=== PATIENT | male | born 1945 | race Caucasian/White ===

== ENCOUNTER 2017-01-26 18:01 | Inpatient (IN) ==
--- NOTE | 2017-01-26 18:03 | Emergency Department Note ---
Disposition Clinical Impression: Small bowel obstruction Disposition: Admitted As Inpatient Condition: Critical General Adult HPI - General Chief complaint: ED Abdominal Pain Stated complaint: Abdominal Pain Time Seen by Provider: 01/26/17 18:02 Nursing Notes Reviewed: Yes Vital Signs Reviewed: Yes - History of Present Illness HPI Narrative: Mr. Mccain, 71-year-old male, presents from home via EMS with chief complaint of abdominal pain. Onset 7 hours ago. Described as diffuse cramping. States he has had this same pain before and it was that his bowels were not moving. Patient has a past medical history of prostate cancer and colon cancer with colectomy and colostomy bag. Patient states he last replaced his colostomy bag 3 days ago and it is still empty on my initial evaluation. - Related Data Home Medications Medication Instructions Recorded Confirmed Atorvastatin [Lipitor] 40 mg PO DAILY 09/22/15 10/03/16 Ferrous Sulfate 325 mg PO BID 09/22/15 10/03/16 Furosemide [Lasix] 40 mg PO DAILY 09/22/15 10/03/16 Glimepiride [Amaryl] 4 mg PO DAILY 09/22/15 10/03/16 Potassium Chloride 40 meq PO DAILY 09/22/15 10/03/16 Ranitidine HCl [Zantac] 150 mg PO BID 09/22/15 10/03/16 Metoprolol [Lopressor] 25 mg PO BID 05/14/16 10/03/16 SitaGLIPtin [Januvia] 100 mg PO DAILY 05/14/16 10/03/16 Albuterol Sulfate [Proair Hfa] 2 puff IH Q4H PRN 06/07/16 10/03/16 Aspirin 81 mg PO DAILY 08/13/16 10/03/16 Diltiazem HCl [Diltiazem 24Hr Cd] 120 mg PO DAILY 08/13/16 10/03/16 Metformin [Glucophage] 500 mg PO BIDWM 08/13/16 10/03/16 Beclomethasone Diprop 80mcg [QVAR 1 puff IH BID 10/03/16 10/03/16 80 mcg] Previous Rx's Medication Instructions Recorded Docusate [Colace] 100 mg PO BID #60 capsule 09/30/15 Folic Acid 1 mg PO DAILY #30 tablet 11/01/15 Fluconazole [Diflucan] 400 mg PO DAILY #7 tablet 10/05/16 Nitrofurantoin [Macrodantin] 50 mg PO Q6HR #28 capsule 10/05/16 Allergies Allergy/AdvReac Type Severity Reaction Status Date / Time No Known Allergies Allergy Verified 10/03/16 08:58 All systems ED: reviewed and negative except as stated. Constitutional: Denies: fever, chills, weakness Cardiovascular: Denies: chest pain, palpitations, dyspnea on exertion, syncope Respiratory: Denies: cough, dyspnea, wheezes, hemoptysis Gastrointestinal: Reports: abdominal pain, nausea, constipation. Denies: vomiting, diarrhea, hematemesis, melena, hematochezia Genitourinary: Denies: dysuria Musculoskeletal: Denies: back pain Neurological: Denies: headache, weakness, numbness, paresthesias, confusion Hematological/Lymphatic: Denies: easy bleeding, easy bruising Past Medical History - Past Medical History Medical history: Reports: cancer, diabetes, GERD, hyperlipidemia, hypertension, kidney stones, other Surgical history: Reports: colectomy, colostomy, other (bladder stone removal) Psychiatric history: Reports: no psych history - Social History Smoking Status: Never smoker Smokeless Tobacco Status: No Alcohol use: Reports: none Drug use: Reports: none Physical Exam General: Patient is alert, oriented, and in no acute distress. HEENT: No facial asymmetry. Head is normocephalic and atraumatic. Trachea midline. Cardiovascular: Heart regular rate and rhythm without clicks, rubs, gallops, or murmurs. No JVD. PMI nondisplaced. Respiratory: Symmetric chest rise with good respiratory effort. Bilateral breath sounds are clear without wheezing, crackles, or rhonchi. Abdomen: Obese. Multiple well-healed postsurgical scars. Ostomy bag present in right lower quadrant abdominal wall. Ostomy mucosa is nonerythematous, non- pustulant, and appropriately proud of the abdominal wall. Ostomy bag with scant fluid and no stool. Bowel sounds present 4 quadrants. Abdomen diffusely tender, nondistended, without guarding. Psych: Patient's affect is appropriate for situation. Course Course Narrative: Chart check: Patient was discharged from this facility 10/03/16 with primary diagnosis of small bowel obstruction which resolved with conservative measures. Patient's lab work is concerning for elevated lactate with mild leukocytosis. Patient CT scan without IV with oral contrast indicates small bowel structure. Abdomen/Pelvis CT 01/26/17 19:45 IMPRESSION: 1. Partial small bowel obstruction with a transition point in the pelvis probably in the distal ileum. 2. Status post left hemicolectomy with a right lower quadrant colostomy. 3. Significantly abnormal appearance of the urinary bladder unchanged from 01/10/2017. 4. Diffuse hepatic steatosis. 5. Status post cholecystectomy. D/ / Warner Arce MD / Warner Arce MD Interpreting Provider: Warner Arce MD We will continue IV fluid rehydration, continue nothing by mouth status, pain control, nausea control, place NG tube. Because the patient was seen this past September by Dr. Miller, [facility], will call the on-call surgeon, Dr. Li, to inquire as to his wishes for admission. Dr. Li agrees to admission to the hospitalist with [facility] following. Spoke with Dr. Echols, on-call hospitalist, he agrees to admission. Fluid Restrepo: 2 L while in the ED. Vital Signs Temperature 98.0 F 01/26/17 18:03 Pulse Rate 95 01/26/17 18:03 Respiratory Rate 18 01/26/17 18:03 Blood Pressure 176/87 01/26/17 18:03 O2 Sat by Pulse Oximetry 93 L 01/26/17 18:03 Temperature 98.0 F 01/26/17 18:03 Pulse Rate 105 01/26/17 21:00 Respiratory Rate 16 01/26/17 21:00 Blood Pressure 164/69 01/26/17 21:00 O2 Sat by Pulse Oximetry 95 01/26/17 21:00 Oxygen Delivery Oxygen Delivery Room Air Medical Decision Making - Medical Records Medical records reviewed: Yes I reviewed the patient's medical records. - Lab Data Result diagrams: 01/26/17 19:08 01/26/17 19:08 Lab Results 01/26/17 01/26/17 01/26/17 Range/Units 19:08 19:08 19:08 WBC 11.8 H (4.3-11.1) K/mcL RBC 4.94 (4.19-5.50) M/mcL Hgb 14.2 (12.9-16.9) g/dL Hct 44.4 (37.5-50.1) % MCV 89.9 (83.0-100.0) fL MCH 28.7 (28.0-33.3) pg MCHC 32.0 (31.6-35.5) g/dL RDW 14.6 H (11.5-14.5) % Plt Count 259 (140-400) K/mcL MPV 10.5 (9.4-12.4) fL Immature Gran % 0.6 (0-4) % Seg Neutrophils % 83.6 % Lymphocytes % 8.4 % Monocytes % 6.3 % Eosinophils % 0.3 % Basophils % 0.8 % Neutrophils # 9.9 H (1.6-8.9) K/mcL Lymphocytes # 1.0 (0.6-4.6) K/mcL Monocytes # 0.8 (0.0-1.3) K/mcL Eosinophils # 0.0 (0.0-0.6) K/mcL Basophils # 0.1 (0.0-0.2) K/mcL PT 12.8 H (9.4-12.1) Seconds INR 1.2 APTT 44.2 H (26.0-36.0) Seconds Sodium 142 (136-145) mEq/L Potassium 3.8 (3.5-4.5) mEq/L Chloride 100 (98-109) mEq/L Carbon Dioxide 27 (19-29) mEq/L BUN 19 (8-26) mg/dL Creatinine 1.17 (0.72-1.25) mg/dL Est GFR ( Amer) > 60 (> 60) Est GFR (Non-Af Amer) > 60 (> 60) BUN/Creatinine Ratio 16 (6-26) Glucose 198 H (70-99) mg/dL Calculated Osmolality 302 H (280-300) Lactic Acid (0.5-2.2) mmol/L Calcium 10.4 (8.6-10.8) mg/dL Total Bilirubin 0.5 (0.2-1.2) mg/dL Direct Bilirubin 0.3 (0.0-0.5) mg/dL Indirect Bilirubin 0.2 (0.0-1.2) mg/dL AST 52 H (5-34) Units/L ALT 36 (0-55) Units/L Alkaline Phosphatase 87 (38-126) Units/L Serum Total Protein 8.1 (6.0-8.3) g/dL Albumin 3.5 (3.5-5.0) g/dL Globulin 4.6 H (2.4-3.5) g/dL Albumin/Globulin Ratio 0.8 L (1.1-2.2) Lipase 32 (8-78) Units/L 01/26/17 Range/Units 19:08 WBC (4.3-11.1) K/mcL RBC (4.19-5.50) M/mcL Hgb (12.9-16.9) g/dL Hct (37.5-50.1) % MCV (83.0-100.0) fL MCH (28.0-33.3) pg MCHC (31.6-35.5) g/dL RDW (11.5-14.5) % Plt Count (140-400) K/mcL MPV (9.4-12.4) fL Immature Gran % (0-4) % Seg Neutrophils % % Lymphocytes % % Monocytes % % Eosinophils % % Basophils % % Neutrophils # (1.6-8.9) K/mcL Lymphocytes # (0.6-4.6) K/mcL Monocytes # (0.0-1.3) K/mcL Eosinophils # (0.0-0.6) K/mcL Basophils # (0.0-0.2) K/mcL PT (9.4-12.1) Seconds INR APTT (26.0-36.0) Seconds Sodium (136-145) mEq/L Potassium (3.5-4.5) mEq/L Chloride (98-109) mEq/L Carbon Dioxide (19-29) mEq/L BUN (8-26) mg/dL Creatinine (0.72-1.25) mg/dL Est GFR ( Amer) (> 60) Est GFR (Non-Af Amer) (> 60) BUN/Creatinine Ratio (6-26) Glucose (70-99) mg/dL Calculated Osmolality (280-300) Lactic Acid 4.3 H* (0.5-2.2) mmol/L Calcium (8.6-10.8) mg/dL Total Bilirubin (0.2-1.2) mg/dL Direct Bilirubin (0.0-0.5) mg/dL Indirect Bilirubin (0.0-1.2) mg/dL AST (5-34) Units/L ALT (0-55) Units/L Alkaline Phosphatase (38-126) Units/L Serum Total Protein (6.0-8.3) g/dL Albumin (3.5-5.0) g/dL Globulin (2.4-3.5) g/dL Albumin/Globulin Ratio (1.1-2.2) Lipase (8-78) Units/L - EKG Data EKG #1 EKG results narrative: EKG dated 01/26/17 at 18:16 interpreted as sinus rhythm with rate of 95. Normal intervals NH 124, QRS 93, QT/QTC 350/42. Normal axis. Nonspecific ST-T wave changes. Attestation Statement - Attestation Attestation: I examined this patient and my medical decision-making was reviewed with the MANAGER SYSTEMS/PA/Advanced Practice Nurse/Resident Physician. I agree with the documented findings, disposition and treatment plan as described except to the extent set forth below. [id number] time provided Patient presents via EMS from home. He has a known history of colon cancer and colostomy. He complains of abdominal pain. Symptoms started 7 hours ago. He does describe associated nausea and vomiting. He appears slightly uncomfortable on exam. Most recent CT abdomen and pelvis transcribed report dated December 2016 results reviewed by me
[2017-01-26] MEDS ORDERED: *HR* HYDROmorphone (PF) 1 MG/ML SYRINGE IVP ONE (18:04)
[2017-01-26] MEDS ORDERED: Ondansetron 4 MG/2 ML VIAL IVP STA ×2 (18:04→18:36)
[2017-01-26] MEDS ORDERED: 0.9 % Sodium Chloride 1,000 ML IVC ONE (18:05)
[2017-01-26 19:18] LABS: Basophils # 0.1 K/mcL (0.0-0.2); Basophils % 0.8 %; Eosinophils % 0.3 %; Hematocrit 44.4 % (37.5-50.1); Hemoglobin 14.2 g/dL (12.9-16.9); Immature Granulocytes % 0.6 % (0-4); Lymphocytes % 8.4 %; Mean Corpuscular Hemoglobin 28.7 pg (28.0-33.3); Mean Corpuscular Volume 89.9 fL (83.0-100.0); Mean Platelet Volume 10.5 fL (9.4-12.4); Monocytes # 0.8 K/mcL (0.0-1.3); Monocytes % 6.3 %; Neutrophils # 9.9 K/mcL (1.6-8.9); Platelet Count 259 K/mcL (140-400); Red Blood Count 4.94 M/mcL (4.19-5.50); Red Cell Distribution Width 14.6 % (11.5-14.5); Segmented Neutrophils % 83.6 %
[2017-01-26 19:23] LABS: INR 1.2; Prothrombin Time 12.8 Seconds (9.4-12.1)
[2017-01-26 19:25] LABS: Activated Partial Thrombo Time 44.2 Seconds (26.0-36.0)
[2017-01-26 19:34] LABS: Alanine Aminotransferase 36 Units/L (0-55); Albumin 3.5 g/dL (3.5-5.0); Albumin/Globulin Ratio 0.8 (1.1-2.2); Alkaline Phosphatase 87 Units/L (38-126); Aspartate Amino Transferase 52 Units/L (5-34); BUN/Creatinine Ratio 16 (6-26); Bilirubin,Direct 0.3 mg/dL (0.0-0.5); Bilirubin,Indirect 0.2 mg/dL (0.0-1.2); Bilirubin,Total 0.5 mg/dL (0.2-1.2); Blood Urea Nitrogen 19 mg/dL (8-26); Calcium 10.4 mg/dL (8.6-10.8); Carbon Dioxide 27 mEq/L (19-29); Chloride 100 mEq/L (98-109); Globulin 4.6 g/dL (2.4-3.5); Glucose 198 mg/dL (70-99); Lipase 32 Units/L (8-78); Osmolality,Calculated 302 (280-300); Potassium 3.8 mEq/L (3.5-4.5); Sodium 142 mEq/L (136-145); Total Protein 8.1 g/dL (6.0-8.3); eGFR For African Americans > 60 (> 60); eGFR For Non-African Americans > 60 (> 60)
[2017-01-26] MEDS ORDERED: *HR* Morphine 2 MG/ML SYRINGE IVP ONE ×2 (19:42→21:43)
[2017-01-26] MEDS ORDERED: *HR* Metoprolol 5 MG/5 ML VIAL IVP PRN (21:50)
[2017-01-26] MEDS ORDERED: *HR* Promethazine 25 MG/ML VIAL IVP PRN (21:50)
[2017-01-26] MEDS ORDERED: Ondansetron 4 MG/2 ML VIAL IVP PRN (21:50)
[2017-01-26] MEDS ORDERED: *HR* Dextrose 50 % in Water (Syg) 50 ML SYRINGE IVP PRN (21:56)
[2017-01-26] MEDS ORDERED: Dextrose Gel 15 GM PO PRN ×2 (21:56)
[2017-01-26] MEDS ORDERED: D5% in Water 1,000 ML IV PRN (21:56)
--- NOTE | 2017-01-26 21:57 | Internal Med History&Physical ---
Date of Encounter: 01/26/17 Time of Encounter: 21:57 Assessment and Plan (1) Small bowel obstruction Current visit: Yes Status: Acute Patient presented the emergency department with diffuse abdominal pain. Found on CT scan to have a partial small bowel projection with transition point in the pelvis, most likely distal ileum. Surgery consulted from the ED. NG tube placed and 1250 mL drained in the ED. Patient admitted for trial of conservative managment. Patient will be NPO with NG tube to low intermittent section. Supportive management. 1. NPO 2. NGT - low intermittent wall suction 3. Pain management 4. Zofran for nausea as needed 5. IVF at 124 mls/hour 6. KUB in the morning 7. Monitor electrolytes 8. Appreciate surgery evaluation and management. (2) Elevated lactic acid level Current visit: Yes Status: Acute Initial LA of 4.3. Believe this is secondary to patient's SBO. Patient given 2L fluids total and started on maintenance fluids. Will trend Lactic Acid. 1. Second fluid bolus 2. Maintenance fluids 3. Jaycob lactic acid. (3) Leg edema, left Current visit: Yes Status: Acute Patient found to have left lower extremity edema and redness. No warmth or tenderness. No wounds on exam. Will get a LLE venous duplex. 1. LLE venous duplex. (4) Diabetes mellitus Current visit: No Status: Chronic Patient with history of DM. Will hold oral medications. Check accuchecks every 6 hours. Low-dose sliding scale insulin. Qualifiers: Diabetes mellitus type: type 2 Diabetes mellitus complication status: with hyperglycemia Diabetes mellitus intermediate insulin use: without intermediate use Qualified Code(s): E11.65 - Type 2 diabetes mellitus with hyperglycemia (5) Hypertension Current visit: No Status: Chronic Patient with hypertension on PO medication. Will scheduled metoprolol 2.5mg IV every 8 hours to control blood pressures. Qualifiers: Hypertension type: essential hypertension Qualified Code(s): I10 - Essential (primary) hypertension (6) DVT prophylaxis Current visit: Yes Status: Acute Heparin for DVT prophylaxis. Internal Medicine - H&P: HPI Chief complaint: Abdominal pain Admitted From: Emergency Dept Plans for Post Hospital Care: Home History of present illness: Mr. Mccain is a 71 year old male with PMH of prostate cancer, colon cancer s/p left hemicolectomy and colostomy, failure of left lower quadrant colostomy, DM not on insulin, GERD, HLD and HTN. Patient presents to the ED with diffuse, cramping, abdominal pain starting this morning. He reports that the pain got progressively worse throughout the day until it was a 9/10 in severity. He reports similar pain in the past with previous bowel obstructions. Patient reports 2 previous small bowel obstructions managed conservatively. His last SBO was managed here at [facility] 09/2016. Patient reports associated decreased ostomy output. He reports that he last changed his ostomy bag 3 days ago and has had no output since. He also reporrts associated PINEDA and nausea/vomiting. He denies changes in vision, shortness of breath, chest pain or pressure, change in bladder function (incontience at baseline), or focal neurological deficits. In the ED, patient was afebrile, vital signs within normal limits. Labs revealed an elevated PT/PTT most likely secondary to liver disease. Lactic acid elevated at 4.3. CT done with oral contrast, no IV contrast, showed a partial SBO with transition point in the pelvis, most likely distal ileum. Dr. Li (general surgery) was called from the ED and he agreed to consult on the patient. Because of nausea/vomiting, NG tube was place and patient had 1250cc out immediately and then it was placed on low-intermittent wall suction. On exam, patient is awake and alert, no acute distress. NGT in place and draining appropriately. Heart regular rate and rhythm. Lungs clear to auscultation BL. There is a RLQ ostomy in place - site is clean and intact, no erythema or irritation noted. Minimal fecal output in the ostomy bag. Abdomen is distended and diffusely tender. No rebound, rigidity or guarding. Patient does have lower extremity swelling, left quite a bit worse than right. Left leg is also a little erythematous and warm. Patient reports it has been like that for 3-4 mo and has seen a doctor about it. Leg inspected - no open or healing wounds noted. Past Med Surg Social Fam HX - Past Medical History Medical history: cancer, diabetes, GERD, hyperlipidemia, hypertension, kidney stones, other Psychiatric history: no psych history - Past Surgical History Surgical History: colectomy, colostomy, other (bladder stone removal) - Social History Smoking Status: Never smoker Smokeless Tobacco Status: No Alcohol use: none Drug use: none - Family History Father Adopted: No Living Status: Hx Family Cardiac Disorders: Yes Hx Family Respiratory Disorders: No Hx Family Cancer: No Hx Family GI Disorders: No Hx Family Endocrine Disorder: No Hx Family Neuromuscular Disorders: No Hx Family Neurologic Disorders: No Hx Family HEENT Disorders: No Hx Family Autoimmune Disorders: No Internal Medicine - H&P: Meds Atorvastatin [Lipitor] 40 mg PO DAILY 09/22/15 [History] Ferrous Sulfate 325 mg PO BID 09/22/15 [History] Furosemide [Lasix] 40 mg PO DAILY 09/22/15 [History] Glimepiride [Amaryl] 4 mg PO DAILY 09/22/15 [History] Potassium Chloride 40 meq PO DAILY 09/22/15 [History] Ranitidine HCl [Zantac] 150 mg PO BID 09/22/15 [History] Docusate [Colace] 100 mg PO BID #60 capsule 09/30/15 [Rx] Folic Acid 1 mg PO DAILY #30 tablet 11/01/15 [Rx] Metoprolol [Lopressor] 25 mg PO BID 05/14/16 [History] SitaGLIPtin [Januvia] 100 mg PO DAILY 05/14/16 [History] Albuterol Sulfate [Proair Hfa] 2 puff IH Q4H PRN 06/07/16 [History] Aspirin 81 mg PO DAILY 08/13/16 [History] Diltiazem HCl [Diltiazem 24Hr Cd] 120 mg PO DAILY 08/13/16 [History] Metformin [Glucophage] 500 mg PO BIDWM 08/13/16 [History] Beclomethasone Diprop 80mcg [QVAR 80 mcg] 1 puff IH BID 10/03/16 [History] Fluconazole [Diflucan] 400 mg PO DAILY #7 tablet 10/05/16 [Rx] Nitrofurantoin [Macrodantin] 50 mg PO Q6HR #28 capsule 10/05/16 [Rx] Allergies No Known Allergies Allergy (Verified 10/03/16 08:58) All Systems PM: A 10-system review of systems was performed and is negative for pertinent findings except as documented above in the HPI. - Constitutional Constitutional: no chills, no fever(s), no falls - EENT Eyes: no blurry vision, no change in vision - Cardiovascular Cardiovascular ROS IM: no chest pain, no diaphoresis, no dyspnea, no dyspnea on exertion, no irregular heart rhythm, no lightheadedness, no palpitations - Respiratory Respiratory: no cough, no dyspnea, no dyspnea on exertion, no wheezing, no chest congestion - Gastrointestinal Gastrointestinal: abdominal pain, bloating, change in bowel habits, constipation , cramping, no diarrhea, no dysphagia, no hematemesis, no hematochezia, no melena - Genitourinary Genitourinary ROS male: urinary incontinence - Integumentary Additional comments: Left lower leg is swollen and red - Constitutional Vitals: Temp Pulse Resp BP Pulse Ox 98.0 F 106 18 174/101 93 L 01/26/17 18:03 01/26/17 21:50 01/26/17 21:50 01/26/17 21:50 01/26/17 21:50 General appearance: Present: A&O X 3, pleasant, no acute distress, answers questions appropriately - Head Head exam: Present: atraumatic, normal inspection, normocephalic - Eye Eye exam: Present: EOMI, normal appearance, PERRL - ENT ENT exam: Present: mucous membranes dry Additional comments: NG tube in place - Respiratory Respiratory exam: Present: CTAB. Absent: rales, rhonchi, wheezes - Cardiovascular Cardiovascular exam: Present: RRR - GI/Abdominal GI/Abdominal exam: Present: distended, normal bowel sounds, soft, tenderness. Absent: guarding, rebound, rigid Additional comments: RLQ colostomy - clean and intact, no signs of infection or irritation - Extremities Exam Extremities exam: Present: pedal edema (left leg). Absent: calf tenderness, tenderness, warm - Neurological Exam Neurological exam: Present: alert, CN II-XII intact, oriented X3, no focal deficits Internal Med - H&P Results - Labs CBC & Chem 7: 01/26/17 19:08 01/26/17 19:08 - Impressions ITS Impressions Abdomen/Pelvis CT 01/26/17 19:45 IMPRESSION: 1. Partial small bowel obstruction with a transition point in the pelvis probably in the distal ileum. 2. Status post left hemicolectomy with a right lower quadrant colostomy. 3. Significantly abnormal appearance of the urinary bladder unchanged from 01/10/2017. 4. Diffuse hepatic steatosis. 5. Status post cholecystectomy. D/ / Warner Arce MD / Warner Arce MD Interpreting Provider: Warner Arce MD
[2017-01-26] MEDS: 0.9 % Sodium Chloride 1,000 ML IVC SCH (22:02)
[2017-01-26 22:07] LABS: Hemoglobin A1C 6.9 %
[2017-01-26] MEDS: Insulin LISPRO 300 UNITS/3 ML VIAL SQ SCH (23:15)
--- NOTE | 2017-01-26 23:55 | Event Note ---
Date of Encounter: 01/26/17 Time of Encounter: 23:53 Patient seen and examined with medical supply technician. Agree with assessment and plan. Patient presents with small bowel obstruction. NG tube retrieved 1 L of intestinal secretion upon insertion. Patient has elevated lactic acid of 4.3. Likely related to the bowel obstruction. No clear infection source. Urine analysis will be checked. He is afebrile. Keep NPO continue NG tube total intermittent suction. Will give 2 liters bolus of normal saline. Continue normal saline 125/h afterwards. Surgery to see the patient.
[2017-01-27] MEDS ORDERED: 0.9 % Sodium Chloride 1,000 ML IVC ONE (00:21)
[2017-01-27] MEDS: *HR* Metoprolol 5 MG/5 ML VIAL IVP SCH ×4 (00:33→23:51)
[2017-01-27 04:29] LABS: Basophils % 0.5 %; Eosinophils % 0.3 %; Hematocrit 36.6 % (37.5-50.1); Immature Granulocytes % 0.6 % (0-4); Lymphocytes % 11.6 %; Mean Corpuscular HGB Conc 31.4 g/dL (31.6-35.5); Mean Corpuscular Hemoglobin 28.8 pg (28.0-33.3); Mean Corpuscular Volume 91.5 fL (83.0-100.0); Mean Platelet Volume 10.4 fL (9.4-12.4); Monocytes # 0.8 K/mcL (0.0-1.3); Monocytes % 8.7 %; Platelet Count 205 K/mcL (140-400); Red Cell Distribution Width 14.6 % (11.5-14.5); Segmented Neutrophils % 78.3 %
[2017-01-27 04:33] LABS: Hemoglobin 11.5 g/dL (12.9-16.9)
[2017-01-27 04:48] LABS: BUN/Creatinine Ratio 18 (6-26); Blood Urea Nitrogen 17 mg/dL (8-26); Carbon Dioxide 26 mEq/L (19-29); Chloride 105 mEq/L (98-109); Glucose 133 mg/dL (70-99); Magnesium 1.5 mg/dL (1.6-2.6); Osmolality,Calculated 297 (280-300); Phosphorous 3.7 mg/dL (2.3-4.7); Potassium 3.7 mEq/L (3.5-4.5); Sodium 142 mEq/L (136-145); eGFR For African Americans > 60 (> 60); eGFR For Non-African Americans > 60 (> 60)
[2017-01-27 04:59] LABS: Calcium 8.2 mg/dL (8.6-10.8)
[2017-01-27] MEDS: Insulin LISPRO 300 UNITS/3 ML VIAL SQ SCH ×3 (05:48→16:50)
[2017-01-27] MEDS: *HR* Heparin 5,000 UNIT/ML VIAL SQ SCH ×3 (05:55→21:29)
[2017-01-27] MEDS: Pantoprazole 40 MG VIAL IVP SCH (05:56)
[2017-01-27] MEDS: 0.9 % Sodium Chloride 1,000 ML IVC SCH (08:52)
[2017-01-27] MEDS ORDERED: Magnesium Sulfate 2 GM in D5% in Water 100 ML IVPB ONE (08:55)
[2017-01-27] MEDS ORDERED: Ringers Solution, Lactated 1,000 ML IVC SCH ×2 (09:00)
[2017-01-27] MEDS ORDERED: Potassium Chloride 20 MEQ in Ringers Solution, Lactated 1,000 ML IVC SCH (13:30)
--- NOTE | 2017-01-27 15:17 | Venous Imaging Report ---
LE Venous Duplex Patient Name:Oj Mccain Order Number:[id number] Procedure Date:01/27/2017 Date:1945ge:71 yrs Gender:Male Location:[facility] Room #: 3B54 Networking Administrator:Karen Gillespie RVT Referring MD:Natalie Allred DO apprentice stylist:Guillermo Garibay MD Reading MD:Bertin Bernard MD , FACS Secondary Indications: Risk Factors Yes/No Anticoagulants Yes Impressions: Left lower extremity: normal superficial and deep exam. Right lower extremity: normal contralateral exam. Recommendations: Test completed on 01/27/2017 at 9:31:07 am. Critical findings reported to Zoe RN in person at 9:31:14 am on 01/27/2017 by Karen Gillespie RVT. Findings Venous Duplex Results: Right: Venous imaging of the lower extremity reveals full patency and normal vessel compressibility of the right common femoral. Doppler signals in the evaluated veins were normal. Left: Venous imaging of the lower extremity reveals full patency and normal vessel compressibility of the left distal iliac, left common femoral, left superficial femoral, left popliteal, left posterior tibial, left peroneal, left great saphenous and left lesser saphenous. Doppler signals in the evaluated veins were normal. Updated by Bertin Bernard MD, FACS on 01/27/2017 3:13:58 PM Bertin Bernard MD electronically signed on 01/27/2017 3:14:31 PM with status of Final
[2017-01-27] MEDS: Potassium Chloride 20 MEQ in Ringers Solution, Lactated 1,000 ML IVC SCH ×2 (16:50→21:22)
[2017-01-27] MEDS: *HR* Morphine 2 MG/ML SYRINGE IVP PRN ×2 (17:01→21:27)
[2017-01-27] MEDS ORDERED: Chloraseptic Spray 177 ML BOTTLE MM PRN (21:21)
--- NOTE | 2017-01-27 23:58 | Internal Med Progress Note ---
Date of Encounter: 01/27/17 Time of Encounter: 14:30 - Subjective Interval history: Mr. Mccain is a 71 year old male with PMH of prostate cancer, colon cancer s/p left hemicolectomy and colostomy, failure of left lower quadrant colostomy, DM not on insulin, GERD, HLD and HTN. admitted with partial small bowel obstruction , CT evidence of transition point in the distal ileum. Giving his history of multiple abdominal surgeries, adhension suspected. He feels better, much less abdominal pain, or nausea. NG tube in place. O/E: Not in distress NG tube in place Dry oral mucosa likely due to mouth breathing (related to NG-tube) Chest: clinically clear Heart: RRR, HS1/2 no Abdomen: non-distended, soft, non-tender, no masses, BS+, DIRECTOR OF RESTAURANTS: aao x 3, no gross focal deficits Labs and imaging reviewed IMP Partial small bowel obstruction, NG- tube inserted, connected to low intermittent suction Lactic acidemia, corrected Left lower e xtremity swelling, likely venous insufficiency, no DVT on venous doppler DM2, NPO, accuchecks Q6H on low dose sliding scale HTN on metoprolol IV Q8H. Marginal hypomagnesemia, replaced DVT prophylaxis PLAN Switch fluid to RL @ 20Meq of KCl to run @ 150 IV Magnesium sulfate 2g x 1. Monitor electrolytes KUB in the AM Serial abdominal exam Keep NPO. Continue other care. - Constitutional Vitals: Temp Pulse Resp BP Pulse Ox 98.0 F 85 14 134/81 94 L 01/27/17 23:08 01/27/17 23:08 01/27/17 23:08 01/27/17 23:08 01/27/17 23:08 General appearance: Present: A&O X 3, pleasant, no acute distress, answers questions appropriately Internal Medicine: Result - Labs CBC & Chem 7: 01/27/17 04:16 01/27/17 04:16 Labs: Short CBC 01/27/17 Range/Units 04:16 WBC 8.9 (4.3-11.1) K/mcL Hgb 11.5 L D (12.9-16.9) g/dL Hct 36.6 L (37.5-50.1) % Plt Count 205 (140-400) K/mcL Neutrophils # 7.0 (1.6-8.9) K/mcL BMP 01/27/17 04:16 Sodium 142 Potassium 3.7 Chloride 105 Carbon Dioxide 26 BUN 17 Creatinine 0.92 Glucose 133 H Calcium 8.2 L D - ABG Interpretation ABG results: PT/INR, D-dimer PT 12.8 Seconds (9.4-12.1) H 01/26/17 19:08 - Impressions Impressions KUB X-Ray 01/27/17 06:00 IMPRESSION: Appropriate positioning of NGT. D/ / Dain Lopez MD / Dain Lopez MD Interpreting Provider: Dain Lopez MD - VTE Documentation of Mechanical Device: Intermittent pneumatic compression device Consult Discharge Plan - Plan Referrals: Guillermo gonsales MD [Primary Care Provider] -
[2017-01-28] MEDS: Insulin LISPRO 300 UNITS/3 ML VIAL SQ SCH ×4 (00:17→18:08)
[2017-01-28] MEDS: *HR* Morphine 2 MG/ML SYRINGE IVP PRN ×3 (02:54→18:26)
[2017-01-28] MEDS: Potassium Chloride 20 MEQ in Ringers Solution, Lactated 1,000 ML IVC SCH ×3 (04:34→18:17)
[2017-01-28 04:54] LABS: BUN/Creatinine Ratio 14 (6-26); Blood Urea Nitrogen 12 mg/dL (8-26); Calcium 8.2 mg/dL (8.6-10.8); Carbon Dioxide 26 mEq/L (19-29); Chloride 110 mEq/L (98-109); Glucose 158 mg/dL (70-99); Magnesium 2.3 mg/dL (1.6-2.6); Osmolality,Calculated 299 (280-300); Potassium 4.2 mEq/L (3.5-4.5); Sodium 143 mEq/L (136-145); eGFR For African Americans > 60 (> 60); eGFR For Non-African Americans > 60 (> 60)
[2017-01-28] MEDS: Pantoprazole 40 MG VIAL IVP SCH (05:50)
[2017-01-28] MEDS: *HR* Heparin 5,000 UNIT/ML VIAL SQ SCH ×3 (05:50→21:14)
[2017-01-28] MEDS: *HR* Metoprolol 5 MG/5 ML VIAL IVP SCH ×2 (09:41→18:18)
[2017-01-28 14:18] LABS: Clarity,Urine Turbid (Clear); Color,Urine Red (Yellow); PH,Urine 7.5 pH Units (5.0-8.0)
--- NOTE | 2017-01-28 15:25 | Electrocardiograph Report ---
[place] [id number] Test Date: 2017-01-26 Pat Name: Oj Mccain Department: 104 Room: 3B54 Gender: M Clinical Trials Assistant: : 1945 Requested By: Brayden Wayne Order Number: [id number] Reading MD: Guillermo Clements Measurements Intervals [place] Rate: 95 P: 24 NM: 124 QRS: 50 QRSD: 93 T: 61 QT: 350 QTc: 402 Interpretive Statements SINUS RHYTHM Electronically Signed On 01-28-2017 15:23:31 EDT by Guillermo Clements
--- NOTE | 2017-01-28 15:33 | Internal Med Progress Note ---
Date of Encounter: 01/28/17 Time of Encounter: 10:30 - Subjective Interval history: Mr. Mccain is a 71 year old male with PMH of prostate cancer, colon cancer s/p left hemicolectomy and colostomy, failure of left lower quadrant colostomy, DM not on insulin, GERD, HLD and HTN. admitted with partial small bowel obstruction , CT evidence of transition point in the distal ileum. Giving his history of multiple abdominal surgeries, adhension suspected. He feels better, much less abdominal pain, or nausea. NG tube in place. 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 Marginal hypomagnesemia, replaced DVT prophylaxis PLAN Switch fluid to RL @ 20Meq of KCl to run @ 150 IV Magnesium sulfate 2g x 1. Monitor electrolytes KUB in the AM Serial abdominal exam Keep NPO. Continue other care. - Constitutional Vitals: Temp Pulse Resp BP Pulse Ox 97.9 F 87 17 155/85 93 L 01/28/17 15:07 01/28/17 15:07 01/28/17 15:07 01/28/17 15:07 01/28/17 15:07 General appearance: Present: A&O X 3, pleasant, no acute distress, answers questions appropriately Internal Medicine: Result - Labs CBC & Chem 7: 01/27/17 04:16 01/28/17 03:54 Labs: BMP 01/28/17 03:54 Sodium 143 Potassium 4.2 Chloride 110 H Carbon Dioxide 26 BUN 12 Creatinine 0.86 Glucose 158 H Calcium 8.2 L Urine 01/28/17 Range/Units 12:45 Urine Color Red A (Yellow) Urine Clarity Turbid A (Clear) Urine pH 7.5 (5.0-8.0) pH Units Ur Specific [place] 1.020 (1.010-1.025) Urine Protein TNP Urine Glucose (UA) TNP - ABG Interpretation ABG results: PT/INR, D-dimer PT 12.8 Seconds (9.4-12.1) H 01/26/17 19:08 - Impressions Impressions KUB X-Ray 01/28/17 00:14 IMPRESSION: Limited KUB demonstrating the lower abdomen. Nonspecific bowel gas pattern with no dilated loops of small bowel to indicate obstruction. D/ / Dain Lopez MD / Dain Lopez MD Interpreting Provider: Dain Lopez MD - VTE Documentation of Mechanical Device: Intermittent pneumatic compression device Consult Discharge Plan - Plan [facility] [place] [Primary Care Provider] -
[2017-01-29] MEDS: Insulin LISPRO 300 UNITS/3 ML VIAL SQ SCH ×4 (00:33→17:32)
[2017-01-29] MEDS: *HR* Metoprolol 5 MG/5 ML VIAL IVP SCH ×2 (00:39→09:33)
[2017-01-29] MEDS: Potassium Chloride 20 MEQ in Ringers Solution, Lactated 1,000 ML IVC SCH (05:13)
[2017-01-29] MEDS: Pantoprazole 40 MG VIAL IVP SCH (05:43)
[2017-01-29] MEDS: *HR* Heparin 5,000 UNIT/ML VIAL SQ SCH ×3 (05:43→21:18)
--- NOTE | 2017-01-29 15:41 | Internal Med Progress Note ---
Date of Encounter: 01/29/17 Time of Encounter: 15:39 - Assessment and plan (1) Small bowel obstruction Current Visit: Yes Status: Acute Assessment and plan: due to multiple bowel surgeries in the past. Improving. Repeat KUB Xray shows nonspecific bowel gas pattern. Off nasogastric tube. Start clear liquid diet and advance as tolerated. Noted to have stool output in colostomy bag. Continue supportive care. Monitor electrolytes and replace as needed. (2) Leg edema, left Current Visit: Yes Status: Chronic Assessment and plan: Likely due to chronic venous insufficiency. Venous Doppler of left lower extremity shows no evidence of DVT. Leg elevation. (3) Colon cancer Current Visit: Yes Status: Chronic Qualifiers: Colon location: unspecified part of colon Qualified Code(s): C18.9 - Malignant neoplasm of colon, unspecified (4) DM type 2 (diabetes mellitus, type 2) Current Visit: Yes Status: Chronic Assessment and plan: Continue Accu-Chek blood glucose monitoring with sliding scale insulin as needed. Diabetic diet as tolerated. Qualifiers: Diabetes mellitus complication status: without complication Diabetes mellitus intermediate teacher insulin use: without senior living use Qualified Code(s): E11.9 - Type 2 diabetes mellitus without complications (5) Hypertension Current Visit: Yes Status: Chronic Qualifiers: Hypertension type: essential hypertension Qualified Code(s): I10 - Essential (primary) hypertension - Subjective Interval history: Feels better; no nausea, vomiting; has liquid stool output in Colostomy bag; no abdominal pain; - Constitutional Vitals: Temp Pulse Resp BP Pulse Ox 97.8 F 84 17 178/75 91 L 01/29/17 14:35 01/29/17 14:35 01/29/17 14:35 01/29/17 14:35 01/29/17 14:35 General appearance: Present: A&O X 3, obese, answers questions appropriately - Respiratory Respiratory exam: Present: CTAB. Absent: accessory muscle use, rales, rhonchi, wheezes - Cardiovascular Cardiovascular exam: Present: RRR, +S1, +S2. Absent: diastolic murmur, gallop, rubs, systolic murmur - GI/Abdominal GI/Abdominal exam: Present: normal bowel sounds, soft (obese; RLQ colostomy with dark liquid stool output; nontender), no peritoneal signs. Absent: distended, tenderness Internal Medicine: Result - Labs CBC & Chem 7: 01/27/17 04:16 01/28/17 03:54 - ABG Interpretation ABG results: PT/INR, D-dimer PT 12.8 Seconds (9.4-12.1) H 01/26/17 19:08 - Impressions Impressions KUB X-Ray 01/29/17 06:00 IMPRESSION: Nonspecific bowel gas pattern with no sign of obstruction. D/ / Dain Lopez MD / Dain Lopez MD Interpreting Provider: Dain Lopez MD - VTE Documentation of Mechanical Device: Intermittent pneumatic compression device Consult Discharge Plan - Plan Referrals: Guillermo Garibay MD [Primary Care Provider] -
[2017-01-29] MEDS: Famotidine 20 MG TABLET PO SCH (21:18)
[2017-01-30] MEDS: Insulin LISPRO 300 UNITS/3 ML VIAL SQ SCH ×3 (00:03→12:24)
[2017-01-30] MEDS: *HR* Heparin 5,000 UNIT/ML VIAL SQ SCH (06:20)
[2017-01-30] MEDS ORDERED: Folic Acid 1 MG TABLET PO SCH (09:00)
[2017-01-30] MEDS ORDERED: Aspirin 81 MG TAB.CHEW PO SCH (09:00)
[2017-01-30] MEDS ORDERED: Diltiazem CD (24hr) 240 MG CAPSULE PO SCH (09:00)
[2017-01-30] MEDS ORDERED: Furosemide 40 MG TABLET PO SCH (09:00)
[2017-01-30] MEDS: Famotidine 20 MG TABLET PO SCH (09:39)
[2017-01-30 11:31] VITALS: BP 146/66
--- NOTE | 2017-01-30 12:32 | Discharge Summary ---
Date of Encounter: 01/30/17 Time of Encounter: 11:40 - Discharge Diagnosis (1) Small bowel obstruction Priority: Primary Status: Acute (2) Leg edema, left Priority: Secondary Status: Chronic (3) Colon cancer Priority: Secondary Status: Chronic Qualifiers: Colon location: unspecified part of colon Qualified Code(s): C18.9 - Malignant neoplasm of colon, unspecified (4) DM type 2 (diabetes mellitus, type 2) Priority: Secondary Status: Chronic Qualifiers: Diabetes mellitus complication status: without complication Diabetes mellitus usp insulin use: without buttermaker helper use Qualified Code(s): E11.9 - Type 2 diabetes mellitus without complications (5) Hypertension Priority: Secondary Status: Chronic Qualifiers: Hypertension type: essential hypertension Qualified Code(s): I10 - Essential (primary) hypertension - Discharge Medications Home Medications: Atorvastatin [Lipitor] 40 mg PO DAILY 09/22/15 [History] Ferrous Sulfate 325 mg PO BID 09/22/15 [History] Furosemide [Lasix] 40 mg PO DAILY 09/22/15 [History] Glimepiride [Amaryl] 4 mg PO DAILY 09/22/15 [History] Potassium Chloride 40 meq PO DAILY 09/22/15 [History] Ranitidine HCl [Zantac] 150 mg PO BID 09/22/15 [History] Docusate [Colace] 100 mg PO BID #60 capsule 09/30/15 [Rx] Folic Acid 1 mg PO DAILY #30 tablet 11/01/15 [Rx] Metoprolol [Lopressor] 25 mg PO BID 05/14/16 [History] SitaGLIPtin [Januvia] 100 mg PO DAILY 05/14/16 [History] Albuterol Sulfate [Proair Hfa] 2 puff IH Q4H PRN 06/07/16 [History] Aspirin 81 mg PO DAILY 08/13/16 [History] Diltiazem HCl [Diltiazem 24Hr Cd] 240 mg PO DAILY 08/13/16 [History] Metformin [Glucophage] 500 mg PO BIDWM 08/13/16 [History] Allergies/Adverse Reactions: Allergies No Known Allergies Allergy (Verified 10/03/16 08:58) Date of admission: 01/27/17 00:33 Primary care physician: Guillermo Garibay MD Discharging clinician: Charla Knox date of discharge: 01/30/17 - Patient Status Disposition: Home Health Service Condition: Good Functional capacity at discharge: independent ambulation Overall status at discharge: patient is progressing back to baseline - Discharge Instructions Follow Up With: Guillermo Garibay MD [Primary Care Provider] - (Please follow up with Dr. Garibay in the next 5-7 days. Office is currently closed for lunch.) - Diet and Activity Activity: resume usual activities as tolerated Diet: diabetic diet, low fat, low cholesterol, low salt diet Hospital course: Mr. Mccain is a 71 year old male with the above medical problems admitted with nausea, vomiting and abdominal pain. CT abdomen/pelvis showed changes suggestive of partial small bowel obstruction. He was given conservative medical management with gastric decompression with nasogastric tube to low intermittent wall suction along with IV hydration. He was kept nothing by mouth with when necessary antiemetics and pain control. He gradually improved on this regimen with improved vomiting and abdominal pain. He was able to tolerate oral diet and was noted to have good stool output in colostomy bag. He is currently medically stable for discharge with outpatient follow-up. - Time Spent with Patient Total time spent providing and/or coordinating discharge services: Greater than 30 minutes (45 min) - Constitutional Vitals: Temp Pulse Resp BP Pulse Ox 98.2 F 64 16 146/66 95 01/30/17 07:01 01/30/17 11:27 01/30/17 07:01 01/30/17 11:27 01/30/17 11:27 General appearance: Present: A&O X 3, obese, answers questions appropriately - Respiratory Respiratory exam: Present: CTAB. Absent: accessory muscle use, rales, rhonchi, wheezes - Cardiovascular Cardiovascular exam: Present: RRR, +S1, +S2. Absent: diastolic murmur, gallop, rubs, systolic murmur - GI/Abdominal GI/Abdominal exam: Present: normal bowel sounds, soft, no peritoneal signs. Absent: distended, tenderness Additional comments: colostomy bag with dark liquid stool - VTE Documentation of Mechanical Device: Intermittent pneumatic compression device
--- NOTE | 2017-01-30 12:33 | Physician Discharge Referral ---
Home Health/Hosp Referral Info Transfer to: Home Health Attending Provider: Charla Quiñones Provider in Charge Post Discharge: PCP - Diagnosis (1) Small bowel obstruction Priority: Primary Status: Acute (2) Leg edema, left Priority: Secondary Status: Chronic (3) Colon cancer Priority: Secondary Status: Chronic (4) DM type 2 (diabetes mellitus, type 2) Priority: Secondary Status: Chronic (5) Hypertension Priority: Secondary Status: Chronic - Respiratory Orders Smoking Cessation: Smoking cessation has been advised. For more information, call the [place] Tobacco Quit Line at 6-386-EXDK-NOW. - Diet/Nutrition Diet/Nutrition Orders: Cardiac, No Concentrated Sweets (diabetic) - Activity Activity Orders: Ambulate - Services Needed Following services are medically necessary services: Nursing, Home Health Aide - Transfer Medications Home Medications: Atorvastatin [Lipitor] 40 mg PO DAILY 09/22/15 [History] Ferrous Sulfate 325 mg PO BID 09/22/15 [History] Furosemide [Lasix] 40 mg PO DAILY 09/22/15 [History] Glimepiride [Amaryl] 4 mg PO DAILY 09/22/15 [History] Potassium Chloride 40 meq PO DAILY 09/22/15 [History] Ranitidine HCl [Zantac] 150 mg PO BID 09/22/15 [History] Docusate [Colace] 100 mg PO BID #60 capsule 09/30/15 [Rx] Folic Acid 1 mg PO DAILY #30 tablet 11/01/15 [Rx] Metoprolol [Lopressor] 25 mg PO BID 05/14/16 [History] SitaGLIPtin [Januvia] 100 mg PO DAILY 05/14/16 [History] Albuterol Sulfate [Proair Hfa] 2 puff IH Q4H PRN 06/07/16 [History] Aspirin 81 mg PO DAILY 08/13/16 [History] Diltiazem HCl [Diltiazem 24Hr Cd] 240 mg PO DAILY 08/13/16 [History] Metformin [Glucophage] 500 mg PO BIDWM 08/13/16 [History] Allergies/Adverse Reactions: Allergies No Known Allergies Allergy (Verified 10/03/16 08:58) Certification: Further, I certify that my clinical findings support that this patient is homebound (i.e. absences from home require considerable and taxing effort and are for medical reasons or islam services or infrequently or short duration when for other reasons) because: Homebound Reason: Leaving home requires considerable and taxing effort due to condition Attestation: My signature below is to certify that this patient is under my care and that I, or nurse practitioner, or a physician's health care assistant working with me, has a face-to -face encounter with this patient.
== END 2017-01-30 13:10 | disposition home health service (06) | DRG 389 ==
LOC: EMEROO 18:01 → 3BNU 18:01 → SUATTDRO 01-27 00:33
PROVIDERS: ADMIT Hospitalist; ATTEND Internal Medicine

== ENCOUNTER 2017-03-30 10:44 | Inpatient (IN) ==
--- NOTE | 2017-03-30 11:11 | Emergency Department Note ---
Disposition Clinical Impression: Acute dyspnea Disposition: Admitted As Inpatient Condition: Fair General Adult HPI - General Chief complaint: ED Abdominal Pain Stated complaint: SOB, abdominal pain Time Seen by Provider: 03/30/17 10:48 Source: patient Limitations: no limitations Nursing Notes Reviewed: Yes Vital Signs Reviewed: Yes - History of Present Illness HPI Narrative: Mr. Mccain, a 71yo male, presents from home via EMS with chief complaint of dyspnea and abdominal pain. Abdominal pain has occasionally self resolved after belching. Dyspnea described as dyspnea at rest. Onset 2 weeks ago when he was seen in this emergency department. Patient has not yet followed up with his PCP he has an appointment scheduled. Nothing noted to improve and worsen his dyspnea. Patient does have albuterol inhaler at home which has not improved his symptoms. PMH: Patient denies any past medical history. Medications: Patient states he takes 13 pills in the morning and 5 pills in the evening. He is unsure as to what the medications are or what they are for. Continues to deny any medical problems. Habits: 1.5 pack per day 40 years, quit 3 years ago. Pain Scale: 8 - Related Data Home Medications Medication Instructions Recorded Confirmed Atorvastatin [Lipitor] 40 mg PO DAILY 09/22/15 03/30/17 Ferrous Sulfate 325 mg PO BID 09/22/15 03/30/17 Furosemide [Lasix] 40 mg PO DAILY 09/22/15 03/30/17 Glimepiride [Amaryl] 4 mg PO DAILY 09/22/15 03/30/17 Potassium Chloride 40 meq PO DAILY 09/22/15 03/30/17 Ranitidine HCl [Zantac] 150 mg PO BID 09/22/15 03/30/17 Metoprolol [Lopressor] 25 mg PO DAILY 05/14/16 03/30/17 SitaGLIPtin [Januvia] 100 mg PO DAILY 05/14/16 03/30/17 Albuterol Sulfate [Proair Hfa] 2 puff IH Q4H PRN 06/07/16 03/30/17 Aspirin 81 mg PO DAILY 08/13/16 03/30/17 metFORMIN [Glucophage] 500 mg PO BIDWM 08/13/16 03/30/17 Diltiazem HCl [Diltiazem 24Hr Cd] 120 mg PO DAILY 03/19/17 03/30/17 Previous Rx's Medication Instructions Recorded Docusate [Colace] 100 mg PO BID #60 capsule 09/30/15 Folic Acid 1 mg PO DAILY #30 tablet 11/01/15 Allergies Allergy/AdvReac Type Severity Reaction Status Date / Time No Known Allergies Allergy Verified 03/19/17 10:52 All systems ED: reviewed and negative except as stated. Constitutional: Reports: chills, weakness. Denies: fever Cardiovascular: Reports: dyspnea on exertion, edema. Denies: chest pain, palpitations, orthopnea, syncope Respiratory: Reports: dyspnea. Denies: cough, wheezes, hemoptysis Gastrointestinal: Denies: abdominal pain, nausea, vomiting, diarrhea, constipation, hematemesis, melena Genitourinary: Denies: urgency, dysuria Musculoskeletal: Denies: back pain, neck pain Neurological: Reports: weakness. Denies: headache, numbness, paresthesias Past Medical History - Past Medical History Medical history: Reports: cancer, diabetes, GERD, hyperlipidemia, hypertension, kidney stones, other Surgical history: Reports: colectomy, colostomy, other Psychiatric history: Reports: no psych history - Social History Smoking Status: Former smoker Smokeless Tobacco Status: No Alcohol use: Reports: none Drug use: Reports: none Physical Exam Vital signs reviewed: Patient can think with oxygen saturation above 95% with 4 L nasal cannula. General: Patient is alert, oriented, and in no acute distress. HEENT: No facial asymmetry. Head is normocephalic and atraumatic. PERRLA, EOMI. Cardiovascular: Heart regular rate and rhythm without clicks, rubs, gallops, or murmurs. No JVD. PMI nondisplaced. 2+ bilateral pitting pedal edema. Respiratory: Symmetric chest rise with poor respiratory effort. Bilateral breath sounds with scant wheezing without crackles, or rhonchi. Abdomen: Obese. Bowel sounds present normoactive x-4 quadrants. Abdomen is soft, nondistended, and nontender. No organomegaly noted. Musculoskeletal: Congenital right hand contraction and atrophy. Psych: Patient's affect is appropriate for situation. - General Limitations: no limitations General appearance: alert Course Course Narrative: COPD is possible but is unlikely as patient is a 48 year history of smoking and has never been formally diagnosed as COPD. Additionally, his symptoms did not improve with albuterol or DuoNeb in the ER. Clinically more likely a component of congestive heart failure no echo in July 2016 showed LVEF 60%. Computer -Aided EKG is atrial fibrillation however rhythm is regular with P waves visible in some leads despite the baseline artifact. Chest x-ray does not show Malcolm pulmonary infiltrate. PE and DVT ruled out 11 days ago. Patient was seen and evaluated approximately 2 weeks ago in this ER with negative bilateral DVT Doppler ETA chest negative for PE. CTA did show suspicious right apical irregular nodule which patient has yet to have followed up. Cardiac echo July 2016 showed LVEF 60%. Chest x-ray today unremarkable. Chest X-Ray 03/30/17 11:13 IMPRESSION: 1. No acute pulmonary process. 2. Referred to prior CTA chest 03/19/2017 for evaluation of previously identified subcentimeter pulmonary nodules. D/ / 03/30/2017 11:43:34 Reilly Rothman MD / damon Interpreting Provider: Reilly Rothman MD Troponin negative. EKG unremarkable. BNP 13 and otherwise negative. No anemia. Patient and his parents at bedside agree to admission for dyspnea rest, weakness , rule out ACS. Vital Signs Temperature 97.4 F L 03/30/17 10:46 Pulse Rate 80 03/30/17 10:46 Respiratory Rate 26 03/30/17 10:46 Blood Pressure 145/60 03/30/17 10:46 O2 Sat by Pulse Oximetry 100 03/30/17 10:46 Temperature 97.9 F 03/30/17 16:13 Pulse Rate 76 03/30/17 16:13 Respiratory Rate 18 03/30/17 16:13 Blood Pressure 113/76 03/30/17 16:13 O2 Sat by Pulse Oximetry 97 03/30/17 16:13 Oxygen Delivery Oxygen Delivery Nasal Cannula Medical Decision Making - Medical Records Medical records reviewed: Yes I reviewed the patient's medical records. - Lab Data Lab results reviewed: Yes I reviewed the patient's lab results. Result diagrams: 03/30/17 12:05 03/30/17 12:05 Lab Results 03/30/17 03/30/17 03/30/17 Range/Units 12:05 12:05 12:05 WBC 12.5 H (4.3-11.1) K/mcL RBC 4.92 (4.19-5.50) M/mcL Hgb 14.7 (12.9-16.9) g/dL Hct 45.6 (37.5-50.1) % MCV 92.7 (83.0-100.0) fL MCH 29.9 (28.0-33.3) pg MCHC 32.2 (31.6-35.5) g/dL RDW 14.7 H (11.5-14.5) % Plt Count 227 (140-400) K/mcL MPV 10.2 (9.4-12.4) fL Immature Gran % 0.6 (0-4) % Seg Neutrophils % 79.0 % Lymphocytes % 10.4 % Monocytes % 8.5 % Eosinophils % 0.6 % Basophils % 0.9 % Neutrophils # 9.9 H (1.6-8.9) K/mcL Lymphocytes # 1.3 (0.6-4.6) K/mcL Monocytes # 1.1 (0.0-1.3) K/mcL Eosinophils # 0.1 (0.0-0.6) K/mcL Basophils # 0.1 (0.0-0.2) K/mcL Sodium 134 L (136-145) mEq/L Potassium 4.4 (3.5-4.5) mEq/L Chloride 108 (98-109) mEq/L Carbon Dioxide 11 L (19-29) mEq/L BUN 22 (8-26) mg/dL Creatinine 1.46 H (0.72-1.25) mg/dL Est GFR ( Amer) 58 L (> 60) Est GFR (Non-Af Amer) 48 L (> 60) BUN/Creatinine Ratio 15 (6-26) Glucose 110 H (70-99) mg/dL Calculated Osmolality 282 (280-300) Calcium 9.8 (8.6-10.8) mg/dL Troponin I 0.00 (0-0.03) ng/mL B-Natriuretic Peptide (0-100) pg/mL 03/30/17 Range/Units 12:05 WBC (4.3-11.1) K/mcL RBC (4.19-5.50) M/mcL Hgb (12.9-16.9) g/dL Hct (37.5-50.1) % MCV (83.0-100.0) fL MCH (28.0-33.3) pg MCHC (31.6-35.5) g/dL RDW (11.5-14.5) % Plt Count (140-400) K/mcL MPV (9.4-12.4) fL Immature Gran % (0-4) % Seg Neutrophils % % Lymphocytes % % Monocytes % % Eosinophils % % Basophils % % Neutrophils # (1.6-8.9) K/mcL Lymphocytes # (0.6-4.6) K/mcL Monocytes # (0.0-1.3) K/mcL Eosinophils # (0.0-0.6) K/mcL Basophils # (0.0-0.2) K/mcL Sodium (136-145) mEq/L Potassium (3.5-4.5) mEq/L Chloride (98-109) mEq/L Carbon Dioxide (19-29) mEq/L BUN (8-26) mg/dL Creatinine (0.72-1.25) mg/dL Est GFR ( Amer) (> 60) Est GFR (Non-Af Amer) (> 60) BUN/Creatinine Ratio (6-26) Glucose (70-99) mg/dL Calculated Osmolality (280-300) Calcium (8.6-10.8) mg/dL Troponin I (0-0.03) ng/mL B-Natriuretic Peptide 13 (0-100) pg/mL - Radiology Data Radiology results reviewed: Yes I reviewed the patient's radiology results. - EKG Data EKG #1 EKG attestation: Yes I reviewed and interpreted this EKG. EKG results narrative: EKG dated 03/30/17 at 10:53 interpreted as sinus rhythm with a rate of 82. Normal axis. Basline artifact. Nonspecific ST-T changes. Compared to previous dated 03/19/2017 showing sinus rhythm; no acute ischemic changes in comparison. Attestation Statement - Attestation Attestation: I, Guillermo Zheng, examined this patient and my medical decision-making was reviewed with the LICENSED NURSING ASSISTANT/PA/Advanced Practice Nurse/Resident Physician. I agree with the documented findings, disposition and treatment plan as described except to the extent set forth below. 71-year-old male presents with concerns of increasing shortness of breath and weakness with exertion. Patient states the symptoms worsened over the past week. Patient states he is unable to walk more than 25 feet without becoming short of breath. Patient waited within the past week for similar shortness of breath with a negative CT for PE. Patient is treated for hypertension and hyperlipidemia and has a history of tobacco use. No history of COPD in the patient's past and has never been admitted for COPD exacerbation. Patient reports that he occasionally becomes nauseated with this shortness of breath but denies associated diaphoresis or specific chest pain. Initial troponin is negative. EKG shows normal sinus rhythm with a rate of 82 without evidence of STEMI. Admitted to the hospital for further care and evaluation of weakness and shortness of breath to rule out ACS.
[2017-03-30] MEDS ORDERED: Ipratropium/Albuterol Neb 3 ML IH ONE (11:13)
[2017-03-30 12:16] LABS: Basophils # 0.1 K/mcL (0.0-0.2); Basophils % 0.9 %; Eosinophils # 0.1 K/mcL (0.0-0.6); Eosinophils % 0.6 %; Hematocrit 45.6 % (37.5-50.1); Hemoglobin 14.7 g/dL (12.9-16.9); Immature Granulocytes % 0.6 % (0-4); Lymphocytes # 1.3 K/mcL (0.6-4.6); Lymphocytes % 10.4 %; Mean Corpuscular HGB Conc 32.2 g/dL (31.6-35.5); Mean Corpuscular Hemoglobin 29.9 pg (28.0-33.3); Mean Corpuscular Volume 92.7 fL (83.0-100.0); Mean Platelet Volume 10.2 fL (9.4-12.4); Monocytes # 1.1 K/mcL (0.0-1.3); Monocytes % 8.5 %; Neutrophils # 9.9 K/mcL (1.6-8.9); Platelet Count 227 K/mcL (140-400); Red Blood Count 4.92 M/mcL (4.19-5.50); Red Cell Distribution Width 14.7 % (11.5-14.5)
[2017-03-30 12:34] LABS: Calcium 9.8 mg/dL (8.6-10.8); Potassium 4.4 mEq/L (3.5-4.5)
[2017-03-30] MEDS ORDERED: Naloxone 0.4 MG/ML INJ IVP PRN (14:14)
[2017-03-30] MEDS ORDERED: *HR* Morphine 2 MG/ML SYRINGE IVP PRN (14:14)
[2017-03-30] MEDS ORDERED: Ondansetron 4 MG/2 ML VIAL IVP PRN (14:14)
[2017-03-30] MEDS ORDERED: Acetaminophen 325 MG TABLET PO PRN (14:14)
--- NOTE | 2017-03-30 14:24 | Internal Med History&Physical ---
Date of Encounter: 03/30/17 Time of Encounter: 14:22 Assessment and Plan (1) Acute dyspnea Current visit: Yes Status: Acute Unclear etiology, consider possible pulmonary emboli Ordered d-dimer, cannot perform CT angiogram of the chest due to poor GFR Order a VQ scan and start Lovenox until pulmonary emboli is ruled out Continue oxygen therapy Omeprazole for GI prophylaxis and Lovenox for DVT prophylaxis. Patient will be admitted for observation. Full code. Time spent on this admission 40 minutes. high risk due to comorbidities (2) S/P colon resection Current visit: No Status: Acute Due to history of colon cancer (3) Atrial fibrillation Current visit: No Status: Acute Not on anticoagulation, continue Cardizem and metoprolol Qualifiers: Atrial fibrillation type: paroxysmal Qualified Code(s): I48.0 - Paroxysmal atrial fibrillation (4) Hypertension Current visit: No Status: Chronic Stable, order hydralazine as needed Qualifiers: Hypertension type: essential hypertension Qualified Code(s): I10 - Essential (primary) hypertension (5) DM type 2 (diabetes mellitus, type 2) Current visit: No Status: Chronic Order insulin sliding scale Qualifiers: Diabetes mellitus complication status: without complication Diabetes mellitus retirement insulin use: without retirement use Qualified Code(s): E11.9 - Type 2 diabetes mellitus without complications (6) CHF (congestive heart failure) Current visit: No Status: Chronic History of diastolic CHF was No exacerbation, continue Lasix oral Qualifiers: Congestive heart failure type: diastolic Congestive heart failure chronicity: chronic Qualified Code(s): I50.32 - Chronic diastolic (congestive ) heart failure (7) Small bowel obstruction Current visit: No Status: Acute Recent small bowel obstruction back in January, at the moment Internal Medicine - H&P: HPI Chief complaint: Shortness of breath Admitted From: Emergency Dept History of present illness: Mr. Mccain is a 71 year old male with a past medical history of COPD not oxygen dependent, diabetes type 2 not insulin-dependent, colon cancer, small bowel obstruction discharged from this hospital on 01/30/2017. Comes in hospital complaining of 2 weeks of progressive shortness of breath. The patient has not gained any weight. Chest x-ray shows no abnormalities and his lungs sound clear. His oxygen saturation is 92% on room air, his creatinine has increased progressively from 0.86 Abdullah 1.55 at the beginning of this month and now 1.46. White blood cell count is 12.5 blood pressure 145/60. There is no suspicion of CHF or COPD exacerbations. The patient does not move much around he is not tachycardic but he takes Cardizem and metoprolol. He is in respiratory distress but unfortunately his creatinine is 1.46 GFR is [address] scan of the chest with contrast will not be able to be performed. Denies any other symptoms other than dizziness, cannot rule out pulmonary emboli. Past Med Surg Social Fam HX - Past Medical History Medical history: cancer (Colon cancer status post resection), CHF (Diastolic CHF ), COPD (Not oxygen dependent), diabetes (Not insulin-dependent), GERD, hyperlipidemia, hypertension, kidney stones, other (Small bowel obstruction, paroxysmal atrial fibrillation not on anticoagulation, GERD, UTI with enterococcus, Klebsiella and Proteus in the past, nephrolithiasis) Psychiatric history: no psych history - Past Surgical History Surgical History: colectomy, colostomy, other (Endarterectomy, echocardiogram from July 2016 shows an ejection fraction of 60% with mild diastolic dysfunction) - Social History Smoking Status: Former smoker (Quit 3 years ago, used to smoke 1-1/2 packs per day for 40 years) Smokeless Tobacco Status: No Alcohol use: none Drug use: none - Family History Father Adopted: No Living Status: Hx Family Cardiac Disorders: Yes Hx Family Respiratory Disorders: No Hx Family Cancer: No Hx Family GI Disorders: No Hx Family Endocrine Disorder: No Hx Family Neuromuscular Disorders: No Hx Family Neurologic Disorders: No Hx Family HEENT Disorders: No Hx Family Autoimmune Disorders: No - Additional Family History Additional family history: Father with heart disease Internal Medicine - H&P: Meds Atorvastatin [Lipitor] 40 mg PO DAILY 09/22/15 [History] Ferrous Sulfate 325 mg PO BID 09/22/15 [History] Furosemide [Lasix] 40 mg PO DAILY 09/22/15 [History] Glimepiride [Amaryl] 4 mg PO DAILY 09/22/15 [History] Potassium Chloride 40 meq PO DAILY 09/22/15 [History] Ranitidine HCl [Zantac] 150 mg PO BID 09/22/15 [History] Docusate [Colace] 100 mg PO BID #60 capsule 09/30/15 [Rx] Folic Acid 1 mg PO DAILY #30 tablet 11/01/15 [Rx] Metoprolol [Lopressor] 25 mg PO DAILY 05/14/16 [History] SitaGLIPtin [Januvia] 100 mg PO DAILY 05/14/16 [History] Albuterol Sulfate [Proair Hfa] 2 puff IH Q4H PRN 06/07/16 [History] Aspirin 81 mg PO DAILY 08/13/16 [History] metFORMIN [Glucophage] 500 mg PO BIDWM 08/13/16 [History] Diltiazem HCl [Diltiazem 24Hr Cd] 120 mg PO DAILY 03/19/17 [History] Allergies No Known Allergies Allergy (Verified 03/19/17 10:52) All Systems PM: A 10-system review of systems was performed and is negative for pertinent findings except as documented above in the HPI. Review of systems: Very short of breath, other systems out of the 10 reviewed were negative - Constitutional Vitals: Temp Pulse Resp BP Pulse Ox 97.4 F L 86 18 109/69 99 03/30/17 10:46 03/30/17 12:30 03/30/17 13:30 03/30/17 13:30 03/30/17 12:30 General appearance: Present: A&O X 3 - Head Head exam: Present: atraumatic, normocephalic - Eye Eye exam: Present: PERRL, conjuntiva pink, sclera anicteric Pupils: Present: PERRL - Neck Neck exam general surgery: Present: supple, trachea midline. Absent: lymphadenopathy - Respiratory Respiratory exam: Present: CTAB. Absent: accessory muscle use, rales, rhonchi, wheezes - Cardiovascular Cardiovascular exam: Present: RRR, +S1, +S2. Absent: diastolic murmur, gallop, rubs, systolic murmur - GI/Abdominal GI/Abdominal exam: Present: distended (Colostomy bag in place), normal bowel sounds, soft, no peritoneal signs. Absent: tenderness - Extremities Exam Extremities exam: Present: warm, radial pulses palpable and symetrical. Absent : calf tenderness, cyanotic, pedal edema - Neurological Exam Neurological exam: Present: CN II-XII intact, oriented X3, no focal deficits. Absent: pronater drift, facial droop, speech deficit - Skin Skin exam: Present: dry, intact Internal Med - H&P Results - Labs CBC & Chem 7: 03/30/17 12:05 03/30/17 12:05
[2017-03-30] MEDS ORDERED: D5% in Water 1,000 ML IVC PRN (14:31)
[2017-03-30] MEDS ORDERED: Dextrose Gel 15 GM PO PRN ×2 (14:31)
[2017-03-30] MEDS ORDERED: *HR* Dextrose 50 % in Water (Syg) 50 ML SYRINGE IVP PRN (14:31)
[2017-03-30 14:46] LABS: INR 1.2; Prothrombin Time 12.6 Seconds (9.4-12.1)
[2017-03-30 14:48] LABS: Activated Partial Thrombo Time 45.2 Seconds (26.0-36.0)
[2017-03-30 15:04] LABS: Bilirubin,Urine Negative (Negative); Blood,Urine Large (Negative); Clarity,Urine Cloudy (Clear); Color,Urine Yellow (Yellow); Glucose,Urine (UA) Normal (Normal); Ketones,Urine Negative (Negative); Leukocyte Esterase,Urine Small (Negative); Nitrite,Urine Negative (Negative); PH,Urine 8.5 pH Units (5.0-8.0); Protein,Urine >=300 mg/dL (Neg-Trace); Urobilinogen,Urine Normal (Normal)
[2017-03-30 15:09] LABS: Amorphous Sediment,Urine Few (Few); Bacteria,Urine Many per hpf (None-Few); RBC,Urine 0-3 per hpf (0-3); Squamous Epithelial Cell,Urine Few per lpf (None-Few); WBC,Urine 0-3 per hpf (0-3)
[2017-03-30] MEDS: Insulin LISPRO 300 UNITS/3 ML VIAL SQ SCH (16:39)
[2017-03-30] MEDS: *HR* Enoxaparin 100 MG/ML SYRINGE SQ SCH (17:25)
[2017-03-31 04:17] LABS: Hematocrit 42.1 % (37.5-50.1); Hemoglobin 13.5 g/dL (12.9-16.9); Mean Corpuscular HGB Conc 32.1 g/dL (31.6-35.5); Mean Corpuscular Hemoglobin 28.8 pg (28.0-33.3); Mean Platelet Volume 10.1 fL (9.4-12.4); Platelet Count 226 K/mcL (140-400); Red Blood Count 4.68 M/mcL (4.19-5.50); Red Cell Distribution Width 14.6 % (11.5-14.5)
[2017-03-31 04:24] LABS: Calcium 9.3 mg/dL (8.6-10.8); Potassium 4.4 mEq/L (3.5-4.5)
[2017-03-31] MEDS: *HR* Enoxaparin 100 MG/ML SYRINGE SQ SCH (05:59)
[2017-03-31] MEDS: Insulin LISPRO 300 UNITS/3 ML VIAL SQ SCH ×3 (07:32→16:30)
[2017-03-31] MEDS: *HR* Glimepiride 2 MG TABLET PO SCH (08:14)
[2017-03-31] MEDS: Folic Acid 1 MG TABLET PO SCH (08:14)
[2017-03-31] MEDS: Aspirin 81 MG TAB.CHEW PO SCH (08:15)
[2017-03-31] MEDS ORDERED: Diltiazem CD (24hr) 120 MG CAPSULE PO SCH (09:00)
[2017-03-31] MEDS ORDERED: Furosemide 40 MG TABLET PO SCH (09:00)
--- NOTE | 2017-03-31 12:45 | Electrocardiograph Report ---
[place] [address] Test Date: 2017-03-30 Pat Name: Oj Mccain Department: 102 Room: 2A14 Gender: M Reporting Consultant: Am : 1945 Requested By: Brayden Wayne Order Number: [id number] Reading MD: Guillermo Clements Measurements Intervals [place] Rate: 82 P: [place]: 0 QRS: 51 QRSD: 90 T: 75 QT: 359 QTc: 397 Interpretive Statements ATRIAL FIBRILLATION NONSPECIFIC T-WAVE ABNORMALITY ABNORMAL RHYTHM ECG Electronically Signed On 03-31-2017 12:43:44 EDT by Guillermo Clements
--- NOTE | 2017-03-31 14:27 | Discharge Summary ---
Date of Encounter: 03/31/17 Time of Encounter: 14:23 - Discharge Diagnosis (1) Acute dyspnea Priority: Primary Status: Acute Comments: Possibly secondary to acute viral bronchitis no evidence of COPD or CHF exacerbation (2) S/P colon resection Priority: Secondary Status: Acute (3) Atrial fibrillation Priority: Secondary Status: Acute Qualifiers: Atrial fibrillation type: paroxysmal Qualified Code(s): I48.0 - Paroxysmal atrial fibrillation (4) Hypertension Priority: Secondary Status: Chronic Qualifiers: Hypertension type: essential hypertension Qualified Code(s): I10 - Essential (primary) hypertension (5) DM type 2 (diabetes mellitus, type 2) Priority: Secondary Status: Chronic Qualifiers: Diabetes mellitus complication status: without complication Diabetes mellitus nursing home insulin use: without nursing home use Qualified Code(s): E11.9 - Type 2 diabetes mellitus without complications (6) CHF (congestive heart failure) Priority: Secondary Status: Chronic Qualifiers: Congestive heart failure type: diastolic Congestive heart failure chronicity: chronic Qualified Code(s): I50.32 - Chronic diastolic (congestive ) heart failure (7) Small bowel obstruction Priority: Secondary Status: Acute - Discharge Medications Home Medications: Atorvastatin [Lipitor] 40 mg PO DAILY 09/22/15 [History] Ferrous Sulfate 325 mg PO BID 09/22/15 [History] Furosemide [Lasix] 40 mg PO DAILY 09/22/15 [History] Glimepiride [Amaryl] 4 mg PO DAILY 09/22/15 [History] Potassium Chloride 40 meq PO DAILY 09/22/15 [History] Ranitidine HCl [Zantac] 150 mg PO BID 09/22/15 [History] Docusate [Colace] 100 mg PO BID #60 capsule 09/30/15 [Rx] Folic Acid 1 mg PO DAILY #30 tablet 11/01/15 [Rx] Metoprolol [Lopressor] 25 mg PO DAILY 05/14/16 [History] SitaGLIPtin [Januvia] 100 mg PO DAILY 05/14/16 [History] Albuterol Sulfate [Proair Hfa] 2 puff IH Q4H PRN 06/07/16 [History] Aspirin 81 mg PO DAILY 08/13/16 [History] Diltiazem HCl [Diltiazem 24Hr Cd] 120 mg PO DAILY 03/19/17 [History] Allergies/Adverse Reactions: Allergies No Known Allergies Allergy (Verified 03/19/17 10:52) Procedures/tests Complete & Pending: Procedures Performed prior 72 hours Category Date Time Status VQ Scan [NM pul vent and perfuse] [NM] Routine Exams 03/30/17 14:12 Completed Date of admission: 03/30/17 13:16 Primary care physician: Guillermo Garibay MD Consults: 03/30/17 14:25 Consult to Nutrition [CONS] Routine Comment: Consulting Provider: NUTRITION Reason for Dietary Consult: MST Score - Patient Status Condition: Fair - Discharge Instructions Follow Up With: Guillermo Garibay MD [Primary Care Provider] - Hospital course: Mr. Mccain is a 71 year old male with a past medical history of Colon cancer status post resection), CHF (Diastolic CHF), COPD (Not oxygen dependent, now dependant), diabetes (Not insulin-dependent), GERD, hyperlipidemia, hypertension , kidney stones, other (Small bowel obstruction, paroxysmal atrial fibrillation not on anticoagulation, GERD, UTI with enterococcus, Klebsiella and Proteus in the past, nephrolithiasis Discharged from this hospital on 01/30/2017. Came to the hospital complaining of 2 weeks of progressive shortness of breath. The patient has not gained any weight. Chest x-ray shows no abnormalities and his lungs sound clear. His oxygen saturation is 92% on room air, his creatinine has increased progressively from 0.86 up to 1.55 at the beginning of this month and now 1.46. White blood cell count is 12.5 blood pressure 145/60. There was no suspicion of CHF or COPD exacerbations. The patient did not move much around lately, he was not tachycardic but he takes Cardizem and metoprolol. He was in respiratory distress but unfortunately his creatinine is 1.46 GFR is [address] scan of the chest with contrast could not be performed. D dimer was more than 600, a V?Q scan showed very low probability of pulmonary emboli, Lovenox was discontinued. Does not feel short of breath right now, was given the option to stay another day to monitor his oxygen levels but prefers to go home at this time as he is feeling much better. - Time Spent with Patient Total time spent providing and/or coordinating discharge services: Greater than 30 minutes (40 min) - Constitutional Vitals: Temp Pulse Resp BP Pulse Ox 97.6 F 86 16 109/72 97 03/31/17 11:37 03/31/17 11:37 03/31/17 11:37 03/31/17 11:37 03/31/17 11:37 General appearance: Present: A&O X 3
--- NOTE | 2017-03-31 14:39 | Internal Med Progress Note ---
Date of Encounter: 03/31/17 Time of Encounter: 14:37 - Assessment and plan (1) CHF (congestive heart failure) Current Visit: No Status: Chronic Assessment and plan: Possibly secondary to acute diastolic CHF exacerbation Start IV Lasix, strict I's and O's and daily weight order limited echo canceled discharge Qualifiers: Congestive heart failure type: diastolic Congestive heart failure chronicity: acute on chronic Qualified Code(s): I50.33 - Acute on chronic diastolic (congestive) heart failure (2) Acute dyspnea Current Visit: Yes Status: Acute Assessment and plan: VQ scan was performed and showed very low probability of pulmonary emboli, Lovenox was discontinued Consider pulmonary consult if not improving (3) S/P colon resection Current Visit: No Status: Acute (4) Atrial fibrillation Current Visit: No Status: Acute Assessment and plan: Continue Cardizem and metoprolol Qualifiers: Atrial fibrillation type: paroxysmal Qualified Code(s): I48.0 - Paroxysmal atrial fibrillation (5) Hypertension Current Visit: No Status: Chronic Qualifiers: Hypertension type: essential hypertension Qualified Code(s): I10 - Essential (primary) hypertension (6) DM type 2 (diabetes mellitus, type 2) Current Visit: No Status: Chronic Assessment and plan: ISS Qualifiers: Diabetes mellitus complication status: without complication Diabetes mellitus ad terminal makeup operator insulin use: without care home use Qualified Code(s): E11.9 - Type 2 diabetes mellitus without complications (7) Small bowel obstruction Current Visit: No Status: Acute Assessment and plan: has colostomy bag, Hx of colon cancer - Subjective Interval history: The patient was getting ready to be discharged but felt extremely short of breath and was not able to continue walking, denies any chest pain, no abdominal pain, no dysuria, no fevers or chills - Constitutional Vitals: Temp Pulse Resp BP Pulse Ox 97.6 F 86 16 109/72 97 03/31/17 11:37 03/31/17 11:37 03/31/17 11:37 03/31/17 11:37 03/31/17 11:37 General appearance: Present: A&O X 3 - Head Head exam: Present: atraumatic, normocephalic - Eye Eye exam: Present: PERRL, conjuntiva pink, sclera anicteric Pupils: Present: PERRL - Neck Neck exam general surgery: Present: supple, trachea midline. Absent: lymphadenopathy - Respiratory Respiratory exam: Present: CTAB. Absent: accessory muscle use, rales, rhonchi, wheezes - Cardiovascular Cardiovascular exam: Present: RRR, +S1, +S2. Absent: diastolic murmur, gallop, rubs, systolic murmur - GI/Abdominal GI/Abdominal exam: Present: distended (Colostomy in place), normal bowel sounds , soft, no peritoneal signs. Absent: tenderness - Extremities Exam Extremities exam: Present: warm, radial pulses palpable and symetrical. Absent : calf tenderness, cyanotic, pedal edema - Neurological Exam Neurological exam: Present: CN II-XII intact, oriented X3, no focal deficits. Absent: pronater drift, facial droop, speech deficit Additional comments: Right hand is atrophied - Skin Skin exam: Present: dry, intact Internal Medicine: Result - Labs CBC & Chem 7: 03/31/17 03:53 03/31/17 03:53 Labs: Short CBC 03/31/17 Range/Units 03:53 WBC 10.4 (4.3-11.1) K/mcL Hgb 13.5 (12.9-16.9) g/dL Hct 42.1 (37.5-50.1) % Plt Count 226 (140-400) K/mcL BMP 03/31/17 03:53 Sodium 133 L Potassium 4.4 Chloride 107 Carbon Dioxide 13 L BUN 25 Creatinine 1.48 H Glucose 127 H Calcium 9.3 Urine 03/30/17 Range/Units 14:35 Urine Color Yellow (Yellow) Urine Clarity Cloudy A (Clear) Urine pH 8.5 H (5.0-8.0) pH Units Ur Specific [place] 1.020 (1.010-1.025) Urine Protein >=300 H (Neg-Trace) mg/dL Urine Glucose (UA) Normal (Normal) mg/dL - ABG Interpretation ABG results: PT/INR, D-dimer PT 12.6 Seconds (9.4-12.1) H 03/30/17 14:22 D-Dimer 689 ng/mLFEU (0-500) H 03/30/17 14:22 - Impressions Impressions Pulmonary Perfusion Imaging 03/30/17 14:12 IMPRESSION: Very low probability for pulmonary embolism. D/ / David Monroy MD / David Monroy MD Interpreting Provider: David Monroy MD Consult Discharge Plan - Plan Referrals: Guillermo gonsales MD [Primary Care Provider] -
[2017-03-31] MEDS: Furosemide 40 MG in 0.9 % Sodium Chloride 50 ML IVPB SCH ×2 (14:56→19:44)
[2017-04-01 00:11] LABS: Calcium 8.6 mg/dL (8.6-10.8); Potassium 3.7 mEq/L (3.5-4.5)
[2017-04-01 00:46] LABS: Thyroid Stimulating Hormone 1.122 mcIU/mL (0.350-4.840)
[2017-04-01] MEDS ORDERED: 0.9 % Sodium Chloride 1,000 ML IVC ONE ×2 (01:34→05:54)
[2017-04-01] MEDS ORDERED: 0.9 % Sodium Chloride 1,000 ML ONE (01:35)
[2017-04-01] MEDS ORDERED: 0.9 % Sodium Chloride 500 ML ONE (02:45)
[2017-04-01 04:31] LABS: Hemoglobin 12.4 g/dL (12.9-16.9); Mean Corpuscular HGB Conc 31.8 g/dL (31.6-35.5); Mean Corpuscular Hemoglobin 28.5 pg (28.0-33.3); Mean Corpuscular Volume 89.7 fL (83.0-100.0); Mean Platelet Volume 10.6 fL (9.4-12.4); Platelet Count 201 K/mcL (140-400); Red Blood Count 4.35 M/mcL (4.19-5.50); Red Cell Distribution Width 14.3 % (11.5-14.5)
[2017-04-01 04:39] LABS: Potassium 3.4 mEq/L (3.5-4.5)
[2017-04-01] MEDS ORDERED: Perflutren Lipid Microsphere 1.3 ML in 0.9 % Sodium Chloride 8.7 ML IVP ONE (07:12)
[2017-04-01 08:42] LABS: BUN/Creatinine Ratio 17 (6-26); Blood Urea Nitrogen 23 mg/dL (8-26); Calcium 7.7 mg/dL (8.6-10.8); Carbon Dioxide 11 mEq/L (19-29); Chloride 112 mEq/L (98-109); Glucose 193 mg/dL (70-99); Magnesium 1.6 mg/dL (1.6-2.6); Osmolality,Calculated 287 (280-300); Sodium 134 mEq/L (136-145); eGFR For African Americans > 60 (> 60); eGFR For Non-African Americans 54 (> 60)
[2017-04-01 08:43] LABS: Potassium 4.7 mEq/L (3.5-4.5)
--- NOTE | 2017-04-01 08:44 | ECHO - Doppler Report ---
Limited Echo with Imaging Enhancement Agent Name: Oj Mccain Date of Study: 04/01/2017 Date: 1945 Ht: 68.0 in Medical Record#: [id number] Age: 71 Wt: 216.0 lb Gender: Male BSA: 2.11 Order #: [id number] Location: [facility] Room #: 2A14 Reading Physician: Warner Martinez DO, FACC, FASE Form Presser: Shad Montiel RN Ordering Physician: Jer Beckman MD Primary Physician: Guillermo Garibay MD Indications: Congestive heart failure Impressions: LVEF 60%. Normal LV chamber size and wall thickness. Despite the use of Definity, not all LV segments were well visualized, but overall LV function is normal. This was a limited study. Findings: Study Quality * Technically sub-optimal due to poor echocardiographic windows. ECG Findings * Normal sinus rhythm. Left Ventricle * LVEF 60%. * Normal LV chamber size and wall thickness. Despite the use of Definity, not all LV segments were well visualized, but overall LV function is normal. Right Ventricle * Normal right ventricular structure and function. Left Atrium * Mildly dilated left atrium. Right Atrium * Normal right atrial size. Pericardium * The pericardium appears normal. Aorta * Normally sized aortic root. IVC * The IVC is not well evaluated. History Hypertension Diabetes Hypercholesteremia Years 50 Packs 2 Family History of CAD 08/15/2016 a Previous Echo was performed. Contrast: Definity 1.3 ml in 8.7 ml of saline 3 ml. Measurements: BP: 125/ 76 2D Normal Values RVIDd: 2.70 cm <2.7 cm IVSd: 1.10 cm 0.6 - 1.0 cm LVIDd: 2.90 cm 3.7 - 5.6 cm LVPWd: 1.10 cm 0.6 - 1.1 cm LVIDs: 2.10 cm 1.5 - 3.6 cm LA: 3.40 cm 2.0 - 4.0cm %FS: 27.60 cm >25 % LA volume: Updated by Warner Martinez DO, FACC, FASE, FASNC on 04/01/2017 8:38:29 AM electronically signed on 04/01/2017 8:39:00 AM with status of Final [employer] [place]: 1=Normal, 2=Hypokinesis, 3=Akinesis, 4=Dyskinesis, 5=Aneurysmal, 6=Hyperkinetic, X=Not Visualized (Blank)=Missing
[2017-04-01] MEDS: *HR* Glimepiride 2 MG TABLET PO SCH (08:52)
[2017-04-01] MEDS: Aspirin 81 MG TAB.CHEW PO SCH (08:52)
[2017-04-01] MEDS: Folic Acid 1 MG TABLET PO SCH (08:52)
[2017-04-01] MEDS: Insulin LISPRO 300 UNITS/3 ML VIAL SQ SCH ×3 (08:52→16:34)
--- NOTE | 2017-04-01 12:57 | Internal Med Progress Note ---
Date of Encounter: 04/01/17 Time of Encounter: 12:54 - Assessment and plan (1) Atrial fibrillation Current Visit: No Status: Acute Assessment and plan: A fib with RVR likely exarbated by UTI may discontinue cardizem drip when UTI is controlled Continue Cardizem and metoprolol Qualifiers: Atrial fibrillation type: paroxysmal Qualified Code(s): I48.0 - Paroxysmal atrial fibrillation (2) UTI (urinary tract infection) Current Visit: No Status: Acute Assessment and plan: Recent cultures growing gram-positive cocci, I called personally the laboratory and they mentioned it could be possibly enterococcus Last culture back in September was positive for enterococcus which was sensitive to ampicillin Discontinue Rocephin and start Unasyn Await final culture Start IV fluids, discontinue Lasix Qualifiers: Urinary tract infection type: acute cystitis Hematuria presence: with hematuria Qualified Code(s): N30.01 - Acute cystitis with hematuria (3) Weakness Current Visit: Yes Status: Acute Assessment and plan: Severe weakness likely related to urinary tract infection (4) CHF (congestive heart failure) Current Visit: No Status: Chronic Assessment and plan: hold lasix, continue IVF history of diastolic CHF no exacerbation Qualifiers: Congestive heart failure type: diastolic Congestive heart failure chronicity: acute on chronic Qualified Code(s): I50.33 - Acute on chronic diastolic (congestive) heart failure (5) Acute dyspnea Current Visit: Yes Status: Acute Assessment and plan: VQ scan was performed and showed very low probability of pulmonary emboli, Lovenox was discontinued Consider pulmonary consult if not improving (6) S/P colon resection Current Visit: No Status: Acute (7) Hypertension Current Visit: No Status: Chronic Qualifiers: Hypertension type: essential hypertension Qualified Code(s): I10 - Essential (primary) hypertension (8) DM type 2 (diabetes mellitus, type 2) Current Visit: No Status: Chronic Assessment and plan: ISS Qualifiers: Diabetes mellitus complication status: without complication Diabetes mellitus chcf insulin use: without chcf use Qualified Code(s): E11.9 - Type 2 diabetes mellitus without complications (9) Small bowel obstruction Current Visit: No Status: Acute Assessment and plan: has colostomy bag, Hx of colon cancer - Subjective Interval history: The patient was getting ready to be discharged yesterday but felt extremely weak and was not able to continue walking during his qualification for oxygen, denies any chest pain, no abdominal pain, no dysuria, no fevers or chills, has complained of chronic dysuria for the past 2 years as he has history of chronic prostatitis - Constitutional Vitals: Temp Pulse Resp BP Pulse Ox 97.4 F L 75 17 88/63 98 04/01/17 11:09 04/01/17 11:09 04/01/17 11:09 04/01/17 11:09 04/01/17 11:09 General appearance: Present: A&O X 3 - Head Head exam: Present: atraumatic, normocephalic - Eye Eye exam: Present: PERRL, conjuntiva pink, sclera anicteric Pupils: Present: PERRL - Neck Neck exam general surgery: Present: supple, trachea midline. Absent: lymphadenopathy - Respiratory Respiratory exam: Present: CTAB. Absent: accessory muscle use, rales, rhonchi, wheezes - Cardiovascular Cardiovascular exam: Present: RRR, +S1, +S2. Absent: diastolic murmur, gallop, rubs, systolic murmur - GI/Abdominal GI/Abdominal exam: Present: distended (colostomy bag in place), normal bowel sounds, soft, no peritoneal signs. Absent: tenderness - Extremities Exam Extremities exam: Present: warm, radial pulses palpable and symetrical. Absent : calf tenderness, cyanotic, pedal edema - Neurological Exam Neurological exam: Present: CN II-XII intact, oriented X3, no focal deficits. Absent: pronater drift, facial droop, speech deficit Additional comments: right hand is athrophied - Skin Skin exam: Present: dry, intact Internal Medicine: Result - Labs CBC & Chem 7: 04/01/17 03:14 04/01/17 08:26 Labs: Short CBC 04/01/17 Range/Units 03:14 WBC 9.1 (4.3-11.1) K/mcL Hgb 12.4 L (12.9-16.9) g/dL Hct 39.0 (37.5-50.1) % Plt Count 201 (140-400) K/mcL BMP 03/31/17 04/01/17 04/01/17 23:52 03:14 08:26 Sodium 135 L 135 L 134 L Potassium 3.7 3.4 L 4.7 H D Chloride 105 107 112 H Carbon Dioxide 16 L 16 L 11 L BUN 26 26 23 Creatinine 1.53 H 1.44 H 1.32 H Glucose 91 135 H 193 H Calcium 8.6 8.0 L 7.7 L - ABG Interpretation ABG results: PT/INR, D-dimer PT 12.6 Seconds (9.4-12.1) H 03/30/17 14:22 D-Dimer 689 ng/mLFEU (0-500) H 03/30/17 14:22 Consult Discharge Plan - Plan Referrals: Guillermo Garibay MD [Primary Care Provider] - 04/10/17 3:15 pm (Please follow up as schedule..)
[2017-04-01] MEDS: Ampicillin/Sulbactam 1,500 MG in 0.9 % Sodium Chloride Mini Bag 100 ML IVPB SCH ×3 (13:54→23:39)
[2017-04-01] MEDS: 0.9 % Sodium Chloride 1,000 ML IVC SCH ×2 (13:54→19:04)
--- NOTE | 2017-04-01 15:42 | Electrocardiograph Report ---
[place] [id number] Test Date: 2017-03-31 Pat Name: Oj Mccain Department: 112 Room: 2A14 Gender: M [employer]: : 1945 Requested By: Jer Beckman Order Number: [id number] Reading MD: Rachel Bey Measurements Intervals [place] Rate: 137 P: [place]: 0 QRS: 54 QRSD: 92 T: 229 QT: 285 QTc: 365 Interpretive Statements ATRIAL FIBRILLATION WITH RAPID VENTRICULAR RESPONSE DIFFUSE ST ABNORMALITIES Electronically Signed On 04-01-2017 15:40:43 EDT by Rachel Bey
[2017-04-02] MEDS: Ampicillin/Sulbactam 1,500 MG in 0.9 % Sodium Chloride Mini Bag 100 ML IVPB SCH ×4 (05:19→23:04)
[2017-04-02] MEDS: 0.9 % Sodium Chloride 1,000 ML IVC SCH ×2 (05:20→17:47)
[2017-04-02 05:21] LABS: Hematocrit 34.6 % (37.5-50.1); Hemoglobin 11.1 g/dL (12.9-16.9); Mean Corpuscular HGB Conc 32.1 g/dL (31.6-35.5); Mean Corpuscular Hemoglobin 29.2 pg (28.0-33.3); Mean Corpuscular Volume 91.1 fL (83.0-100.0); Mean Platelet Volume 10.4 fL (9.4-12.4); Platelet Count 176 K/mcL (140-400); Red Cell Distribution Width 14.8 % (11.5-14.5)
[2017-04-02 05:35] LABS: BUN/Creatinine Ratio 15 (6-26); Blood Urea Nitrogen 15 mg/dL (8-26); Calcium 7.6 mg/dL (8.6-10.8); Carbon Dioxide 15 mEq/L (19-29); Chloride 114 mEq/L (98-109); Glucose 104 mg/dL (70-99); Osmolality,Calculated 285 (280-300); Potassium 3.8 mEq/L (3.5-4.5); Sodium 137 mEq/L (136-145); eGFR For African Americans > 60 (> 60); eGFR For Non-African Americans > 60 (> 60)
[2017-04-02] MEDS: Insulin LISPRO 300 UNITS/3 ML VIAL SQ SCH ×4 (07:52→20:53)
[2017-04-02] MEDS: Aspirin 81 MG TAB.CHEW PO SCH (07:53)
[2017-04-02] MEDS: *HR* Glimepiride 2 MG TABLET PO SCH (07:53)
[2017-04-02] MEDS: Folic Acid 1 MG TABLET PO SCH (07:53)
[2017-04-02] MEDS ORDERED: Magnesium Sulfate 1 GM in D5% in Water 100 ML IVPB ONE (08:18)
--- NOTE | 2017-04-02 09:17 | Internal Med Progress Note ---
Date of Encounter: 04/02/17 Time of Encounter: 09:14 - Assessment and plan (1) Abdominal pain Current Visit: No Status: Acute Assessment and plan: SBO in setting of a patient with history of colon cancer and s/p colostomy (25 years ago), recent sbo and recent colonoscopy. had abd pain and distention overnight, currently npo, xray consistent with sbo, ng tube ordered and a consultation with surgery has been called for further recommendations. Qualifiers: Abdominal location: right upper quadrant Qualified Code(s): R10.11 - Right upper quadrant pain (2) Atrial fibrillation Current Visit: No Status: Acute Assessment and plan: A fib with RVR likely exarbated by UTI, rate controled for now, will continue monitoring Qualifiers: Atrial fibrillation type: paroxysmal Qualified Code(s): I48.0 - Paroxysmal atrial fibrillation (3) DVT prophylaxis Current Visit: No Status: Acute (4) Small bowel obstruction Current Visit: No Status: Acute Assessment and plan: has colostomy bag, Hx of colon cancer, npo for now and surgicl consult. (5) UTI (urinary tract infection) Current Visit: No Status: Acute Assessment and plan: Recent cultures growing gram-positive cocci. Last culture back in September was positive for enterococcus which was sensitive to ampicillin Continue with Unasyn Await final culture Qualifiers: Urinary tract infection type: acute cystitis Hematuria presence: with hematuria Qualified Code(s): N30.01 - Acute cystitis with hematuria (6) DM type 2 (diabetes mellitus, type 2) Current Visit: No Status: Chronic Assessment and plan: ISS D/A amaryl. Qualifiers: Diabetes mellitus complication status: without complication Diabetes mellitus intermediate manager insulin use: without nursing home use Qualified Code(s): E11.9 - Type 2 diabetes mellitus without complications (7) Hypertension Current Visit: No Status: Chronic Qualifiers: Hypertension type: essential hypertension Qualified Code(s): I10 - Essential (primary) hypertension - Subjective Interval history: 1st encounter with the patient, he had abd pain overnight had an abd x ray and was found to have sbo, was placed npo earlier today by date night caregiver team. still complaining of abd pain, no fever, no nausea or vomiting, had a similar episode a few weeks ago. - Constitutional Vitals: Temp Pulse Resp BP Pulse Ox 97.4 F L 79 16 121/75 99 04/02/17 07:03 04/02/17 07:03 04/02/17 07:03 04/02/17 07:03 04/02/17 07:03 General appearance: Present: cooperative, A&O X 3, pleasant Exam: pleasant abd distented, bowel sounds diminished. clostomy bag noted. - Head Head exam: Present: atraumatic, normocephalic - Eye Eye exam: Present: PERRL, conjuntiva pink, sclera anicteric Pupils: Present: PERRL - Neck Neck exam general surgery: Present: supple, trachea midline. Absent: lymphadenopathy - Respiratory Respiratory exam: Present: CTAB. Absent: accessory muscle use, rales, rhonchi, wheezes - Cardiovascular Cardiovascular exam: Present: RRR, +S1, +S2. Absent: diastolic murmur, gallop, rubs, systolic murmur - GI/Abdominal GI/Abdominal exam: Present: normal bowel sounds, soft, no peritoneal signs. Absent: distended, tenderness - Extremities Exam Extremities exam: Present: warm, radial pulses palpable and symetrical. Absent : calf tenderness, cyanotic, pedal edema - Neurological Exam Neurological exam: Present: CN II-XII intact, oriented X3, no focal deficits. Absent: pronater drift, facial droop, speech deficit - Skin Skin exam: Present: dry, intact Internal Medicine: Result - Labs CBC & Chem 7: 04/02/17 04:06 04/02/17 04:06 Labs: Short CBC 04/02/17 Range/Units 04:06 WBC 7.4 (4.3-11.1) K/mcL Hgb 11.1 L (12.9-16.9) g/dL Hct 34.6 L (37.5-50.1) % Plt Count 176 (140-400) K/mcL BMP 04/02/17 04:06 Sodium 137 Potassium 3.8 Chloride 114 H Carbon Dioxide 15 L BUN 15 Creatinine 1.03 Glucose 104 H Calcium 7.6 L - ABG Interpretation ABG results: PT/INR, D-dimer PT 12.6 Seconds (9.4-12.1) H 03/30/17 14:22 D-Dimer 689 ng/mLFEU (0-500) H 03/30/17 14:22 - Impressions Impressions KUB X-Ray 04/02/17 04:20 IMPRESSION: Findings most likely represent a small bowel obstruction. D/ / Harish Nieves MD / Harish Nieves MD Interpreting Provider: Harish Nieves MD Consult Discharge Plan - Plan Referrals: Guillermo Garibay MD [Primary Care Provider] - 04/10/17 3:15 pm (Please follow up as schedule..)
--- NOTE | 2017-04-02 09:51 | General Surgery Consult Note ---
<Gem Salcedo - Last Filed: 04/02/17 16:30> Date of Encounter: 04/02/17 Time of Encounter: 09:45 Assessment and Plan (1) Small bowel obstruction Current Visit: Yes Status: Acute Recent small bowel obstruction back in January 2017 and September 2016. Patient developed abdominal pain with distention overnight. KUB reveals mildly dilated small bowel with very little colonic gas, most likely representing a small bowel obstruction WBC 7.4, patient is afebrile, VSS Recommend conservative management at this time Plan: -Keep NPO, bowel rest -NG to to intermittent suction -Continue IVF@100/hr -Continue pain medication and supportive care -Continue serial abdominal exams -Repeat AM labs (2) S/P colon resection Current Visit: No Status: Chronic (3) History of colon cancer Current Visit: No Status: Resolved (4) S/P colostomy Current Visit: Yes Status: Chronic (5) Atrial fibrillation Current Visit: Yes Status: Chronic Currently rate controlled and in NSR Management per medicine team Qualifiers: Atrial fibrillation type: paroxysmal Qualified Code(s): I48.0 - Paroxysmal atrial fibrillation (6) DM type 2 (diabetes mellitus, type 2) Current Visit: Yes Status: Chronic Blood glucose ranging from 100's-190's Management per medicine team Qualifiers: Diabetes mellitus complication status: without complication 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 Mccain is a 71-year-old male with a past medical history of COPD, diabetes, hypertension, A. fib, and history of colon cancer with colostomy 25 years ago. He states he had a colostomy revision about a year ago. The colostomy was moved from the [facility] to the [facility] at that time. He recently had a colonoscopy on 2016 at which time a 5 mm polyp at 10 cm proximal to the stoma was removed by Dr. Miller. 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 The patient was in the hospital for a small bowel obstruction discharged from this hospital on 01/30/2017, he was also in the hospital with SBO in September,. He is being treated in the hospital for A. fib RVR and a UTI. Overnight the patient developed increasing abdominal pain and distention. An x-ray was performed and was consistent with a small bowel obstruction. The hospitalist has made the patient NPO, NG tube palced and consulted surgery for subsequent management. The patient states that he developed pain around 0400, and it woke him up from his sleep. He states that it is located in the LLQ, is a stabbing pain that does not radiate and is rated at a 9\10. He states that it does come and go. It is relieved with pain medicine. He had associated nausea that was relieved with Zofran. He denies vomiting. He does state that there is still a small amount of stool in his colostomy bag but that it is less than normal. He also admits to small amounts of flatus. He is afebrile. Past Med Surg Social Fam HX - Past Medical History Medical history: cancer, diabetes, GERD, hyperlipidemia, hypertension, kidney stones, other Psychiatric history: no psych history - Past Surgical History Surgical History: colectomy, colostomy, other - Social History Smoking Status: Former smoker Smokeless Tobacco Status: No Alcohol use: none Drug use: none - Family History Father Adopted: No Living Status: Hx Family Cardiac Disorders: Yes Hx Family Respiratory Disorders: No Hx Family Cancer: No Hx Family GI Disorders: No Hx Family Endocrine Disorder: No Hx Family Neuromuscular Disorders: No Hx Family Neurologic Disorders: No Hx Family HEENT Disorders: No Hx Family Autoimmune Disorders: No Medications and Allergies Atorvastatin [Lipitor] 40 mg PO DAILY 09/22/15 [History] Ferrous Sulfate 325 mg PO BID 09/22/15 [History] Furosemide [Lasix] 40 mg PO DAILY 09/22/15 [History] Glimepiride [Amaryl] 4 mg PO DAILY 09/22/15 [History] Potassium Chloride 40 meq PO DAILY 09/22/15 [History] Ranitidine HCl [Zantac] 150 mg PO BID 09/22/15 [History] Docusate [Colace] 100 mg PO BID #60 capsule 09/30/15 [Rx] Folic Acid 1 mg PO DAILY #30 tablet 11/01/15 [Rx] Metoprolol [Lopressor] 25 mg PO DAILY 05/14/16 [History] SitaGLIPtin [Januvia] 100 mg PO DAILY 05/14/16 [History] Albuterol Sulfate [Proair Hfa] 2 puff IH Q4H PRN 06/07/16 [History] Aspirin 81 mg PO DAILY 08/13/16 [History] Diltiazem HCl [Diltiazem 24Hr Cd] 120 mg PO DAILY 03/19/17 [History] Allergies No Known Allergies Allergy (Verified 03/19/17 10:52) Review of Systems All systems PM: A 10-system review of systems was performed and is negative for pertinent findings except as documented above in the HPI. - Constitutional no chills, no fever(s), no headache(s) - EENT Nose, mouth and throat: no dizziness, no headache(s), no sore throat - Cardiovascular edema, no chest pain, no diaphoresis, no dyspnea, no palpitations - Respiratory no dyspnea - Gastrointestinal abdominal pain, bloating, nausea, no vomiting - Genitourinary no dysuria - Musculoskeletal no arthralgias, no muscle cramps - Integumentary no erythema, no rash - Neurological no dizziness, no headache(s), no weakness - Psychiatric no anxiety, no depression - Endocrine no excessive sweating - Hematologic/Lymphatic no easy bruising General Surgery Exam Initial Vital Signs Temp Pulse Resp BP Pulse Ox 97.4 F L 80 26 145/60 100 03/30/17 10:46 03/30/17 10:46 03/30/17 10:46 03/30/17 10:46 03/30/17 10:46 - General physical appearance well developed, well nourished, no distress, moderate pain, obese - Eyes PERRL, normal ocular movement - ENT atraumatic, normocephalic - Neck no masses, no bruits, trachea midline, no lymphadectomy, no venous distension - Respiratory normal expansion, normal respiratory effort, clear to auscultation - Cardiovascular Cardiovascular exam: Present: RRR, distant heart sounds, no murmurs/rubs/gallops - Abdomen Abdomen general surgery: Present: bowel sounds present, distended, tender, surgical scars (midline, LLQ) Abdominal Tenderness: Present: diffusely - Integumentary Integumentary general surgery: Present: warm and dry, no abnormal pigmentation - Neurologic Present: CN 2-12 grossly intact, normal coordination, normal sensation - Psychiatric Psychiatric general surgery: Present: appropriate, oriented to person, oriented to place, oriented to time, speech is normal, memory intact - Additional Findings Colostomy located in the right mid abdomen with light brown liquid stool present in the bag. Ostomy site is pink. Exam Initial Vital Signs Temp Pulse Resp BP Pulse Ox 97.4 F L 80 26 145/60 100 03/30/17 10:46 03/30/17 10:46 03/30/17 10:46 03/30/17 10:46 03/30/17 10:46 Results - Labs 04/02/17 04:06 04/02/17 04:06 Abnormal lab results RBC 3.80 M/mcL (4.19-5.50) L 04/02/17 04:06 Hgb 11.1 g/dL (12.9-16.9) L 04/02/17 04:06 Hct 34.6 % (37.5-50.1) L 04/02/17 04:06 RDW 14.8 % (11.5-14.5) H 04/02/17 04:06 Neutrophils # 9.9 K/mcL (1.6-8.9) H 03/30/17 12:05 PT 12.6 Seconds (9.4-12.1) H 03/30/17 14:22 APTT 45.2 Seconds (26.0-36.0) H 03/30/17 14:22 D-Dimer 689 ng/mLFEU (0-500) H 03/30/17 14:22 Chloride 114 mEq/L (98-109) H 04/02/17 04:06 Carbon Dioxide 15 mEq/L (19-29) L 04/02/17 04:06 Glucose 104 mg/dL (70-99) H 04/02/17 04:06 POC Glucose 170 (58-89) H 03/31/17 20:44 Calcium 7.6 mg/dL (8.6-10.8) L 04/02/17 04:06 Ur Specimen Adequacy See below A 03/30/17 14:35 Urine Clarity Cloudy (Clear) A 03/30/17 14:35 Urine pH 8.5 pH Units (5.0-8.0) H 03/30/17 14:35 Urine Protein >=300 mg/dL (Neg-Trace) H 03/30/17 14:35 Urine Blood Large (Negative) H 03/30/17 14:35 Ur Leukocyte Esterase Small (Negative) H 03/30/17 14:35 Urine Bacteria Many per hpf (None-Few) H 03/30/17 14:35 Ur Culture Indicated? YES (NO) A 03/30/17 14:35 Diabetes panel 04/02/17 Range/Units 04:06 Sodium 137 (136-145) mEq/L Potassium 3.8 (3.5-4.5) mEq/L Chloride 114 H (98-109) mEq/L Carbon Dioxide 15 L (19-29) mEq/L BUN 15 (8-26) mg/dL Creatinine 1.03 (0.72-1.25) mg/dL Glucose 104 H (70-99) mg/dL Calcium 7.6 L (8.6-10.8) mg/dL Calcium panel 04/02/17 Range/Units 04:06 Calcium 7.6 L (8.6-10.8) mg/dL Pituitary panel 04/02/17 Range/Units 04:06 Sodium 137 (136-145) mEq/L Potassium 3.8 (3.5-4.5) mEq/L Chloride 114 H (98-109) mEq/L Carbon Dioxide 15 L (19-29) mEq/L BUN 15 (8-26) mg/dL Creatinine 1.03 (0.72-1.25) mg/dL Glucose 104 H (70-99) mg/dL Calcium 7.6 L (8.6-10.8) mg/dL Adrenal panel 04/02/17 Range/Units 04:06 Sodium 137 (136-145) mEq/L Potassium 3.8 (3.5-4.5) mEq/L Chloride 114 H (98-109) mEq/L Carbon Dioxide 15 L (19-29) mEq/L BUN 15 (8-26) mg/dL Creatinine 1.03 (0.72-1.25) mg/dL Glucose 104 H (70-99) mg/dL Calcium 7.6 L (8.6-10.8) mg/dL All other labs normal. - Imaging Abdominal x-ray: report reviewed, image reviewed Additional studies: KUB X-Ray 04/02/17 04:20 IMPRESSION: Findings most likely represent a small bowel obstruction. D/ / Harish Nieves MD / Harish Nieves MD Interpreting Provider: Harish Nieves MD Consult Discharge Plan - Plan Referrals: Guillermo Garibay MD [Primary Care Provider] - 04/10/17 3:15 pm (Please follow up as schedule..) <Samaria Yu - Last Filed: 04/02/17 19:28> Date of Encounter: 04/02/17 Time of Encounter: 19:19 Assessment and Plan (1) Partial small bowel obstruction Current Visit: Yes Status: Acute discussed imaging with patient, he feels better with ngt decompression will continue conservative management currently ivfh, prn pain control ngt decompression ok ice chips, popcicles gi/dvt prophylaxis, ambulate, OOB to chair serial abdominal exams History of Present Illness History of present illness: Patient is 71 yo male with a history of colon cancer, several admission for small bowel obstructions -none requiring surgery per the patient. He started having SOB about a day and half ago and then developed mid abdominal pain which he describes as sharp and intermittent as well as crampy. He was still having stool at this colostomy and still passing flatus but less than normal. He had nausea but no emesis. Denies fevers, chills or night sweats. He presented to the ER with pain and nausea and abdominal films done showing sbo. He had an ngt tube placed and states he feels better and less distended and the pain is less since ngt placement. He is still having episodic crampy abdominal pain. Past Med Surg Social Fam HX - Past Medical History Source: patient, old records reviewed Medical history: cancer (colon 2014) - Past Surgical History Surgical History: cholecystectomy (open), colectomy (transverse and descending colectomy with RUQ colostomy, colonoscopy with polypectomy), colostomy, other ( bladder stone removed) Review of Systems All systems PM: A 10-system review of systems was performed and is negative for pertinent findings except as documented above in the HPI. General Surgery Exam Initial Vital Signs Temp Pulse Resp BP Pulse Ox 97.4 F L 80 26 145/60 100 03/30/17 10:46 03/30/17 10:46 03/30/17 10:46 03/30/17 10:46 03/30/17 10:46 - General physical appearance well nourished, no distress - Eyes PERRL, normal ocular movement - ENT dry mucosa, atraumatic, normocephalic - Neck trachea midline - Abdomen Abdomen general surgery: Present: soft, distended, tender (moderately diffusely , no rebond or guarding). Absent: guarding, rebound - Integumentary Integumentary general surgery: Present: warm and dry, no abnormal pigmentation - Neurologic Present: CN 2-12 grossly intact - Musculoskeletal Present: normal posture - Psychiatric Psychiatric general surgery: Present: A&Ox3, speech is normal Exam Initial Vital Signs Temp Pulse Resp BP Pulse Ox 97.4 F L 80 26 145/60 100 03/30/17 10:46 03/30/17 10:46 03/30/17 10:46 03/30/17 10:46 03/30/17 10:46 Results - Labs 04/02/17 04:06 04/02/17 04:06 Short CBC 04/02/17 Range/Units 04:06 WBC 7.4 (4.3-11.1) K/mcL Hgb 11.1 L (12.9-16.9) g/dL Hct 34.6 L (37.5-50.1) % Plt Count 176 (140-400) K/mcL BMP 04/02/17 Range/Units 04:06 Sodium 137 (136-145) mEq/L Potassium 3.8 (3.5-4.5) mEq/L Chloride 114 H (98-109) mEq/L Carbon Dioxide 15 L (19-29) mEq/L BUN 15 (8-26) mg/dL Creatinine 1.03 (0.72-1.25) mg/dL Glucose 104 H (70-99) mg/dL Calcium 7.6 L (8.6-10.8) mg/dL Vital Signs Temp Pulse Resp BP Pulse Ox 04/02/17 19:08 98.4 F 85 17 116/70 97 04/02/17 14:58 97.5 F L 75 16 118/79 97 04/02/17 10:56 97.6 F 75 16 112/73 97 04/02/17 07:03 97.4 F L 79 16 121/75 99 04/02/17 03:05 97.6 F 75 16 113/77 98 04/01/17 23:09 97.5 F L 70 17 96/62 98 04/01/17 20:15 99 Intake and Output 04/02/17 04/02/17 04/02/17 07:59 15:59 23:59 Intake Total 1200 / 1200 1100 / 1100 120 / 120 Output Total 75 / 75 Balance 1200 / 1200 1025 / 1025 120 / 120 Intake: IV Fluids 1200 / 1200 1100 / 1100 0.9 % Sodium Chloride 1, 1000 / 1000 1000 / 1000 000 ML @ 100 mls/hr IVC . Q10H [facility] Rx#:[id number] Unasyn 1,500 mg In 0.9 % 200 / 200 100 / 100 Sodium Chloride (Mini-Bag +) 100 ML @ 200 mls/hr IVPB Q6HR [facility] Rx#: [id number] Oral 120 / 120 Output: Stool 75 / 75 Other: Stool Size Small Stool Consistency liquid Stool Characteristics Normal for Patient Stool Color Brown # Urine Diapers 1 Weight 98.7 kg Blood Glucose* 132 134 96 Patient Weight 04/02/17 23:59 Weight 98.7 kg - Imaging Abdominal x-ray: report reviewed, image reviewed - Attending Attestation I examined this patient and my medical decision-making was reviewed with the SENIOR QA ANALYST/PA/Advanced Practice Nurse/Resident Physician. I agree with the documented findings, disposition and treatment plan as described except to the extent set forth below.
[2017-04-02] MEDS: Pantoprazole 40 MG VIAL IVP SCH (09:56)
[2017-04-02] MEDS ORDERED: *HR* Metoprolol 5 MG/5 ML VIAL IVP PRN (11:54)
[2017-04-02] MEDS ORDERED: Chloraseptic Spray 177 ML BOTTLE MM PRN (13:26)
[2017-04-02] MEDS ORDERED: Albuterol 2.5 MG/3 ML NEBULIZER IH PRN (14:41)
[2017-04-02] MEDS: *HR* Heparin 5,000 UNIT/ML VIAL SQ SCH (17:46)
[2017-04-03] MEDS: 0.9 % Sodium Chloride 1,000 ML IVC SCH ×3 (04:00→23:37)
[2017-04-03 04:46] LABS: Basophils % 0.7 %; Eosinophils # 0.1 K/mcL (0.0-0.6); Eosinophils % 1.3 %; Hematocrit 35.7 % (37.5-50.1); Hemoglobin 11.4 g/dL (12.9-16.9); Immature Granulocytes % 0.4 % (0-4); Lymphocytes # 0.6 K/mcL (0.6-4.6); Lymphocytes % 10.2 %; Mean Corpuscular HGB Conc 31.9 g/dL (31.6-35.5); Mean Corpuscular Hemoglobin 29.5 pg (28.0-33.3); Mean Corpuscular Volume 92.5 fL (83.0-100.0); Mean Platelet Volume 10.5 fL (9.4-12.4); Monocytes # 0.5 K/mcL (0.0-1.3); Neutrophils # 4.2 K/mcL (1.6-8.9); Platelet Count 162 K/mcL (140-400); Red Blood Count 3.86 M/mcL (4.19-5.50); Red Cell Distribution Width 15.1 % (11.5-14.5); Segmented Neutrophils % 77.4 %
[2017-04-03 05:02] LABS: BUN/Creatinine Ratio 8 (6-26); Blood Urea Nitrogen 7 mg/dL (8-26); Calcium 7.5 mg/dL (8.6-10.8); Carbon Dioxide 19 mEq/L (19-29); Chloride 118 mEq/L (98-109); Glucose 103 mg/dL (70-99); Magnesium 1.5 mg/dL (1.6-2.6); Osmolality,Calculated 294 (280-300); Potassium 3.6 mEq/L (3.5-4.5); Sodium 143 mEq/L (136-145); eGFR For African Americans > 60 (> 60); eGFR For Non-African Americans > 60 (> 60)
[2017-04-03] MEDS: Ampicillin/Sulbactam 1,500 MG in 0.9 % Sodium Chloride Mini Bag 100 ML IVPB SCH (05:29)
[2017-04-03] MEDS: *HR* Heparin 5,000 UNIT/ML VIAL SQ SCH ×2 (05:30→17:14)
--- NOTE | 2017-04-03 07:31 | General Surgery Progress Note ---
Date of Encounter: 04/03/17 Time of Encounter: 07:29 - Assessment and Plan (1) Small bowel obstruction Current Visit: Yes Status: Acute Recent small bowel obstruction back in January 2017 and September 2016. KUB reveals mildly dilated small bowel with very little colonic gas, most likely representing a small bowel obstruction WBC 5.4, patient is afebrile, VSS NG remains in place, non-bilious output noted in suction canister NG output 04/02: 270, 625 charted so far today Abdomen is mildly distended, but improved from yesterday, BS present, mild tenderness LLQ with palpation Recommend conservative management at this time Plan: -Keep NPO, may have ice chips and popscilces -NG to marrufo bag, if output <50 this afternoon we will reassess and pull NG -Continue IVF@100/hr -Continue pain medication and supportive care -Continue serial abdominal exams -Repeat AM labs (2) S/P colon resection Current Visit: No Status: Chronic (3) History of colon cancer Current Visit: No Status: Resolved (4) S/P colostomy Current Visit: Yes Status: Chronic (5) Atrial fibrillation Current Visit: Yes Status: Chronic Currently rate controlled and in NSR Management per medicine team Qualifiers: Atrial fibrillation type: paroxysmal Qualified Code(s): I48.0 - Paroxysmal atrial fibrillation (6) DM type 2 (diabetes mellitus, type 2) Current Visit: Yes Status: Chronic Blood glucose low 100's Management per medicine team Qualifiers: Diabetes mellitus complication status: without complication 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 NG tube remains in place with nonbilious output noted in the suction canister. Patient has been tolerating ice chips, popsicles. He states there is no new output in his colostomy bag. He states that his abdominal pain has decreased but is still present. Objective Vital Signs - Last 8 Hours Temp Pulse Resp BP Pulse Ox 04/03/17 03:14 98.4 F 89 16 130/81 97 04/03/17 00:25 98.1 F 91 17 142/80 96 Intake and Output 04/02/17 04/02/17 04/03/17 15:59 23:59 07:59 Intake Total 1100 / 1100 220 / 220 1340 / 1340 Output Total 75 / 75 270 / 270 625 / 625 Balance 1025 / 1025 -50 / -50 715 / 715 Intake: IV Fluids 1100 / 1100 100 / 100 1100 / 1100 0.9 % Sodium Chloride 1, 1000 / 1000 1000 / 1000 000 ML @ 100 mls/hr IVC . Q10H [facility] Rx#:[id number] Unasyn 1,500 mg In 0.9 % 100 / 100 100 / 100 100 / 100 Sodium Chloride (Mini-Bag +) 100 ML @ 200 mls/hr IVPB Q6HR [facility] Rx#: [id number] Oral 120 / 120 240 / 240 Output: Stool 75 / 75 Gastric Tube Lavage 270 / 270 625 / 625 Amount Right Nare 270 / 270 625 / 625 Other: Stool Size Small Stool Consistency liquid Stool Characteristics Normal for Patient Stool Color Brown # Urine Diapers 2 1 Blood Glucose* 134 99 - General physical appearance well developed, well nourished, no distress, no pain, obese - Eyes PERRL, normal ocular movement - ENT atraumatic, normocephalic - Neck Neck exam: trachea midline - Respiratory normal expansion, clear to percussion, clear to auscultation - Cardiovascular Cardiovascular exam: Present: RRR, no murmurs/rubs/gallops - Abdomen Abdomen: Present: bowel sounds present, soft, distended, tender, surgical scars Abdominal Tenderness: LLQ Additional Comments: Colostomy located in the right mid abdomen with light brown liquid stool present in the bag. Ostomy site is pink. NG tube in place, non-bilious output - Integumentary no rash, no growths, no abnormal pigmentation - Neurologic normal coordination, normal sensation - Psychiatric oriented to time, oriented to person, oriented to place, speech is normal, memory intact - Labs 04/03/17 04:10 04/03/17 04:10 Diabetes panel 04/03/17 Range/Units 04:10 Sodium 143 (136-145) mEq/L Potassium 3.6 (3.5-4.5) mEq/L Chloride 118 H (98-109) mEq/L Carbon Dioxide 19 (19-29) mEq/L BUN 7 L (8-26) mg/dL Creatinine 0.83 (0.72-1.25) mg/dL Glucose 103 H (70-99) mg/dL Calcium 7.5 L (8.6-10.8) mg/dL Calcium panel 04/03/17 Range/Units 04:10 Calcium 7.5 L (8.6-10.8) mg/dL Pituitary panel 04/03/17 Range/Units 04:10 Sodium 143 (136-145) mEq/L Potassium 3.6 (3.5-4.5) mEq/L Chloride 118 H (98-109) mEq/L Carbon Dioxide 19 (19-29) mEq/L BUN 7 L (8-26) mg/dL Creatinine 0.83 (0.72-1.25) mg/dL Glucose 103 H (70-99) mg/dL Calcium 7.5 L (8.6-10.8) mg/dL Adrenal panel 04/03/17 Range/Units 04:10 Sodium 143 (136-145) mEq/L Potassium 3.6 (3.5-4.5) mEq/L Chloride 118 H (98-109) mEq/L Carbon Dioxide 19 (19-29) mEq/L BUN 7 L (8-26) mg/dL Creatinine 0.83 (0.72-1.25) mg/dL Glucose 103 H (70-99) mg/dL Calcium 7.5 L (8.6-10.8) mg/dL Consult Discharge Plan - Plan Referrals: Guillermo Garibay MD [Primary Care Provider] - 04/10/17 3:15 pm (Please follow up as schedule..) - Attending Attestation I examined this patient and my medical decision-making was reviewed with the PREPARATOR/PA/Advanced Practice Nurse/Resident Physician. I agree with the documented findings, disposition and treatment plan as described except to the extent set forth below. The patient is seen and evaluated. His abdomen is soft. He does have stool in his ostomy appliance. The nasogastric tube drainage has no bile. We will place the NG to a Marrufo bag and remove it later today if the drainage is minimal. If he continues to have obstructive symptoms we will order small bowel follow-through. Renaldo Miller MD FACS
[2017-04-03] MEDS: Insulin LISPRO 300 UNITS/3 ML VIAL SQ SCH ×4 (07:53→22:32)
[2017-04-03] MEDS ORDERED: Magnesium Sulfate 2 GM in D5% in Water 100 ML IVPB ONE (08:07)
[2017-04-03] MEDS: Aspirin 81 MG TAB.CHEW PO SCH (08:53)
[2017-04-03] MEDS: Folic Acid 1 MG TABLET PO SCH (08:54)
[2017-04-03] MEDS: Pantoprazole 40 MG VIAL IVP SCH (09:02)
[2017-04-03] MEDS: Ampicillin 2 GM in 0.9 % Sodium Chloride Mini Bag 100 ML IVPB SCH ×3 (11:39→23:35)
--- NOTE | 2017-04-03 15:48 | Internal Med Progress Note ---
Date of Encounter: 04/03/17 Time of Encounter: 11:00 - Assessment and plan (1) Abdominal pain Current Visit: No Status: Acute Assessment and plan: SBO in setting of a patient with history of colon cancer and s/p colostomy (25 years ago), recent sbo and recent colonoscopy. had abd pain and distention overnight, currently npo, xray consistent with sbo, ng tube ordered was connected to sucion, now on gravty, will follow srgical team input, possible removal of ng tube today. Qualifiers: Abdominal location: right upper quadrant Qualified Code(s): R10.11 - Right upper quadrant pain (2) Atrial fibrillation Current Visit: Yes Status: Chronic Assessment and plan: A fib with RVR likely exarbated by UTI, rate controled for now, will continue monitoring, patient with history of afib, he was nly on asprin as home med. not on AC. Back to sinus now. Qualifiers: Atrial fibrillation type: paroxysmal Qualified Code(s): I48.0 - Paroxysmal atrial fibrillation (3) DVT prophylaxis Current Visit: No Status: Acute (4) Small bowel obstruction Current Visit: No Status: Acute Assessment and plan: has colostomy bag, Hx of colon cancer, npo for now and surgicl consult. (5) UTI (urinary tract infection) Current Visit: No Status: Acute Assessment and plan: Recent cultures positive for enterococcus which was sensitive to ampicillin Start ampicilin. Transition to po soon. Qualifiers: Urinary tract infection type: acute cystitis Hematuria presence: with hematuria Qualified Code(s): N30.01 - Acute cystitis with hematuria (6) DM type 2 (diabetes mellitus, type 2) Current Visit: Yes Status: Chronic Assessment and plan: ISS Qualifiers: Diabetes mellitus complication status: without complication Diabetes mellitus ferry terminal agent insulin use: without skilled nursing use Qualified Code(s): E11.9 - Type 2 diabetes mellitus without complications (7) Hypertension Current Visit: Yes Status: Chronic Qualifiers: Hypertension type: essential hypertension Qualified Code(s): I10 - Essential (primary) hypertension - Subjective Interval history: still complaining of abd pain but feels better, no fever, no nausea or vomiting , had a similar episode a few weeks ago. ng tube placed - Constitutional Vitals: Temp Pulse Resp BP Pulse Ox 98.1 F 93 18 145/82 98 04/03/17 15:01 04/03/17 15:01 04/03/17 10:56 04/03/17 15:01 04/03/17 15:01 General appearance: Present: cooperative, A&O X 3, pleasant - Head Head exam: Present: atraumatic, normocephalic - Eye Eye exam: Present: PERRL, conjuntiva pink, sclera anicteric Pupils: Present: PERRL - Neck Neck exam general surgery: Present: supple, trachea midline. Absent: lymphadenopathy - Respiratory Respiratory exam: Present: CTAB. Absent: accessory muscle use, rales, rhonchi, wheezes - Cardiovascular Cardiovascular exam: Present: RRR, +S1, +S2. Absent: diastolic murmur, gallop, rubs, systolic murmur - GI/Abdominal GI/Abdominal exam: Present: soft, no peritoneal signs. Absent: distended, tenderness Additional comments: distended abd, colostomy bag noted. - Extremities Exam Extremities exam: Present: warm, radial pulses palpable and symetrical. Absent : calf tenderness, cyanotic, pedal edema - Neurological Exam Neurological exam: Present: CN II-XII intact, oriented X3, no focal deficits. Absent: pronater drift, facial droop, speech deficit - Skin Skin exam: Present: dry, intact Internal Medicine: Result - Labs CBC & Chem 7: 04/03/17 04:10 04/03/17 04:10 Labs: Short CBC 04/03/17 Range/Units 04:10 WBC 5.4 (4.3-11.1) K/mcL Hgb 11.4 L (12.9-16.9) g/dL Hct 35.7 L (37.5-50.1) % Plt Count 162 (140-400) K/mcL Neutrophils # 4.2 (1.6-8.9) K/mcL BMP 04/03/17 04:10 Sodium 143 Potassium 3.6 Chloride 118 H Carbon Dioxide 19 BUN 7 L Creatinine 0.83 Glucose 103 H Calcium 7.5 L - ABG Interpretation ABG results: PT/INR, D-dimer PT 12.6 Seconds (9.4-12.1) H 03/30/17 14:22 D-Dimer 689 ng/mLFEU (0-500) H 03/30/17 14:22 Consult Discharge Plan - Plan Referrals: Guillermo Garibay MD [Primary Care Provider] - 04/10/17 3:15 pm (Please follow up as schedule..)
[2017-04-04 04:23] LABS: Basophils % 0.8 %; Eosinophils # 0.1 K/mcL (0.0-0.6); Eosinophils % 2.3 %; Hematocrit 32.8 % (37.5-50.1); Hemoglobin 10.6 g/dL (12.9-16.9); Immature Granulocytes % 0.6 % (0-4); Lymphocytes # 0.7 K/mcL (0.6-4.6); Lymphocytes % 12.5 %; Mean Corpuscular HGB Conc 32.3 g/dL (31.6-35.5); Mean Corpuscular Hemoglobin 29.5 pg (28.0-33.3); Mean Corpuscular Volume 91.4 fL (83.0-100.0); Monocytes # 0.5 K/mcL (0.0-1.3); Monocytes % 9.8 %; Neutrophils # 3.8 K/mcL (1.6-8.9); Platelet Count 149 K/mcL (140-400); Red Blood Count 3.59 M/mcL (4.19-5.50); Red Cell Distribution Width 14.8 % (11.5-14.5)
[2017-04-04] MEDS: Ampicillin 2 GM in 0.9 % Sodium Chloride Mini Bag 100 ML IVPB SCH ×3 (05:23→17:40)
[2017-04-04] MEDS: *HR* Heparin 5,000 UNIT/ML VIAL SQ SCH ×2 (05:23→17:40)
[2017-04-04 05:34] LABS: BUN/Creatinine Ratio 6 (6-26); Calcium 7.3 mg/dL (8.6-10.8); Carbon Dioxide 19 mEq/L (19-29); Chloride 114 mEq/L (98-109); Glucose 128 mg/dL (70-99); Magnesium 1.7 mg/dL (1.6-2.6); Osmolality,Calculated 291 (280-300); Potassium 3.4 mEq/L (3.5-4.5); Sodium 141 mEq/L (136-145); eGFR For African Americans > 60 (> 60); eGFR For Non-African Americans > 60 (> 60)
[2017-04-04 05:36] LABS: Blood Urea Nitrogen 5 mg/dL (8-26)
[2017-04-04] MEDS: Insulin LISPRO 300 UNITS/3 ML VIAL SQ SCH ×4 (06:41→21:12)
--- NOTE | 2017-04-04 06:49 | General Surgery Progress Note ---
Date of Encounter: 04/04/17 Time of Encounter: 06:47 - Assessment and Plan (1) Small bowel obstruction Current Visit: Yes Status: Acute WBC 5.2, patient is afebrile, VSS NG removed yesterday, patient is tolerating full liquids. Patient notes increased output in his colostomy bag. BS present, mild tenderness LUQ, LLQ with palpation Recommend conservative management at this time Plan to advance patient's diet to diabetic. If he tolerates this, surgery will sign off. Plan: -Advance to diabetic diet -Continue IVF@100/hr -Continue pain medication and supportive care -Repeat AM labs (2) S/P colon resection Current Visit: No Status: Chronic (3) History of colon cancer Current Visit: No Status: Resolved (4) S/P colostomy Current Visit: Yes Status: Chronic (5) Atrial fibrillation Current Visit: Yes Status: Chronic Currently rate controlled and in NSR Management per medicine team Qualifiers: Atrial fibrillation type: paroxysmal Qualified Code(s): I48.0 - Paroxysmal atrial fibrillation (6) DM type 2 (diabetes mellitus, type 2) Current Visit: Yes Status: Chronic Blood glucose low 100's Management per medicine team Qualifiers: Diabetes mellitus complication status: without complication Diabetes mellitus oil heaterman insulin use: without long-term use Qualified Code(s): E11.9 - Type 2 diabetes mellitus without complications (7) Hypertension Current Visit: Yes Status: Chronic Stable Management per medicine team Qualifiers: Hypertension type: essential hypertension Qualified Code(s): I10 - Essential (primary) hypertension Subjective Patient reports: feels better, pain is less, tolerating liquids well, flatus, bowel movement, afebrile Narrative: The patient was seen and examined. He states his NG tube was removed yesterday afternoon. He has been tolerating full liquids. He states he has had more output in his colostomy bag along with gas. He has mild abdominal tenderness, however he states that it is much improved compared to prior. He denies nausea or vomiting. Objective Vital Signs - Last 8 Hours Temp Pulse Resp BP Pulse Ox 04/03/17 23:57 97.9 F 68 16 112/72 95 Intake and Output 04/03/17 04/03/17 04/04/17 15:59 23:59 07:59 Intake Total 1684 / 1684 1240 / 1240 100 / 100 Output Total 375 / 375 1000 / 1000 Balance 1309 / 1309 240 / 240 100 / 100 Intake: IV Fluids 1204 / 1204 1000 / 1000 100 / 100 0.9 % Sodium Chloride 1, 1000 / 1000 900 / 900 000 ML @ 100 mls/hr IVC . Q10H [facility] Rx#:[id number] Ampicillin 2 GM In 0.9 % 100 / 100 100 / 100 100 / 100 Sodium Chloride (Mini-Bag +) 100 ML @ 200 mls/hr IVPB Q6HR [facility] Rx#: [id number] Magnesium Sulfate 2 GM In 104 / 104 Dextrose 5% 100 ML @ 100 mls/hr IVPB ONCE ONE Rx# :[id number] Oral 480 / 480 240 / 240 Output: Stool 375 / 375 1000 / 1000 Other: Meal Lunch Dinner Percent of Meal Consumed 100% 100% # Urine Diapers 1 Blood Glucose* 123 111 - General physical appearance well developed, well nourished, no distress, no pain, obese - Eyes PERRL - ENT normal pinna, normal nares, normal mucosa, atraumatic, normocephalic - Neck Neck exam: trachea midline - Respiratory normal expansion, normal respiratory effort, clear to auscultation - Cardiovascular Cardiovascular exam: Present: RRR, no murmurs/rubs/gallops - Abdomen Abdomen: Present: bowel sounds present, soft, tender (mild). Absent: distended Abdominal Tenderness: LUQ, LLQ Additional Comments: Colostomy located in the right mid abdomen with light brown liquid stool present in the bag. Ostomy site is pink. - Neurologic normal coordination, normal sensation - Psychiatric oriented to time, oriented to person, oriented to place, speech is normal, memory intact - Labs 04/04/17 03:35 04/04/17 03:35 Diabetes panel 04/04/17 Range/Units 03:35 Sodium 141 (136-145) mEq/L Potassium 3.4 L (3.5-4.5) mEq/L Chloride 114 H (98-109) mEq/L Carbon Dioxide 19 (19-29) mEq/L BUN 5 L (8-26) mg/dL Creatinine 0.80 (0.72-1.25) mg/dL Glucose 128 H (70-99) mg/dL Calcium 7.3 L (8.6-10.8) mg/dL Calcium panel 04/04/17 Range/Units 03:35 Calcium 7.3 L (8.6-10.8) mg/dL Pituitary panel 04/04/17 Range/Units 03:35 Sodium 141 (136-145) mEq/L Potassium 3.4 L (3.5-4.5) mEq/L Chloride 114 H (98-109) mEq/L Carbon Dioxide 19 (19-29) mEq/L BUN 5 L (8-26) mg/dL Creatinine 0.80 (0.72-1.25) mg/dL Glucose 128 H (70-99) mg/dL Calcium 7.3 L (8.6-10.8) mg/dL Adrenal panel 04/04/17 Range/Units 03:35 Sodium 141 (136-145) mEq/L Potassium 3.4 L (3.5-4.5) mEq/L Chloride 114 H (98-109) mEq/L Carbon Dioxide 19 (19-29) mEq/L BUN 5 L (8-26) mg/dL Creatinine 0.80 (0.72-1.25) mg/dL Glucose 128 H (70-99) mg/dL Calcium 7.3 L (8.6-10.8) mg/dL Consult Discharge Plan - Plan Referrals: Guillermo Garibay MD [Primary Care Provider] - 04/10/17 3:15 pm (Please follow up as schedule..) - Attending Attestation I examined this patient and my medical decision-making was reviewed with the CRITICAL CARE TECHNICIAN/PA/Advanced Practice Nurse/Resident Physician. I agree with the documented findings, disposition and treatment plan as described except to the extent set forth below. The patient is seen and evaluated on morning rounds. He is passing stool in his ostomy and has no evidence of bowel obstruction. We will plan to advance his diet. Renaldo Miller MD FACS
[2017-04-04] MEDS: Aspirin 81 MG TAB.CHEW PO SCH (08:43)
[2017-04-04] MEDS: Folic Acid 1 MG TABLET PO SCH (08:43)
[2017-04-04] MEDS: Pantoprazole 40 MG VIAL IVP SCH (08:44)
[2017-04-04] MEDS ORDERED: Potassium Chloride Elixir 20 MEQ/15 ML UDC PO ONE (09:00)
[2017-04-04] MEDS ORDERED: 0.9 % Sodium Chloride 1,000 ML IVC SCH (09:01)
[2017-04-04] MEDS: Magnesium Oxide 400 MG TABLET PO SCH ×2 (10:20→21:09)
--- NOTE | 2017-04-04 14:55 | Internal Med Progress Note ---
Date of Encounter: 04/04/17 Time of Encounter: 12:00 - Assessment and plan (1) Abdominal pain Current Visit: No Status: Acute Assessment and plan: SBO in setting of a patient with history of colon cancer and s/p colostomy (25 years ago), recent sbo and recent colonoscopy. Has improved, NG tube was removed yesterday and the patient was started on clear liquid diet. Today he was advanced to regular diet according to recommendations by the surgical team. We will continue monitoring. If patient is stable possible discharge tomorrow in a.m. Discussed with patient, he expressed understanding. Qualifiers: Abdominal location: right upper quadrant Qualified Code(s): R10.11 - Right upper quadrant pain (2) Atrial fibrillation Current Visit: Yes Status: Chronic Assessment and plan: A fib with RVR likely exarbated by UTI, rate controled for now, will continue monitoring, patient with history of afib, he was nly on asprin as home med. not on AC. Back to sinus now. Qualifiers: Atrial fibrillation type: paroxysmal Qualified Code(s): I48.0 - Paroxysmal atrial fibrillation (3) DVT prophylaxis Current Visit: No Status: Acute (4) Small bowel obstruction Current Visit: No Status: Acute (5) UTI (urinary tract infection) Current Visit: No Status: Acute Assessment and plan: Recent cultures positive for enterococcus which was sensitive to ampicillin Continue with ampicilin. Transition to po tomorrow upon discharge Qualifiers: Urinary tract infection type: acute cystitis Hematuria presence: with hematuria Qualified Code(s): N30.01 - Acute cystitis with hematuria (6) DM type 2 (diabetes mellitus, type 2) Current Visit: Yes Status: Chronic Qualifiers: Diabetes mellitus complication status: without complication Diabetes mellitus polysomnography tech insulin use: without half-way use Qualified Code(s): E11.9 - Type 2 diabetes mellitus without complications (7) Hypertension Current Visit: Yes Status: Chronic Qualifiers: Hypertension type: essential hypertension Qualified Code(s): I10 - Essential (primary) hypertension - Subjective Interval history: The patient feels better, no fever, no nausea or vomiting, had a similar episode a few weeks ago. ng tube was removed, patient has tolerated the clear liquid diet and is on a program of diet as per the surgical team. - Constitutional Vitals: Temp Pulse Resp BP Pulse Ox 97.7 F 66 20 128/79 97 04/04/17 10:48 04/04/17 10:48 04/04/17 10:48 04/04/17 10:48 04/04/17 10:48 General appearance: Present: cooperative, A&O X 3, pleasant - Head Head exam: Present: atraumatic, normocephalic - Eye Eye exam: Present: PERRL, conjuntiva pink, sclera anicteric Pupils: Present: PERRL - Neck Neck exam general surgery: Present: supple, trachea midline. Absent: lymphadenopathy - Respiratory Respiratory exam: Present: CTAB. Absent: accessory muscle use, rales, rhonchi, wheezes - Cardiovascular Cardiovascular exam: Present: RRR, +S1, +S2. Absent: diastolic murmur, gallop, rubs, systolic murmur - GI/Abdominal GI/Abdominal exam: Present: normal bowel sounds, soft, no peritoneal signs. Absent: distended, tenderness - Extremities Exam Extremities exam: Present: warm, radial pulses palpable and symetrical. Absent : calf tenderness, cyanotic, pedal edema - Neurological Exam Neurological exam: Present: CN II-XII intact, oriented X3, no focal deficits. Absent: pronater drift, facial droop, speech deficit - Skin Skin exam: Present: dry, intact Internal Medicine: Result - Labs CBC & Chem 7: 04/04/17 03:35 04/04/17 03:35 Labs: Short CBC 04/04/17 Range/Units 03:35 WBC 5.2 (4.3-11.1) K/mcL Hgb 10.6 L (12.9-16.9) g/dL Hct 32.8 L (37.5-50.1) % Plt Count 149 (140-400) K/mcL Neutrophils # 3.8 (1.6-8.9) K/mcL BMP 04/04/17 03:35 Sodium 141 Potassium 3.4 L Chloride 114 H Carbon Dioxide 19 BUN 5 L Creatinine 0.80 Glucose 128 H Calcium 7.3 L - ABG Interpretation ABG results: PT/INR, D-dimer PT 12.6 Seconds (9.4-12.1) H 03/30/17 14:22 D-Dimer 689 ng/mLFEU (0-500) H 03/30/17 14:22 Consult Discharge Plan - Plan Referrals: Guillermo Garibay MD [Primary Care Provider] - 04/10/17 3:15 pm (Please follow up as schedule..)
[2017-04-05] MEDS: Ampicillin 2 GM in 0.9 % Sodium Chloride Mini Bag 100 ML IVPB SCH ×3 (00:43→11:36)
[2017-04-05 04:14] LABS: Basophils % 0.5 %; Eosinophils # 0.1 K/mcL (0.0-0.6); Eosinophils % 2.4 %; Hematocrit 33.2 % (37.5-50.1); Hemoglobin 10.5 g/dL (12.9-16.9); Immature Granulocytes % 0.5 % (0-4); Lymphocytes # 0.7 K/mcL (0.6-4.6); Lymphocytes % 12.5 %; Mean Corpuscular HGB Conc 31.6 g/dL (31.6-35.5); Mean Corpuscular Hemoglobin 28.9 pg (28.0-33.3); Mean Corpuscular Volume 91.5 fL (83.0-100.0); Mean Platelet Volume 9.9 fL (9.4-12.4); Monocytes # 0.5 K/mcL (0.0-1.3); Monocytes % 9.7 %; Neutrophils # 4.1 K/mcL (1.6-8.9); Platelet Count 151 K/mcL (140-400); Red Blood Count 3.63 M/mcL (4.19-5.50); Red Cell Distribution Width 14.7 % (11.5-14.5); Segmented Neutrophils % 74.4 %
[2017-04-05 04:34] LABS: BUN/Creatinine Ratio 4 (6-26); Calcium 7.5 mg/dL (8.6-10.8); Carbon Dioxide 19 mEq/L (19-29); Chloride 116 mEq/L (98-109); Glucose 134 mg/dL (70-99); Osmolality,Calculated 293 (280-300); Potassium 3.7 mEq/L (3.5-4.5); Sodium 142 mEq/L (136-145); eGFR For African Americans > 60 (> 60); eGFR For Non-African Americans > 60 (> 60)
[2017-04-05 04:37] LABS: Blood Urea Nitrogen 4 mg/dL (8-26)
[2017-04-05] MEDS: *HR* Heparin 5,000 UNIT/ML VIAL SQ SCH (05:58)
[2017-04-05] MEDS: Insulin LISPRO 300 UNITS/3 ML VIAL SQ SCH ×2 (07:43→11:33)
[2017-04-05] MEDS: Aspirin 81 MG TAB.CHEW PO SCH (07:50)
[2017-04-05] MEDS: Magnesium Oxide 400 MG TABLET PO SCH (07:50)
[2017-04-05] MEDS: Folic Acid 1 MG TABLET PO SCH (07:50)
[2017-04-05 10:49] VITALS: BP 149/92
--- NOTE | 2017-04-05 11:00 | Discharge Summary ---
Date of Encounter: 04/05/17 Time of Encounter: 10:58 - Discharge Diagnosis (1) Abdominal pain Priority: Primary Status: Acute Qualifiers: Abdominal location: right upper quadrant Qualified Code(s): R10.11 - Right upper quadrant pain (2) Atrial fibrillation Priority: Secondary Status: Chronic Qualifiers: Atrial fibrillation type: paroxysmal Qualified Code(s): I48.0 - Paroxysmal atrial fibrillation (3) DVT prophylaxis Priority: Secondary Status: Acute (4) Small bowel obstruction Priority: Secondary Status: Acute (5) UTI (urinary tract infection) Priority: Secondary Status: Acute Qualifiers: Urinary tract infection type: acute cystitis Hematuria presence: with hematuria Qualified Code(s): N30.01 - Acute cystitis with hematuria (6) DM type 2 (diabetes mellitus, type 2) Priority: Secondary Status: Chronic Qualifiers: Diabetes mellitus complication status: without complication Diabetes mellitus fci insulin use: without dedicated intermodal truck driver use Qualified Code(s): E11.9 - Type 2 diabetes mellitus without complications (7) Hypertension Priority: Secondary Status: Chronic Qualifiers: Hypertension type: essential hypertension Qualified Code(s): I10 - Essential (primary) hypertension - Discharge Medications Prescriptions: Amoxicillin [Amoxil] 500 mg PO Q8HR 5 Days Home Medications: Atorvastatin [Lipitor] 40 mg PO DAILY 09/22/15 [History] Ferrous Sulfate 325 mg PO BID 09/22/15 [History] Furosemide [Lasix] 40 mg PO DAILY 09/22/15 [History] Glimepiride [Amaryl] 4 mg PO DAILY 09/22/15 [History] Potassium Chloride 40 meq PO DAILY 09/22/15 [History] Ranitidine HCl [Zantac] 150 mg PO BID 09/22/15 [History] Docusate [Colace] 100 mg PO BID #60 capsule 09/30/15 [Rx] Folic Acid 1 mg PO DAILY #30 tablet 11/01/15 [Rx] Metoprolol [Lopressor] 25 mg PO DAILY 05/14/16 [History] SitaGLIPtin [Januvia] 100 mg PO DAILY 05/14/16 [History] Albuterol Sulfate [Proair Hfa] 2 puff IH Q4H PRN 06/07/16 [History] Aspirin 81 mg PO DAILY 08/13/16 [History] Diltiazem HCl [Diltiazem 24Hr Cd] 120 mg PO DAILY 03/19/17 [History] Amoxicillin [Amoxil] 500 mg PO Q8HR 5 Days 04/05/17 [Rx] Allergies/Adverse Reactions: Allergies No Known Allergies Allergy (Verified 03/19/17 10:52) Date of admission: 04/01/17 13:10 Primary care physician: Guillermo Garibay MD Consults: 04/02/17 09:13 Consult to Surgery [CONS] Routine Consulting Provider: [facility] Reason for Consult: SBO Call Completed: No Discharging clinician: Pal Kingston Anticipated date of discharge: 04/05/17 - Patient Status Disposition: Home, Self-Care Condition: Fair Functional capacity at discharge: independent ambulation Overall status at discharge: patient is back to baseline - Discharge Instructions Follow Up With: Guillermo Garibay MD [Primary Care Provider] - 04/10/17 3:15 pm (Please follow up as schedule..) - Diet and Activity Activity: increase activity as tolerated Diet: advance to your usual diet Interval History: Mr. Mccain is a 71 year old male with a past medical history of COPD not oxygen dependent, diabetes type 2 not insulin-dependent, colon cancer, small bowel obstruction discharged from this hospital on 01/30/2017. Comes in hospital complaining of 2 weeks of progressive shortness of breath. The patient has not gained any weight. Chest x-ray shows no abnormalities and his lungs sound clear. His oxygen saturation is 92% on room air, his creatinine has increased progressively from 0.86 Abdullah 1.55 at the beginning of this month and now 1.46. White blood cell count is 12.5 blood pressure 145/60. There is no suspicion of CHF or COPD exacerbations. The patient does not move much around he is not tachycardic but he takes Cardizem and metoprolol. He is in respiratory distress but unfortunately his creatinine is 1.46 GFR is [address] scan of the chest with contrast will not be able to be performed. Denies any other symptoms other than dizziness, cannot rule out pulmonary emboli. Hospital course: Mr. Mccain is a 71 year old male initially admitted due to possible CHF exacerbation of Diastolic origin. Initially started on Lasix. He underwent workup for possible pulmonary embolism which included a VQ scan which showed low probability for PE. During this admission he was found to have abdominal pain and developed a small bowel obstruction for which he had an NG tube placed which was initially connected to suction. A consultation with our surgical team was requested, the patient improved from the abdominal pain and ultimately the NG tube was removed, he has tolerated diet. Additionally, the patient developed a fib with rapid ventricular response, he has a history of A. fib, exacerbation of the A. fib was likely secondary to both UTI and abdominal pain. Rate control was achieved with Cardizem. The patient was also found to have a urinary tract infection due to enterococcus , sensitive to ampicillin. He was given ampicillin via IV, now that he is able to tolerate will complete therapy with amoxicillin. The patient is otherwise stable, has been able to tolerate by mouth, denies nausea, vomiting or abdominal pain. I will discharge the patient home today, he will resume his home medications and I will given a prescription to complete his treatment for a urinary tract infection with by mouth amoxicillin. The patient was explained in detail with the plan of care, discharge instructions and follow-up plan. He expressed understanding. - Time Spent with Patient Total time spent providing and/or coordinating discharge services: - Constitutional Vitals: Temp Pulse Resp BP Pulse Ox 97.9 F 69 16 149/92 95 04/05/17 10:49 04/05/17 10:49 04/05/17 10:49 04/05/17 10:49 04/05/17 10:49 General appearance: Present: cooperative, A&O X 3, pleasant - Head Head exam: Present: atraumatic, normocephalic - Eye Eye exam: Present: PERRL, conjuntiva pink, sclera anicteric Pupils: Present: PERRL - Neck Neck exam general surgery: Present: supple, trachea midline. Absent: lymphadenopathy - Respiratory Respiratory exam: Present: CTAB. Absent: accessory muscle use, rales, rhonchi, wheezes - Cardiovascular Cardiovascular exam: Present: RRR, +S1, +S2. Absent: diastolic murmur, gallop, rubs, systolic murmur - GI/Abdominal GI/Abdominal exam: Present: normal bowel sounds, soft, no peritoneal signs. Absent: distended, tenderness - Extremities Exam Extremities exam: Present: warm, radial pulses palpable and symetrical. Absent : calf tenderness, cyanotic, pedal edema - Neurological Exam Neurological exam: Present: CN II-XII intact, oriented X3, no focal deficits. Absent: pronater drift, facial droop, speech deficit - Skin Skin exam: Present: dry, intact
--- NOTE | 2017-04-05 13:27 | Physician Discharge Referral ---
Home Health/Hosp Referral Info Transfer to: Home Health - Diagnosis (1) Abdominal pain Status: Acute (2) Atrial fibrillation Status: Chronic (3) DVT prophylaxis Status: Acute (4) Small bowel obstruction Status: Acute (5) UTI (urinary tract infection) Status: Acute (6) DM type 2 (diabetes mellitus, type 2) Status: Chronic (7) Hypertension Status: Chronic - Respiratory Orders Smoking Cessation: Smoking cessation has been advised. For more information, call the [place] Tobacco Quit Line at 9-502-YPLC-NOW. - Diet/Nutrition Diet/Nutrition Orders: Cardiac - Activity Activity Orders: Ambulate - Services Needed Following services are medically necessary services: Nursing, Home Health Aide - Transfer Medications Prescriptions: Amoxicillin [Amoxil] 500 mg PO Q8HR 5 Days Home Medications: Atorvastatin [Lipitor] 40 mg PO DAILY 09/22/15 [History] Ferrous Sulfate 325 mg PO BID 09/22/15 [History] Furosemide [Lasix] 40 mg PO DAILY 09/22/15 [History] Glimepiride [Amaryl] 4 mg PO DAILY 09/22/15 [History] Potassium Chloride 40 meq PO DAILY 09/22/15 [History] Ranitidine HCl [Zantac] 150 mg PO BID 09/22/15 [History] Docusate [Colace] 100 mg PO BID #60 capsule 09/30/15 [Rx] Folic Acid 1 mg PO DAILY #30 tablet 11/01/15 [Rx] Metoprolol [Lopressor] 25 mg PO DAILY 05/14/16 [History] SitaGLIPtin [Januvia] 100 mg PO DAILY 05/14/16 [History] Albuterol Sulfate [Proair Hfa] 2 puff IH Q4H PRN 06/07/16 [History] Aspirin 81 mg PO DAILY 08/13/16 [History] Diltiazem HCl [Diltiazem 24Hr Cd] 120 mg PO DAILY 03/19/17 [History] Amoxicillin [Amoxil] 500 mg PO Q8HR 5 Days 04/05/17 [Rx] Allergies/Adverse Reactions: Allergies No Known Allergies Allergy (Verified 03/19/17 10:52) Certification: Further, I certify that my clinical findings support that this patient is homebound (i.e. absences from home require considerable and taxing effort and are for medical reasons or restorationism services or infrequently or short duration when for other reasons) because: Homebound Reason: Patient requires assistance of a person or device to safely leave home Attestation: My signature below is to certify that this patient is under my care and that I, or nurse practitioner, or a physician's dietetic assistant working with me, has a face-to -face encounter with this patient.
== END 2017-04-05 14:10 | disposition home or self-care (01) | DRG 388 ==
LOC: EMEROO 10:44 → 2ANU 10:44 → SUATTDRO 13:16 → 2ANU 13:42 → SUATTDRO 04-01 13:10
PROVIDERS: ADMIT Internal Medicine; ATTEND Internal Medicine

== ENCOUNTER 2017-06-13 10:36 | Inpatient (IN) ==
[2017-06-13] MEDS ORDERED: 0.9 % Sodium Chloride 1,000 ML IVC ONE (10:46)
[2017-06-13] MEDS ORDERED: *HR* Promethazine 25 MG/ML VIAL IVP ONE (10:46)
[2017-06-13] MEDS ORDERED: *HR* Morphine 2 MG/ML SYRINGE IVP ONE ×2 (10:46→14:09)
[2017-06-13 11:09] LABS: Basophils # 0.1 K/mcL (0.0-0.2); Basophils % 0.6 %; Eosinophils # 0.1 K/mcL (0.0-0.6); Hematocrit 39.8 % (37.5-50.1); Hemoglobin 12.8 g/dL (12.9-16.9); Immature Granulocytes % 0.4 % (0-4); Mean Corpuscular HGB Conc 32.2 g/dL (31.6-35.5); Mean Corpuscular Volume 90.2 fL (83.0-100.0); Mean Platelet Volume 10.3 fL (9.4-12.4); Monocytes # 0.8 K/mcL (0.0-1.3); Monocytes % 7.9 %; Neutrophils # 8.4 K/mcL (1.6-8.9); Platelet Count 235 K/mcL (140-400); Red Blood Count 4.41 M/mcL (4.19-5.50); Red Cell Distribution Width 14.4 % (11.5-14.5); Segmented Neutrophils % 80.1 %
[2017-06-13 11:13] LABS: INR 1.1; Prothrombin Time 12.4 Seconds (9.4-12.1)
[2017-06-13 11:15] LABS: Activated Partial Thrombo Time 39.8 Seconds (26.0-36.0)
[2017-06-13 11:23] LABS: Alanine Aminotransferase 24 Units/L (0-55); Albumin 3.3 g/dL (3.5-5.0); Albumin/Globulin Ratio 0.8 (1.1-2.2); Alkaline Phosphatase 89 Units/L (38-126); Amylase 84 Units/L (25-125); Aspartate Amino Transferase 37 Units/L (5-34); BUN/Creatinine Ratio 14 (6-26); Bilirubin,Direct 0.2 mg/dL (0.0-0.5); Bilirubin,Indirect 0.4 mg/dL (0.0-1.2); Bilirubin,Total 0.6 mg/dL (0.2-1.2); Blood Urea Nitrogen 15 mg/dL (8-26); Calcium 9.9 mg/dL (8.6-10.8); Carbon Dioxide 21 mEq/L (19-29); Chloride 102 mEq/L (98-109); Globulin 4.4 g/dL (2.4-3.5); Glucose 157 mg/dL (70-99); Lipase 35 Units/L (8-78); Osmolality,Calculated 288 (280-300); Potassium 4.3 mEq/L (3.5-4.5); Sodium 137 mEq/L (136-145); Total Protein 7.7 g/dL (6.0-8.3); eGFR For African Americans > 60 (> 60); eGFR For Non-African Americans > 60 (> 60)
--- NOTE | 2017-06-13 12:04 | Emergency Department Note ---
Disposition Clinical Impression: Abdominal pain Disposition: Still a Patient Condition: Fair Instructions: Abdominal Pain (ED) Referrals: Unassigned,Provider [Non-Partnered Physician] - Forms: Work/School Release, ED Satisfaction Letter Time of Disposition: 12:07 Abdominal Pain HPI - General Chief Complaint: ED Abdominal Pain Stated Complaint: abd pain Time Seen by Provider: 06/13/17 10:44 Source: patient, EMS Mode of arrival: private vehicle Limitations: no limitations Nursing Notes Reviewed: Yes Vital Signs Reviewed: Yes - History of Present Illness HPI Narrative: 71-year-old male presents to the emergency department complaining of abdominal pain. Patient has a colostomy bag in place. Denies any pain around the site. Patient complains of diffuse abdominal pain without nausea or vomiting. Patient has been seen numerous times for similar episodes. He denies any chest pain, shortness of breath, dizziness or lightheadedness. He has no known drug allergies. Pt Subjective Complaint: abdominal pain Onset (ago): hour(s) Consistency: intermittent Location: diffuse Pain Severity: severe Pain Scale: 9 Quality: aching Radiation: none Migration to: no migration Improves with: nothing Worsens with: nothing Associated symptoms: Reports: denies other symptoms. Denies: nausea, vomiting, diarrhea Treatments prior to arrival: none - Related Data Home Medications Medication Instructions Recorded Confirmed Atorvastatin [Lipitor] 40 mg PO DAILY 09/22/15 03/30/17 Ferrous Sulfate 325 mg PO BID 09/22/15 03/30/17 Furosemide [Lasix] 40 mg PO DAILY 09/22/15 03/30/17 Glimepiride [Amaryl] 4 mg PO DAILY 09/22/15 03/30/17 Potassium Chloride 40 meq PO DAILY 09/22/15 03/30/17 Ranitidine HCl [Zantac] 150 mg PO BID 09/22/15 03/30/17 Metoprolol [Lopressor] 25 mg PO DAILY 05/14/16 03/30/17 SitaGLIPtin [Januvia] 100 mg PO DAILY 05/14/16 03/30/17 Albuterol Sulfate [Proair Hfa] 2 puff IH Q4H PRN 06/07/16 03/30/17 Aspirin 81 mg PO DAILY 08/13/16 03/30/17 Diltiazem HCl [Diltiazem 24Hr Cd] 120 mg PO DAILY 03/19/17 03/30/17 Previous Rx's Medication Instructions Recorded Docusate [Colace] 100 mg PO BID #60 capsule 09/30/15 Folic Acid 1 mg PO DAILY #30 tablet 11/01/15 Amoxicillin [Amoxil] 500 mg PO Q8HR 5 Days 04/05/17 Ondansetron [Zofran ODT] 8 mg SL Q8H PRN #10 tab.rapdis 05/15/17 OxyCODONE/APAP 10/325 [Percocet 1 each PO Q6HR PRN #12 tablet 05/15/17 10/325 MG] Allergies Allergy/AdvReac Type Severity Reaction Status Date / Time No Known Allergies Allergy Verified 03/19/17 10:52 All systems ED: reviewed and negative except as stated. Constitutional: Denies: fever, chills Gastrointestinal: Reports: abdominal pain. Denies: nausea, vomiting Musculoskeletal: Denies: back pain, neck pain Integumentary: Denies: rash, abrasion, lesions Neurological: Denies: headache Psychiatric: Denies: anxiety, depression, suicidal thoughts, homicidal thoughts Abdominal Pain PMH - Past Medical History Medical history: Reports: cancer, diabetes, hyperlipidemia, hypertension, other Male Surgical History: Reports: cancer surgery, colectomy, colostomy, other Psychiatric history: Reports: no psych history - Social History Smoking status: Former smoker Alcohol use: Reports: none Drug use: Reports: none Physical Exam - General Limitations: no limitations General appearance: alert, in no apparent distress - Head Head exam: atraumatic, normocephalic, normal inspection - ENT ENT exam: normal exam, normal oropharynx, mucous membranes moist - Neck Neck exam: Present: normal inspection, full ROM, trachea midline - Chest Chest inspection: Present: normal inspection, symmetric chest wall rise - Respiratory Respiratory exam: Present: normal lung sounds bilaterally. Absent: respiratory distress - Cardiovascular Cardiovascular exam: Present: regular rate, normal rhythm, normal heart sounds - Extremities Exam Extremities exam: Present: normal inspection, full ROM. Absent: tenderness, pedal edema - Expanded Lower Extremity Exam Gait: observed and normal - Back Exam Back exam: Present: normal inspection, full ROM. Absent: tenderness - Neurological Exam Neurological exam: Present: alert, oriented X3 - Psychiatric Psychiatric exam: Present: normal affect, normal mood - Skin Skin exam: Present: warm, dry, intact, normal color Course Course Narrative: Chronically elevated lactic acid. Patient has a nonsurgical abdominal exam. Awaiting results of the CT of abdomen and pelvis. Patient resting comfortably. Nontoxic appearing. No additional complaints or concerns at this time. Vital Signs Temperature 97.6 F 06/13/17 10:40 Pulse Rate 79 06/13/17 10:40 Respiratory Rate 18 06/13/17 10:40 Blood Pressure 146/81 06/13/17 10:40 O2 Sat by Pulse Oximetry 98 06/13/17 10:40 Temperature 97.6 F 06/13/17 10:40 Pulse Rate 79 06/13/17 10:40 Respiratory Rate 18 06/13/17 10:40 Blood Pressure 146/81 06/13/17 10:40 O2 Sat by Pulse Oximetry 97 06/13/17 10:44 Oxygen Delivery Oxygen Delivery Room Air Abdominal Pain - Lab Data Lab results reviewed: Yes I reviewed the patient's lab results. - Radiology Data Radiology results reviewed: Yes I reviewed the patient's radiology results.
--- NOTE | 2017-06-13 14:05 | Emergency Department Note ---
Disposition Clinical Impression: Partial small bowel obstruction Abdominal pain Qualifiers: Abdominal location: generalized Qualified Code(s): R10.84 - Generalized abdominal pain Disposition: Admitted As Inpatient Condition: Fair Time of Disposition: 14:05 General Adult HPI - General Chief complaint: ED Abdominal Pain Stated complaint: abd pain Time Seen by Provider: 06/13/17 10:44 Source: patient, EMS Mode of arrival: private vehicle Limitations: no limitations - History of Present Illness Pain Scale: 8 - Related Data Home Medications Medication Instructions Recorded Confirmed Atorvastatin [Lipitor] 40 mg PO DAILY 09/22/15 03/30/17 Ferrous Sulfate 325 mg PO BID 09/22/15 03/30/17 Furosemide [Lasix] 40 mg PO DAILY 09/22/15 03/30/17 Glimepiride [Amaryl] 4 mg PO DAILY 09/22/15 03/30/17 Potassium Chloride 40 meq PO DAILY 09/22/15 03/30/17 Ranitidine HCl [Zantac] 150 mg PO BID 09/22/15 03/30/17 Metoprolol [Lopressor] 25 mg PO DAILY 05/14/16 03/30/17 SitaGLIPtin [Januvia] 100 mg PO DAILY 05/14/16 03/30/17 Albuterol Sulfate [Proair Hfa] 2 puff IH Q4H PRN 06/07/16 03/30/17 Aspirin 81 mg PO DAILY 08/13/16 03/30/17 Diltiazem HCl [Diltiazem 24Hr Cd] 120 mg PO DAILY 03/19/17 03/30/17 Previous Rx's Medication Instructions Recorded Docusate [Colace] 100 mg PO BID #60 capsule 09/30/15 Folic Acid 1 mg PO DAILY #30 tablet 11/01/15 Amoxicillin [Amoxil] 500 mg PO Q8HR 5 Days 04/05/17 Ondansetron [Zofran ODT] 8 mg SL Q8H PRN #10 tab.rapdis 05/15/17 OxyCODONE/APAP 10/325 [Percocet 1 each PO Q6HR PRN #12 tablet 05/15/17 10/325 MG] Allergies Allergy/AdvReac Type Severity Reaction Status Date / Time No Known Allergies Allergy Verified 03/19/17 10:52 Constitutional: Denies: fever, chills Gastrointestinal: Reports: abdominal pain. Denies: nausea, vomiting Musculoskeletal: Denies: back pain, neck pain Integumentary: Denies: rash, abrasion, lesions Neurological: Denies: headache Psychiatric: Denies: anxiety, depression, suicidal thoughts, homicidal thoughts Past Medical History - Past Medical History Medical history: Reports: cancer, diabetes, hyperlipidemia, hypertension, other Surgical history: Reports: cholecystectomy (open), colectomy (transverse and descending colectomy with RUQ colostomy, colonoscopy with polypectomy), colostomy, other (bladder stone removed) Psychiatric history: Reports: no psych history - Social History Smoking Status: Former smoker Smokeless Tobacco Status: Yes Alcohol use: Reports: none Drug use: Reports: none Physical Exam - General Limitations: no limitations General appearance: alert, in no apparent distress Course - Reevaluation(s) Reevaluation #1: I took over the case from the physician web assistant, Pérez Willis. Patient presented with abdominal discomfort and nausea and constipation. He has history of colon cancer and has a colostomy in place. Lab workup looks good with the exception of elevated lactate. However patient's lactate level is always elevated on previous labs. I do not feel that is significantly different. While here in the department he did start vomiting. CAT scan showed increasing dilation of small bowel consistent with ileus versus partial small bowel obstruction. Given the overall picture I went ahead and put an NG tube in the patient. He needs to be admitted to the hospital for gut rest and IV fluids. I did speak with the hospitalist and arranged the admission. Time: 14:03 - Consultations Consultation #1: Dr. Lazaro, hospitalist - I discussed the case with the hospitalist. We reviewed the patient's presentation and past history. Reviewed his ER course. We reviewed lab results. Patient has been accepted to the hospital for admission. Time: 14:04 Vital Signs Temperature 97.6 F 06/13/17 10:40 Pulse Rate 79 06/13/17 10:40 Respiratory Rate 18 06/13/17 10:40 Blood Pressure 146/81 06/13/17 10:40 O2 Sat by Pulse Oximetry 98 06/13/17 10:40 Temperature 97.6 F 06/13/17 10:40 Pulse Rate 79 06/13/17 12:52 Respiratory Rate 18 06/13/17 12:52 Blood Pressure 159/91 06/13/17 12:52 O2 Sat by Pulse Oximetry 92 06/13/17 12:52 Oxygen Delivery Oxygen Delivery Room Air Medical Decision Making - Medical Records Medical records reviewed: Yes I reviewed the patient's medical records. - Lab Data Lab results reviewed: Yes I reviewed the patient's lab results. Result diagrams: 06/13/17 11:00 06/13/17 11:00 Lab Results 06/13/17 06/13/17 06/13/17 Range/Units 11:00 11:00 11:00 WBC 10.4 (4.3-11.1) K/mcL RBC 4.41 (4.19-5.50) M/mcL Hgb 12.8 L (12.9-16.9) g/dL Hct 39.8 (37.5-50.1) % MCV 90.2 (83.0-100.0) fL MCH 29.0 (28.0-33.3) pg MCHC 32.2 (31.6-35.5) g/dL RDW 14.4 (11.5-14.5) % Plt Count 235 (140-400) K/mcL MPV 10.3 (9.4-12.4) fL Immature Gran % 0.4 (0-4) % Seg Neutrophils % 80.1 % Lymphocytes % 10.0 % Monocytes % 7.9 % Eosinophils % 1.0 % Basophils % 0.6 % Neutrophils # 8.4 (1.6-8.9) K/mcL Lymphocytes # 1.0 (0.6-4.6) K/mcL Monocytes # 0.8 (0.0-1.3) K/mcL Eosinophils # 0.1 (0.0-0.6) K/mcL Basophils # 0.1 (0.0-0.2) K/mcL PT 12.4 H (9.4-12.1) Seconds INR 1.1 APTT 39.8 H (26.0-36.0) Seconds Sodium 137 (136-145) mEq/L Potassium 4.3 (3.5-4.5) mEq/L Chloride 102 (98-109) mEq/L Carbon Dioxide 21 (19-29) mEq/L BUN 15 (8-26) mg/dL Creatinine 1.05 (0.72-1.25) mg/dL Est GFR ( Amer) > 60 (> 60) Est GFR (Non-Af Amer) > 60 (> 60) BUN/Creatinine Ratio 14 (6-26) Glucose 157 H (70-99) mg/dL Calculated Osmolality 288 (280-300) Lactic Acid (0.5-2.2) mmol/L Calcium 9.9 (8.6-10.8) mg/dL Total Bilirubin 0.6 (0.2-1.2) mg/dL Direct Bilirubin 0.2 (0.0-0.5) mg/dL Indirect Bilirubin 0.4 (0.0-1.2) mg/dL AST 37 H (5-34) Units/L ALT 24 (0-55) Units/L Alkaline Phosphatase 89 (38-126) Units/L Serum Total Protein 7.7 (6.0-8.3) g/dL Albumin 3.3 L (3.5-5.0) g/dL Globulin 4.4 H (2.4-3.5) g/dL Albumin/Globulin Ratio 0.8 L (1.1-2.2) Amylase 84 (25-125) Units/L Lipase 35 (8-78) Units/L // Range/Units 11:00 WBC (4.3-11.1) K/mcL RBC (4.19-5.50) M/mcL Hgb (12.9-16.9) g/dL Hct (37.5-50.1) % MCV (83.0-100.0) fL MCH (28.0-33.3) pg MCHC (31.6-35.5) g/dL RDW (11.5-14.5) % Plt Count (140-400) K/mcL MPV (9.4-12.4) fL Immature Gran % (0-4) % Seg Neutrophils % % Lymphocytes % % Monocytes % % Eosinophils % % Basophils % % Neutrophils # (1.6-8.9) K/mcL Lymphocytes # (0.6-4.6) K/mcL Monocytes # (0.0-1.3) K/mcL Eosinophils # (0.0-0.6) K/mcL Basophils # (0.0-0.2) K/mcL PT (9.4-12.1) Seconds INR APTT (26.0-36.0) Seconds Sodium (136-145) mEq/L Potassium (3.5-4.5) mEq/L Chloride (98-109) mEq/L Carbon Dioxide (19-29) mEq/L BUN (8-26) mg/dL Creatinine (0.72-1.25) mg/dL Est GFR ( Amer) (> 60) Est GFR (Non-Af Amer) (> 60) BUN/Creatinine Ratio (6-26) Glucose (70-99) mg/dL Calculated Osmolality (280-300) Lactic Acid 4.7 H* (0.5-2.2) mmol/L Calcium (8.6-10.8) mg/dL Total Bilirubin (0.2-1.2) mg/dL Direct Bilirubin (0.0-0.5) mg/dL Indirect Bilirubin (0.0-1.2) mg/dL AST (5-34) Units/L ALT (0-55) Units/L Alkaline Phosphatase (38-126) Units/L Serum Total Protein (6.0-8.3) g/dL Albumin (3.5-5.0) g/dL Globulin (2.4-3.5) g/dL Albumin/Globulin Ratio (1.1-2.2) Amylase (25-125) Units/L Lipase (8-78) Units/L - Radiology Data Radiology results reviewed: Yes I reviewed the patient's radiology results.
--- NOTE | 2017-06-13 14:20 | Event Note ---
Date of Encounter: 06/13/17 Time of Encounter: 14:18 1. Severe abdominal pain and dehydration secondary to ileus versus partial small bowel obstruction History of small bowel obstructions in the past Keep nothing by mouth, NG tube to suction, IV fluids, morphine as needed for pain and Zofran as needed for nausea Consult surgery if not improving 2. Lactic acidosis which is chronic 3. History of colon cancer status post resection, stable 4. Diabetes type 2 not insulin-dependent, may use insulin sliding scale low dose while nothing by mouth 5. History of atrial fibrillation not on anticoagulation Protonix IV for GI prophylaxis and Lovenox for DVT prophylaxis. The patient will be admitted as inpatient, expected to stay more than 2 midnights. Full code, time spent on this admission 40 minutes. H&P to be completed by BRENT Meyers
[2017-06-13] MEDS ORDERED: Ondansetron 4 MG/2 ML VIAL IVP PRN (14:43)
[2017-06-13] MEDS ORDERED: Naloxone 0.4 MG/ML INJ IVP PRN (14:43)
[2017-06-13] MEDS ORDERED: Dextrose Gel 15 GM PO PRN ×2 (14:50)
[2017-06-13] MEDS ORDERED: *HR* Dextrose 50 % in Water (Syg) 50 ML SYRINGE IVP PRN (14:50)
[2017-06-13] MEDS ORDERED: D5% in Water 1,000 ML IVC PRN (14:50)
--- NOTE | 2017-06-13 15:01 | Internal Med History&Physical ---
<Ana Meyers - Last Filed: 06/13/17 15:18> Date of Encounter: 06/13/17 Time of Encounter: 14:53 Assessment and Plan (1) Abdominal pain Current visit: Yes Status: Acute 1 patient is experiencing abdominal pain for the past 24 hours as well as nausea. He has not been passing any flatus or making stool through his colostomy. CT of his abdomen did reveal ileus versus partial small bowel obstruction.-Patient does have history of small bowel obstruction past. NG placed, continue with intermittent low wall suction 2 we will continue with IV fluids and morphine for pain and Zofran to see for nausea 3 the patient not improving consult surgery . Qualifiers: Abdominal location: generalized Qualified Code(s): R10.84 - Generalized abdominal pain (2) Paroxysmal atrial fibrillation Current visit: Yes Status: Acute 1 patient has history of approximately 2 fibrillation he is on Cardizem for rate control however he started on any anticoagulation at this time. We will continue with his Cardizem, metoprolol (3) DM type 2 (diabetes mellitus, type 2) Current visit: No Status: Chronic 1 patient is nothing by mouth we will check his blood sugar every 6 hours signs , insulin needed. We will hold his oral medications for now Qualifiers: Diabetes mellitus complication status: without complication Diabetes mellitus ocean transportation intermediary insulin use: without residential use Qualified Code(s): E11.9 - Type 2 diabetes mellitus without complications (4) Diastolic heart failure Current visit: No Status: Chronic 1 last echo 04/03 revealed an EF of percent. Presently appears to be stable. He appears to be slightly dry we will hold his Lasix for now and give IV fluid and reevaluate monitoring for any fluid overload Qualifiers: Heart failure chronicity: chronic Qualified Code(s): I50.32 - Chronic diastolic (congestive) heart failure (5) DVT prophylaxis Current visit: No Status: Acute [facility] Internal Medicine - H&P: HPI Chief complaint: abd pain Admitted From: Emergency Dept Plans for Post Hospital Care: Home History of present illness: Mr. Mccain is a 71 year old male past medical history of colon cancer with resection and colostomy diastolic heart failure COPD non-oxygen dependent diabetes [id number] GERD hypertension paroxysmal atrial fibrillation on no anticoagulation past history of small bowel obstructions. Patient states that he has been in his normal state of health up until yesterday when after eating breakfast he began to experience some sharp diffuse abdominal pain. Today a progressively worsened, experiencing nausea , he also noticed he was not passing any flatus or making any stool from his colostomy. He denies any fevers chills vomiting chest pain or shortness of breath. He presented to the ER with the above complaints. According to ER records and lab work was unremarkable except he did have an elevated lactate this appears to be chronic. CT of abdomen did reveal increasing dilatation of small bowel consistent with ileus versus partial small bowel obstruction. NG was placed with a large amount of green liquid and return. He was given IV fluids and has been admitted for further workup and evaluation. Presently patient does not appear to be in respiratory distress to chest pain or shortness of breath. Abdomen is distended nontender to palpation he has a colostomy with no drainage at this time. NG patent draining green fluids. Lung sounds are clear heart sounds are regular S1 and S2 with no rubs clicks, murmurs noted. He is hemodynamically stable this time. I reviewed this case with Dr Lazaro who agrees with plan. Past Med Surg Social Fam HX - Past Medical History Medical history: cancer, diabetes, hyperlipidemia, hypertension, other Psychiatric history: no psych history - Past Surgical History Surgical History: cholecystectomy (open), colectomy (transverse and descending colectomy with RUQ colostomy, colonoscopy with polypectomy), colostomy, other ( bladder stone removed) - Social History Smoking Status: Former smoker Smokeless Tobacco Status: Yes Alcohol use: none Drug use: none - Family History Father Adopted: No Living Status: Hx Family Cardiac Disorders: Yes Hx Family Respiratory Disorders: No Hx Family Cancer: No Hx Family GI Disorders: No Hx Family Endocrine Disorder: No Hx Family Neuromuscular Disorders: No Hx Family Neurologic Disorders: No Hx Family HEENT Disorders: No Hx Family Autoimmune Disorders: No Internal Medicine - H&P: Meds Atorvastatin [Lipitor] 40 mg PO DAILY 09/22/15 [History] Ferrous Sulfate 325 mg PO BID 09/22/15 [History] Furosemide [Lasix] 40 mg PO DAILY 09/22/15 [History] Glimepiride [Amaryl] 4 mg PO DAILY 09/22/15 [History] Potassium Chloride 40 meq PO DAILY 09/22/15 [History] Docusate [Colace] 100 mg PO BID #60 capsule 11/13/15 [Rx] Folic Acid 1 mg PO DAILY #30 tablet 11/01/15 [Rx] Metoprolol [Lopressor] 25 mg PO DAILY 05/14/16 [History] SitaGLIPtin [Januvia] 100 mg PO DAILY 05/14/16 [History] Albuterol Sulfate [Proair Hfa] 2 puff IH Q4H PRN 06/07/16 [History] Aspirin 81 mg PO DAILY 08/13/16 [History] Diltiazem HCl [Diltiazem 24Hr Cd] 120 mg PO DAILY 03/19/17 [History] Metformin HCl [Glucophage] 1,000 mg PO BID 06/13/17 [History] Allergies No Known Allergies Allergy (Verified 03/19/17 10:52) All Systems PM: A 10-system review of systems was performed and is negative for pertinent findings except as documented above in the HPI. - Constitutional Constitutional: no chills, no fever(s), no night sweats - EENT Eyes: no change in vision, no discharge, no pain, no photophobia Nose, mouth and throat: no dysphagia, no nasal discharge, no neck pain, no sore throat - Cardiovascular Cardiovascular ROS IM: no chest pain, no diaphoresis, no dyspnea, no lightheadedness, no palpitations, no syncope - Respiratory Respiratory: no cough, no dyspnea, no wheezing, no excessive phlegm production - Gastrointestinal Gastrointestinal: abdominal pain, bloating, constipation, nausea - Musculoskeletal Musculoskeletal ROS IM: no numbness, no tingling - Integumentary Integumentary IM: no rash, no unusual bruising - Neurological Neurological ROS: no confusion, no convulsions, no focal weakness, no numbness, no tingling, no tremor(s) - Hematologic/Lymphatic Hematologic/Lymphatic: no easy bruising - Constitutional Vitals: Temp Pulse Resp BP Pulse Ox 97.6 F 85 16 154/94 96 06/13/17 10:40 06/13/17 14:22 06/13/17 14:47 06/13/17 14:47 06/13/17 14:22 General appearance: Present: A&O X 3, answers questions appropriately - Head Head exam: Present: atraumatic, normocephalic - Eye Eye exam: Present: PERRL, conjuntiva pink, sclera anicteric Pupils: Present: PERRL - Neck Neck exam general surgery: Present: supple, trachea midline. Absent: lymphadenopathy - Respiratory Respiratory exam: Present: CTAB. Absent: accessory muscle use, rales, rhonchi, wheezes - Cardiovascular Cardiovascular exam: Present: RRR, +S1, +S2. Absent: diastolic murmur, gallop, rubs, systolic murmur - GI/Abdominal GI/Abdominal exam: Present: distended, firm, normal bowel sounds, no peritoneal signs. Absent: tenderness - Extremities Exam Extremities exam: Present: warm, radial pulses palpable and symetrical. Absent : calf tenderness, cyanotic, pedal edema - Neurological Exam Neurological exam: Present: CN II-XII intact, oriented X3, no focal deficits. Absent: pronater drift, facial droop, speech deficit Internal Med - H&P Results - Labs CBC & Chem 7: 06/13/17 11:00 06/13/17 11:00 - Diagnostic Studies Other Images Additional comments: Abdomen/Pelvis CT 06/13/17 10:46 IMPRESSION: 1. Multiple mildly dilated loops of small bowel with relative decompression of the terminal ileum suggestive of a partial obstruction or ileus. Degree of distention has slightly increased since the exam of May 15, 2017. 2. Persistent presacral soft tissue thickening and inflammation, possibly secondary to prior surgery/radiation. 3. Status post partial colectomy and APR with right midabdominal colostomy. 4. Persistent diffuse urinary bladder wall thickening with hyperdense material within the lumen which may represent calcification. RECOMMENDATIONS: 1. D/ / 06/13/2017 12:34:37 Terrence Grande MD / neel Interpreting Provider: Terrence Grande MD <Jer Beckman H - Last Filed: 06/13/17 19:54> Date of Encounter: 06/13/17 Internal Medicine - H&P: HPI History of present illness: Mr. Mccain is a 71 year old male All Systems PM: A 10-system review of systems was performed and is negative for pertinent findings except as documented above in the HPI. - Constitutional Vitals: Temp Pulse Resp BP Pulse Ox 97.6 F 85 16 154/94 96 06/13/17 10:40 06/13/17 14:22 06/13/17 14:47 06/13/17 14:47 06/13/17 14:22 Internal Med - H&P Results - Labs CBC & Chem 7: 06/13/17 11:00 06/13/17 11:00 - Attending Attestation 1. Severe abdominal pain and dehydration secondary to ileus versus partial small bowel obstruction History of small bowel obstructions in the past Keep nothing by mouth, NG tube to suction, IV fluids, morphine as needed for pain and Zofran as needed for nausea Consult surgery if not improving 2. Lactic acidosis which is chronic 3. History of colon cancer status post resection, stable 4. Diabetes type 2 not insulin-dependent, may use insulin sliding scale low dose while nothing by mouth 5. History of atrial fibrillation not on anticoagulation Protonix IV for GI prophylaxis and Lovenox for DVT prophylaxis. The patient will be admitted as inpatient, expected to stay more than 2 midnights. Full code, time spent on this admission 40 minutes. For this encounter, I have reviewed the [facility] or PA documentation, treatment plan, and medical decision making; and I have had face to face time with this patient.
[2017-06-13] MEDS: 0.9 % Sodium Chloride 1,000 ML IVC SCH (15:56)
[2017-06-13] MEDS: *HR* Morphine 2 MG/ML SYRINGE IVP PRN ×2 (15:56→21:46)
[2017-06-13] MEDS: *HR* Metoprolol 5 MG/5 ML VIAL IVP SCH (18:37)
[2017-06-13] MEDS: Insulin LISPRO 300 UNITS/3 ML VIAL SQ SCH (18:38)
[2017-06-14] MEDS: Insulin LISPRO 300 UNITS/3 ML VIAL SQ SCH ×4 (01:07→19:17)
[2017-06-14] MEDS: *HR* Metoprolol 5 MG/5 ML VIAL IVP SCH ×4 (01:16→19:18)
[2017-06-14] MEDS: 0.9 % Sodium Chloride 1,000 ML IVC SCH ×2 (01:18→12:06)
[2017-06-14] MEDS: *HR* Enoxaparin 40 MG/0.4 ML SYRINGE SQ SCH (06:40)
[2017-06-14 06:44] LABS: Basophils % 0.5 %; Eosinophils # 0.1 K/mcL (0.0-0.6); Eosinophils % 1.5 %; Hematocrit 35.8 % (37.5-50.1); Hemoglobin 11.4 g/dL (12.9-16.9); Immature Granulocytes % 0.3 % (0-4); Lymphocytes # 0.8 K/mcL (0.6-4.6); Lymphocytes % 10.6 %; Mean Corpuscular HGB Conc 31.8 g/dL (31.6-35.5); Mean Corpuscular Hemoglobin 29.6 pg (28.0-33.3); Monocytes # 0.7 K/mcL (0.0-1.3); Monocytes % 9.4 %; Neutrophils # 5.9 K/mcL (1.6-8.9); Platelet Count 192 K/mcL (140-400); Red Blood Count 3.85 M/mcL (4.19-5.50); Red Cell Distribution Width 14.8 % (11.5-14.5); Segmented Neutrophils % 77.7 %
[2017-06-14 06:58] LABS: BUN/Creatinine Ratio 16 (6-26); Blood Urea Nitrogen 15 mg/dL (8-26); Calcium 8.6 mg/dL (8.6-10.8); Carbon Dioxide 27 mEq/L (19-29); Chloride 105 mEq/L (98-109); Glucose 131 mg/dL (70-99); Osmolality,Calculated 295 (280-300); Potassium 3.8 mEq/L (3.5-4.5); Sodium 141 mEq/L (136-145); eGFR For African Americans > 60 (> 60); eGFR For Non-African Americans > 60 (> 60)
[2017-06-14] MEDS: Diltiazem CD (24hr) 120 MG CAPSULE PO SCH (08:44)
[2017-06-14] MEDS: Pantoprazole 40 MG VIAL IVP SCH (08:44)
[2017-06-14] MEDS: *HR* Morphine 2 MG/ML SYRINGE IVP PRN (08:53)
--- NOTE | 2017-06-14 09:39 | Internal Med Progress Note ---
Date of Encounter: 06/14/17 Time of Encounter: 09:37 - Assessment and plan (1) Small bowel obstruction Current Visit: Yes Status: Acute Assessment and plan: Patient presented with nausea, vomiting and abdominal pain. CT abdomen/pelvis shows changes suggestive of partial small bowel obstruction/ileus. Continue conservative medical management with bowel rest, IV hydration, nasal gastric tube to low intermittent wall suction, supportive care with when necessary antiemetics and pain control. Surgery consult for further recommendations due to history of partial colon resection and colostomy due to colon cancer. (2) Colon cancer Current Visit: Yes Status: Inactive Assessment and plan: Status post partial colon resection and right lower colostomy. Qualifiers: Colon location: unspecified part of colon Qualified Code(s): C18.9 - Malignant neoplasm of colon, unspecified (3) Atrial fibrillation Current Visit: Yes Status: Chronic Assessment and plan: Patient has documented history of atrial fibrillation, not noted to be on chronic anticoagulation. Continue rate control medications. Qualifiers: Atrial fibrillation type: paroxysmal Qualified Code(s): I48.0 - Paroxysmal atrial fibrillation (4) Diabetes mellitus Current Visit: Yes Status: Chronic Assessment and plan: Accu-Chek blood glucose monitoring with sliding scale insulin. Currently nothing by mouth. 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 Nasogastric tube with minimal output. No nausea. Continues to have stool output in colostomy bag. Reports feeling hungry. - Constitutional Vitals: Temp Pulse Resp BP Pulse Ox 97.8 F 73 18 122/81 92 06/14/17 07:44 06/14/17 07:44 06/14/17 07:44 06/14/17 07:44 06/14/17 07:44 General appearance: Present: A&O X 3, answers questions appropriately - ENT Additional comments: Nasogastric tube to wall suction, with very minimal output. - Respiratory Respiratory exam: Present: CTAB. Absent: accessory muscle use, rales, rhonchi, wheezes - Cardiovascular Cardiovascular exam: Present: irregular rhythm, +S1, +S2. Absent: diastolic murmur, gallop, rubs, systolic murmur - GI/Abdominal GI/Abdominal exam: Present: hyperactive bowel sounds, soft (Tenderness in left lower and central abdomen. Right lower colostomy intact with dark greenish stool.), no peritoneal signs. Absent: distended, tenderness - Extremities Exam Extremities exam: Present: full ROM, pedal edema, warm, radial pulses palpable and symetrical. Absent: calf tenderness, cyanotic Internal Medicine: Result - Labs CBC & Chem 7: 06/14/17 05:38 06/14/17 05:38 Labs: Short CBC 06/14/17 Range/Units 05:38 WBC 7.6 (4.3-11.1) K/mcL Hgb 11.4 L (12.9-16.9) g/dL Hct 35.8 L (37.5-50.1) % Plt Count 192 (140-400) K/mcL Neutrophils # 5.9 (1.6-8.9) K/mcL BMP 06/14/17 05:38 Sodium 141 Potassium 3.8 Chloride 105 Carbon Dioxide 27 BUN 15 Creatinine 0.91 Glucose 131 H Calcium 8.6 - ABG Interpretation ABG results: PT/INR, D-dimer PT 12.4 Seconds (9.4-12.1) H 06/13/17 11:00 Consult Discharge Plan - Plan Referrals: Guillermo Garibay MD [Primary Care Provider] -
--- NOTE | 2017-06-14 10:35 | General Surgery Consult Note ---
<Andrez Davis - Last Filed: 06/14/17 18:08> Date of Encounter: 06/14/17 Time of Encounter: 10:31 Assessment and Plan (1) Small bowel obstruction Current Visit: Yes Status: Acute CT abd and pelvis demonstrates findings consistent with a partial SBO Patient has been responding well to conservative therapy. IV fluids @ 100 Supportive care with pain control Encouraged ICS and ambulation TID. On exam today, BS present with stool and flatus. Clear liquid diet. Sips only. Clamp NGT. No acute surgical intervention is required at this time. No further imaging. Reevaluate tomorrow morning (2) Abdominal pain Current Visit: No Status: Acute See above. Qualifiers: Abdominal location: right upper quadrant Qualified Code(s): R10.11 - Right upper quadrant pain (3) Atrial fibrillation Current Visit: Yes Status: Chronic On diltiazem and metoprolol. Medicine managing. Qualifiers: Atrial fibrillation type: paroxysmal Qualified Code(s): I48.0 - Paroxysmal atrial fibrillation (4) Diabetes mellitus Current Visit: Yes Status: Chronic Defer to medicine. Qualifiers: Diabetes mellitus type: type 2 Diabetes mellitus complication status: with unspecified complications Diabetes mellitus fdc insulin use: without fdc use Qualified Code(s): E11.8 - Type 2 diabetes mellitus with unspecified complications (5) Hypertension Current Visit: Yes Status: Chronic Well controlled. Medicine managing. Qualifiers: Hypertension type: essential hypertension Qualified Code(s): I10 - Essential (primary) hypertension (6) CHF (congestive heart failure) Current Visit: Yes Status: Chronic Management per medicine Qualifiers: Congestive heart failure type: diastolic Congestive heart failure chronicity: chronic Qualified Code(s): I50.32 - Chronic diastolic (congestive ) heart failure (7) DVT prophylaxis Current Visit: No Status: Acute Lovenox. History of Present Illness Consult date: 06/14/17 Reason for consult: other (SBO) Requesting physician: Charla Quiñones History of present illness: Mr. Mccain is a very pleasant 71-year-old male with past medical history of hypertension, type 2 diabetes, atrial fibrillation, colon cancer, status post colectomy, COPD and recurrent small bowel obstructions who presents to the [facility] emergency department yesterday with a chief complaint of abdominal pain for duration of one day. He states that he was eating breakfast Saturday morning and suddenly experienced sharp abdominal pain and increasing distention. Patient took his laxatives without relief. The pain was localized in his left lower quadrant has become generalized in nature. At that time, he noticed that there is no flatus or bowel movements in his colostomy bag. He subsequently went to the ED and on arrival, vital signs are stable and notable labs showed a lactic acid of 4.7. CT of the abdomen and pelvis demonstrates findings consistent with a partial small bowel obstruction versus ileus and the ED placed an NG tube. Mr. Mccain was admitted via the hospital service to and started IV hydration, nothing by mouth, PPI, supportive care, pain control and placed a surgery consult for further recommendations. On evaluation, patient states that he had small bowel obstructions in March 2017, January 2017 and September 2016 that resolved with conservative therapy. Pertinent surgical history with colostomy placement 25 years ago, colectomy due to rectal cancer and a colostomy revision one year ago. Since his admission, patient has had bowel movements and flatus in his colostomy bag. Abdominal distention has improved but still has generalized abdominal pain. He denies any headaches, chest pain, shortness of breath, dysuria, hematochezia, melena, motion edema, new joint pain, rashes, fevers or change in mood. We will continue to follow Mr. Mccain and offer recommendations as appropriate. Past Med Surg Social Fam HX - Past Medical History Medical history: cancer, diabetes, hyperlipidemia, hypertension, other Psychiatric history: no psych history - Past Surgical History Surgical History: cholecystectomy (open), colectomy (transverse and descending colectomy with RUQ colostomy, colonoscopy with polypectomy), colostomy, other ( bladder stone removed) - Social History Smoking Status: Former smoker Smokeless Tobacco Status: Yes Alcohol use: none Drug use: none - Family History Father Adopted: No Living Status: Hx Family Cardiac Disorders: Yes Hx Family Respiratory Disorders: No Hx Family Cancer: No Hx Family GI Disorders: No Hx Family Endocrine Disorder: No Hx Family Neuromuscular Disorders: No Hx Family Neurologic Disorders: No Hx Family HEENT Disorders: No Hx Family Autoimmune Disorders: No Medications and Allergies Atorvastatin [Lipitor] 40 mg PO DAILY 09/22/15 [History] Ferrous Sulfate 325 mg PO BID 09/22/15 [History] Furosemide [Lasix] 40 mg PO DAILY 09/22/15 [History] Glimepiride [Amaryl] 4 mg PO DAILY 09/22/15 [History] Potassium Chloride 40 meq PO DAILY 09/22/15 [History] Docusate [Colace] 100 mg PO BID #60 capsule 09/30/15 [Rx] Folic Acid 1 mg PO DAILY #30 tablet 11/01/15 [Rx] Metoprolol [Lopressor] 25 mg PO DAILY 05/14/16 [History] SitaGLIPtin [Januvia] 100 mg PO DAILY 05/14/16 [History] Albuterol Sulfate [Proair Hfa] 2 puff IH Q4H PRN 06/07/16 [History] Aspirin 81 mg PO DAILY 08/13/16 [History] Diltiazem HCl [Diltiazem 24Hr Cd] 120 mg PO DAILY 03/19/17 [History] Metformin HCl [Glucophage] 1,000 mg PO BID 06/13/17 [History] Allergies No Known Allergies Allergy (Verified 03/19/17 10:52) Review of Systems All systems PM: A 10-system review of systems was performed and is negative for pertinent findings except as documented above in the HPI. General Surgery Exam Initial Vital Signs Temp Pulse Resp BP Pulse Ox 97.6 F 79 18 146/81 98 06/13/17 10:40 06/13/17 10:40 06/13/17 10:40 06/13/17 10:40 06/13/17 10:40 - General physical appearance no distress, obese - Eyes normal ocular movement - ENT normal mucosa (NGT present), atraumatic, normocephalic - Neck trachea midline - Respiratory normal expansion, normal respiratory effort, clear to auscultation - Cardiovascular Cardiovascular exam: Present: RRR - Abdomen Abdomen general surgery: Present: bowel sounds present, tender, surgical scars ( midline, RLQ), wound (Colosotomy present in RUQ with stool present) Abdominal Tenderness: Present: RLQ - Integumentary Integumentary general surgery: Present: warm and dry - Neurologic Present: CN 2-12 grossly intact - Psychiatric Psychiatric general surgery: Present: appropriate, oriented to person, oriented to place, oriented to time, speech is normal, memory intact Exam Initial Vital Signs Temp Pulse Resp BP Pulse Ox 97.6 F 79 18 146/81 98 06/13/17 10:40 06/13/17 10:40 06/13/17 10:40 06/13/17 10:40 06/13/17 10:40 Results - Labs 06/14/17 05:38 06/14/17 05:38 Abnormal lab results RBC 3.85 M/mcL (4.19-5.50) L 06/14/17 05:38 Hgb 11.4 g/dL (12.9-16.9) L 06/14/17 05:38 Hct 35.8 % (37.5-50.1) L 06/14/17 05:38 RDW 14.8 % (11.5-14.5) H 06/14/17 05:38 PT 12.4 Seconds (9.4-12.1) H 06/13/17 11:00 APTT 39.8 Seconds (26.0-36.0) H 06/13/17 11:00 Glucose 131 mg/dL (70-99) H 06/14/17 05:38 POC Glucose 123 (58-89) H 06/14/17 05:33 AST 37 Units/L (5-34) H 06/13/17 11:00 Albumin 3.3 g/dL (3.5-5.0) L 06/13/17 11:00 Globulin 4.4 g/dL (2.4-3.5) H 06/13/17 11:00 Albumin/Globulin Ratio 0.8 (1.1-2.2) L 06/13/17 11:00 Diabetes panel 06/14/17 Range/Units 05:38 Sodium 141 (136-145) mEq/L Potassium 3.8 (3.5-4.5) mEq/L Chloride 105 (98-109) mEq/L Carbon Dioxide 27 (19-29) mEq/L BUN 15 (8-26) mg/dL Creatinine 0.91 (0.72-1.25) mg/dL Glucose 131 H (70-99) mg/dL Calcium 8.6 (8.6-10.8) mg/dL Calcium panel 06/14/17 Range/Units 05:38 Calcium 8.6 (8.6-10.8) mg/dL Pituitary panel 06/14/17 Range/Units 05:38 Sodium 141 (136-145) mEq/L Potassium 3.8 (3.5-4.5) mEq/L Chloride 105 (98-109) mEq/L Carbon Dioxide 27 (19-29) mEq/L BUN 15 (8-26) mg/dL Creatinine 0.91 (0.72-1.25) mg/dL Glucose 131 H (70-99) mg/dL Calcium 8.6 (8.6-10.8) mg/dL Adrenal panel 06/14/17 Range/Units 05:38 Sodium 141 (136-145) mEq/L Potassium 3.8 (3.5-4.5) mEq/L Chloride 105 (98-109) mEq/L Carbon Dioxide 27 (19-29) mEq/L BUN 15 (8-26) mg/dL Creatinine 0.91 (0.72-1.25) mg/dL Glucose 131 H (70-99) mg/dL Calcium 8.6 (8.6-10.8) mg/dL All other labs normal. Consult Discharge Plan - Plan Referrals: Guillermo gonsales MD [Primary Care Provider] - 06/24/17 4:00 pm <Samaria Yu - Last Filed: 06/15/17 19:20> Date of Encounter: 06/14/17 Time of Encounter: 17:20 Assessment and Plan (1) Partial small bowel obstruction Current Visit: No Status: Acute patient with PSBO - will treat conservatively with ngt decompression, ngt clamped earlier today as pt had flatus and stool in ostomy appliance but his LLQ isnt really improved and worsens when he tries to drink clears. will place back to LIWS and only ice chips serial abdominal exams prn pain contorl History of Present Illness History of present illness: Patient well known to surgical service. He has frequent sbo/psbo. He had diffuse and more so LLQ abdominal pain for < 24 hrs and presented to ED. He had nausea but without emesis. Decreased flatus and stool in colostomy appliance compared to normal. Past Med Surg Social Fam HX - Past Medical History Source: patient Review of Systems All systems PM: reviewed and no additional remarkable complaints except as stated All systems PM: A 10-system review of systems was performed and is negative for pertinent findings except as documented above in the HPI. General Surgery Exam Initial Vital Signs Temp Pulse Resp BP Pulse Ox 97.6 F 79 18 146/81 98 06/13/17 10:40 06/13/17 10:40 06/13/17 10:40 06/13/17 10:40 06/13/17 10:40 - General physical appearance well developed, well nourished, no distress, obese - Eyes PERRL, normal ocular movement - ENT normal mucosa, normocephalic, Other (rhinophymosis) - Neck trachea midline - Respiratory normal expansion, clear to auscultation - Cardiovascular Cardiovascular exam: Present: RRR - Abdomen Abdomen general surgery: Present: bowel sounds present, soft, tender. Absent: distended, guarding, rebound Abdominal Tenderness: Present: LLQ - Integumentary Integumentary general surgery: Present: warm and dry - Neurologic Present: CN 2-12 grossly intact - Musculoskeletal Present: normal posture - Psychiatric Psychiatric general surgery: Present: A&Ox3, speech is normal - Additional Findings colostomy with flatus and stool in bag Exam Initial Vital Signs Temp Pulse Resp BP Pulse Ox 97.6 F 79 18 146/81 98 06/13/17 10:40 06/13/17 10:40 06/13/17 10:40 06/13/17 10:40 06/13/17 10:40 Results - Labs 06/14/17 05:38 06/14/17 05:38 Abnormal lab results RBC 3.85 M/mcL (4.19-5.50) L 06/14/17 05:38 Hgb 11.4 g/dL (12.9-16.9) L 06/14/17 05:38 Hct 35.8 % (37.5-50.1) L 06/14/17 05:38 RDW 14.8 % (11.5-14.5) H 06/14/17 05:38 PT 12.4 Seconds (9.4-12.1) H 06/13/17 11:00 APTT 39.8 Seconds (26.0-36.0) H 06/13/17 11:00 Glucose 131 mg/dL (70-99) H 06/14/17 05:38 POC Glucose 140 (58-89) H 06/15/17 17:13 AST 37 Units/L (5-34) H 06/13/17 11:00 Albumin 3.3 g/dL (3.5-5.0) L 06/13/17 11:00 Globulin 4.4 g/dL (2.4-3.5) H 06/13/17 11:00 Albumin/Globulin Ratio 0.8 (1.1-2.2) L 06/13/17 11:00 Ur Specimen Adequacy See below A 06/14/17 15:02 Urine Clarity Turbid (Clear) A 06/14/17 15:02 Ur Specific [place] 1.030 (1.010-1.025) H 06/14/17 15:02 Urine Protein >=1000 mg/dL (Neg-Trace) H 06/14/17 15:02 Urine Ketones Trace mg/dL (Negative) H 06/14/17 15:02 Urine Blood Large (Negative) H 06/14/17 15:02 Ur Leukocyte Esterase Large (Negative) H 06/14/17 15:02 Amorphous Sediment Many (Few) H 06/14/17 15:02 Ur Culture Indicated? YES (NO) A 06/14/17 15:02 All other labs normal. - Imaging CT scan - abdomen: report reviewed, image reviewed CT scan - pelvis: report reviewed, image reviewed - Attending Attestation I examined this patient and my medical decision-making was reviewed with the Resident Physician. I agree with the documented findings, disposition and treatment plan as described except to the extent set forth below. PSBO
[2017-06-14 15:45] LABS: Bilirubin,Urine Negative (Negative); Blood,Urine Large (Negative); Clarity,Urine Turbid (Clear); Glucose,Urine (UA) Normal (Normal); Ketones,Urine Trace mg/dL (Negative); Leukocyte Esterase,Urine Large (Negative); Nitrite,Urine Negative (Negative); PH,Urine 7.5 pH Units (5.0-8.0); Protein,Urine >=1000 mg/dL (Neg-Trace); Urobilinogen,Urine Normal (Normal)
[2017-06-14 15:47] LABS: Color,Urine Brown (Yellow)
[2017-06-14 15:50] LABS: Amorphous Sediment,Urine Many (Few)
[2017-06-14 15:51] LABS: Bacteria,Urine Present per hpf (None-Few); RBC,Urine Present per hpf (0-3); Squamous Epithelial Cell,Urine Present per lpf (None-Few); WBC,Urine Present per hpf (0-3)
[2017-06-15] MEDS: Insulin LISPRO 300 UNITS/3 ML VIAL SQ SCH ×4 (00:25→17:41)
[2017-06-15] MEDS: *HR* Metoprolol 5 MG/5 ML VIAL IVP SCH ×4 (00:27→18:04)
[2017-06-15] MEDS: 0.9 % Sodium Chloride 1,000 ML IVC SCH ×2 (04:08→17:41)
[2017-06-15] MEDS: *HR* Enoxaparin 40 MG/0.4 ML SYRINGE SQ SCH (05:40)
[2017-06-15] MEDS: *HR* Morphine 2 MG/ML SYRINGE IVP PRN (08:29)
[2017-06-15] MEDS: Pantoprazole 40 MG VIAL IVP SCH (08:29)
[2017-06-15] MEDS: Diltiazem CD (24hr) 120 MG CAPSULE PO SCH (08:30)
--- NOTE | 2017-06-15 12:42 | Internal Med Progress Note ---
Date of Encounter: 06/15/17 Time of Encounter: 12:40 - Assessment and plan (1) Small bowel obstruction Current Visit: Yes Status: Acute Assessment and plan: Patient presented with nausea, vomiting and abdominal pain. CT abdomen/pelvis shows changes suggestive of partial small bowel obstruction/ileus. Continue conservative medical management with bowel rest, IV hydration, discontinue nasal gastric tube today as only minimal drainage is noted; supportive care with when necessary antiemetics and pain control. Surgery consulted for further recommendations due to history of partial colon resection and colostomy due to colon cancer, appreciate input; will start diet per recommendations; (2) Colon cancer Current Visit: Yes Status: Inactive Qualifiers: Colon location: unspecified part of colon Qualified Code(s): C18.9 - Malignant neoplasm of colon, unspecified (3) Atrial fibrillation Current Visit: Yes Status: Chronic Assessment and plan: Patient has documented history of atrial fibrillation, not noted to be on chronic anticoagulation. Continue rate control medications. Qualifiers: Atrial fibrillation type: paroxysmal Qualified Code(s): I48.0 - Paroxysmal atrial fibrillation (4) Diabetes mellitus Current Visit: Yes Status: Chronic Assessment and plan: Accu-Chek blood glucose monitoring with sliding scale insulin. Currently nothing by mouth. Qualifiers: Diabetes mellitus type: type 2 Diabetes mellitus complication status: with unspecified complications Diabetes mellitus exterminator helper insulin use: without exterminator helper use Qualified Code(s): E11.8 - Type 2 diabetes mellitus with unspecified complications (5) Hypertension Current Visit: Yes Status: Chronic Qualifiers: Hypertension type: essential hypertension Qualified Code(s): I10 - Essential (primary) hypertension (6) CHF (congestive heart failure) Current Visit: Yes Status: Chronic Qualifiers: Congestive heart failure type: diastolic Congestive heart failure chronicity: chronic Qualified Code(s): I50.32 - Chronic diastolic (congestive ) heart failure - Subjective Interval history: Reports feeling better; improved abdominal pain and nausea; NG tube noted with no output; has stool output; - Constitutional Vitals: Temp Pulse Resp BP Pulse Ox 97.5 F L 91 18 138/75 92 06/15/17 07:09 06/15/17 07:09 06/15/17 07:09 06/15/17 07:09 06/15/17 07:09 General appearance: Present: A&O X 3, answers questions appropriately - Respiratory Respiratory exam: Present: CTAB. Absent: accessory muscle use, rales, rhonchi, wheezes - Cardiovascular Cardiovascular exam: Present: RRR, +S1, +S2. Absent: diastolic murmur, gallop, rubs, systolic murmur - GI/Abdominal GI/Abdominal exam: Present: normal bowel sounds, soft (mild tenderness in LUQ and LLQ; right sided colostomy bag, currently empty), no peritoneal signs. Absent: distended, tenderness Internal Medicine: Result - Labs CBC & Chem 7: 06/14/17 05:38 06/14/17 05:38 Labs: Urine 06/14/17 Range/Units 15:02 Urine Color Brown (Yellow) Urine Clarity Turbid A (Clear) Urine pH 7.5 (5.0-8.0) pH Units Ur Specific [place] 1.030 H (1.010-1.025) Urine Protein >=1000 H (Neg-Trace) mg/dL Urine Glucose (UA) Normal (Normal) mg/dL - ABG Interpretation ABG results: PT/INR, D-dimer PT 12.4 Seconds (9.4-12.1) H 06/13/17 11:00 Consult Discharge Plan - Plan Referrals: Guillermo Garibay MD [Primary Care Provider] - 06/24/17 4:00 pm
--- NOTE | 2017-06-15 18:24 | General Surgery Progress Note ---
Date of Encounter: 06/15/17 Time of Encounter: 14:05 - Assessment and Plan (1) Partial small bowel obstruction Current Visit: No Status: Acute patient had nursing remove his ngt last night or he states he was leaving abdominal pain is much less today in LLQ ok start sips clears and see how he tolerates colostomy with air and flatus Subjective Patient reports: no new complaints, feels better, still having pain, pain is less, flatus, bowel movement, afebrile Objective Vital Signs - Last 8 Hours Temp Pulse Resp BP Pulse Ox 06/15/17 15:11 97.4 F L 75 16 137/84 95 Intake and Output 06/15/17 06/15/17 06/15/17 07:59 15:59 23:59 Intake Total 200 / 200 1000 / 1000 Output Total 0 / 0 325 / 325 Balance 200 / 200 675 / 675 Intake: IV Fluids 200 / 200 1000 / 1000 0.9 % Sodium Chloride 1, 200 / 200 1000 / 1000 000 ML @ 100 mls/hr IVC . Q10H [facility] Rx#:[id number] Oral 0 / 0 0 / 0 Output: Urine 0 / 0 Stool 0 / 0 175 / 175 Gastric Drainage 0 / 0 150 / 150 Other: Meal NPO Percent of Meal Consumed 0% # Urine Diapers 1 0 Weight 110.3 kg Blood Glucose* 136 120 140 Patient Weight 06/15/17 23:59 Weight 110.3 kg - General physical appearance well developed, well nourished, no distress, obese - Eyes PERRL, normal ocular movement - ENT normal mucosa, normocephalic - Neck Neck exam: trachea midline - Respiratory normal expansion, clear to auscultation - Cardiovascular Cardiovascular exam: Present: RRR - Abdomen Abdomen: Present: bowel sounds present, soft, tender (LLQ). Absent: distended, guarding, rebound Additional Comments: colostomy with air and stool - Integumentary no rash, no growths - Neurologic CN 2-12 grossly intact - Musculoskeletal normal posture - Psychiatric oriented to time, oriented to person, oriented to place, speech is normal, memory intact - Labs 06/14/17 05:38 06/14/17 05:38 Consult Discharge Plan - Plan Referrals: Guillermo Garibay MD [Primary Care Provider] - 06/24/17 4:00 pm
[2017-06-16] MEDS: Insulin LISPRO 300 UNITS/3 ML VIAL SQ SCH ×4 (00:15→17:32)
[2017-06-16] MEDS: *HR* Metoprolol 5 MG/5 ML VIAL IVP SCH ×4 (00:16→17:55)
[2017-06-16] MEDS: 0.9 % Sodium Chloride 1,000 ML IVC SCH (05:35)
[2017-06-16] MEDS: *HR* Enoxaparin 40 MG/0.4 ML SYRINGE SQ SCH (05:36)
[2017-06-16] MEDS: Pantoprazole 40 MG VIAL IVP SCH (08:46)
[2017-06-16] MEDS: Diltiazem CD (24hr) 120 MG CAPSULE PO SCH (08:46)
[2017-06-16] MEDS: *HR* Morphine 2 MG/ML SYRINGE IVP PRN (08:52)
--- NOTE | 2017-06-16 11:57 | General Surgery Progress Note ---
Date of Encounter: 06/16/17 Time of Encounter: 11:55 - Assessment and Plan (1) Partial small bowel obstruction Current Visit: No Status: Acute patient with PSBO - tolerated clears, advance to fulls Subjective Patient reports: no new complaints, feels better, tolerating liquids well, flatus, bowel movement, other (patient states he feels back to normal, no abdominal pain) Objective Vital Signs - Last 8 Hours Temp Pulse Resp BP Pulse Ox 06/16/17 11:30 98.0 F 71 16 131/87 93 06/16/17 07:06 98.3 F 88 16 160/74 96 Intake and Output 06/15/17 06/16/17 06/16/17 23:59 07:59 15:59 Intake Total 250 / 250 1100 / 1100 Output Total 200 / 200 0 / 0 Balance 50 / 50 1100 / 1100 Intake: IV Fluids 1100 / 1100 0.9 % Sodium Chloride 1, 1000 / 1000 000 ML @ 100 mls/hr IVC . Q10H [facility] Rx#:[id number] Rocephin 1,000 MG In 100 / 100 Dextrose 5% (Minibag+) 100 ML 100 ML @ 200 mls/ hr IVPB Q24H [facility] Rx#: [id number] Oral 250 / 250 0 / 0 Output: Urine 0 / 0 Stool 200 / 200 Other: # Urine Diapers 1 Weight 110.2 kg Blood Glucose* 107 108 122 Patient Weight 06/16/17 23:59 Weight 110.2 kg - General physical appearance well developed, well nourished, no distress, obese - Eyes PERRL, normal ocular movement - ENT normal mucosa, normocephalic - Neck Neck exam: trachea midline - Respiratory normal respiratory effort, clear to auscultation - Cardiovascular Cardiovascular exam: Present: RRR - Abdomen Abdomen: Present: soft, non tender. Absent: guarding, rebound - Integumentary no rash - Neurologic CN 2-12 grossly intact - Musculoskeletal normal posture - Psychiatric oriented to time, memory intact - Labs 06/14/17 05:38 06/14/17 05:38 Vital Signs Temp Pulse Resp BP Pulse Ox 06/16/17 11:30 98.0 F 71 16 131/87 93 06/16/17 07:06 98.3 F 88 16 160/74 96 06/16/17 03:23 98.2 F 73 18 131/68 94 07/29/17 23:31 98.0 F 76 18 145/83 94 06/15/17 18:54 98.1 F 74 18 135/84 95 06/15/17 15:11 97.4 F L 75 16 137/84 95 Intake and Output 06/15/17 06/16/17 06/16/17 23:59 07:59 15:59 Intake Total 250 / 250 1100 / 1100 Output Total 200 / 200 0 / 0 Balance 50 / 50 1100 / 1100 Intake: IV Fluids 1100 / 1100 0.9 % Sodium Chloride 1, 1000 / 1000 000 ML @ 100 mls/hr IVC . Q10H [facility] Rx#:[id number] Rocephin 1,000 MG In 100 / 100 Dextrose 5% (Minibag+) 100 ML 100 ML @ 200 mls/ hr IVPB Q24H [facility] Rx#: [id number] Oral 250 / 250 0 / 0 Output: Urine 0 / 0 Stool 200 / 200 Other: # Urine Diapers 1 Weight 110.2 kg Blood Glucose* 107 108 122 Patient Weight 06/16/17 23:59 Weight 110.2 kg Consult Discharge Plan - Plan Referrals: Guillermo Garibay MD [Primary Care Provider] - 06/24/17 4:00 pm
--- NOTE | 2017-06-16 12:13 | Internal Med Progress Note ---
Date of Encounter: 06/16/17 Time of Encounter: 11:30 - Assessment and plan (1) UTI (urinary tract infection) Current Visit: Yes Status: Acute Assessment and plan: Urinalysis positive for UTI, urine culture grows Klebsiella oxytoca; patient has h/o- BPH, complicated UTI; continue IV Rocephin. Qualifiers: Urinary tract infection type: acute cystitis Hematuria presence: with hematuria Qualified Code(s): N30.01 - Acute cystitis with hematuria (2) Small bowel obstruction Current Visit: Yes Status: Acute Assessment and plan: Patient presented with nausea, vomiting and abdominal pain. CT abdomen/pelvis shows changes suggestive of partial small bowel obstruction/ileus. Symptoms are currently improving. Start full liquid diet and advance as tolerated. Surgery recommendations appreciated. supportive care with when necessary antiemetics and pain control. (3) Colon cancer Current Visit: Yes Status: Inactive Assessment and plan: Status post partial colon resection and right lower colostomy. Qualifiers: Colon location: unspecified part of colon Qualified Code(s): C18.9 - Malignant neoplasm of colon, unspecified (4) Atrial fibrillation Current Visit: Yes Status: Chronic Assessment and plan: Patient has documented history of atrial fibrillation, not noted to be on chronic anticoagulation. Continue rate control medications. Qualifiers: Atrial fibrillation type: paroxysmal Qualified Code(s): I48.0 - Paroxysmal atrial fibrillation (5) Diabetes mellitus Current Visit: Yes Status: Chronic Assessment and plan: Accu-Chek blood glucose monitoring with sliding scale insulin. Currently nothing by mouth. Qualifiers: Diabetes mellitus type: type 2 Diabetes mellitus complication status: with unspecified complications Diabetes mellitus intermediate frame tender insulin use: without intermediate frame tender use Qualified Code(s): E11.8 - Type 2 diabetes mellitus with unspecified complications (6) Hypertension Current Visit: Yes Status: Chronic Qualifiers: Hypertension type: essential hypertension Qualified Code(s): I10 - Essential (primary) hypertension (7) CHF (congestive heart failure) Current Visit: Yes Status: Chronic Qualifiers: Congestive heart failure type: diastolic Congestive heart failure chronicity: chronic Qualified Code(s): I50.32 - Chronic diastolic (congestive ) heart failure - Subjective Interval history: Reports feeling better; improved abdominal pain and nausea; noted to have flatus and stool output in colostomy bag; - Constitutional Vitals: Temp Pulse Resp BP Pulse Ox 98.0 F 71 16 131/87 93 06/16/17 11:30 06/16/17 11:30 06/16/17 11:30 06/16/17 11:30 06/16/17 11:30 General appearance: Present: A&O X 3, answers questions appropriately - Respiratory Respiratory exam: Present: CTAB. Absent: accessory muscle use, rales, rhonchi, wheezes - Cardiovascular Cardiovascular exam: Present: RRR, +S1, +S2. Absent: diastolic murmur, gallop, rubs, systolic murmur - GI/Abdominal GI/Abdominal exam: Present: normal bowel sounds, soft (right sided colostomy bag with greenish stool output; ), no peritoneal signs. Absent: distended, tenderness Internal Medicine: Result - Labs CBC & Chem 7: 06/14/17 05:38 06/14/17 05:38 - ABG Interpretation ABG results: PT/INR, D-dimer PT 12.4 Seconds (9.4-12.1) H 06/13/17 11:00 Consult Discharge Plan - Plan Referrals: Guillermo Garibay MD [Primary Care Provider] - 06/24/17 4:00 pm
[2017-06-17] MEDS: Insulin LISPRO 300 UNITS/3 ML VIAL SQ SCH ×2 (00:10→08:15)
[2017-06-17] MEDS: *HR* Metoprolol 5 MG/5 ML VIAL IVP SCH ×2 (00:13→05:28)
[2017-06-17] MEDS: *HR* Enoxaparin 40 MG/0.4 ML SYRINGE SQ SCH (05:28)
[2017-06-17] MEDS: Pantoprazole 40 MG VIAL IVP SCH (08:18)
[2017-06-17] MEDS: Diltiazem CD (24hr) 120 MG CAPSULE PO SCH (08:18)
--- NOTE | 2017-06-17 12:47 | General Surgery Progress Note ---
<Colby Solorzano - Last Filed: 06/17/17 12:44> Date of Encounter: 06/17/17 Time of Encounter: 09:30 - Assessment and Plan (1) Partial small bowel obstruction Status: Resolved Patient has started on soft diet. His partial SBO has resolved at this point, so he is OK to D/C from a surgery standpoint. Surgery will sign off at this time. Thank you for involving us in this patient' s care. Please feel free to contact us with any questions. Subjective Patient reports: no new complaints, tolerating liquids well, flatus, bowel movement (to ostomy bag), afebrile Narrative: Patient is tolerating full liquid diet well. He states that he is "back to normal" and that "I'm ready to go home." Objective Vital Signs - Last 8 Hours Temp Pulse Resp BP Pulse Ox 06/17/17 12:01 97.9 F 73 16 155/83 94 06/17/17 07:43 97.9 F 68 16 157/82 92 Intake and Output 06/16/17 06/17/17 06/17/17 23:59 07:59 15:59 Intake Total 1060 / 1060 600 / 600 Output Total 50 / 50 250 / 250 250 / 250 Balance 1010 / 1010 -250 / -250 350 / 350 Intake: IV Fluids 100 / 100 Rocephin 1,000 MG In 100 / 100 Dextrose 5% (Minibag+) 100 ML 100 ML @ 200 mls/ hr IVPB Q24H [facility] Rx#: [id number] Oral 960 / 960 600 / 600 Output: Stool 50 / 50 250 / 250 250 / 250 Other: Meal Dinner Percent of Meal Consumed 100% Stool Consistency liquid liquid soft Stool Color Brown Brown # Voids 1 # Urine Diapers 1 1 1 Weight 111.2 kg Blood Glucose* 124 124 148 Patient Weight 06/17/17 23:59 Weight 111.2 kg - General physical appearance well developed, well nourished, no distress - ENT normal mucosa, atraumatic, normocephalic - Neck Neck exam: trachea midline - Respiratory normal expansion, normal respiratory effort, clear to auscultation - Cardiovascular Cardiovascular exam: Present: RRR - Abdomen Abdomen: Present: bowel sounds present, soft, non tender - Psychiatric speech is normal - Labs 06/14/17 05:38 06/14/17 05:38 Consult Discharge Plan - Plan Referrals: Guillermo Garibay MD [Primary Care Provider] - 06/24/17 4:00 pm Prescriptions: Cephalexin [Keflex] 500 mg PO BID #14 capsule <Samaria Yu - Last Filed: 06/18/17 12:02> Date of Encounter: 06/18/17 Objective Intake and Output 06/17/17 06/18/17 06/18/17 23:59 07:59 15:59 Other: # Urine Diapers 1 - Labs 06/14/17 05:38 06/14/17 05:38 - Attending Attestation Patient was discharged before I had a chance to round on him, Did not see the patient this day
--- NOTE | 2017-06-17 12:49 | Discharge Summary ---
Date of Encounter: 06/17/17 Time of Encounter: 11:30 - Discharge Diagnosis (1) UTI (urinary tract infection) Priority: Primary Status: Acute Qualifiers: Urinary tract infection type: acute cystitis Hematuria presence: with hematuria Qualified Code(s): N30.01 - Acute cystitis with hematuria (2) Small bowel obstruction Priority: Primary Status: Acute (3) Colon cancer Priority: Secondary Status: Inactive Qualifiers: Colon location: unspecified part of colon Qualified Code(s): C18.9 - Malignant neoplasm of colon, unspecified (4) Atrial fibrillation Priority: Secondary Status: Chronic Qualifiers: Atrial fibrillation type: paroxysmal Qualified Code(s): I48.0 - Paroxysmal atrial fibrillation (5) Diabetes mellitus Priority: Secondary Status: Chronic Qualifiers: Diabetes mellitus type: type 2 Diabetes mellitus complication status: with unspecified complications Diabetes mellitus buttermaker continuous churn insulin use: without buttermaker continuous churn use Qualified Code(s): E11.8 - Type 2 diabetes mellitus with unspecified complications (6) Hypertension Priority: Secondary Status: Chronic Qualifiers: Hypertension type: essential hypertension Qualified Code(s): I10 - Essential (primary) hypertension (7) CHF (congestive heart failure) Priority: Secondary Status: Chronic Qualifiers: Congestive heart failure type: diastolic Congestive heart failure chronicity: chronic Qualified Code(s): I50.32 - Chronic diastolic (congestive ) heart failure - Discharge Medications Prescriptions: Cephalexin [Keflex] 500 mg PO BID #14 capsule Home Medications: Atorvastatin [Lipitor] 40 mg PO DAILY 09/22/15 [History] Ferrous Sulfate 325 mg PO BID 09/22/15 [History] Furosemide [Lasix] 40 mg PO DAILY 09/22/15 [History] Glimepiride [Amaryl] 4 mg PO DAILY 09/22/15 [History] Potassium Chloride 40 meq PO DAILY 09/22/15 [History] Docusate [Colace] 100 mg PO BID #60 capsule 09/30/15 [Rx] Folic Acid 1 mg PO DAILY #30 tablet 11/01/15 [Rx] Metoprolol [Lopressor] 25 mg PO DAILY 05/14/16 [History] SitaGLIPtin [Januvia] 100 mg PO DAILY 05/14/16 [History] Albuterol Sulfate [Proair Hfa] 2 puff IH Q4H PRN 06/07/16 [History] Aspirin 81 mg PO DAILY 08/13/16 [History] Diltiazem HCl [Diltiazem 24Hr Cd] 120 mg PO DAILY 03/19/17 [History] Metformin HCl [Glucophage] 1,000 mg PO BID 06/13/17 [History] Cephalexin [Keflex] 500 mg PO BID #14 capsule 06/17/17 [Rx] Allergies/Adverse Reactions: Allergies No Known Allergies Allergy (Verified 03/19/17 10:52) Date of admission: 06/13/17 14:43 Primary care physician: Guillermo Garibay MD Consults: 06/14/17 09:39 Consult to Surgery [CONS] Routine Consulting Provider: [facility] Reason for Consult: Partial SBO, lactic acidosis, h/o- colostomy for colon cancer Call Completed: Yes Discharging clinician: Charla Quiñones Anticipated date of discharge: 06/17/17 - Patient Status Disposition: Home Health Service Condition: Fair Functional capacity at discharge: uses cane/walker Overall status at discharge: patient is progressing back to baseline - Discharge Instructions Follow Up With: Guillermo Garibay MD [Primary Care Provider] - 06/24/17 4:00 pm - Diet and Activity Activity: resume usual activities as tolerated Diet: diabetic diet, low fat, low cholesterol, low salt diet Hospital course: Mr. Mccain is a 71 year old male with history of colon cancer status post partial colon resection and colostomy, was admitted with abdominal pain, nausea and vomiting. CT abdomen/pelvis showed evidence of partial small bowel obstruction. Patient was started on conservative medical management with nasogastric tube to intermittent wall suction, bowel rest, IV hydration, supportive care with when necessary antiemetics and pain control. Surgery was consulted due to history of previous colon surgeries. He improved gradually with decreased nasogastric tube output, presence of flatus and stool output in colostomy. He is currently able to tolerate oral diet and has no complaints. He is medically stable for discharge with outpatient follow-up. - Time Spent with Patient Total time spent providing and/or coordinating discharge services: Greater than 30 minutes (40 min) - Constitutional Vitals: Temp Pulse Resp BP Pulse Ox 97.9 F 73 16 155/83 94 06/17/17 12:01 06/17/17 12:01 06/17/17 12:01 06/17/17 12:01 07/31/17 12:01 General appearance: Present: A&O X 3, answers questions appropriately - Cardiovascular Cardiovascular exam: Present: RRR, +S1, +S2. Absent: diastolic murmur, gallop, rubs, systolic murmur - GI/Abdominal GI/Abdominal exam: Present: normal bowel sounds, soft (liquid stool output in colostomy bag), no peritoneal signs. Absent: distended, tenderness
--- NOTE | 2017-06-17 12:57 | Physician Discharge Referral ---
Home Health/Hosp Referral Info Transfer to: Home Health Attending Provider: Charla Quiñones Provider in Charge Post Discharge: PCP - Diagnosis (1) UTI (urinary tract infection) Status: Acute (2) Small bowel obstruction Status: Acute (3) Colon cancer Status: Inactive (4) Atrial fibrillation Status: Chronic (5) Diabetes mellitus Status: Chronic (6) Hypertension Status: Chronic (7) CHF (congestive heart failure) Status: Chronic - Respiratory Orders Smoking Cessation: Smoking cessation has been advised. For more information, call the [place] Tobacco Quit Line at 7-507-TNFA-NOW. - Diet/Nutrition Diet/Nutrition Orders: Cardiac, No Concentrated Sweets (diabetic) - Activity Activity Orders: Ambulate - Services Needed Following services are medically necessary services: Nursing, Home Health Aide - Transfer Medications Prescriptions: Cephalexin [Keflex] 500 mg PO BID #14 capsule Home Medications: Atorvastatin [Lipitor] 40 mg PO DAILY 09/22/15 [History] Ferrous Sulfate 325 mg PO BID 09/22/15 [History] Furosemide [Lasix] 40 mg PO DAILY 09/22/15 [History] Glimepiride [Amaryl] 4 mg PO DAILY 09/22/15 [History] Potassium Chloride 40 meq PO DAILY 09/22/15 [History] Docusate [Colace] 100 mg PO BID #60 capsule 09/30/15 [Rx] Folic Acid 1 mg PO DAILY #30 tablet 11/01/15 [Rx] Metoprolol [Lopressor] 25 mg PO DAILY 05/14/16 [History] SitaGLIPtin [Januvia] 100 mg PO DAILY 05/14/16 [History] Albuterol Sulfate [Proair Hfa] 2 puff IH Q4H PRN 06/07/16 [History] Aspirin 81 mg PO DAILY 08/13/16 [History] Diltiazem HCl [Diltiazem 24Hr Cd] 120 mg PO DAILY 03/19/17 [History] Metformin HCl [Glucophage] 1,000 mg PO BID 06/13/17 [History] Cephalexin [Keflex] 500 mg PO BID #14 capsule 06/17/17 [Rx] Allergies/Adverse Reactions: Allergies No Known Allergies Allergy (Verified 03/19/17 10:52) Certification: Further, I certify that my clinical findings support that this patient is homebound (i.e. absences from home require considerable and taxing effort and are for medical reasons or jainism services or infrequently or short duration when for other reasons) because: Homebound Reason: Patient requires assistance of a person or device to safely leave home, Leaving home requires considerable and taxing effort due to condition Attestation: My signature below is to certify that this patient is under my care and that I, or nurse practitioner, or a physician's health information assistant working with me, has a face-to -face encounter with this patient.
[2017-06-17] MEDS ORDERED: Insulin LISPRO 300 UNITS/3 ML VIAL SQ SCH ×2 (16:30→21:00)
[2017-06-17 17:21] VITALS: BP 145/79
== END 2017-06-17 17:30 | disposition home health service (06) | DRG 389 ==
LOC: EMEROO 10:36 → 3ANU 10:36
PROVIDERS: ADMIT Internal Medicine; ATTEND Internal Medicine

== ENCOUNTER 2017-06-18 08:50 | Inpatient (IN) ==
--- NOTE | 2017-06-18 09:14 | Emergency Department Note ---
Disposition Clinical Impression: Abdominal pain, H/O small bowel obstruction Disposition: Admitted As Inpatient Condition: Good Referrals: Guillermo Garibay MD [Primary Care Provider] - Forms: Work/School Release, ED Satisfaction Letter Time of Disposition: 10:20 Abdominal Pain HPI - General Chief Complaint: ED Abdominal Pain Stated Complaint: Blocked colostomy Time Seen by Provider: 06/18/17 08:51 Source: patient, EMS Mode of arrival: EMS Limitations: no limitations Nursing Notes Reviewed: Yes Vital Signs Reviewed: Yes - History of Present Illness HPI Narrative: Patient is a 71-year-old male with a past medical history of hypertension, type 2 diabetes, atrial fibrillation, colon cancer, status post colectomy, COPD and recurrent small bowel obstructions who presents to the [facility] emergency department y with a chief complaint "my colostomy is blocked again." Patient states that he was just discharged yesterday for the same complaint. According to patient he has had approximately 7 recurrent small bowel obstructions in the past month with identical symptoms. Patient is complaining of abdominal pain, nausea, no flatus or bowel movements. Denies any fever, vomiting, chest pain, shortness of breath, weakness or any other symptoms/complaints. States he has not eaten any food since yesterday and only drank coffee this morning. Pt Subjective Complaint: abdominal pain, other (blocked colostomy) Onset (ago): Just PLATER BARREL Consistency: constant Location: diffuse Pain Severity: severe Pain Scale: 9 Quality: cramping, fullness Radiation: none Migration to: no migration Improves with: nothing Worsens with: nothing Context: history of similar episodes Associated symptoms: Reports: denies other symptoms, nausea. Denies: vomiting, diarrhea, fever, chills, constipation, dysuria, hematemesis, hematochezia, melena, hematuria, anorexia, syncope Treatments prior to arrival: none - Related Data Home Medications Medication Instructions Recorded Confirmed Atorvastatin [Lipitor] 40 mg PO DAILY 09/22/15 06/18/17 Ferrous Sulfate 325 mg PO BID 09/22/15 06/18/17 Furosemide [Lasix] 40 mg PO DAILY 09/22/15 06/18/17 Glimepiride [Amaryl] 4 mg PO DAILY 09/22/15 06/18/17 Potassium Chloride 40 meq PO DAILY 09/22/15 06/18/17 Metoprolol [Lopressor] 25 mg PO DAILY 05/14/16 06/18/17 SitaGLIPtin [Januvia] 100 mg PO DAILY 05/14/16 06/18/17 Albuterol Sulfate [Proair Hfa] 2 puff IH Q4H PRN 06/07/16 06/18/17 Aspirin 81 mg PO DAILY 08/13/16 06/18/17 Diltiazem HCl [Diltiazem 24Hr Cd] 120 mg PO DAILY 03/19/17 06/18/17 Metformin HCl [Glucophage] 1,000 mg PO BID 06/13/17 06/18/17 Previous Rx's Medication Instructions Recorded Docusate [Colace] 100 mg PO BID #60 capsule 09/30/15 Folic Acid 1 mg PO DAILY #30 tablet 11/01/15 Cephalexin [Keflex] 500 mg PO BID #14 capsule 06/17/17 Allergies Allergy/AdvReac Type Severity Reaction Status Date / Time No Known Allergies Allergy Verified 06/18/17 09:40 All systems ED: reviewed and negative except as stated. Constitutional: Denies: fever, chills, weakness Cardiovascular: Denies: chest pain, palpitations, dyspnea on exertion Respiratory: Denies: cough, dyspnea, wheezes, hemoptysis Gastrointestinal: Reports: abdominal pain, nausea. Denies: vomiting, diarrhea, constipation, hematemesis, melena, hematochezia Genitourinary: Denies: urgency, dysuria, frequency, hematuria Musculoskeletal: Denies: back pain, neck pain Integumentary: Denies: rash Neurological: Denies: weakness Abdominal Pain PMH - Past Medical History Medical history: Reports: cancer, diabetes, hyperlipidemia, hypertension, other Male Surgical History: Reports: cancer surgery, colectomy, colostomy, other Psychiatric history: Reports: no psych history - Social History Smoking status: Former smoker Alcohol use: Reports: none Drug use: Reports: none Physical Exam - General Limitations: no limitations General appearance: alert, in no apparent distress - Head Head exam: normal inspection - Eye Eye exam: Present: normal appearance - ENT ENT exam: normal exam, normal oropharynx, mucous membranes moist - Neck Neck exam: Present: normal inspection, full ROM - Chest Chest inspection: Present: symmetric chest wall rise - Respiratory Respiratory exam: Present: normal lung sounds bilaterally - Cardiovascular Cardiovascular exam: Present: regular rate, normal rhythm, normal heart sounds - Abdominal Exam Abdominal exam: Present: soft, tenderness (Fuse tenderness, surgical scars, Colosotomy present in RUQ, Bowel sounds sounds present.), distention, normal bowel sounds, scar, other (Colostomy noted). Absent: guarding, rebound, rigidity, diminished bowel sounds, trauma, incision, psoas sign, Thomas's sign, Rovsing's sign, ascites, mass, bruit, pulsatile mass - Extremities Exam Extremities exam: Present: normal inspection - Back Exam Back exam: Present: normal inspection, full ROM. Absent: tenderness, CVA tenderness (R), CVA tenderness (L) - Neurological Exam Neurological exam: Present: alert, oriented X3 - Psychiatric Psychiatric exam: Present: normal affect, normal mood - Skin Skin exam: Present: warm, dry, intact, normal color. Absent: rash, cyanosis, diaphoresis Course - Reevaluation(s) Reevaluation #1: Patient is a 71-year-old male with a past medical history of hypertension, type 2 diabetes, atrial fibrillation, colon cancer, status post colectomy, COPD and recurrent small bowel obstructions who presents to the [facility] emergency department y with a chief complaint "my colostomy is blocked again." Patient states that he was just discharged yesterday for the same complaint. According to patient he has had approximately 7 recurrent small bowel obstructions in the past month with identical symptoms. Patient is complaining of abdominal pain, nausea, no flatus or bowel movements. Denies any fever, vomiting, chest pain, shortness of breath, weakness or any other symptoms/complaints. States he has not eaten any food since yesterday and only drank coffee this morning. Colostomy placed by Dr. Rojas. Pt is a nontoxic-appearing 71-year-old male. Vital stable. Afebrile. Alert and oriented 3. Appears in no acute distress. Heart RRR. Lungs CTAB. Abdomen: Diffuse tenderness, distention noted., surgical scars, Colosotomy present in RUQ, Bowel sounds sounds present. No guarding or rebound noted. No peritoneal signs. Back normal inspection, nontender. Neuro no focal neurological deficits noted on exam. Basic labs ordered. Pain and nausea medication ordered. We will consult surgery to discuss if they would like a CT. Discussed case with Dr. Rojas. He states that he would not like a CT and to admit patient to his services. Patient agrees to treatment plan. Dr. Rojas's resident called down to the ED and would like an NG tube placed per Dr. Rojas request. NG tube placement ordered. Patient reports pain has improved after pain medication. KUB shows: Placement of enteric tube. Tip lies at the gastroesophageal junction and side port lies in the distal esophagus. Advancement by 5 to 10 cm recommended. Persistent findings compatible with small bowel obstruction. Pt stable to be transferred to the floor. Vital Signs Temperature 97.4 F L 06/18/17 08:54 Pulse Rate 87 06/18/17 08:54 Respiratory Rate 18 06/18/17 08:54 Blood Pressure 152/88 06/18/17 08:54 O2 Sat by Pulse Oximetry 98 06/18/17 08:54 Temperature 97.4 F L 06/18/17 08:54 Pulse Rate 87 06/18/17 08:54 Respiratory Rate 18 06/18/17 08:54 Blood Pressure 152/88 06/18/17 08:54 O2 Sat by Pulse Oximetry 98 06/18/17 08:54 Oxygen Delivery Oxygen Delivery Room Air Abdominal Pain - Medical Records Medical records reviewed: Yes I reviewed the patient's medical records. - Lab Data Lab results reviewed: Yes I reviewed the patient's lab results. Result diagrams: 06/18/17 09:17 06/18/17 09:17 Lab Results 06/18/17 06/18/17 06/18/17 Range/Units 09:17 09:17 09:17 WBC 6.6 (4.3-11.1) K/mcL RBC 4.00 L (4.19-5.50) M/mcL Hgb 11.9 L (12.9-16.9) g/dL Hct 36.7 L (37.5-50.1) % MCV 91.8 (83.0-100.0) fL MCH 29.8 (28.0-33.3) pg MCHC 32.4 (31.6-35.5) g/dL RDW 14.3 (11.5-14.5) % Plt Count 188 (140-400) K/mcL MPV 10.0 (9.4-12.4) fL Immature Gran % 0.3 (0-4) % Seg Neutrophils % 77.6 % Lymphocytes % 13.3 % Monocytes % 7.4 % Eosinophils % 0.8 % Basophils % 0.6 % Neutrophils # 5.1 (1.6-8.9) K/mcL Lymphocytes # 0.9 (0.6-4.6) K/mcL Monocytes # 0.5 (0.0-1.3) K/mcL Eosinophils # 0.1 (0.0-0.6) K/mcL Basophils # 0.0 (0.0-0.2) K/mcL PT 11.9 (9.4-12.1) Seconds INR 1.1 APTT 33.1 (26.0-36.0) Seconds Sodium 142 (136-145) mEq/L Potassium 3.4 L (3.5-4.5) mEq/L Chloride 106 (98-109) mEq/L Carbon Dioxide 22 (19-29) mEq/L BUN 5 L (8-26) mg/dL Creatinine 0.96 (0.72-1.25) mg/dL Est GFR ( Amer) > 60 (> 60) Est GFR (Non-Af Amer) > 60 (> 60) BUN/Creatinine Ratio 5 L (6-26) Glucose 177 H (70-99) mg/dL Calculated Osmolality 296 (280-300) Lactic Acid (0.5-2.2) mmol/L Calcium 9.4 (8.6-10.8) mg/dL Total Bilirubin 0.5 (0.2-1.2) mg/dL Direct Bilirubin 0.2 (0.0-0.5) mg/dL Indirect Bilirubin 0.3 (0.0-1.2) mg/dL AST 36 H (5-34) Units/L ALT 18 (0-55) Units/L Alkaline Phosphatase 77 (38-126) Units/L Serum Total Protein 7.0 (6.0-8.3) g/dL Albumin 3.0 L (3.5-5.0) g/dL Globulin 4.0 H (2.4-3.5) g/dL Albumin/Globulin Ratio 0.8 L (1.1-2.2) 06/18/17 Range/Units 09:17 WBC (4.3-11.1) K/mcL RBC (4.19-5.50) M/mcL Hgb (12.9-16.9) g/dL Hct (37.5-50.1) % MCV (83.0-100.0) fL MCH (28.0-33.3) pg MCHC (31.6-35.5) g/dL RDW (11.5-14.5) % Plt Count (140-400) K/mcL MPV (9.4-12.4) fL Immature Gran % (0-4) % Seg Neutrophils % % Lymphocytes % % Monocytes % % Eosinophils % % Basophils % % Neutrophils # (1.6-8.9) K/mcL Lymphocytes # (0.6-4.6) K/mcL Monocytes # (0.0-1.3) K/mcL Eosinophils # (0.0-0.6) K/mcL Basophils # (0.0-0.2) K/mcL PT (9.4-12.1) Seconds INR APTT (26.0-36.0) Seconds Sodium (136-145) mEq/L Potassium (3.5-4.5) mEq/L Chloride (98-109) mEq/L Carbon Dioxide (19-29) mEq/L BUN (8-26) mg/dL Creatinine (0.72-1.25) mg/dL Est GFR ( Amer) (> 60) Est GFR (Non-Af Amer) (> 60) BUN/Creatinine Ratio (6-26) Glucose (70-99) mg/dL Calculated Osmolality (280-300) Lactic Acid 3.7 H (0.5-2.2) mmol/L Calcium (8.6-10.8) mg/dL Total Bilirubin (0.2-1.2) mg/dL Direct Bilirubin (0.0-0.5) mg/dL Indirect Bilirubin (0.0-1.2) mg/dL AST (5-34) Units/L ALT (0-55) Units/L Alkaline Phosphatase (38-126) Units/L Serum Total Protein (6.0-8.3) g/dL Albumin (3.5-5.0) g/dL Globulin (2.4-3.5) g/dL Albumin/Globulin Ratio (1.1-2.2) Attestation Statement - Attestation Attestation: Ephraim Vega DO have provided [id number] time during the care of this patient. Detailed review the presentation, symptoms, medical history were discussed and reviewed with the mid-level provider Teri José PA-C/BRENT. Medical intervention labs and imaging studies were reviewed in detail. See full documentation of physical exam and course of care in the mid-level provider 's note. I agree with the determined course of care, medical interventio,n and disposition put forth by the mid-level provider. See below documentation for changes or alterations in documentation. 71-year-old male well known to this facility for small bowel obstruction secondary to colostomy. Presents here today with similar issue. Just discharged yesterday for identical presentation. Onset of what appears to be outlet obstruction of the colostomy at this time. Discussed immediately with the on-call surgeon Dr. rojas. Recommendation for admission at this time did not request nasogastric tube or CT imaging. Laboratory workup ordered at his request. Fluids and pain medication and be given. Otherwise no other acute issue. Bedside physical exam completed by myself patient has clear lungs heart is regular abdomen is tender to touch but no specific signs of guarding or rigidity. No antibiotic regimen requested at this point. Patient will be admitted for definitive management. See documentation detailed presentation in the mid-level provider Teri José's note
[2017-06-18] MEDS ORDERED: *HR* Morphine 2 MG/ML SYRINGE IVP ONE ×2 (09:16→12:50)
[2017-06-18] MEDS ORDERED: Ondansetron 4 MG/2 ML VIAL IVP ONE (09:16)
[2017-06-18 09:37] LABS: INR 1.1; Prothrombin Time 11.9 Seconds (9.4-12.1)
[2017-06-18 09:40] LABS: Activated Partial Thrombo Time 33.1 Seconds (26.0-36.0); Basophils % 0.6 %; Eosinophils # 0.1 K/mcL (0.0-0.6); Eosinophils % 0.8 %; Hematocrit 36.7 % (37.5-50.1); Hemoglobin 11.9 g/dL (12.9-16.9); Immature Granulocytes % 0.3 % (0-4); Lymphocytes # 0.9 K/mcL (0.6-4.6); Lymphocytes % 13.3 %; Mean Corpuscular HGB Conc 32.4 g/dL (31.6-35.5); Mean Corpuscular Hemoglobin 29.8 pg (28.0-33.3); Mean Corpuscular Volume 91.8 fL (83.0-100.0); Monocytes # 0.5 K/mcL (0.0-1.3); Monocytes % 7.4 %; Neutrophils # 5.1 K/mcL (1.6-8.9); Platelet Count 188 K/mcL (140-400); Red Cell Distribution Width 14.3 % (11.5-14.5); Segmented Neutrophils % 77.6 %
[2017-06-18 09:42] LABS: Alanine Aminotransferase 18 Units/L (0-55); Albumin/Globulin Ratio 0.8 (1.1-2.2); Alkaline Phosphatase 77 Units/L (38-126); Aspartate Amino Transferase 36 Units/L (5-34); BUN/Creatinine Ratio 5 (6-26); Bilirubin,Direct 0.2 mg/dL (0.0-0.5); Bilirubin,Indirect 0.3 mg/dL (0.0-1.2); Bilirubin,Total 0.5 mg/dL (0.2-1.2); Blood Urea Nitrogen 5 mg/dL (8-26); Calcium 9.4 mg/dL (8.6-10.8); Carbon Dioxide 22 mEq/L (19-29); Chloride 106 mEq/L (98-109); Glucose 177 mg/dL (70-99); Osmolality,Calculated 296 (280-300); Potassium 3.4 mEq/L (3.5-4.5); Sodium 142 mEq/L (136-145); eGFR For African Americans > 60 (> 60); eGFR For Non-African Americans > 60 (> 60)
--- NOTE | 2017-06-18 10:13 | General Surg History&Physical ---
<Neil Shearer - Last Filed: 06/18/17 10:09> Date of Encounter: 06/18/17 Time of Encounter: 09:45 Assessment and Plan (1) Small bowel obstruction Current Visit: Yes Status: Acute The assessment and plan as outlined above was discussed with the patient and/or family members who expressed understanding and agreement. All questions were answered. (2) S/P colostomy Current Visit: No Status: Chronic The assessment and plan as outlined above was discussed with the patient and/or family members who expressed understanding and agreement. All questions were answered. (3) History of colon cancer Current Visit: No Status: Resolved The assessment and plan as outlined above was discussed with the patient and/or family members who expressed understanding and agreement. All questions were answered. History of Present Illness Chief complaint: Abdominal Pain HPI: Mr. Mccain is a 71 year old male with a past medical history of recurrent small bowel obstructions, type 2 diabetes, hypertension, atrial fibrillation, colon cancer s/p colectomy, COPD who presents today for diffuse abdominal pain. He was last admitted on 06/13/17 for SBO and was discharged yesterday after he was able to take in solids without difficulty. His last meal was at [facility] yesterday night and he hasn't had a bowel movement or flatus since. He woke up today at 8:30am with abdominal pain and came to the Emergency Department. He denied any food intake today. He denies fever, chills, nausea, or vomiting. He denies chest pain or shortness of breath. He states that he has had 7 recurrent small bowel obstructions in the past month. Past Med Surg Social Fam HX - Past Medical History Medical history: cancer, diabetes, hyperlipidemia, hypertension, other Psychiatric history: no psych history - Past Surgical History Surgical History: cholecystectomy (open), colectomy (transverse and descending colectomy with RUQ colostomy, colonoscopy with polypectomy), colostomy, other ( bladder stone removed) - Social History Smoking Status: Former smoker Smokeless Tobacco Status: Yes Alcohol use: none Drug use: none - Family History Father Adopted: No Living Status: Hx Family Cardiac Disorders: Yes Hx Family Respiratory Disorders: No Hx Family Cancer: No Hx Family GI Disorders: No Hx Family Endocrine Disorder: No Hx Family Neuromuscular Disorders: No Hx Family Neurologic Disorders: No Hx Family HEENT Disorders: No Hx Family Autoimmune Disorders: No Medications and Allergies Atorvastatin [Lipitor] 40 mg PO DAILY 09/22/15 [History] Ferrous Sulfate 325 mg PO BID 09/22/15 [History] Furosemide [Lasix] 40 mg PO DAILY 09/22/15 [History] Glimepiride [Amaryl] 4 mg PO DAILY 09/22/15 [History] Potassium Chloride 40 meq PO DAILY 09/22/15 [History] Docusate [Colace] 100 mg PO BID #60 capsule 09/30/15 [Rx] Folic Acid 1 mg PO DAILY #30 tablet 11/01/15 [Rx] Metoprolol [Lopressor] 25 mg PO DAILY 05/14/16 [History] SitaGLIPtin [Januvia] 100 mg PO DAILY 05/14/16 [History] Albuterol Sulfate [Proair Hfa] 2 puff IH Q4H PRN 06/07/16 [History] Aspirin 81 mg PO DAILY 08/13/16 [History] Diltiazem HCl [Diltiazem 24Hr Cd] 120 mg PO DAILY 03/19/17 [History] Metformin HCl [Glucophage] 1,000 mg PO BID 06/13/17 [History] Cephalexin [Keflex] 500 mg PO BID #14 capsule 06/17/17 [Rx] Allergies No Known Allergies Allergy (Verified 06/18/17 09:40) Review of Systems All systems PM: reviewed and no additional remarkable complaints except as stated All systems PM: A 10-system review of systems was performed and is negative for pertinent findings except as documented above in the HPI. - Constitutional anorexia, no chills, no fever(s), no night sweats - EENT Nose, mouth and throat: as per HPI - Cardiovascular as per HPI - Respiratory as per HPI - Gastrointestinal abdominal pain, bloating General Surgery Exam Initial Vital Signs Temp Pulse Resp BP Pulse Ox 97.4 F L 87 18 152/88 98 06/18/17 08:54 06/18/17 08:54 06/18/17 08:54 06/18/17 08:54 06/18/17 08:54 - General physical appearance moderate distress, obese - Eyes PERRL - ENT normal nares, normal mucosa, no hearing loss, no congestion - Neck no masses, no bruits, trachea midline, no lymphadectomy - Respiratory normal expansion, normal respiratory effort, clear to percussion, clear to auscultation - Cardiovascular Cardiovascular exam: Present: RRR, no murmurs/rubs/gallops - Expanded Cardiovascular Exam Peripheral pulses: 2+: Carotid (L) PM, Carotid (R) PM, Radial (L), Radial (R) - Abdomen Abdomen general surgery: Present: tympanic, distended, tender, wound (Patient has a colostomy bag without discharge or draining. ). Absent: guarding, rebound Abdominal Tenderness: Present: epigastic, diffusely Results - Labs 06/18/17 09:17 06/18/17 09:17 Abnormal lab results RBC 4.00 M/mcL (4.19-5.50) L 06/18/17 09:17 Hgb 11.9 g/dL (12.9-16.9) L 06/18/17 09:17 Hct 36.7 % (37.5-50.1) L 06/18/17 09:17 Potassium 3.4 mEq/L (3.5-4.5) L 06/18/17 09:17 BUN 5 mg/dL (8-26) L 06/18/17 09:17 BUN/Creatinine Ratio 5 (6-26) L 06/18/17 09:17 Glucose 177 mg/dL (70-99) H 06/18/17 09:17 Lactic Acid 3.7 mmol/L (0.5-2.2) H 06/18/17 09:17 AST 36 Units/L (5-34) H 06/18/17 09:17 Albumin 3.0 g/dL (3.5-5.0) L 06/18/17 09:17 Globulin 4.0 g/dL (2.4-3.5) H 06/18/17 09:17 Albumin/Globulin Ratio 0.8 (1.1-2.2) L 06/18/17 09:17 Diabetes panel 06/18/17 Range/Units 09:17 Sodium 142 (136-145) mEq/L Potassium 3.4 L (3.5-4.5) mEq/L Chloride 106 (98-109) mEq/L Carbon Dioxide 22 (19-29) mEq/L BUN 5 L (8-26) mg/dL Creatinine 0.96 (0.72-1.25) mg/dL Glucose 177 H (70-99) mg/dL Calcium 9.4 (8.6-10.8) mg/dL AST 36 H (5-34) Units/L ALT 18 (0-55) Units/L Alkaline Phosphatase 77 (38-126) Units/L Albumin 3.0 L (3.5-5.0) g/dL Calcium panel 06/18/17 Range/Units 09:17 Calcium 9.4 (8.6-10.8) mg/dL Albumin 3.0 L (3.5-5.0) g/dL Pituitary panel 06/18/17 Range/Units 09:17 Sodium 142 (136-145) mEq/L Potassium 3.4 L (3.5-4.5) mEq/L Chloride 106 (98-109) mEq/L Carbon Dioxide 22 (19-29) mEq/L BUN 5 L (8-26) mg/dL Creatinine 0.96 (0.72-1.25) mg/dL Glucose 177 H (70-99) mg/dL Calcium 9.4 (8.6-10.8) mg/dL Adrenal panel 06/18/17 Range/Units 09:17 Sodium 142 (136-145) mEq/L Potassium 3.4 L (3.5-4.5) mEq/L Chloride 106 (98-109) mEq/L Carbon Dioxide 22 (19-29) mEq/L BUN 5 L (8-26) mg/dL Creatinine 0.96 (0.72-1.25) mg/dL Glucose 177 H (70-99) mg/dL Calcium 9.4 (8.6-10.8) mg/dL Total Bilirubin 0.5 (0.2-1.2) mg/dL AST 36 H (5-34) Units/L ALT 18 (0-55) Units/L Alkaline Phosphatase 77 (38-126) Units/L Albumin 3.0 L (3.5-5.0) g/dL All other labs normal. <Renaldo Miller - Last Filed: 06/18/17 13:15> Date of Encounter: 06/18/17 History of Present Illness HPI: Mr. Mccain is a 71 year old male Review of Systems All systems PM: A 10-system review of systems was performed and is negative for pertinent findings except as documented above in the HPI. General Surgery Exam Initial Vital Signs Temp Pulse Resp BP Pulse Ox 97.4 F L 87 18 152/88 98 06/18/17 08:54 06/18/17 08:54 06/18/17 08:54 06/18/17 08:54 06/18/17 08:54 Results - Labs 06/18/17 09:17 06/18/17 09:17 Abnormal lab results RBC 4.00 M/mcL (4.19-5.50) L 06/18/17 09:17 Hgb 11.9 g/dL (12.9-16.9) L 06/18/17 09:17 Hct 36.7 % (37.5-50.1) L 06/18/17 09:17 Potassium 3.4 mEq/L (3.5-4.5) L 06/18/17 09:17 BUN 5 mg/dL (8-26) L 06/18/17 09:17 BUN/Creatinine Ratio 5 (6-26) L 06/18/17 09:17 Glucose 177 mg/dL (70-99) H 06/18/17 09:17 Lactic Acid 3.7 mmol/L (0.5-2.2) H 06/18/17 09:17 AST 36 Units/L (5-34) H 06/18/17 09:17 Albumin 3.0 g/dL (3.5-5.0) L 06/18/17 09:17 Globulin 4.0 g/dL (2.4-3.5) H 06/18/17 09:17 Albumin/Globulin Ratio 0.8 (1.1-2.2) L 06/18/17 09:17 All other labs normal. - Attending Attestation I examined this patient and my medical decision-making was reviewed with the Resident Physician. I agree with the documented findings, disposition and treatment plan as described except to the extent set forth below. The patient is seen and evaluated. He has had multiple recurrent episodes of partial bowel obstruction. We will repeat a small bowel follow-through to try and identify the source of the obstruction. This is likely in the pelvis secondary to previous pelvic surgery and radiation. If I am able to identify a source we will plan exploratory laparotomy. Renaldo Miller MD FACS
[2017-06-18] MEDS ORDERED: Ondansetron 4 MG/2 ML VIAL IVP PRN (17:14)
[2017-06-18] MEDS ORDERED: Naloxone 0.4 MG/ML INJ IVP PRN (17:14)
[2017-06-18] MEDS ORDERED: 0.9 % Sodium Chloride 1,000 ML IVC SCH (17:15)
[2017-06-18] MEDS ORDERED: *HR* HYDROmorphone (PF) 1 MG/ML SYRINGE IVP PRN (17:16)
--- NOTE | 2017-06-18 19:47 | Anesthesia Evaluation PreOp ---
Date of Encounter: 06/18/17 Time of Encounter: 22:45 - Past History Planned Operation: Exploratory Laparotomy Cardiac History: HTN, Hyperlipidemia Pulmonary History: Former smoker (quit 2011, smoked for 45 years), Asthma, COPD POWER PROJECT MANAGER History: Denies Any Significant HX Other Medical History: Renal (CKD stage 2), Diabetes Type II, Other (prostate CA S/P XRT, colon CA, RA) Anesthesia History: No Prior Anesthetic Complications, Past Anesthesia Alcohol Use: none Drug use: none Medications and Allergies Atorvastatin [Lipitor] 40 mg PO DAILY 09/22/15 [History] Ferrous Sulfate 325 mg PO BID 09/22/15 [History] Furosemide [Lasix] 40 mg PO DAILY 09/22/15 [History] Glimepiride [Amaryl] 4 mg PO DAILY 09/22/15 [History] Potassium Chloride 40 meq PO DAILY 09/22/15 [History] Docusate [Colace] 100 mg PO BID #60 capsule 09/30/15 [Rx] Folic Acid 1 mg PO DAILY #30 tablet 11/01/15 [Rx] Metoprolol [Lopressor] 25 mg PO DAILY 05/14/16 [History] SitaGLIPtin [Januvia] 100 mg PO DAILY 05/14/16 [History] Albuterol Sulfate [Proair Hfa] 2 puff IH Q4H PRN 06/07/16 [History] Aspirin 81 mg PO DAILY 08/13/16 [History] Diltiazem HCl [Diltiazem 24Hr Cd] 120 mg PO DAILY 03/19/17 [History] Metformin HCl [Glucophage] 1,000 mg PO BID 06/13/17 [History] Cephalexin [Keflex] 500 mg PO BID #14 capsule 06/17/17 [Rx] Allergies No Known Allergies Allergy (Verified 06/18/17 09:40) - Meds/Allergy Pre-op Review Medications Reviewed: Yes Allergies Reviewed: Yes Beta Blockers on Current Med List: Yes Anesthesia Results - Labs 06/18/17 09:17 06/18/17 09:17 Laboratory Tests 06/18/17 09:17 PT 11.9 INR 1.1 APTT 33.1 - Imaging EKG: report reviewed (03/31/2017 ATRIAL FIBRILLATION WITH RAPID VENTRICULAR RESPONSE DIFFUSE ST ABNORMALITIES) Additional studies: 04/01/2017 Echo Impressions: LVEF 60%. Normal LV chamber size and wall thickness. Despite the use of Definity, not all LV segments were well visualized, but overall LV function is normal. This was a limited study. 08/15/2016 Echo Impressions: Normal LV chamber size, wall thickness, and systolic function. LVEF 60%. Mild left ventricular diastolic dysfunction. Normal right ventricular structure and function. Mildly dilated left atrium. No significant valvular dysfunction. Unable to estimate RVSP due to lack of TR jet. 05/21/2015 SELECTIVE CORONARY ANGIOGRAM LEFT HEART CATHETEIZATION SHEATH PLACEMENT RIGHT COMMON FEMORAL ARTERY Impressions: Coronary arteries are angiographically normal. Hypertension. Anesthesia Exam Vital Signs/O2 Sat/Glucose, Most Recent Temp Pulse Resp BP Pulse Ox 97.8 F 78 16 158/94 96 06/18/17 20:10 06/18/17 20:10 06/18/17 20:10 06/18/17 20:10 06/18/17 20:10 Blood Glucose* 144 Height: 5'9''/1.75 m Weight: 235 lbs/107 kg - HEENT Pupil (Motor): EOMI Mallampati: II Teeth: Edentulous Oral Opening: Greater than 3 - POWER PROJECT MANAGER LOC: Oriented POWER PROJECT MANAGER Motor: Normal RUE, Normal LUE, Normal RLE, Normal LLE, Normal Face POWER PROJECT MANAGER Sensory: Normal: RUE, LUE, RLE, LLE, Face - Cardiac Rhythm: Regular Murmur: None - Pulmonary Breath Sounds: bilateral Clear Respiratory Effort: Symmetrical Anesthesia Assess/Plan ASA Score: 3 Modified Gerber Scale for Level of Consciousness: Cooperative, oriented, and tranquil Anesthetic Plan: General Monitoring Plan: Standard Monitors Recovery Plan: PACU
[2017-06-18] MEDS: *HR* Heparin 5,000 UNIT/ML VIAL SQ SCH (19:51)
[2017-06-18] MEDS: 0.9 % Sodium Chloride w KCl 20 MEQ/1,000 ML MLS IVC SCH (19:58)
[2017-06-19] MEDS: 0.9 % Sodium Chloride w KCl 20 MEQ/1,000 ML MLS IVC SCH ×3 (06:04→22:02)
[2017-06-19] MEDS ORDERED: Chloraseptic Spray 177 ML BOTTLE MM PRN ×2 (06:10→21:08)
[2017-06-19 06:40] LABS: Basophils % 0.6 %; Eosinophils # 0.1 K/mcL (0.0-0.6); Eosinophils % 1.5 %; Hematocrit 34.1 % (37.5-50.1); Hemoglobin 10.9 g/dL (12.9-16.9); Immature Granulocytes % 0.5 % (0-4); Lymphocytes # 0.8 K/mcL (0.6-4.6); Lymphocytes % 11.3 %; Mean Corpuscular Hemoglobin 29.8 pg (28.0-33.3); Mean Corpuscular Volume 93.2 fL (83.0-100.0); Mean Platelet Volume 9.8 fL (9.4-12.4); Monocytes # 0.6 K/mcL (0.0-1.3); Monocytes % 8.9 %; Neutrophils # 5.2 K/mcL (1.6-8.9); Platelet Count 178 K/mcL (140-400); Red Blood Count 3.66 M/mcL (4.19-5.50); Red Cell Distribution Width 14.7 % (11.5-14.5); Segmented Neutrophils % 77.2 %
[2017-06-19 06:49] LABS: BUN/Creatinine Ratio 5 (6-26); Blood Urea Nitrogen 4 mg/dL (8-26); Calcium 8.6 mg/dL (8.6-10.8); Carbon Dioxide 28 mEq/L (19-29); Chloride 108 mEq/L (98-109); Glucose 145 mg/dL (70-99); Osmolality,Calculated 297 (280-300); Potassium 3.4 mEq/L (3.5-4.5); Sodium 144 mEq/L (136-145); eGFR For African Americans > 60 (> 60); eGFR For Non-African Americans > 60 (> 60)
[2017-06-19] MEDS: *HR* Heparin 5,000 UNIT/ML VIAL SQ SCH (08:36)
[2017-06-19] MEDS ORDERED: Pantoprazole 40 MG VIAL IVP SCH (09:00)
[2017-06-19] MEDS ORDERED: *HR* Metoprolol 5 MG/5 ML VIAL IVP SCH (12:00)
[2017-06-19] MEDS ORDERED: *HR* Midazolam HCl 2 MG/2 ML VIAL ONE (16:21)
[2017-06-19] MEDS ORDERED: Neostigmine Methylsulfate 3 MG/3 ML SYRINGE ONE (16:21)
[2017-06-19] MEDS ORDERED: *HR* Phenylephrine 10 MG/ML VIAL ONE (16:21)
[2017-06-19] MEDS ORDERED: Lidocaine -MPF 2% 2 ML VIAL ONE (16:21)
[2017-06-19] MEDS ORDERED: Dexamethasone 4 MG/ML VIAL ONE (16:21)
[2017-06-19] MEDS ORDERED: *HR* Propofol 200 MG/20 ML VIAL IVP ONE (16:21)
[2017-06-19] MEDS ORDERED: Lidocaine -MPF 4% 5 ML AMPUL ONE (16:21)
[2017-06-19] MEDS ORDERED: *HR* Succinylcholine 200 MG/10 ML VIAL IVP ONE (16:21)
[2017-06-19] MEDS ORDERED: Ondansetron 4 MG/2 ML VIAL ONE (16:21)
[2017-06-19] MEDS ORDERED: *HR* FentaNYL (PF) 100 MCG/2 ML VIAL ONE ×2 (16:21→18:12)
[2017-06-19] MEDS ORDERED: Ketorolac 30 MG/ML VIAL ONE (16:21)
[2017-06-19] MEDS ORDERED: *HR* Rocuronium Bromide 50 MG/5 ML VIAL ONE (16:21)
[2017-06-19] MEDS ORDERED: CefOXitin 2,000 MG VIAL IVPB ONE (17:49)
[2017-06-19] MEDS ORDERED: *HR* Metoprolol 5 MG/5 ML VIAL IVP ONE (18:31)
[2017-06-19] MEDS ORDERED: CefOXitin 1,000 MG VIAL ONE (19:12)
[2017-06-19] MEDS ORDERED: *HR* Morphine 10 MG/ML VIAL ONE (19:25)
[2017-06-19] MEDS ORDERED: *HR* Promethazine 25 MG/ML VIAL IVP PRN (19:33)
--- NOTE | 2017-06-19 19:49 | Operative Note ---
Date of procedure: 06/19/17 Pre-op diagnosis: Small bowel obstruction Post-op diagnosis: same Procedure: #1 small bowel resection #2 was adhesions times 1 hour #3 resection of peritoneal nodule Anesthesia: SHADE Surgeon: Renaldo Miller Estimated blood loss (cc): 100 Specimen: #1 small bowel segment #2 peritoneal nodule Condition: stable Disposition: PACU Procedure in Detail: After informed consent the patients taking major operating suite placed in the supine position given adequate general endotracheal anesthesia. The colostomy bag was removed and I used a 10/10 drape to drape off the ostomy from the midline. The midline was then prepped with prevail. The abdomen was draped in sterile fashion using Ioban in standard draping techniques. Timeout was taken patient was identified. I opened the midline with a #10 blade. I entered the abdominal cavity. There were essentially no adhesions to the anterior abdominal wall. This made entry to the abdomen much. The omentum had some adhesions to the anterior abdominal wall that were easily divided. There were 3 main areas of adhesions and small bowel area all were in close approximation to the pelvis. Over the next hour I performed lysis of adhesions on the distal small bowel in the pelvis area I was able to mobilize all segments except one loop of small bowel. The small bowel was encased in inflammatory tissue at the apex the pelvis. This is the usual point of obstruction in patients that have received pelvic radiation after abdominal hernia resection. After 30 minutes I was able to mobilize the loop out of the pelvis. The antimesenteric border was lost over a 3 cm segment. This area was permanently adhesed to the area of radiation at the apex of the pelvis. I would not consider this an enterotomy. This was more of a debridement of devitalized small bowel tissue. The opening was about 15 cm proximal to the ileocecal valve. Unfortunately the only: The patient has is the right colon. I very seldom perform an anastomosis in this area because the blood supply. I decided to perform anastomosis at this level to maintain as much colon as possible to avoid future electrolyte problems for the patient. I divided the small bowel with SUMEET proximal and distal to the area of radiation damage and perforation. I then performed SUMEET antimesenteric anastomosis and close the resulting enterotomy with a TA 60. The anastomosis was circumferentially reinforced with interrupted 3-0 silk. This gave an excellent technical result blood supply was excellent both the proximal and distal segments. Carefully ran the small bowel from distal to proximal there were no other areas of damage. There were no enterotomies. Several loops of the bowel had been radiated and demonstrated neovascularity but there is no evidence of obstruction so the segments were not resected. While we were running the small bowel I found a rockhard peritoneal nodule in the area of the falciform ligament. This was resected and interrupted 3-0 [id number] stitches were used for hemostasis. The specimen was sent for pathologic evaluation. The abdomen was irrigated with copious amounts of antibiotic containing solution and the midline was closed with looped 0 PDS. The skin was closed with interrupted 2-0 Vicryl and skin perri. He tolerated the procedure well. Blood loss was 100 mL.
[2017-06-19] MEDS: *HR* HYDROmorphone (PF) 1 MG/ML SYRINGE IVP PRN ×3 (20:20→21:55)
--- NOTE | 2017-06-19 21:01 | Anesthesia Evaluation Post Op ---
Date of Encounter: 06/19/17 Time of Encounter: 21:00 - Vital Signs Vital Signs: Vital Signs/O2 Sat, Most Current Temp Pulse Resp BP Pulse Ox 98.8 F 79 14 181/89 98 06/19/17 20:50 06/19/17 20:50 06/19/17 20:50 06/19/17 20:50 06/19/17 20:50 - Lungs Lungs: Clear Ascult./Percussion - Airway Airway: Non-obstructed - Cardiovascular Regular Rate - Mental Status Mental Status: Alert & Oriented, Answers Appropriately - Pain Pain Scale: 4 Pain Scale used: Numeric (1 - 10) - Nausea Vomiting Nausea Vomiting: Not Present - Hydration Hydration: NPO, Has not voided - Discharge PostOp Status: Transfer Patient to floor
[2017-06-19] MEDS ORDERED: Naloxone 0.4 MG/ML INJ IVP PRN (21:08)
[2017-06-19] MEDS ORDERED: Ondansetron 4 MG/2 ML VIAL IVP PRN (21:08)
[2017-06-20] MEDS ORDERED: cefOXitin 2,000 MG in D5% in Water (Mini-Bag+) 100 ML IVPB SCH
[2017-06-20] MEDS: *HR* Metoprolol 5 MG/5 ML VIAL IVP SCH ×5 (00:41→23:43)
[2017-06-20] MEDS: *HR* HYDROmorphone (PF) 1 MG/ML SYRINGE IVP PRN ×6 (02:54→23:54)
[2017-06-20] MEDS: *HR* Heparin 5,000 UNIT/ML VIAL SQ SCH ×2 (06:08→17:51)
[2017-06-20 06:44] LABS: Basophils % 0.2 %; Eosinophils % 0.3 %; Hematocrit 37.4 % (37.5-50.1); Hemoglobin 11.5 g/dL (12.9-16.9); Immature Granulocytes % 0.5 % (0-4); Lymphocytes # 0.6 K/mcL (0.6-4.6); Lymphocytes % 5.3 %; Mean Corpuscular HGB Conc 30.7 g/dL (31.6-35.5); Mean Corpuscular Hemoglobin 29.3 pg (28.0-33.3); Mean Corpuscular Volume 95.2 fL (83.0-100.0); Mean Platelet Volume 9.7 fL (9.4-12.4); Monocytes # 1.1 K/mcL (0.0-1.3); Monocytes % 8.9 %; Neutrophils # 10.3 K/mcL (1.6-8.9); Platelet Count 220 K/mcL (140-400); Red Blood Count 3.93 M/mcL (4.19-5.50); Red Cell Distribution Width 14.7 % (11.5-14.5); Segmented Neutrophils % 84.8 %
--- NOTE | 2017-06-20 06:52 | General Surgery Progress Note ---
<Neil Shearer - Last Filed: 06/20/17 08:13> Date of Encounter: 06/20/17 Time of Encounter: 06:10 - Assessment and Plan (1) S/P small bowel resection Current Visit: Yes Status: Acute Post-op day #1 small bowel resection with resection of peritoneal nodule by Dr. Miller NPO with ice chips at patient's request Wound care Colostomy care Ambulate TID as tolerated with assistance Incentive Spirometer 10 breaths TID (2) Hypertension Current Visit: No Status: Chronic Lopressor 5mg IVP daily Hydralazine 25 mg prn for SBP > 160 Continuous BP monitor Qualifiers: Hypertension type: essential hypertension Qualified Code(s): I10 - Essential (primary) hypertension (3) DVT prophylaxis Current Visit: No Status: Acute Continue Heparin 5000 unit for DVT prophylaxis Subjective Patient reports: no flatus, no bowel movement, afebrile Objective Vital Signs - Last 8 Hours Temp Pulse Resp BP Pulse Ox 06/20/17 04:24 98.7 F 96 16 146/89 95 06/20/17 00:32 98.4 F 97 16 143/84 96 06/19/17 23:41 98.5 F 90 16 162/82 95 Intake and Output 06/19/17 06/19/17 06/20/17 15:59 23:59 07:59 Intake Total 1000 / 1000 0 / 0 0 / 0 Output Total 500 / 500 200 / 200 0 / 0 Balance 500 / 500 -200 / -200 0 / 0 Intake: IV Fluids 1000 / 1000 KCl 20 mEq in 0.9% Sodium 1000 / 1000 Chloride 20 meq In 1,000 ml @ 100 mls/hr IVC . Q10H [facility] Rx#:[id number] Oral 0 / 0 0 / 0 0 / 0 Output: Urine 0 / 0 Stool 350 / 350 Estimated Blood Loss 100 / 100 Gastric Drainage 150 / 150 100 / 100 Right Nare 100 / 100 Other: Meal NPO NPO Percent of Meal Consumed 0% 0% # Urine Diapers 1 2 Weight 107.6 kg Blood Glucose* 126 149 155 Patient Weight 06/20/17 23:59 Weight 107.6 kg - General physical appearance well developed, well nourished, no distress - Cardiovascular Cardiovascular exam: Present: RRR, no murmurs/rubs/gallops - Abdomen Abdomen: Present: bowel sounds present, soft, tender, wound (Colostomy pink, no flatus, no stool) - Incision Incision: Present: clean and dry, intact - Neurologic CN 2-12 grossly intact - Labs 06/20/17 06:33 06/19/17 06:12 Diabetes panel 06/19/17 Range/Units 06:12 Sodium 144 (136-145) mEq/L Potassium 3.4 L (3.5-4.5) mEq/L Chloride 108 (98-109) mEq/L Carbon Dioxide 28 (19-29) mEq/L BUN 4 L (8-26) mg/dL Creatinine 0.88 (0.72-1.25) mg/dL Glucose 145 H (70-99) mg/dL Calcium 8.6 (8.6-10.8) mg/dL Calcium panel 06/19/17 Range/Units 06:12 Calcium 8.6 (8.6-10.8) mg/dL Pituitary panel 06/19/17 Range/Units 06:12 Sodium 144 (136-145) mEq/L Potassium 3.4 L (3.5-4.5) mEq/L Chloride 108 (98-109) mEq/L Carbon Dioxide 28 (19-29) mEq/L BUN 4 L (8-26) mg/dL Creatinine 0.88 (0.72-1.25) mg/dL Glucose 145 H (70-99) mg/dL Calcium 8.6 (8.6-10.8) mg/dL Adrenal panel 06/19/17 Range/Units 06:12 Sodium 144 (136-145) mEq/L Potassium 3.4 L (3.5-4.5) mEq/L Chloride 108 (98-109) mEq/L Carbon Dioxide 28 (19-29) mEq/L BUN 4 L (8-26) mg/dL Creatinine 0.88 (0.72-1.25) mg/dL Glucose 145 H (70-99) mg/dL Calcium 8.6 (8.6-10.8) mg/dL - VTE Documentation of Mechanical Device: Intermittent pneumatic compression device Consult Discharge Plan - Plan Referrals: Guillermo Garibay MD [Primary Care Provider] - <Renaldo Miller - Last Filed: 06/20/17 12:06> Date of Encounter: 06/20/17 Objective Vital Signs - Last 8 Hours Temp Pulse Resp BP Pulse Ox 06/20/17 11:51 98.6 F 94 20 138/83 93 06/20/17 08:24 99.0 F 94 16 137/85 94 06/20/17 04:24 98.7 F 96 16 146/89 95 Intake and Output 06/19/17 06/20/17 06/20/17 23:59 07:59 15:59 Intake Total 0 / 0 1000 / 1000 0 / 0 Output Total 200 / 200 0 / 0 300 / 300 Balance -200 / -200 1000 / 1000 -300 / -300 Intake: IV Fluids 1000 / 1000 KCl 20 mEq in 0.9% Sodium 1000 / 1000 Chloride 20 meq In 1,000 ml @ 100 mls/hr IVC . Q10H [facility] Rx#:[id number] Oral 0 / 0 0 / 0 0 / 0 Output: Urine 0 / 0 Stool 0 / 0 Estimated Blood Loss 100 / 100 Gastric Drainage 100 / 100 300 / 300 Right Nare 100 / 100 Other: Meal NPO NPO Percent of Meal Consumed 0% # Urine Diapers 2 1 Weight 107.6 kg Blood Glucose* 149 155 185 Patient Weight 06/20/17 23:59 Weight 107.6 kg - Labs 06/20/17 06:33 06/19/17 06:12 - Attending Attestation I examined this patient and my medical decision-making was reviewed with the Resident Physician. I agree with the documented findings, disposition and treatment plan as described except to the extent set forth below. The patient was seen and evaluated on morning rounds with the resident. The patient is in good pain control on postoperative day 1 from exploratory laparotomy and small bowel resection with lysis of adhesions. We will maintain nasogastric tube drainage. Continue IV hydration. Renaldo Miller MD FACS
[2017-06-20] MEDS: 0.9 % Sodium Chloride w KCl 20 MEQ/1,000 ML MLS IVC SCH ×2 (07:36→17:55)
[2017-06-20] MEDS: Pantoprazole 40 MG VIAL IVP SCH (09:40)
[2017-06-21 04:07] LABS: Basophils % 0.3 %; Eosinophils % 0.1 %; Hematocrit 37.5 % (37.5-50.1); Hemoglobin 10.9 g/dL (12.9-16.9); Immature Granulocytes % 0.6 % (0-4); Lymphocytes # 1.1 K/mcL (0.6-4.6); Lymphocytes % 6.9 %; Mean Corpuscular HGB Conc 29.1 g/dL (31.6-35.5); Mean Corpuscular Hemoglobin 28.8 pg (28.0-33.3); Mean Corpuscular Volume 98.9 fL (83.0-100.0); Monocytes # 1.7 K/mcL (0.0-1.3); Monocytes % 10.7 %; Neutrophils # 12.6 K/mcL (1.6-8.9); Platelet Count 220 K/mcL (140-400); Red Blood Count 3.79 M/mcL (4.19-5.50); Segmented Neutrophils % 81.4 %
[2017-06-21 04:21] LABS: BUN/Creatinine Ratio 7 (6-26); Blood Urea Nitrogen 7 mg/dL (8-26); Calcium 8.3 mg/dL (8.6-10.8); Carbon Dioxide 29 mEq/L (19-29); Chloride 111 mEq/L (98-109); Glucose 157 mg/dL (70-99); Osmolality,Calculated 305 (280-300); Sodium 147 mEq/L (136-145); eGFR For African Americans > 60 (> 60); eGFR For Non-African Americans > 60 (> 60)
[2017-06-21 04:23] LABS: Potassium 4.3 mEq/L (3.5-4.5)
[2017-06-21] MEDS: 0.9 % Sodium Chloride w KCl 20 MEQ/1,000 ML MLS IVC SCH (04:40)
[2017-06-21] MEDS: *HR* Heparin 5,000 UNIT/ML VIAL SQ SCH ×2 (05:55→17:57)
[2017-06-21] MEDS: *HR* Metoprolol 5 MG/5 ML VIAL IVP SCH ×4 (05:55→23:06)
[2017-06-21] MEDS: Pantoprazole 40 MG VIAL IVP SCH (08:54)
[2017-06-21] MEDS: *HR* HYDROmorphone (PF) 1 MG/ML SYRINGE IVP PRN ×3 (08:54→19:37)
--- NOTE | 2017-06-21 15:58 | General Surgery Progress Note ---
<Neil Shearer - Last Filed: 06/21/17 15:56> Date of Encounter: 06/21/17 Time of Encounter: 06:30 - Assessment and Plan (1) S/P small bowel resection Current Visit: Yes Status: Acute Post-op day #2 small bowel resection with resection of peritoneal nodule by Dr. Miller NPO with ice chips at patient's request Wound care Colostomy care Ambulate TID as tolerated with assistance Incentive Spirometer 10 breaths TID Remove NGT when patient has flatus and stool (2) Hypertension Current Visit: No Status: Chronic Lopressor 5mg IVP daily Hydralazine 25 mg prn for SBP > 160 Continuous BP monitor Qualifiers: Hypertension type: essential hypertension Qualified Code(s): I10 - Essential (primary) hypertension (3) DVT prophylaxis Current Visit: No Status: Acute Continue Heparin 5000 unit for DVT prophylaxis Subjective Patient reports: no flatus, no bowel movement, nausea, vomiting (once in a.m., minimal amount, white and foamy), other (denied voiding) Objective Vital Signs - Last 8 Hours Temp Pulse Resp BP Pulse Ox 06/21/17 10:30 97.6 F 92 17 155/86 99 06/21/17 08:26 98.1 F 101 17 163/90 97 Intake and Output 06/20/17 06/21/17 06/21/17 23:59 07:59 15:59 Intake Total 1489 / 1489 1000 / 1000 Output Total 250 / 250 45 / 45 Balance 1489 / 1489 750 / 750 -45 / -45 Intake: IV Fluids 1489 / 1489 1000 / 1000 KCl 20 mEq in 0.9% Sodium 489 / 489 1000 / 1000 Chloride 20 meq In 1,000 ml @ 100 mls/hr IVC . Q10H [facility] Rx#:[id number] Oral 0 / 0 Output: Gastric Drainage 250 / 250 45 / 45 Right Nare 45 / 45 Other: Meal NPO # Voids 1 # Urine Diapers 1 Weight 108.6 kg Blood Glucose* 165 143 Patient Weight 06/21/17 23:59 Weight 108.6 kg - General physical appearance well developed, well nourished, no distress - Eyes normal ocular movement - ENT atraumatic, normocephalic, CN 2-12 grossly intact - Neck Neck exam: trachea midline - Respiratory normal expansion, normal respiratory effort, clear to auscultation - Cardiovascular Cardiovascular exam: Present: RRR, no murmurs/rubs/gallops - Abdomen Abdomen: Present: bowel sounds present, soft, tender (as expected from surgery) , wound (Coloscopy pink. No flatus. No stool. ) - Incision Incision: Present: clean and dry, intact - Labs 06/21/17 03:23 06/21/17 03:23 Diabetes panel 06/21/17 Range/Units 03:23 Sodium 147 H (136-145) mEq/L Potassium 4.3 (3.5-4.5) mEq/L Chloride 111 H (98-109) mEq/L Carbon Dioxide 29 (19-29) mEq/L BUN 7 L (8-26) mg/dL Creatinine 1.00 (0.72-1.25) mg/dL Glucose 157 H (70-99) mg/dL Calcium 8.3 L (8.6-10.8) mg/dL Calcium panel 06/21/17 Range/Units 03:23 Calcium 8.3 L (8.6-10.8) mg/dL Pituitary panel 06/21/17 Range/Units 03:23 Sodium 147 H (136-145) mEq/L Potassium 4.3 (3.5-4.5) mEq/L Chloride 111 H (98-109) mEq/L Carbon Dioxide 29 (19-29) mEq/L BUN 7 L (8-26) mg/dL Creatinine 1.00 (0.72-1.25) mg/dL Glucose 157 H (70-99) mg/dL Calcium 8.3 L (8.6-10.8) mg/dL Adrenal panel 06/21/17 Range/Units 03:23 Sodium 147 H (136-145) mEq/L Potassium 4.3 (3.5-4.5) mEq/L Chloride 111 H (98-109) mEq/L Carbon Dioxide 29 (19-29) mEq/L BUN 7 L (8-26) mg/dL Creatinine 1.00 (0.72-1.25) mg/dL Glucose 157 H (70-99) mg/dL Calcium 8.3 L (8.6-10.8) mg/dL - VTE Documentation of Mechanical Device: Intermittent pneumatic compression device Consult Discharge Plan - Plan Referrals: Guillermo Garibay MD [Primary Care Provider] - <Popeye Millerjeb Mishra - Last Filed: 06/21/17 17:59> Date of Encounter: 06/21/17 Objective Vital Signs - Last 8 Hours Temp Pulse Resp BP Pulse Ox 06/21/17 17:36 98.3 F 99 17 156/94 97 06/21/17 10:30 97.6 F 92 17 155/86 99 Intake and Output 06/21/17 06/21/17 06/21/17 07:59 15:59 23:59 Intake Total 1000 / 1000 0 / 0 Output Total 250 / 250 45 / 45 Balance 750 / 750 -45 / -45 Intake: IV Fluids 1000 / 1000 KCl 20 mEq in 0.9% Sodium 1000 / 1000 Chloride 20 meq In 1,000 ml @ 100 mls/hr IVC . Q10H [facility] Rx#:[id number] Oral 0 / 0 Output: Gastric Drainage 250 / 250 45 / 45 Right Nare 45 / 45 Other: Meal NPO # Urine Diapers 1 Weight 108.6 kg Blood Glucose* 143 165 Patient Weight 06/21/17 23:59 Weight 108.6 kg - Labs 06/21/17 03:23 06/21/17 03:23 Diabetes panel 06/21/17 Range/Units 03:23 Sodium 147 H (136-145) mEq/L Potassium 4.3 (3.5-4.5) mEq/L Chloride 111 H (98-109) mEq/L Carbon Dioxide 29 (19-29) mEq/L BUN 7 L (8-26) mg/dL Creatinine 1.00 (0.72-1.25) mg/dL Glucose 157 H (70-99) mg/dL Calcium 8.3 L (8.6-10.8) mg/dL Calcium panel 06/21/17 Range/Units 03:23 Calcium 8.3 L (8.6-10.8) mg/dL Pituitary panel 06/21/17 Range/Units 03:23 Sodium 147 H (136-145) mEq/L Potassium 4.3 (3.5-4.5) mEq/L Chloride 111 H (98-109) mEq/L Carbon Dioxide 29 (19-29) mEq/L BUN 7 L (8-26) mg/dL Creatinine 1.00 (0.72-1.25) mg/dL Glucose 157 H (70-99) mg/dL Calcium 8.3 L (8.6-10.8) mg/dL Adrenal panel 06/21/17 Range/Units 03:23 Sodium 147 H (136-145) mEq/L Potassium 4.3 (3.5-4.5) mEq/L Chloride 111 H (98-109) mEq/L Carbon Dioxide 29 (19-29) mEq/L BUN 7 L (8-26) mg/dL Creatinine 1.00 (0.72-1.25) mg/dL Glucose 157 H (70-99) mg/dL Calcium 8.3 L (8.6-10.8) mg/dL - Attending Attestation I examined this patient and my medical decision-making was reviewed with the Resident Physician. I agree with the documented findings, disposition and treatment plan as described except to the extent set forth below. Patient seen and evaluated with retrosternal morning rounds. The patient's postoperative day 2 from exploratory laparotomy and small bowel resection. The patient has previously had pelvic radiation and 2 laparotomies. Small bowel debridement from the pelvic inflammation was necessary to relieve the small bowel obstruction. Afebrile vital signs stable pain control is adequate. Continue nasogastric tube drainage. Renaldo Miller MD FACS
[2017-06-22] MEDS: 0.9 % Sodium Chloride w KCl 20 MEQ/1,000 ML MLS IVC SCH ×4 (00:26→18:34)
[2017-06-22] MEDS: *HR* HYDROmorphone (PF) 1 MG/ML SYRINGE IVP PRN ×3 (02:36→21:08)
[2017-06-22] MEDS: *HR* Metoprolol 5 MG/5 ML VIAL IVP SCH ×3 (05:30→18:29)
[2017-06-22] MEDS: *HR* Heparin 5,000 UNIT/ML VIAL SQ SCH ×2 (05:31→18:32)
[2017-06-22 06:23] LABS: Eosinophils % 0.7 %; Mean Platelet Volume 9.8 fL (9.4-12.4)
[2017-06-22 06:25] LABS: Basophils # 0.1 K/mcL (0.0-0.2); Basophils % 0.5 %; Eosinophils # 0.1 K/mcL (0.0-0.6); Hematocrit 35.7 % (37.5-50.1); Hemoglobin 10.6 g/dL (12.9-16.9); Immature Granulocytes % 0.8 % (0-4); Lymphocytes % 7.8 %; Mean Corpuscular HGB Conc 29.7 g/dL (31.6-35.5); Mean Corpuscular Hemoglobin 29.4 pg (28.0-33.3); Mean Corpuscular Volume 98.9 fL (83.0-100.0); Platelet Count 203 K/mcL (140-400); Red Blood Count 3.61 M/mcL (4.19-5.50); Red Cell Distribution Width 14.8 % (11.5-14.5); Segmented Neutrophils % 82.2 %
[2017-06-22 06:34] LABS: BUN/Creatinine Ratio 10 (6-26); Blood Urea Nitrogen 9 mg/dL (8-26); Calcium 8.4 mg/dL (8.6-10.8); Carbon Dioxide 29 mEq/L (19-29); Chloride 112 mEq/L (98-109); Glucose 148 mg/dL (70-99); Osmolality,Calculated 307 (280-300); Sodium 148 mEq/L (136-145); eGFR For African Americans > 60 (> 60); eGFR For Non-African Americans > 60 (> 60)
[2017-06-22 06:43] LABS: Neutrophils # 10.3 K/mcL (1.6-8.9)
[2017-06-22 07:08] LABS: Anisocytosis 1+ (Not Present); Hypochromasia Present (Not Present); Polychromasia 1+ (Not Present)
[2017-06-22 07:10] LABS: Large Platelets Present (Not Present); Platelet Estimate Normal (Normal)
[2017-06-22] MEDS: Pantoprazole 40 MG VIAL IVP SCH (09:39)
--- NOTE | 2017-06-22 16:32 | General Surgery Progress Note ---
<Colby Solorzano - Last Filed: 06/22/17 16:30> Date of Encounter: 06/22/17 Time of Encounter: 11:00 - Assessment and Plan (1) S/P small bowel resection Current Visit: Yes Status: Acute POD #2 Small bowel resection and peritoneal nodule resection NPO w/ ice chips Clamped NGT Await return of bowel function (2) Hypertension Current Visit: No Status: Chronic Metoprolol and hydralazine as ordered BMP to monitor for electrolyte disturbance, given NGT Qualifiers: Hypertension type: essential hypertension Qualified Code(s): I10 - Essential (primary) hypertension (3) DVT prophylaxis Current Visit: No Status: Acute Continue heparin Subjective Patient reports: no new complaints, flatus (into colostomy bag), no bowel movement, afebrile Objective Vital Signs - Last 8 Hours Temp Pulse Resp BP Pulse Ox 06/22/17 14:52 98.8 F 91 18 173/97 90 06/22/17 10:30 98.0 F 92 18 168/82 94 06/22/17 09:45 93 Intake and Output 06/22/17 06/22/17 06/22/17 07:59 15:59 23:59 Intake Total 916 / 916 Output Total 400 / 400 300 / 300 Balance -400 / -400 616 / 616 Intake: IV Fluids 916 / 916 KCl 20 mEq in 0.9% Sodium 916 / 916 Chloride 20 meq In 1,000 ml @ 100 mls/hr IVC . Q10H [facility] Rx#:[id number] Output: Urine 0 / 0 0 / 0 Stool 0 / 0 Gastric Drainage 400 / 400 300 / 300 Right Nare 400 / 400 Other: Meal NPO # Urine Diapers 1 1 Weight 109.6 kg Blood Glucose* 128 140 Patient Weight 06/22/17 23:59 Weight 109.6 kg - General physical appearance well developed, well nourished, no distress - Eyes normal ocular movement - ENT atraumatic, normocephalic - Neck Neck exam: trachea midline - Respiratory normal expansion, normal respiratory effort, clear to auscultation - Cardiovascular Cardiovascular exam: Present: RRR - Abdomen Abdomen: Present: bowel sounds present, soft, tender (expected postoperative tenderness) - Incision Incision: Present: red - Psychiatric speech is normal - Labs 06/22/17 06:01 06/22/17 06:01 Diabetes panel 06/22/17 Range/Units 06:01 Sodium 148 H (136-145) mEq/L Potassium 4.0 (3.5-4.5) mEq/L Chloride 112 H (98-109) mEq/L Carbon Dioxide 29 (19-29) mEq/L BUN 9 (8-26) mg/dL Creatinine 0.89 (0.72-1.25) mg/dL Glucose 148 H (70-99) mg/dL Calcium 8.4 L (8.6-10.8) mg/dL Calcium panel 06/22/17 Range/Units 06:01 Calcium 8.4 L (8.6-10.8) mg/dL Pituitary panel 06/22/17 Range/Units 06:01 Sodium 148 H (136-145) mEq/L Potassium 4.0 (3.5-4.5) mEq/L Chloride 112 H (98-109) mEq/L Carbon Dioxide 29 (19-29) mEq/L BUN 9 (8-26) mg/dL Creatinine 0.89 (0.72-1.25) mg/dL Glucose 148 H (70-99) mg/dL Calcium 8.4 L (8.6-10.8) mg/dL Adrenal panel 06/22/17 Range/Units 06:01 Sodium 148 H (136-145) mEq/L Potassium 4.0 (3.5-4.5) mEq/L Chloride 112 H (98-109) mEq/L Carbon Dioxide 29 (19-29) mEq/L BUN 9 (8-26) mg/dL Creatinine 0.89 (0.72-1.25) mg/dL Glucose 148 H (70-99) mg/dL Calcium 8.4 L (8.6-10.8) mg/dL - VTE Documentation of Mechanical Device: Intermittent pneumatic compression device Consult Discharge Plan - Plan Referrals: Guillermo Garibay MD [Primary Care Provider] - <Junito Ye - Last Filed: 06/22/17 22:34> Date of Encounter: 06/22/17 Objective Vital Signs - Last 8 Hours Temp Pulse Resp BP Pulse Ox 06/22/17 19:59 99.0 F 84 15 166/66 94 06/22/17 14:52 98.8 F 91 18 173/97 90 Intake and Output 06/22/17 06/22/17 06/22/17 07:59 15:59 23:59 Intake Total 916 / 916 850 / 850 Output Total 400 / 400 300 / 300 150 / 150 Balance -400 / -400 616 / 616 700 / 700 Intake: IV Fluids 916 / 916 850 / 850 KCl 20 mEq in 0.9% Sodium 916 / 916 850 / 850 Chloride 20 meq In 1,000 ml @ 100 mls/hr IVC . Q10H [facility] Rx#:[id number] Oral 0 / 0 Output: Urine 0 / 0 0 / 0 0 / 0 Stool 0 / 0 150 / 150 Gastric Drainage 400 / 400 300 / 300 Right Nare 400 / 400 Other: Meal NPO NPO Percent of Meal Consumed 0% Stool Consistency liquid Stool Color Brown Blood Tinged # Urine Diapers 1 1 1 Weight 109.6 kg Blood Glucose* 128 140 151 Patient Weight 06/22/17 23:59 Weight 109.6 kg - Labs 06/22/17 06:01 06/22/17 06:01 Diabetes panel 06/22/17 Range/Units 06:01 Sodium 148 H (136-145) mEq/L Potassium 4.0 (3.5-4.5) mEq/L Chloride 112 H (98-109) mEq/L Carbon Dioxide 29 (19-29) mEq/L BUN 9 (8-26) mg/dL Creatinine 0.89 (0.72-1.25) mg/dL Glucose 148 H (70-99) mg/dL Calcium 8.4 L (8.6-10.8) mg/dL Calcium panel 06/22/17 Range/Units 06:01 Calcium 8.4 L (8.6-10.8) mg/dL Pituitary panel 06/22/17 Range/Units 06:01 Sodium 148 H (136-145) mEq/L Potassium 4.0 (3.5-4.5) mEq/L Chloride 112 H (98-109) mEq/L Carbon Dioxide 29 (19-29) mEq/L BUN 9 (8-26) mg/dL Creatinine 0.89 (0.72-1.25) mg/dL Glucose 148 H (70-99) mg/dL Calcium 8.4 L (8.6-10.8) mg/dL Adrenal panel 06/22/17 Range/Units 06:01 Sodium 148 H (136-145) mEq/L Potassium 4.0 (3.5-4.5) mEq/L Chloride 112 H (98-109) mEq/L Carbon Dioxide 29 (19-29) mEq/L BUN 9 (8-26) mg/dL Creatinine 0.89 (0.72-1.25) mg/dL Glucose 148 H (70-99) mg/dL Calcium 8.4 L (8.6-10.8) mg/dL - Attending Attestation I examined this patient and my medical decision-making was reviewed with the Resident Physician. I agree with the documented findings, disposition and treatment plan as described except to the extent set forth below. I reviewed the above assessment and evaluation and agree with the above. Will clamp NG tube and start with ambulation and await return of bowel function. Will allow for ice chips every 8 hours.
[2017-06-23] MEDS: *HR* Metoprolol 5 MG/5 ML VIAL IVP SCH ×4 (00:47→18:19)
[2017-06-23 04:27] LABS: BUN/Creatinine Ratio 12 (6-26); Blood Urea Nitrogen 9 mg/dL (8-26); Calcium 8.1 mg/dL (8.6-10.8); Carbon Dioxide 25 mEq/L (19-29); Chloride 111 mEq/L (98-109); Glucose 147 mg/dL (70-99); Osmolality,Calculated 301 (280-300); Potassium 3.7 mEq/L (3.5-4.5); Sodium 145 mEq/L (136-145); eGFR For African Americans > 60 (> 60); eGFR For Non-African Americans > 60 (> 60)
[2017-06-23] MEDS: *HR* Heparin 5,000 UNIT/ML VIAL SQ SCH ×2 (05:36→18:19)
[2017-06-23] MEDS: *HR* HYDROmorphone (PF) 1 MG/ML SYRINGE IVP PRN ×3 (05:36→22:01)
[2017-06-23] MEDS: Pantoprazole 40 MG VIAL IVP SCH (09:53)
--- NOTE | 2017-06-23 13:21 | General Surgery Progress Note ---
<Neil Shearer - Last Filed: 06/23/17 13:35> Date of Encounter: 06/23/17 Time of Encounter: 09:30 - Assessment and Plan (1) S/P small bowel resection Current Visit: Yes Status: Acute Post-op day #4 small bowel resection with resection of peritoneal nodule by Dr. Miller Advance to Clear diet Wound care Colostomy care Ambulate TID as tolerated with assistance Incentive Spirometer 10 breaths TID NGT removed by Dr. Ye (2) Hypertension Current Visit: No Status: Chronic Lopressor 5mg IVP daily Hydralazine 20 mg prn for SBP > 160 Continuous BP monitor Qualifiers: Hypertension type: essential hypertension Qualified Code(s): I10 - Essential (primary) hypertension (3) DVT prophylaxis Current Visit: No Status: Acute Continue Heparin 5000 unit for DVT prophylaxis (4) Drainage from wound Current Visit: Yes Status: Acute Patient's abdominal incision contains drainage Start Zosyn 3.375 gm IVPB q8hr Wound culture and sensitivities Wound care Subjective Patient reports: no new complaints, pain is less, voiding w/o difficulty, flatus , bowel movement, afebrile Objective Vital Signs - Last 8 Hours Temp Pulse Resp BP Pulse Ox 06/23/17 11:17 97.5 F L 94 16 146/80 91 06/23/17 07:25 97.5 F L 77 17 148/75 90 Intake and Output 06/22/17 06/23/17 06/23/17 23:59 07:59 15:59 Intake Total 850 / 850 1000 / 1000 Output Total 150 / 150 0 / 0 0 / 0 Balance 700 / 700 1000 / 1000 0 / 0 Intake: IV Fluids 850 / 850 1000 / 1000 KCl 20 mEq in 0.9% Sodium 850 / 850 1000 / 1000 Chloride 20 meq In 1,000 ml @ 100 mls/hr IVC . Q10H [facility] Rx#:[id number] Oral 0 / 0 0 / 0 Output: Urine 0 / 0 Stool 150 / 150 0 / 0 0 / 0 Gastric Drainage 0 / 0 Other: Meal NPO Percent of Meal Consumed 0% Stool Consistency liquid Stool Color Brown Blood Tinged # Urine Diapers 1 1 0 Weight 110.3 kg Blood Glucose* 151 134 Patient Weight 06/23/17 23:59 Weight 110.3 kg - General physical appearance well developed, well nourished, no distress - Eyes normal ocular movement - ENT atraumatic, normocephalic, CN 2-12 grossly intact - Neck Neck exam: trachea midline - Respiratory normal expansion, normal respiratory effort, clear to auscultation - Cardiovascular Cardiovascular exam: Present: RRR, no murmurs/rubs/gallops - Abdomen Abdomen: Present: bowel sounds present, soft, non tender, wound (Colostomy contains flatus and brown stool ) Hernia: none - Incision Incision: Present: draining (clear drainage), intact - Labs 06/22/17 06:01 06/23/17 03:47 Diabetes panel 06/23/17 Range/Units 03:47 Sodium 145 (136-145) mEq/L Potassium 3.7 (3.5-4.5) mEq/L Chloride 111 H (98-109) mEq/L Carbon Dioxide 25 (19-29) mEq/L BUN 9 (8-26) mg/dL Creatinine 0.78 (0.72-1.25) mg/dL Glucose 147 H (70-99) mg/dL Calcium 8.1 L (8.6-10.8) mg/dL Calcium panel 06/23/17 Range/Units 03:47 Calcium 8.1 L (8.6-10.8) mg/dL Pituitary panel 06/23/17 Range/Units 03:47 Sodium 145 (136-145) mEq/L Potassium 3.7 (3.5-4.5) mEq/L Chloride 111 H (98-109) mEq/L Carbon Dioxide 25 (19-29) mEq/L BUN 9 (8-26) mg/dL Creatinine 0.78 (0.72-1.25) mg/dL Glucose 147 H (70-99) mg/dL Calcium 8.1 L (8.6-10.8) mg/dL Adrenal panel 06/23/17 Range/Units 03:47 Sodium 145 (136-145) mEq/L Potassium 3.7 (3.5-4.5) mEq/L Chloride 111 H (98-109) mEq/L Carbon Dioxide 25 (19-29) mEq/L BUN 9 (8-26) mg/dL Creatinine 0.78 (0.72-1.25) mg/dL Glucose 147 H (70-99) mg/dL Calcium 8.1 L (8.6-10.8) mg/dL - VTE Documentation of Mechanical Device: Graduated compression elastic hosiery Consult Discharge Plan - Plan Referrals: Guillermo Garibay MD [Primary Care Provider] - <EphraimJunito M - Last Filed: 06/24/17 06:37> Date of Encounter: 06/23/17 Objective Vital Signs - Last 8 Hours Temp Pulse Resp BP Pulse Ox 06/24/17 04:20 97.5 F L 91 14 144/82 93 06/24/17 00:44 98.6 F 100 14 131/77 93 Intake and Output 06/23/17 06/23/17 06/24/17 15:59 23:59 07:59 Intake Total 840 / 840 100 / 100 340 / 340 Output Total 900 / 900 450 / 450 200 / 200 Balance -60 / -60 -350 / -350 140 / 140 Intake: IV Fluids 100 / 100 100 / 100 Zosyn 3.375 GM In 100 / 100 100 / 100 Dextrose 5% (Minibag+) 100 ML 100 ML @ 25 mls/hr IVPB Q8HR [facility] Rx#: [id number] Oral 840 / 840 0 / 0 240 / 240 Output: Urine 0 / 0 0 / 0 Stool 900 / 900 450 / 450 200 / 200 Other: Meal Lunch Stool Consistency liquid Stool Color Brown Brown # Urine Diapers 1 1 Weight 110.178 kg Patient Weight 06/24/17 23:59 Weight 110.178 kg - Labs 06/24/17 04:49 06/24/17 04:49 Diabetes panel 06/24/17 Range/Units 04:49 Sodium 142 (136-145) mEq/L Potassium 3.4 L (3.5-4.5) mEq/L Chloride 108 (98-109) mEq/L Carbon Dioxide 27 (19-29) mEq/L BUN 6 L (8-26) mg/dL Creatinine 0.82 (0.72-1.25) mg/dL Glucose 151 H (70-99) mg/dL Calcium 8.1 L (8.6-10.8) mg/dL Calcium panel 06/24/17 Range/Units 04:49 Calcium 8.1 L (8.6-10.8) mg/dL Pituitary panel 06/24/17 Range/Units 04:49 Sodium 142 (136-145) mEq/L Potassium 3.4 L (3.5-4.5) mEq/L Chloride 108 (98-109) mEq/L Carbon Dioxide 27 (19-29) mEq/L BUN 6 L (8-26) mg/dL Creatinine 0.82 (0.72-1.25) mg/dL Glucose 151 H (70-99) mg/dL Calcium 8.1 L (8.6-10.8) mg/dL Adrenal panel 06/24/17 Range/Units 04:49 Sodium 142 (136-145) mEq/L Potassium 3.4 L (3.5-4.5) mEq/L Chloride 108 (98-109) mEq/L Carbon Dioxide 27 (19-29) mEq/L BUN 6 L (8-26) mg/dL Creatinine 0.82 (0.72-1.25) mg/dL Glucose 151 H (70-99) mg/dL Calcium 8.1 L (8.6-10.8) mg/dL - Attending Attestation I examined this patient and my medical decision-making was reviewed with the Resident Physician. I agree with the documented findings, disposition and treatment plan as described except to the extent set forth below. I reviewed the above assessment and evaluation and agreed to the above plan. The NG tube removed at bedside and will start clear liquids. Encourage ambulation. Await return of bowel function.
[2017-06-23] MEDS: Piperacillin/Tazobactam 3.375 GM in D5% in Water (Mini-Bag+) 100 ML IVPB SCH (15:57)
[2017-06-24] MEDS: Piperacillin/Tazobactam 3.375 GM in D5% in Water (Mini-Bag+) 100 ML IVPB SCH ×3 (00:50→21:40)
[2017-06-24] MEDS: *HR* Metoprolol 5 MG/5 ML VIAL IVP SCH ×4 (00:50→18:52)
[2017-06-24] MEDS: 0.9 % Sodium Chloride w KCl 20 MEQ/1,000 ML MLS IVC SCH ×2 (00:50→15:04)
[2017-06-24] MEDS: *HR* HYDROmorphone (PF) 1 MG/ML SYRINGE IVP PRN ×4 (00:51→21:39)
[2017-06-24] MEDS: *HR* Heparin 5,000 UNIT/ML VIAL SQ SCH ×2 (05:57→17:48)
[2017-06-24 06:02] LABS: BUN/Creatinine Ratio 7 (6-26); Blood Urea Nitrogen 6 mg/dL (8-26); Calcium 8.1 mg/dL (8.6-10.8); Carbon Dioxide 27 mEq/L (19-29); Chloride 108 mEq/L (98-109); Glucose 151 mg/dL (70-99); Osmolality,Calculated 295 (280-300); Potassium 3.4 mEq/L (3.5-4.5); Sodium 142 mEq/L (136-145); eGFR For African Americans > 60 (> 60); eGFR For Non-African Americans > 60 (> 60)
[2017-06-24 06:03] LABS: Basophils % 0.4 %; Eosinophils # 0.2 K/mcL (0.0-0.6); Eosinophils % 2.6 %; Hematocrit 31.8 % (37.5-50.1); Hemoglobin 9.7 g/dL (12.9-16.9); Immature Granulocytes % 0.5 % (0-4); Lymphocytes # 0.9 K/mcL (0.6-4.6); Lymphocytes % 11.3 %; Mean Corpuscular HGB Conc 30.5 g/dL (31.6-35.5); Mean Corpuscular Hemoglobin 29.8 pg (28.0-33.3); Mean Corpuscular Volume 97.5 fL (83.0-100.0); Mean Platelet Volume 10.9 fL (9.4-12.4); Monocytes # 0.8 K/mcL (0.0-1.3); Monocytes % 9.5 %; Platelet Count 181 K/mcL (140-400); Red Blood Count 3.26 M/mcL (4.19-5.50); Red Cell Distribution Width 14.8 % (11.5-14.5); Segmented Neutrophils % 75.7 %
--- NOTE | 2017-06-24 07:05 | General Surgery Progress Note ---
<Junito Ye - Last Filed: 06/25/17 07:08> Date of Encounter: 06/24/17 Objective Vital Signs - Last 8 Hours Temp Pulse Resp BP Pulse Ox 06/24/17 10:55 98.1 F 84 12 133/74 94 06/24/17 06:57 98.3 F 92 16 116/73 94 Intake and Output 06/23/17 06/24/17 06/24/17 23:59 07:59 15:59 Intake Total 100 / 100 340 / 340 2720 / 2720 Output Total 450 / 450 200 / 200 475 / 475 Balance -350 / -350 140 / 140 2245 / 2245 Intake: IV Fluids 100 / 100 100 / 100 Zosyn 3.375 GM In 100 / 100 100 / 100 Dextrose 5% (Minibag+) 100 ML 100 ML @ 25 mls/hr IVPB Q8HR [facility] Rx#: [id number] Oral 0 / 0 240 / 240 2720 / 2720 Output: Urine 0 / 0 0 / 0 Stool 450 / 450 200 / 200 475 / 475 Other: Meal Clear Percent of Meal Consumed 100% Stool Consistency liquid liquid Stool Color Brown Brown Brown # Urine Diapers 1 1 0 Weight 110.178 kg Blood Glucose* 218 Patient Weight 06/24/17 23:59 Weight 110.178 kg - Labs 06/24/17 04:49 06/24/17 04:49 Diabetes panel 06/24/17 Range/Units 04:49 Sodium 142 (136-145) mEq/L Potassium 3.4 L (3.5-4.5) mEq/L Chloride 108 (98-109) mEq/L Carbon Dioxide 27 (19-29) mEq/L BUN 6 L (8-26) mg/dL Creatinine 0.82 (0.72-1.25) mg/dL Glucose 151 H (70-99) mg/dL Calcium 8.1 L (8.6-10.8) mg/dL Calcium panel 06/24/17 Range/Units 04:49 Calcium 8.1 L (8.6-10.8) mg/dL Pituitary panel 06/24/17 Range/Units 04:49 Sodium 142 (136-145) mEq/L Potassium 3.4 L (3.5-4.5) mEq/L Chloride 108 (98-109) mEq/L Carbon Dioxide 27 (19-29) mEq/L BUN 6 L (8-26) mg/dL Creatinine 0.82 (0.72-1.25) mg/dL Glucose 151 H (70-99) mg/dL Calcium 8.1 L (8.6-10.8) mg/dL Adrenal panel 06/24/17 Range/Units 04:49 Sodium 142 (136-145) mEq/L Potassium 3.4 L (3.5-4.5) mEq/L Chloride 108 (98-109) mEq/L Carbon Dioxide 27 (19-29) mEq/L BUN 6 L (8-26) mg/dL Creatinine 0.82 (0.72-1.25) mg/dL Glucose 151 H (70-99) mg/dL Calcium 8.1 L (8.6-10.8) mg/dL Consult Discharge Plan - Plan [facility] [place] [Primary Care Provider] - - Attending Attestation I examined this patient and my medical decision-making was reviewed with the Resident Physician. I agree with the documented findings, disposition and treatment plan as described except to the extent set forth below. Review the above assessment and evaluation and agree with the above plan. Will advance diet to soft foods. Will make sure that the incision is packed and change once a day. Will verify that IV antibiotics have been initiated. <Neil Shearer - Last Filed: 06/25/17 13:03> Date of Encounter: 06/25/17 Time of Encounter: 06:00 - Assessment and Plan (1) S/P small bowel resection Current Visit: Yes Status: Acute Post-op day #5 small bowel resection with resection of peritoneal nodule by Dr. Miller Consider advance to Regular diet Wound care Colostomy care Ambulate TID as tolerated with assistance Incentive Spirometer 10 breaths TID (2) Hypertension Current Visit: No Status: Chronic Currently 116/73. Hypertension is well managed. Continue blood pressure medications. Qualifiers: Hypertension type: essential hypertension Qualified Code(s): I10 - Essential (primary) hypertension (3) DVT prophylaxis Current Visit: No Status: Acute Continue Heparin 5000 unit for DVT prophylaxis (4) Drainage from wound Current Visit: Yes Status: Acute Incision is clean and dry today. Continue Zosyn 3.375 gm IVPB q8hr Pending wound culture and sensitivities Wound care Subjective Patient reports: no new complaints, tolerating liquids well, voiding w/o difficulty, flatus, bowel movement, afebrile Objective Vital Signs - Last 8 Hours Temp Pulse Resp BP Pulse Ox 06/24/17 06:57 98.3 F 92 16 116/73 94 06/24/17 04:20 97.5 F L 91 14 144/82 93 06/24/17 00:44 98.6 F 100 14 131/77 93 Intake and Output 06/23/17 06/23/17 06/24/17 15:59 23:59 07:59 Intake Total 840 / 840 100 / 100 340 / 340 Output Total 900 / 900 450 / 450 200 / 200 Balance -60 / -60 -350 / -350 140 / 140 Intake: IV Fluids 100 / 100 100 / 100 Zosyn 3.375 GM In 100 / 100 100 / 100 Dextrose 5% (Minibag+) 100 ML 100 ML @ 25 mls/hr IVPB Q8HR [facility] Rx#: [id number] Oral 840 / 840 0 / 0 240 / 240 Output: Urine 0 / 0 0 / 0 Stool 900 / 900 450 / 450 200 / 200 Other: Meal Lunch Stool Consistency liquid Stool Color Brown Brown # Urine Diapers 1 1 0 Weight 110.178 kg Patient Weight 06/24/17 23:59 Weight 110.178 kg - General physical appearance well developed, well nourished, no distress - Eyes normal ocular movement - ENT normal pinna, normal nares, atraumatic, normocephalic, CN 2-12 grossly intact - Neck Neck exam: trachea midline - Respiratory normal expansion, normal respiratory effort, clear to auscultation - Cardiovascular Cardiovascular exam: Present: RRR, no murmurs/rubs/gallops - Abdomen Abdomen: Present: bowel sounds present, soft, non tender, wound (Colostomy bag ( cleaned this a.m. Currently empty) ) - Incision Incision: Present: clean and dry (No drainage. Improved from yesterday), intact - Labs 06/24/17 04:49 06/24/17 04:49 Diabetes panel 06/24/17 Range/Units 04:49 Sodium 142 (136-145) mEq/L Potassium 3.4 L (3.5-4.5) mEq/L Chloride 108 (98-109) mEq/L Carbon Dioxide 27 (19-29) mEq/L BUN 6 L (8-26) mg/dL Creatinine 0.82 (0.72-1.25) mg/dL Glucose 151 H (70-99) mg/dL Calcium 8.1 L (8.6-10.8) mg/dL Calcium panel 06/24/17 Range/Units 04:49 Calcium 8.1 L (8.6-10.8) mg/dL Pituitary panel 06/24/17 Range/Units 04:49 Sodium 142 (136-145) mEq/L Potassium 3.4 L (3.5-4.5) mEq/L Chloride 108 (98-109) mEq/L Carbon Dioxide 27 (19-29) mEq/L BUN 6 L (8-26) mg/dL Creatinine 0.82 (0.72-1.25) mg/dL Glucose 151 H (70-99) mg/dL Calcium 8.1 L (8.6-10.8) mg/dL Adrenal panel 06/24/17 Range/Units 04:49 Sodium 142 (136-145) mEq/L Potassium 3.4 L (3.5-4.5) mEq/L Chloride 108 (98-109) mEq/L Carbon Dioxide 27 (19-29) mEq/L BUN 6 L (8-26) mg/dL Creatinine 0.82 (0.72-1.25) mg/dL Glucose 151 H (70-99) mg/dL Calcium 8.1 L (8.6-10.8) mg/dL - VTE Documentation of Mechanical Device: Graduated compression elastic hosiery
[2017-06-24] MEDS: Pantoprazole 40 MG VIAL IVP SCH (09:14)
[2017-06-25] MEDS: 0.9 % Sodium Chloride w KCl 20 MEQ/1,000 ML MLS IVC SCH ×4 (00:06→21:09)
[2017-06-25] MEDS: *HR* Metoprolol 5 MG/5 ML VIAL IVP SCH ×5 (00:08→23:52)
[2017-06-25] MEDS: *HR* HYDROmorphone (PF) 1 MG/ML SYRINGE IVP PRN ×6 (02:32→21:00)
[2017-06-25] MEDS: *HR* Heparin 5,000 UNIT/ML VIAL SQ SCH ×2 (05:06→17:43)
[2017-06-25] MEDS: Piperacillin/Tazobactam 3.375 GM in D5% in Water (Mini-Bag+) 100 ML IVPB SCH ×3 (05:06→20:59)
[2017-06-25] MEDS: Pantoprazole 40 MG VIAL IVP SCH (07:26)
--- NOTE | 2017-06-25 11:39 | General Surgery Progress Note ---
<Neil Shearer - Last Filed: 06/25/17 14:56> Date of Encounter: 06/25/17 Time of Encounter: 08:30 - Assessment and Plan (1) S/P small bowel resection Current Visit: Yes Status: Acute Post-op day #6 small bowel resection with resection of peritoneal nodule by Dr. Miller Tolerating Regular diet Wound care Colostomy care Ambulate TID as tolerated with assistance Incentive Spirometer 10 breaths TID Wound culture positive for enterococcus, beta-lactamase negative Continue IV antibiotics at this time. Consider d/c tomorrow. Change to PO antibiotics tomorrow (2) Hypertension Current Visit: No Status: Chronic Hypertension is well managed. Continue blood pressure medications. Qualifiers: Hypertension type: essential hypertension Qualified Code(s): I10 - Essential (primary) hypertension (3) DVT prophylaxis Current Visit: No Status: Acute Continue Heparin 5000 unit for DVT prophylaxis (4) Drainage from wound Current Visit: Yes Status: Acute Incision is draining today Clean incision with Hibiclens daily. 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: without intermodal truck driver use Qualified Code(s): E11.8 - Type 2 diabetes mellitus with unspecified complications (6) Discharge planning issues Current Visit: Yes 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 Q10H [facility] Rx#:[id number] Zosyn 3.375 GM In 100 / 100 100 / 100 100 / 100 Dextrose 5% (Minibag+) 100 ML 100 ML @ 25 mls/hr IVPB Q8H [facility] Rx#: [id number] Oral 360 / 360 240 / 240 360 / 360 Output: Urine 0 / 0 Stool 750 / 750 100 / 100 Other: Meal Dinner Breakfast Percent of Meal Consumed 80% 100% Stool Size Small Stool Consistency liquid loose Stool Color Brown Brown # Voids 2 # Urine Diapers 1 Weight 111.61 kg Blood Glucose* 187 165 Patient Weight 06/25/17 23:59 Weight 111.61 kg - General physical appearance well developed, well nourished, no distress - Eyes normal ocular movement - ENT atraumatic, normocephalic, CN 2-12 grossly intact - Neck Neck exam: trachea midline - Respiratory normal expansion, normal respiratory effort, clear to percussion, clear to auscultation - Cardiovascular Cardiovascular exam: Present: RRR, no murmurs/rubs/gallops - Abdomen Abdomen: Present: bowel sounds present, soft, non tender, wound (colostomy pink , flatus and brown stool present ) - Incision Incision: Present: draining, intact - Labs 06/24/17 04:49 06/24/17 04:49 - VTE Documentation of Mechanical Device: Graduated compression elastic hosiery Consult Discharge Plan - Plan Referrals: Guillermo Garibay MD [Primary Care Provider] - <Junito Ye - Last Filed: 06/26/17 07:28> Date of Encounter: 06/25/17 Objective Vital Signs - Last 8 Hours Temp Pulse Resp BP Pulse Ox 06/26/17 05:31 98.6 F 85 14 162/79 93 06/26/17 04:00 98.7 F 87 14 147/82 95 06/26/17 00:25 98.7 F 87 14 147/82 95 Intake and Output 06/25/17 06/25/17 06/26/17 15:59 23:59 07:59 Intake Total 1700 / 1700 1100 / 1100 1340 / 1340 Output Total 150 / 150 700 / 700 100 / 100 Balance 1550 / 1550 400 / 400 1240 / 1240 Intake: IV Fluids 1100 / 1100 1100 / 1100 1100 / 1100 KCl 20 mEq in 0.9% Sodium 1000 / 1000 1000 / 1000 1000 / 1000 Chloride 20 meq In 1,000 ml @ 100 mls/hr IVC . Q10H [facility] Rx#:[id number] Zosyn 3.375 GM In 100 / 100 100 / 100 100 / 100 Dextrose 5% (Minibag+) 100 ML 100 ML @ 25 mls/hr IVPB Q8H [facility] Rx#: [id number] Oral 600 / 600 0 / 0 240 / 240 Output: Urine 0 / 0 0 / 0 Stool 150 / 150 700 / 700 100 / 100 Other: Meal Lunch Dinner Percent of Meal Consumed 50% 100% Stool Consistency liquid liquid soft Stool Color Brown Brown Pale # Urine Diapers 1 2 Weight 111.584 kg Blood Glucose* 266 317 Patient Weight 06/26/17 23:59 Weight 111.584 kg - Labs 06/24/17 04:49 06/24/17 04:49 - Attending Attestation I examined this patient and my medical decision-making was reviewed with the Resident Physician. I agree with the documented findings, disposition and treatment plan as described except to the extent set forth below. Review the above assessment and evaluation with the resident present. We will start discharge planning for tomorrow. Set up for home discharge with home health and physical therapy. Additionally, patient will need oral antibiotics.
[2017-06-25] MEDS: *HR* Glimepiride 4 MG TABLET PO SCH (17:44)
[2017-06-25] MEDS: *HR* SitaGLIPtin 100 MG TABLET PO SCH (17:44)
[2017-06-26] MEDS: *HR* HYDROmorphone (PF) 1 MG/ML SYRINGE IVP PRN ×3 (04:15→12:45)
[2017-06-26] MEDS: Piperacillin/Tazobactam 3.375 GM in D5% in Water (Mini-Bag+) 100 ML IVPB SCH ×2 (04:15→12:46)
[2017-06-26] MEDS: *HR* Metoprolol 5 MG/5 ML VIAL IVP SCH ×2 (04:15→12:45)
[2017-06-26] MEDS: *HR* Heparin 5,000 UNIT/ML VIAL SQ SCH (06:22)
[2017-06-26] MEDS: 0.9 % Sodium Chloride w KCl 20 MEQ/1,000 ML MLS IVC SCH (06:57)
[2017-06-26] MEDS ORDERED: *HR* SitaGLIPtin 100 MG TABLET PO SCH (09:00)
[2017-06-26] MEDS ORDERED: *HR* Glimepiride 4 MG TABLET PO SCH (09:00)
--- NOTE | 2017-06-26 09:17 | Event Note ---
Date of Encounter: 06/26/17 Time of Encounter: 09:13 - Patient Status Condition: Good - Discharge Instructions Follow Up With: Guillermo Garibay MD [Primary Care Provider] - Junito Ye MD [Partnered Physician] - 07/03/17 9:00 am
[2017-06-26] MEDS: *HR* SitaGLIPtin 100 MG TABLET PO SCH (09:25)
[2017-06-26] MEDS: *HR* Glimepiride 4 MG TABLET PO SCH (09:25)
[2017-06-26] MEDS: Pantoprazole 40 MG VIAL IVP SCH (09:25)
--- NOTE | 2017-06-26 09:33 | Discharge Summary ---
<Neil Shearer - Last Filed: 06/26/17 10:49> Date of Encounter: 06/26/17 Time of Encounter: 09:30 - Discharge Diagnosis (1) S/P small bowel resection Priority: Primary Status: Acute (2) Hypertension Priority: Secondary Status: Chronic Qualifiers: Hypertension type: essential hypertension Qualified Code(s): I10 - Essential (primary) hypertension (3) Drainage from wound Status: Acute (4) Diabetes mellitus Priority: Secondary Status: Chronic Qualifiers: Diabetes mellitus type: type 2 Diabetes mellitus complication status: with unspecified complications Diabetes mellitus usp insulin use: without usp use Qualified Code(s): E11.8 - Type 2 diabetes mellitus with unspecified complications (5) DVT prophylaxis Status: Acute - Discharge Medications Prescriptions: Amoxicillin/Clavulanate [Augmentin] 875 mg PO BIDWM #30 tablet Docusate Sodium [Colace] 100 mg PO BID #60 Oxycodone HCl/Acetaminophen [Percocet 10-325 mg Tablet] 1 each PO PRN PRN #25 tablet PRN Reason: Post-surgical pain Home Medications: Atorvastatin [Lipitor] 40 mg PO DAILY 09/22/15 [History] Ferrous Sulfate 325 mg PO BID 09/22/15 [History] Furosemide [Lasix] 40 mg PO DAILY 09/22/15 [History] Glimepiride [Amaryl] 4 mg PO DAILY 09/22/15 [History] Potassium Chloride 40 meq PO DAILY 09/22/15 [History] Docusate [Colace] 100 mg PO BID #60 capsule 09/30/15 [Rx] Folic Acid 1 mg PO DAILY #30 tablet 11/01/15 [Rx] Metoprolol [Lopressor] 25 mg PO DAILY 05/14/16 [History] SitaGLIPtin [Januvia] 100 mg PO DAILY 05/14/16 [History] Albuterol Sulfate [Proair Hfa] 2 puff IH Q4H PRN 06/07/16 [History] Aspirin 81 mg PO DAILY 08/13/16 [History] Diltiazem HCl [Diltiazem 24Hr Cd] 120 mg PO DAILY 03/19/17 [History] Metformin HCl [Glucophage] 1,000 mg PO BID 06/13/17 [History] Cephalexin [Keflex] 500 mg PO BID #14 capsule 06/17/17 [Rx] Amoxicillin/Clavulanate [Augmentin] 875 mg PO BIDWM #30 tablet 06/26/17 [Rx] Docusate Sodium [Colace] 100 mg PO BID #60 06/26/17 [Rx] Oxycodone HCl/Acetaminophen [Percocet 10-325 mg Tablet] 1 each PO PRN PRN #25 tablet 06/26/17 [Rx] Allergies/Adverse Reactions: Allergies No Known Allergies Allergy (Verified 06/18/17 09:40) General Surgery Exam Initial Vital Signs Temp Pulse Resp BP Pulse Ox 97.4 F L 87 18 152/88 98 06/18/17 08:54 06/18/17 08:54 06/18/17 08:54 06/18/17 08:54 06/18/17 08:54 - General physical appearance well developed, well nourished, no distress - Eyes normal ocular movement - ENT atraumatic, normocephalic, CN 2-12 grossly intact - Neck trachea midline, no lymphadectomy - Respiratory normal expansion, normal respiratory effort, clear to percussion, clear to auscultation - Cardiovascular Cardiovascular exam: Present: RRR, no murmurs/rubs/gallops - Abdomen Abdomen general surgery: Present: bowel sounds present, soft, non tender, tender (as expected from surgery), wound (colostomy with flatus and stool) - Incision Incision: Present: clean and dry, intact - Musculoskeletal Present: normal gait Date of admission: 06/18/17 17:58 Primary care physician: Guillermo Garibay MD Consults: 06/24/17 15:13 Consult to Physical Therapy [CONS] Routine Comment: Evaluate, develop and implement POC Reason for Consult: discharge planning OT [Consult to Occupational Therapy] [CONS] Routine Comment: Evaluate, develop and implement POC Reason for Consult: discharge planning Discharging clinician: Neil Shearer Anticipated date of discharge: 06/26/17 - Patient Status Disposition: Transfer Inpatient Rehab Fac Condition: Good Functional capacity at discharge: independent ambulation Overall status at discharge: patient is back to baseline - Discharge Instructions Instructions: Bowel Obstruction (DC) Follow Up With: Guillermo Garibay MD [Primary Care Provider] - Renaldo Miller MD [Partnered Physician] - 07/09/17 (07/09/17 at 12:30p ) - Diet and Activity Activity: as per physical therapy, increase activity as tolerated Diet: diabetic diet - Hospital Course Hospital course: Mr. Mccain is a 71 year old male status-post day #7 small bowel resection and peritoneal nodule resection by Dr. Miller secondary to multiple incidents of SBO this year. He has a past medical history of recurrent small bowel obstructions, type 2 diabetes, hypertension, atrial fibrillation, colon cancer s/p colectomy, COPD who presented on 06/18/17 for diffuse abdominal pain. The patient recovered well post-surgery and has gradually advanced to regular diet. He is able to ambulate TID without trouble. He denies fever, chills, nausea, vomiting , shortness of breath, diarrhea, constipation. On 06/23/17, there was drainage from his incision which tested positive to Enterococcus. He was subsequently started on zosyn. His colostomy and wound are well taken care of. He has agreed to go to Rehab after discharge for PT. Time spent discussing smoking cessation with patient: 3 to 10 minutes - Time Spent with Patient Total time spent providing and/or coordinating discharge services: Greater than 30 minutes Labs on day of discharge: Labs from last 24 hours 06/26/17 06/25/17 06/25/17 08:53 16:30 12:04 POC Glucose 128 H 317 H 266 H 06/25/17 07:42 POC Glucose 165 H <Junito Ye - Last Filed: 06/26/17 14:47> Date of Encounter: 06/26/17 General Surgery Exam Initial Vital Signs Temp Pulse Resp BP Pulse Ox 97.4 F L 87 18 152/88 98 06/18/17 08:54 06/18/17 08:54 06/18/17 08:54 06/18/17 08:54 06/18/17 08:54 Date of admission: 06/18/17 17:58 Primary care physician: Guillermo Garibay MD Consults: 06/24/17 15:13 Consult to Physical Therapy [CONS] Routine Comment: Evaluate, develop and implement POC Reason for Consult: discharge planning OT [Consult to Occupational Therapy] [CONS] Routine Comment: Evaluate, develop and implement POC Reason for Consult: discharge planning - Hospital Course Hospital course: Mr. Mccain is a 71 year old male - Time Spent with Patient Total time spent providing and/or coordinating discharge services: Labs on day of discharge: Labs from last 24 hours 06/26/17 06/26/17 06/25/17 12:28 08:53 16:30 POC Glucose 216 H 128 H 317 H 06/25/17 07:42 POC Glucose 165 H - Attending Attestation I examined this patient and my medical decision-making was reviewed with the Resident Physician. I agree with the documented findings, disposition and treatment plan as described except to the extent set forth below. I reviewed the above and agree with the above plan.
--- NOTE | 2017-06-26 11:02 | Physician Discharge Referral ---
ExtendedCare Referral Info [facility] Provider in Charge after Transfer: PCP - Diagnosis (1) S/P small bowel resection Priority: Primary Status: Acute (2) Hypertension Priority: Secondary Status: Chronic (3) Drainage from wound Priority: Secondary Status: Acute (4) Diabetes mellitus Priority: Secondary Status: Chronic Expected Duration of Placement: 4 days Prognosis: Good Aware of Diagnosis: Patient, Family Aware of Prognosis: Patient, Family - Transfer Medications Prescriptions: Amoxicillin/Clavulanate [Augmentin] 875 mg PO BIDWM #30 tablet Docusate Sodium [Colace] 100 mg PO BID #60 Oxycodone HCl/Acetaminophen [Percocet 10-325 mg Tablet] 1 each PO PRN PRN #25 tablet PRN Reason: Post-surgical pain Home Medications: Atorvastatin [Lipitor] 40 mg PO DAILY 09/22/15 [History] Ferrous Sulfate 325 mg PO BID 09/22/15 [History] Furosemide [Lasix] 40 mg PO DAILY 09/22/15 [History] Glimepiride [Amaryl] 4 mg PO DAILY 09/22/15 [History] Potassium Chloride 40 meq PO DAILY 09/22/15 [History] Docusate [Colace] 100 mg PO BID #60 capsule 09/30/15 [Rx] Folic Acid 1 mg PO DAILY #30 tablet 11/01/15 [Rx] Metoprolol [Lopressor] 25 mg PO DAILY 05/14/16 [History] SitaGLIPtin [Januvia] 100 mg PO DAILY 05/14/16 [History] Albuterol Sulfate [Proair Hfa] 2 puff IH Q4H PRN 06/07/16 [History] Aspirin 81 mg PO DAILY 08/13/16 [History] Diltiazem HCl [Diltiazem 24Hr Cd] 120 mg PO DAILY 03/19/17 [History] Metformin HCl [Glucophage] 1,000 mg PO BID 06/13/17 [History] Cephalexin [Keflex] 500 mg PO BID #14 capsule 06/17/17 [Rx] Amoxicillin/Clavulanate [Augmentin] 875 mg PO BIDWM #30 tablet 06/26/17 [Rx] Docusate Sodium [Colace] 100 mg PO BID #60 06/26/17 [Rx] Oxycodone HCl/Acetaminophen [Percocet 10-325 mg Tablet] 1 each PO PRN PRN #25 tablet 06/26/17 [Rx] Allergies/Adverse Reactions: Allergies No Known Allergies Allergy (Verified 06/18/17 09:40) - Respiratory Orders None Smoking Cessation: Smoking cessation has been advised. For more information, call the [place] Tobacco Quit Line at 2-750-AWLS-NOW. - Diet Orders Regular CERTIFICATION: I certify that the transfer of the above named patient to an Extended Care Facility is necessary for the continuing treatment of the diagnosis listed. The above information is true and accurate reflection of patient's current condition. Confidential - Redisclosure prohibited without a patient's written consent.
[2017-06-26 15:42] VITALS: BP 150/84
== END 2017-06-26 17:25 | disposition home health service (06) | DRG 331 ==
LOC: 3ANU 08:50 → EMEROO 08:50 → 3ANU 13:06
PROVIDERS: ADMIT Nurse Practitioner Family; ATTEND Internal Medicine

== ENCOUNTER 2017-08-01 10:06 | Inpatient (IN) ==
[2017-08-01] MEDS ORDERED: Aspirin 81 MG TAB.CHEW PO STA (10:30)
[2017-08-01] MEDS ORDERED: Ipratropium/Albuterol Neb 3 ML IH STA (10:52)
[2017-08-01] MEDS ORDERED: predniSONE 20 MG TABLET PO STA (10:52)
--- NOTE | 2017-08-01 10:56 | Emergency Department Note ---
Disposition Clinical Impression: COPD with acute exacerbation, Abnormal CXR Disposition: Admitted As Inpatient General Adult HPI - General Chief complaint: ED Shortness of Breath/Dyspnea Stated complaint: JOSR Time Seen by Provider: 08/01/17 10:28 Source: patient Limitations: no limitations - History of Present Illness HPI Narrative: Somewhat poor historian presents with shortness of breath. Says his been worse for about 6 months, but has progressed further over the last 4-5 days. Cough is increased from baseline. No fever. No chest pain. Not getting relief from his home MDI treatments. Not currently on prednisone, cannot remember the last time he was on steroids. Last hospitalization was a few months ago. He has been vomiting twice a day for the last couple of days, nonbloody, nonbilious. No diarrhea. No abdominal pain. No lower extremity pain or swelling. Pain Scale: 10 - Related Data Home Medications Medication Instructions Recorded Confirmed Atorvastatin [Lipitor] 40 mg PO DAILY 09/22/15 08/01/17 Ferrous Sulfate 325 mg PO BID 09/22/15 08/01/17 Furosemide [Lasix] 40 mg PO DAILY 09/22/15 08/01/17 Glimepiride [Amaryl] 4 mg PO DAILY 09/22/15 08/01/17 Potassium Chloride 40 meq PO DAILY 09/22/15 08/01/17 Metoprolol [Lopressor] 25 mg PO DAILY 05/14/16 08/01/17 SitaGLIPtin [Januvia] 100 mg PO DAILY 05/14/16 08/01/17 Albuterol Sulfate [Proair Hfa] 2 puff IH Q4H PRN 06/07/16 08/01/17 Aspirin 81 mg PO DAILY 08/13/16 08/01/17 Diltiazem HCl [Diltiazem 24Hr Cd] 120 mg PO DAILY 03/19/17 08/01/17 Metformin HCl [Glucophage] 1,000 mg PO BID 06/13/17 08/01/17 Ranitidine HCl [Zantac] 150 mg PO BID PRN 07/08/17 08/01/17 Fluticasone/Salmeterol [Advair Hfa 2 puff IH BID 08/01/17 08/01/17 115-21 Mcg Inhaler] Previous Rx's Medication Instructions Recorded Folic Acid 1 mg PO DAILY #30 tablet 11/01/15 Docusate Sodium [Colace] 100 mg PO BID #60 06/26/17 Albuterol Sulfate [Albuterol 2 puff IH Q4HR #1 hfa.aer.ad 07/12/17 Inhaler] Allergies Allergy/AdvReac Type Severity Reaction Status Date / Time No Known Allergies Allergy Verified 07/08/17 10:24 All systems ED: reviewed and negative except as stated. Past Medical History - Past Medical History Medical history: Reports: asthma, atrial fibrillation, cancer (Prostate cancer, has not had problems with this in years.), diabetes, hyperlipidemia, hypertension, other (Nerve damage to his right hand after punching a window years ago) Surgical history: Reports: carotid endarterectomy, cholecystectomy, colectomy, colostomy (Sounds as though this was done as a diverting colostomy due to his prostate cancer and radiation.), prostatectomy, other Psychiatric history: Reports: no psych history - Social History Smoking Status: Former smoker Smokeless Tobacco Status: No Alcohol use: Reports: none Drug use: Reports: none Physical Exam - General Limitations: no limitations General appearance: alert, in no apparent distress - Head Head exam: atraumatic, normocephalic - Eye Eye exam: Present: normal appearance. Absent: scleral icterus - ENT ENT exam: normal exam, mucous membranes moist - Neck Neck exam: Present: normal inspection, other (No JVD, no hepatojugular reflux) - Chest Chest inspection: Present: normal inspection, symmetric chest wall rise. Absent : rash - Respiratory Respiratory exam: Present: other (Qosf-ic-twjurppq tachypnea, no appreciable prolongation of the expiratory phase. Expiratory rhonchi with an extra toward wheezing in the lower two thirds of both lung vlilanueva, symmetrical from right to left. Minimal conversational dyspnea, speaks in phrases in short sentences.) - Cardiovascular Cardiovascular exam: Present: tachycardia (Regular) - Abdominal Exam Abdominal exam: Present: soft, other (Nontender, nondistended, no guarding or peritoneal signs. Colostomy is noted on the right with brown stool.) - Extremities Exam Extremities exam: Present: other (Trace edema bilaterally. No signs of DVT.) - Neurological Exam Neurological exam: Present: alert (Normal speech and mental status. Flexion contracture and associated atrophy of the right hand due to his previous injury. No other focal deficit noted.) - Psychiatric Psychiatric exam: Present: normal affect, normal mood. Absent: agitated, anxious - Skin Skin exam: Present: warm, dry, intact, normal color. Absent: rash, cyanosis, diaphoresis, erythema, pallor, mottled Course - Reevaluation(s) Reevaluation #1: Patient feeling jittery and would like a break from nebulizer treatments after 3 DuoNeb's and 3 albuterol nebulizers. Heart rate currently high 130s/low 140s. Breath sounds minimally changed. Chest x-ray suggestive but not definitive for a perihilar infiltrate. Levaquin ordered, as is be indicated whether he has community acquired pneumonia or a COPD exacerbation. Discussed in detail with the hospitalist, who accepted to his service. Vital Signs Temperature 98.4 F 08/01/17 10:21 Pulse Rate 135 08/01/17 10:21 Respiratory Rate 22 08/01/17 10:21 Blood Pressure 102/74 08/01/17 10:21 O2 Sat by Pulse Oximetry 97 08/01/17 10:21 Temperature 97.6 F 08/01/17 16:50 Pulse Rate 113 08/01/17 16:50 Respiratory Rate 18 08/01/17 16:50 Blood Pressure 136/78 08/01/17 16:50 O2 Sat by Pulse Oximetry 97 08/01/17 16:50 Oxygen Delivery Oxygen Delivery Nasal Cannula Medical Decision Making - [facility] Narrative Medical decision making narrative: Undergoing treatment for DVT, is on Zaroxolyn. With shortness of breath or replicates his prior COPD episodes, gradual onset over 6 months that is gotten somewhat worse over 4-5 days, and abnormal lung sounds, this seems to be a classic COPD history. This tachycardia could certainly be due to his outpatient Ventolin use. However, PE needs to remain within the differential. My suspicion is very low at this point. However, we will reassess after nebulizer treatments. If he remains short of breath and his breath sounds are improved, or if he develops chest pain, PE may be more of a consideration. At this point, workup for PE is not justified. I have no reason to suspect ischemia. - Lab Data Result diagrams: 08/01/17 13:06 08/01/17 13:06 Lab Results 08/01/17 08/01/17 08/01/17 Range/Units 13:06 13:06 13:06 WBC 14.8 H (4.3-11.1) K/mcL RBC 3.95 L (4.19-5.50) M/mcL Hgb 10.5 L (12.9-16.9) g/dL Hct 35.2 L (37.5-50.1) % MCV 89.1 (83.0-100.0) fL MCH 26.6 L (28.0-33.3) pg MCHC 29.8 L (31.6-35.5) g/dL RDW 16.6 H (11.5-14.5) % Plt Count 515 H (140-400) K/mcL MPV 10.0 (9.4-12.4) fL Immature Gran % 2.0 (0-4) % Seg Neutrophils % 91.1 % Lymphocytes % 2.8 % Monocytes % 3.8 % Eosinophils % 0.0 % Basophils % 0.3 % Neutrophils # 13.5 H (1.6-8.9) K/mcL Lymphocytes # 0.4 L (0.6-4.6) K/mcL Monocytes # 0.6 (0.0-1.3) K/mcL Eosinophils # 0.0 (0.0-0.6) K/mcL Basophils # 0.0 (0.0-0.2) K/mcL PT 17.9 H (9.4-12.1) Seconds INR 1.6 APTT 42.3 H (26.0-36.0) Seconds Sodium 131 L (136-145) mEq/L Potassium 4.8 H (3.5-4.5) mEq/L Chloride 105 (98-109) mEq/L Carbon Dioxide 10 L* (19-29) mEq/L BUN 56 H (8-26) mg/dL Creatinine 2.63 H (0.72-1.25) mg/dL Est GFR ( Amer) 29 L (> 60) Est GFR (Non-Af Amer) 24 L (> 60) BUN/Creatinine Ratio 21 (6-26) Glucose 213 H (70-99) mg/dL Calculated Osmolality 294 (280-300) Calcium 9.7 (8.6-10.8) mg/dL Total Bilirubin 0.2 (0.2-1.2) mg/dL Direct Bilirubin 0.2 (0.0-0.5) mg/dL Indirect Bilirubin 0.0 (0.0-1.2) mg/dL AST 36 H (5-34) Units/L ALT 23 (0-55) Units/L Alkaline Phosphatase 171 H (38-126) Units/L Serum Total Protein 8.6 H (6.0-8.3) g/dL Albumin 1.9 L (3.5-5.0) g/dL Globulin 6.7 H (2.4-3.5) g/dL Albumin/Globulin Ratio 0.3 L (1.1-2.2) - EKG Data EKG #1 EKG attestation: Yes I reviewed and interpreted this EKG. EKG shows normal: sinus rhythm Rate: tachycardia (Rate 114, normal intervals and QRS duration. No acute ischemic changes. Nonspecific scattered T-wave flattening, not in contiguous leads. No evidence of right heart strain.)
[2017-08-01] MEDS: Albuterol 2.5 MG/3 ML NEBULIZER IH STA (11:11)
[2017-08-01] MEDS ORDERED: levoFLOXacin 750 MG TABLET PO ONE (12:01)
[2017-08-01 13:17] LABS: Basophils % 0.3 %; Hematocrit 35.2 % (37.5-50.1); Hemoglobin 10.5 g/dL (12.9-16.9); Lymphocytes # 0.4 K/mcL (0.6-4.6); Lymphocytes % 2.8 %; Mean Corpuscular HGB Conc 29.8 g/dL (31.6-35.5); Mean Corpuscular Hemoglobin 26.6 pg (28.0-33.3); Mean Corpuscular Volume 89.1 fL (83.0-100.0); Monocytes # 0.6 K/mcL (0.0-1.3); Monocytes % 3.8 %; Neutrophils # 13.5 K/mcL (1.6-8.9); Platelet Count 515 K/mcL (140-400); Red Blood Count 3.95 M/mcL (4.19-5.50); Red Cell Distribution Width 16.6 % (11.5-14.5); Segmented Neutrophils % 91.1 %
[2017-08-01 13:26] LABS: Calcium 9.7 mg/dL (8.6-10.8); Potassium 4.8 mEq/L (3.5-4.5)
[2017-08-01] MEDS ORDERED: Naloxone 0.4 MG/ML INJ IVP PRN (15:03)
[2017-08-01] MEDS ORDERED: Famotidine 20 MG TABLET PO PRN (15:05)
[2017-08-01] MEDS ORDERED: Albuterol 2.5 MG/3 ML NEBULIZER IH PRN (15:07)
[2017-08-01] MEDS ORDERED: D5% in Water 1,000 ML IVC PRN (15:08)
[2017-08-01] MEDS ORDERED: *HR* Dextrose 50 % in Water (Syg) 50 ML SYRINGE IVP PRN (15:08)
[2017-08-01] MEDS ORDERED: Dextrose Gel 15 GM PO PRN ×2 (15:08)
--- NOTE | 2017-08-01 15:14 | Internal Med History&Physical ---
Date of Encounter: 08/01/17 Time of Encounter: 13:00 Assessment and Plan (1) CAP (community acquired pneumonia) Current visit: Yes Status: Acute Patient is day 1 IV Levaquin. He has sepsis associated with this pneumonia which is present on admission. Sepsis protocol has been initiated with IV fluid bolus. We will need to monitor cardiovascular status very closely as he has a history of CHF. Presently he appears dehydrated. Blood cultures are pending. Will need close monitoring. Telemetry. Qualifiers: Laterality: right Lung location: middle lobe of lung Qualified Code(s): J18.1 - Lobar pneumonia, unspecified organism (2) Sepsis Current visit: Yes Status: Acute See above Qualifiers: Sepsis type: sepsis due to unspecified organism Qualified Code(s): A41.9 - Sepsis, unspecified organism (3) Atrial fibrillation Current visit: Yes Status: Acute Appears to be sinus tachycardia presently. This is likely paroxysmally to fibrillation. He is on aspirin but not on anticoagulation. This will need to be readdressed. Qualifiers: Atrial fibrillation type: paroxysmal Qualified Code(s): I48.0 - Paroxysmal atrial fibrillation (4) Chronic diastolic CHF (congestive heart failure) Current visit: Yes Status: Acute Continue home medications. Including beta maria esther. Monitor closely for volume overload as he is being resuscitated. Keep blood pressure controlled. (5) COPD (chronic obstructive pulmonary disease) Current visit: Yes Status: Acute I am not convinced he is having an acute exacerbation. We will hold off on further steroids. We will use aggressive bronchodilators and mucolytic's. Monitor. Supplemental oxygen as he wears at home. Aim to maintain sats in the low 90s. Qualifiers: Qualified Code(s): J44.9 - Chronic obstructive pulmonary disease, unspecified (6) DM type 2 (diabetes mellitus, type 2) Current visit: No Status: Chronic Blood sugars elevated. He is placed on basal bolus insulin and we will monitor. Qualifiers: Diabetes mellitus complication status: without complication Diabetes mellitus terminal system operator insulin use: without terminal system operator use Qualified Code(s): E11.9 - Type 2 diabetes mellitus without complications (7) Metabolic acidosis, increased anion gap Current visit: Yes Status: Acute I suspect this is due to sepsis and not DKA. I will check a lactic acid. Of note he is also on metformin which could cause lactic acidosis. We will continue to monitor. Internal Medicine - H&P: HPI Admitted From: Emergency Dept Plans for Post Hospital Care: Home History of present illness: Mr. Mccain is a 71 year old male with a past medical history significant for CHF secondary to diastolic dysfunction with an EF of 60% in March 2017, diabetes mellitus type 2 on oral medication, COPD on 2 L of oxygen home, atrial fibrillation currently not on anticoagulation, prostate cancer currently not receiving treatment, he is tobacco abuse extensive, history of colectomy with colostomy. Patient presents to the emergency room states he is not feeling well. States he has been short of breath for the last 4-6 weeks with occasional wheezing. He also has a cough productive of yellow sputum. He denies any fevers or chills. No chest pain. He states he feels like he has gained weight some lower extremity edema. Recent states that he has not had felt well for at least 4-6 weeks. He has been using his inhalers at home and states he has been compliant with all his medications. Patient presented to the emergency room for evaluation. On arrival he had a temperature 98.4, heart rate of 135 sinus rhythm, respiratory rate of 22 with conversational dyspnea, blood pressure 102/ 74. Satting 97% on 2 L. On exam he appeared dehydrated with dry mucous membranes and skin with diminished turgor. His lungs showed diminished breath sounds at the bases bilaterally without wheezing or rub or rhonchi. Heart was tachycardic with regular rhythm. Abdomen was nontender. Extremities showed trace edema. Labs showed a white count of 14.8, hemoglobin 10.5, segs 91. BUN/ creatinine 56 over 2.63, sodium 131, potassium 4.8, chloride 105, CO2 of 10. Blood sugar of 213. Lactic acid is pending. Chest x-ray showed a right infrahilar infiltrate. She was given Levaquin in the emergency room empirically for community acquired pneumonia. Evaluation of this patient in the emergency room, he met several sepsis criteria , and he was placed on the sepsis protocol with aggressive IV fluids, close monitoring. Patient was admitted. Blood cultures are ordered. Past Med Surg Social Fam HX - Past Medical History Medical history: asthma, atrial fibrillation, cancer (Prostate cancer, has not had problems with this in years.), diabetes, hyperlipidemia, hypertension, other (Nerve damage to his right hand after punching a window years ago) Psychiatric history: no psych history - Past Surgical History Surgical History: carotid endarterectomy, cholecystectomy, colectomy, colostomy (Sounds as though this was done as a diverting colostomy due to his prostate cancer and radiation.), prostatectomy, other - Social History Smoking Status: Former smoker Smokeless Tobacco Status: No Alcohol use: none Drug use: none Occupational status: unemployed Current living situation: Home Activity Level: Independent ambulation Recent Out of Country Travel Within the Last 8 Weeks: No Exposure or Possible Exposure to Illness During Travel: No - Family History Father Adopted: No Living Status: Hx Family Cardiac Disorders: Yes Hx Family Respiratory Disorders: No Hx Family Cancer: No Hx Family GI Disorders: No Hx Family Endocrine Disorder: No Hx Family Neuromuscular Disorders: No Hx Family Neurologic Disorders: No Hx Family HEENT Disorders: No Hx Family Autoimmune Disorders: No - Additional Family History Additional family history: Family history reviewed and noncontributory Internal Medicine - H&P: Meds Atorvastatin [Lipitor] 40 mg PO DAILY 09/22/15 [History] Ferrous Sulfate 325 mg PO BID 09/22/15 [History] Furosemide [Lasix] 40 mg PO DAILY 09/22/15 [History] Glimepiride [Amaryl] 4 mg PO DAILY 09/22/15 [History] Potassium Chloride 40 meq PO DAILY 09/22/15 [History] Folic Acid 1 mg PO DAILY #30 tablet 11/01/15 [Rx] Metoprolol [Lopressor] 25 mg PO DAILY 05/14/16 [History] SitaGLIPtin [Januvia] 100 mg PO DAILY 05/14/16 [History] Albuterol Sulfate [Proair Hfa] 2 puff IH Q4H PRN 06/07/16 [History] Aspirin 81 mg PO DAILY 08/13/16 [History] Diltiazem HCl [Diltiazem 24Hr Cd] 120 mg PO DAILY 03/19/17 [History] Metformin HCl [Glucophage] 1,000 mg PO BID 06/13/17 [History] Docusate Sodium [Colace] 100 mg PO BID #60 06/26/17 [Rx] Ranitidine HCl [Zantac] 150 mg PO BID PRN 07/08/17 [History] Albuterol Sulfate [Albuterol Inhaler] 2 puff IH Q4HR #1 hfa.aer.ad 07/12/17 [Rx] Fluticasone/Salmeterol [Advair Hfa 115-21 Mcg Inhaler] 2 puff IH BID 08/01/17 [ History] 3 Allergy/AdvReac Type Severity Reaction Status Date / Time No Known Allergies Allergy Verified 07/08/17 10:24 All Systems PM: A 10-system review of systems was performed and is negative for pertinent findings except as documented above in the HPI. - Constitutional Vitals: Temp Pulse Resp BP Pulse Ox 98.4 F 135 18 134/86 98 08/01/17 10:21 08/01/17 14:00 08/01/17 14:45 08/01/17 14:45 08/01/17 14:00 General appearance: Present: mild distress (Conversational dyspnea), A&O X 3 - Head Head exam: Present: atraumatic, normocephalic - Eye Eye exam: Present: PERRL, conjuntiva pink, sclera anicteric Pupils: Present: PERRL - ENT ENT exam: Present: mucous membranes dry - Neck Neck exam general surgery: Present: supple, trachea midline. Absent: lymphadenopathy - Respiratory Respiratory exam: Present: decreased breath sounds, CTAB. Absent: accessory muscle use, rales, rhonchi, wheezes - Cardiovascular Cardiovascular exam: Present: RRR, +S1, +S2, tachycardia. Absent: diastolic murmur, gallop, rubs, systolic murmur - GI/Abdominal GI/Abdominal exam: Present: normal bowel sounds, soft (Colostomy intact), no peritoneal signs. Absent: distended, tenderness - Extremities Exam Extremities exam: Present: pedal edema (trace edema), warm, radial pulses palpable and symmetrical. Absent: calf tenderness, cyanotic - Neurological Exam Neurological exam: Present: CN II-XII intact, oriented X3, no focal deficits. Absent: pronater drift, facial droop, speech deficit - Skin Skin exam: Present: dry (Diminished turgor, capillary refill less than 2.5 seconds, hands and feet are warm and well perfused with good pulses.), intact Internal Med - H&P Results - Labs CBC & Chem 7: 08/01/17 13:06 08/01/17 13:06
[2017-08-01] MEDS ORDERED: 0.9 % Sodium Chloride 1,000 ML IVC SCH (15:15)
[2017-08-01 15:38] LABS: INR 1.6; Prothrombin Time 17.9 Seconds (9.4-12.1)
[2017-08-01 15:40] LABS: Activated Partial Thrombo Time 42.3 Seconds (26.0-36.0)
[2017-08-01 15:52] LABS: Albumin/Globulin Ratio 0.3 (1.1-2.2); Bilirubin,Total 0.2 mg/dL (0.2-1.2); Globulin 6.7 g/dL (2.4-3.5); Total Protein 8.6 g/dL (6.0-8.3)
[2017-08-01 15:58] LABS: Albumin 1.9 g/dL (3.5-5.0); Bilirubin,Direct 0.2 mg/dL (0.0-0.5)
[2017-08-01] MEDS: Ipratropium/Albuterol Neb 3 ML IH SCH ×2 (16:16→23:02)
[2017-08-01 17:12] LABS: Calcium 9.3 mg/dL (8.6-10.8); Potassium 4.9 mEq/L (3.5-4.5)
[2017-08-01] MEDS: *HR* Heparin 5,000 UNIT/ML VIAL SQ SCH ×2 (17:43→23:29)
[2017-08-01 18:06] LABS: Hemoglobin A1C 6.5 %
[2017-08-01] MEDS: 0.9 % Sodium Chloride 1,000 ML IVC SCH ×3 (18:06→21:22)
--- NOTE | 2017-08-01 18:41 | Event Note ---
Date of Encounter: 08/01/17 Time of Encounter: 18:40 Sepsis follow up: IVF infusing. Pt reports feeling better, no SOB. BS remains elevated but not suspected to have DKA. His metabolic acidosis is still felt to be due sepsis. Vitals reviewed, still tachycardic. Gen : Appears improved, AAOx3 Lungs CTAB HT tachy w RRR Ext Tr edema Cap refill <2.5 sec. Discussed the case with bedside RN. Will reduce IVF after bolus given. Monitor closely for CHF.
[2017-08-01] MEDS: Insulin LISPRO 300 UNITS/3 ML VIAL SQ SCH (19:01)
[2017-08-01] MEDS: Insulin DETEMIR 100 UNIT/ML X5UNITS SQ SCH (21:21)
[2017-08-01] MEDS: Budesonide/Formoterol 80/4.5 MDI IH SCH (23:02)
[2017-08-02] MEDS: Insulin LISPRO 300 UNITS/3 ML VIAL SQ SCH ×4 (01:12→22:07)
[2017-08-02] MEDS: Ipratropium/Albuterol Neb 3 ML IH SCH ×4 (03:47→22:52)
[2017-08-02 04:15] LABS: Acinetobacter baumannii by PCR Not Detected (Not Detect); Enterococcus by PCR Not Detected (Not Detect); Staphylococcus aureus by PCR Not Detected (Not Detect); Streptococcus agalactiae(B)PCR Not Detected (Not Detect); Streptococcus by PCR Not Detected (Not Detect); Streptococcus pneumoniae PCR Not Detected (Not Detect); Streptococcus pyogenes (A) PCR Not Detected (Not Detect); blaKPC Carbapenem-Resist Gene Not Detected (Not Detect)
[2017-08-02 04:16] LABS: Candida albicans by PCR Not Detected (Not Detect); Candida glabrata by PCR Not Detected (Not Detect); Candida krusei by PCR Not Detected (Not Detect); Candida parapsilosis by PCR Not Detected (Not Detect); Candida tropicalis by PCR Not Detected (Not Detect); Escherichia coli by PCR ***DETECTED*** (Not Detect); Klebsiella oxytoca by PCR Not Detected (Not Detect); Klebsiella pneumoniae by PCR Not Detected (Not Detect); Pseudomonas aeruginosa by PCR Not Detected (Not Detect); Serratia marcescens by PCR Not Detected (Not Detect)
[2017-08-02] MEDS ORDERED: 0.9 % Sodium Chloride 1,000 ML IVC SCH (04:29)
[2017-08-02 06:09] LABS: Basophils % 0.1 %; Hematocrit 27.9 % (37.5-50.1); Immature Granulocytes % 1.8 % (0-4); Lymphocytes # 0.4 K/mcL (0.6-4.6); Lymphocytes % 3.5 %; Mean Corpuscular HGB Conc 29.4 g/dL (31.6-35.5); Mean Corpuscular Hemoglobin 26.2 pg (28.0-33.3); Mean Corpuscular Volume 89.1 fL (83.0-100.0); Mean Platelet Volume 9.5 fL (9.4-12.4); Monocytes # 0.7 K/mcL (0.0-1.3); Monocytes % 6.1 %; Neutrophils # 10.5 K/mcL (1.6-8.9); Platelet Count 414 K/mcL (140-400); Red Blood Count 3.13 M/mcL (4.19-5.50); Red Cell Distribution Width 16.6 % (11.5-14.5); Segmented Neutrophils % 88.5 %
[2017-08-02 06:10] LABS: Hemoglobin 8.2 g/dL (12.9-16.9)
[2017-08-02 06:27] LABS: Calcium 8.2 mg/dL (8.6-10.8); Potassium 4.3 mEq/L (3.5-4.5)
[2017-08-02] MEDS ORDERED: Levofloxacin 750 MG/150 ML 750 MG/150 ML BAG IVPB SCH (09:00)
[2017-08-02] MEDS: Budesonide/Formoterol 80/4.5 MDI IH SCH ×2 (10:40→22:52)
[2017-08-02] MEDS: Aspirin 81 MG TAB.CHEW PO SCH (12:10)
[2017-08-02] MEDS: Folic Acid 1 MG TABLET PO SCH (12:10)
[2017-08-02] MEDS: Diltiazem CD (24hr) 120 MG CAPSULE PO SCH (12:10)
[2017-08-02] MEDS: *HR* Heparin 5,000 UNIT/ML VIAL SQ SCH ×2 (12:21→17:23)
[2017-08-02] MEDS: Ondansetron 4 MG/2 ML VIAL IVP PRN (13:32)
[2017-08-02] MEDS ORDERED: *HR* OxyCODONE/APAP 5/325 TABLET PO PRN (13:39)
[2017-08-02] MEDS: *HR* OxyCODONE/APAP 5/325 TABLET PO PRN (13:57)
[2017-08-02] MEDS: Miconazole w/zinc oxide&karaya 92 APPL/92 GM TUBE TP SCH ×2 (14:00→22:06)
--- NOTE | 2017-08-02 15:43 | Event Note ---
Date of Encounter: 08/02/17 Time of Encounter: 15:41 Called regarding patient's midline incision and concern for possible source of infection. Incision is CDI. Two small openings-largest is approximately 1.5cm in diameter and 1cm depth with granulation tissue present. No drainage. NO erythema. No signs of infection. Will write for daily dressing changes while an inpatient. No other recommendations at this time. Will sign off. Thank you.
--- NOTE | 2017-08-02 17:37 | Internal Med Progress Note ---
Date of Encounter: 08/02/17 Time of Encounter: 10:00 - Assessment and plan (1) Atrial fibrillation Current Visit: No Status: Chronic Assessment and plan: Heart rate is well controlled. On ASA for CVA prevention. Patient declined long-term anti-coagulation per pervious cardiology note (09/29/15) Qualifiers: Atrial fibrillation type: paroxysmal Qualified Code(s): I48.0 - Paroxysmal atrial fibrillation (2) Nonhealing surgical wound Current Visit: No Status: Acute Assessment and plan: Surgical consult appreciated. No signs of infection per surgical evaluation. Continue wound care Qualifiers: Encounter type: subsequent encounter Qualified Code(s): T81.89XD - Other complications of procedures, not elsewhere classified, subsequent encounter (3) Diabetes mellitus Current Visit: No Status: Chronic Assessment and plan: Continue basal and sliding scale insulin coverage Qualifiers: Diabetes mellitus type: type 2 Diabetes mellitus complication status: with unspecified complications Diabetes mellitus retirement insulin use: without long term care social worker use Qualified Code(s): E11.8 - Type 2 diabetes mellitus with unspecified complications (4) Decubitus ulcer of coccygeal region, stage 3 Current Visit: No Status: Acute Assessment and plan: Continue wound care. Nutrition consult and ensure, vitamin C and zinc placed (5) DVT prophylaxis Current Visit: No Status: Acute Assessment and plan: Heparin subcutaneously (6) CAP (community acquired pneumonia) Current Visit: Yes Status: Acute Assessment and plan: Continue Levaquin IV. Continue oxygen and supportive treatment. Qualifiers: Laterality: right Lung location: middle lobe of lung Qualified Code(s): J18.1 - Lobar pneumonia, unspecified organism (7) Sepsis Current Visit: Yes Status: Resolved Assessment and plan: Patient was treated with antibiotic and IV fluid. Patient's tachycardia has improved after treatment. Lactate acid 1.6. Now pt not meeting sepsis criteria. Sepsis has resolved. Qualifiers: Sepsis type: Escherichia coli Qualified Code(s): A41.51 - Sepsis due to Escherichia coli [E. coli] (8) Chronic diastolic CHF (congestive heart failure) Current Visit: Yes Status: Acute Assessment and plan: Appears euvolemic now. Continue home medications. (9) Bacteremia Current Visit: Yes Status: Acute Assessment and plan: Blood culture shows Escherichia coli. Etiology is undetermined. Difficult to explain by pneumonia. Probably contamination. We will repeat blood culture. Continue Levaquin at this point, follow-up final sensitivity. - Time Spent With Patient 25 - 35 minutes - Subjective Interval history: Patient is a 71-year-old male admitted for community acquired pneumonia. Past medical history is significant for A. fib, prostate cancer, diabetes, hypertension, hyperlipidemia. Patient was seen and examined. Feels fine. Mild shortness of breath. No cough no fever. Vital signs stable. Patient was found blood culture positive with Escherichia coli. Will repeat blood culture. Continue current treatment with Levaquin. - Constitutional Vitals: Temp Pulse Resp BP Pulse Ox 98.9 F 94 16 126/74 100 08/02/17 00:10 08/02/17 00:10 08/02/17 16:12 08/02/17 00:10 08/02/17 16:12 General appearance: Present: mild distress (Conversational dyspnea), A&O X 3, answers questions appropriately - Head Head exam: Present: atraumatic, normocephalic - Eye Eye exam: Present: PERRL, conjuntiva pink, sclera anicteric Pupils: Present: PERRL - Neck Neck exam general surgery: Present: supple, trachea midline. Absent: lymphadenopathy - Respiratory Respiratory exam: Present: CTAB. Absent: accessory muscle use, rales, rhonchi, wheezes - Cardiovascular Cardiovascular exam: Present: RRR, +S1, +S2. Absent: diastolic murmur, gallop, rubs, systolic murmur - GI/Abdominal GI/Abdominal exam: Present: normal bowel sounds, soft, no peritoneal signs. Absent: distended, tenderness Additional comments: Colostomy bag in place. Two wounds identified on abd wall, well dressed. - Extremities Exam Extremities exam: Present: warm, radial pulses palpable and symmetrical. Absent : calf tenderness, cyanotic, pedal edema - Neurological Exam Neurological exam: Present: CN II-XII intact, oriented X3, no focal deficits. Absent: pronater drift, facial droop, speech deficit - Skin Skin exam: Present: dry, intact Additional comments: Wound on abd wall, decubitus ulcer. Internal Medicine: Result - Labs CBC & Chem 7: 08/02/17 05:39 08/02/17 05:39 Labs: Short CBC 08/02/17 Range/Units 05:39 WBC 11.8 H (4.3-11.1) K/mcL Hgb 8.2 L D (12.9-16.9) g/dL Hct 27.9 L (37.5-50.1) % Plt Count 414 H (140-400) K/mcL Neutrophils # 10.5 H (1.6-8.9) K/mcL BMP 08/02/17 05:39 Sodium 135 L D Potassium 4.3 Chloride 113 H Carbon Dioxide 12 L BUN 46 H D Creatinine 1.76 H Glucose 154 H Calcium 8.2 L - ABG Interpretation ABG results: PT/INR, D-dimer PT 17.9 Seconds (9.4-12.1) H 08/01/17 13:06 Consult Discharge Plan - Plan Referrals: Guillermo Garibay MD [Primary Care Provider] -
[2017-08-02] MEDS: Insulin DETEMIR 100 UNIT/ML X5UNITS SQ SCH (22:07)
[2017-08-03] MEDS: *HR* Heparin 5,000 UNIT/ML VIAL SQ SCH ×2 (01:06→09:00)
[2017-08-03] MEDS: Ondansetron 4 MG/2 ML VIAL IVP PRN (02:44)
[2017-08-03] MEDS: Ipratropium/Albuterol Neb 3 ML IH SCH ×4 (04:13→22:21)
[2017-08-03 05:44] LABS: Basophils % 0.1 %; Eosinophils % 0.3 %; Hematocrit 29.5 % (37.5-50.1); Hemoglobin 8.7 g/dL (12.9-16.9); Immature Granulocytes % 1.2 % (0-4); Lymphocytes # 0.6 K/mcL (0.6-4.6); Lymphocytes % 6.5 %; Mean Corpuscular HGB Conc 29.5 g/dL (31.6-35.5); Mean Corpuscular Hemoglobin 26.5 pg (28.0-33.3); Mean Corpuscular Volume 89.9 fL (83.0-100.0); Mean Platelet Volume 9.4 fL (9.4-12.4); Monocytes # 0.6 K/mcL (0.0-1.3); Monocytes % 6.7 %; Neutrophils # 8.1 K/mcL (1.6-8.9); Platelet Count 399 K/mcL (140-400); Red Blood Count 3.28 M/mcL (4.19-5.50); Red Cell Distribution Width 16.8 % (11.5-14.5); Segmented Neutrophils % 85.2 %
[2017-08-03 06:06] LABS: Calcium 8.4 mg/dL (8.6-10.8)
[2017-08-03] MEDS ORDERED: *HR* Digoxin 0.5 MG/2 ML AMPUL IVP ONE ×2 (06:16→10:12)
[2017-08-03] MEDS: Insulin LISPRO 300 UNITS/3 ML VIAL SQ SCH ×4 (08:59→21:01)
[2017-08-03] MEDS: 0.9 % Sodium Chloride 1,000 ML IVC SCH ×2 (08:59→19:15)
[2017-08-03] MEDS: Aspirin 81 MG TAB.CHEW PO SCH (09:00)
[2017-08-03] MEDS: Miconazole w/zinc oxide&karaya 92 APPL/92 GM TUBE TP SCH ×2 (09:00→21:03)
[2017-08-03 09:01] LABS: Magnesium 1.4 mg/dL (1.6-2.6)
[2017-08-03] MEDS: Ascorbic Acid 500 MG TABLET PO SCH (09:01)
[2017-08-03] MEDS: Zinc Sulfate 220 MG CAPSULE PO SCH (09:01)
[2017-08-03] MEDS: Folic Acid 1 MG TABLET PO SCH (09:01)
[2017-08-03] MEDS ORDERED: Magnesium Sulfate 2 GM in D5% in Water 100 ML IVPB ONE (09:40)
[2017-08-03 09:48] LABS: Thyroid Stimulating Hormone 1.032 mcIU/mL (0.350-4.840)
[2017-08-03] MEDS: Budesonide/Formoterol 80/4.5 MDI IH SCH ×2 (10:15→22:21)
[2017-08-03] MEDS: Furosemide 40 MG TABLET PO SCH (11:50)
--- NOTE | 2017-08-03 12:00 | Cardiology Consult Note ---
Date of Encounter: 08/03/17 Time of Encounter: 11:45 Assessment and Plan (1) Atrial fibrillation Current Visit: Yes Status: Acute Hx of PAF. Episode of Afib with RVR this AM, now in SR. RVR likely exacerbated by PNA. Continue lopressor and cardizem, wean off cardizem gtt 1-2 hours after oral dose. Magnesium replaced with IV rider this AM. CHA2Ds Vasc=3, recommend full anticoagulation. Given renal dysfunction, recommend coumadin, goal INR 2-3. Of note, patient has hx of recent DVT diagnosis. Patient is agreeable to proceed with anticoagulation. Discussed with Dr. Guillermo Clements, will start Coumadin with pharmacy to dose tonight; monitor H/H closely. Qualifiers: Atrial fibrillation type: paroxysmal Qualified Code(s): I48.0 - Paroxysmal atrial fibrillation (2) CAP (community acquired pneumonia) Current Visit: Yes Status: Acute On IV atb. Mgmt per primary service. Qualifiers: Laterality: right Lung location: middle lobe of lung Qualified Code(s): J18.1 - Lobar pneumonia, unspecified organism Discussion w patient/family: The assessment and plan as outlined above was discussed with the patient and/or family members who expressed understanding and agreement. All questions were answered. Thank you for involving us in the care of your patient. Please call with any questions. History of Present Illness Consult date: 08/03/17 Requesting physician: Tg Coleman Consult reason: AF with RVR Chief complaint: Shortness of breath History of present illness: Mr. Mccain is a 71 year old male with PMHx significant for PAF, HTN, HLD, DMII, DVT, and colon CA who presented to the ED with shortness of breath; he was found to have PNA. Cardiology consulted today for atrial fibrillation with RVR, now back in SR upon exam. Per review, patient was prescribed Xarelto 20 mg daily 07/10/[address] Garcia, however is apparently not taking. Prior CV testing: TTE 04/01/17: LVEF 60% TTE 08/15/16: LVEF 60%, no significant valvular dysfunction, mild LVDD, mildly dilated LA, normal wall motion LHC 05/21/15: normal coronary arteries. Past Med Surg Social Fam HX - Past Medical History Attestation: Yes The following information was validated with the patient. Source: patient, old records reviewed Medical history: asthma, atrial fibrillation, cancer (Prostate cancer, has not had problems with this in years.), DVT, diabetes, hyperlipidemia, hypertension, other (Nerve damage to his right hand after punching a window years ago) Psychiatric history: no psych history - Past Surgical History Surgical History: carotid endarterectomy, cholecystectomy, colectomy, colostomy (Sounds as though this was done as a diverting colostomy due to his prostate cancer and radiation.), prostatectomy, other - Social History Smoking Status: Former smoker Smokeless Tobacco Status: No Alcohol use: none Drug use: none - Family History Father Adopted: No Living Status: Hx Family Cardiac Disorders: Yes Hx Family Respiratory Disorders: No Hx Family Cancer: No Hx Family GI Disorders: No Hx Family Endocrine Disorder: No Hx Family Neuromuscular Disorders: No Hx Family Neurologic Disorders: No Hx Family HEENT Disorders: No Hx Family Autoimmune Disorders: No Medications and Allergies Atorvastatin [Lipitor] 40 mg PO DAILY 09/22/15 [History] Ferrous Sulfate 325 mg PO BID 09/22/15 [History] Furosemide [Lasix] 40 mg PO DAILY 09/22/15 [History] Glimepiride [Amaryl] 4 mg PO DAILY 09/22/15 [History] Potassium Chloride 40 meq PO DAILY 09/22/15 [History] Folic Acid 1 mg PO DAILY #30 tablet 11/01/15 [Rx] Metoprolol [Lopressor] 25 mg PO DAILY 05/14/16 [History] SitaGLIPtin [Januvia] 100 mg PO DAILY 05/14/16 [History] Albuterol Sulfate [Proair Hfa] 2 puff IH Q4H PRN 06/07/16 [History] Aspirin 81 mg PO DAILY 08/13/16 [History] Diltiazem HCl [Diltiazem 24Hr Cd] 120 mg PO DAILY 03/19/17 [History] Metformin HCl [Glucophage] 1,000 mg PO BID 06/13/17 [History] Docusate Sodium [Colace] 100 mg PO BID #60 06/26/17 [Rx] Ranitidine HCl [Zantac] 150 mg PO BID PRN 07/08/17 [History] Albuterol Sulfate [Albuterol Inhaler] 2 puff IH Q4HR #1 hfa.aer.[email or web address] 07/12/17 [Rx] Fluticasone/Salmeterol [Advair Hfa 115-21 Mcg Inhaler] 2 puff IH BID 08/01/17 [ History] 3 Allergy/AdvReac Type Severity Reaction Status Date / Time No Known Allergies Allergy Verified 07/08/17 10:24 All Systems Review: A 10-system review of systems was performed and is negative for pertinent findings except as documented above in the HPI. - Cardiovascular Cardiovascular: as per HPI Physical Examination Vital Signs, Last 4 Hours Temp Pulse Resp BP Pulse Ox 08/03/17 11:41 87 16 102/82 99 08/03/17 10:17 150 08/03/17 10:15 18 97 08/03/17 09:10 104/92 08/03/17 08:23 97.6 F 143 16 91/63 98 General: Conversant HEENT: Atraumatic, Normocephaly Cardiac: Reg Rate and Rhythm, Normal S1 and S2 Lungs: Other (coarse) Neuro: Alert and responsive Abdomen: Soft Skin: No rashes noted on visualized skin Musculoskeletal: No Chest Wall Tenderness Extremities: Other (mild, pre-tibial LE edema) Results 08/03/17 05:23 08/03/17 05:23 Lab Results 08/03/17 08/03/17 05:23 05:23 WBC 9.5 Hgb 8.7 L Hct 29.5 L Plt Count 399 Sodium 137 Potassium 4.0 Chloride 115 H Carbon Dioxide 14 L BUN 35 H D Creatinine 1.57 H Glucose 118 H Calcium 8.4 L Magnesium 1.4 L TSH 1.032 Active Medications Albuterol Sulfate (Proventil Neb) 2.5 mg IH Q2H PRN; Protocol PRN Reason: Shortness Of Breath/Wheezing Stop: 01/31/18 15:08 Albuterol/Ipratropium (Duoneb) 3 ml IH [id number] [facility] Stop: 01/31/18 16:01 Last Admin: 08/03/17 10:17 Dose: Not Given Ascorbic Acid (Vitamin C) 500 mg PO DAILY [facility] Stop: 02/02/18 09:01 Last Admin: 08/03/17 09:01 Dose: 500 mg Aspirin (Aspirin) 81 mg PO DAILY [facility] Stop: 02/01/18 09:01 Last Admin: 08/03/17 09:00 Dose: 81 mg Atorvastatin Calcium (Lipitor) 40 mg PO DAILY [facility] Stop: 02/01/18 09:01 Last Admin: 08/03/17 09:01 Dose: 40 mg Budesonide/Formoterol Fumarate (Symbicort) 2 puff IH BIDRESP [facility] Stop: 01/31/18 22:01 Last Admin: 08/03/17 10:15 Dose: 2 puff Dextrose/Water (Dextrose 50% (Syg)) 25 ml IVP AD PRN PRN Reason: Hypoglycemia Stop: 01/31/18 15:09 Diltiazem HCl (Cardizem Cd) 120 mg PO DAILY [facility] Stop: 02/01/18 09:01 Last Admin: 08/03/17 12:10 Dose: 120 mg Docusate Sodium (Colace) 100 mg PO BID [facility] PRN Reason: Protocol Stop: 01/31/18 21:01 Last Admin: 08/03/17 09:01 Dose: Not Given Famotidine (Pepcid) 20 mg PO BID PRN PRN Reason: Heartburn Ferrous Sulfate (Ferrous Sulfate) 325 mg PO BID [facility] Stop: 01/31/18 21:01 Last Admin: 08/03/17 09:01 Dose: 325 mg Folic Acid (Folic Acid) 1 mg PO DAILY [facility] Stop: 02/01/18 09:01 Last Admin: 08/03/17 09:01 Dose: 1 mg Furosemide (Lasix) 40 mg PO DAILY [facility] Stop: 02/02/18 09:01 Last Admin: 08/03/17 11:50 Dose: Not Given Glucagon (Glucagen) 1 mg IM ONCE PRN PRN Reason: Hypoglycemia Stop: 01/31/18 15:09 Glucose (Gluctose) 15 gm PO ONCE PRN PRN Reason: Hypoglycemia Stop: 01/31/18 15:09 Glucose (Gluctose) 30 gm PO ONCE PRN PRN Reason: Hypoglycemia Stop: 01/31/18 15:09 Guaifenesin (Mucinex) 600 mg PO BID [facility] Stop: 01/31/18 21:01 Last Admin: 08/03/17 09:01 Dose: 600 mg Heparin Sodium (Porcine) (Heparin) 5,000 unit SQ Q8HR [facility] Stop: 01/31/18 16:01 Last Admin: 08/03/17 09:00 Dose: 5,000 unit Dextrose (Dextrose 5%) 1,000 mls @ 100 mls/hr IVC .Q10H PRN PRN Reason: HYPOGLYCEMIA Stop: 01/31/18 15:09 Diltiazem HCl 125 mg/ Dextrose 125 mls @ 5 mls/hr IVC .Q24H [facility]; 5 MG/HR PRN Reason: Protocol Stop: 02/02/18 06:31 Last Admin: 08/03/17 06:50 Dose: 5 mg/hr, 5 mls/hr Sodium Chloride (0.9 % Sodium Chloride) 1,000 mls @ 100 mls/hr IVC .Q10H [facility] Stop: 02/02/18 08:01 Last Admin: 08/03/17 08:59 Dose: 100 mls/hr Azithromycin 500 mg/ Dextrose 250 mls @ 252 mls/hr IVPB Q24H [facility] Stop: 02/02/18 12:01 Ceftriaxone Sodium 1,000 mg/ (Dextrose) 100 mls @ 200 mls/hr IVPB Q24H [facility] Stop: 02/02/18 12:01 Last Admin: 08/03/17 12:00 Dose: 200 mls/hr Insulin Detemir (Levemir) 15 unit SQ HS [facility] Stop: 01/31/18 21:01 Last Admin: 08/02/17 22:07 Dose: 15 unit Insulin Human Lispro (Humalog) 0 units SQ HS [facility] PRN Reason: Protocol Stop: 02/01/18 21:01 Last Admin: 08/02/17 22:07 Dose: Not Given Insulin Human Lispro (Humalog) 0 units SQ TIDAC [facility] PRN Reason: Protocol Stop: 02/01/18 16:31 Last Admin: 08/03/17 12:13 Dose: 10 units Metoprolol Tartrate (Lopressor) 25 mg PO DAILY [facility] Stop: 02/01/18 09:01 Last Admin: 08/02/17 12:10 Dose: 25 mg Miconazole Nitrate (Antifungal Extra Thick) 1 appl TP BID [facility] Stop: 02/01/18 13:01 Last Admin: 08/03/17 09:00 Dose: 1 appl Naloxone HCl (Narcan) 0.4 mg IVP Q2MIN PRN PRN Reason: Opioid Reversal Stop: 01/31/18 15:04 Ondansetron HCl (Zofran) 4 mg IVP Q6HR PRN; Protocol PRN Reason: Nausea Stop: 02/01/18 12:52 Last Admin: 08/03/17 02:44 Dose: 4 mg Oxycodone/Acetaminophen (Percocet 5/325) 1 each PO Q6H PRN PRN Reason: Pain Stop: 02/01/18 13:40 Last Admin: 08/02/17 13:57 Dose: 1 each Potassium Chloride (Potassium Chloride) 40 meq PO DAILY [facility] Stop: 02/02/18 09:01 Zinc Sulfate (Zinc Sulfate) 220 mg PO DAILY [facility] Stop: 02/02/18 09:01 Last Admin: 08/03/17 09:01 Dose: 220 mg - Imaging and Cardiology Echo: report reviewed Cardiac cath: report reviewed - EKG Interpretation EKG results cardiology: personally reviewed Consult Discharge Plan - Plan Referrals: [place],Guillermo Preciado MD [Primary Care Provider] -
[2017-08-03] MEDS: Diltiazem CD (24hr) 120 MG CAPSULE PO SCH (12:10)
[2017-08-03] MEDS: Azithromycin 500 MG in D5% in Water 250 ML IVPB SCH (13:44)
[2017-08-03] MEDS: *HR* OxyCODONE/APAP 5/325 TABLET PO PRN (13:54)
--- NOTE | 2017-08-03 17:13 | Internal Med Progress Note ---
Date of Encounter: 08/03/17 Time of Encounter: 10:00 - Assessment and plan (1) Atrial fibrillation Current Visit: No Status: Chronic Assessment and plan: Overnight A Fib RVR, treated with cardizem drip. Heart rate is well controlled now with NSR. Cardiology consult appreciated. Patient agrees to start anticoagulation with Coumadin. Follow-up with PT/INR Qualifiers: Atrial fibrillation type: paroxysmal Qualified Code(s): I48.0 - Paroxysmal atrial fibrillation (2) Nonhealing surgical wound Current Visit: No Status: Acute Assessment and plan: Surgical consult appreciated. No signs of infection per surgical evaluation. Continue wound care Qualifiers: Encounter type: subsequent encounter Qualified Code(s): T81.89XD - Other complications of procedures, not elsewhere classified, subsequent encounter (3) Diabetes mellitus Current Visit: No Status: Chronic Assessment and plan: Continue basal and sliding scale insulin coverage Qualifiers: Diabetes mellitus type: type 2 Diabetes mellitus complication status: with unspecified complications Diabetes mellitus intermediate school teacher insulin use: without [place] [facility] use Qualified Code(s): E11.8 - Type 2 diabetes mellitus with unspecified complications (4) Decubitus ulcer of coccygeal region, stage 3 Current Visit: No Status: Acute Assessment and plan: Continue wound care. Nutrition consult and ensure, vitamin C and zinc placed (5) DVT prophylaxis Current Visit: No Status: Acute Assessment and plan: Started coumadin for A Fib now. (6) CAP (community acquired pneumonia) Current Visit: Yes Status: Acute Assessment and plan: Continue IV Abx. Switch to Azithromycin and rocephin . Continue oxygen and supportive treatment. Qualifiers: Laterality: right Lung location: middle lobe of lung Qualified Code(s): J18.1 - Lobar pneumonia, unspecified organism (7) Chronic diastolic CHF (congestive heart failure) Current Visit: Yes Status: Acute Assessment and plan: Appears euvolemic now. Continue home medications. (8) Bacteremia Current Visit: Yes Status: Acute Assessment and plan: Blood culture shows Escherichia coli. Etiology is undetermined. Difficult to explain by pneumonia. Probably contamination. We will repeat blood culture. Continue abx at this point, follow-up final sensitivity. (9) EUEGNIO (acute kidney injury) Current Visit: Yes Status: Acute Assessment and plan: Continue mild IV fluid and follow-up renal function. Patient also has mild metabolic acidosis, will add bicarbonate by mouth - Time Spent With Patient 25 - 35 minutes - Subjective Interval history: Patient is a 71-year-old male admitted for community acquired pneumonia. Past medical history is significant for A. fib, prostate cancer, diabetes, hypertension, hyperlipidemia. Patient was seen and examined. Still mild shortness of breath. No cough no fever. Overnight event: Pt developped A Fib RVR, which convert to NSR after cardizem drip and one dose of iv digoxin. Cardio consult appreciated, will start anticoagulation as pt agrees now. Vital signs stable. Switch abx to azithromycin and rocephin as pt has impaired renal function. - Constitutional Vitals: Temp Pulse Resp BP Pulse Ox 97.6 F 78 16 100/65 98 08/03/17 08:23 08/03/17 16:00 08/03/17 16:00 08/03/17 16:00 08/03/17 16:00 General appearance: Present: mild distress (Conversational dyspnea), A&O X 3, answers questions appropriately - Head Head exam: Present: atraumatic, normocephalic - Eye Eye exam: Present: PERRL, conjuntiva pink, sclera anicteric Pupils: Present: PERRL - Neck Neck exam general surgery: Present: supple, trachea midline. Absent: lymphadenopathy - Respiratory Respiratory exam: Present: CTAB, rales (Fine crackles b/l at lung bases). Absent: accessory muscle use, rhonchi, wheezes - Cardiovascular Cardiovascular exam: Present: RRR, +S1, +S2. Absent: diastolic murmur, gallop, rubs, systolic murmur - GI/Abdominal GI/Abdominal exam: Present: normal bowel sounds, soft, no peritoneal signs. Absent: distended, tenderness - Extremities Exam Extremities exam: Present: warm, radial pulses palpable and symmetrical. Absent : calf tenderness, cyanotic, pedal edema - Neurological Exam Neurological exam: Present: CN II-XII intact, oriented X3, no focal deficits. Absent: pronater drift, facial droop, speech deficit - Skin Skin exam: Present: dry, intact Internal Medicine: Result - Labs CBC & Chem 7: 08/03/17 05:23 08/03/17 05:23 Labs: Short CBC 08/03/17 Range/Units 05:23 WBC 9.5 (4.3-11.1) K/mcL Hgb 8.7 L (12.9-16.9) g/dL Hct 29.5 L (37.5-50.1) % Plt Count 399 (140-400) K/mcL Neutrophils # 8.1 (1.6-8.9) K/mcL BMP 08/03/17 05:23 Sodium 137 Potassium 4.0 Chloride 115 H Carbon Dioxide 14 L BUN 35 H D Creatinine 1.57 H Glucose 118 H Calcium 8.4 L - ABG Interpretation ABG results: PT/INR, D-dimer PT 17.9 Seconds (9.4-12.1) H 08/01/17 13:06 Consult Discharge Plan - Plan Referrals: [place],Guillermo Preciado MD [Primary Care Provider] -
[2017-08-03] MEDS ORDERED: Warfarin perPT PO PRN (18:00)
[2017-08-03 18:20] LABS: INR 1.5; Prothrombin Time 16.6 Seconds (9.4-12.1)
[2017-08-03] MEDS: *HR* Warfarin 3 MG TABLET PO SCH (19:12)
[2017-08-03] MEDS: Insulin DETEMIR 100 UNIT/ML X5UNITS SQ SCH (21:01)
[2017-08-04] MEDS: Ipratropium/Albuterol Neb 3 ML IH SCH ×4 (04:05→22:52)
[2017-08-04 05:19] LABS: Basophils % 0.1 %; Eosinophils % 0.4 %; Hematocrit 29.1 % (37.5-50.1); Hemoglobin 8.7 g/dL (12.9-16.9); Immature Granulocytes % 1.4 % (0-4); Lymphocytes # 0.5 K/mcL (0.6-4.6); Lymphocytes % 4.7 %; Mean Corpuscular HGB Conc 29.9 g/dL (31.6-35.5); Mean Corpuscular Hemoglobin 27.2 pg (28.0-33.3); Mean Corpuscular Volume 90.9 fL (83.0-100.0); Mean Platelet Volume 9.5 fL (9.4-12.4); Monocytes # 0.6 K/mcL (0.0-1.3); Monocytes % 6.7 %; Neutrophils # 8.3 K/mcL (1.6-8.9); Platelet Count 407 K/mcL (140-400); Segmented Neutrophils % 86.7 %
[2017-08-04 05:21] LABS: INR 1.5; Prothrombin Time 16.6 Seconds (9.4-12.1)
[2017-08-04 05:35] LABS: Calcium 8.5 mg/dL (8.6-10.8); Magnesium 1.5 mg/dL (1.6-2.6); Potassium 4.1 mEq/L (3.5-4.5)
[2017-08-04] MEDS ORDERED: Magnesium Sulfate 2 GM in D5% in Water 100 ML IVPB ONE (07:43)
[2017-08-04] MEDS: Aspirin 81 MG TAB.CHEW PO SCH (08:36)
[2017-08-04] MEDS: Diltiazem CD (24hr) 120 MG CAPSULE PO SCH (08:36)
[2017-08-04] MEDS: Folic Acid 1 MG TABLET PO SCH (08:36)
[2017-08-04] MEDS: Ascorbic Acid 500 MG TABLET PO SCH (08:37)
[2017-08-04] MEDS: Zinc Sulfate 220 MG CAPSULE PO SCH (08:37)
[2017-08-04] MEDS: Ringers Solution, Lactated 1,000 ML IVC SCH (08:40)
[2017-08-04] MEDS: Insulin LISPRO 300 UNITS/3 ML VIAL SQ SCH ×4 (08:42→21:12)
[2017-08-04] MEDS: Miconazole w/zinc oxide&karaya 92 APPL/92 GM TUBE TP SCH ×2 (08:43→21:20)
[2017-08-04] MEDS ORDERED: Levofloxacin 750 MG/150 ML 750 MG/150 ML BAG IVPB SCH (09:00)
--- NOTE | 2017-08-04 09:09 | Cardiology Progress Note ---
Date of Encounter: 08/04/17 Time of Encounter: 08:00 Assessment and Plan (1) Atrial fibrillation Current Visit: Yes Status: Acute Hx of PAF. Episode of Afib with RVR this AM, now in SR. RVR likely exacerbated by PNA. Also presented with non-healing surgical wound (midline abdominal) and has stage 3 pressure ulcer to coccyx. 12 hour tele: avg HR=86 SR, brief (10 beat) episode of PAF noted overnight. Continue cardizem 120 mg daily; will change lopressor to BID dosing--25 mg BID. Will replace mag again today with IV rider, Mag 1.5. CHA2Ds Vasc=3, recommend full anticoagulation. Given renal dysfunction, recommend coumadin, goal INR 2-3. Of note, patient has hx of recent DVT diagnosis. Patient is agreeable to proceed with anticoagulation. Discussed with Dr. Guillermo Clements, will start Coumadin with pharmacy to dose tonight; monitor H/H closely. Recommend primary service to coordinate INR's/coumadin monitoring with PCP (Dr. Garibay) as patient has established home health care, will place social work consult. No further recommendations from Cardiology, will sign-off and coordinate appt in the outpatient setting. Qualifiers: Atrial fibrillation type: paroxysmal Qualified Code(s): I48.0 - Paroxysmal atrial fibrillation (2) CAP (community acquired pneumonia) Current Visit: Yes Status: Acute On IV atb. Mgmt per primary service. Qualifiers: Laterality: right Lung location: middle lobe of lung Qualified Code(s): J18.1 - Lobar pneumonia, unspecified organism Discussion w patient/family: The assessment and plan as outlined above was discussed with the patient and/or family members who expressed understanding and agreement. All questions were answered. Thank you for involving us in the care of your patient. Please call with any questions. The patient will be discussed and reviewed with Dr. Guillermo Clements; changes to be made accordingly. Subjective Principal diagnosis: PNA, AFib Interval history: Seen and examined. Reports is feeling better today. Denies palpitations. Shortness of breath has improved, denies chest pain. Objective Vital Signs, Last 4 Hours Temp Pulse Resp BP Pulse Ox 08/04/17 08:35 97.9 F 91 16 132/73 99 General: Conversant, No Apparent Distress HEENT: Atraumatic, Normocephaly, Mucus Membranes Moist Cardiac: Reg Rate and Rhythm, Normal S1 and S2 Lungs: Other (Diminished bibasilar) Neuro: Alert and responsive Abdomen: Soft Skin: No rashes noted on visualized skin Musculoskeletal: No Chest Wall Tenderness Extremities: Normal Pulses, Other (+1 bilateral pre-tibial edema) Results 08/04/17 04:51 08/04/17 04:51 Lab Results 08/03/17 08/03/17 08/04/17 05:23 17:58 04:51 WBC Hgb Hct Plt Count INR 1.5 1.5 Sodium Potassium Chloride Carbon Dioxide BUN Creatinine Glucose Calcium Magnesium 1.4 L TSH 1.032 08/04/17 08/04/17 04:51 04:51 WBC 9.6 Hgb 8.7 L Hct 29.1 L Plt Count 407 H INR Sodium 140 Potassium 4.1 Chloride 117 H Carbon Dioxide 15 L BUN 28 H Creatinine 1.44 H Glucose 168 H Calcium 8.5 L Magnesium 1.5 L TSH Active Medications Albuterol Sulfate (Proventil Neb) 2.5 mg IH Q2H PRN; Protocol PRN Reason: Shortness Of Breath/Wheezing Stop: 01/31/18 15:08 Albuterol/Ipratropium (Duoneb) 3 ml IH [id number] [facility] Stop: 01/31/18 16:01 Last Admin: 08/04/17 04:05 Dose: 3 ml Ascorbic Acid (Vitamin C) 500 mg PO DAILY [facility] Stop: 02/02/18 09:01 Last Admin: 08/04/17 08:37 Dose: 500 mg Aspirin (Aspirin) 81 mg PO DAILY [facility] Stop: 02/01/18 09:01 Last Admin: 08/04/17 08:36 Dose: 81 mg Atorvastatin Calcium (Lipitor) 40 mg PO DAILY [facility] Stop: 02/01/18 09:01 Last Admin: 08/04/17 08:36 Dose: 40 mg Budesonide/Formoterol Fumarate (Symbicort) 2 puff IH BIDRESP [facility] Stop: 01/31/18 22:01 Last Admin: 08/03/17 22:21 Dose: 2 puff Diltiazem HCl (Cardizem Cd) 120 mg PO DAILY [facility] Stop: 02/01/18 09:01 Last Admin: 08/04/17 08:36 Dose: 120 mg Docusate Sodium (Colace) 100 mg PO BID [facility] PRN Reason: Protocol Stop: 01/31/18 21:01 Last Admin: 08/04/17 08:36 Dose: 100 mg Famotidine (Pepcid) 20 mg PO BID PRN PRN Reason: Heartburn Ferrous Sulfate (Ferrous Sulfate) 325 mg PO BID [facility] Stop: 01/31/18 21:01 Last Admin: 08/04/17 08:36 Dose: 325 mg Folic Acid (Folic Acid) 1 mg PO DAILY [facility] Stop: 02/01/18 09:01 Last Admin: 08/04/17 08:36 Dose: 1 mg Furosemide (Lasix) 40 mg PO DAILY [facility] Stop: 02/02/18 09:01 Last Admin: 08/03/17 11:50 Dose: Not Given Glucagon (Glucagen) 1 mg IM ONCE PRN PRN Reason: Hypoglycemia Stop: 01/31/18 15:09 Glucose (Gluctose) 15 gm PO ONCE PRN PRN Reason: Hypoglycemia Stop: 01/31/18 15:09 Glucose (Gluctose) 30 gm PO ONCE PRN PRN Reason: Hypoglycemia Stop: 01/31/18 15:09 Guaifenesin (Mucinex) 600 mg PO BID [facility] Stop: 01/31/18 21:01 Last Admin: 08/04/17 08:36 Dose: 600 mg Dextrose (Dextrose 5%) 1,000 mls @ 100 mls/hr IVC .Q10H PRN PRN Reason: HYPOGLYCEMIA Stop: 01/31/18 15:09 Diltiazem HCl 125 mg/ Dextrose 125 mls @ 5 mls/hr IVC .Q24H [facility]; 5 MG/HR PRN Reason: Protocol Stop: 02/02/18 06:31 Last Titration: 08/03/17 14:30 Dose: 0 mg/hr, 0 mls/hr Azithromycin 500 mg/ Dextrose 250 mls @ 252 mls/hr IVPB Q24H [facility] Stop: 02/02/18 12:01 Last Admin: 08/03/17 13:44 Dose: 252 mls/hr Ceftriaxone Sodium 1,000 mg/ (Dextrose) 100 mls @ 200 mls/hr IVPB Q24H [facility] Stop: 02/02/18 12:01 Last Infusion: 08/03/17 12:45 Dose: Infused Lactated Ringer's (Lactated Ringers) 1,000 mls @ 75 mls/hr IVC .[id number] [facility] Stop: 02/03/18 07:46 Last Admin: 08/04/17 08:40 Dose: 75 mls/hr Insulin Detemir (Levemir) 15 unit SQ HS [facility] Stop: 01/31/18 21:01 Last Admin: 08/03/17 21:01 Dose: 15 unit Insulin Human Lispro (Humalog) 0 units SQ HS [facility] PRN Reason: Protocol Stop: 02/01/18 21:01 Last Admin: 08/03/17 21:01 Dose: Not Given Insulin Human Lispro (Humalog) 0 units SQ TIDAC [facility] PRN Reason: Protocol Stop: 02/01/18 16:31 Last Admin: 08/04/17 08:42 Dose: Not Given Metoprolol Tartrate (Lopressor) 25 mg PO DAILY [facility] Stop: 02/01/18 09:01 Last Admin: 08/04/17 08:36 Dose: 25 mg Miconazole Nitrate (Antifungal Extra Thick) 1 appl TP BID [facility] Stop: 02/01/18 13:01 Last Admin: 08/04/17 08:43 Dose: 1 appl Naloxone HCl (Narcan) 0.4 mg IVP Q2MIN PRN PRN Reason: Opioid Reversal Stop: 01/31/18 15:04 Ondansetron HCl (Zofran) 4 mg IVP Q6HR PRN; Protocol PRN Reason: Nausea Stop: 02/01/18 12:52 Last Admin: 08/03/17 02:44 Dose: 4 mg Oxycodone/Acetaminophen (Percocet 5/325) 1 each PO Q6H PRN PRN Reason: Pain Stop: 02/01/18 13:40 Last Admin: 08/03/17 13:54 Dose: 1 each Potassium Chloride (Potassium Chloride) 40 meq PO DAILY [facility] Stop: 02/02/18 09:01 Last Admin: 08/03/17 12:29 Dose: 20 meq Sodium Bicarbonate (Sodium Bicarbonate) 650 mg PO TID [facility] Stop: 02/02/18 21:01 Last Admin: 08/04/17 08:36 Dose: 650 mg Warfarin Sodium (Coumadin Perpt) 1 each PO DAILY@1800 PRN PRN Reason: SEE COMMENTS Stop: 02/02/18 18:01 Warfarin Sodium (Coumadin) 3 mg PO 1800 [facility] Stop: 03/18/18 18:01 Last Admin: 08/03/17 19:12 Dose: 3 mg Zinc Sulfate (Zinc Sulfate) 220 mg PO DAILY [facility] Stop: 02/02/18 09:01 Last Admin: 08/04/17 08:37 Dose: 220 mg - Imaging and Cardiology Echo: report reviewed Cardiac cath: report reviewed Other Results: 12 hour tele: avg HR=86 SR. Brief run of PAF noted, 10 beats. - EKG Interpretation EKG results cardiology: personally reviewed Consult Discharge Plan - Plan Referrals: [facility] – [place],Guillermo Preciado MD [Primary Care Provider] -
[2017-08-04] MEDS: Budesonide/Formoterol 80/4.5 MDI IH SCH ×2 (10:52→22:52)
[2017-08-04] MEDS: Furosemide 40 MG TABLET PO SCH (12:00)
[2017-08-04] MEDS: Azithromycin 500 MG in D5% in Water 250 ML IVPB SCH (13:25)
--- NOTE | 2017-08-04 14:57 | Internal Med Progress Note ---
Date of Encounter: 08/04/17 Time of Encounter: 10:00 - Assessment and plan (1) Atrial fibrillation Current Visit: No Status: Chronic Assessment and plan: Remains NSR. Cont BB, cardizem and coumadin. Qualifiers: Atrial fibrillation type: paroxysmal Qualified Code(s): I48.0 - Paroxysmal atrial fibrillation (2) Nonhealing surgical wound Current Visit: No Status: Acute Assessment and plan: Surgical consult appreciated. No signs of infection per surgical evaluation. Continue wound care Qualifiers: Encounter type: subsequent encounter Qualified Code(s): T81.89XD - Other complications of procedures, not elsewhere classified, subsequent encounter (3) Diabetes mellitus Current Visit: No Status: Chronic Assessment and plan: Continue basal and sliding scale insulin coverage Qualifiers: Diabetes mellitus type: type 2 Diabetes mellitus complication status: with unspecified complications Diabetes mellitus intermediate project manager insulin use: without senior living use Qualified Code(s): E11.8 - Type 2 diabetes mellitus with unspecified complications (4) Decubitus ulcer of coccygeal region, stage 3 Current Visit: No Status: Acute Assessment and plan: Continue wound care. Nutrition consult saw pt. Ensure supplement, vitamin C and zinc placed (5) DVT prophylaxis Current Visit: No Status: Acute Assessment and plan: Started coumadin for A Fib now. (6) CAP (community acquired pneumonia) Current Visit: Yes Status: Acute Assessment and plan: Continue IV Abx. Switch to Azithromycin and rocephin . Continue oxygen and supportive treatment. Qualifiers: Laterality: right Lung location: middle lobe of lung Qualified Code(s): J18.1 - Lobar pneumonia, unspecified organism (7) Chronic diastolic CHF (congestive heart failure) Current Visit: Yes Status: Acute Assessment and plan: Appears euvolemic now. Continue home medications. (8) Bacteremia Current Visit: Yes Status: Acute Assessment and plan: Blood culture shows Escherichia coli. Etiology is undetermined. Difficult to explain by pneumonia. Probably contamination. Sensitivity shows pansensitive. Repeat blood culture negative 2. Continue abx at this point for his pneumonia. (9) EUGENIO (acute kidney injury) Current Visit: Yes Status: Acute Assessment and plan: Continue mild IV fluid and follow-up renal function. Patient also has mild metabolic acidosis, will add bicarbonate by mouth, switch NS to lactate ringers. - Time Spent With Patient 25 - 35 minutes - Subjective Interval history: Patient is a 71-year-old male admitted for community acquired pneumonia. Past medical history is significant for A. fib, prostate cancer, diabetes, hypertension, hyperlipidemia. Patient was seen and examined. Still mild shortness of breath. No cough no fever. HR remains NSR. Pt generally feels better now. Will cont abx for pneumonia, BB and cardizem po for HR control and coumadin for anticoagulation. Switch IVF to lactate ringers as pt has metabolic acidosis and high chloride level. Consult Pt/OT for weakness. - Constitutional Vitals: Temp Pulse Resp BP Pulse Ox 97.9 F 91 15 132/73 100 08/04/17 08:35 08/04/17 08:35 08/04/17 10:52 08/04/17 08:35 08/04/17 10:52 General appearance: Present: mild distress (Conversational dyspnea), A&O X 3, answers questions appropriately - Head Head exam: Present: atraumatic, normocephalic - Eye Eye exam: Present: PERRL, conjuntiva pink, sclera anicteric Pupils: Present: PERRL - Neck Neck exam general surgery: Present: supple, trachea midline. Absent: lymphadenopathy - Respiratory Respiratory exam: Present: CTAB. Absent: accessory muscle use, rales, rhonchi, wheezes Additional comments: Coarse breath sound B/L - Cardiovascular Cardiovascular exam: Present: RRR, +S1, +S2. Absent: diastolic murmur, gallop, rubs, systolic murmur - GI/Abdominal GI/Abdominal exam: Present: normal bowel sounds, soft, no peritoneal signs. Absent: distended, tenderness - Extremities Exam Extremities exam: Present: warm, radial pulses palpable and symmetrical. Absent : calf tenderness, cyanotic, pedal edema - Neurological Exam Neurological exam: Present: CN II-XII intact, oriented X3, no focal deficits. Absent: pronater drift, facial droop, speech deficit - Skin Skin exam: Present: dry, intact Internal Medicine: Result - Labs CBC & Chem 7: 08/04/17 04:51 08/04/17 04:51 Labs: Short CBC 08/04/17 Range/Units 04:51 WBC 9.6 (4.3-11.1) K/mcL Hgb 8.7 L (12.9-16.9) g/dL Hct 29.1 L (37.5-50.1) % Plt Count 407 H (140-400) K/mcL Neutrophils # 8.3 (1.6-8.9) K/mcL BMP 08/04/17 04:51 Sodium 140 Potassium 4.1 Chloride 117 H Carbon Dioxide 15 L BUN 28 H Creatinine 1.44 H Glucose 168 H Calcium 8.5 L - ABG Interpretation ABG results: PT/INR, D-dimer PT 16.6 Seconds (9.4-12.1) H 08/04/17 04:51 Consult Discharge Plan - Plan Referrals: Guillermo Garibay MD [Primary Care Provider] -
[2017-08-04] MEDS: *HR* Warfarin 3 MG TABLET PO SCH (16:57)
[2017-08-04] MEDS: Insulin DETEMIR 100 UNIT/ML X5UNITS SQ SCH (21:14)
[2017-08-05] MEDS: Ipratropium/Albuterol Neb 3 ML IH SCH ×4 (03:48→21:36)
[2017-08-05 06:17] LABS: INR 1.8; Prothrombin Time 19.6 Seconds (9.4-12.1)
[2017-08-05 06:19] LABS: Basophils % 0.3 %; Eosinophils # 0.1 K/mcL (0.0-0.6); Eosinophils % 1.1 %; Hematocrit 26.4 % (37.5-50.1); Immature Granulocytes % 1.6 % (0-4); Lymphocytes # 0.6 K/mcL (0.6-4.6); Lymphocytes % 7.6 %; Mean Corpuscular HGB Conc 30.3 g/dL (31.6-35.5); Mean Corpuscular Hemoglobin 26.9 pg (28.0-33.3); Mean Corpuscular Volume 88.9 fL (83.0-100.0); Mean Platelet Volume 9.3 fL (9.4-12.4); Monocytes # 0.6 K/mcL (0.0-1.3); Monocytes % 7.8 %; Neutrophils # 6.2 K/mcL (1.6-8.9); Platelet Count 403 K/mcL (140-400); Red Blood Count 2.97 M/mcL (4.19-5.50); Red Cell Distribution Width 16.9 % (11.5-14.5); Segmented Neutrophils % 81.6 %
[2017-08-05 06:23] LABS: BUN/Creatinine Ratio 16 (6-26); Blood Urea Nitrogen 21 mg/dL (8-26); Calcium 8.4 mg/dL (8.6-10.8); Carbon Dioxide 15 mEq/L (19-29); Chloride 117 mEq/L (98-109); Glucose 124 mg/dL (70-99); Osmolality,Calculated 294 (280-300); Potassium 3.8 mEq/L (3.5-4.5); Sodium 140 mEq/L (136-145); eGFR For African Americans > 60 (> 60); eGFR For Non-African Americans 54 (> 60)
[2017-08-05] MEDS: Aspirin 81 MG TAB.CHEW PO SCH (09:27)
[2017-08-05] MEDS: Ascorbic Acid 500 MG TABLET PO SCH (09:27)
[2017-08-05] MEDS: Insulin LISPRO 300 UNITS/3 ML VIAL SQ SCH ×4 (09:27→22:08)
[2017-08-05] MEDS: Zinc Sulfate 220 MG CAPSULE PO SCH (09:27)
[2017-08-05] MEDS: Folic Acid 1 MG TABLET PO SCH (09:28)
[2017-08-05] MEDS: Furosemide 40 MG TABLET PO SCH (09:28)
[2017-08-05] MEDS: Miconazole w/zinc oxide&karaya 92 APPL/92 GM TUBE TP SCH ×2 (09:28→22:08)
[2017-08-05] MEDS: Diltiazem CD (24hr) 120 MG CAPSULE PO SCH (09:28)
[2017-08-05] MEDS: Budesonide/Formoterol 80/4.5 MDI IH SCH ×2 (10:55→21:37)
[2017-08-05] MEDS: Ringers Solution, Lactated 1,000 ML IVC SCH (14:42)
[2017-08-05] MEDS: Azithromycin 500 MG in D5% in Water 250 ML IVPB SCH (14:43)
--- NOTE | 2017-08-05 17:45 | Internal Med Progress Note ---
Date of Encounter: 08/05/17 Time of Encounter: 10:00 - Assessment and plan (1) Atrial fibrillation Current Visit: No Status: Chronic Assessment and plan: Remains NSR. Cont BB, cardizem and coumadin. Qualifiers: Atrial fibrillation type: paroxysmal Qualified Code(s): I48.0 - Paroxysmal atrial fibrillation (2) Nonhealing surgical wound Current Visit: No Status: Acute Assessment and plan: Surgical consult appreciated. No signs of infection per surgical evaluation. Continue wound care Qualifiers: Encounter type: subsequent encounter Qualified Code(s): T81.89XD - Other complications of procedures, not elsewhere classified, subsequent encounter (3) Diabetes mellitus Current Visit: No Status: Chronic Assessment and plan: Continue basal and sliding scale insulin coverage Qualifiers: Diabetes mellitus type: type 2 Diabetes mellitus complication status: with unspecified complications Diabetes mellitus intermediate teacher insulin use: without alf use Qualified Code(s): E11.8 - Type 2 diabetes mellitus with unspecified complications (4) Decubitus ulcer of coccygeal region, stage 3 Current Visit: No Status: Acute Assessment and plan: Continue wound care. Nutrition consult saw pt. Ensure supplement, vitamin C and zinc placed (5) DVT prophylaxis Current Visit: No Status: Acute Assessment and plan: Started coumadin for A Fib now. (6) CAP (community acquired pneumonia) Current Visit: Yes Status: Acute Assessment and plan: Continue IV Abx. Switch to Azithromycin and rocephin . Continue oxygen and supportive treatment. Qualifiers: Laterality: right Lung location: middle lobe of lung Qualified Code(s): J18.1 - Lobar pneumonia, unspecified organism (7) Chronic diastolic CHF (congestive heart failure) Current Visit: Yes Status: Acute Assessment and plan: Appears euvolemic now. Continue home medications. (8) Bacteremia Current Visit: Yes Status: Acute Assessment and plan: Blood culture shows Escherichia coli. Etiology is undetermined. Difficult to explain by pneumonia. Probably contamination. Sensitivity shows pansensitive. Repeat blood culture negative 2. Continue abx at this point for his pneumonia. (9) EUGENIO (acute kidney injury) Current Visit: Yes Status: Acute Assessment and plan: Continue mild IV fluid and follow-up renal function. Patient also has mild metabolic acidosis, will add bicarbonate by mouth, switch NS to lactate ringers. - Time Spent With Patient 25 - 35 minutes - Subjective Interval history: Patient is a 71-year-old male admitted for community acquired pneumonia. Past medical history is significant for A. fib, prostate cancer, diabetes, hypertension, hyperlipidemia. Patient was seen and examined. Still mild shortness of breath, improved. No cough no fever. HR remains NSR. Pt generally feels better now. Will cont abx for pneumonia, BB and cardizem po for HR control and coumadin for anticoagulation. Renal function and acidosis improved, cont IVF - Constitutional Vitals: Temp Pulse Resp BP Pulse Ox 99.4 F 83 16 122/77 99 08/05/17 15:52 08/05/17 15:52 08/05/17 15:59 08/05/17 15:52 08/05/17 15:59 General appearance: Present: A&O X 3, no acute distress, answers questions appropriately - Head Head exam: Present: atraumatic, normocephalic - Eye Eye exam: Present: PERRL, conjuntiva pink, sclera anicteric Pupils: Present: PERRL - Neck Neck exam general surgery: Present: supple, trachea midline. Absent: lymphadenopathy - Respiratory Respiratory exam: Present: CTAB. Absent: accessory muscle use, rales, rhonchi, wheezes - Cardiovascular Cardiovascular exam: Present: RRR, +S1, +S2. Absent: diastolic murmur, gallop, rubs, systolic murmur - GI/Abdominal GI/Abdominal exam: Present: normal bowel sounds, soft, no peritoneal signs. Absent: distended, tenderness Additional comments: Colostomy bag in place. Abd wall wound. - Extremities Exam Extremities exam: Present: warm, radial pulses palpable and symmetrical. Absent : calf tenderness, cyanotic, pedal edema - Neurological Exam Neurological exam: Present: CN II-XII intact, oriented X3, no focal deficits. Absent: pronater drift, facial droop, speech deficit - Skin Skin exam: Present: dry Internal Medicine: Result - Labs CBC & Chem 7: 08/05/17 05:43 08/05/17 05:43 Labs: Short CBC 08/05/17 Range/Units 05:43 WBC 7.6 (4.3-11.1) K/mcL Hgb 8.0 L (12.9-16.9) g/dL Hct 26.4 L (37.5-50.1) % Plt Count 403 H (140-400) K/mcL Neutrophils # 6.2 (1.6-8.9) K/mcL BMP 08/05/17 05:43 Sodium 140 Potassium 3.8 Chloride 117 H Carbon Dioxide 15 L BUN 21 Creatinine 1.31 H Glucose 124 H Calcium 8.4 L - ABG Interpretation ABG results: PT/INR, D-dimer PT 19.6 Seconds (9.4-12.1) H 08/05/17 05:43 Consult Discharge Plan - Plan Referrals: Guillermo Garibay MD [Primary Care Provider] -
[2017-08-05] MEDS: *HR* Warfarin 3 MG TABLET PO SCH (17:58)
--- NOTE | 2017-08-05 20:52 | Electrocardiograph Report ---
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
--- NOTE | 2017-08-05 21:41 | Electrocardiograph Report ---
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
--- NOTE | 2017-08-05 21:44 | Electrocardiograph Report ---
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
[2017-08-05] MEDS: Insulin DETEMIR 100 UNIT/ML X5UNITS SQ SCH (22:07)
[2017-08-06] MEDS: Ipratropium/Albuterol Neb 3 ML IH SCH ×5 (03:48→21:37)
[2017-08-06 05:14] LABS: Basophils % 0.4 %; Eosinophils # 0.1 K/mcL (0.0-0.6); Eosinophils % 1.5 %; Hematocrit 28.9 % (37.5-50.1); Hemoglobin 8.6 g/dL (12.9-16.9); Immature Granulocytes % 1.6 % (0-4); Immature Platelets 1.3 % (1.1-6.1); Lymphocytes # 0.9 K/mcL (0.6-4.6); Lymphocytes % 11.8 %; Mean Corpuscular HGB Conc 29.8 g/dL (31.6-35.5); Mean Corpuscular Hemoglobin 26.6 pg (28.0-33.3); Mean Corpuscular Volume 89.5 fL (83.0-100.0); Mean Platelet Volume 9.2 fL (9.4-12.4); Monocytes # 0.6 K/mcL (0.0-1.3); Monocytes % 8.3 %; Neutrophils # 5.7 K/mcL (1.6-8.9); Platelet Count 452 K/mcL (140-400); Red Blood Count 3.23 M/mcL (4.19-5.50); Red Cell Distribution Width 16.8 % (11.5-14.5); Segmented Neutrophils % 76.4 %
[2017-08-06 05:21] LABS: INR 2.5; Prothrombin Time 27.8 Seconds (9.4-12.1)
[2017-08-06 05:26] LABS: Calcium 8.8 mg/dL (8.6-10.8); Potassium 4.1 mEq/L (3.5-4.5)
[2017-08-06] MEDS: Insulin LISPRO 300 UNITS/3 ML VIAL SQ SCH ×4 (07:39→22:34)
[2017-08-06] MEDS ORDERED: Azithromycin 250 MG TABLET PO SCH (09:00)
[2017-08-06] MEDS: Furosemide 40 MG TABLET PO SCH (09:45)
[2017-08-06] MEDS: Aspirin 81 MG TAB.CHEW PO SCH (09:45)
[2017-08-06] MEDS: Diltiazem CD (24hr) 120 MG CAPSULE PO SCH (09:45)
[2017-08-06] MEDS: Folic Acid 1 MG TABLET PO SCH (09:45)
[2017-08-06] MEDS: Zinc Sulfate 220 MG CAPSULE PO SCH (09:45)
[2017-08-06] MEDS: Ascorbic Acid 500 MG TABLET PO SCH ×2 (09:46→22:30)
[2017-08-06] MEDS: Ringers Solution, Lactated 1,000 ML IVC SCH (09:52)
[2017-08-06] MEDS: Budesonide/Formoterol 80/4.5 MDI IH SCH ×2 (10:25→21:37)
[2017-08-06] MEDS ORDERED: Acetaminophen 325 MG TABLET PO PRN (11:09)
--- NOTE | 2017-08-06 14:52 | Nephrology Consult Note ---
Date of Encounter: 08/06/17 Time of Encounter: 14:50 Assessment and Plan (1) EUGENIO (acute kidney injury) Current Visit: Yes Status: Acute Review of past records show normal kidney function recently Will proceed with the EUGENIO workup Renal ultrasound already done-bilat mild-mod hydronephrosis Avoid nephrotoxins Has robust UOP at 2125 ml today (2) Atrial fibrillation Current Visit: Yes Status: Acute per primary team Qualifiers: Atrial fibrillation type: paroxysmal Qualified Code(s): I48.0 - Paroxysmal atrial fibrillation (3) DM type 2 (diabetes mellitus, type 2) Current Visit: No Status: Chronic per primary team Qualifiers: Diabetes mellitus complication status: without complication 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 Mccain is a 71 year old male with a past medical history significant for CHF secondary to diastolic dysfunction with an EF of 60% in March 2017, diabetes mellitus type 2 on oral medication, COPD on 2 L of oxygen home, atrial fibrillation currently not on anticoagulation, prostate cancer currently not receiving treatment, he is tobacco abuse extensive, history of colectomy with colostomy who presented to the emergency room stating he is not feeling well. c /o being short of breath for the last 4-6 weeks with occasional wheezing. Nephrology has been consulted for a rise in patient's Scr. He denies ever having any kidney problems but has had diabetes and htn for many years. Past Med Surg Social Fam HX - Past Medical History Medical history: asthma, atrial fibrillation, cancer (Prostate cancer, has not had problems with this in years.), DVT, diabetes, hyperlipidemia, hypertension, other (Nerve damage to his right hand after punching a window years ago) Psychiatric history: no psych history - Past Surgical History Surgical History: carotid endarterectomy, cholecystectomy, colectomy, colostomy (Sounds as though this was done as a diverting colostomy due to his prostate cancer and radiation.), prostatectomy, other - Social History Smoking Status: Former smoker Smokeless Tobacco Status: No Alcohol use: none Drug use: none - Family History Father Adopted: No Living Status: Hx Family Cardiac Disorders: Yes Hx Family Respiratory Disorders: No Hx Family Cancer: No Hx Family GI Disorders: No Hx Family Endocrine Disorder: No Hx Family Neuromuscular Disorders: No Hx Family Neurologic Disorders: No Hx Family HEENT Disorders: No Hx Family Autoimmune Disorders: No Medications and Allergies Atorvastatin [Lipitor] 40 mg PO DAILY 09/22/15 [History] Ferrous Sulfate 325 mg PO BID 09/22/15 [History] Furosemide [Lasix] 40 mg PO DAILY 09/22/15 [History] Glimepiride [Amaryl] 4 mg PO DAILY 09/22/15 [History] Potassium Chloride 40 meq PO DAILY 09/22/15 [History] Folic Acid 1 mg PO DAILY #30 tablet 11/01/15 [Rx] Metoprolol [Lopressor] 25 mg PO DAILY 05/14/16 [History] SitaGLIPtin [Januvia] 100 mg PO DAILY 05/14/16 [History] Albuterol Sulfate [Proair Hfa] 2 puff IH Q4H PRN 06/07/16 [History] Aspirin 81 mg PO DAILY 08/13/16 [History] Diltiazem HCl [Diltiazem 24Hr Cd] 120 mg PO DAILY 03/19/17 [History] Metformin HCl [Glucophage] 1,000 mg PO BID 06/13/17 [History] Docusate Sodium [Colace] 100 mg PO BID #60 06/26/17 [Rx] Ranitidine HCl [Zantac] 150 mg PO BID PRN 07/08/17 [History] Albuterol Sulfate [Albuterol Inhaler] 2 puff IH Q4HR #1 hfa.aer.[id number] 07/12/17 [Rx] Fluticasone/Salmeterol [Advair Hfa 115-21 Mcg Inhaler] 2 puff IH BID 08/01/17 [ History] Rivaroxaban [Xarelto] 20 mg PO DAILY 08/06/17 [History] 3 Allergy/AdvReac Type Severity Reaction Status Date / Time No Known Allergies Allergy Verified 07/08/17 10:24 Review of Systems All Systems: reviewed and no additional remarkable complaints except as stated Constitutional: malaise, no chills, no fever(s) Cardiovascular: dyspnea, dyspnea on exertion, no chest pain Respiratory: dyspnea, wheezing Gastrointestinal: no abdominal pain Genitourinary Male: no dysuria Neurological: no behavioral changes Exam - Vital Signs Vital signs: Initial Vital Signs Temp Pulse Resp BP Pulse Ox 98.4 F 135 22 102/74 97 08/01/17 10:21 08/01/17 10:21 08/01/17 10:21 08/01/17 10:21 08/01/17 10:21 Vital Signs - Last 8 Hours Temp Pulse Resp BP Pulse Ox 08/06/17 11:14 98.1 F 93 14 122/85 97 08/06/17 10:25 16 98 08/06/17 07:18 98.1 F 98 14 130/77 98 Intake and Output 08/05/17 08/06/17 08/06/17 23:59 07:59 15:59 Intake Total 200 / 200 1200 / 1200 240 / 240 Output Total 410 / 410 1450 / 1450 1275 / 1275 Balance -210 / -210 -250 / -250 -1035 / -1035 Intake: IV Fluids 1000 / 1000 Lactated Ringers 1,000 ML 1000 / 1000 @ 75 mls/hr IVC .[id number] [facility] Rx#:[id number] Oral 200 / 200 200 / 200 240 / 240 Output: Urine 10 / 10 Urethral (Graves) 10 / 10 Stool 600 / 600 Catheter 400 / 400 1450 / 1450 675 / 675 Other: Meal Lunch Percent of Meal Consumed 45% # Urine Diapers 1 Weight 96.4 kg Blood Glucose* 183 102 190 Patient Weight 08/06/17 23:59 Weight 96.4 kg - General Appearance General appearance: well-developed, well-nourished EENT: ATNC, mucous membranes moist, hearing intact, vision intact Neck: supple Respiratory: clear (decreased) Cardiology: no edema, normal S1, normal S2 Gastrointestinal: no tenderness, no guarding Integumentary: warm and dry Neurologic: alert and oriented x3 Psychiatric: mood/affect appropriate, cooperative Results - Lab Results 08/06/17 04:32 08/06/17 04:32 Most recent lab results Calcium 8.8 mg/dL (8.6-10.8) 08/06/17 04:32 Magnesium 1.5 mg/dL (1.6-2.6) L 08/04/17 04:51 Consult Discharge Plan - Plan Referrals: Guillermo Garibay MD [Primary Care Provider] -
[2017-08-06 16:03] LABS: Bilirubin,Urine Negative (Negative); Blood,Urine Small (Negative); Clarity,Urine Cloudy (Clear); Color,Urine Yellow (Yellow); Glucose,Urine (UA) Normal (Normal); Ketones,Urine Negative (Negative); Leukocyte Esterase,Urine Large (Negative); Nitrite,Urine Negative (Negative); Protein,Urine Trace mg/dL (Neg-Trace); Specific Gravity,Urine 1.009 (1.010-1.025); Urobilinogen,Urine Normal (Normal)
[2017-08-06 16:14] LABS: Bacteria,Urine None Seen per hpf (None-Few); Hyaline Casts,Urine Few per lpf (None-Few); RBC,Urine 0-3 per hpf (0-3); Squamous Epithelial Cell,Urine Many per lpf (None-Few); WBC,Urine 50-100 per hpf (0-3)
[2017-08-06] MEDS: Miconazole w/zinc oxide&karaya 92 APPL/92 GM TUBE TP SCH ×2 (17:25→22:30)
--- NOTE | 2017-08-06 18:01 | Internal Med Progress Note ---
Date of Encounter: 08/06/17 Time of Encounter: 10:00 - Assessment and plan (1) Atrial fibrillation Current Visit: No Status: Chronic Assessment and plan: Remains NSR today. Cont BB, cardizem and coumadin. Qualifiers: Atrial fibrillation type: paroxysmal Qualified Code(s): I48.0 - Paroxysmal atrial fibrillation (2) Nonhealing surgical wound Current Visit: No Status: Acute Assessment and plan: Surgical consult appreciated. No signs of infection per surgical evaluation. 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 Nutrition consult saw pt. Ensure supplement, vitamin C and zinc placed (5) DVT prophylaxis Current Visit: No Status: Acute Assessment and plan: Started coumadin for A Fib now. (6) CAP (community acquired pneumonia) Current Visit: Yes Status: Acute Assessment and plan: Continue IV Abx. Switch to Azithromycin and rocephin . Continue oxygen and supportive treatment. Improved after treatment. May prolong abx to 10 days as he has blood culture positive once. Can change to po upon discharge. Qualifiers: Laterality: right Lung location: middle lobe of lung Qualified Code(s): J18.1 - Lobar pneumonia, unspecified organism (7) Chronic diastolic CHF (congestive heart failure) Current Visit: Yes Status: Acute Assessment and plan: Appears euvolemic now. Continue home medications. (8) Bacteremia Current Visit: Yes Status: Acute Assessment and plan: Blood culture shows Escherichia coli. Etiology is undetermined. Difficult to explain by pneumonia. Probably contamination. Sensitivity shows pansensitive. Repeat blood culture negative 2. Continue abx at this point for his pneumonia. (9) EUGENIO (acute kidney injury) Current Visit: Yes Status: Acute Assessment and plan: Continue mild IV fluid and follow-up renal function. Patient also has mild metabolic acidosis, will add bicarbonate by mouth, switch NS to lactate ringers. Not significantly improve after treatment, nephrology consult was called and input appreciated. - Time Spent With Patient 25 - 35 minutes - Subjective Interval history: Patient is a 71-year-old male admitted for community acquired pneumonia. Past medical history is significant for A. fib, prostate cancer, diabetes, hypertension, hyperlipidemia. Patient was seen and examined. Still mild shortness of breath, improved than yesterday. No cough no fever. HR remains NSR. Pt generally feels better now. Will cont abx for pneumonia, BB and cardizem po for HR control and coumadin for anticoagulation. Renal function and acidosis improved but not normalized altough several days of IVF, Nephro consulted. - Constitutional Vitals: Temp Pulse Resp BP Pulse Ox 98.3 F 78 20 122/85 97 08/06/17 15:38 08/06/17 15:38 08/06/17 15:44 08/06/17 15:38 08/06/17 15:44 General appearance: Present: A&O X 3, no acute distress, answers questions appropriately - Head Head exam: Present: atraumatic, normocephalic - Eye Eye exam: Present: PERRL, conjuntiva pink, sclera anicteric Pupils: Present: PERRL - Neck Neck exam general surgery: Present: supple, trachea midline. Absent: lymphadenopathy - Respiratory Respiratory exam: Present: CTAB. Absent: accessory muscle use, rales, rhonchi, wheezes - Cardiovascular Cardiovascular exam: Present: RRR, +S1, +S2. Absent: diastolic murmur, gallop, rubs, systolic murmur - GI/Abdominal GI/Abdominal exam: Present: normal bowel sounds, soft, no peritoneal signs. Absent: distended, tenderness Additional comments: Colostomy bag is in place. Abd wound well dressed. - Extremities Exam Extremities exam: Present: warm, radial pulses palpable and symmetrical. Absent : calf tenderness, cyanotic, pedal edema - Neurological Exam Neurological exam: Present: CN II-XII intact, oriented X3, no focal deficits. Absent: pronater drift, facial droop, speech deficit - Skin Skin exam: Present: dry, intact Internal Medicine: Result - Labs CBC & Chem 7: 08/06/17 04:32 08/06/17 04:32 Labs: Short CBC 08/06/17 Range/Units 04:32 WBC 7.5 (4.3-11.1) K/mcL Hgb 8.6 L (12.9-16.9) g/dL Hct 28.9 L (37.5-50.1) % Plt Count 452 H (140-400) K/mcL Neutrophils # 5.7 (1.6-8.9) K/mcL BMP 08/06/17 04:32 Sodium 141 Potassium 4.1 Chloride 115 H Carbon Dioxide 16 L BUN 19 Creatinine 1.46 H Glucose 112 H Calcium 8.8 Urine 08/06/17 Range/Units 15:50 Urine Color Yellow (Yellow) Urine Clarity Cloudy A (Clear) Urine pH 6.0 (5.0-8.0) pH Units Ur Specific [place] 1.009 L (1.010-1.025) Urine Protein Trace (Neg-Trace) mg/dL Urine Glucose (UA) Normal (Normal) mg/dL - ABG Interpretation ABG results: PT/INR, D-dimer PT 27.8 Seconds (9.4-12.1) H 08/06/17 04:32 - Impressions Impressions Retroperitoneum Ultrasound 08/06/17 13:00 IMPRESSION: Bilateral mild a moderate hydronephrosis, with some cortical thinning on the left. Simple appearing cyst in the upper pole of the left kidney. Hepatic steatosis. D/ / Jay Arvizu MD / Jay Arvizu MD Interpreting Provider: Jay Arvizu MD Consult Discharge Plan - Plan Referrals: Guillermo gonsales MD [Primary Care Provider] -
[2017-08-06] MEDS: Insulin DETEMIR 100 UNIT/ML X5UNITS SQ SCH (22:31)
[2017-08-07] MEDS: Ringers Solution, Lactated 1,000 ML IVC SCH ×4 (01:32→14:23)
[2017-08-07] MEDS: Ipratropium/Albuterol Neb 3 ML IH SCH ×4 (03:40→22:37)
[2017-08-07 05:49] LABS: INR 2.8
[2017-08-07 06:24] LABS: Basophils % 0.6 %; Eosinophils # 0.1 K/mcL (0.0-0.6); Eosinophils % 1.8 %; Hematocrit 27.5 % (37.5-50.1); Hemoglobin 8.2 g/dL (12.9-16.9); Immature Granulocytes % 1.9 % (0-4); Lymphocytes # 0.9 K/mcL (0.6-4.6); Lymphocytes % 12.9 %; Mean Corpuscular HGB Conc 29.8 g/dL (31.6-35.5); Mean Corpuscular Hemoglobin 26.5 pg (28.0-33.3); Mean Platelet Volume 9.4 fL (9.4-12.4); Monocytes # 0.6 K/mcL (0.0-1.3); Monocytes % 9.2 %; Platelet Count 342 K/mcL (140-400); Red Blood Count 3.09 M/mcL (4.19-5.50); Red Cell Distribution Width 16.8 % (11.5-14.5); Segmented Neutrophils % 73.6 %
[2017-08-07 07:04] LABS: BUN/Creatinine Ratio 16 (6-26); Blood Urea Nitrogen 20 mg/dL (8-26); Calcium 8.7 mg/dL (8.6-10.8); Carbon Dioxide 17 mEq/L (19-29); Chloride 113 mEq/L (98-109); Glucose 114 mg/dL (70-99); Osmolality,Calculated 293 (280-300); Potassium 4.2 mEq/L (3.5-4.5); Sodium 140 mEq/L (136-145); eGFR For African Americans > 60 (> 60); eGFR For Non-African Americans 56 (> 60)
[2017-08-07] MEDS: Insulin LISPRO 300 UNITS/3 ML VIAL SQ SCH ×4 (07:51→21:40)
[2017-08-07] MEDS: Furosemide 40 MG TABLET PO SCH (09:52)
[2017-08-07] MEDS: Aspirin 81 MG TAB.CHEW PO SCH (09:52)
[2017-08-07] MEDS: Ascorbic Acid 500 MG TABLET PO SCH ×2 (09:52→21:32)
[2017-08-07] MEDS: Diltiazem CD (24hr) 120 MG CAPSULE PO SCH (09:52)
[2017-08-07] MEDS: Folic Acid 1 MG TABLET PO SCH (09:52)
[2017-08-07] MEDS: Zinc Sulfate 220 MG CAPSULE PO SCH (09:52)
[2017-08-07] MEDS: Miconazole w/zinc oxide&karaya 92 APPL/92 GM TUBE TP SCH (09:53)
[2017-08-07] MEDS: Budesonide/Formoterol 80/4.5 MDI IH SCH ×2 (10:40→22:37)
[2017-08-07] MEDS ORDERED: *HR* Warfarin 3 MG TABLET PO ONE (18:00)
--- NOTE | 2017-08-07 18:12 | Internal Med Progress Note ---
Date of Encounter: 08/07/17 Time of Encounter: 09:00 - Assessment and plan (1) Atrial fibrillation Current Visit: No Status: Chronic Assessment and plan: Remains NSR today. Cont BB, cardizem and coumadin. Qualifiers: Atrial fibrillation type: paroxysmal Qualified Code(s): I48.0 - Paroxysmal atrial fibrillation (2) Nonhealing surgical wound Current Visit: No Status: Acute Assessment and plan: Surgical consult appreciated. No signs of infection per surgical evaluation. Continue wound care Qualifiers: Encounter type: subsequent encounter Qualified Code(s): T81.89XD - Other complications of procedures, not elsewhere classified, subsequent encounter (3) Diabetes mellitus Current Visit: No Status: Chronic Assessment and plan: Continue basal and sliding scale insulin coverage Qualifiers: Diabetes mellitus type: type 2 Diabetes mellitus complication status: with unspecified complications Diabetes mellitus terminal gauger insulin use: without shelter use Qualified Code(s): E11.8 - Type 2 diabetes mellitus with unspecified complications (4) Decubitus ulcer of coccygeal region, stage 3 Current Visit: No Status: Acute Assessment and plan: Continue wound care. Nutrition consult saw pt. Ensure supplement, vitamin C and zinc placed (5) DVT prophylaxis Current Visit: No Status: Acute Assessment and plan: Started coumadin for A Fib now. (6) CAP (community acquired pneumonia) Current Visit: Yes Status: Acute Assessment and plan: Continue IV Abx. Switch to rocephin only . Continue oxygen and supportive treatment. Improved after treatment. May prolong abx to 10 days as he has blood culture positive once. Can change to po upon discharge. Qualifiers: Laterality: right Lung location: middle lobe of lung Qualified Code(s): J18.1 - Lobar pneumonia, unspecified organism (7) Chronic diastolic CHF (congestive heart failure) Current Visit: Yes Status: Acute Assessment and plan: Appears euvolemic now. Continue home medications. (8) Bacteremia Current Visit: Yes Status: Acute Assessment and plan: Blood culture shows Escherichia coli. Etiology is undetermined. Difficult to explain by pneumonia. Probably contamination. Sensitivity shows pansensitive. Repeat blood culture negative 2. Continue abx at this point for his pneumonia. (9) EUGENIO (acute kidney injury) Current Visit: Yes Status: Acute Assessment and plan: Continue mild IV fluid and follow-up renal function. Patient also has mild metabolic acidosis, will add bicarbonate by mouth, switch NS to lactate ringers. Not significantly improve after treatment, nephrology consult was called and input appreciated. - Time Spent With Patient 25 - 35 minutes - Subjective Interval history: Patient is a 71-year-old male admitted for community acquired pneumonia. Past medical history is significant for A. fib, prostate cancer, diabetes, hypertension, hyperlipidemia. Patient was seen and examined. Improved shortness of breath. No cough no fever. HR remains NSR. Pt generally feels better now. Will cont abx for pneumonia, BB and cardizem po for HR control and coumadin for anticoagulation. Renal function and acidosis improved but not normalized. Cont IVF, Nephro consulted appreciated. - Constitutional Vitals: Temp Pulse Resp BP Pulse Ox 98.3 F 85 12 129/73 92 08/07/17 15:25 08/07/17 15:25 08/07/17 15:25 08/07/17 15:25 08/07/17 15:25 General appearance: Present: A&O X 3, no acute distress, answers questions appropriately - Head Head exam: Present: atraumatic, normocephalic - Eye Eye exam: Present: PERRL, conjuntiva pink, sclera anicteric Pupils: Present: PERRL - Neck Neck exam general surgery: Present: supple, trachea midline. Absent: lymphadenopathy - Respiratory Respiratory exam: Present: CTAB. Absent: accessory muscle use, rales, rhonchi, wheezes - Cardiovascular Cardiovascular exam: Present: RRR, +S1, +S2. Absent: diastolic murmur, gallop, rubs, systolic murmur - GI/Abdominal GI/Abdominal exam: Present: normal bowel sounds, soft, no peritoneal signs. Absent: distended, tenderness - Extremities Exam Extremities exam: Present: warm, radial pulses palpable and symmetrical. Absent : calf tenderness, cyanotic, pedal edema - Neurological Exam Neurological exam: Present: CN II-XII intact, oriented X3, no focal deficits. Absent: pronater drift, facial droop, speech deficit - Skin Skin exam: Present: dry, intact Internal Medicine: Result - Labs CBC & Chem 7: 08/07/17 05:12 08/07/17 05:12 Labs: Short CBC 08/07/17 Range/Units 05:12 WBC 6.7 (4.3-11.1) K/mcL Hgb 8.2 L (12.9-16.9) g/dL Hct 27.5 L (37.5-50.1) % Plt Count 342 (140-400) K/mcL Neutrophils # 5.0 (1.6-8.9) K/mcL BMP 08/07/17 05:12 Sodium 140 Potassium 4.2 Chloride 113 H Carbon Dioxide 17 L BUN 20 Creatinine 1.27 H Glucose 114 H Calcium 8.7 - ABG Interpretation ABG results: PT/INR, D-dimer PT 31.0 Seconds (9.4-12.1) H 08/07/17 05:12 Consult Discharge Plan - Plan Referrals: Guillermo Garibay MD [Primary Care Provider] - 08/16/17 3:45 pm
[2017-08-07] MEDS: Insulin DETEMIR 100 UNIT/ML X5UNITS SQ SCH (21:40)
[2017-08-08] MEDS: Miconazole w/zinc oxide&karaya 92 APPL/92 GM TUBE TP SCH ×3 (00:48→20:29)
[2017-08-08] MEDS: Ipratropium/Albuterol Neb 3 ML IH SCH ×4 (03:30→20:57)
[2017-08-08 04:52] LABS: Basophils % 0.5 %; Eosinophils # 0.1 K/mcL (0.0-0.6); Eosinophils % 1.5 %; Hematocrit 29.4 % (37.5-50.1); Hemoglobin 8.9 g/dL (12.9-16.9); Lymphocytes % 12.1 %; Mean Corpuscular HGB Conc 30.3 g/dL (31.6-35.5); Mean Corpuscular Hemoglobin 26.8 pg (28.0-33.3); Mean Corpuscular Volume 88.6 fL (83.0-100.0); Mean Platelet Volume 9.3 fL (9.4-12.4); Monocytes # 0.7 K/mcL (0.0-1.3); Monocytes % 8.8 %; Neutrophils # 5.9 K/mcL (1.6-8.9); Platelet Count 305 K/mcL (140-400); Red Blood Count 3.32 M/mcL (4.19-5.50); Red Cell Distribution Width 16.6 % (11.5-14.5); Segmented Neutrophils % 75.1 %
[2017-08-08 04:56] LABS: INR 1.8; Prothrombin Time 19.9 Seconds (9.4-12.1)
[2017-08-08 05:05] LABS: BUN/Creatinine Ratio 18 (6-26); Blood Urea Nitrogen 21 mg/dL (8-26); Calcium 8.8 mg/dL (8.6-10.8); Carbon Dioxide 20 mEq/L (19-29); Chloride 110 mEq/L (98-109); Glucose 123 mg/dL (70-99); Osmolality,Calculated 296 (280-300); Potassium 4.2 mEq/L (3.5-4.5); Sodium 141 mEq/L (136-145); eGFR For African Americans > 60 (> 60); eGFR For Non-African Americans > 60 (> 60)
[2017-08-08] MEDS: Ringers Solution, Lactated 1,000 ML IVC SCH (05:30)
[2017-08-08] MEDS: Insulin LISPRO 300 UNITS/3 ML VIAL SQ SCH ×4 (08:42→20:44)
[2017-08-08] MEDS: Furosemide 40 MG TABLET PO SCH (09:37)
[2017-08-08] MEDS: Ascorbic Acid 500 MG TABLET PO SCH ×2 (09:37→20:27)
[2017-08-08] MEDS: Zinc Sulfate 220 MG CAPSULE PO SCH (09:37)
[2017-08-08] MEDS: Lactobacillus 1 EACH CAP.SPRINK PO SCH (09:37)
[2017-08-08] MEDS: Diltiazem CD (24hr) 120 MG CAPSULE PO SCH (09:37)
[2017-08-08] MEDS: Aspirin 81 MG TAB.CHEW PO SCH (09:37)
[2017-08-08] MEDS: Folic Acid 1 MG TABLET PO SCH (09:37)
--- NOTE | 2017-08-08 10:39 | Nephrology Progress Note ---
Date of Encounter: 08/08/17 Time of Encounter: 10:34 - Assessment and Plan (1) EUGENIO (acute kidney injury) Current Visit: Yes Status: Acute Kidney function back to normal Recommend consult to urology for bilateral mild to moderate hydronephrosis as seen on renal ultrasound Nephrology signing off case. Thank you for the consult. Please re-consult if needed. 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 States he is feeling well. Objective - Vital Signs Vital signs: Vital Signs Temp Pulse Resp BP Pulse Ox 08/08/17 06:00 98.5 F 90 15 136/87 95 08/08/17 04:00 98.5 F 88 18 124/72 97 08/07/17 23:37 18 98 08/07/17 19:47 98.1 F 95 18 127/72 97 08/07/17 15:25 98.3 F 85 12 129/73 92 08/07/17 15:15 18 98 08/07/17 11:14 98.1 F 84 12 130/74 97 08/07/17 10:42 18 97 Intake and Output 08/07/17 08/08/17 08/08/17 23:59 07:59 15:59 Intake Total 290 / 290 1000 / 1000 480 / 480 Output Total 775 / 775 1200 / 1200 550 / 550 Balance -485 / -485 -200 / -200 -70 / -70 Intake: IV Fluids 1000 / 1000 Lactated Ringers 1,000 ML @ 75 1000 / 1000 mls/hr IVC .[id number] [facility] Rx#: [id number] Oral 290 / 290 0 / 0 480 / 480 Output: Stool 50 / 50 550 / 550 Catheter 725 / 725 1200 / 1200 Other: Meal Dinner Breakfast Percent of Meal Consumed 100% 100% Weight 96.1 kg 96.1 kg Blood Glucose* 286 132 Patient Weight 08/08/17 23:59 Weight 96.1 kg - General Appearance General appearance: Present: well-developed EENT: Present: ATNC, mucous membranes moist, hearing intact, vision intact Neck: Present: supple Respiratory: Present: clear Cardiology: Present: no edema, normal S1, normal S2 Gastrointestinal: Present: no tenderness, no guarding Integumentary: Present: warm and dry Neurologic: Present: alert and oriented x3 Psychiatric: Present: mood/affect appropriate, cooperative - Lab 08/08/17 04:30 08/08/17 04:30 Most recent lab results Calcium 8.8 mg/dL (8.6-10.8) 08/08/17 04:30 Magnesium 1.5 mg/dL (1.6-2.6) L 08/04/17 04:51 Urine Creatinine 20 mg/dL 08/06/17 15:50 Urine Sodium 64.0 mEq/L 08/06/17 15:50 Urine Total Protein 20 mg/dL (1-14) H 08/06/17 15:50 Consult Discharge Plan - Plan Referrals: Guillermo Garibay MD [Primary Care Provider] - 08/16/17 3:45 pm
[2017-08-08] MEDS: Budesonide/Formoterol 80/4.5 MDI IH SCH ×2 (10:48→20:57)
--- NOTE | 2017-08-08 17:20 | Internal Med Progress Note ---
Date of Encounter: 08/08/17 Time of Encounter: 10:00 - Assessment and plan (1) Atrial fibrillation Current Visit: No Status: Chronic Assessment and plan: Remains NSR today. Cont BB, cardizem and coumadin. Qualifiers: Atrial fibrillation type: paroxysmal Qualified Code(s): I48.0 - Paroxysmal atrial fibrillation (2) Nonhealing surgical wound Current Visit: No Status: Acute Assessment and plan: Surgical consult appreciated. No signs of infection per surgical evaluation. Continue wound care Qualifiers: Encounter type: subsequent encounter Qualified Code(s): T81.89XD - Other complications of procedures, not elsewhere classified, subsequent encounter (3) Diabetes mellitus Current Visit: No Status: Chronic Assessment and plan: Continue basal and sliding scale insulin coverage Qualifiers: Diabetes mellitus type: type 2 Diabetes mellitus complication status: with unspecified complications Diabetes mellitus intermodal dispatcher insulin use: without fpc use Qualified Code(s): E11.8 - Type 2 diabetes mellitus with unspecified complications (4) Decubitus ulcer of coccygeal region, stage 3 Current Visit: No Status: Acute Assessment and plan: Continue wound care. Nutrition consult saw pt. Ensure supplement, vitamin C and zinc placed. Graves catheter placed as pt has urinary incontinence (5) DVT prophylaxis Current Visit: No Status: Acute Assessment and plan: Started coumadin for A Fib now. (6) CAP (community acquired pneumonia) Current Visit: Yes Status: Acute Assessment and plan: Continue IV Abx. Switch to rocephin only . Continue oxygen and supportive treatment. Improved after treatment. May prolong abx to 10 days as he has blood culture positive once. Can change to po upon discharge. Qualifiers: Laterality: right Lung location: middle lobe of lung Qualified Code(s): J18.1 - Lobar pneumonia, unspecified organism (7) Chronic diastolic CHF (congestive heart failure) Current Visit: Yes Status: Acute Assessment and plan: Appears euvolemic now. Continue home medications. (8) Bacteremia Current Visit: Yes Status: Acute Assessment and plan: Blood culture shows Escherichia coli. Etiology is undetermined. Difficult to explain by pneumonia. Probably contamination. Sensitivity shows pansensitive. Repeat blood culture negative 2. Continue abx at this point for his pneumonia. (9) EUGENIO (acute kidney injury) Current Visit: Yes Status: Acute Assessment and plan: Improved, DC IV fluid, continue by mouth bicarbonate. Nephrology consult appreciated. We will also consult urology for bilateral mild to moderate hydronephrosis. - Time Spent With Patient 25 - 35 minutes - Subjective Interval history: Patient is a 71-year-old male admitted for community acquired pneumonia. Past medical history is significant for A. fib, prostate cancer, diabetes, hypertension, hyperlipidemia. Patient was seen and examined. Improved shortness of breath. No cough no fever. HR remains NSR. Pt generally feels better now. Will cont abx for pneumonia, BB and cardizem po for HR control and coumadin for anticoagulation. Renal function and acidosis improved to normal level. We will consult urology today for bilateral mild to moderate hydronephrosis. - Constitutional Vitals: Temp Pulse Resp BP Pulse Ox 98.2 F 83 15 137/81 96 08/08/17 15:36 08/08/17 15:36 08/08/17 15:36 08/08/17 15:36 08/08/17 15:36 General appearance: Present: A&O X 3, no acute distress, answers questions appropriately - Head Head exam: Present: atraumatic, normocephalic - Eye Eye exam: Present: PERRL, conjuntiva pink, sclera anicteric Pupils: Present: PERRL - Neck Neck exam general surgery: Present: supple, trachea midline. Absent: lymphadenopathy - Respiratory Respiratory exam: Present: CTAB. Absent: accessory muscle use, rales, rhonchi, wheezes - Cardiovascular Cardiovascular exam: Present: RRR, +S1, +S2. Absent: diastolic murmur, gallop, rubs, systolic murmur - GI/Abdominal GI/Abdominal exam: Present: normal bowel sounds, soft, no peritoneal signs. Absent: distended, tenderness Additional comments: Cholostomy bag in place. Abdominal wall wound well dressed. - Extremities Exam Extremities exam: Present: warm, radial pulses palpable and symmetrical. Absent : calf tenderness, cyanotic, pedal edema - Neurological Exam Neurological exam: Present: CN II-XII intact, oriented X3, no focal deficits. Absent: pronater drift, facial droop, speech deficit - Skin Skin exam: Present: dry, intact Internal Medicine: Result - Labs CBC & Chem 7: 08/08/17 04:30 08/08/17 04:30 Labs: Short CBC 08/08/17 Range/Units 04:30 WBC 7.9 (4.3-11.1) K/mcL Hgb 8.9 L (12.9-16.9) g/dL Hct 29.4 L (37.5-50.1) % Plt Count 305 (140-400) K/mcL Neutrophils # 5.9 (1.6-8.9) K/mcL BMP 08/08/17 04:30 Sodium 141 Potassium 4.2 Chloride 110 H Carbon Dioxide 20 BUN 21 Creatinine 1.16 Glucose 123 H Calcium 8.8 - ABG Interpretation ABG results: PT/INR, D-dimer PT 19.9 Seconds (9.4-12.1) H 08/08/17 04:30 Consult Discharge Plan - Plan Referrals: Guillermo Garibay MD [Primary Care Provider] - 08/16/17 3:45 pm
[2017-08-08] MEDS ORDERED: *HR* Warfarin 2 MG TABLET PO ONE (18:00)
--- NOTE | 2017-08-08 18:04 | Urology - Consult Note ---
Date of Encounter: 08/08/17 Time of Encounter: 18:01 - Assessment and Plan (1) Hydronephrosis Current Visit: No Status: Acute Assessment and plan: 71-year-old man with a history of prostate cancer and hydronephrosis. He has otherwise had some chronic right-sided hydronephrosis, but it seems to have gotten worse. His creatinine bumped up as well. A catheter has been placed and his creatinine has improved. He should be discharged home with a catheter and he can follow up with Dr. Huerta in 1-2 weeks to discuss a possible voiding trial versus continuing the catheter. Please call with any questions. Urine culture was negative from August 06, 2017. Qualifiers: Hydronephrosis type: other Qualified Code(s): N13.39 - Other hydronephrosis Urology CN:SUNG Consult date: 08/08/17 Reason for consult Urology: Hydronephrosis History of present illness: 71-year-old man with a history of prostate cancer currently on Lupron injections was admitted and had renal insufficiency. Nephrology consult was obtained. A renal and bladder ultrasound showed worsening bilateral hydronephrosis. A catheter was inserted. His renal function has improved after the catheter was placed. He had previously had an indwelling catheter for some time to help with urge incontinence, but it was removed in the last year. He was doing fairly well otherwise, but it seems his renal function worsens. He is feeling better today and is comfortable with the catheter. Past Med Surg Social Fam HX - Past Medical History Medical history: asthma, atrial fibrillation, cancer (Prostate cancer, has not had problems with this in years.), DVT, diabetes, hyperlipidemia, hypertension, other (Nerve damage to his right hand after punching a window years ago) Psychiatric history: no psych history - Past Surgical History Surgical History: carotid endarterectomy, cholecystectomy, colectomy, colostomy (Sounds as though this was done as a diverting colostomy due to his prostate cancer and radiation.), prostatectomy, other - Social History Smoking Status: Former smoker Smokeless Tobacco Status: No Alcohol use: none Drug use: none - Family History Father Adopted: No Living Status: Hx Family Cardiac Disorders: Yes Hx Family Respiratory Disorders: No Hx Family Cancer: No Hx Family GI Disorders: No Hx Family Endocrine Disorder: No Hx Family Neuromuscular Disorders: No Hx Family Neurologic Disorders: No Hx Family HEENT Disorders: No Hx Family Autoimmune Disorders: No Medications and Allergies Atorvastatin [Lipitor] 40 mg PO DAILY 09/22/15 [History] Ferrous Sulfate 325 mg PO BID 09/22/15 [History] Furosemide [Lasix] 40 mg PO DAILY 09/22/15 [History] Glimepiride [Amaryl] 4 mg PO DAILY 09/22/15 [History] Potassium Chloride 40 meq PO DAILY 09/22/15 [History] Folic Acid 1 mg PO DAILY #30 tablet 11/01/15 [Rx] Metoprolol [Lopressor] 25 mg PO DAILY 05/14/16 [History] SitaGLIPtin [Januvia] 100 mg PO DAILY 05/14/16 [History] Albuterol Sulfate [Proair Hfa] 2 puff IH Q4H PRN 06/07/16 [History] Aspirin 81 mg PO DAILY 08/13/16 [History] Diltiazem HCl [Diltiazem 24Hr Cd] 120 mg PO DAILY 03/19/17 [History] Metformin HCl [Glucophage] 1,000 mg PO BID 06/13/17 [History] Docusate Sodium [Colace] 100 mg PO BID #60 06/26/17 [Rx] Ranitidine HCl [Zantac] 150 mg PO BID PRN 07/08/17 [History] Albuterol Sulfate [Albuterol Inhaler] 2 puff IH Q4HR #1 hfa.aer.ad 07/12/17 [Rx] Fluticasone/Salmeterol [Advair Hfa 115-21 Mcg Inhaler] 2 puff IH BID 08/01/17 [ History] Rivaroxaban [Xarelto] 20 mg PO DAILY 08/06/17 [History] 3 Allergy/AdvReac Type Severity Reaction Status Date / Time No Known Allergies Allergy Verified 07/08/17 10:24 Review of Systems - Constitutional no chills, no fever(s) - EENT Nose, mouth and throat: no dizziness - Cardiovascular no chest pain - Respiratory no dyspnea - Gastrointestinal no nausea, no vomiting - Genitourinary no flank pain, no hematuria - Musculoskeletal no back pain - Integumentary no erythema, no rash - Neurological no weakness - Psychiatric no suicidal ideation - Hematologic/Lymphatic no easy bleeding - Allergic/Immunologic no wheezing Exam Initial Vital Signs Temp Pulse Resp BP Pulse Ox 98.4 F 135 22 102/74 97 08/01/17 10:21 08/01/17 10:21 08/01/17 10:21 08/01/17 10:08/01/17 10:21 - General physical appearance Present: well developed, well nourished, no distress - Eyes Absent: icteric - ENT Present: normal nares - Neck Present: trachea midline - Respiratory Present: normal respiratory effort - Cardiovascular Cardiovascular exam IM: RRR - Abdomen Abdomen: Present: soft Urology Results - Labs 08/08/17 04:30 08/08/17 04:30 Abnormal lab results RBC 3.32 M/mcL (4.19-5.50) L 08/08/17 04:30 Hgb 8.9 g/dL (12.9-16.9) L 08/08/17 04:30 Hct 29.4 % (37.5-50.1) L 08/08/17 04:30 MCH 26.8 pg (28.0-33.3) L 08/08/17 04:30 MCHC 30.3 g/dL (31.6-35.5) L 08/08/17 04:30 RDW 16.6 % (11.5-14.5) H 08/08/17 04:30 MPV 9.3 fL (9.4-12.4) L 08/08/17 04:30 PT 19.9 Seconds (9.4-12.1) H 08/08/17 04:30 APTT 42.3 Seconds (26.0-36.0) H 08/01/17 13:06 Chloride 110 mEq/L (98-109) H 08/08/17 04:30 Glucose 123 mg/dL (70-99) H 08/08/17 04:30 POC Glucose 176 (58-89) H 08/08/17 15:38 Hemoglobin A1c 6.5 % (-5.6) H 08/01/17 13:06 Magnesium 1.5 mg/dL (1.6-2.6) L 08/04/17 04:51 AST 36 Units/L (5-34) H 08/01/17 13:06 Alkaline Phosphatase 171 Units/L (38-126) H 08/01/17 13:06 Creatine Kinase 11 Units/L (30-200) L 08/06/17 04:32 Serum Total Protein 8.6 g/dL (6.0-8.3) H 08/01/17 13:06 Albumin 1.9 g/dL (3.5-5.0) L 08/01/17 13:06 Globulin 6.7 g/dL (2.4-3.5) H 08/01/17 13:06 Albumin/Globulin Ratio 0.3 (1.1-2.2) L 08/01/17 13:06 Urine Clarity Cloudy (Clear) A 08/06/17 15:50 Ur Specific [place] 1.009 (1.010-1.025) L 08/06/17 15:50 Urine Blood Small (Negative) H 08/06/17 15:50 Ur Leukocyte Esterase Large (Negative) H 08/06/17 15:50 Urine Microscopic WBC 50-100 per hpf (0-3) H 08/06/17 15:50 Ur Squamous Epith Cells Many per lpf (None-Few) H 08/06/17 15:50 Ur Culture Indicated? YES (NO) A 08/06/17 15:50 Protein/Creatinin Ratio 1.00 mg/mg (0-0.20) H 08/06/17 15:50 Urine Total Protein 20 mg/dL (1-14) H 08/06/17 15:50 Enterobacteriac sp PCR DETECTED (Not Detect) A 08/01/17 13:06 E. coli (PCR) DETECTED (Not Detect) A 08/01/17 13:06 Diabetes panel 08/08/17 Range/Units 04:30 Sodium 141 (136-145) mEq/L Potassium 4.2 (3.5-4.5) mEq/L Chloride 110 H (98-109) mEq/L Carbon Dioxide 20 (19-29) mEq/L BUN 21 (8-26) mg/dL Creatinine 1.16 (0.72-1.25) mg/dL Glucose 123 H (70-99) mg/dL Calcium 8.8 (8.6-10.8) mg/dL Calcium panel 08/08/17 Range/Units 04:30 Calcium 8.8 (8.6-10.8) mg/dL Pituitary panel 08/08/17 Range/Units 04:30 Sodium 141 (136-145) mEq/L Potassium 4.2 (3.5-4.5) mEq/L Chloride 110 H (98-109) mEq/L Carbon Dioxide 20 (19-29) mEq/L BUN 21 (8-26) mg/dL Creatinine 1.16 (0.72-1.25) mg/dL Glucose 123 H (70-99) mg/dL Calcium 8.8 (8.6-10.8) mg/dL Adrenal panel 08/08/17 Range/Units 04:30 Sodium 141 (136-145) mEq/L Potassium 4.2 (3.5-4.5) mEq/L Chloride 110 H (98-109) mEq/L Carbon Dioxide 20 (19-29) mEq/L BUN 21 (8-26) mg/dL Creatinine 1.16 (0.72-1.25) mg/dL Glucose 123 H (70-99) mg/dL Calcium 8.8 (8.6-10.8) mg/dL All other labs normal. - Imaging US - abdomen: report reviewed, image reviewed US - kidney/bladder: report reviewed, image reviewed Consult Discharge Plan - Plan Referrals: [facility] [place],Guillermo Preciado MD [Primary Care Provider] - 08/16/17 3:45 pm
[2017-08-08] MEDS: Insulin DETEMIR 100 UNIT/ML X5UNITS SQ SCH (20:45)
[2017-08-09] MEDS: Ipratropium/Albuterol Neb 3 ML IH SCH ×4 (03:30→22:01)
[2017-08-09 05:27] LABS: INR 1.7; Prothrombin Time 18.3 Seconds (9.4-12.1)
[2017-08-09] MEDS: Diltiazem CD (24hr) 120 MG CAPSULE PO SCH (08:35)
[2017-08-09] MEDS: Miconazole w/zinc oxide&karaya 92 APPL/92 GM TUBE TP SCH ×2 (08:35→22:29)
[2017-08-09] MEDS: Aspirin 81 MG TAB.CHEW PO SCH (08:36)
[2017-08-09] MEDS: Lactobacillus 1 EACH CAP.SPRINK PO SCH (08:36)
[2017-08-09] MEDS: Folic Acid 1 MG TABLET PO SCH (08:36)
[2017-08-09] MEDS: Furosemide 40 MG TABLET PO SCH (08:36)
[2017-08-09] MEDS: Ascorbic Acid 500 MG TABLET PO SCH ×2 (08:37→22:27)
[2017-08-09] MEDS: Zinc Sulfate 220 MG CAPSULE PO SCH (08:37)
[2017-08-09] MEDS: Insulin LISPRO 300 UNITS/3 ML VIAL SQ SCH ×4 (08:37→22:27)
--- NOTE | 2017-08-09 10:23 | Discharge Summary ---
Date of Encounter: 08/09/17 Time of Encounter: 09:00 - Discharge Diagnosis (1) Atrial fibrillation Priority: Primary Status: Chronic Qualifiers: Atrial fibrillation type: paroxysmal Qualified Code(s): I48.0 - Paroxysmal atrial fibrillation (2) Nonhealing surgical wound Priority: Secondary Status: Acute Qualifiers: Encounter type: subsequent encounter Qualified Code(s): T81.89XD - Other complications of procedures, not elsewhere classified, subsequent encounter (3) Diabetes mellitus Priority: Secondary Status: Chronic Qualifiers: Diabetes mellitus type: type 2 Diabetes mellitus complication status: with unspecified complications Diabetes mellitus emt intermediate insulin use: without longterm use Qualified Code(s): E11.8 - Type 2 diabetes mellitus with unspecified complications (4) Decubitus ulcer of coccygeal region, stage 3 Priority: Secondary Status: Acute (5) DVT prophylaxis Priority: Secondary Status: Acute (6) CAP (community acquired pneumonia) Priority: Primary Status: Acute Qualifiers: Laterality: right Lung location: middle lobe of lung Qualified Code(s): J18.1 - Lobar pneumonia, unspecified organism (7) Chronic diastolic CHF (congestive heart failure) Priority: Secondary Status: Acute (8) Bacteremia Priority: Primary Status: Acute (9) EUGENIO (acute kidney injury) Priority: Primary Status: Acute (10) Hydronephrosis Priority: Primary Status: Acute Qualifiers: Hydronephrosis type: other Qualified Code(s): N13.39 - Other hydronephrosis - Discharge Medications Prescriptions: Ascorbic Acid [Vitamin C] 500 mg PO BID #30 tablet GuaiFENesin ER [Mucinex] 600 mg PO BID #30 tbbp.12hr Lactobacillus [Culturelle] 1 each PO DAILY #14 cap.sprink Sodium Bicarbonate 650 mg PO TID #180 tablet Zinc Sulfate 220 mg PO DAILY #3 capsule Home Medications: Atorvastatin [Lipitor] 40 mg PO DAILY 09/22/15 [History] Ferrous Sulfate 325 mg PO BID 09/22/15 [History] Furosemide [Lasix] 40 mg PO DAILY 09/22/15 [History] Glimepiride [Amaryl] 4 mg PO DAILY 09/22/15 [History] Potassium Chloride 40 meq PO DAILY 09/22/15 [History] Folic Acid 1 mg PO DAILY #30 tablet 11/01/15 [Rx] Metoprolol [Lopressor] 25 mg PO DAILY 05/14/16 [History] SitaGLIPtin [Januvia] 100 mg PO DAILY 05/14/16 [History] Albuterol Sulfate [Proair Hfa] 2 puff IH Q4H PRN 06/07/16 [History] Aspirin 81 mg PO DAILY 08/13/16 [History] Diltiazem HCl [Diltiazem 24Hr Cd] 120 mg PO DAILY 03/19/17 [History] Metformin HCl [Glucophage] 1,000 mg PO BID 06/13/17 [History] Docusate Sodium [Colace] 100 mg PO BID #60 06/26/17 [Rx] Ranitidine HCl [Zantac] 150 mg PO BID PRN 07/08/17 [History] Albuterol Sulfate [Albuterol Inhaler] 2 puff IH Q4HR #1 hfa.aer.ad 07/12/17 [Rx] Fluticasone/Salmeterol [Advair Hfa 115-21 Mcg Inhaler] 2 puff IH BID 08/01/17 [ History] Amoxicillin/Clavulanate [Augmentin] 500 mg PO BIDWM #6 tablet 08/09/17 [Rx] Ascorbic Acid [Vitamin C] 500 mg PO BID #30 tablet 08/09/17 [Rx] GuaiFENesin ER [Mucinex] 600 mg PO BID #30 tbbp.12hr 08/09/17 [Rx] Lactobacillus [Culturelle] 1 each PO DAILY #14 cap.sprink 08/09/17 [Rx] Sodium Bicarbonate 650 mg PO TID #180 tablet 08/09/17 [Rx] Warfarin [Coumadin] 2 mg PO 1800 #7 tablet 08/09/17 [Rx] Zinc Sulfate 220 mg PO DAILY #3 capsule 08/09/17 [Rx] Allergies/Adverse Reactions: 3 Allergy/AdvReac Type Severity Reaction Status Date / Time No Known Allergies Allergy Verified 07/08/17 10:24 Procedures/tests Complete & Pending: Procedures Performed prior 72 hours Category Date Time Status US retroperitoneal limited [US] Routine Exams 08/06/17 13:00 Completed - Notes to Outpatient Provider 1. Patient started the Coumadin from hospitalization. He is on 2mg po daily now , INR goal 2-3. Please follow up INR and change dose accordingly. 2. Pt was started sodium bicarbonate 650mg po tid, please f/u BMP. 3. Patient has bilateral hydronephrosis, on Graves, please continue Graves until see urology as outpatient Date of admission: 08/01/17 15:32 Primary care physician: Guillermo Garibay MD Consults: 08/02/17 04:34 Consult to Wound Care [CONS] Routine Reason for Consult: Skin breakdown in sacral area and abdomen Call Completed: No 08/02/17 10:01 Consult to Surgery [CONS] Routine Consulting Provider: [facility] Reason for Consult: Incision site wound/infection Call Completed: Yes 08/03/17 07:57 Consult to Cardiology [CONS] Routine Comment: Consulting Provider: Cardiology [place] Reason for Consult: A Fib RVR Call Completed: No 08/04/17 09:23 Consult to [facility] [CONS] Routine Reason for SW Consult: Started on Coumadin; coordinate outpt INR monitoring with PCP and home health care 08/04/17 14:50 Consult to Occupational Therapy [CONS] Routine Comment: Evaluate, develop and implement POC Reason for Consult: weakness Consult to Physical Therapy [CONS] Routine Comment: Evaluate, develop and implement POC Reason for Consult: weakness 08/06/17 13:06 Consult to Nephrology [CONS] Routine Consulting Provider: [facility]/EZE/JOEY/THANG Reason for Consult: Acidosis, EUGENIO/CKD Call Completed: Yes 08/08/17 12:49 Consult to Urology [CONS] Routine Consulting Provider: Urology [facility] Reason for Consult: B/L mild hydronephrosis Call Completed: Yes Discharging clinician: Tg Coleman Anticipated date of discharge: 08/09/17 - Patient Status Disposition: Home Health Service Condition: Good - Discharge Instructions Follow Up With: Guillermo Garibay MD [Primary Care Provider] - 08/16/17 3:45 pm - Diet and Activity Activity: as per physical therapy Diet: diabetic diet, other (Supplement with ensure HP) Interval History: HPI on adm: Mr. Mccain is a 71 year old male with a past medical history significant for CHF secondary to diastolic dysfunction with an EF of 60% in March 2017, diabetes mellitus type 2 on oral medication, COPD on 2 L of oxygen home, atrial fibrillation currently not on anticoagulation, prostate cancer currently not receiving treatment, he is tobacco abuse extensive, history of colectomy with colostomy. Patient presents to the emergency room states he is not feeling well. States he has been short of breath for the last 4-6 weeks with occasional wheezing. He also has a cough productive of yellow sputum. He denies any fevers or chills. No chest pain. He states he feels like he has gained weight some lower extremity edema. Recent states that he has not had felt well for at least 4-6 weeks. He has been using his inhalers at home and states he has been compliant with all his medications. Patient presented to the emergency room for evaluation. On arrival he had a temperature 98.4, heart rate of 135 sinus rhythm, respiratory rate of 22 with conversational dyspnea, blood pressure 102/ 74. Satting 97% on 2 L. On exam he appeared dehydrated with dry mucous membranes and skin with diminished turgor. His lungs showed diminished breath sounds at the bases bilaterally without wheezing or rub or rhonchi. Heart was tachycardic with regular rhythm. Abdomen was nontender. Extremities showed trace edema. Labs showed a white count of 14.8, hemoglobin 10.5, segs 91. BUN/ creatinine 56 over 2.63, sodium 131, potassium 4.8, chloride 105, CO2 of 10. Blood sugar of 213. Lactic acid is pending. Chest x-ray showed a right infrahilar infiltrate. She was given Levaquin in the emergency room empirically for community acquired pneumonia. Evaluation of this patient in the emergency room, he met several sepsis criteria , and he was placed on the sepsis protocol with aggressive IV fluids, close monitoring. Patient was admitted. Blood cultures are ordered. Hospital course: Mr. Mccain is a 71 year old male admitted as a community acquired pneumonia. He was treated with IV azithromycin and Rocephin. His condition has improved significantly. Patient has metabolic acidosis with EUGENIO. He was treated with IV fluid and by mouth sodium bicarbonate. Nephrology consult was called. Patient's kidney function has improved after treatment. Metabolic acidosis has resolved. Patient was found bilateral mild to moderate hydronephrosis. Urology consult was called and saw patient, recommend continue Graves and a follow-up urology as outpatient. Patient was found 1 sets of blood culture positive with Escherichia coli, consider contamination, repeat blood culture negative and the patient has no fever. He did develop paroxysmal A. fib RVR during hospitalization, switched to sinus rhythm now. Cardiology consult called and saw patient, recommend to start the Coumadin for anticoagulation considering patient's kidney function is not good. Coumadin started, INR was monitored. I saw and examined the patient today. He is awake alert, oriented 3. No shortness of breath. Mild cough with whitish sputum. Vitals are stable. Will discharge patient home with home health. Give him Coumadin 2 mg by mouth daily. Check INR on Saturday by home health. Will continue antibiotics with Augmentin for 3 more days. - Time Spent with Patient Total time spent providing and/or coordinating discharge services: 40 minutes Greater than 30 minutes - Constitutional Vitals: Temp Pulse Resp BP Pulse Ox 97.9 F 88 18 138/76 95 08/09/17 07:46 08/09/17 07:46 08/09/17 07:46 08/09/17 07:46 08/09/17 07:46 General appearance: Present: A&O X 3, no acute distress, answers questions appropriately - Head Head exam: Present: atraumatic, normocephalic - Eye Eye exam: Present: PERRL, conjuntiva pink, sclera anicteric Pupils: Present: PERRL - Neck Neck exam general surgery: Present: supple, trachea midline. Absent: lymphadenopathy - Respiratory Respiratory exam: Present: CTAB. Absent: accessory muscle use, rales, rhonchi, wheezes - Cardiovascular Cardiovascular exam: Present: RRR, +S1, +S2. Absent: diastolic murmur, gallop, rubs, systolic murmur - GI/Abdominal GI/Abdominal exam: Present: normal bowel sounds, soft, no peritoneal signs. Absent: distended, tenderness Additional comments: Colostomy bag in place - Extremities Exam Extremities exam: Present: warm, radial pulses palpable and symmetrical. Absent : calf tenderness, cyanotic, pedal edema - Neurological Exam Neurological exam: Present: CN II-XII intact, oriented X3, no focal deficits. Absent: pronater drift, facial droop, speech deficit - Skin Skin exam: Present: dry, intact
--- NOTE | 2017-08-09 10:47 | Physician Discharge Referral ---
Home Health/Hosp Referral Info Transfer to: Home Health Provider in Charge Post Discharge: PCP - Diagnosis (1) Atrial fibrillation Priority: Primary Status: Chronic (2) Nonhealing surgical wound Priority: Secondary Status: Acute (3) Diabetes mellitus Priority: Secondary Status: Chronic (4) Decubitus ulcer of coccygeal region, stage 3 Priority: Secondary Status: Acute (5) DVT prophylaxis Priority: Secondary Status: Acute (6) CAP (community acquired pneumonia) Priority: Primary Status: Acute (7) Chronic diastolic CHF (congestive heart failure) Priority: Secondary Status: Acute (8) Bacteremia Priority: Primary Status: Acute (9) EUGENIO (acute kidney injury) Priority: Primary Status: Acute (10) Hydronephrosis Priority: Primary Status: Acute - Respiratory Orders Oxygen / L per min (2) Smoking Cessation: Smoking cessation has been advised. For more information, call the [employer] Tobacco Quit Line at 7-226-ZHBS-NOW. - Dressing/Wound Care Site: Abd and buttock - Diet/Nutrition Diet/Nutrition Orders: No Concentrated Sweets (Diabetic diet with ensure supplements) - Services Needed Following services are medically necessary services: Nursing, Home Health Aide, Physical Therapy, Occupational Therapy Other Treatments: 1.Please draw blood and check PT/INR on Saturday (08/12/17) and periodically per PCP 2. Continue Graves care - Transfer Medications Prescriptions: Amoxicillin/Clavulanate [Augmentin] 500 mg PO BIDWM #6 tablet Ascorbic Acid [Vitamin C] 500 mg PO BID #30 tablet GuaiFENesin ER [Mucinex] 600 mg PO BID #30 tbbp.12hr Lactobacillus [Culturelle] 1 each PO DAILY #14 cap.sprink Sodium Bicarbonate 650 mg PO TID #180 tablet Warfarin [Coumadin] 2 mg PO 1800 #7 tablet Zinc Sulfate 220 mg PO DAILY #3 capsule Home Medications: Atorvastatin [Lipitor] 40 mg PO DAILY 09/22/15 [History] Ferrous Sulfate 325 mg PO BID 09/22/15 [History] Furosemide [Lasix] 40 mg PO DAILY 09/22/15 [History] Glimepiride [Amaryl] 4 mg PO DAILY 09/22/15 [History] Potassium Chloride 40 meq PO DAILY 09/22/15 [History] Folic Acid 1 mg PO DAILY #30 tablet 11/01/15 [Rx] Metoprolol [Lopressor] 25 mg PO DAILY 05/14/16 [History] SitaGLIPtin [Januvia] 100 mg PO DAILY 05/14/16 [History] Albuterol Sulfate [Proair Hfa] 2 puff IH Q4H PRN 06/07/16 [History] Aspirin 81 mg PO DAILY 08/13/16 [History] Diltiazem HCl [Diltiazem 24Hr Cd] 120 mg PO DAILY 03/19/17 [History] Metformin HCl [Glucophage] 1,000 mg PO BID 06/13/17 [History] Docusate Sodium [Colace] 100 mg PO BID #60 06/26/17 [Rx] Ranitidine HCl [Zantac] 150 mg PO BID PRN 07/08/17 [History] Albuterol Sulfate [Albuterol Inhaler] 2 puff IH Q4HR #1 hfa.aer.ad 07/12/17 [Rx] Fluticasone/Salmeterol [Advair Hfa 115-21 Mcg Inhaler] 2 puff IH BID 08/01/17 [ History] Amoxicillin/Clavulanate [Augmentin] 500 mg PO BIDWM #6 tablet 08/09/17 [Rx] Ascorbic Acid [Vitamin C] 500 mg PO BID #30 tablet 08/09/17 [Rx] GuaiFENesin ER [Mucinex] 600 mg PO BID #30 tbbp.12hr 08/09/17 [Rx] Lactobacillus [Culturelle] 1 each PO DAILY #14 cap.sprink 08/09/17 [Rx] Sodium Bicarbonate 650 mg PO TID #180 tablet 08/09/17 [Rx] Warfarin [Coumadin] 2 mg PO 1800 #7 tablet 08/09/17 [Rx] Zinc Sulfate 220 mg PO DAILY #3 capsule 08/09/17 [Rx] Allergies/Adverse Reactions: 3 Allergy/AdvReac Type Severity Reaction Status Date / Time No Known Allergies Allergy Verified 07/08/17 10:24 Certification: Further, I certify that my clinical findings support that this patient is homebound (i.e. absences from home require considerable and taxing effort and are for medical reasons or [facility] or infrequently or short duration when for other reasons) because: Homebound Reason: Patient requires assistance of a person or device to safely leave home Attestation: My signature below is to certify that this patient is under my care and that I, or nurse practitioner, or a physician's clinic office assistant working with me, has a face-to -face encounter with this patient.
[2017-08-09] MEDS: Budesonide/Formoterol 80/4.5 MDI IH SCH ×2 (10:57→22:01)
--- NOTE | 2017-08-09 14:15 | Event Note ---
Date of Encounter: 08/09/17 Time of Encounter: 14:00 Per RN reports, there is suspected blood in the colostomy bag. I examined pt at bedside, colostomy bag is changed to a new one and there is no blood in it now. Vitals stable, pt feels fine. However, patient lives alone and the home health nurse not available until Saturday. Will keep patient in hospital, continue close monitor vitals and H and H. Hold aspirin but continue Coumadin as patient has A. fib. DC discharge. Continue by mouth Augmentin in the hospital.
[2017-08-09] MEDS: Amoxicillin/Clavulanate 500 MG TABLET PO SCH (17:01)
[2017-08-09] MEDS ORDERED: *HR* Warfarin 2 MG TABLET PO SCH (18:00)
[2017-08-09] MEDS: Insulin DETEMIR 100 UNIT/ML X5UNITS SQ SCH (22:28)
[2017-08-10] MEDS: Ipratropium/Albuterol Neb 3 ML IH SCH ×3 (03:33→15:27)
[2017-08-10 06:34] LABS: Basophils # 0.1 K/mcL (0.0-0.2); Basophils % 0.7 %; Eosinophils # 0.1 K/mcL (0.0-0.6); Eosinophils % 1.4 %; Hemoglobin 9.2 g/dL (12.9-16.9); Immature Granulocytes % 1.7 % (0-4); Lymphocytes % 13.4 %; Mean Corpuscular HGB Conc 29.7 g/dL (31.6-35.5); Mean Corpuscular Hemoglobin 25.8 pg (28.0-33.3); Mean Corpuscular Volume 87.1 fL (83.0-100.0); Mean Platelet Volume 9.8 fL (9.4-12.4); Monocytes # 0.6 K/mcL (0.0-1.3); Monocytes % 7.9 %; Neutrophils # 5.3 K/mcL (1.6-8.9); Platelet Count 255 K/mcL (140-400); Red Blood Count 3.56 M/mcL (4.19-5.50); Red Cell Distribution Width 16.7 % (11.5-14.5); Segmented Neutrophils % 74.9 %
[2017-08-10 06:38] LABS: INR 1.7; Prothrombin Time 18.4 Seconds (9.4-12.1)
[2017-08-10] MEDS: Insulin LISPRO 300 UNITS/3 ML VIAL SQ SCH ×2 (08:51→11:11)
[2017-08-10] MEDS: Diltiazem CD (24hr) 120 MG CAPSULE PO SCH (08:52)
[2017-08-10] MEDS: Amoxicillin/Clavulanate 500 MG TABLET PO SCH (08:52)
[2017-08-10] MEDS: Furosemide 40 MG TABLET PO SCH (08:53)
[2017-08-10] MEDS: Miconazole w/zinc oxide&karaya 92 APPL/92 GM TUBE TP SCH (08:53)
[2017-08-10] MEDS: Zinc Sulfate 220 MG CAPSULE PO SCH (08:53)
[2017-08-10] MEDS: Lactobacillus 1 EACH CAP.SPRINK PO SCH (08:53)
[2017-08-10] MEDS: Folic Acid 1 MG TABLET PO SCH (08:53)
[2017-08-10] MEDS: Ascorbic Acid 500 MG TABLET PO SCH (08:53)
[2017-08-10] MEDS: Budesonide/Formoterol 80/4.5 MDI IH SCH (10:50)
[2017-08-10 10:55] VITALS: BP 106/74
--- NOTE | 2017-08-10 11:06 | Internal Med Progress Note ---
Date of Encounter: 08/10/17 Time of Encounter: 10:00 - Assessment and plan (1) Atrial fibrillation Current Visit: No Status: Chronic Assessment and plan: Remains NSR today. Cont BB, cardizem and coumadin. Qualifiers: Atrial fibrillation type: paroxysmal Qualified Code(s): I48.0 - Paroxysmal atrial fibrillation (2) Nonhealing surgical wound Current Visit: No Status: Acute Assessment and plan: Surgical consult appreciated. No signs of infection per surgical evaluation. Continue wound care Qualifiers: Encounter type: subsequent encounter Qualified Code(s): T81.89XD - Other complications of procedures, not elsewhere classified, subsequent encounter (3) Diabetes mellitus Current Visit: No Status: Chronic Assessment and plan: Continue basal and sliding scale insulin coverage Qualifiers: Diabetes mellitus type: type 2 Diabetes mellitus complication status: with unspecified complications Diabetes mellitus exterminator helper insulin use: without prison use Qualified Code(s): E11.8 - Type 2 diabetes mellitus with unspecified complications (4) Decubitus ulcer of coccygeal region, stage 3 Current Visit: No Status: Acute Assessment and plan: Continue wound care. Nutrition consult saw pt. Ensure supplement, vitamin C and zinc placed. Graves catheter placed as pt has urinary incontinence (5) DVT prophylaxis Current Visit: No Status: Acute Assessment and plan: Started coumadin for A Fib now. (6) CAP (community acquired pneumonia) Current Visit: Yes Status: Acute Assessment and plan: Continue IV Abx. Switch to rocephin only . Continue oxygen and supportive treatment. Improved after treatment. May prolong abx to 10 days as he has blood culture positive once. Can change to po upon discharge. Qualifiers: Laterality: right Lung location: middle lobe of lung Qualified Code(s): J18.1 - Lobar pneumonia, unspecified organism (7) Chronic diastolic CHF (congestive heart failure) Current Visit: Yes Status: Acute Assessment and plan: Appears euvolemic now. Continue home medications. (8) Bacteremia Current Visit: Yes Status: Acute Assessment and plan: Blood culture shows Escherichia coli. Etiology is undetermined. Difficult to explain by pneumonia. Probably contamination. Sensitivity shows pansensitive. Repeat blood culture negative 2. Continue abx at this point for his pneumonia. (9) EUGENIO (acute kidney injury) Current Visit: Yes Status: Acute Assessment and plan: Improved, DC IV fluid, continue by mouth bicarbonate. Nephrology consult appreciated. (10) Hydronephrosis Current Visit: No Status: Acute Assessment and plan: Urology see pt, keep Graves now and follow up with urology in office. Qualifiers: Hydronephrosis type: other Qualified Code(s): N13.39 - Other hydronephrosis (11) Colostomy hemorrhage Current Visit: Yes Status: Suspected Assessment and plan: Suspect hemorrhage. Pt was observed one more day, no bleeding, no vitals change , H/H stable. Will hold ASA but cont coumadin for PAF, Home health to cont closely watching out. - Time Spent With Patient 25 - 35 minutes - Subjective Interval history: Patient is a 71-year-old male admitted for community acquired pneumonia. Past medical history is significant for A. fib, prostate cancer, diabetes, hypertension, hyperlipidemia. Patient was seen and examined. Improved shortness of breath. No cough no fever. HR remains NSR. Pt generally feels better now. No dizziness, lightheaded. Vitals stable. Check the colostomy bag no blood at all. H/H stable , no drop. Will cont to hold ASA upon discharge. Pt will discharge home today and cont closely watch out by . - Constitutional Vitals: Temp Pulse Resp BP Pulse Ox 98.1 F 81 16 106/74 97 08/10/17 10:54 08/10/17 10:54 08/10/17 10:54 08/10/17 10:54 08/10/17 10:54 General appearance: Present: A&O X 3, no acute distress, answers questions appropriately - Head Head exam: Present: atraumatic, normocephalic - Eye Eye exam: Present: PERRL, conjuntiva pink, sclera anicteric Pupils: Present: PERRL - Neck Neck exam general surgery: Present: supple, trachea midline. Absent: lymphadenopathy - Respiratory Respiratory exam: Present: CTAB. Absent: accessory muscle use, rales, rhonchi, wheezes - Cardiovascular Cardiovascular exam: Present: RRR, +S1, +S2. Absent: diastolic murmur, gallop, rubs, systolic murmur - GI/Abdominal GI/Abdominal exam: Present: normal bowel sounds, soft, no peritoneal signs. Absent: distended, tenderness - Extremities Exam Extremities exam: Present: warm, radial pulses palpable and symmetrical. Absent : calf tenderness, cyanotic, pedal edema - Neurological Exam Neurological exam: Present: CN II-XII intact, oriented X3, no focal deficits. Absent: pronater drift, facial droop, speech deficit - Skin Skin exam: Present: dry, intact Internal Medicine: Result - Labs CBC & Chem 7: 08/10/17 05:53 08/08/17 04:30 Labs: Short CBC 08/10/17 Range/Units 05:53 WBC 7.1 (4.3-11.1) K/mcL Hgb 9.2 L (12.9-16.9) g/dL Hct 31.0 L (37.5-50.1) % Plt Count 255 (140-400) K/mcL Neutrophils # 5.3 (1.6-8.9) K/mcL - ABG Interpretation ABG results: PT/INR, D-dimer PT 18.4 Seconds (9.4-12.1) H 08/10/17 05:53 Consult Discharge Plan - Plan Referrals: Milan Huerta MD [Partnered Physician] - 08/20/17 1:15 pm Guillermo Garibay MD [Primary Care Provider] - 08/16/17 3:45 pm Prescriptions: Amoxicillin/Clavulanate [Augmentin] 500 mg PO BIDWM #6 tablet Ascorbic Acid [Vitamin C] 500 mg PO BID #30 tablet GuaiFENesin ER [Mucinex] 600 mg PO BID #30 tbbp.12hr Lactobacillus [Culturelle] 1 each PO DAILY #14 cap.sprink Sodium Bicarbonate 650 mg PO TID #180 tablet Warfarin [Coumadin] 2 mg PO 1800 #7 tablet Zinc Sulfate 220 mg PO DAILY #3 capsule
[2017-08-10] MEDS ORDERED: FLUARIX QUAD 2017-18 36MOS UP/PF 0.5 ML SYRINGE IM ONE (15:42)
== END 2017-08-10 15:30 | disposition home health service (06) | DRG 853 ==
LOC: 3BNU 10:06 → EMEROO 10:06 → 2NENU 14:51 → SUATTDRO 15:32 → 2NENU 16:32
PROVIDERS: ADMIT Registered Nurse; ATTEND Internal Medicine

== ENCOUNTER 2017-08-16 17:29 | Inpatient (IN) ==
[2017-08-16] MEDS ORDERED: 0.9 % Sodium Chloride 1,000 ML IVC ONE ×2 (17:34→18:46)
--- NOTE | 2017-08-16 17:42 | Emergency Department Note ---
Disposition Clinical Impression: Sepsis Disposition: Still a Patient Referrals: Guillermo Garibay MD [Primary Care Provider] - Forms: ED Satisfaction Letter Weakness HPI - General Chief complaint: ED Weakness Stated complaint: Weakness Time Seen by Provider: 08/16/17 17:32 Source: patient, EMS Mode of arrival: EMS Limitations: no limitations Nursing Notes Reviewed: Yes Vital Signs Reviewed: Yes - History of Present Illness HPI Narrative: Patient presents to the ED via EMS with the chief complaint of generalized weakness and shortness of breath. According to EMS and the patient. He was just admitted to the hospital for pneumonia and discharged approximately one week ago. Patient states he has not gotten any better since then. He reports actually feels worse now. Reports generalized weakness that has been gradually increasing over the last week. No focal weaknesses. Does have a history of paroxysmal A. fib, but he was taken off Coumadin for an unknown reason. Patient is complaining of a headache that has been intermittent over the last week. Complaining of coughing and congestion. Denies chest pain, but is feeling more short of breath than usual. Denies any abdominal pain, nausea, vomiting. Does state that he has a history of prostate cancer and has a chronic Graves catheter. 6. He also has an ulcer on his buttock that is peeling. Pain Scale: 0 - Related Data Home Medications Medication Instructions Recorded Confirmed Atorvastatin [Lipitor] 40 mg PO DAILY 09/22/15 08/01/17 Ferrous Sulfate 325 mg PO BID 09/22/15 08/01/17 Furosemide [Lasix] 40 mg PO DAILY 09/22/15 08/01/17 Glimepiride [Amaryl] 4 mg PO DAILY 09/22/15 08/01/17 Potassium Chloride 40 meq PO DAILY 09/22/15 08/01/17 Metoprolol [Lopressor] 25 mg PO DAILY 05/14/16 08/01/17 SitaGLIPtin [Januvia] 100 mg PO DAILY 05/14/16 08/01/17 Albuterol Sulfate [Proair Hfa] 2 puff IH Q4H PRN 06/07/16 08/01/17 Aspirin 81 mg PO DAILY 08/13/16 08/01/17 Diltiazem HCl [Diltiazem 24Hr Cd] 120 mg PO DAILY 03/19/17 08/01/17 Metformin HCl [Glucophage] 1,000 mg PO BID 06/13/17 08/01/17 Ranitidine HCl [Zantac] 150 mg PO BID PRN 07/08/17 08/01/17 Fluticasone/Salmeterol [Advair Hfa 2 puff IH BID 08/01/17 08/01/17 115-21 Mcg Inhaler] Previous Rx's Medication Instructions Recorded Folic Acid 1 mg PO DAILY #30 tablet 11/01/15 Docusate Sodium [Colace] 100 mg PO BID #60 06/26/17 Albuterol Sulfate [Albuterol 2 puff IH Q4HR #1 hfa.aer.ad 07/12/17 Inhaler] Amoxicillin/Clavulanate [Augmentin] 500 mg PO BIDWM #6 tablet 08/09/17 Ascorbic Acid [Vitamin C] 500 mg PO BID #30 tablet 08/09/17 GuaiFENesin ER [Mucinex] 600 mg PO BID #30 tbbp.12hr 08/09/17 Lactobacillus [Culturelle] 1 each PO DAILY #14 cap.sprink 08/09/17 Sodium Bicarbonate 650 mg PO TID #180 tablet 08/09/17 Warfarin [Coumadin] 2 mg PO 1800 #7 tablet 08/09/17 Zinc Sulfate 220 mg PO DAILY #3 capsule 08/09/17 Allergies Allergy/AdvReac Type Severity Reaction Status Date / Time No Known Allergies Allergy Verified 07/08/17 10:24 All systems ED: reviewed and negative except as stated. Constitutional: Reports: weakness. Denies: fever Eyes: Denies: vision change Cardiovascular: Denies: chest pain Respiratory: Reports: cough, dyspnea Gastrointestinal: Denies: abdominal pain, vomiting Genitourinary: Reports: as per HPI Musculoskeletal: Denies: back pain Neurological: Reports: headache, weakness. Denies: numbness, paresthesias, confusion Endocrine: Reports: fatigue Past Medical History - Past Medical History Attestation: Yes The following information was validated with the patient. Source: patient Medical history: Reports: asthma, atrial fibrillation, cancer, DVT, diabetes, hyperlipidemia, hypertension, other Surgical history: Reports: carotid endarterectomy, cholecystectomy, colectomy, colostomy (Sounds as though this was done as a diverting colostomy due to his prostate cancer and radiation.), prostatectomy, other Psychiatric history: Reports: no psych history - Social History Smoking Status: Former smoker Smokeless Tobacco Status: No Alcohol use: Reports: none Drug use: Reports: none Physical Exam - General Limitations: no limitations General appearance: alert, in no apparent distress, obese, other (appears ill but non toxic ) - Head Head exam: atraumatic, normocephalic, normal inspection - Eye Eye exam: Present: normal appearance, PERRL, EOMI - ENT ENT exam: mucous membranes dry - Chest Chest inspection: Present: normal inspection, symmetric chest wall rise - Respiratory Respiratory exam: Present: normal lung sounds bilaterally - Cardiovascular Cardiovascular exam: Present: regular rate, normal rhythm, normal heart sounds - Abdominal Exam Abdominal exam: Present: soft, Non-Tender. Absent: tenderness, distention, guarding, rebound, rigidity - Extremities Exam Extremities exam: Present: normal inspection, full ROM, normal capillary refill , pedal edema (1-2+ pitting ). Absent: tenderness - Expanded Lower Extremity Exam Hip/Pelvis exam: Present: pelvis stable - Neurological Exam Neurological exam: Present: alert, oriented X3, CN II-XII intact - Psychiatric Psychiatric exam: Present: normal affect, normal mood - Skin Skin exam: Present: warm, dry, intact, normal color Course Vital Signs Temperature 98.0 F 08/16/17 17:33 Pulse Rate 103 08/16/17 17:33 Respiratory Rate 20 08/16/17 17:33 Blood Pressure 125/92 08/16/17 17:33 O2 Sat by Pulse Oximetry 97 08/16/17 17:33 Temperature 98.0 F 08/16/17 17:33 Pulse Rate 103 08/16/17 17:33 Respiratory Rate 20 08/16/17 17:33 Blood Pressure 125/92 08/16/17 17:33 O2 Sat by Pulse Oximetry 97 08/16/17 17:33 Oxygen Delivery Oxygen Delivery Room Air Weakness - Medical Records Medical records reviewed: Yes I reviewed the patient's medical records. - Lab Data Lab results reviewed: Yes I reviewed the patient's lab results. Result diagrams: 08/16/17 18:00 08/16/17 18:00 Lab Results 08/16/17 08/16/17 08/16/17 Range/Units 18:00 18:00 18:00 WBC 12.7 H D (4.3-11.1) K/mcL RBC 4.29 (4.19-5.50) M/mcL Hgb 11.4 L D (12.9-16.9) g/dL Hct 37.4 L (37.5-50.1) % MCV 87.2 (83.0-100.0) fL MCH 26.6 L (28.0-33.3) pg MCHC 30.5 L (31.6-35.5) g/dL RDW 18.9 H (11.5-14.5) % Plt Count 342 (140-400) K/mcL MPV 10.2 (9.4-12.4) fL Immature Gran % 0.9 (0-4) % Seg Neutrophils % 80.5 % Lymphocytes % 12.0 % Monocytes % 5.6 % Eosinophils % 0.2 % Basophils % 0.8 % Neutrophils # 10.2 H (1.6-8.9) K/mcL Lymphocytes # 1.5 (0.6-4.6) K/mcL Monocytes # 0.7 (0.0-1.3) K/mcL Eosinophils # 0.0 (0.0-0.6) K/mcL Basophils # 0.1 (0.0-0.2) K/mcL Sodium 135 L (136-145) mEq/L Potassium 4.6 H (3.5-4.5) mEq/L Chloride 105 (98-109) mEq/L Carbon Dioxide 14 L (19-29) mEq/L BUN 36 H (8-26) mg/dL Creatinine 1.87 H (0.72-1.25) mg/dL Est GFR ( Amer) 44 L (> 60) Est GFR (Non-Af Amer) 36 L (> 60) BUN/Creatinine Ratio 19 (6-26) Glucose 189 H (70-99) mg/dL Calculated Osmolality 293 (280-300) Lactic Acid 3.7 H (0.5-2.2) mmol/L Calcium 9.8 (8.6-10.8) mg/dL Phosphorus 3.1 (2.3-4.7) mg/dL Magnesium 1.4 L (1.6-2.6) mg/dL Total Bilirubin 0.3 (0.2-1.2) mg/dL AST 33 (5-34) Units/L ALT 39 (0-55) Units/L Alkaline Phosphatase 149 H (38-126) Units/L Creatine Kinase 17 L (30-200) Units/L Troponin I (0-0.03) ng/mL Serum Total Protein 8.1 (6.0-8.3) g/dL Albumin 2.9 L (3.5-5.0) g/dL Globulin 5.2 H (2.4-3.5) g/dL Albumin/Globulin Ratio 0.6 L (1.1-2.2) 08/16/17 Range/Units 18:00 WBC (4.3-11.1) K/mcL RBC (4.19-5.50) M/mcL Hgb (12.9-16.9) g/dL Hct (37.5-50.1) % MCV (83.0-100.0) fL MCH (28.0-33.3) pg MCHC (31.6-35.5) g/dL RDW (11.5-14.5) % Plt Count (140-400) K/mcL MPV (9.4-12.4) fL Immature Gran % (0-4) % Seg Neutrophils % % Lymphocytes % % Monocytes % % Eosinophils % % Basophils % % Neutrophils # (1.6-8.9) K/mcL Lymphocytes # (0.6-4.6) K/mcL Monocytes # (0.0-1.3) K/mcL Eosinophils # (0.0-0.6) K/mcL Basophils # (0.0-0.2) K/mcL Sodium (136-145) mEq/L Potassium (3.5-4.5) mEq/L Chloride (98-109) mEq/L Carbon Dioxide (19-29) mEq/L BUN (8-26) mg/dL Creatinine (0.72-1.25) mg/dL Est GFR ( Amer) (> 60) Est GFR (Non-Af Amer) (> 60) BUN/Creatinine Ratio (6-26) Glucose (70-99) mg/dL Calculated Osmolality (280-300) Lactic Acid (0.5-2.2) mmol/L Calcium (8.6-10.8) mg/dL Phosphorus (2.3-4.7) mg/dL Magnesium (1.6-2.6) mg/dL Total Bilirubin (0.2-1.2) mg/dL AST (5-34) Units/L ALT (0-55) Units/L Alkaline Phosphatase (38-126) Units/L Creatine Kinase (30-200) Units/L Troponin I 0.01 (0-0.03) ng/mL Serum Total Protein (6.0-8.3) g/dL Albumin (3.5-5.0) g/dL Globulin (2.4-3.5) g/dL Albumin/Globulin Ratio (1.1-2.2) - Radiology Data Radiology results reviewed: Yes I reviewed the patient's radiology results. - EKG Data EKG attestation: Yes I reviewed and interpreted this EKG. EKG results narrative: Sinus tach, rate 101, CT interval 165, QRS 88, QTC 382, normal axis, nonspecific T-wave changes, no acute ischemic changes S.Syd - Rosa Elena Situation: Demographics, MOA Background: Presenting Complaint, Relevant PMH, Meds, & Allergies Assessment: Vital Signs, Course and respsone to treatment, Exam Concerns, Patient/Family Expectation, Pertinant Lab Results, Outstanding Labs Recommendation: Barrier(s) to disposition, Recommendation based on pending studies, treatments, or consults S.B.AMelba Report Given to: Dr. Matt Cuba Repor Time: 18:48
--- NOTE | 2017-08-16 17:45 | Emergency Department Note ---
START Narrative - START START: I examined this patient and my medical decision-making was reviewed with the emergency medicine resident. I agree with the documented findings, disposition and treatment plan as described except to the extent set forth below. Patient seen with emergency medicine resident Dr. Rod Leavitt, Please see a copy of his note for details of the H&P, ED evaluation, management and disposition. I have independently evaluated the patient and confirmed appropriate portions of the history and physical exam. Briefly: A 71-year-old male by EMS for "generalized weakness. Patient was evaluated admitted for pneumonia and about a week ago but says that he actually feels worse more tired and fatigued. Patient getting repeat labs chest x-ray ED workup. Concerns about possible exclusion of PE as a diagnosis. D-dimer is pending. Disposition pending.
[2017-08-16 18:11] LABS: Basophils # 0.1 K/mcL (0.0-0.2); Basophils % 0.8 %; Eosinophils % 0.2 %; Hematocrit 37.4 % (37.5-50.1); Immature Granulocytes % 0.9 % (0-4); Lymphocytes # 1.5 K/mcL (0.6-4.6); Mean Corpuscular HGB Conc 30.5 g/dL (31.6-35.5); Mean Corpuscular Hemoglobin 26.6 pg (28.0-33.3); Mean Corpuscular Volume 87.2 fL (83.0-100.0); Mean Platelet Volume 10.2 fL (9.4-12.4); Monocytes # 0.7 K/mcL (0.0-1.3); Monocytes % 5.6 %; Neutrophils # 10.2 K/mcL (1.6-8.9); Platelet Count 342 K/mcL (140-400); Red Blood Count 4.29 M/mcL (4.19-5.50); Red Cell Distribution Width 18.9 % (11.5-14.5); Segmented Neutrophils % 80.5 %
[2017-08-16 18:12] LABS: Hemoglobin 11.4 g/dL (12.9-16.9)
[2017-08-16 18:28] LABS: Albumin 2.9 g/dL (3.5-5.0); Albumin/Globulin Ratio 0.6 (1.1-2.2); Bilirubin,Total 0.3 mg/dL (0.2-1.2); Calcium 9.8 mg/dL (8.6-10.8); Globulin 5.2 g/dL (2.4-3.5); Magnesium 1.4 mg/dL (1.6-2.6); Phosphorous 3.1 mg/dL (2.3-4.7); Potassium 4.6 mEq/L (3.5-4.5); Total Protein 8.1 g/dL (6.0-8.3)
[2017-08-16 18:47] LABS: Ionized Calcium 1.2 mmol/L (1.15-1.35)
[2017-08-16 18:56] LABS: Bilirubin,Urine Negative (Negative); Blood,Urine Moderate (Negative); Clarity,Urine Cloudy (Clear); Color,Urine Yellow (Yellow); Glucose,Urine (UA) Normal (Normal); Ketones,Urine Negative (Negative); Leukocyte Esterase,Urine Moderate (Negative); Nitrite,Urine Negative (Negative); Protein,Urine >=300 mg/dL (Neg-Trace); Specific Gravity,Urine 1.019 (1.010-1.025); Urobilinogen,Urine Normal (Normal)
[2017-08-16 19:00] LABS: RBC,Urine 30-50 per hpf (0-3); Squamous Epithelial Cell,Urine Many per lpf (None-Few); WBC,Urine TNTC per hpf (0-3)
--- NOTE | 2017-08-16 19:03 | Emergency Department Note ---
Disposition Clinical Impression: Pyelonephritis, acute, Generalized weakness Sepsis Qualifiers: Sepsis type: sepsis due to unspecified organism Qualified Code(s): A41.9 - Sepsis, unspecified organism Disposition: Admitted As Inpatient Condition: Undetermined Time of Disposition: 20:14 Weakness HPI - General Chief complaint: ED Weakness Stated complaint: Weakness Time Seen by Provider: 08/16/17 17:32 Source: patient, EMS Mode of arrival: EMS Limitations: no limitations Nursing Notes Reviewed: Yes Vital Signs Reviewed: Yes - History of Present Illness HPI Narrative: 71-year-old male that is a signout from the day team, arrives to [facility] emergency department with complaint of generalized weakness. The patient was recently discharged from [facility] for recent diagnosis of pneumonia where he was admitted for roughly 1 week. The patient states that roughly 1 week ago was when he was discharged. The patient states that he has not felt well since then. The patient denies any focalization of any complaints with the exception of cough and generalized weakness. The patient does admit to a small amount of dyspnea. He denies any urinary symptoms, nuchal rigidity. The patient does admit to drinking headache but he states this has been ongoing for the past week. The patient denies any other complaints at this time. He does appear very weak in the room. Upon signout the patient's lactic acidosis was elevated at 3.7. He was given 2 L of IV fluids per the day team. The patient's chest x-ray does appear to be stable but given the previous history of pneumonia I am concerned about possible disseminated organisms. We will begin the patient on vancomycin as well as Zosyn. The patient will be admitted to the hospitalist for sepsis concerns. On examination the patient does have a moderate amount of abdominal pain. The patient has a colostomy on his right side of his abdomen as well. The stools very liquidy but he says this is baseline for him. Pt Subjective Complaint: generalized weakness/fatigue Pain Scale: 0 Context: history of similar Associated symptoms: Reports: shortness of breath - Related Data Home Medications Medication Instructions Recorded Confirmed Atorvastatin [Lipitor] 40 mg PO HS 09/22/15 08/16/17 Ferrous Sulfate 325 mg PO BID 09/22/15 08/16/17 Furosemide [Lasix] 40 mg PO DAILY 09/22/15 08/16/17 Glimepiride [Amaryl] 4 mg PO QAM 09/22/15 08/16/17 Potassium Chloride 40 meq PO DAILY 09/22/15 08/16/17 Metoprolol [Lopressor] 12.5 mg PO BID 05/14/16 08/16/17 SitaGLIPtin [Januvia] 100 mg PO DAILY 05/14/16 08/16/17 Albuterol Sulfate [Proair Hfa] 2 puff IH Q4H PRN 06/07/16 08/16/17 Aspirin 81 mg PO DAILY 08/13/16 08/16/17 Diltiazem HCl [Diltiazem 24Hr Cd] 120 mg PO DAILY 03/19/17 08/16/17 Metformin HCl [Glucophage] 1,000 mg PO BID 06/13/17 08/16/17 Ranitidine HCl [Zantac] 150 mg PO BID PRN 07/08/17 08/16/17 Fluticasone/Salmeterol [Advair Hfa 2 puff IH BID 08/01/17 08/16/17 115-21 Mcg Inhaler] Previous Rx's Medication Instructions Recorded Folic Acid 1 mg PO DAILY #30 tablet 11/01/15 Docusate Sodium [Colace] 100 mg PO BID #60 06/26/17 Ascorbic Acid [Vitamin C] 500 mg PO BID #30 tablet 08/09/17 GuaiFENesin ER [Mucinex] 600 mg PO BID #30 tbbp.12hr 08/09/17 Lactobacillus [Culturelle] 1 each PO DAILY #14 cap.sprink 08/09/17 Sodium Bicarbonate 650 mg PO TID #180 tablet 08/09/17 Warfarin [Coumadin] 2 mg PO 1800 #7 tablet 08/09/17 Zinc Sulfate 220 mg PO DAILY #3 capsule 08/09/17 Allergies Allergy/AdvReac Type Severity Reaction Status Date / Time No Known Allergies Allergy Verified 07/08/17 10:24 All systems ED: reviewed and negative except as stated. Constitutional: Reports: weakness. Denies: fever Eyes: Denies: vision change Cardiovascular: Denies: chest pain Respiratory: Reports: cough, dyspnea Gastrointestinal: Reports: abdominal pain. Denies: vomiting Genitourinary: Reports: as per HPI Musculoskeletal: Denies: back pain Neurological: Reports: headache, weakness. Denies: numbness, paresthesias, confusion Endocrine: Reports: fatigue Past Medical History - Past Medical History Attestation: Yes The following information was validated with the patient. Source: patient, old records reviewed Medical history: Reports: asthma, atrial fibrillation, cancer, DVT, diabetes, hyperlipidemia, hypertension, other Surgical history: Reports: carotid endarterectomy, cholecystectomy, colectomy, colostomy (Sounds as though this was done as a diverting colostomy due to his prostate cancer and radiation.), prostatectomy, other Psychiatric history: Reports: no psych history - Social History Smoking Status: Former smoker Smokeless Tobacco Status: No Alcohol use: Reports: none Drug use: Reports: none Physical Exam - General Limitations: no limitations General appearance: alert, in no apparent distress, obese, other (appears ill but non toxic ) - Head Head exam: atraumatic, normocephalic, normal inspection - Neck Neck exam: Present: normal inspection, full ROM, trachea midline - Chest Chest inspection: Present: normal inspection, symmetric chest wall rise - Respiratory Respiratory exam: Present: other (Worse breath sounds bilaterally) - Cardiovascular Cardiovascular exam: Present: normal rhythm, tachycardia, normal heart sounds - Abdominal Exam Abdominal exam: Present: soft, tenderness (Generalized), other (Colostomy). Absent: distention, guarding, rebound, Thomas's sign, Rovsing's sign, tenderness at McBurney's Point - Extremities Exam Extremities exam: Present: normal inspection, full ROM. Absent: tenderness, pedal edema - Neurological Exam Neurological exam: Present: alert, oriented X3 - Skin Skin exam: Present: warm, dry, intact, normal color Course Vital Signs Temperature 98.0 F 08/16/17 17:33 Pulse Rate 103 08/16/17 17:33 Respiratory Rate 20 08/16/17 17:33 Blood Pressure 125/92 08/16/17 17:33 O2 Sat by Pulse Oximetry 97 08/16/17 17:33 Temperature 98.0 F 08/16/17 17:33 Pulse Rate 92 08/16/17 19:11 Respiratory Rate 16 08/16/17 19:11 Blood Pressure 128/90 08/16/17 19:11 O2 Sat by Pulse Oximetry 96 08/16/17 19:11 Oxygen Delivery Oxygen Delivery Room Air Weakness - [facility] Narrative Medical decision making narrative: Patient noted to have a lactic acidosis of 3.7. He was administered 2 L of IV fluids. The patient was also started on vancomycin and Zosyn. Abdominal CT with concern for abdominal pain revealed a perinephric fat stranding on the right side and concern for pyelonephritis. Patient's urinalysis demonstrates possible urinary tract infection but given the patient's pyelonephritis noted on his CT scan combined with urinary findings, we will go ahead and treat the patient for urosepsis. The patient was begun on vancomycin and Zosyn prior to results. His chest x-ray demonstrates stable findings. Patient's stool is unchanged from previous episodes on his colostomy bag. Patient denies any nuchal rigidity and states his headache is better at this time. We will admit the patient to the hospitalist at this time. Accepted by Dr. Vieyra. - Medical Records Medical records reviewed: Yes I reviewed the patient's medical records. - Lab Data Lab results reviewed: Yes I reviewed the patient's lab results. Result diagrams: 08/16/17 18:00 08/16/17 18:00 Lab Results 08/16/17 08/16/17 08/16/17 Range/Units 18:00 18:00 18:00 WBC 12.7 H D (4.3-11.1) K/mcL RBC 4.29 (4.19-5.50) M/mcL Hgb 11.4 L D (12.9-16.9) g/dL Hct 37.4 L (37.5-50.1) % MCV 87.2 (83.0-100.0) fL MCH 26.6 L (28.0-33.3) pg MCHC 30.5 L (31.6-35.5) g/dL RDW 18.9 H (11.5-14.5) % Plt Count 342 (140-400) K/mcL MPV 10.2 (9.4-12.4) fL Immature Gran % 0.9 (0-4) % Seg Neutrophils % 80.5 % Lymphocytes % 12.0 % Monocytes % 5.6 % Eosinophils % 0.2 % Basophils % 0.8 % Neutrophils # 10.2 H (1.6-8.9) K/mcL Lymphocytes # 1.5 (0.6-4.6) K/mcL Monocytes # 0.7 (0.0-1.3) K/mcL Eosinophils # 0.0 (0.0-0.6) K/mcL Basophils # 0.1 (0.0-0.2) K/mcL Sodium 135 L (136-145) mEq/L Potassium 4.6 H (3.5-4.5) mEq/L Chloride 105 (98-109) mEq/L Carbon Dioxide 14 L (19-29) mEq/L BUN 36 H (8-26) mg/dL Creatinine 1.87 H (0.72-1.25) mg/dL Est GFR ( Amer) 44 L (> 60) Est GFR (Non-Af Amer) 36 L (> 60) BUN/Creatinine Ratio 19 (6-26) Glucose 189 H (70-99) mg/dL Calculated Osmolality 293 (280-300) Lactic Acid 3.7 H (0.5-2.2) mmol/L Calcium 9.8 (8.6-10.8) mg/dL Ionized Calcium 1.20 (1.15-1.35) mmol/L Phosphorus 3.1 (2.3-4.7) mg/dL Magnesium 1.4 L (1.6-2.6) mg/dL Total Bilirubin 0.3 (0.2-1.2) mg/dL AST 33 (5-34) Units/L ALT 39 (0-55) Units/L Alkaline Phosphatase 149 H (38-126) Units/L Creatine Kinase 17 L (30-200) Units/L Troponin I (0-0.03) ng/mL Serum Total Protein 8.1 (6.0-8.3) g/dL Albumin 2.9 L (3.5-5.0) g/dL Globulin 5.2 H (2.4-3.5) g/dL Albumin/Globulin Ratio 0.6 L (1.1-2.2) Urine Color (Yellow) Urine Clarity (Clear) Urine pH (5.0-8.0) pH Units Ur Specific [place] (1.010-1.025) Urine Protein (Neg-Trace) mg/dL Urine Glucose (UA) (Normal) mg/dL Urine Ketones (Negative) mg/dL Urine Blood (Negative) Urine Nitrite (Negative) Urine Bilirubin (Negative) Urine Urobilinogen (Normal) mg/dL Ur Leukocyte Esterase (Negative) Urine Microscopic RBC (0-3) per hpf Urine Microscopic WBC (0-3) per hpf Ur Squamous Epith Cells (None-Few) per lpf Urine Bacteria (None-Few) per hpf Hyaline Casts (None-Few) per lpf Ur Culture Indicated? (NO) 08/16/17 08/16/17 Range/Units 18:00 18:45 WBC (4.3-11.1) K/mcL RBC (4.19-5.50) M/mcL Hgb (12.9-16.9) g/dL Hct (37.5-50.1) % MCV (83.0-100.0) fL MCH (28.0-33.3) pg MCHC (31.6-35.5) g/dL RDW (11.5-14.5) % Plt Count (140-400) K/mcL MPV (9.4-12.4) fL Immature Gran % (0-4) % Seg Neutrophils % % Lymphocytes % % Monocytes % % Eosinophils % % Basophils % % Neutrophils # (1.6-8.9) K/mcL Lymphocytes # (0.6-4.6) K/mcL Monocytes # (0.0-1.3) K/mcL Eosinophils # (0.0-0.6) K/mcL Basophils # (0.0-0.2) K/mcL Sodium (136-145) mEq/L Potassium (3.5-4.5) mEq/L Chloride (98-109) mEq/L Carbon Dioxide (19-29) mEq/L BUN (8-26) mg/dL Creatinine (0.72-1.25) mg/dL Est GFR ( Amer) (> 60) Est GFR (Non-Af Amer) (> 60) BUN/Creatinine Ratio (6-26) Glucose (70-99) mg/dL Calculated Osmolality (280-300) Lactic Acid (0.5-2.2) mmol/L Calcium (8.6-10.8) mg/dL Ionized Calcium (1.15-1.35) mmol/L Phosphorus (2.3-4.7) mg/dL Magnesium (1.6-2.6) mg/dL Total Bilirubin (0.2-1.2) mg/dL AST (5-34) Units/L ALT (0-55) Units/L Alkaline Phosphatase (38-126) Units/L Creatine Kinase (30-200) Units/L Troponin I 0.01 (0-0.03) ng/mL Serum Total Protein (6.0-8.3) g/dL Albumin (3.5-5.0) g/dL Globulin (2.4-3.5) g/dL Albumin/Globulin Ratio (1.1-2.2) Urine Color Yellow (Yellow) Urine Clarity Cloudy A (Clear) Urine pH 6.0 (5.0-8.0) pH Units Ur Specific [place] 1.019 (1.010-1.025) Urine Protein >=300 H (Neg-Trace) mg/dL Urine Glucose (UA) Normal (Normal) mg/dL Urine Ketones Negative (Negative) mg/dL Urine Blood Moderate H (Negative) Urine Nitrite Negative (Negative) Urine Bilirubin Negative (Negative) Urine Urobilinogen Normal (Normal) mg/dL Ur Leukocyte Esterase Moderate H (Negative) Urine Microscopic RBC 30-50 H (0-3) per hpf Urine Microscopic WBC TNTC H (0-3) per hpf Ur Squamous Epith Cells Many H (None-Few) per lpf Urine Bacteria Few (None-Few) per hpf Hyaline Casts Few (None-Few) per lpf Ur Culture Indicated? YES A (NO) - Radiology Data Radiology results reviewed: Yes I reviewed the patient's radiology results. Attestation Statement - Attestation Attestation: I, Yaron Owusu MD, personally evaluated this patient and discussed their management with the resident physician. I reviewed the resident's note and agree with the documented findings, medical decision making, and plan of care. This patient was signed out at shift change from Dr. Leavitt and Dr. King. Please refer to their notes for complete details of the history and physical examination. At shift change patient is awaiting test results and disposition. Plan is admission for sepsis. The patient presented with generalized weakness for 3 days prior to arrival. He denies fever. Patient has a colostomy and chronic indwelling Graves catheter secondary to prostate cancer. On examination patient is a well-developed obese elderly male in no acute distress. He is alert and oriented 3. There is no cyanosis or diaphoresis. Breath sounds are clear and equal bilaterally. Heart regular rate and rhythm. Abdomen is soft with normal bowel sounds. Mild diffuse tenderness. Labs reviewed. Chest x-ray shows no definite acute abnormality. Head CT shows no acute intracranial abnormality. CT of the abdomen and pelvis suggests pyelonephritis. The hospitalist, Dr. Vieyra, was consulted and accepted admission of the patient.
[2017-08-16 19:14] LABS: Hyaline Casts,Urine Few per lpf (None-Few)
[2017-08-16 19:15] LABS: Bacteria,Urine Few per hpf (None-Few)
[2017-08-16] MEDS ORDERED: Vancomycin 1,000 MG in D5% in Water 250 ML IVPB ONE (19:58)
[2017-08-16] MEDS ORDERED: Piperacillin/Tazobactam 3.375 GM in D5% in Water (Mini-Bag+) 100 ML IVPB ONE (19:58)
--- NOTE | 2017-08-16 21:23 | Internal Med History&Physical ---
<Jay Tipton - Last Filed: 08/17/17 00:05> Date of Encounter: 08/17/17 Time of Encounter: 21:23 Assessment and Plan (1) Severe sepsis Current visit: Yes Status: Acute 2 SIRS criteria: WBC 12.7, HR 103, and pyelonephritis/ UTI as source of infection Lactic acid 3.7 --> 1.9 Patient was discharged 7 days ago after 6 day hospitalization for community acquired pneumonia and was found to have bilateral mild to moderate hydronephrosis and discharged with indwelling marrufo catheter. Abdominal CT revealed right sided perinephric fat stranding concerning for pyelonephritis Blood, urine, and wound cultures pending Continue empiric Vanc and Zosyn. (2) Pyelonephritis, acute Current visit: Yes Status: Acute CT abd/plv reveals dilation of the right renal collecting system which may be mildly increased when compared to the previous exam, with urothelial thickening and perinephric fat stranding. Pyelonephritis/pyelitis is considered. UA reveals TNTC WBC, moderate leukocyte estrase Urine culture pending On recent admission patient was found to have bilateral mild to moderate hydronephrosis and discharged with indwelling marrufo catheter. New marrufo placed today Continue IVF and antibiotics Patient scheduled to see Urology as outpatient on 08/20/17 (3) EUGENIO (acute kidney injury) Current visit: No Status: Acute Cr 1,87, baseline 1.16 Cautious IVF hydration given h/o CHF (4) Atrial fibrillation Current visit: No Status: Chronic Recent admission with A-fib RVR Patient started on Coumadin Continue to monitor Qualifiers: Atrial fibrillation type: paroxysmal Qualified Code(s): I48.0 - Paroxysmal atrial fibrillation (5) Hypertension Current visit: No Status: Chronic Continue home meds Qualifiers: Hypertension type: essential hypertension Qualified Code(s): I10 - Essential (primary) hypertension (6) HLD (hyperlipidemia) Current visit: Yes Status: Acute Continue home meds Qualifiers: Hyperlipidemia type: unspecified Qualified Code(s): E78.5 - Hyperlipidemia , unspecified (7) DM type 2 (diabetes mellitus, type 2) Current visit: No Status: Chronic HGB a1c 6.5 on 08/01/17 Continue basal, prandial, and medium dose SSI Continue to monitor Qualifiers: Diabetes mellitus complication status: without complication Diabetes mellitus buttermaker helper insulin use: without fdc use Qualified Code(s): E11.9 - Type 2 diabetes mellitus without complications (8) Nonhealing surgical wound Current visit: No Status: Acute Wound at ostomy site and stage 2 sacral decubitus ulcer Wound culture pending given severe sepsis Turn patient q2h Wound care consulted Qualifiers: Encounter type: subsequent encounter Qualified Code(s): T81.89XD - Other complications of procedures, not elsewhere classified, subsequent encounter (9) S/P colostomy Current visit: No Status: Chronic 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 This is nonspecific, but given patient' s history, metastatic disease must be considered. Further evaluation with PET- CT should be considered. (10) Prostate cancer Current visit: Yes Status: Chronic Prostate cancer currently not receiving treatment CT abd/plv reveals there is continued marked mural thickening of the urinary bladder, with marked presacral fat stranding, but that appears similar when compared to the previous exam. Hyperdense material within the urinary bladder is detected. These are probably postsurgical and postradiation changes, but an infectious or inflammatory process in the pelvis remains a consideration. (11) Chronic diastolic CHF (congestive heart failure) Current visit: No Status: Acute Not in acute exacerbation Cautious IVF hydration given h/o CHF 1,500 fluid restriction (12) COPD (chronic obstructive pulmonary disease) Current visit: No Status: Chronic COPD on 2 L of oxygen home Not in acute exacerbation Continue Duonebs and home meds Qualifiers: COPD type: unspecified COPD Qualified Code(s): J44.9 - Chronic obstructive pulmonary disease, unspecified (13) Hypomagnesemia Current visit: Yes Status: Acute Mag 1.4 Supplement Mag Continue to monitor (14) Hyperkalemia Current visit: Yes Status: Acute Hold home potassium Continue to monitor (15) DVT prophylaxis Current visit: No Status: Acute Continue Warfarin Internal Medicine - H&P: HPI Chief complaint: Weakness Admitted From: Home History of present illness: Mr. 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 Of note, patient was discharged 7 days ago after 6 day hospitalization for community acquired pneumonia and was found to have bilateral mild to moderate hydronephrosis. In the ED, work up revealed lactic acid 3.7, Abdominal CT revealed right sided perinephric fat stranding concerning for pyelonephritis, and patient was started on empiric Vanc and Zosyn. Past Med Surg Social Fam HX - Past Medical History Medical history: asthma, atrial fibrillation, cancer, DVT, diabetes, hyperlipidemia, hypertension, other Psychiatric history: no psych history - Past Surgical History Surgical History: carotid endarterectomy, cholecystectomy, colectomy, colostomy (Sounds as though this was done as a diverting colostomy due to his prostate cancer and radiation.), prostatectomy, other - Social History Smoking Status: Former smoker Smokeless Tobacco Status: No Alcohol use: none Drug use: none - Family History Father Adopted: No Living Status: Hx Family Cardiac Disorders: Yes Hx Family Respiratory Disorders: No Hx Family Cancer: No Hx Family GI Disorders: No Hx Family Endocrine Disorder: No Hx Family Neuromuscular Disorders: No Hx Family Neurologic Disorders: No Hx Family HEENT Disorders: No Hx Family Autoimmune Disorders: No Internal Medicine - H&P: Meds Atorvastatin [Lipitor] 40 mg PO HS 09/22/15 [History] Ferrous Sulfate 325 mg PO BID 09/22/15 [History] Furosemide [Lasix] 40 mg PO DAILY 09/22/15 [History] Glimepiride [Amaryl] 4 mg PO QAM 09/22/15 [History] Potassium Chloride 40 meq PO DAILY 09/22/15 [History] Folic Acid 1 mg PO DAILY #30 tablet 11/01/15 [Rx] Metoprolol [Lopressor] 12.5 mg PO BID 05/14/16 [History] SitaGLIPtin [Januvia] 100 mg PO DAILY 05/14/16 [History] Albuterol Sulfate [Proair Hfa] 2 puff IH Q4H PRN 06/07/16 [History] Aspirin 81 mg PO DAILY 08/13/16 [History] Diltiazem HCl [Diltiazem 24Hr Cd] 120 mg PO DAILY 03/19/17 [History] Metformin HCl [Glucophage] 1,000 mg PO BID 06/13/17 [History] Docusate Sodium [Colace] 100 mg PO BID #60 06/26/17 [Rx] Ranitidine HCl [Zantac] 150 mg PO BID PRN 07/08/17 [History] Fluticasone/Salmeterol [Advair Hfa 115-21 Mcg Inhaler] 2 puff IH BID 08/01/17 [ History] Ascorbic Acid [Vitamin C] 500 mg PO BID #30 tablet 08/09/17 [Rx] GuaiFENesin ER [Mucinex] 600 mg PO BID #30 tbbp.12hr 08/09/17 [Rx] Lactobacillus [Culturelle] 1 each PO DAILY #14 cap.sprink 08/09/17 [Rx] Sodium Bicarbonate 650 mg PO TID #180 tablet 08/09/17 [Rx] Warfarin [Coumadin] 2 mg PO 1800 #7 tablet 08/09/17 [Rx] Zinc Sulfate 220 mg PO DAILY #3 capsule 08/09/17 [Rx] 3 Allergy/AdvReac Type Severity Reaction Status Date / Time No Known Allergies Allergy Verified 07/08/17 10:24 All Systems PM: A 10-system review of systems was performed and is negative for pertinent findings except as documented above in the HPI. - Constitutional Constitutional: fatigue, lethargy, weakness, no chills, no fever(s) - EENT Eyes: no change in vision Nose, mouth and throat: no nasal congestion, no sinus pressure - Cardiovascular Cardiovascular ROS IM: dyspnea, no chest pain, no palpitations - Respiratory Respiratory: cough, dyspnea, no chest congestion - Gastrointestinal Gastrointestinal: no abdominal pain, no diarrhea, no nausea, no vomiting - Genitourinary Additional comments: Marrufo in place - Musculoskeletal Musculoskeletal ROS IM: deformity, no back pain, no muscle weakness, no numbness , no tingling Additional comments: right finger contractures - Integumentary Integumentary IM: new lesions, non-healing lesions, skin ulcer - Neurological Neurological ROS: headache(s), weakness, no confusion, no numbness - Psychiatric Psychiatric: no anxiety, no depression - Endocrine Endocrine IM: no polydipsia, no polyphagia, no polyuria - Constitutional Vitals: Temp Pulse Resp BP Pulse Ox 98.0 F 92 18 146/81 96 08/16/17 17:33 08/16/17 19:11 08/16/17 20:58 08/16/17 20:58 08/16/17 19:11 General appearance: Present: cooperative, mild distress, A&O X 3, pleasant, answers questions appropriately - Head Head exam: Present: atraumatic, normal inspection, normocephalic - Eye Eye exam: Present: EOMI, PERRL - ENT ENT exam: Present: mucous membranes moist, normal oropharynx - Neck Neck exam general surgery: Present: normal inspection, supple. Absent: nuchal rigidity - Respiratory Respiratory exam: Present: decreased breath sounds. Absent: accessory muscle use, respiratory distress - Cardiovascular Cardiovascular exam: Present: +S1, +S2, systolic murmur, tachycardia - GI/Abdominal GI/Abdominal exam: Present: normal bowel sounds, soft. Absent: distended, guarding, tenderness Additional comments: right sided colostomy - Additional comments: marrufo - Extremities Exam Extremities exam: Present: pedal edema (LLE), warm, radial pulses palpable and symmetrical. Absent: calf tenderness, tenderness - Incison Incision: Present: red, open (small 1/2 cm opening/ non healing woung midline abd near ostomy), approximated - Neurological Exam Neurological exam: Present: alert, oriented X3, no focal deficits. Absent: altered, facial droop, speech deficit - Psychiatric Psychiatric exam: Present: normal affect, normal mood - Skin Skin exam: Present: erythema (stage 2 sacral deubituc ulcer, erythema , mild purulent drainage), warm Internal Med - H&P Results - Labs CBC & Chem 7: 08/16/17 22:24 08/16/17 18:00 <Juno Porras - Last Filed: 08/17/17 00:52> Date of Encounter: 08/17/17 Internal Medicine - H&P: HPI History of present illness: Mr. Mccain is a 71 year old male All Systems PM: A 10-system review of systems was performed and is negative for pertinent findings except as documented above in the HPI. - Constitutional Vitals: Temp Pulse Resp BP Pulse Ox 97.7 F 96 18 148/86 98 08/16/17 21:36 08/16/17 21:36 08/16/17 21:36 08/16/17 21:36 08/16/17 21:36 Internal Med - H&P Results - Labs CBC & Chem 7: 08/16/17 22:24 08/16/17 18:00 Labs: Short CBC 08/16/17 Range/Units 22:24 WBC 10.8 (4.3-11.1) K/mcL Hgb 10.3 L (12.9-16.9) g/dL Hct 33.0 L (37.5-50.1) % Plt Count 263 (140-400) K/mcL Neutrophils # 8.2 (1.6-8.9) K/mcL - Attending Attestation I examined this patient and my medical decision-making was reviewed with the Resident Physician. I agree with the documented findings, disposition and treatment plan as described except to the extent set forth below. Patient is a 71-year-old male with past medical history of A. fib, type 2 diabetes, history of DVT, hypertension, hyperlipidemia and oxygen-dependent COPD. Patient does have a history of carotid endarterectomy and a colectomy with status post colostomy. He presents to the ED with complaints of generalized weakness. He does have an indwelling Marrufo catheter, and he is scheduled to follow up with urology for voiding trial. He was found to have A. fib recently and has been started on Coumadin recently. CT of the abdomen and pelvis done today revealed perinephric fat stranding concerning for pyelonephritis and pyelitis. There is also interval enlargement of the lymph node within the lower mediastinum adjacent to the esophagus. Patient is being admitted for sepsis secondary to UTI and pyelonephritis. IV antibiotics will be continued. Patient will also be on his regular medications. Heart rate 96, blood pressure 148/86, O2 sat 98%. Heart S1-S2 positive. Lungs bilateral good air entry no wheeze or crackles. Abdomen soft nontender.
[2017-08-16] MEDS ORDERED: Naloxone 0.4 MG/ML INJ IVP PRN (21:49)
[2017-08-16] MEDS ORDERED: Ondansetron 4 MG/2 ML VIAL IVP PRN (21:49)
[2017-08-16] MEDS ORDERED: Magnesium Sulfate 2 GM in D5% in Water 100 ML IVPB ONE (21:53)
[2017-08-16] MEDS ORDERED: D5% in Water 1,000 ML IVC PRN (21:54)
[2017-08-16] MEDS ORDERED: *HR* Dextrose 50 % in Water (Syg) 50 ML SYRINGE IVP PRN (21:54)
[2017-08-16] MEDS ORDERED: Dextrose Gel 15 GM PO PRN ×2 (21:54)
[2017-08-16] MEDS ORDERED: Famotidine 20 MG TABLET PO PRN (21:57)
[2017-08-16] MEDS ORDERED: 0.9 % Sodium Chloride 1,000 ML IVC SCH (22:00)
[2017-08-16] MEDS ORDERED: Vancomycin (wt based) 1,000 MG VIAL IVPB SCH (22:00)
[2017-08-16 22:52] LABS: Basophils # 0.1 K/mcL (0.0-0.2); Basophils % 0.9 %; Eosinophils % 0.3 %; Hemoglobin 10.3 g/dL (12.9-16.9); Immature Granulocytes % 0.8 % (0-4); Lymphocytes # 1.6 K/mcL (0.6-4.6); Lymphocytes % 15.1 %; Mean Corpuscular HGB Conc 31.2 g/dL (31.6-35.5); Mean Corpuscular Hemoglobin 27.4 pg (28.0-33.3); Mean Corpuscular Volume 87.8 fL (83.0-100.0); Mean Platelet Volume 10.3 fL (9.4-12.4); Monocytes # 0.7 K/mcL (0.0-1.3); Monocytes % 6.5 %; Neutrophils # 8.2 K/mcL (1.6-8.9); Platelet Count 263 K/mcL (140-400); Red Blood Count 3.76 M/mcL (4.19-5.50); Red Cell Distribution Width 18.8 % (11.5-14.5); Segmented Neutrophils % 76.4 %
[2017-08-16] MEDS: Vancomycin 1,250 MG in D5% in Water 250 ML IVPB SCH (23:16)
[2017-08-16] MEDS: Insulin DETEMIR 100 UNIT/ML X5UNITS SQ SCH (23:37)
[2017-08-16] MEDS: Insulin LISPRO 300 UNITS/3 ML VIAL SQ SCH (23:38)
[2017-08-16] MEDS: Ipratropium/Albuterol Neb 3 ML IH SCH (23:40)
[2017-08-17] MEDS: Ipratropium/Albuterol Neb 3 ML IH SCH ×6 (03:15→23:37)
[2017-08-17 04:29] LABS: Albumin 2.4 g/dL (3.5-5.0); Albumin/Globulin Ratio 0.6 (1.1-2.2); Bilirubin,Total 0.2 mg/dL (0.2-1.2); Calcium 8.6 mg/dL (8.6-10.8); Globulin 4.1 g/dL (2.4-3.5); Magnesium 1.9 mg/dL (1.6-2.6); Total Protein 6.5 g/dL (6.0-8.3)
[2017-08-17 04:30] LABS: Potassium 3.5 mEq/L (3.5-4.5)
[2017-08-17 04:33] LABS: INR 1.6; Prothrombin Time 17.8 Seconds (9.4-12.1)
[2017-08-17 04:36] LABS: Activated Partial Thrombo Time 44.2 Seconds (26.0-36.0)
[2017-08-17] MEDS: Piperacillin/Tazobactam 3.375 GM in D5% in Water (Mini-Bag+) 100 ML IVPB SCH ×3 (04:41→19:51)
[2017-08-17] MEDS: Famotidine 20 MG/2 ML VIAL IVP SCH ×2 (05:00→16:24)
[2017-08-17] MEDS: Budesonide/Formoterol 80/4.5 MDI IH SCH ×2 (07:25→19:50)
[2017-08-17] MEDS: Insulin LISPRO 300 UNITS/3 ML VIAL SQ SCH ×7 (08:59→21:51)
[2017-08-17] MEDS: Folic Acid 1 MG TABLET PO SCH (09:01)
[2017-08-17] MEDS: Furosemide 40 MG TABLET PO SCH (09:01)
[2017-08-17] MEDS: Zinc Sulfate 220 MG CAPSULE PO SCH (09:01)
[2017-08-17] MEDS: Lactobacillus 1 EACH CAP.SPRINK PO SCH (09:01)
[2017-08-17] MEDS: Ascorbic Acid 500 MG TABLET PO SCH ×2 (09:02→19:53)
[2017-08-17] MEDS: Diltiazem CD (24hr) 120 MG CAPSULE PO SCH (09:02)
[2017-08-17] MEDS: Aspirin 81 MG TAB.CHEW PO SCH (09:08)
--- NOTE | 2017-08-17 09:32 | Internal Med Progress Note ---
Date of Encounter: 08/17/17 Time of Encounter: 09:28 - Assessment and plan (1) Sepsis Current Visit: Yes Status: Acute Qualifiers: Sepsis type: sepsis due to unspecified organism Qualified Code(s): A41.9 - Sepsis, unspecified organism (2) Pyelonephritis, acute Current Visit: Yes Status: Acute (3) EUGENIO (acute kidney injury) Current Visit: Yes Status: Acute (4) Nonhealing surgical wound Current Visit: Yes Status: Acute Qualifiers: Encounter type: subsequent encounter Qualified Code(s): T81.89XD - Other complications of procedures, not elsewhere classified, subsequent encounter (5) Hypomagnesemia Current Visit: Yes Status: Acute (6) Hyperkalemia Current Visit: Yes Status: Acute (7) Diabetes mellitus Current Visit: Yes Status: Chronic Qualifiers: Diabetes mellitus type: type 2 Diabetes mellitus complication status: with unspecified complications Diabetes mellitus ferry terminal supervisor insulin use: without half-way use Qualified Code(s): E11.8 - Type 2 diabetes mellitus with unspecified complications (8) Hypertension Current Visit: Yes Status: Chronic Qualifiers: Hypertension type: essential hypertension Qualified Code(s): I10 - Essential (primary) hypertension (9) Colostomy and enterostomy complications Current Visit: Yes Status: Acute (10) Decubitus ulcer of coccygeal region, stage 3 Current Visit: No Status: Acute (11) Atrial fibrillation Current Visit: Yes Status: Chronic Qualifiers: Atrial fibrillation type: paroxysmal Qualified Code(s): I48.0 - Paroxysmal atrial fibrillation (12) Colon cancer Current Visit: Yes Status: Inactive Qualifiers: Colon location: unspecified part of colon Qualified Code(s): C18.9 - Malignant neoplasm of colon, unspecified - Subjective Interval history: History: Mr. 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 Patient seen today. His history is well awake and alert and does not seem in any distress. I think with IV hydration and to IV antibiotic his sensorium has pressed toward. Continue current treatment and follow the labs. CBC CMP ordered. #1 sepsis #2 UTI #3 EUGENIO #4 recent pneumonia/COPD #5 chronic stage II decubitus ulcer/non-healing ostomy ulcer/status post [place] secondary to colon cancer #6 chronic atrial fibrillation #7 diabetes /hypertension /dyslipidemia #8 history of prostate cancer colon cancer and CHF - Constitutional Vitals: Temp Pulse Resp BP Pulse Ox 97.6 F 78 15 117/75 95 08/17/17 06:59 08/17/17 06:59 08/17/17 06:59 08/17/17 06:59 08/17/17 06:59 General appearance: Present: cooperative, A&O X 3, pleasant, no acute distress, answers questions appropriately - Head Head exam: Present: atraumatic, normocephalic - Eye Eye exam: Present: PERRL, conjuntiva pink, sclera anicteric Pupils: Present: PERRL - Neck Neck exam general surgery: Present: supple, trachea midline. Absent: lymphadenopathy - Respiratory Respiratory exam: Present: CTAB. Absent: accessory muscle use, rales, rhonchi, wheezes - Cardiovascular Cardiovascular exam: Present: RRR, +S1, +S2. Absent: diastolic murmur, gallop, rubs, systolic murmur - GI/Abdominal GI/Abdominal exam: Present: normal bowel sounds, soft, no peritoneal signs. Absent: distended, tenderness - Extremities Exam Extremities exam: Present: warm, radial pulses palpable and symmetrical. Absent : calf tenderness, cyanotic, pedal edema - Neurological Exam Neurological exam: Present: CN II-XII intact, oriented X3, no focal deficits. Absent: pronater drift, facial droop, speech deficit - Skin Skin exam: Present: dry, intact Internal Medicine: Result - Labs CBC & Chem 7: 08/16/17 22:24 08/17/17 04:03 Labs: Short CBC 08/16/17 Range/Units 22:24 WBC 10.8 (4.3-11.1) K/mcL Hgb 10.3 L (12.9-16.9) g/dL Hct 33.0 L (37.5-50.1) % Plt Count 263 (140-400) K/mcL Neutrophils # 8.2 (1.6-8.9) K/mcL BMP 08/17/17 04:03 Sodium 135 L Potassium 3.5 D Chloride 108 Carbon Dioxide 17 L BUN 31 H Creatinine 1.47 H Glucose 79 Calcium 8.6 Liver Function 08/17/17 Range/Units 04:03 Total Bilirubin 0.2 (0.2-1.2) mg/dL AST 27 (5-34) Units/L ALT 31 (0-55) Units/L Alkaline Phosphatase 118 (38-126) Units/L Albumin 2.4 L (3.5-5.0) g/dL - ABG Interpretation ABG results: PT/INR, D-dimer PT 17.8 Seconds (9.4-12.1) H 08/17/17 04:03 Consult Discharge Plan - Plan Referrals: Guillermo Garibay MD [Primary Care Provider] -
[2017-08-17] MEDS: *HR* Warfarin 2 MG TABLET PO SCH ×2 (16:23→17:12)
[2017-08-17] MEDS: Vancomycin 1,250 MG in D5% in Water 250 ML IVPB SCH (21:52)
[2017-08-17] MEDS: Insulin DETEMIR 100 UNIT/ML X5UNITS SQ SCH (21:53)
[2017-08-18] MEDS: Ipratropium/Albuterol Neb 3 ML IH SCH ×2 (03:38→08:47)
[2017-08-18] MEDS: Piperacillin/Tazobactam 3.375 GM in D5% in Water (Mini-Bag+) 100 ML IVPB SCH ×3 (03:59→20:00)
[2017-08-18] MEDS: Famotidine 20 MG/2 ML VIAL IVP SCH ×2 (06:13→17:04)
[2017-08-18] MEDS: Lactobacillus 1 EACH CAP.SPRINK PO SCH (08:00)
[2017-08-18] MEDS: Ascorbic Acid 500 MG TABLET PO SCH ×2 (08:00→20:01)
[2017-08-18] MEDS: Furosemide 40 MG TABLET PO SCH (08:00)
[2017-08-18] MEDS: Folic Acid 1 MG TABLET PO SCH (08:00)
[2017-08-18] MEDS: Zinc Sulfate 220 MG CAPSULE PO SCH (08:01)
[2017-08-18] MEDS: Aspirin 81 MG TAB.CHEW PO SCH (08:02)
[2017-08-18] MEDS: Diltiazem CD (24hr) 120 MG CAPSULE PO SCH (08:02)
[2017-08-18] MEDS: Insulin LISPRO 300 UNITS/3 ML VIAL SQ SCH ×7 (08:02→20:13)
[2017-08-18] MEDS ORDERED: Ipratropium/Albuterol Neb 3 ML IH PRN (08:47)
--- NOTE | 2017-08-18 17:01 | Internal Med Progress Note ---
Date of Encounter: 08/18/17 Time of Encounter: 17:00 - Assessment and plan (1) Sepsis Current Visit: Yes Status: Acute Qualifiers: Sepsis type: sepsis due to unspecified organism Qualified Code(s): A41.9 - Sepsis, unspecified organism (2) Pyelonephritis, acute Current Visit: Yes Status: Acute (3) EUGENIO (acute kidney injury) Current Visit: Yes Status: Acute (4) Nonhealing surgical wound Current Visit: Yes Status: Acute Qualifiers: Encounter type: subsequent encounter Qualified Code(s): T81.89XD - Other complications of procedures, not elsewhere classified, subsequent encounter (5) Hypomagnesemia Current Visit: Yes Status: Acute (6) Hyperkalemia Current Visit: Yes Status: Acute (7) Diabetes mellitus Current Visit: Yes Status: Chronic Qualifiers: Diabetes mellitus type: type 2 Diabetes mellitus complication status: with unspecified complications Diabetes mellitus roasterman insulin use: without penitentiary use Qualified Code(s): E11.8 - Type 2 diabetes mellitus with unspecified complications (8) Hypertension Current Visit: Yes Status: Chronic Qualifiers: Hypertension type: essential hypertension Qualified Code(s): I10 - Essential (primary) hypertension (9) Colostomy and enterostomy complications Current Visit: Yes Status: Acute (10) Decubitus ulcer of coccygeal region, stage 3 Current Visit: No Status: Acute (11) Atrial fibrillation Current Visit: Yes Status: Chronic Qualifiers: Atrial fibrillation type: paroxysmal Qualified Code(s): I48.0 - Paroxysmal atrial fibrillation (12) Colon cancer Current Visit: Yes Status: Inactive Qualifiers: Colon location: unspecified part of colon Qualified Code(s): C18.9 - Malignant neoplasm of colon, unspecified - Subjective Interval history: History: Mr. 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 Patient seen today. He feels much better now. Asking when he can he go home. Apparently he lives by himself and his sister comes and help him. We will discuss his disposition in PCR conference tomorrow. His history is well awake and alert and does not seem in any distress. I think with IV hydration and to IV antibiotic his sensorium has pressed toward. Continue current treatment and follow the labs. CBC CMP ordered. Awaiting cultures #1 sepsis #2 UTI #3 EUGENIO #4 recent pneumonia/COPD #5 chronic stage II decubitus ulcer/non-healing ostomy ulcer/status post [place] secondary to colon cancer #6 chronic atrial fibrillation #7 diabetes /hypertension /dyslipidemia #8 history of prostate cancer colon cancer and CHF - Constitutional Vitals: Temp Pulse Resp BP Pulse Ox 98 F 63 16 112/68 96 08/18/17 16:08 08/18/17 16:08 08/18/17 16:08 08/18/17 16:08 08/18/17 16:08 General appearance: Present: cooperative, A&O X 3, pleasant, no acute distress, answers questions appropriately - Head Head exam: Present: atraumatic, normocephalic - Eye Eye exam: Present: PERRL, conjuntiva pink, sclera anicteric Pupils: Present: PERRL - Neck Neck exam general surgery: Present: supple, trachea midline. Absent: lymphadenopathy - Respiratory Respiratory exam: Present: CTAB. Absent: accessory muscle use, rales, rhonchi, wheezes - Cardiovascular Cardiovascular exam: Present: RRR, +S1, +S2. Absent: diastolic murmur, gallop, rubs, systolic murmur - GI/Abdominal GI/Abdominal exam: Present: normal bowel sounds, soft, no peritoneal signs. Absent: distended, tenderness - Extremities Exam Extremities exam: Present: warm, radial pulses palpable and symmetrical. Absent : calf tenderness, cyanotic, pedal edema - Neurological Exam Neurological exam: Present: CN II-XII intact, oriented X3, no focal deficits. Absent: pronater drift, facial droop, speech deficit - Skin Skin exam: Present: dry, intact Internal Medicine: Result - Labs CBC & Chem 7: 08/16/17 22:24 08/17/17 04:03 - ABG Interpretation ABG results: PT/INR, D-dimer PT 17.8 Seconds (9.4-12.1) H 08/17/17 04:03 Consult Discharge Plan - [facility] [place] Care Provider[facility] -
[2017-08-18] MEDS: *HR* Warfarin 2 MG TABLET PO SCH (17:04)
--- NOTE | 2017-08-18 17:53 | Electrocardiograph Report ---
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
[2017-08-18] MEDS: Insulin DETEMIR 100 UNIT/ML X5UNITS SQ SCH (20:16)
[2017-08-18] MEDS: Vancomycin 1,250 MG in D5% in Water 250 ML IVPB SCH (23:25)
[2017-08-19 02:11] LABS: Basophils # 0.1 K/mcL (0.0-0.2); Basophils % 0.9 %; Eosinophils # 0.1 K/mcL (0.0-0.6); Eosinophils % 1.4 %; Hemoglobin 9.1 g/dL (12.9-16.9); Immature Granulocytes % 0.6 % (0-4); Lymphocytes % 15.7 %; Mean Corpuscular HGB Conc 31.4 g/dL (31.6-35.5); Mean Corpuscular Hemoglobin 27.4 pg (28.0-33.3); Mean Corpuscular Volume 87.3 fL (83.0-100.0); Mean Platelet Volume 10.4 fL (9.4-12.4); Monocytes # 0.5 K/mcL (0.0-1.3); Neutrophils # 4.8 K/mcL (1.6-8.9); Platelet Count 223 K/mcL (140-400); Red Blood Count 3.32 M/mcL (4.19-5.50); Segmented Neutrophils % 73.4 %
[2017-08-19 02:20] LABS: INR 1.6; Prothrombin Time 17.2 Seconds (9.4-12.1)
[2017-08-19 02:30] LABS: Alanine Aminotransferase 25 Units/L (0-55); Albumin 2.1 g/dL (3.5-5.0); Albumin/Globulin Ratio 0.5 (1.1-2.2); Alkaline Phosphatase 93 Units/L (38-126); Aspartate Amino Transferase 24 Units/L (5-34); BUN/Creatinine Ratio 14 (6-26); Bilirubin,Total 0.2 mg/dL (0.2-1.2); Calcium 8.1 mg/dL (8.6-10.8); Carbon Dioxide 19 mEq/L (19-29); Chloride 110 mEq/L (98-109); Globulin 3.9 g/dL (2.4-3.5); Glucose 143 mg/dL (70-99); Osmolality,Calculated 292 (280-300); Potassium 3.2 mEq/L (3.5-4.5); Sodium 139 mEq/L (136-145); eGFR For African Americans > 60 (> 60); eGFR For Non-African Americans 57 (> 60)
[2017-08-19 02:35] LABS: Blood Urea Nitrogen 18 mg/dL (8-26)
[2017-08-19] MEDS: Piperacillin/Tazobactam 3.375 GM in D5% in Water (Mini-Bag+) 100 ML IVPB SCH (04:13)
[2017-08-19] MEDS: Famotidine 20 MG/2 ML VIAL IVP SCH (06:41)
[2017-08-19] MEDS: Diltiazem CD (24hr) 120 MG CAPSULE PO SCH (08:08)
[2017-08-19] MEDS: Furosemide 40 MG TABLET PO SCH (08:08)
[2017-08-19] MEDS: Zinc Sulfate 220 MG CAPSULE PO SCH (08:08)
[2017-08-19] MEDS: Folic Acid 1 MG TABLET PO SCH (08:08)
[2017-08-19] MEDS: Ascorbic Acid 500 MG TABLET PO SCH (08:08)
[2017-08-19] MEDS: Lactobacillus 1 EACH CAP.SPRINK PO SCH (08:09)
[2017-08-19] MEDS: Aspirin 81 MG TAB.CHEW PO SCH (08:09)
[2017-08-19] MEDS: Insulin LISPRO 300 UNITS/3 ML VIAL SQ SCH ×4 (08:11→11:59)
--- NOTE | 2017-08-19 09:22 | Internal Med Progress Note ---
Date of Encounter: 08/19/17 Time of Encounter: 09:19 - Assessment and plan (1) Sepsis Current Visit: Yes Status: Acute Qualifiers: Sepsis type: sepsis due to unspecified organism Qualified Code(s): A41.9 - Sepsis, unspecified organism (2) Pyelonephritis, acute Current Visit: Yes Status: Acute (3) EUGENIO (acute kidney injury) Current Visit: Yes Status: Acute (4) Nonhealing surgical wound Current Visit: Yes Status: Acute Qualifiers: Encounter type: subsequent encounter Qualified Code(s): T81.89XD - Other complications of procedures, not elsewhere classified, subsequent encounter (5) Hypomagnesemia Current Visit: Yes Status: Acute (6) Hyperkalemia Current Visit: Yes Status: Acute (7) Diabetes mellitus Current Visit: Yes Status: Chronic Qualifiers: Diabetes mellitus type: type 2 Diabetes mellitus complication status: with unspecified complications Diabetes mellitus terminal system operator insulin use: without detention use Qualified Code(s): E11.8 - Type 2 diabetes mellitus with unspecified complications (8) Hypertension Current Visit: Yes Status: Chronic Qualifiers: Hypertension type: essential hypertension Qualified Code(s): I10 - Essential (primary) hypertension (9) Colostomy and enterostomy complications Current Visit: Yes Status: Acute (10) Decubitus ulcer of coccygeal region, stage 3 Current Visit: No Status: Acute (11) Atrial fibrillation Current Visit: Yes Status: Chronic Qualifiers: Atrial fibrillation type: paroxysmal Qualified Code(s): I48.0 - Paroxysmal atrial fibrillation (12) Colon cancer Current Visit: Yes Status: Inactive Qualifiers: Colon location: unspecified part of colon Qualified Code(s): C18.9 - Malignant neoplasm of colon, unspecified - Subjective Interval history: History: Mr. 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 Patient's urine culture showed enterococcus. DC IV vancomycin and Zosyn and start IV ampicillin 500 every 6. Watch CBC. If remained afebrile and the white count remained normal can be discharged on ampicillin by mouth. Potassium 3.2, supplement and recheck tomorrow. Renal function corrected. DC IV fluid. Patient seen today. He feels much better now. Asking when he can he go home. Apparently he lives by himself and his sister comes and help him. We will discuss his disposition in PCR conference tomorrow. His history is well awake and alert and does not seem in any distress. Continue current treatment and follow the labs. CBC CMP ordered. #1 sepsis #2 UTI #3 EUGENIO #4 recent pneumonia/COPD #5 chronic stage II decubitus ulcer/non-healing ostomy ulcer/status post [place] secondary to colon cancer #6 chronic atrial fibrillation #7 diabetes /hypertension /dyslipidemia #8 history of prostate cancer colon cancer and CHF - Constitutional Vitals: Temp Pulse Resp BP Pulse Ox 97.4 F L 74 16 117/74 96 08/19/17 07:30 08/19/17 07:30 08/19/17 07:30 08/19/17 07:30 08/19/17 07:30 General appearance: Present: cooperative, A&O X 3, pleasant, no acute distress, answers questions appropriately - Head Head exam: Present: atraumatic, normocephalic - Eye Eye exam: Present: PERRL, conjuntiva pink, sclera anicteric Pupils: Present: PERRL - Neck Neck exam general surgery: Present: supple, trachea midline. Absent: lymphadenopathy - Respiratory Respiratory exam: Present: CTAB. Absent: accessory muscle use, rales, rhonchi, wheezes - Cardiovascular Cardiovascular exam: Present: RRR, +S1, +S2. Absent: diastolic murmur, gallop, rubs, systolic murmur - GI/Abdominal GI/Abdominal exam: Present: normal bowel sounds, soft, no peritoneal signs. Absent: distended, tenderness - Extremities Exam Extremities exam: Present: warm, radial pulses palpable and symmetrical. Absent : calf tenderness, cyanotic, pedal edema - Neurological Exam Neurological exam: Present: CN II-XII intact, oriented X3, no focal deficits. Absent: pronater drift, facial droop, speech deficit - Skin Skin exam: Present: dry, intact Internal Medicine: Result - Labs CBC & Chem 7: 08/19/17 01:39 08/19/17 01:39 Labs: Short CBC 08/19/17 Range/Units 01:39 WBC 6.5 (4.3-11.1) K/mcL Hgb 9.1 L (12.9-16.9) g/dL Hct 29.0 L (37.5-50.1) % Plt Count 223 (140-400) K/mcL Neutrophils # 4.8 (1.6-8.9) K/mcL BMP 08/19/17 01:39 Sodium 139 Potassium 3.2 L Chloride 110 H Carbon Dioxide 19 BUN 18 D Creatinine 1.25 Glucose 143 H Calcium 8.1 L Liver Function 08/19/17 Range/Units 01:39 Total Bilirubin 0.2 (0.2-1.2) mg/dL AST 24 (5-34) Units/L ALT 25 (0-55) Units/L Alkaline Phosphatase 93 (38-126) Units/L Albumin 2.1 L (3.5-5.0) g/dL - ABG Interpretation ABG results: PT/INR, D-dimer PT 17.2 Seconds (9.4-12.1) H 08/19/17 01:39 Consult Discharge Plan - [place] [facility] [place] [Primary Care Provider] -
[2017-08-19 10:44] VITALS: BP 114/74
[2017-08-19] MEDS ORDERED: Ampicillin 1,000 MG in 0.9 % Sodium Chloride Mini Bag 100 ML IVPB SCH (12:00)
[2017-08-19] MEDS ORDERED: Ampicillin 500 MG VIAL IVPB SCH (12:00)
--- NOTE | 2017-08-19 12:05 | Discharge Summary ---
Date of Encounter: 08/19/17 Time of Encounter: 12:01 - Discharge Diagnosis (1) Sepsis Priority: Primary Status: Acute Qualifiers: Sepsis type: sepsis due to unspecified organism Qualified Code(s): A41.9 - Sepsis, unspecified organism (2) Pyelonephritis, acute Priority: Secondary Status: Acute (3) EUGENIO (acute kidney injury) Priority: Secondary Status: Acute (4) Hypomagnesemia Priority: Secondary Status: Acute (5) Hyperkalemia Priority: Secondary Status: Acute (6) Diabetes mellitus Priority: Secondary Status: Chronic Qualifiers: Diabetes mellitus type: type 2 Diabetes mellitus complication status: with unspecified complications Diabetes mellitus nursing home insulin use: without nursing home use Qualified Code(s): E11.8 - Type 2 diabetes mellitus with unspecified complications (7) Hypertension Priority: Secondary Status: Chronic Qualifiers: Hypertension type: essential hypertension Qualified Code(s): I10 - Essential (primary) hypertension (8) Colostomy and enterostomy complications Priority: Secondary Status: Acute (9) Decubitus ulcer of coccygeal region, stage 3 Priority: Secondary Status: Acute (10) Atrial fibrillation Priority: Secondary Status: Chronic Qualifiers: Atrial fibrillation type: paroxysmal Qualified Code(s): I48.0 - Paroxysmal atrial fibrillation (11) Colon cancer Priority: Secondary Status: Inactive Qualifiers: Colon location: unspecified part of colon Qualified Code(s): C18.9 - Malignant neoplasm of colon, unspecified - Discharge Medications Prescriptions: Ampicillin Trihydrate 500 mg PO Q6HR #40 capsule Warfarin [Coumadin] 3 mg PO 1800 #15 tablet Home Medications: Atorvastatin [Lipitor] 40 mg PO HS 09/22/15 [History] Ferrous Sulfate 325 mg PO BID 09/22/15 [History] Furosemide [Lasix] 40 mg PO DAILY 09/22/15 [History] Glimepiride [Amaryl] 4 mg PO QAM 09/22/15 [History] Potassium Chloride 40 meq PO DAILY 09/22/15 [History] Folic Acid 1 mg PO DAILY #30 tablet 11/01/15 [Rx] Metoprolol [Lopressor] 12.5 mg PO BID 05/14/16 [History] SitaGLIPtin [Januvia] 100 mg PO DAILY 05/14/16 [History] Aspirin 81 mg PO DAILY 08/13/16 [History] Diltiazem HCl [Diltiazem 24Hr Cd] 120 mg PO DAILY 03/19/17 [History] Metformin HCl [Glucophage] 1,000 mg PO BID 06/13/17 [History] Docusate Sodium [Colace] 100 mg PO BID #60 06/26/17 [Rx] Ranitidine HCl [Zantac] 150 mg PO BID PRN 07/08/17 [History] Fluticasone/Salmeterol [Advair Hfa 115-21 Mcg Inhaler] 2 puff IH BID 08/01/17 [ History] Ascorbic Acid [Vitamin C] 500 mg PO BID #30 tablet 08/09/17 [Rx] GuaiFENesin ER [Mucinex] 600 mg PO BID #30 tbbp.12hr 08/09/17 [Rx] Lactobacillus [Culturelle] 1 each PO DAILY #14 cap.sprink 08/09/17 [Rx] Sodium Bicarbonate 650 mg PO TID #180 tablet 08/09/17 [Rx] Zinc Sulfate 220 mg PO DAILY #3 capsule 08/09/17 [Rx] Albuterol Sulfate [Proair Hfa] 2 puff IH Q4H #0 08/19/17 [Rx] Ampicillin Trihydrate 500 mg PO Q6HR #40 capsule 08/19/17 [Rx] Warfarin [Coumadin] 3 mg PO 1800 #15 tablet 08/19/17 [Rx] Allergies/Adverse Reactions: 3 Allergy/AdvReac Type Severity Reaction Status Date / Time No Known Allergies Allergy Verified 07/08/17 10:24 Date of admission: 08/16/17 21:21 Primary care physician: Guillermo Garibay MD Consults: 08/16/17 21:51 Consult to Occupational Therapy [CONS] Routine Comment: Evaluate, develop and implement POC Reason for Consult: Weakness Consult to Physical Therapy [CONS] Routine Comment: Evaluate, develop and implement POC Reason for Consult: Weakness Consult to Director Skills [CONS] Routine Reason for SW Consult: [facility] patient 08/17/17 00:08 Consult to Wound Care [CONS] Routine Reason for Consult: Ostomy site wound and sacral decubitus ulcer Call Completed: No - Patient Status Disposition: Home, Self-Care Condition: Undetermined Overall status at discharge: patient is progressing back to baseline - Discharge Instructions Instructions: Urinary Tract Infection in Men (DC), Sepsis (DC) Follow Up With: Guillermo Garibay MD [Primary Care Provider] - - Diet and Activity Activity: increase activity as tolerated Diet: advance to your usual diet Hospital course: Mr. 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 Patient's urine culture showed enterococcus. DC IV vancomycin and Zosyn started earlier and start IV ampicillin 500 every 6. The patient does not want to stay any further and wants to leave to home. He was offered group home which he declined.. Patient says he is quite functional at home. PT evaluation also done. He will be discharged home. His potassium is supplemented today. #1 sepsis #2 UTI #3 EUGENIO #4 recent pneumonia/COPD #5 chronic stage II decubitus ulcer/non-healing ostomy ulcer/status post [place] secondary to colon cancer #6 chronic atrial fibrillation #7 diabetes /hypertension /dyslipidemia #8 history of prostate cancer colon cancer and CHF - Time Spent with Patient Total time spent providing and/or coordinating discharge services: Greater than 30 minutes - Constitutional Vitals: Temp Pulse Resp BP Pulse Ox 97.5 F L 66 17 114/74 97 08/19/17 10:43 08/19/17 10:43 08/19/17 10:43 08/19/17 10:43 08/19/17 10:43 General appearance: Present: cooperative, A&O X 3, pleasant, no acute distress, answers questions appropriately - Head Head exam: Present: atraumatic, normocephalic - Eye Eye exam: Present: PERRL, conjuntiva pink, sclera anicteric Pupils: Present: PERRL - Neck Neck exam general surgery: Present: supple, trachea midline. Absent: lymphadenopathy - Respiratory Respiratory exam: Present: CTAB. Absent: accessory muscle use, rales, rhonchi, wheezes - Cardiovascular Cardiovascular exam: Present: RRR, +S1, +S2. Absent: diastolic murmur, gallop, rubs, systolic murmur - GI/Abdominal GI/Abdominal exam: Present: normal bowel sounds, soft, no peritoneal signs. Absent: distended, tenderness - Extremities Exam Extremities exam: Present: warm, radial pulses palpable and symmetrical. Absent : calf tenderness, cyanotic, pedal edema - Neurological Exam Neurological exam: Present: CN II-XII intact, oriented X3, no focal deficits. Absent: pronater drift, facial droop, speech deficit - Skin Skin exam: Present: dry, intact
[2017-08-19] MEDS ORDERED: Aminoglycoside Consult 1 EACH MC ONE (13:38)
[2017-08-19] MEDS ORDERED: Famotidine 20 MG TABLET PO SCH (16:30)
== END 2017-08-19 13:39 | disposition home or self-care (01) | DRG 871 ==
LOC: 2ANU 17:29 → EMEROO 17:29 → 2ANU 21:13
PROVIDERS: ADMIT Family Medicine; ATTEND Internal Medicine

== ENCOUNTER 2018-07-15 16:38 | Inpatient (IN) ==
[2018-07-15] MEDS ORDERED: Isovue-370 500 ML INFUS..BTL IV ONE (17:04)
[2018-07-15] MEDS ORDERED: 0.9 % Sodium Chloride 1,000 ML IVC STA (17:05)
--- NOTE | 2018-07-15 17:05 | Emergency Department Note ---
Disposition Clinical Impression: UTI (urinary tract infection) Qualifiers: Urinary tract infection type: site unspecified Hematuria presence: without hematuria Qualified Code(s): N39.0 - Urinary tract infection, site not specified Sepsis Qualifiers: Sepsis type: sepsis due to unspecified organism Qualified Code(s): A41.9 - Sepsis, unspecified organism Sacral decubitus ulcer Qualifiers: Pressure injury stage: unspecified pressure injury stage Qualified Code(s): L89.159 - Pressure ulcer of sacral region, unspecified stage Disposition: Admitted As Inpatient Condition: Fair Referrals: Guillermo Garibay MD [Primary Care Provider] - Forms: ED Satisfaction Letter General Adult HPI - General Chief complaint: ED Back Pain/Injury Stated complaint: Lower Back Pain Time Seen by Provider: 07/15/18 16:51 Source: patient, EMS Limitations: no limitations Nursing Notes Reviewed: Yes Vital Signs Reviewed: Yes - History of Present Illness HPI Narrative: The patient is a 72 year old male who presented with back pain. The pain was sharp, began this afternoon, and is located in the center of his back in the thoracolumbar region. The pain is now intermittent and feels like a cramping pain. The pain does not radiate. The pain was so severe the patient reports 1 episode of nonbloody emesis and chills. He denied numbness or tingling, hematuria, bloody stools, abdominal pain, focal weakness, trauma. He has a history of colon cancer and currently has an ostomy in place, prostate cancer with current marrufo catheter, DVT, atrial fibrillation on Warfarin, and anemia. He has a history of UTIs. His most recent INR was 3.2, checked five days ago. He denied change in ostomy or marrufo output. He denied chemo and radiation therapy. Pain Scale: 8 - Related Data Home Medications Medication Instructions Recorded Confirmed Atorvastatin [Lipitor] 40 mg PO HS 09/22/15 02/10/18 Ferrous Sulfate 325 mg PO BID 09/22/15 02/10/18 Furosemide [Lasix] 40 mg PO DAILY 09/22/15 02/10/18 Glimepiride [Amaryl] 4 mg PO QAM 09/22/15 02/10/18 Potassium Chloride 40 meq PO DAILY 09/22/15 02/10/18 Metoprolol [Lopressor] 12.5 mg PO BID 05/14/16 02/10/18 SitaGLIPtin [Januvia] 100 mg PO DAILY 05/14/16 02/10/18 Diltiazem HCl [Diltiazem 24Hr Cd] 120 mg PO DAILY 03/19/17 02/10/18 Metformin HCl [Glucophage] 1,000 mg PO BID 06/13/17 02/10/18 raNITIdine HCl [Zantac] 150 mg PO BID PRN 07/08/17 02/10/18 Fluticasone/Salmeterol [Advair Hfa 2 puff IH BID 08/01/17 02/10/18 115-21 Mcg Inhaler] Previous Rx's Medication Instructions Recorded Folic Acid 1 mg PO DAILY #30 tablet 11/01/15 Docusate Sodium [Colace] 100 mg PO BID #60 06/26/17 GuaiFENesin ER [Mucinex] 600 mg PO BID #30 tbbp.12hr 08/09/17 Zinc Sulfate 220 mg PO DAILY #3 capsule 08/09/17 Albuterol Sulfate [Proair Hfa] 2 puff IH Q4H #0 08/19/17 Warfarin [Coumadin] 3 mg PO 1800 #15 tablet 08/19/17 Allergies Allergy/AdvReac Type Severity Reaction Status Date / Time No Known Allergies Allergy Verified 07/08/17 10:24 Constitutional: Reports: chills, weakness Eyes: Denies: eye pain, eye discharge, vision change ENT ED: Denies: ear pain, throat pain, dental pain, hearing loss, epistaxis, congestion, dysphagia Cardiovascular: Denies: chest pain, palpitations, dyspnea on exertion, edema, syncope Respiratory: Denies: cough, dyspnea, wheezes, hemoptysis, stridor Gastrointestinal: Reports: vomiting. Denies: abdominal pain, nausea, diarrhea, constipation, hematemesis, melena, hematochezia Genitourinary: Reports: other (patient with marrufo catheter) Musculoskeletal: Reports: back pain (pain at central back in thoracolumbar region), other (He denied tearing pain to back, denied leg pain). Denies: neck pain Integumentary: Reports: lesions (Bleeding from around the rectum described as spotting.). Denies: rash, abrasion Neurological: Denies: headache, weakness, numbness, paresthesias, confusion, abnormal gait, vertigo Past Medical History - Past Medical History Medical history: Reports: asthma, atrial fibrillation, cancer, DVT, diabetes, hyperlipidemia, hypertension, other Surgical history: Reports: carotid endarterectomy, cholecystectomy, colectomy, colostomy (Sounds as though this was done as a diverting colostomy due to his prostate cancer and radiation.), prostatectomy, other Psychiatric history: Reports: no psych history - Social History Smoking Status: Former smoker Smokeless Tobacco Status: No Alcohol use: Reports: none Drug use: Reports: none Physical Exam General: Well appearing, nontoxic, no acute distress Head: Normocephalic Atraumatic Eyes: PERRL, EOMI ENT: Airway patent, no stridor Neck: supple Chest: Lungs clear to auscultation bilateral Cardiac: Regular rhythm Abdomen: soft, mild tenderness to palpation over the lower quadrants. Colostomy in place and functioning properly with pink healthy tissue. nondistended; no guarding, rebound, or tenderness to percussion. Marrufo catheter in place. Examination patient's back reveals mild skin breakdown. Patient has noticed some blood from the skin breakdown but it does not appear to be purulent or infected at this time. Musculoskeletal: Calves symmetric, nontender, no palpable cord Skin: No rash, normal skin tone Neuro: Alert and Oriented to person, place, and time; No focal deficit, CN 2-12 symmetric and intact - General Limitations: no limitations General appearance: alert Course - Reevaluation(s) Reevaluation #1: Patient with sacral decubitus ulcer stage I mild skin breakdown. Patient's urine concerning for urinary tract infection with multiple positive cultures in the past. Patient has elevated white count and came in tachycardic. Concern for urosepsis. Patient will be admitted for IV antibiotics and cultures. Vital Signs Temperature 98.8 F 07/15/18 16:42 Pulse Rate 124 07/15/18 16:42 Respiratory Rate 21 07/15/18 16:42 Blood Pressure 128/82 07/15/18 16:42 O2 Sat by Pulse Oximetry 97 07/15/18 16:42 Temperature 98.8 F 07/15/18 16:42 Pulse Rate 106 07/15/18 18:29 Respiratory Rate 19 07/15/18 18:29 Blood Pressure 128/65 07/15/18 18:29 O2 Sat by Pulse Oximetry 96 07/15/18 18:29 Oxygen Delivery Oxygen Delivery Room Air Medical Decision Making - Lab Data Result diagrams: 07/15/18 17:14 07/15/18 17:14 Lab Results 07/15/18 07/15/18 07/15/18 Range/Units 17:14 17:14 17:14 WBC 16.8 H (4.3-11.1) K/mcL RBC 4.27 (4.19-5.50) M/mcL Hgb 12.8 L (12.9-16.9) g/dL Hct 38.4 (37.5-50.1) % MCV 89.9 (83.0-100.0) fL MCH 30.0 (28.0-33.3) pg MCHC 33.3 (31.6-35.5) g/dL RDW 16.5 H (11.5-14.5) % Plt Count 250 (140-400) K/mcL MPV 10.7 (9.4-12.4) fL Immature Gran % 0.6 (0-4) % Seg Neutrophils % 93.2 % Lymphocytes % 2.3 % Monocytes % 3.6 % Eosinophils % 0.1 % Basophils % 0.2 % Neutrophils # 15.7 H (1.6-8.9) K/mcL Lymphocytes # 0.4 L (0.6-4.6) K/mcL Monocytes # 0.6 (0.0-1.3) K/mcL Eosinophils # 0.0 (0.0-0.6) K/mcL Basophils # 0.0 (0.0-0.2) K/mcL PT 34.5 H (9.4-12.1) Seconds INR 3.1 Sodium 134 L (136-145) mEq/L Potassium 3.4 L (3.5-5.1) mEq/L Chloride 104 (98-107) mEq/L Carbon Dioxide 17 L (23-29) mEq/L BUN 26 H (8-23) mg/dL Creatinine 1.70 H (0.70-1.30) mg/dL Est GFR ( Amer) 49 L (> 60) Est GFR (Non-Af Amer) 40 L (> 60) BUN/Creatinine Ratio 15 (6-26) Glucose 314 H (70-105) mg/dL Calculated Osmolality 295 (280-300) Calcium 8.5 L (8.6-10.3) mg/dL Total Bilirubin 0.4 (0.3-1.0) mg/dL Direct Bilirubin 0.1 (0.0-0.2) mg/dL Indirect Bilirubin 0.3 (0.0-1.2) mg/dL AST 32 (13-39) Units/L ALT 35 (7-52) Units/L Alkaline Phosphatase 101 (34-104) Units/L Troponin I < 0.03 (< 0.04) ng/mL Serum Total Protein 6.6 (6.4-8.9) g/dL Albumin 3.4 L (3.5-5.7) g/dL Globulin 3.2 (2.4-3.5) g/dL Albumin/Globulin Ratio 1.1 (1.1-2.2) Lipase 51 (11-82) Units/L Urine Color (Yellow) Urine Clarity (Clear) Urine pH (5.0-8.0) pH Units Ur Specific [place] (1.010-1.025) Urine Protein (Neg-Trace) mg/dL Urine Glucose (UA) (Normal) mg/dL Urine Ketones (Negative) mg/dL Urine Blood (Negative) Urine Nitrite (Negative) Urine Bilirubin (Negative) Urine Urobilinogen (Normal) mg/dL Ur Leukocyte Esterase (Negative) Urine Microscopic RBC (0-3) per hpf Urine Microscopic WBC (0-3) per hpf Ur Squamous Epith Cells (None-Few) per lpf Amorphous Sediment (Few) Urine Bacteria (None-Few) per hpf Hyaline Casts (None-Few) per lpf Urine Yeast Ur Culture Indicated? (NO) Blood Type Antibody Screen 07/15/18 07/15/18 Range/Units 17:14 17:20 WBC (4.3-11.1) K/mcL RBC (4.19-5.50) M/mcL Hgb (12.9-16.9) g/dL Hct (37.5-50.1) % MCV (83.0-100.0) fL MCH (28.0-33.3) pg MCHC (31.6-35.5) g/dL RDW (11.5-14.5) % Plt Count (140-400) K/mcL MPV (9.4-12.4) fL Immature Gran % (0-4) % Seg Neutrophils % % Lymphocytes % % Monocytes % % Eosinophils % % Basophils % % Neutrophils # (1.6-8.9) K/mcL Lymphocytes # (0.6-4.6) K/mcL Monocytes # (0.0-1.3) K/mcL Eosinophils # (0.0-0.6) K/mcL Basophils # (0.0-0.2) K/mcL PT (9.4-12.1) Seconds INR Sodium (136-145) mEq/L Potassium (3.5-5.1) mEq/L Chloride (98-107) mEq/L Carbon Dioxide (23-29) mEq/L BUN (8-23) mg/dL Creatinine (0.70-1.30) mg/dL Est GFR ( Amer) (> 60) Est GFR (Non-Af Amer) (> 60) BUN/Creatinine Ratio (6-26) Glucose (70-105) mg/dL Calculated Osmolality (280-300) Calcium (8.6-10.3) mg/dL Total Bilirubin (0.3-1.0) mg/dL Direct Bilirubin (0.0-0.2) mg/dL Indirect Bilirubin (0.0-1.2) mg/dL AST (13-39) Units/L ALT (7-52) Units/L Alkaline Phosphatase (34-104) Units/L Troponin I (< 0.04) ng/mL Serum Total Protein (6.4-8.9) g/dL Albumin (3.5-5.7) g/dL Globulin (2.4-3.5) g/dL Albumin/Globulin Ratio (1.1-2.2) Lipase (11-82) Units/L Urine Color Yellow (Yellow) Urine Clarity Turbid A (Clear) Urine pH 5.0 (5.0-8.0) pH Units Ur Specific [place] 1.020 (1.010-1.025) Urine Protein >=300 H (Neg-Trace) mg/dL Urine Glucose (UA) 250 H (Normal) mg/dL Urine Ketones Negative (Negative) mg/dL Urine Blood Large H (Negative) Urine Nitrite Positive A (Negative) Urine Bilirubin Negative (Negative) Urine Urobilinogen Normal (Normal) mg/dL Ur Leukocyte Esterase Moderate H (Negative) Urine Microscopic RBC 50-100 H (0-3) per hpf Urine Microscopic WBC TNTC H (0-3) per hpf Ur Squamous Epith Cells Many H (None-Few) per lpf Amorphous Sediment Many H (Few) Urine Bacteria Many H (None-Few) per hpf Hyaline Casts None Seen (None-Few) per lpf Urine Yeast Test Not Performed Ur Culture Indicated? NO. A (NO) Blood Type B NEGATIVE Antibody Screen NEGATIVE
[2018-07-15 17:34] LABS: Basophils % 0.2 %; Eosinophils % 0.1 %; Hematocrit 38.4 % (37.5-50.1); Hemoglobin 12.8 g/dL (12.9-16.9); Immature Granulocytes % 0.6 % (0-4); Lymphocytes # 0.4 K/mcL (0.6-4.6); Lymphocytes % 2.3 %; Mean Corpuscular HGB Conc 33.3 g/dL (31.6-35.5); Mean Corpuscular Volume 89.9 fL (83.0-100.0); Mean Platelet Volume 10.7 fL (9.4-12.4); Monocytes # 0.6 K/mcL (0.0-1.3); Monocytes % 3.6 %; Neutrophils # 15.7 K/mcL (1.6-8.9); Platelet Count 250 K/mcL (140-400); Red Blood Count 4.27 M/mcL (4.19-5.50); Red Cell Distribution Width 16.5 % (11.5-14.5); Segmented Neutrophils % 93.2 %
[2018-07-15 17:35] LABS: Bilirubin,Urine Negative (Negative); Blood,Urine Large (Negative); Clarity,Urine Turbid (Clear); Color,Urine Yellow (Yellow); Glucose,Urine (UA) 250 mg/dL (Normal); Ketones,Urine Negative (Negative); Leukocyte Esterase,Urine Moderate (Negative); Nitrite,Urine Positive (Negative); Protein,Urine >=300 mg/dL (Neg-Trace); Urobilinogen,Urine Normal (Normal)
[2018-07-15 17:37] LABS: Bacteria,Urine Many per hpf (None-Few); Hyaline Casts,Urine None Seen per lpf (None-Few); Squamous Epithelial Cell,Urine Many per lpf (None-Few); WBC,Urine TNTC per hpf (0-3)
[2018-07-15 17:41] LABS: INR 3.1; Prothrombin Time 34.5 Seconds (9.4-12.1)
[2018-07-15 17:51] LABS: RBC,Urine 50-100 per hpf (0-3)
[2018-07-15 17:52] LABS: Amorphous Sediment,Urine Many (Few)
[2018-07-15 17:57] LABS: Alanine Aminotransferase 35 Units/L (7-52); Albumin 3.4 g/dL (3.5-5.7); Albumin/Globulin Ratio 1.1 (1.1-2.2); Alkaline Phosphatase 101 Units/L (34-104); Aspartate Amino Transferase 32 Units/L (13-39); BUN/Creatinine Ratio 15 (6-26); Bilirubin,Direct 0.1 mg/dL (0.0-0.2); Bilirubin,Indirect 0.3 mg/dL (0.0-1.2); Bilirubin,Total 0.4 mg/dL (0.3-1.0); Blood Urea Nitrogen 26 mg/dL (8-23); Calcium 8.5 mg/dL (8.6-10.3); Carbon Dioxide 17 mEq/L (23-29); Chloride 104 mEq/L (98-107); Globulin 3.2 g/dL (2.4-3.5); Glucose 314 mg/dL (70-105); Lipase 51 Units/L (11-82); Osmolality,Calculated 295 (280-300); Potassium 3.4 mEq/L (3.5-5.1); Sodium 134 mEq/L (136-145); Total Protein 6.6 g/dL (6.4-8.9); Troponin I < 0.03 ng/mL (< 0.04); eGFR For Non-African Americans 40 (> 60)
[2018-07-15] MEDS ORDERED: Cefepime HCl 2,000 MG in 0.9 % Sodium Chloride Mini Bag 100 ML IVPB STA (19:36)
[2018-07-15] MEDS ORDERED: Cefepime HCl 2,000 MG in Water for inj. (sterile) 20 ML 20 ML IVPB STA (20:31)
[2018-07-15] MEDS ORDERED: Acetaminophen 325 MG TABLET PO PRN (22:00)
[2018-07-15] MEDS ORDERED: traMADol 50 MG TABLET PO PRN (22:00)
[2018-07-15] MEDS ORDERED: Naloxone 0.4 MG/ML INJ IVP PRN (22:00)
[2018-07-15] MEDS ORDERED: Gadolinium Contrast Agent (WT Based) IV PRN (22:23)
--- NOTE | 2018-07-15 22:38 | Internal Med History&Physical ---
Date of Encounter: 07/16/18 Time of Encounter: 22:31 Internal Medicine - H&P: HPI Chief complaint: back pain Admitted From: Home Plans for Post Hospital Care: Home History of present illness: Mr. Mccain is a 72 year old male diabetes, hypertension, COPD versus asthma, colon cancer status post subtotal colectomy, prostate cancer status post surgery and atrial fibrillation who came in with complain of severe back pain. Patient was relatively well before noon on the day of admission. About 2:00 in the afternoon while he was sitting on a chair he started experiencing back pain which became severe from 5-6 initially to 7-9 later on which made him to come to ER. He denied any fevers however had shaking and some sweating. He had 2 episodes of vomiting when he had severe pain. He denied any recent infection. He has a indwelling suprapubic Graves catheter which is changed every month. Last change was on 01 July. He mentions he has a sore on his buttock which is not healing. He is not bed bound at home and is able to ambulate. Denies any chest pain, shortness of breath or abdominal pain. He has a nurse and an aide at home who helps with his colostomy and his catheter care. Denies any urinary tract infection in the last 1 year. Is taking Coumadin for his atrial fibrillation regularly. Denies any abdominal pain. Denies any weakness, numbness or tingling in upper or lower extremity. Has some leg swelling. He has history of DVT in left leg. Past Med Surg Social Fam HX - Past Medical History Medical history: asthma, atrial fibrillation, cancer, DVT, diabetes, hyperlipidemia, hypertension, other Additional medical history: peptic ulcer disease. colon ca. prostate ca Psychiatric history: no psych history - Past Surgical History Surgical History: carotid endarterectomy, cholecystectomy, colectomy, colostomy (Sounds as though this was done as a diverting colostomy due to his prostate cancer and radiation.), prostatectomy, other Additional surgical history: perineal resection - Social History Smoking Status: Former smoker Smokeless Tobacco Status: No Alcohol use: none Drug use: none - Family History Mother Living Status: Hx Family Cardiac Disorders: Yes (htn) Hx Family Respiratory Disorders: No Hx Family Cancer: No Hx Family GI Disorders: No Hx Family Endocrine Disorder: No Hx Family Neuromuscular Disorders: No Hx Family Neurologic Disorders: No Hx Family HEENT Disorders: No Hx Family Autoimmune Disorders: No Father Adopted: No Living Status: Hx Family Cardiac Disorders: Yes Hx Family Respiratory Disorders: No Hx Family Cancer: No Hx Family GI Disorders: No Hx Family Endocrine Disorder: No Hx Family Neuromuscular Disorders: No Hx Family Neurologic Disorders: No Hx Family HEENT Disorders: No Hx Family Autoimmune Disorders: No Internal Medicine - H&P: Meds Atorvastatin [Lipitor] 40 mg PO HS 07/15/18 [History] Docusate Sodium [Dok] 100 mg PO BID PRN 07/15/18 [History] Ferrous Sulfate 325 mg PO BID 07/15/18 [History] Fluticasone/Salmeterol [Advair Hfa 115-21 Mcg Inhaler] 2 puff IH BID 07/15/18 [ History] Folic Acid 1 mg PO DAILY 07/15/18 [History] Metoprolol [Lopressor] 12.5 mg PO BID 07/15/18 [History] Ranitidine HCl [Acid Low Pressure Boiler Operator] 150 mg PO BID 07/15/18 [History] dilTIAZem HCl [Diltiazem 24Hr ER] 120 mg PO DAILY 07/15/18 [History] 3 Allergy/AdvReac Type Severity Reaction Status Date / Time No Known Allergies Allergy Verified 07/15/18 21:22 All Systems PM: A 10-system review of systems was performed and is negative for pertinent findings except as documented above in the HPI. - Constitutional Vitals: Temp Pulse Resp BP Pulse Ox 98.8 F 106 14 131/77 96 07/15/18 16:42 07/15/18 18:29 07/15/18 22:11 07/15/18 22:11 07/15/18 18:29 Exam: Const: Vital signs listed above.In mild distress due to pain. Alert and oriented Xs 3. Obese Eyes: Sclera white, conjunctiva clear, lids are without lag. PERRLA. Pupils and irises are equal and round without defect. ENT: TMs intact and clear, normal canals, grossly normal hearing. Oropharanx clear and moist without erythema. Gums pink, good dentition. Lymph/Neck: No masses, thyromegaly, or abnormal cervical notes. No bruit. Tracheal midline. Cardio: Regular rhythm, tachycardic, Normal S1, S2 w/o murmurs, rubs or gallops. Skin warm and dry. 1+ peripheral edema. Respiratory: Chest symmetrical, respirations non-labored. No dullness or flatness. Clear bilaterally to auscultation, non-tender to palpitation. Musculo: No deformity or scoliosis noted. . No cyanosis or edema. Pulses normal in all 4 extremities. No atrophy or abnormal movements. Appropriate muscle strength bilaterally. Tenderness on palpation of spine over Lower thoracic/ upper lumbar vertebrae. Neurologic: No focal deficits, cranial nerves II-XII grossly intact with normal sensation, reflexes, coordination, muscle strength and tone. GI/Abdomen: Soft, Mild diffuse tenderness, non distended, no hepatosplemomegaly , no masses noted. Rt coloscotomy noted with no blood, Suprapubic catheter noted. Skin: Mid-line abdominal scar noted. Stasis dermatitis on Both legs. DTI on Rt buttock. Internal Med - H&P Results - Labs CBC & Chem 7: 07/16/18 00:31 07/16/18 00:31 - Assessment and plan (1) Back pain Current Visit: Yes Status: Acute Assessment and plan: - Acute back pain with abnormal urine analysis and leukocytosis. - Patient has signs of sepsis. Possible source could be urinary tract however given long-standing indwelling Graves catheter abnormal UA could be at baseline. Alternative sources has to be considered. - CT abdomen and pelvis without IV and oral contrast showed no bone and soft tissue abnormality, stable postop colectomy changes, nonobstructive renal calculi, thickening bladder wall. - Patient received 1 L of IV fluids and a dose of cefepime in the ER. Urine cultures were drawn. - We will draw blood cultures and lactate. Start patient on IV fluids. We will bolus if elevated lactate confirms sepsis. - Suspicion of spinal abscess. Severe back pain, however no focal deficits. We will start patient on vancomycin and continue cefepime. Will obtain stat MR of lumbar and thoracic spine to rule out spinal abscess.. - We will consult infectious disease in the morning Qualifiers: Back pain location: thoracic back pain Chronicity: acute Back pain laterality: midline Qualified Code(s): M54.6 - Pain in thoracic spine (2) Abnormal urinalysis Current Visit: Yes Status: Acute Assessment and plan: See above (3) UTI (urinary tract infection) Current Visit: Yes Status: Acute Assessment and plan: See above Qualifiers: Urinary tract infection type: site unspecified Hematuria presence: without hematuria Qualified Code(s): N39.0 - Urinary tract infection, site not specified (4) Diabetes Current Visit: No Status: Acute Assessment and plan: - Hold oral home hypoglycemics. - Start patient on Levemir 10 units at bedtime. Also start sliding scale insulin and Accu-Cheks. Qualifiers: Diabetes mellitus type: type 2 Diabetes mellitus watermelon harvesting supervisor insulin use: without watermelon harvesting supervisor use Diabetes mellitus complication status: with unspecified complications Qualified Code(s): E11.8 - Type 2 diabetes mellitus with unspecified complications (5) Hypokalemia Current Visit: No Status: Acute Assessment and plan: Monitor for now (6) Leukocytosis Current Visit: No Status: Acute Assessment and plan: See above Qualifiers: Leukocytosis type: unspecified Qualified Code(s): D72.829 - Elevated white blood cell count, unspecified (7) S/P small bowel resection Current Visit: No Status: Acute (8) Atrial fibrillation Current Visit: No Status: Chronic Assessment and plan: - We will hold her home Coumadin for now given INR of 3.1. - Continue home with diltiazem Qualifiers: Atrial fibrillation type: chronic Qualified Code(s): I48.2 - Chronic atrial fibrillation (9) Sepsis Current Visit: Yes Status: Acute Assessment and plan: As above Qualifiers: Sepsis type: sepsis due to unspecified organism Qualified Code(s): A41.9 - Sepsis, unspecified organism (10) Diastolic CHF Current Visit: Yes Status: Chronic Assessment and plan: - Continue home statin and beta maria esther - Hold Lasix Qualifiers: Qualified Code(s): I50.32 - Chronic diastolic (congestive) heart failure (11) DVT prophylaxis Current Visit: No Status: Acute Assessment and plan: - Patient on anticoagulation with Coumadin at home - Currently INR 3.1. Slightly supratherapeutic. - We will hold coumadin for now - Time Spent With Patient Total time spent is greater than 50% in coordination of care (as documented) at patient's floor/unit and/or counseling patient:
[2018-07-15] MEDS: *HR* OxyCODONE Immed Rel 5 MG TABLET PO PRN (23:08)
[2018-07-15] MEDS: 0.9 % Sodium Chloride 1,000 ML IVC SCH (23:33)
[2018-07-15] MEDS ORDERED: 0.9 % Sodium Chloride 1,000 ML IVC ONE (23:37)
[2018-07-16] MEDS ORDERED: Dextrose Gel 15 GM/37.5 ML TUBE PO PRN ×2 (00:32)
[2018-07-16] MEDS ORDERED: *HR* Dextrose 50 % in Water (Syg) 50 ML SYRINGE IVP PRN (00:32)
[2018-07-16] MEDS ORDERED: D5% in Water 1,000 ML IVC PRN (00:32)
[2018-07-16] MEDS ORDERED: Ipratropium/Albuterol Neb 3 ML IH PRN (00:41)
[2018-07-16 01:06] LABS: Basophils % 0.1 %; Eosinophils % 0.1 %; Hematocrit 36.6 % (37.5-50.1); Hemoglobin 11.8 g/dL (12.9-16.9); Immature Granulocytes % 0.5 % (0-4); Lymphocytes # 0.4 K/mcL (0.6-4.6); Lymphocytes % 2.6 %; Mean Corpuscular HGB Conc 32.2 g/dL (31.6-35.5); Mean Corpuscular Hemoglobin 29.5 pg (28.0-33.3); Mean Corpuscular Volume 91.5 fL (83.0-100.0); Mean Platelet Volume 10.6 fL (9.4-12.4); Monocytes # 0.4 K/mcL (0.0-1.3); Monocytes % 2.4 %; Neutrophils # 15.7 K/mcL (1.6-8.9); Platelet Count 196 K/mcL (140-400); Red Cell Distribution Width 16.5 % (11.5-14.5); Segmented Neutrophils % 94.3 %
[2018-07-16 01:16] LABS: Albumin 2.9 g/dL (3.5-5.7); Bilirubin,Total 0.4 mg/dL (0.3-1.0); Calcium 7.8 mg/dL (8.6-10.3); Potassium 3.6 mEq/L (3.5-5.1); Total Protein 5.9 g/dL (6.4-8.9)
[2018-07-16] MEDS ORDERED: 0.9 % Sodium Chloride 500 ML IVC ONE ×2 (01:33→04:04)
[2018-07-16] MEDS: Cefepime HCl 2,000 MG in Water for inj. (sterile) 20 ML 20 ML IVP SCH ×2 (04:23→16:55)
[2018-07-16 05:16] LABS: Calcium 7.5 mg/dL (8.6-10.3); Potassium 3.7 mEq/L (3.5-5.1)
[2018-07-16 05:29] LABS: INR 2.8; Prothrombin Time 31.7 Seconds (9.4-12.1)
[2018-07-16] MEDS: Famotidine 20 MG TABLET PO SCH ×2 (06:11→16:54)
[2018-07-16] MEDS ORDERED: Insulin LISPRO 300 UNITS/3 ML VIAL SQ SCH ×2 (07:30→21:00)
[2018-07-16] MEDS: Budesonide/Formoterol 80/4.5 MDI IH SCH ×2 (07:44→21:49)
[2018-07-16] MEDS: Insulin LISPRO 300 UNITS/3 ML VIAL SQ SCH ×4 (08:28→20:48)
[2018-07-16] MEDS: Folic Acid 1 MG TABLET PO SCH (08:30)
[2018-07-16] MEDS: Diltiazem CD (24hr) 120 MG CAPSULE PO SCH (08:30)
[2018-07-16] MEDS ORDERED: Aminoglycoside Consult 1 EACH MC ONE (08:36)
[2018-07-16] MEDS: 0.9 % Sodium Chloride 1,000 ML IVC SCH (14:04)
--- NOTE | 2018-07-16 14:35 | Internal Med Progress Note ---
Hospitalist Progress Note - Encounter Date of Encounter: 07/16/18 Time of Encounter: 10:20 - Subjective Interval History: H&P reviewed. 72-year-old male with history of diabetes, A. fib, colon cancer status post subtotal colectomy with colostomy tube and prostate cancer on chronic Graves catheter, presented to the ED with severe back pain. He is currently being treated for severe sepsis secondary to UTI and acute on chronic kidney disease. Lactic acidosis and creatinine both improving with IV fluid. Feels slightly better now, also endorses that he was a heavy drinker in the past but quit 4 years ago. No chest pain, cough, sputum production, joint pain, or rash. - Exam Vitals: Temp Pulse Resp BP Pulse Ox 98.7 F 73 19 120/66 94 07/16/18 11:00 07/16/18 11:00 07/16/18 11:00 07/16/18 11:00 07/16/18 11:00 Exam: Const: not in distress. Alert and oriented Xs 3. Obese Cardio: Normal rate, Regular rhythm Respiratory: Clear to auscultation, no rales/wheezes GI/Abdomen: Soft, non-tender, colostomy bag with brown stool. Urinary catheter draining cloudy urine Neurologic: No focal deficits - Assessment and Plan (1) Severe sepsis Current Visit: No Status: Acute Assessment and Plan: leukocytosis and tachycardia on presentation, Secondary to urinary source Associated with lactic acidosis and acute on chronic kidney injury -> responded to fluid boluses and maintenance IV fluid Previous urine culture grew Citrobacter freundii, sensitive to cefepime We will continue cefepime but DC vancomycin as there is no evidence of epidural abscess on MRI spines Follow-up on blood and urine culture (2) UTI (urinary tract infection) Current Visit: Yes Status: Acute Assessment and Plan: See above (3) Acute on chronic kidney failure Current Visit: Yes Status: Acute Assessment and Plan: Baseline creatinine about 1.1-1.2 Improving with IV fluid, continue (4) Atrial fibrillation Current Visit: No Status: Chronic Assessment and Plan: On diltiazem, beta maria esther for rate control and Coumadin for anticoagulation resume all meds as BP stable and INR therapeutic (5) Diabetes Current Visit: No Status: Acute Assessment and Plan: Continue Levemir 10 units at bedtime with moderate dose sliding scale insulin BGM AC+HS, ADA diet (6) Hypokalemia Current Visit: No Status: Acute Assessment and Plan: Repleted and normal today (7) DVT prophylaxis Current Visit: No Status: Acute Assessment and Plan: On Coumadin - Time Spent with Patient Total time spent is greater than 50% in coordination of care (as documented) at patient's floor/unit and/or counseling patient: Plan of Care Discussed with: nurse Internal Medicine: Result - Labs CBC & Chem 7: 07/16/18 00:31 07/16/18 04:27 Labs: Short CBC 07/16/18 Range/Units 00:31 WBC 16.6 H (4.3-11.1) K/mcL Hgb 11.8 L (12.9-16.9) g/dL Hct 36.6 L (37.5-50.1) % Plt Count 196 (140-400) K/mcL Neutrophils # 15.7 H (1.6-8.9) K/mcL BMP 07/16/18 07/16/18 00:31 04:27 Sodium 135 L 135 L Potassium 3.6 3.7 Chloride 107 109 H Carbon Dioxide 16 L 15 L BUN 24 H 22 Creatinine 1.84 H 1.66 H Glucose 271 H 286 H Calcium 7.8 L 7.5 L Liver Function 07/16/18 Range/Units 00:31 Total Bilirubin 0.4 (0.3-1.0) mg/dL AST 23 (13-39) Units/L ALT 26 (7-52) Units/L Alkaline Phosphatase 90 (34-104) Units/L Albumin 2.9 L (3.5-5.7) g/dL - ABG Interpretation ABG results: PT/INR, D-dimer PT 31.7 Seconds (9.4-12.1) H 07/16/18 04:00 Consult Discharge Plan - Plan Referrals: [place],Guillermo Preciado MD [Primary Care Provider] - (2) UTI (urinary tract infection) Qualifiers: Urinary tract infection type: site unspecified Hematuria presence: without hematuria Qualified Code(s): N39.0 - Urinary tract infection, site not specified (4) Atrial fibrillation Qualifiers: Atrial fibrillation type: chronic Qualified Code(s): I48.2 - Chronic atrial fibrillation (5) Diabetes Qualifiers: Diabetes mellitus type: type 2 Diabetes mellitus intermediate manager insulin use: without intermediate manager use Diabetes mellitus complication status: with unspecified complications Qualified Code(s): E11.8 - Type 2 diabetes mellitus with unspecified complications
[2018-07-16] MEDS: *HR* OxyCODONE Immed Rel 5 MG TABLET PO PRN (20:37)
[2018-07-16] MEDS ORDERED: Insulin DETEMIR 100 UNIT/ML X5UNITS SQ SCH (21:00)
[2018-07-17] MEDS: 0.9 % Sodium Chloride 1,000 ML IVC SCH (02:23)
[2018-07-17] MEDS ORDERED: Ondansetron ODT 4 MG TAB.RAPDIS SL ONE (03:09)
[2018-07-17 03:41] LABS: Basophils % 0.2 %; Eosinophils # 0.1 K/mcL (0.0-0.6); Eosinophils % 0.8 %; Hematocrit 32.6 % (37.5-50.1); Hemoglobin 10.5 g/dL (12.9-16.9); Immature Granulocytes % 0.8 % (0-4); Lymphocytes # 0.6 K/mcL (0.6-4.6); Lymphocytes % 5.1 %; Mean Corpuscular HGB Conc 32.2 g/dL (31.6-35.5); Mean Corpuscular Hemoglobin 29.2 pg (28.0-33.3); Mean Corpuscular Volume 90.8 fL (83.0-100.0); Mean Platelet Volume 10.7 fL (9.4-12.4); Monocytes # 1.1 K/mcL (0.0-1.3); Monocytes % 9.1 %; Neutrophils # 10.1 K/mcL (1.6-8.9); Platelet Count 134 K/mcL (140-400); Red Blood Count 3.59 M/mcL (4.19-5.50); Red Cell Distribution Width 16.7 % (11.5-14.5)
[2018-07-17 03:52] LABS: Calcium 8.2 mg/dL (8.6-10.3); Potassium 3.5 mEq/L (3.5-5.1)
[2018-07-17] MEDS: *HR* OxyCODONE Immed Rel 5 MG TABLET PO PRN ×2 (05:15→20:52)
[2018-07-17] MEDS: Cefepime HCl 2,000 MG in Water for inj. (sterile) 20 ML 20 ML IVP SCH ×2 (05:17→17:18)
[2018-07-17] MEDS: Insulin LISPRO 300 UNITS/3 ML VIAL SQ SCH ×7 (09:04→20:49)
[2018-07-17] MEDS ORDERED: Ondansetron 4 MG/2 ML VIAL IVP PRN (09:05)
[2018-07-17] MEDS: Folic Acid 1 MG TABLET PO SCH (09:06)
[2018-07-17] MEDS: Famotidine 20 MG TABLET PO SCH ×2 (09:06→17:19)
[2018-07-17] MEDS: Diltiazem CD (24hr) 120 MG CAPSULE PO SCH (09:06)
[2018-07-17] MEDS ORDERED: Vancomycin 1,750 MG in 0.9 % Sodium Chloride 250 ML IVPB SCH (10:00)
[2018-07-17] MEDS: 0.45 % Sodium Chloride w/KCl 20 MEQ/1,000 ML MLS IVC SCH ×2 (10:23→23:27)
[2018-07-17] MEDS ORDERED: Promethazine 12.5 MG in 0.9 % Sodium Chloride 50 ML IVPB PRN (10:42)
[2018-07-17] MEDS: Budesonide/Formoterol 80/4.5 MDI IH SCH ×2 (10:59→20:41)
--- NOTE | 2018-07-17 16:11 | Internal Med Progress Note ---
Hospitalist Progress Note - Encounter Date of Encounter: 07/17/18 Time of Encounter: 11:00 - Subjective Interval History: Patient states that he is mildly nauseous and vomited 2-3 times overnight. No abdominal discomfort. Denies fever/chills. - Exam Vitals: Temp Pulse Resp BP Pulse Ox 97.8 F 78 17 183/94 95 07/17/18 07:19 07/17/18 07:19 07/17/18 11:00 07/17/18 07:19 07/17/18 11:00 Exam: Const: not in distress. Alert and oriented Xs 3. Obese Cardio: Normal rate, Regular rhythm Respiratory: Clear to auscultation, no rales/wheezes GI/Abdomen: Soft, non-tender, colostomy bag only with small amount of brown stool. Urinary catheter draining cloudy urine Neurologic: No focal deficits - Assessment and Plan (1) Severe sepsis Current Visit: No Status: Acute Assessment and Plan: leukocytosis and tachycardia on presentation, Secondary to urinary source Associated with lactic acidosis and acute on chronic kidney injury -> responded to fluid boluses and maintenance IV fluid Previous urine culture grew Citrobacter freundii, sensitive to cefepime abx was de-escalated to cefepime only but developed nausea overnight ?poorly controlled sepsis will re-add vanc and continue till culture results become available urine culture growing GNR and enterococcus species follow up on blood cultures (2) Nausea and vomiting Current Visit: No Status: Resolved Assessment and Plan: possibly due to poorly controlled sepsis vs. bowel obstruction in view of his colostomy status and slightly decreased stoma output symptomatic mx, expand abx coverage as above check AXR, if any signs of obstruction, will consult surgery clear liquids (3) UTI (urinary tract infection) Current Visit: Yes Status: Acute Assessment and Plan: See above (4) Acute on chronic kidney failure Current Visit: Yes Status: Acute Assessment and Plan: Baseline creatinine about 1.1-1.2 Improving with IV fluid but unable to take much by mouth due to N/V 1/2 NS with potassium due to hyperchloremic metabolic acidosis (5) Atrial fibrillation Current Visit: No Status: Chronic Assessment and Plan: On diltiazem, beta maria esther for rate control Yesterday, it was reported that the patient is on Coumadin for anticoagulation but current med list does not contain one regardless, INR yesterday was therapeutic and would follow up with repeat INR in the morning tomorrow and verify warfarin with the pharmacist (6) Diabetes Current Visit: No Status: Acute Assessment and Plan: Blood glucose persistently elevated above 230 Increase Levemir to 12 units at at bedtime and add prandial lispro 3 units 3 times a day with meals. Keep moderate dose sliding scale insulin BGM AC+HS, ADA diet (7) Hypokalemia Current Visit: No Status: Acute Assessment and Plan: Borderline low today, IV fluid as above (8) DVT prophylaxis Current Visit: No Status: Acute Assessment and Plan: Yesterday, it was reported that the patient is on Coumadin for anticoagulation but current med list does not contain one regardless, INR yesterday was therapeutic and would follow up with repeat INR in the morning tomorrow and verify warfarin with the pharmacist - Time Spent with Patient Total time spent is greater than 50% in coordination of care (as documented) at patient's floor/unit and/or counseling patient: Plan of Care Discussed with: nurse Internal Medicine: Result - Labs CBC & Chem 7: 07/17/18 03:21 07/17/18 03:21 Labs: Short CBC 07/17/18 Range/Units 03:21 WBC 12.0 H (4.3-11.1) K/mcL Hgb 10.5 L (12.9-16.9) g/dL Hct 32.6 L (37.5-50.1) % Plt Count 134 L (140-400) K/mcL Neutrophils # 10.1 H (1.6-8.9) K/mcL BMP 07/17/18 03:21 Sodium 139 Potassium 3.5 Chloride 114 H Carbon Dioxide 18 L BUN 20 Creatinine 1.60 H Glucose 241 H Calcium 8.2 L - ABG Interpretation ABG results: PT/INR, D-dimer PT 31.7 Seconds (9.4-12.1) H 07/16/18 04:00 - Impressions Impressions Chest/Abdomen X-ray 07/17/18 09:10 IMPRESSION: 1. No acute pulmonary process. 2. Stable chronic left hemidiaphragm elevation which may relate to paresis versus paralysis. 3. Postsurgical change with no evidence of obstruction or perforation. D/ / 07/17/2018 10:33:22 Reilly Rothman MD / rigo Interpreting Provider: Reilly Rothman MD Consult Discharge Plan - Plan Referrals: Guillermo Garibay MD [Primary Care Provider] - (2) Nausea and vomiting Qualifiers: Vomiting type: unspecified Qualified Code(s): R11.2 - Nausea with vomiting, unspecified (3) UTI (urinary tract infection) Qualifiers: Urinary tract infection type: site unspecified Hematuria presence: without hematuria Qualified Code(s): N39.0 - Urinary tract infection, site not specified (5) Atrial fibrillation Qualifiers: Atrial fibrillation type: chronic Qualified Code(s): I48.2 - Chronic atrial fibrillation (6) Diabetes Qualifiers: Diabetes mellitus type: type 2 Diabetes mellitus retirement insulin use: without retirement use Diabetes mellitus complication status: with unspecified complications Qualified Code(s): E11.8 - Type 2 diabetes mellitus with unspecified complications
[2018-07-17] MEDS: Insulin DETEMIR 100 UNIT/ML X5UNITS SQ SCH (20:48)
[2018-07-18 05:22] LABS: Basophils % 0.2 %; Eosinophils # 0.2 K/mcL (0.0-0.6); Eosinophils % 2.6 %; Hematocrit 35.6 % (37.5-50.1); Hemoglobin 11.2 g/dL (12.9-16.9); Immature Granulocytes % 1.1 % (0-4); Lymphocytes # 0.7 K/mcL (0.6-4.6); Lymphocytes % 7.8 %; Mean Corpuscular HGB Conc 31.5 g/dL (31.6-35.5); Mean Corpuscular Hemoglobin 29.5 pg (28.0-33.3); Mean Corpuscular Volume 93.7 fL (83.0-100.0); Monocytes # 0.7 K/mcL (0.0-1.3); Monocytes % 7.5 %; Neutrophils # 7.5 K/mcL (1.6-8.9); Platelet Count 148 K/mcL (140-400); Red Cell Distribution Width 16.5 % (11.5-14.5); Segmented Neutrophils % 80.8 %
[2018-07-18 05:24] LABS: INR 1.4; Prothrombin Time 16.2 Seconds (9.4-12.1)
[2018-07-18 05:37] LABS: Calcium 8.2 mg/dL (8.6-10.3); Magnesium 1.9 mg/dL (1.6-2.6); Potassium 3.7 mEq/L (3.5-5.1)
[2018-07-18] MEDS: Cefepime HCl 2,000 MG in Water for inj. (sterile) 20 ML 20 ML IVP SCH (05:40)
[2018-07-18] MEDS: Famotidine 20 MG TABLET PO SCH ×2 (05:41→16:37)
[2018-07-18] MEDS: Insulin LISPRO 300 UNITS/3 ML VIAL SQ SCH ×7 (08:10→21:27)
[2018-07-18] MEDS: Diltiazem CD (24hr) 120 MG CAPSULE PO SCH (08:11)
[2018-07-18] MEDS: Folic Acid 1 MG TABLET PO SCH (08:11)
[2018-07-18] MEDS: *HR* OxyCODONE Immed Rel 5 MG TABLET PO PRN (08:26)
[2018-07-18] MEDS: Budesonide/Formoterol 80/4.5 MDI IH SCH ×2 (08:38→20:09)
--- NOTE | 2018-07-18 12:33 | Internal Med Progress Note ---
Hospitalist Progress Note - Encounter Date of Encounter: 07/18/18 Time of Encounter: 10:20 - Subjective Interval History: Nausea improved over the course of yesterday and he has the usual amount of output from stoma again. No abdominal discomfort. Denies fever/chills. - Exam Vitals: Temp Pulse Resp BP Pulse Ox 97.7 F 77 18 145/79 98 07/18/18 11:18 07/18/18 11:18 07/18/18 11:18 07/18/18 11:18 07/18/18 11:18 Exam: Const: not in distress. Alert and oriented Xs 3. Obese Cardio: Normal rate, Regular rhythm Respiratory: Clear to auscultation, no rales/wheezes GI/Abdomen: Soft, non-tender, colostomy bag brown, watery fecal content. Urinary catheter draining cloudy urine Neurologic: No focal deficits - Assessment and Plan (1) Severe sepsis Current Visit: Yes Status: Acute Assessment and Plan: leukocytosis and tachycardia on presentation, Secondary to urinary source. Unable to exclude the possibility that it is associated with chronic marrufo use Associated with lactic acidosis and acute on chronic kidney injury (stage 3) -> responded to fluid boluses and maintenance IV fluid has been on vanc/cefepime, urine culture came back +ve for E coli (pansensitive ) and Enterococcus sen to ampicillin We will de-escalate antibiotics to ampicillin for 12 more days for a total of 14 day course. Discussed with pharmacy for dosing Patient is recommended to go SNF for further rehabilitation but not sure whether he will be agreeable -> if he is to go home, would discharge him on PO Augmentin blood cultures NGTD (2) UTI (urinary tract infection) Current Visit: Yes Status: Acute Assessment and Plan: See above (3) Acute on chronic kidney failure Current Visit: Yes Status: Acute Assessment and Plan: Baseline creatinine about 1.1-1.2 Slowly improving with IV fluid, oral intake is also getting better with resolution of nausea will continue 1/2 NS with potassium for now, can probably d/c if he is more reliably taking by mouth (4) Atrial fibrillation Current Visit: No Status: Chronic Assessment and Plan: On diltiazem, beta maria esther for rate control and coumadin for anticoagulation INR 1.4 today, coumadin dosing per pharmacy (5) Diabetes Current Visit: No Status: Acute Assessment and Plan: continue Levemir 12 units at at bedtime and prandial lispro 3 units 3 times a day with meals. Keep moderate dose sliding scale insulin BGM AC+HS, ADA diet (6) Hypokalemia Current Visit: No Status: Acute Assessment and Plan: normal today (7) DVT prophylaxis Current Visit: No Status: Acute Assessment and Plan: resume coumadin - Time Spent with Patient Total time spent is greater than 50% in coordination of care (as documented) at patient's floor/unit and/or counseling patient: Plan of Care Discussed with: nurse Internal Medicine: Result - Labs CBC & Chem 7: 07/18/18 04:37 07/18/18 04:37 Labs: Short CBC 07/18/18 Range/Units 04:37 WBC 9.3 (4.3-11.1) K/mcL Hgb 11.2 L (12.9-16.9) g/dL Hct 35.6 L (37.5-50.1) % Plt Count 148 (140-400) K/mcL Neutrophils # 7.5 (1.6-8.9) K/mcL BMP 07/18/18 04:37 Sodium 138 Potassium 3.7 Chloride 111 H Carbon Dioxide 22 L BUN 16 Creatinine 1.52 H Glucose 223 H Calcium 8.2 L - ABG Interpretation ABG results: PT/INR, D-dimer PT 16.2 Seconds (9.4-12.1) H 07/18/18 04:37 - Impressions Impressions Chest/Abdomen X-ray 07/17/18 09:10 IMPRESSION: 1. No acute pulmonary process. 2. Stable chronic left hemidiaphragm elevation which may relate to paresis versus paralysis. 3. Postsurgical change with no evidence of obstruction or perforation. D/ / 07/17/2018 10:33:22 Reilly Rothman MD / rigo Interpreting Provider: Reilly Rothman MD Consult Discharge Plan - Plan [facility] [place] [facility] - (2) UTI (urinary tract infection) Qualifiers: Urinary tract infection type: site unspecified Hematuria presence: without hematuria Qualified Code(s): N39.0 - Urinary tract infection, site not specified (4) Atrial fibrillation Qualifiers: Atrial fibrillation type: chronic Qualified Code(s): I48.2 - Chronic atrial fibrillation (5) Diabetes Qualifiers: Diabetes mellitus type: type 2 Diabetes mellitus snf insulin use: without computer terminal operator use Diabetes mellitus complication status: with unspecified complications Qualified Code(s): E11.8 - Type 2 diabetes mellitus with unspecified complications
[2018-07-18] MEDS: 0.45 % Sodium Chloride w/KCl 20 MEQ/1,000 ML MLS IVC SCH (14:03)
[2018-07-18] MEDS: Ampicillin 2 GM in 0.9 % Sodium Chloride Mini Bag 100 ML IVPB SCH ×2 (14:05→18:35)
[2018-07-18] MEDS ORDERED: *HR* Warfarin 5 MG TABLET PO ONE (18:00)
[2018-07-18] MEDS ORDERED: Warfarin perPT PO PRN (18:00)
[2018-07-18] MEDS: Insulin DETEMIR 100 UNIT/ML X5UNITS SQ SCH (21:28)
--- NOTE | 2018-07-19 00:09 | Event Note ---
Date of Encounter: 07/19/18 Time of Encounter: 21:18 Alerted by pts. nurse IVAN Knott that patient reported new numbness and tingling to bilateral lower extremities. Pulses were 2+ dorsal pedis bilaterally with RLE cooler with capillary refill less than 3 seconds. LLE is warm to the touch with capillary refill less than 3 seconds. Patient has history of DVT left thigh. Order for bilateral Dopplers of LEs placed stat. Notified at 00:00 the Doppler completed and showed SVT to left leg above-knee. Patient currently on Coumadin. Received 5 mg dose of Coumadin today @ 18:00 as verified by Pharmacy. Pt. to be monitored closely.
[2018-07-19] MEDS: *HR* OxyCODONE Immed Rel 5 MG TABLET PO PRN ×2 (00:27→14:55)
[2018-07-19] MEDS: Ampicillin 2 GM in 0.9 % Sodium Chloride Mini Bag 100 ML IVPB SCH ×3 (00:29→14:51)
[2018-07-19] MEDS: 0.45 % Sodium Chloride w/KCl 20 MEQ/1,000 ML MLS IVC SCH ×2 (04:05→15:58)
[2018-07-19 04:29] LABS: Basophils % 0.2 %; Eosinophils # 0.2 K/mcL (0.0-0.6); Eosinophils % 2.6 %; Hematocrit 33.5 % (37.5-50.1); Hemoglobin 10.6 g/dL (12.9-16.9); Immature Granulocytes % 0.8 % (0-4); Lymphocytes # 0.7 K/mcL (0.6-4.6); Lymphocytes % 8.8 %; Mean Corpuscular HGB Conc 31.6 g/dL (31.6-35.5); Mean Corpuscular Hemoglobin 29.2 pg (28.0-33.3); Mean Corpuscular Volume 92.3 fL (83.0-100.0); Mean Platelet Volume 10.6 fL (9.4-12.4); Monocytes # 0.8 K/mcL (0.0-1.3); Monocytes % 9.3 %; Neutrophils # 6.5 K/mcL (1.6-8.9); Platelet Count 146 K/mcL (140-400); Red Blood Count 3.63 M/mcL (4.19-5.50); Red Cell Distribution Width 16.1 % (11.5-14.5); Segmented Neutrophils % 78.3 %
[2018-07-19 04:45] LABS: INR 1.5
[2018-07-19 04:55] LABS: Calcium 8.3 mg/dL (8.6-10.3); Potassium 4.1 mEq/L (3.5-5.1)
[2018-07-19] MEDS: Budesonide/Formoterol 80/4.5 MDI IH SCH (07:50)
[2018-07-19] MEDS: Famotidine 20 MG TABLET PO SCH (09:12)
[2018-07-19] MEDS: Diltiazem CD (24hr) 120 MG CAPSULE PO SCH (09:12)
[2018-07-19] MEDS: Folic Acid 1 MG TABLET PO SCH (09:12)
[2018-07-19] MEDS: Insulin LISPRO 300 UNITS/3 ML VIAL SQ SCH ×4 (09:13→14:52)
[2018-07-19 10:43] VITALS: BP 179/84
--- NOTE | 2018-07-19 13:24 | Discharge Summary ---
Orders not resulted at time of discharge: Pending orders 07/20/18 04:00 PT/INR [Prothrombin Time INR] [COAG] AM 04007/21/18 04:00 PT/INR [Prothrombin Time INR] [COAG] AM 0400 07/22/18 04:00 PT/INR [Prothrombin Time INR] [COAG] AM 040 Date of Encounter: 07/19/18 Time of Encounter: 13:22 - Discharge Diagnosis (1) UTI (urinary tract infection) Priority: Primary Status: Resolved Qualifiers: Urinary tract infection type: acute pyelonephritis Qualified Code(s): N10 - Acute pyelonephritis (2) S/P colon resection Priority: Secondary Status: Chronic (3) Atrial fibrillation Priority: Secondary Status: Chronic Qualifiers: Atrial fibrillation type: chronic Qualified Code(s): I48.2 - Chronic atrial fibrillation (4) Diabetes mellitus Priority: Secondary Status: Chronic Qualifiers: Diabetes mellitus type: type 2 Diabetes mellitus alf insulin use: without buttermaker use Diabetes mellitus complication status: with unspecified complications Qualified Code(s): E11.8 - Type 2 diabetes mellitus with unspecified complications (5) Hypertension Priority: Secondary Status: Chronic Qualifiers: Hypertension type: essential hypertension Qualified Code(s): I10 - Essential (primary) hypertension (6) Severe sepsis Priority: Primary Status: Resolved (7) Renal failure (ARF), acute on chronic Priority: Secondary Status: Chronic Qualifiers: Acute renal failure type: with other specified pathological lesion Chronic kidney disease stage: stage 3 (moderate) Qualified Code(s): N17.8 - Other acute kidney failure; N18.3 - Chronic kidney disease, stage 3 (moderate) Hospital course: Mr. Mccain is a 72 year old male diabetes, hypertension, COPD versus asthma, colon cancer status post subtotal colectomy, prostate cancer status post surgery and atrial fibrillation who came in with complain of severe back pain. Patient was relatively well before noon on the day of admission. About 2:00 in the afternoon while he was sitting on a chair he started experiencing back pain which became severe from 5-6 initially to 7-9 later on which made him to come to ER. He has a indwelling suprapubic Graves catheter which is changed every month. Last change was on 01 July. He mentions he has a sore on his buttock which is not healing. Has some leg swelling. He has history of DVT in left leg. He was admitted for sepsis from UTI ( back pain). patient is doing well, sepsis resolved, BC has NGSF, Urine growing E coli and enterococci sensitive to Ampicillin. patient ia alert and oriented to3, he refused SNF discharge home with home care on stable condition Discharge discussed with: patient Time spent discussing smoking cessation with patient: 3 to 10 minutes - Time Spent with Patient Total time spent providing and/or coordinating discharge services: Less than 30 minutes - Discharge Medications Prescriptions: Amoxicillin/Clavulanate [Augmentin] 875 mg PO BIDWM 10 Days #20 tablet Home Medications: Atorvastatin [Lipitor] 40 mg PO HS 07/15/18 [History] Docusate Sodium [Dok] 100 mg PO BID PRN 07/15/18 [History] Ferrous Sulfate 325 mg PO BID 07/15/18 [History] Fluticasone/Salmeterol [Advair Hfa 115-21 Mcg Inhaler] 2 puff IH BID 07/15/18 [ History] Folic Acid 1 mg PO DAILY 07/15/18 [History] Metoprolol [Lopressor] 12.5 mg PO BID 07/15/18 [History] Ranitidine HCl [Acid Superintendent Overhead Distribution] 150 mg PO BID 07/15/18 [History] dilTIAZem HCl [Diltiazem 24Hr ER] 120 mg PO DAILY 07/15/18 [History] Glimepiride [Amaryl] 4 mg PO DAILY 07/16/18 [History] SitaGLIPtin [Januvia] 100 mg PO DAILY 07/16/18 [History] Warfarin [Coumadin] 1.5 mg PO MOTHSA@1800 07/18/18 [History] Warfarin [Coumadin] 3 mg PO SUTUWEFR@1800 07/18/18 [History] Amoxicillin/Clavulanate [Augmentin] 875 mg PO BIDWM 10 Days #20 tablet 07/19/18 [Rx] Allergies/Adverse Reactions: 3 Allergy/AdvReac Type Severity Reaction Status Date / Time No Known Allergies Allergy Verified 07/15/18 21:22 Date of admission: 07/15/18 22:36 Primary care physician: Guillermo Garibay MD Consults: 07/16/18 03:55 Consult to Bass Singer [CONS] Routine Reason for SW Consult: HAS CELI DELA CRUZ RN ON & ., HOME AIDES BID AND MEALS ON WHEELS. ALSO [facility] ON [facility]. Saturday07/16/18 04:32 Consult to Nutrition [CONS] Routine Comment: Consulting Provider: NUTRITION Reason for Dietary Consult: Other Other:: very dry skin, colostomy 07/16/18 14:51 Consult to Occupational Therapy [CONS] Routine Comment: Evaluate, develop and implement POC Reason for Consult: deconditioning from sepsis, lives at home Does patient have active BEDREST order?: No Is patient medically & hemodynamically stable?: Yes Consult to Physical Therapy [CONS] Routine Comment: Evaluate, develop and implement POC Reason for Consult: deconditioning from sepsis, lives at home Does patient have active BEDREST order?: No Is patient medically & hemodynamically stable?: Yes Discharging clinician: Didier Shearer Anticipated date of discharge: 07/19/18 - Constitutional Vitals: Temp Pulse Resp BP Pulse Ox 97.8 F 95 18 179/84 94 07/19/18 10:41 07/19/18 10:41 07/19/18 10:41 07/19/18 10:41 07/19/18 10:41 General appearance: Present: A&O X 3 Exam: Const: not in distress. Alert and oriented Xs 3. Obese Cardio: Normal rate, Regular rhythm Respiratory: Clear to auscultation, no rales/wheezes GI/Abdomen: Soft, non-tender, colostomy bag brown, watery fecal content. Urinary catheter draining cloudy urine Neurologic: No focal deficits - Patient Status Disposition: Home Health Service Condition: Good Functional capacity at discharge: independent ambulation Overall status at discharge: patient is back to baseline - Discharge Instructions Follow Up With: Guillermo Garibay MD [Primary Care Provider] - - Diet and Activity Activity: as per physical therapy Diet: advance to your usual diet
--- NOTE | 2018-07-19 13:40 | Physician Discharge Referral ---
Home Health/Hosp Referral Info Provider in Charge Post Discharge: PCP - Diagnosis (1) UTI (urinary tract infection) Priority: Primary Status: Resolved (2) S/P colon resection Priority: Secondary Status: Chronic (3) Atrial fibrillation Priority: Secondary Status: Chronic (4) Diabetes mellitus Priority: Secondary Status: Chronic (5) Hypertension Priority: Secondary Status: Chronic (6) Severe sepsis Priority: Secondary Status: Resolved (7) Renal failure (ARF), acute on chronic Priority: Secondary Status: Chronic - Respiratory Orders Smoking Cessation: Smoking cessation has been advised. For more information, call the [place] Tobacco Quit Line at 5-356-RQSJ-NOW. - Diet/Nutrition Diet/Nutrition Orders: Renal, Cardiac - Activity Activity Orders: Up ad hailey - Services Needed Following services are medically necessary services: Nursing, Home Health Aide, Physical Therapy, Occupational Therapy - Transfer Medications Prescriptions: Amoxicillin/Clavulanate [Augmentin] 875 mg PO BIDWM 10 Days #20 tablet Home Medications: Atorvastatin [Lipitor] 40 mg PO HS 07/15/18 [History] Docusate Sodium [Dok] 100 mg PO BID PRN 07/15/18 [History] Ferrous Sulfate 325 mg PO BID 07/15/18 [History] Fluticasone/Salmeterol [Advair Hfa 115-21 Mcg Inhaler] 2 puff IH BID 07/15/18 [ History] Folic Acid 1 mg PO DAILY 07/15/18 [History] Metoprolol [Lopressor] 12.5 mg PO BID 07/15/18 [History] Ranitidine HCl [Acid Railway Signal Electrician] 150 mg PO BID 07/15/18 [History] dilTIAZem HCl [Diltiazem 24Hr ER] 120 mg PO DAILY 07/15/18 [History] Glimepiride [Amaryl] 4 mg PO DAILY 07/16/18 [History] SitaGLIPtin [Januvia] 100 mg PO DAILY 07/16/18 [History] Warfarin [Coumadin] 1.5 mg PO MOTHSA@1800 07/18/18 [History] Warfarin [Coumadin] 3 mg PO SUTUWEFR@1800 07/18/18 [History] Amoxicillin/Clavulanate [Augmentin] 875 mg PO BIDWM 10 Days #20 tablet 07/19/18 [Rx] Allergies/Adverse Reactions: 3 Allergy/AdvReac Type Severity Reaction Status Date / Time No Known Allergies Allergy Verified 07/15/18 21:22 Certification: Further, I certify that my clinical findings support that this patient is homebound (i.e. absences from home require considerable and taxing effort and are for medical reasons or adventism services or infrequently or short duration when for other reasons) because: Homebound Reason: Patient requires assistance of a person or device to safely leave home Attestation: My signature below is to certify that this patient is under my care and that I, or nurse practitioner, or a physician's driller's assistant working with me, has a face-to -face encounter with this patient.
[2018-07-19] MEDS ORDERED: *HR* Warfarin 3 MG TABLET PO ONE (18:00)
--- NOTE | 2018-07-21 14:13 | Electrocardiograph Report ---
[address] [address] Test Date: 2018-07-16 Pat Name: Oj Mccain Department: 112 Room: 2A Gender: M Bioinformatics Technician: : [id number] Requested By: [id number] Order Number: [id number] Reading MD: Warner Martinez Measurements Intervals [place] Rate: 109 P: 61 MD: 164 QRS: 60 QRSD: 92 T: -13 QT: 296 QTc: 360 Interpretive Statements SINUS TACHYCARDIA NONSPECIFIC ST & T-WAVE ABNORMALITY Electronically Signed On 07-21-2018 14:11:58 EDT by Warner Martinez
== END 2018-07-19 16:54 | disposition home health service (06) | DRG 698 ==
LOC: 2ANU 16:38 → EMEROOARM 16:38 → SUATTDRO 22:36 → 2ANU 22:53
PROVIDERS: ADMIT Family Medicine; ATTEND Hospitalist

== ENCOUNTER 2018-09-21 17:08 | Inpatient (IN) ==
[2018-09-21] MEDS ORDERED: *HR* FentaNYL (PF) 100 MCG/2 ML VIAL IVP ONE (17:35)
[2018-09-21] MEDS ORDERED: 0.9 % Sodium Chloride 1,000 ML IVC ONE (17:35)
--- NOTE | 2018-09-21 17:43 | Emergency Department Note ---
Disposition Clinical Impression: Acute kidney injury, Hypokalemia Pancreatitis Qualifiers: Chronicity: acute Pancreatitis type: unspecified pancreatitis type Acute pancreatitis complication: unspecified Qualified Code(s): K85.90 - Acute pancreatitis without necrosis or infection, unspecified Abdominal pain Qualifiers: Abdominal location: unspecified location Qualified Code(s): R10.9 - Unspecified abdominal pain Urinary tract infection Qualifiers: Urinary tract infection type: site unspecified Hematuria presence: without hematuria Qualified Code(s): N39.0 - Urinary tract infection, site not specified Disposition: Admitted As Inpatient Condition: Fair Time of Disposition: 22:46 Abdominal Pain HPI - General Chief Complaint: ED Abdominal Pain Stated Complaint: Back pain Time Seen by Provider: 09/21/18 17:12 Source: patient, EMS Mode of arrival: EMS Limitations: no limitations Nursing Notes Reviewed: Yes Vital Signs Reviewed: Yes - History of Present Illness HPI Narrative: 72-year-old male history of colon cancer and prosthetic cancer currently with a colostomy presents emergency department via EMS for abdominal pain. Pain started around 1330 sharp in nature right upper quadrant some radiation from the right flank. No nausea or vomiting. Certain movements make it worse. Denies any injury or trauma to the area. No changes to his stool output from the colostomy. Denies any urinary symptoms. Denies any fever cough congestion chest pain or shortness of breath. History of colostomy performed by Dr. Miller earlier this year as he has had one previously in the lower left abdomen. Pt Subjective Complaint: abdominal pain, flank pain Pain Scale: 10 - Related Data Home Medications Medication Instructions Recorded Confirmed Atorvastatin [Lipitor] 40 mg PO HS 07/15/18 07/15/18 Docusate Sodium [Dok] 100 mg PO BID PRN 07/15/18 07/15/18 Ferrous Sulfate 325 mg PO BID 07/15/18 07/15/18 Fluticasone/Salmeterol [Advair Hfa 2 puff IH BID 07/15/18 07/15/18 115-21 Mcg Inhaler] Folic Acid 1 mg PO DAILY 07/15/18 07/15/18 Metoprolol [Lopressor] 12.5 mg PO BID 07/15/18 07/15/18 Ranitidine HCl [Acid Resin Mixer] 150 mg PO BID 07/15/18 07/15/18 dilTIAZem HCl [Diltiazem 24Hr ER] 120 mg PO DAILY 07/15/18 07/15/18 Glimepiride [Amaryl] 4 mg PO DAILY 07/16/18 07/16/18 SitaGLIPtin [Januvia] 100 mg PO DAILY 07/16/18 07/16/18 Warfarin [Coumadin] 1.5 mg PO MOTHSA@1800 07/18/18 07/18/18 Warfarin [Coumadin] 3 mg PO SUTUWEFR@1800 07/18/18 07/18/18 Previous Rx's Medication Instructions Recorded Amoxicillin/Clavulanate [Augmentin] 875 mg PO BIDWM 10 Days #20 tablet 07/19/18 Allergies Allergy/AdvReac Type Severity Reaction Status Date / Time No Known Allergies Allergy Verified 07/15/18 21:22 All systems ED: reviewed and negative except as stated. Review of Systems: As Per HPI Constitutional: Denies: fever, chills ENT ED: Denies: congestion Cardiovascular: Denies: chest pain Respiratory: Denies: cough, dyspnea Gastrointestinal: Reports: abdominal pain. Denies: nausea, vomiting, diarrhea Genitourinary: Denies: urgency, dysuria Musculoskeletal: Reports: back pain Integumentary: Denies: rash, abrasion Neurological: Denies: headache Abdominal Pain PMH - Past Medical History Medical history: Reports: asthma, atrial fibrillation, cancer, DVT, diabetes, hyperlipidemia, hypertension, other Male Surgical History: Reports: non-contributory Psychiatric history: Reports: no psych history - Social History Smoking status: Former smoker Alcohol use: Reports: none Drug use: Reports: none Physical Exam - General Limitations: no limitations General appearance: alert, obese - Head Head exam: atraumatic, normocephalic, normal inspection - Eye Eye exam: Present: normal appearance, PERRL, EOMI. Absent: scleral icterus - ENT ENT exam: normal exam, normal oropharynx, mucous membranes dry - Neck Neck exam: Present: normal inspection, full ROM, trachea midline - Chest Chest inspection: Present: normal inspection, symmetric chest wall rise. Absent: tenderness - Respiratory Respiratory exam: Present: normal lung sounds bilaterally. Absent: respiratory distress, wheezes - Cardiovascular Cardiovascular exam: Present: regular rate, normal rhythm, normal heart sounds. Absent: systolic murmur, diastolic murmur - Expanded Cardiovascular Exam Peripheral pulses: 2+: radial (R), radial (L) - Abdominal Exam Abdominal exam: Present: soft, tenderness, normal bowel sounds, other (Colostomy in the right abdomen, stoma is pink). Absent: distention, guarding, rebound, rigidity, Thomas's sign Abdominal tenderness: Present: RUQ - Extremities Exam Extremities exam: Present: normal inspection, full ROM. Absent: tenderness, pedal edema - Back Exam Back exam: Present: normal inspection, full ROM, CVA tenderness (R). Absent: tenderness, CVA tenderness (L) - Neurological Exam Neurological exam: Present: alert, oriented X3 - Psychiatric Psychiatric exam: Present: normal affect, normal mood - Skin Skin exam: Present: warm, dry, intact, normal color. Absent: rash, cyanosis, diaphoresis Course Course Narrative: Patient presents with sudden sharp wrapper quadrant pain into the flank. He has a Graves catheter in place. No associated nausea or vomiting. Patients not febrile and does not meet sepsis criteria. Does have a colostomy in place. His abdomen is quite tender in the right upper quadrant with some CVA tenderness. There is concerns for possible obstruction. CT scan basic labs including a lactate and the urinalysis. - Reevaluation(s) Reevaluation #1: CT scan shows air in the urinary bladder with inflammation consistent with cystitis. There is no evidence of hydronephrosis. Review of his labs shows a acute kidney injury as his creatinine is significantly elevated 2.76. His potassium is also about 3.1. Will replete. His lipases 222 consistent with pancreatitis. After consultation with urology we will place him on IV ceftriaxone and made him for further evaluation and treatment. His lactate is also elevated 2.7, has been fluid resuscitated with IV fluids. He will be admitted to the hospital service for urinary tract infection, pancreatitis, acute kidney injury. His pain is control at this time. - Consultations Consultation #1: Consulted urology Dr. Henao who is familiar with the patient as the patient followed with Dr. Huerta for his prostate cancer. Patient has a Graves catheter in place. There is some air in the urinary bladder with inflammation consistent with cystitis. Patient will be treated with ceftriaxone as he has been pain sensitive to his prior cultures. They will see the patient and consultation. Consultation #2: Spoke with on-call hospitalist travis Lombardo to admit for UTI,. No further orders at this timeN Vital Signs Temperature 97.9 F 09/21/18 17:12 Pulse Rate 79 09/21/18 17:12 Respiratory Rate 20 09/21/18 17:12 Blood Pressure 150/85 09/21/18 17:12 O2 Sat by Pulse Oximetry 100 09/21/18 17:12 Temperature 99.3 F 09/21/18 21:33 Pulse Rate 80 09/21/18 21:33 Respiratory Rate 15 09/21/18 21:33 Blood Pressure 136/76 09/21/18 21:33 O2 Sat by Pulse Oximetry 95 09/21/18 21:33 Oxygen Delivery Oxygen Delivery Room Air Abdominal Pain - MDM Narrative Medical decision making narrative: Patient was discussed with my attending physician who agrees with ED management and final disposition. They independently evaluated the patient. Please refer to their attestation to this encounter for additional information. This note was generated by [employer] voice recognition software and as a result grammatical or spelling errors may occur using this program. - Medical Records Medical records reviewed: Yes I reviewed the patient's medical records. - Lab Data Lab results reviewed: Yes I reviewed the patient's lab results. Result diagrams: 09/21/18 18:14 09/21/18 18:14 Lab Results 09/21/18 09/21/18 09/21/18 Range/Units 18:13 18:14 18:14 WBC 14.5 H (4.3-11.1) K/mcL RBC 4.00 L (4.19-5.50) M/mcL Hgb 11.5 L (12.9-16.9) g/dL Hct 35.8 L (37.5-50.1) % MCV 89.5 (83.0-100.0) fL MCH 28.8 (28.0-33.3) pg MCHC 32.1 (31.6-35.5) g/dL RDW 15.0 H (11.5-14.5) % Plt Count 245 (140-400) K/mcL MPV 10.4 (9.4-12.4) fL Immature Gran % 0.6 (0-4) % Seg Neutrophils % 86.7 % Lymphocytes % 3.3 % Monocytes % 8.9 % Eosinophils % 0.1 % Basophils % 0.4 % Neutrophils # 12.6 H (1.6-8.9) K/mcL Lymphocytes # 0.5 L (0.6-4.6) K/mcL Monocytes # 1.3 (0.0-1.3) K/mcL Eosinophils # 0.0 (0.0-0.6) K/mcL Basophils # 0.1 (0.0-0.2) K/mcL Sodium 129 L (136-145) mEq/L Potassium 3.1 L (3.5-5.1) mEq/L Chloride 94 L (98-107) mEq/L Carbon Dioxide 21 L (23-29) mEq/L BUN 31 H (8-23) mg/dL Creatinine 2.76 H (0.70-1.30) mg/dL Est GFR ( Amer) 28 L (> 60) Est GFR (Non-Af Amer) 23 L (> 60) BUN/Creatinine Ratio 11 (6-26) Glucose 441 H (70-105) mg/dL Calculated Osmolality 294 (280-300) Lactic Acid (0.5-2.2) mmol/L Calcium 8.8 (8.6-10.3) mg/dL Magnesium 1.8 (1.6-2.6) mg/dL Total Bilirubin 0.3 (0.3-1.0) mg/dL Direct Bilirubin 0.1 (0.0-0.2) mg/dL Indirect Bilirubin 0.2 (0.0-1.2) mg/dL AST 22 (13-39) Units/L ALT 12 (7-52) Units/L Alkaline Phosphatase 105 H (34-104) Units/L Serum Total Protein 7.2 (6.4-8.9) g/dL Albumin 3.2 L (3.5-5.7) g/dL Globulin 4.0 H (2.4-3.5) g/dL Albumin/Globulin Ratio 0.8 L (1.1-2.2) Lipase 222 H (11-82) Units/L Urine Color Yellow (Yellow) Urine Clarity Turbid A (Clear) Urine pH 5.0 (5.0-8.0) pH Units Ur Specific Gaines 1.027 H (1.010-1.025) Urine Protein 100 H (Neg-Trace) mg/dL Urine Glucose (UA) >=1000 H (Normal) mg/dL Urine Ketones Negative (Negative) mg/dL Urine Blood Large H (Negative) Urine Nitrite Negative (Negative) Urine Bilirubin Negative (Negative) Urine Urobilinogen Normal (Normal) mg/dL Ur Leukocyte Esterase Moderate H (Negative) Urine Microscopic RBC 0-3 (0-3) per hpf Urine Microscopic WBC TNTC H (0-3) per hpf Ur Squamous Epith Cells Many H (None-Few) per lpf Urine Bacteria Many H (None-Few) per hpf Hyaline Casts Few (None-Few) per lpf Urine Yeast Moderate H (None Seen) per hpf Ur Culture Indicated? NO. A (NO) 09/21/18 Range/Units 18:14 WBC (4.3-11.1) K/mcL RBC (4.19-5.50) M/mcL Hgb (12.9-16.9) g/dL Hct (37.5-50.1) % MCV (83.0-100.0) fL MCH (28.0-33.3) pg MCHC (31.6-35.5) g/dL RDW (11.5-14.5) % Plt Count (140-400) K/mcL MPV (9.4-12.4) fL Immature Gran % (0-4) % Seg Neutrophils % % Lymphocytes % % Monocytes % % Eosinophils % % Basophils % % Neutrophils # (1.6-8.9) K/mcL Lymphocytes # (0.6-4.6) K/mcL Monocytes # (0.0-1.3) K/mcL Eosinophils # (0.0-0.6) K/mcL Basophils # (0.0-0.2) K/mcL Sodium (136-145) mEq/L Potassium (3.5-5.1) mEq/L Chloride (98-107) mEq/L Carbon Dioxide (23-29) mEq/L BUN (8-23) mg/dL Creatinine (0.70-1.30) mg/dL Est GFR ( Amer) (> 60) Est GFR (Non-Af Amer) (> 60) BUN/Creatinine Ratio (6-26) Glucose (70-105) mg/dL Calculated Osmolality (280-300) Lactic Acid 2.7 H (0.5-2.2) mmol/L Calcium (8.6-10.3) mg/dL Magnesium (1.6-2.6) mg/dL Total Bilirubin (0.3-1.0) mg/dL Direct Bilirubin (0.0-0.2) mg/dL Indirect Bilirubin (0.0-1.2) mg/dL AST (13-39) Units/L ALT (7-52) Units/L Alkaline Phosphatase (34-104) Units/L Serum Total Protein (6.4-8.9) g/dL Albumin (3.5-5.7) g/dL Globulin (2.4-3.5) g/dL Albumin/Globulin Ratio (1.1-2.2) Lipase (11-82) Units/L Urine Color (Yellow) Urine Clarity (Clear) Urine pH (5.0-8.0) pH Units Ur Specific Gaines (1.010-1.025) Urine Protein (Neg-Trace) mg/dL Urine Glucose (UA) (Normal) mg/dL Urine Ketones (Negative) mg/dL Urine Blood (Negative) Urine Nitrite (Negative) Urine Bilirubin (Negative) Urine Urobilinogen (Normal) mg/dL Ur Leukocyte Esterase (Negative) Urine Microscopic RBC (0-3) per hpf Urine Microscopic WBC (0-3) per hpf Ur Squamous Epith Cells (None-Few) per lpf Urine Bacteria (None-Few) per hpf Hyaline Casts (None-Few) per lpf Urine Yeast (None Seen) per hpf Ur Culture Indicated? (NO) - Radiology Data Radiology results reviewed: Yes I reviewed the patient's radiology results. Abdomen/Pelvis CT 09/21/18 17:26 IMPRESSION: 1. Multiple gas bubbles within a partially distended urinary bladder concerning for underlying infection. There is also infiltration of the perinephric fat in the right kidney and adjacent to the renal pelvis concerning for infection. No hydronephrosis. Nonobstructive right-sided nephrolithiasis is again noted. 2. Stable changes of subtotal colectomy with right lower quadrant colostomy. No distended bowel loops or significant inflammatory changes. Stable parastomal hernia. 3. Hepatic steatosis. 4. Interval increase in size of right retrocrural lymph node, concerning for either metastatic disease or esophageal neoplasm. 5. Stable infiltration of the fat planes in the low pelvis, presumably post treatment change. D/ 09/21/2018 18:36:46 Jay Ferrara MD / damon Interpreting Provider: Jay Ferrara MD
[2018-09-21 18:25] LABS: Bilirubin,Urine Negative (Negative); Blood,Urine Large (Negative); Clarity,Urine Turbid (Clear); Color,Urine Yellow (Yellow); Glucose,Urine (UA) >=1000 mg/dL (Normal); Ketones,Urine Negative (Negative); Leukocyte Esterase,Urine Moderate (Negative); Nitrite,Urine Negative (Negative); Protein,Urine 100 mg/dL (Neg-Trace); Specific Gravity,Urine 1.027 (1.010-1.025); Urobilinogen,Urine Normal (Normal)
[2018-09-21 18:26] LABS: Bacteria,Urine Many per hpf (None-Few); Hyaline Casts,Urine Few per lpf (None-Few); RBC,Urine 0-3 per hpf (0-3); Squamous Epithelial Cell,Urine Many per lpf (None-Few); WBC,Urine TNTC per hpf (0-3)
[2018-09-21 18:32] LABS: Basophils # 0.1 K/mcL (0.0-0.2); Basophils % 0.4 %; Eosinophils % 0.1 %; Hematocrit 35.8 % (37.5-50.1); Hemoglobin 11.5 g/dL (12.9-16.9); Immature Granulocytes % 0.6 % (0-4); Lymphocytes # 0.5 K/mcL (0.6-4.6); Lymphocytes % 3.3 %; Mean Corpuscular HGB Conc 32.1 g/dL (31.6-35.5); Mean Corpuscular Hemoglobin 28.8 pg (28.0-33.3); Mean Corpuscular Volume 89.5 fL (83.0-100.0); Mean Platelet Volume 10.4 fL (9.4-12.4); Monocytes # 1.3 K/mcL (0.0-1.3); Monocytes % 8.9 %; Neutrophils # 12.6 K/mcL (1.6-8.9); Platelet Count 245 K/mcL (140-400); Segmented Neutrophils % 86.7 %
[2018-09-21] MEDS ORDERED: cefTRIAXone 2,000 MG in Water for inj. (sterile) 20 ML 20 ML IVP ONE (18:42)
[2018-09-21 18:48] LABS: Yeast,Urine Moderate per hpf (None Seen)
[2018-09-21 18:53] LABS: Albumin 3.2 g/dL (3.5-5.7); Albumin/Globulin Ratio 0.8 (1.1-2.2); Bilirubin,Direct 0.1 mg/dL (0.0-0.2); Bilirubin,Indirect 0.2 mg/dL (0.0-1.2); Bilirubin,Total 0.3 mg/dL (0.3-1.0); Calcium 8.8 mg/dL (8.6-10.3); Potassium 3.1 mEq/L (3.5-5.1); Total Protein 7.2 g/dL (6.4-8.9)
[2018-09-21 20:18] LABS: Magnesium 1.8 mg/dL (1.6-2.6)
[2018-09-21] MEDS: 0.9 % Sodium Chloride 1,000 ML IVC SCH (20:38)
[2018-09-21] MEDS ORDERED: Ondansetron 4 MG/2 ML VIAL IVP PRN (21:18)
[2018-09-21] MEDS ORDERED: *HR* Dextrose 50 % in Water (Syg) 50 ML SYRINGE IVP PRN (21:20)
[2018-09-21] MEDS ORDERED: D5% in Water 1,000 ML IVC PRN (21:20)
[2018-09-21] MEDS ORDERED: Dextrose Gel 15 GM/37.5 ML TUBE PO PRN ×2 (21:20)
[2018-09-21] MEDS: *HR* FentaNYL (PF) 100 MCG/2 ML VIAL IVP PRN (21:45)
[2018-09-21 22:13] LABS: Estimated Average Glucose 232 mg/dl; Hemoglobin A1C 9.7 %
[2018-09-22] MEDS ORDERED: Insulin LISPRO 300 UNITS/3 ML VIAL SQ SCH
[2018-09-22] MEDS: 0.9 % Sodium Chloride 1,000 ML IVC SCH ×4 (02:17→18:26)
[2018-09-22] MEDS: *HR* FentaNYL (PF) 100 MCG/2 ML VIAL IVP PRN (02:26)
[2018-09-22] MEDS ORDERED: *HR* Dextrose 50 % in Water (Syg) 50 ML SYRINGE IVP PRN (02:31)
[2018-09-22] MEDS ORDERED: D5% in Water 1,000 ML IVC PRN (02:31)
[2018-09-22] MEDS ORDERED: Dextrose Gel 15 GM/37.5 ML TUBE PO PRN ×2 (02:31)
[2018-09-22] MEDS ORDERED: Acetaminophen 325 MG TABLET PO PRN (02:31)
[2018-09-22] MEDS ORDERED: Naloxone 0.4 MG/ML INJ IVP PRN (02:31)
--- NOTE | 2018-09-22 03:24 | Internal Med History&Physical ---
Date of Encounter: 09/22/18 Time of Encounter: 01:50 Internal Medicine - H&P: HPI Chief complaint: flank pain; chills; sweats Admitted From: Emergency Dept Plans for Post Hospital Care: Home History of present illness: Mr. Mccain is a 72 year old male who presents to the ER today with complaints of sudden onset of flank pain, chills, diaphoresis, and nausea. Symptoms started about 1:00 yesterday afternoon and persisted throughout the day and have progressively worsened. He therefore came to the ER for evaluation. He was found to have evidence of pyelonephritis and sepsis. He received IV fluids, antibiotics, and was subsequently admitted to the hospitalist service thereafter. Upon my assessment of the patient, he appears to be clinically dehydrated. He is nontoxic. He does complain of right-sided flank pain rating anteriorly to his suprapubic area. He wears a chronic Graves catheter, which is changed mon ly. He has a history of prostate cancer and has had chronic urinary incontinence requiring chronic Graves use since then. Additionally, he had history of colon cancer with surgical resection, and he wears a colostomy bag. He has had multiple UTIs in the past, but he denies any prior kidney infec tions/pyelonephritis. He has had significant nausea and some vomiting. He denies any diarrhea. He has had subjective fevers yesterday but there are no fevers documented presently. He follows closely with his urologist, Dr. Huerta. Past Med Surg Social Fam HX - Past Medical History Attestation: Yes The following information was validated with the patient. Source: patient, old records reviewed Medical history: asthma, atrial fibrillation, cancer, DVT, diabetes, hyperlipidemia, hypertension Additional medical history: peptic ulcer disease. colon ca. prostate ca Psychiatric history: no psych history - Past Surgical History Surgical History: carotid endarterectomy, cholecystectomy, colectomy, colostomy (Sounds as though this was done as a diverting colostomy due to his prostate cancer and radiation.), prostatectomy, other Additional surgical history: perineal resection - Social History Smoking Status: Former smoker Smokeless Tobacco Status: No Alcohol use: none Drug use: none Current living situation: Home Activity Level: Independent ambulation - Family History Mother Living Status: Hx Family Cardiac Disorders: Yes (htn) Hx Family Respiratory Disorders: No Hx Family Cancer: No Hx Family GI Disorders: No Hx Family Endocrine Disorder: No Hx Family Neuromuscular Disorders: No Hx Family Neurologic Disorders: No Hx Family HEENT Disorders: No Hx Family Autoimmune Disorders: No Father Adopted: No Living Status: Hx Family Cardiac Disorders: Yes Hx Family Respiratory Disorders: No Hx Family Cancer: No Hx Family GI Disorders: No Hx Family Endocrine Disorder: No Hx Family Neuromuscular Disorders: No Hx Family Neurologic Disorders: No Hx Family HEENT Disorders: No Hx Family Autoimmune Disorders: No Internal Medicine - H&P: Meds Atorvastatin [Lipitor] 40 mg PO HS 07/15/18 [History] Docusate Sodium [Dok] 100 mg PO BID PRN 07/15/18 [History] Ferrous Sulfate 325 mg PO BID 07/15/18 [History] Fluticasone/Salmeterol [Advair Hfa 115-21 Mcg Inhaler] 2 puff IH BID 07/15/18 [History] Folic Acid 1 mg PO DAILY 07/15/18 [History] Metoprolol [Lopressor] 12.5 mg PO BID 07/15/18 [History] Ranitidine HCl [Acid Cable Reeler] 150 mg PO BID 07/15/18 [History] dilTIAZem HCl [Diltiazem 24Hr ER] 120 mg PO DAILY 07/15/18 [History] Glimepiride [Amaryl] 4 mg PO DAILY 07/16/18 [History] SitaGLIPtin [Januvia] 100 mg PO DAILY 07/16/18 [History] Warfarin [Coumadin] 1.5 mg PO MOTHSA@1800 07/18/18 [History] Warfarin [Coumadin] 3 mg PO SUTUWEFR@1800 07/18/18 [History] Amoxicillin/Clavulanate [Augmentin] 875 mg PO BIDWM 10 Days #20 tablet 07/19/18 [Rx] Allergy/AdvReac Type Severity Reaction Status Date / Time No Known Allergies Allergy Verified 07/15/18 21:22 - Constitutional Constitutional: chills, fatigue, fever(s) (subjective), night sweats - EENT Eyes: no blurry vision, no change in vision Ears: no ear pain, no tinnitus Nose, mouth and throat: no nasal congestion, no sinus pressure, no sore throat - Cardiovascular Cardiovascular ROS IM: no chest pain, no dyspnea, no orthopnea, no syncope - Respiratory Respiratory: no cough, no chest congestion, no excessive phlegm production, no change in phlegm color - Gastrointestinal Gastrointestinal: nausea, vomiting, no abdominal pain, no diarrhea, no hematemesis, no hematochezia, no melena - Genitourinary Genitourinary ROS male: dysuria, flank pain, no hematuria - Musculoskeletal Musculoskeletal ROS IM: back pain, no arthralgias - Integumentary Integumentary IM: no rash, no jaundice - Neurological Neurological ROS: no dizziness, no focal weakness, no frequent falls, no headache(s) - Psychiatric Psychiatric: no anxiety, no depression - Endocrine Endocrine IM: no polydipsia, no polyuria - Allergic/Immunologic Allergic/Immunologic: no wheezing, no GI upset with certain foods - Constitutional Vitals: Temp Pulse Resp BP Pulse Ox 98.3 F 80 15 142/76 97 09/22/18 00:43 09/22/18 00:43 09/21/18 21:33 09/22/18 00:43 09/22/18 00:43 General appearance: Present: cooperative, mild distress, A&O X 3, pleasant, answers questions appropriately Exam: ill-appearing; non-toxic; moderately dehydrated - Head Head exam: Present: atraumatic, normal inspection - Eye Eye exam: Present: EOMI, PERRL. Absent: scleral icterus Pupils: Present: normal accommodation - ENT ENT exam: Present: mucous membranes dry, normal exam, normal oropharynx - Neck Neck exam general surgery: Present: full ROM, supple. Absent: tenderness, nuchal rigidity, thyromegaly - Respiratory Respiratory exam: Present: CTAB. Absent: chest wall tenderness, rales, rhonchi, wheezes - Cardiovascular Cardiovascular exam: Present: distant heart sounds, RRR, +S1, +S2, systolic murmur. Absent: diastolic murmur - GI/Abdominal GI/Abdominal exam: Present: normal bowel sounds, soft, tenderness (supr apubically). Absent: mass, splenomegaly Additional comments: + colostomy bag - Extremities Exam Extremities exam: Present: full ROM, normal capillary refill, warm, radial pulses palpable and symmetrical. Absent: calf tenderness, pedal edema, tenderness - Back Exam Back exam: Present: CVA tenderness (R), normal inspection. Absent: CVA tenderness (L) - Neurological Exam Neurological exam: Present: alert, CN II-XII intact, oriented X3, strengths equal and symetr throughout - Psychiatric Psychiatric exam: Present: normal affect, normal mood - Skin Skin exam: Present: dry, intact, warm Internal Med - H&P Results - Labs CBC & Chem 7: 09/21/18 18:14 09/21/18 18:14 Labs: Short CBC 09/21/18 Range/Units 18:14 WBC 14.5 H (4.3-11.1) K/mcL Hgb 11.5 L (12.9-16.9) g/dL Hct 35.8 L (37.5-50.1) % Plt Count 245 (140-400) K/mcL Neutrophils # 12.6 H (1.6-8.9) K/mcL BMP 09/21/18 18:14 Sodium 129 L Potassium 3.1 L Chloride 94 L Carbon Dioxide 21 L BUN 31 H Creatinine 2.76 H Glucose 441 H Calcium 8.8 Liver Function 09/21/18 Range/Units 18:14 Total Bilirubin 0.3 (0.3-1.0) mg/dL Direct Bilirubin 0.1 (0.0-0.2) mg/dL AST 22 (13-39) Units/L ALT 12 (7-52) Units/L Alkaline Phosphatase 105 H (34-104) Units/L Albumin 3.2 L (3.5-5.7) g/dL Urine 09/21/18 Range/Units 18:13 Urine Color Yellow (Yellow) Urine Clarity Turbid A (Clear) Urine pH 5.0 (5.0-8.0) pH Units Ur Specific [place] 1.027 H (1.010-1.025) Urine Protein 100 H (Neg-Trace) mg/dL Urine Glucose (UA) >=1000 H (Normal) mg/dL - Impressions ITS Impressions Abdomen/Pelvis CT 09/21/18 17:26 IMPRESSION: 1. Multiple gas bubbles within a partially distended urinary bladder concerning for underlying infection. There is also infiltration of the perinephric fat in the right kidney and adjacent to the renal pelvis concerning for infection. No hydronephrosis. Nonobstructive right-sided nephrolithiasis is again noted. 2. Stable changes of subtotal colectomy with right lower quadrant colostomy. No distended bowel loops or significant inflammatory changes. Stable parastomal hernia. 3. Hepatic steatosis. 4. Interval increase in size of right retrocrural lymph node, concerning for either metastatic disease or esophageal neoplasm. 5. Stable infiltration of the fat planes in the low pelvis, presumably post treatment change. D/ / 09/21/2018 18:36:46 Jay Ferrara MD / damon Interpreting Provider: Jay Ferrara MD - Diagnostic Studies CT scan - abdomen Additional comments: Report reviewed: UTI/pyelonephritis finding noted; enlarged retrocrural lymph node concerning for metastatic disease - Assessment and plan (1) Sepsis Current Visit: Yes Status: Acute Assessment and plan: 1. Will trend lactate levels, monitor hemodynamics closely, and hydrate with IVF's. 2. Continue antibiotics for Graves catheter-related source of sepsis. 3. Follow blood cultures. 4. Urine culture not done in ER; I ordered one STAT. 5. Change Graves this admission. Qualifiers: Sepsis type: sepsis due to unspecified organism Qualified Code(s): A41.9 - Sepsis, unspecified organism (2) EUGENIO (acute kidney injury) Current Visit: Yes Status: Acute Assessment and plan: 1. IVF hydration. 2. Monitor renal function and I/O. 3. Consult nephrology if renal function does not improve. (3) UTI (urinary tract infection) Current Visit: Yes Status: Resolved Assessment and plan: 1. Catheter-related infection. 2. Continue antibiotics as above. 3. Follow cultures. Qualifiers: Urinary tract infection type: catheter-associated UTI Indwelling urinary catheter type: indwelling urethral catheter Encounter type: initial encounter Qualified Code(s): T83.511A - Infection and inflammatory reaction due to indwelling urethral catheter, initial encounter; N39.0 - Urinary tract infection, site not specified (4) Colon cancer Current Visit: Yes Status: Chronic Assessment and plan: 1. Consult oncology given finding on CT scan suggestive of metastatic disease and enlarging retrocrural lymph node. Qualifiers: Colon location: unspecified part of colon Qualified Code(s): C18.9 - Malignant neoplasm of colon, unspecified (5) DVT prophylaxis Current Visit: Yes Status: Acute Assessment and plan: 1. On Coumadin chronically. 2. Dosing per pharmacy for treatment of known DVT and paroxysmal atrial fibrillation.
[2018-09-22 04:12] LABS: Basophils # 0.1 K/mcL (0.0-0.2); Basophils % 0.4 %; Eosinophils # 0.1 K/mcL (0.0-0.6); Eosinophils % 0.4 %; Hemoglobin 10.1 g/dL (12.9-16.9); INR 3.6; Immature Granulocytes % 0.6 % (0-4); Lymphocytes # 0.5 K/mcL (0.6-4.6); Lymphocytes % 4.2 %; Mean Corpuscular HGB Conc 31.6 g/dL (31.6-35.5); Mean Corpuscular Hemoglobin 28.5 pg (28.0-33.3); Mean Corpuscular Volume 90.1 fL (83.0-100.0); Mean Platelet Volume 10.3 fL (9.4-12.4); Monocytes # 1.2 K/mcL (0.0-1.3); Monocytes % 9.7 %; Neutrophils # 10.6 K/mcL (1.6-8.9); Platelet Count 207 K/mcL (140-400); Prothrombin Time 40.9 Seconds (9.4-12.1); Red Blood Count 3.55 M/mcL (4.19-5.50); Red Cell Distribution Width 14.9 % (11.5-14.5); Segmented Neutrophils % 84.7 %
[2018-09-22 04:14] LABS: Activated Partial Thrombo Time 57.2 Seconds (26.0-36.0)
[2018-09-22 04:22] LABS: Albumin 2.6 g/dL (3.5-5.7); Albumin/Globulin Ratio 0.7 (1.1-2.2); Bilirubin,Total 0.2 mg/dL (0.3-1.0); Globulin 3.6 g/dL (2.4-3.5); Magnesium 1.6 mg/dL (1.6-2.6); Potassium 3.2 mEq/L (3.5-5.1); Total Protein 6.2 g/dL (6.4-8.9)
--- NOTE | 2018-09-22 07:36 | Urology - Consult Note ---
Date of Encounter: 09/22/18 Time of Encounter: 07:47 - Assessment and Plan (1) UTI (urinary tract infection) Current Visit: Yes Status: Acute Assessment and plan: 72-year-old man with concern for indwelling catheter and urinary tract infection is seen in consultation. Continue IV antibiotic and await results of urine culture. We will change out his catheter today. His urine is clear and there is no evidence of feculent drainage. Risk of fistula is unlikely. Urology will follow along. Qualifiers: Urinary tract infection type: site unspecified Hematuria presence: without hematuria Qualified Code(s): N39.0 - Urinary tract infection, site not specified (2) Hydronephrosis Current Visit: No Status: Acute Assessment and plan: I reviewed his CT scan. The left hydronephrosis is fairly mild. I think the acute kidney injury is more likely related to his recent infection. His creatinine is improving. We will hold off on retrograde pyelogram at this time. I anticipate his creatinine will improve with hydration. If his creatinine remains elevated, we can consider cystoscopy, left retrograde pyelogram and possible stent placement. Qualifiers: Hydronephrosis type: other Qualified Code(s): N13.39 - Other hydronephrosis (3) Prostate cancer Current Visit: No Status: Chronic Assessment and plan: I will check a PSA today. Urology CN:SUNG Consult date: 09/22/18 Reason for consult Urology: Hydronephrosis History of present illness: 72-year-old man with a history of prostate cancer status post prostatectomy was admitted for right flank pain. A CT scan showed evidence of gas within the bl adder. He has a long-term indwelling catheter. CT also showed some concern for stranding around the left kidney and possible left hydronephrosis. He denies any flank pain. He also has some evidence of acute kidney injury. His creatinine is improving from yesterday to today. He is on androgen deprivation therapy. He last had his catheter changed on 08/29/2018. He uses an 18-Faroese coude tip ped catheter. Past Med Surg Social Fam HX - Past Medical History Medical history: asthma, atrial fibrillation, cancer, DVT, diabetes, hyperlipidemia, hypertension Additional medical history: peptic ulcer disease. colon ca. prostate ca Psychiatric history: no psych history - Past Surgical History Surgical History: carotid endarterectomy, cholecystectomy, colectomy, colostomy (Sounds as though this was done as a diverting colostomy due to his prostate cancer and radiation.), prostatectomy, other Additional surgical history: perineal resection - Social History Smoking Status: Former smoker Smokeless Tobacco Status: No Alcohol use: none Drug use: none - Family History Mother Living Status: Hx Family Cardiac Disorders: Yes (htn) Hx Family Respiratory Disorders: No Hx Family Cancer: No Hx Family GI Disorders: No Hx Family Endocrine Disorder: No Hx Family Neuromuscular Disorders: No Hx Family Neurologic Disorders: No Hx Family HEENT Disorders: No Hx Family Autoimmune Disorders: No Father Adopted: No Living Status: Hx Family Cardiac Disorders: Yes Hx Family Respiratory Disorders: No Hx Family Cancer: No Hx Family GI Disorders: No Hx Family Endocrine Disorder: No Hx Family Neuromuscular Disorders: No Hx Family Neurologic Disorders: No Hx Family HEENT Disorders: No Hx Family Autoimmune Disorders: No Medications and Allergies Atorvastatin [Lipitor] 40 mg PO HS 07/15/18 [History] Docusate Sodium [Dok] 100 mg PO BID PRN 07/15/18 [History] Ferrous Sulfate 325 mg PO BID 07/15/18 [History] Fluticasone/Salmeterol [Advair Hfa 115-21 Mcg Inhaler] 2 puff IH BID 07/15/18 [History] Folic Acid 1 mg PO DAILY 07/15/18 [History] Metoprolol [Lopressor] 12.5 mg PO BID 07/15/18 [History] Ranitidine HCl [Acid Glass Glazier] 150 mg PO BID 07/15/18 [History] dilTIAZem HCl [Diltiazem 24Hr ER] 120 mg PO DAILY 07/15/18 [History] Glimepiride [Amaryl] 4 mg PO DAILY 07/16/18 [History] SitaGLIPtin [Januvia] 100 mg PO DAILY 07/16/18 [History] Warfarin [Coumadin] 1.5 mg PO MOWEFRSA 07/18/18 [History] Warfarin [Coumadin] 3 mg PO SUTUTH 07/18/18 [History] Allergy/AdvReac Type Severity Reaction Status Date / Time No Known Allergies Allergy Verified 07/15/18 21:22 Review of Systems - Constitutional no chills, no fever(s) - EENT Nose, mouth and throat: no dizziness - Cardiovascular no chest pain - Respiratory no dyspnea - Gastrointestinal no nausea, no vomiting - Genitourinary flank pain, no hematuria - Musculoskeletal no back pain - Integumentary no erythema, no rash - Neurological no weakness - Psychiatric no suicidal ideation - Hematologic/Lymphatic no easy bleeding - Allergic/Immunologic no wheezing Exam Initial Vital Signs Temp Pulse Resp BP Pulse Ox 97.9 F 79 20 150/85 100 09/21/18 17:12 09/21/18 17:12 09/21/18 17:12 09/21/18 17:12 09/21/18 17:12 - General physical appearance Present: well developed, well nourished, no distress - Eyes Absent: icteric - ENT Present: normal nares - Neck Present: trachea midline - Respiratory Present: normal respiratory effort - Cardiovascular Cardiovascular exam IM: RRR - Abdomen Abdomen: Present: soft - Genitourinary other (18-Faroese catheter in place with clear urine.) - Integumentary Present: no rash - Neurologic Present: normal coordination - Musculoskeletal Present: normal gait Urology Results - Labs 09/22/18 03:42 09/22/18 03:42 Abnormal lab results WBC 12.5 K/mcL (4.3-11.1) H 09/22/18 03:42 RBC 3.55 M/mcL (4.19-5.50) L 09/22/18 03:42 Hgb 10.1 g/dL (12.9-16.9) L 09/22/18 03:42 Hct 32.0 % (37.5-50.1) L 09/22/18 03:42 RDW 14.9 % (11.5-14.5) H 09/22/18 03:42 Neutrophils # 10.6 K/mcL (1.6-8.9) H 09/22/18 03:42 Lymphocytes # 0.5 K/mcL (0.6-4.6) L 09/22/18 03:42 PT 40.9 Seconds (9.4-12.1) H 09/22/18 03:42 APTT 57.2 Seconds (26.0-36.0) H 09/22/18 03:42 Potassium 3.2 mEq/L (3.5-5.1) L 09/22/18 03:42 Carbon Dioxide 20 mEq/L (23-29) L 09/22/18 03:42 BUN 29 mg/dL (8-23) H 09/22/18 03:42 Creatinine 2.37 mg/dL (0.70-1.30) H 09/22/18 03:42 Est GFR ( Amer) 33 (> 60) L 09/22/18 03:42 Est GFR (Non-Af Amer) 27 (> 60) L 09/22/18 03:42 Glucose 161 mg/dL (70-105) H 09/22/18 03:42 Hemoglobin A1c 9.7 % (-5.6) H 09/21/18 21:45 Calcium 8.0 mg/dL (8.6-10.3) L 09/22/18 03:42 Total Bilirubin 0.2 mg/dL (0.3-1.0) L 09/22/18 03:42 Serum Total Protein 6.2 g/dL (6.4-8.9) L 09/22/18 03:42 Albumin 2.6 g/dL (3.5-5.7) L 09/22/18 03:42 Globulin 3.6 g/dL (2.4-3.5) H 09/22/18 03:42 Albumin/Globulin Ratio 0.7 (1.1-2.2) L 09/22/18 03:42 Lipase 222 Units/L (11-82) H 09/21/18 18:14 Urine Clarity Turbid (Clear) A 09/21/18 18:13 Ur Specific [place] 1.027 (1.010-1.025) H 09/21/18 18:13 Urine Protein 100 mg/dL (Neg-Trace) H 09/21/18 18:13 Urine Glucose (UA) >=1000 mg/dL (Normal) H 09/21/18 18:13 Urine Blood Large (Negative) H 09/21/18 18:13 Ur Leukocyte Esterase Moderate (Negative) H 09/21/18 18:13 Urine Microscopic WBC TNTC per hpf (0-3) H 09/21/18 18:13 Ur Squamous Epith Cells Many per lpf (None-Few) H 09/21/18 18:13 Urine Bacteria Many per hpf (None-Few) H 09/21/18 18:13 Urine Yeast Moderate per hpf (None Seen) H 09/21/18 18:13 Ur Culture Indicated? NO. (NO) A 09/21/18 18:13 Diabetes panel 09/21/18 09/21/18 09/22/18 Range/Units 18:14 21:45 03:42 Sodium 129 L 138 D (136-145) mEq/L Potassium 3.1 L 3.2 L (3.5-5.1) mEq/L Chloride 94 L 107 (98-107) mEq/L Carbon Dioxide 21 L 20 L (23-29) mEq/L BUN 31 H 29 H (8-23) mg/dL Creatinine 2.76 H 2.37 H (0.70-1.30) mg/dL Glucose 441 H 161 H (70-105) mg/dL Hemoglobin A1c 9.7 H ( - 5.6) % Calcium 8.8 8.0 L (8.6-10.3) mg/dL AST 22 18 (13-39) Units/L ALT 12 10 (7-52) Units/L Alkaline Phosphatase 105 H 90 (34-104) Units/L Albumin 3.2 L 2.6 L (3.5-5.7) g/dL Calcium panel 09/21/18 09/22/18 Range/Units 18:14 03:42 Calcium 8.8 8.0 L (8.6-10.3) mg/dL Albumin 3.2 L 2.6 L (3.5-5.7) g/dL Pituitary panel 09/21/18 09/22/18 Range/Units 18:14 03:42 Sodium 129 L 138 D (136-145) mEq/L Potassium 3.1 L 3.2 L (3.5-5.1) mEq/L Chloride 94 L 107 (98-107) mEq/L Carbon Dioxide 21 L 20 L (23-29) mEq/L BUN 31 H 29 H (8-23) mg/dL Creatinine 2.76 H 2.37 H (0.70-1.30) mg/dL Glucose 441 H 161 H (70-105) mg/dL Calcium 8.8 8.0 L (8.6-10.3) mg/dL Adrenal panel 09/21/18 09/22/18 Range/Units 18:14 03:42 Sodium 129 L 138 D (136-145) mEq/L Potassium 3.1 L 3.2 L (3.5-5.1) mEq/L Chloride 94 L 107 (98-107) mEq/L Carbon Dioxide 21 L 20 L (23-29) mEq/L BUN 31 H 29 H (8-23) mg/dL Creatinine 2.76 H 2.37 H (0.70-1.30) mg/dL Glucose 441 H 161 H (70-105) mg/dL Calcium 8.8 8.0 L (8.6-10.3) mg/dL Total Bilirubin 0.3 0.2 L (0.3-1.0) mg/dL AST 22 18 (13-39) Units/L ALT 12 10 (7-52) Units/L Alkaline Phosphatase 105 H 90 (34-104) Units/L Albumin 3.2 L 2.6 L (3.5-5.7) g/dL All other labs normal. - Imaging CT scan - abdomen: report reviewed, image reviewed CT scan - pelvis: report reviewed, image reviewed Consult Discharge Plan - Plan Referrals: [place],Guillermo Preciado MD [Primary Care Provider] -
[2018-09-22] MEDS: cefTRIAXone 2,000 MG in Water for inj. (sterile) 20 ML 20 ML IVP SCH (10:08)
[2018-09-22] MEDS: Insulin LISPRO 300 UNITS/3 ML VIAL SQ SCH ×4 (10:10→21:54)
--- NOTE | 2018-09-22 10:11 | Oncology Inp Consult Note ---
<Roosevelt Schulte - Last Filed: 09/22/18 16:13> Date of Encounter: 09/22/18 Time of Encounter: 10:00 Assessment and Plan (1) History of colon cancer Status: Chronic Assessment and plan: Reported history of colon cancer s/p resection and colostomy. patient is unsure of dates, but reports initial cancer resection was decades ago. He does not follow with an oncologist. CT with increasing size retrocrural lymph node Interval increase in size of right retrocrural lymph node at 1.1 x 1.9 cm from 0.8 x 1.3 cm. Plan: Continue to follow [facility] Consider outpatient PET imaging, and possibly GI consult for EUS guided biopsy if indicated. (2) UTI (urinary tract infection) Status: Acute Assessment and plan: Acute UTI in the setting of urinary incontinence and frequent catheterization. History of multiple UTIs. Urinary incontinence since prostate cancer treatment, unsure of how he was treated, does not follow with oncologist. Symptoms persisting but improved since initiation of abx therapy. Qualifiers: Urinary tract infection type: catheter-associated UTI Indwelling urinary catheter type: indwelling urethral catheter Encounter type: initial encounter Qualified Code(s): T83.511A - Infection and inflammatory reaction due to indwelling urethral catheter, initial encounter; N39.0 - Urinary tract infection, site not specified (3) Renal failure (ARF), acute on chronic Status: Acute Assessment and plan: Acute worsening of renal failure believed to be due to dehydration and UTI. Urology following. Improved creatinine since admission. Qualifiers: Acute renal failure type: with other specified pathological lesion Chronic kidney disease stage: stage 3 (moderate) Qualified Code(s): N17.8 - Other acute kidney failure; N18.3 - Chronic kidney disease, stage 3 (moderate) (4) Prostate cancer Status: Chronic Assessment and plan: History of prostate cancer with urinary incontinence post treatment. PSA <0.01 - Data of Consult Patient: new to practice Consult date: 09/22/18 Requesting Physician: Bob Rock MD Primary Care Provider: Guillermo Garibay MD - Consult Narrative Reason for consult: Enlarging retrocrural lymph node, HX prostate and colon cancers History of present illness: Mr. Mccain is a 72 year old male with a history of colon cancer, prostate cancer, LLE DVT on warfarin, and diabetes. Presented yesterday afternoon to ED by EMS for evaluation of sudden onset right flank pain, chills, and nausea. Patient was seen and evaluated at the bedside. History is obtained from the patient and chart. He reports pain began yesterday at approx 1 pm and progressively worsened. He is feeling somewhat better today since initiation of abx. Some pain persists and radiates to suprapubic region. He reports chronic incontinence since prostate cancer treatments. He is unsure of what treatment he had. History of multiple UTIs. Admits to mild SOB with exertion. He lives at home and takes care of self with assistance of home health. He ambulates with a walker and wheel chair. Denies Weight loss, night sweats, visual changes, headache, bowel changes. Reports that initially had colectomy decades ago, unsure of when exactly, due to colon cancer. Reports that he had a recurrence and required further resection approx 2 years ago. Does not have an oncologist. Used to see Dr. Lowe at time of initial diagnosis. CT abdomen revealed enlarged right retrocrural lymph nodes. Oncology subsequently consulted. Past Med Surg Social Fam HX - Past Medical History Medical history: asthma, atrial fibrillation, cancer, DVT, diabetes, hyperlipidemia, hypertension Additional medical history: peptic ulcer disease. colon ca. prostate ca Psychiatric history: no psych history - Past Surgical History Surgical History: carotid endarterectomy, cholecystectomy, colectomy, colostomy (Sounds as though this was done as a diverting colostomy due to his prostate cancer and radiation.), prostatectomy, other Additional surgical history: perineal resection - Social History Smoking Status: Former smoker Smokeless Tobacco Status: No Alcohol use: none Drug use: none - Family History Father Adopted: No Living Status: Hx Family Cardiac Disorders: Yes Hx Family Respiratory Disorders: No Hx Family Cancer: No Hx Family GI Disorders: No Hx Family Endocrine Disorder: No Hx Family Neuromuscular Disorders: No Hx Family Neurologic Disorders: No Hx Family HEENT Disorders: No Hx Family Autoimmune Disorders: No Mother Living Status: Hx Family Cardiac Disorders: Yes (htn) Hx Family Respiratory Disorders: No Hx Family Cancer: No Hx Family GI Disorders: No Hx Family Endocrine Disorder: No Hx Family Neuromuscular Disorders: No Hx Family Neurologic Disorders: No Hx Family HEENT Disorders: No Hx Family Autoimmune Disorders: No Medications and Allergies RX: Atorvastatin [Lipitor] 40 mg PO HS 07/15/18 [History] RX: Docusate Sodium [Dok] 100 mg PO BID PRN 07/15/18 [History] RX: Ferrous Sulfate 325 mg PO BID 07/15/18 [History] RX: Fluticasone/Salmeterol [Advair Hfa 115-21 Mcg Inhaler] 2 puff IH BID 07/15/18 [History] RX: Folic Acid 1 mg PO DAILY 07/15/18 [History] RX: Metoprolol [Lopressor] 12.5 mg PO BID 07/15/18 [History] RX: Ranitidine HCl [Acid [employer]] 150 mg PO BID 07/15/18 [History] RX: dilTIAZem HCl [Diltiazem 24Hr ER] 120 mg PO DAILY 07/15/18 [History] RX: Glimepiride [Amaryl] 4 mg PO DAILY 07/16/18 [History] RX: SitaGLIPtin [Januvia] 100 mg PO DAILY 07/16/18 [History] RX: Warfarin [Coumadin] 1.5 mg PO MOWEFRSA 07/18/18 [History] RX: Warfarin [Coumadin] 3 mg PO SUTUTH 07/18/18 [History] Allergy/AdvReac Type Severity Reaction Status Date / Time No Known Allergies Allergy Verified 07/15/18 21:22 Constitutional: Present: fatigue. Absent: night sweats, weight loss Eyes: Absent: blurry vision, change in vision Nose, mouth and throat: Absent: dysphagia Cardiovascular: Present: dyspnea on exertion. Absent: chest pain Respiratory: Present: cough. Absent: hemoptysis Gastrointestinal: Present: abdominal pain. Absent: change in bowel habits Genitourinary: flank pain, urinary incontinence Integumentary: Present: dry skin Neurological: Absent: confusion, dizziness, headache(s) Hematologic/Lymphatic: Present: easy bleeding (on warfarin), easy bruising. Absent: lymphadenopathy Oncology - Exam - Constitutional Vitals: Temp Pulse Resp BP Pulse Ox 98 F 90 14 149/84 94 09/22/18 08:00 09/22/18 08:00 09/22/18 08:00 09/22/18 08:00 09/22/18 08:00 Exam: Appears stated age, chronically deconditioned - Head Head exam: Present: atraumatic, normocephalic - Eye Eye exam: Present: EOMI, conjuntiva pink Pupils: Present: PERRL - ENT ENT exam: Present: mucous membranes dry - Neck Neck exam: Present: full ROM. Absent: lymphadenopathy - Respiratory Respiratory exam: Present: CTAB - Cardiovascular Cardiovascular exam: Present: RRR, +S1, +S2 - GI/Abdominal GI/Abdominal exam: Present: normal bowel sounds, soft, tenderness (diffusely without localization) Additional comments: colostomy in place with soft stool - exam: Present: normal inspection Additional comments: marrufo catheter in place - Extremities Exam Extremities exam: Absent: calf tenderness Additional comments: evidence of lower extremity chronic venous stasis with discoloration and mild edema. Firm 4 x 3 cm mobile subcutaneous nodule of the right upper extremity. Mobile, firm to palpation, non tender. Reports this has been present for decades and is unchanged. - Back Exam Back exam: Present: normal inspection - Neurological Exam Neurological exam: Present: CN II-XII intact, oriented X3 Oncology - Results Labs: 09/22/18 09/22/18 09/22/18 08:00 03:42 03:42 WBC RBC Hgb Hct MCV MCH MCHC RDW Plt Count MPV Immature Gran % Seg Neutrophils % Lymphocytes % Monocytes % Eosinophils % Basophils % Neutrophils # Lymphocytes # Monocytes # Eosinophils # Basophils # PT INR APTT Sodium 138 D Potassium 3.2 L Chloride 107 Carbon Dioxide 20 L BUN 29 H Creatinine 2.37 H Est GFR ( Amer) 33 L Est GFR (Non-Af Amer) 27 L BUN/Creatinine Ratio 12 Glucose 161 H Est Mean Plasma Glucose Hemoglobin A1c Calculated Osmolality 295 Lactic Acid 0.9 Calcium 8.0 L Magnesium 1.6 Total Bilirubin 0.2 L Direct Bilirubin Indirect Bilirubin AST 18 ALT 10 Alkaline Phosphatase 90 Serum Total Protein 6.2 L Albumin 2.6 L Globulin 3.6 H Albumin/Globulin Ratio 0.7 L Lipase Prostate Specific Ag < 0.01 Urine Color Urine Clarity Urine pH Ur Specific [place] Urine Protein Urine Glucose (UA) Urine Ketones Urine Blood Urine Nitrite Urine Bilirubin Urine Urobilinogen Ur Leukocyte Esterase Urine Microscopic RBC Urine Microscopic WBC Ur Squamous Epith Cells Urine Bacteria Hyaline Casts Urine Yeast Ur Culture Indicated? 09/22/18 09/22/18 09/21/18 03:42 03:42 21:45 WBC 12.5 H RBC 3.55 L Hgb 10.1 L Hct 32.0 L MCV 90.1 MCH 28.5 MCHC 31.6 RDW 14.9 H Plt Count 207 MPV 10.3 Immature Gran % 0.6 Seg Neutrophils % 84.7 Lymphocytes % 4.2 Monocytes % 9.7 Eosinophils % 0.4 Basophils % 0.4 Neutrophils # 10.6 H Lymphocytes # 0.5 L Monocytes # 1.2 Eosinophils # 0.1 Basophils # 0.1 PT 40.9 H INR 3.6 APTT 57.2 H Sodium Potassium Chloride Carbon Dioxide BUN Creatinine Est GFR ( Amer) Est GFR (Non-Af Amer) BUN/Creatinine Ratio Glucose Est Mean Plasma Glucose 232 Hemoglobin A1c 9.7 H Calculated Osmolality Lactic Acid Calcium Magnesium Total Bilirubin Direct Bilirubin Indirect Bilirubin AST ALT Alkaline Phosphatase Serum Total Protein Albumin Globulin Albumin/Globulin Ratio Lipase Prostate Specific Ag Urine Color Urine Clarity Urine pH Ur Specific [place] Urine Protein Urine Glucose (UA) Urine Ketones Urine Blood Urine Nitrite Urine Bilirubin Urine Urobilinogen Ur Leukocyte Esterase Urine Microscopic RBC Urine Microscopic WBC Ur Squamous Epith Cells Urine Bacteria Hyaline Casts Urine Yeast Ur Culture Indicated? 09/21/18 09/21/18 09/21/18 18:14 18:14 18:14 WBC 14.5 H RBC 4.00 L Hgb 11.5 L Hct 35.8 L MCV 89.5 MCH 28.8 MCHC 32.1 RDW 15.0 H Plt Count 245 MPV 10.4 Immature Gran % 0.6 Seg Neutrophils % 86.7 Lymphocytes % 3.3 Monocytes % 8.9 Eosinophils % 0.1 Basophils % 0.4 Neutrophils # 12.6 H Lymphocytes # 0.5 L Monocytes # 1.3 Eosinophils # 0.0 Basophils # 0.1 PT INR APTT Sodium 129 L Potassium 3.1 L Chloride 94 L Carbon Dioxide 21 L BUN 31 H Creatinine 2.76 H Est GFR ( Amer) 28 L Est GFR (Non-Af Amer) 23 L BUN/Creatinine Ratio 11 Glucose 441 H Est Mean Plasma Glucose Hemoglobin A1c Calculated Osmolality 294 Lactic Acid 2.7 H Calcium 8.8 Magnesium 1.8 Total Bilirubin 0.3 Direct Bilirubin 0.1 Indirect Bilirubin 0.2 AST 22 ALT 12 Alkaline Phosphatase 105 H Serum Total Protein 7.2 Albumin 3.2 L Globulin 4.0 H Albumin/Globulin Ratio 0.8 L Lipase 222 H Prostate Specific Ag Urine Color Urine Clarity Urine pH Ur Specific [place] Urine Protein Urine Glucose (UA) Urine Ketones Urine Blood Urine Nitrite Urine Bilirubin Urine Urobilinogen Ur Leukocyte Esterase Urine Microscopic RBC Urine Microscopic WBC Ur Squamous Epith Cells Urine Bacteria Hyaline Casts Urine Yeast Ur Culture Indicated? 09/21/18 18:13 WBC RBC Hgb Hct MCV MCH MCHC RDW Plt Count MPV Immature Gran % Seg Neutrophils % Lymphocytes % Monocytes % Eosinophils % Basophils % Neutrophils # Lymphocytes # Monocytes # Eosinophils # Basophils # PT INR APTT Sodium Potassium Chloride Carbon Dioxide BUN Creatinine Est GFR ( Amer) Est GFR (Non-Af Amer) BUN/Creatinine Ratio Glucose Est Mean Plasma Glucose Hemoglobin A1c Calculated Osmolality Lactic Acid Calcium Magnesium Total Bilirubin Direct Bilirubin Indirect Bilirubin AST ALT Alkaline Phosphatase Serum Total Protein Albumin Globulin Albumin/Globulin Ratio Lipase Prostate Specific Ag Urine Color Yellow Urine Clarity Turbid A Urine pH 5.0 Ur Specific [place] 1.027 H Urine Protein 100 H Urine Glucose (UA) >=1000 H Urine Ketones Negative Urine Blood Large H Urine Nitrite Negative Urine Bilirubin Negative Urine Urobilinogen Normal Ur Leukocyte Esterase Moderate H Urine Microscopic RBC 0-3 Urine Microscopic WBC TNTC H Ur Squamous Epith Cells Many H Urine Bacteria Many H Hyaline Casts Few Urine Yeast Moderate H Ur Culture Indicated? NO. A Consult Discharge Plan - Plan Referrals: Guillermo Garibay MD [Primary Care Provider] - <Patrice Mock - Last Filed: 09/24/18 08:30> Date of Encounter: 09/22/18 - Data of Consult Requesting Physician: Surjit Bell MD Primary Care Provider: Guillermo Garibay MD - Consult Narrative History of present illness: Mr. Mccain is a 72 year old male Oncology - Exam - Constitutional Vitals: Temp Pulse Resp BP Pulse Ox 98 F 85 14 148/83 94 09/22/18 11:00 09/22/18 11:00 09/22/18 11:00 09/22/18 11:00 09/22/18 11:00 Oncology - Results Labs: 09/22/18 09/22/18 09/22/18 08:00 06:06 03:42 WBC RBC Hgb Hct MCV MCH MCHC RDW Plt Count MPV Immature Gran % Seg Neutrophils % Lymphocytes % Monocytes % Eosinophils % Basophils % Neutrophils # Lymphocytes # Monocytes # Eosinophils # Basophils # PT INR APTT Sodium Potassium Chloride Carbon Dioxide BUN Creatinine Est GFR ( Amer) Est GFR (Non-Af Amer) BUN/Creatinine Ratio Glucose POC Glucose 183 H Est Mean Plasma Glucose Hemoglobin A1c Calculated Osmolality Lactic Acid 0.9 Calcium Magnesium Total Bilirubin Direct Bilirubin Indirect Bilirubin AST ALT Alkaline Phosphatase Serum Total Protein Albumin Globulin Albumin/Globulin Ratio Lipase Prostate Specific Ag < 0.01 Urine Color Urine Clarity Urine pH Ur Specific [place] Urine Protein Urine Glucose (UA) Urine Ketones Urine Blood Urine Nitrite Urine Bilirubin Urine Urobilinogen Ur Leukocyte Esterase Urine Microscopic RBC Urine Microscopic WBC Ur Squamous Epith Cells Urine Bacteria Hyaline Casts Urine Yeast Ur Culture Indicated? 09/22/18 09/22/18 09/22/18 03:42 03:42 03:42 WBC 12.5 H RBC 3.55 L Hgb 10.1 L Hct 32.0 L MCV 90.1 MCH 28.5 MCHC 31.6 RDW 14.9 H Plt Count 207 MPV 10.3 Immature Gran % 0.6 Seg Neutrophils % 84.7 Lymphocytes % 4.2 Monocytes % 9.7 Eosinophils % 0.4 Basophils % 0.4 Neutrophils # 10.6 H Lymphocytes # 0.5 L Monocytes # 1.2 Eosinophils # 0.1 Basophils # 0.1 PT 40.9 H INR 3.6 APTT 57.2 H Sodium 138 D Potassium 3.2 L Chloride 107 Carbon Dioxide 20 L BUN 29 H Creatinine 2.37 H Est GFR ( Amer) 33 L Est GFR (Non-Af Amer) 27 L BUN/Creatinine Ratio 12 Glucose 161 H POC Glucose Est Mean Plasma Glucose Hemoglobin A1c Calculated Osmolality 295 Lactic Acid Calcium 8.0 L Magnesium 1.6 Total Bilirubin 0.2 L Direct Bilirubin Indirect Bilirubin AST 18 ALT 10 Alkaline Phosphatase 90 Serum Total Protein 6.2 L Albumin 2.6 L Globulin 3.6 H Albumin/Globulin Ratio 0.7 L Lipase Prostate Specific Ag Urine Color Urine Clarity Urine pH Ur Specific [place] Urine Protein Urine Glucose (UA) Urine Ketones Urine Blood Urine Nitrite Urine Bilirubin Urine Urobilinogen Ur Leukocyte Esterase Urine Microscopic RBC Urine Microscopic WBC Ur Squamous Epith Cells Urine Bacteria Hyaline Casts Urine Yeast Ur Culture Indicated? 09/22/18 09/21/18 09/21/18 00:47 21:45 18:14 WBC RBC Hgb Hct MCV MCH MCHC RDW Plt Count MPV Immature Gran % Seg Neutrophils % Lymphocytes % Monocytes % Eosinophils % Basophils % Neutrophils # Lymphocytes # Monocytes # Eosinophils # Basophils # PT INR APTT Sodium Potassium Chloride Carbon Dioxide BUN Creatinine Est GFR ( Amer) Est GFR (Non-Af Amer) BUN/Creatinine Ratio Glucose POC Glucose 225 H Est Mean Plasma Glucose 232 Hemoglobin A1c 9.7 H Calculated Osmolality Lactic Acid 2.7 H Calcium Magnesium Total Bilirubin Direct Bilirubin Indirect Bilirubin AST ALT Alkaline Phosphatase Serum Total Protein Albumin Globulin Albumin/Globulin Ratio Lipase Prostate Specific Ag Urine Color Urine Clarity Urine pH Ur Specific [place] Urine Protein Urine Glucose (UA) Urine Ketones Urine Blood Urine Nitrite Urine Bilirubin Urine Urobilinogen Ur Leukocyte Esterase Urine Microscopic RBC Urine Microscopic WBC Ur Squamous Epith Cells Urine Bacteria Hyaline Casts Urine Yeast Ur Culture Indicated? 09/21/18 09/21/18 09/21/18 18:14 18:14 18:13 WBC 14.5 H RBC 4.00 L Hgb 11.5 L Hct 35.8 L MCV 89.5 MCH 28.8 MCHC 32.1 RDW 15.0 H Plt Count 245 MPV 10.4 Immature Gran % 0.6 Seg Neutrophils % 86.7 Lymphocytes % 3.3 Monocytes % 8.9 Eosinophils % 0.1 Basophils % 0.4 Neutrophils # 12.6 H Lymphocytes # 0.5 L Monocytes # 1.3 Eosinophils # 0.0 Basophils # 0.1 PT INR APTT Sodium 129 L Potassium 3.1 L Chloride 94 L Carbon Dioxide 21 L BUN 31 H Creatinine 2.76 H Est GFR ( Amer) 28 L Est GFR (Non-Af Amer) 23 L BUN/Creatinine Ratio 11 Glucose 441 H POC Glucose Est Mean Plasma Glucose Hemoglobin A1c Calculated Osmolality 294 Lactic Acid Calcium 8.8 Magnesium 1.8 Total Bilirubin 0.3 Direct Bilirubin 0.1 Indirect Bilirubin 0.2 AST 22 ALT 12 Alkaline Phosphatase 105 H Serum Total Protein 7.2 Albumin 3.2 L Globulin 4.0 H Albumin/Globulin Ratio 0.8 L Lipase 222 H Prostate Specific Ag Urine Color Yellow Urine Clarity Turbid A Urine pH 5.0 Ur Specific [place] 1.027 H Urine Protein 100 H Urine Glucose (UA) >=1000 H Urine Ketones Negative Urine Blood Large H Urine Nitrite Negative Urine Bilirubin Negative Urine Urobilinogen Normal Ur Leukocyte Esterase Moderate H Urine Microscopic RBC 0-3 Urine Microscopic WBC TNTC H Ur Squamous Epith Cells Many H Urine Bacteria Many H Hyaline Casts Few Urine Yeast Moderate H Ur Culture Indicated? NO. A - Attending Attestation 1. History of colon cancer. He had subtotal colectomy maybe 30 years ago with a permanent colostomy in the right lower quadrant. He had revision surgery about 2 years ago but no evidence of recurrence We will continue to follow [facility] 2. History of prostate cancer. Looks like he had prostatectomy. His PSA was around 0.3 in 2014 currently less than 0.01. He has been getting Lupron injections through Dr. Huerta 3. He was admitted with UTI sepsis and some confusion. Mild left hydroneph rosis. Urology following 4. Acute kidney injury on top of chronic kidney disease stage III. Creatinine currently 2.5. His baseline creatinine is around 1.4. His creatinine was normal prior to [address] abdomen and pelvis showed about 2 cm retrocrural lymph node close to the esophagus. This shown mild and increased since June MRI. May consider a PET scan as an outpatient. Also EUS biopsy if needed. Likely this is unrelated to his colon cancer or prostate cancer Inpatient Charges Provider: Dr. Duarte Mock Consult - Inpatient: [id number]
[2018-09-22] MEDS: *HR* HYDROcodone/Acet 5/325 mg TABLET PO PRN (10:26)
--- NOTE | 2018-09-22 12:34 | Event Note ---
Date of Encounter: 09/22/18 Time of Encounter: 12:31 Patient seen and evaluated at bedside. reports flank pain. Denies shortness of breath, nausea or vomiting. Patient hemodynamically stable. continue IV antibiotics IV fuids decreased to 75mls/hr hypokalemia. electrolyte replaced.
[2018-09-22] MEDS ORDERED: *HR* OxyCODONE Immed Rel 5 MG TABLET PO PRN (12:51)
--- NOTE | 2018-09-22 14:31 | Event Note ---
Date of Encounter: 09/22/18 Time of Encounter: 14:00 Patient seen and examined lying in bed in no apparent distress. Catheter change completed by removing indwelling marrufo and replacing it with an 18F silicone coude catheter and new bedside bag under sterile technique at bedside. Immediate return of opaque yellow urine was observed. Patient tolerated well with no complications or concerns.
[2018-09-22] MEDS ORDERED: Warfarin perPT PO PRN (18:00)
[2018-09-22] MEDS: Diltiazem CD (24hr) 120 MG CAPSULE PO SCH (18:31)
[2018-09-22] MEDS: Budesonide/Formoterol 80/4.5 MDI IH SCH (19:52)
[2018-09-23] MEDS: *HR* HYDROcodone/Acet 5/325 mg TABLET PO PRN (04:55)
[2018-09-23 05:18] LABS: Basophils # 0.1 K/mcL (0.0-0.2); Basophils % 0.4 %; Eosinophils # 0.1 K/mcL (0.0-0.6); Eosinophils % 0.8 %; Hematocrit 32.9 % (37.5-50.1); Hemoglobin 10.2 g/dL (12.9-16.9); Immature Granulocytes % 0.7 % (0-4); Lymphocytes # 0.7 K/mcL (0.6-4.6); Lymphocytes % 5.5 %; Mean Corpuscular Hemoglobin 28.7 pg (28.0-33.3); Mean Corpuscular Volume 92.4 fL (83.0-100.0); Mean Platelet Volume 10.3 fL (9.4-12.4); Monocytes % 8.8 %; Neutrophils # 9.8 K/mcL (1.6-8.9); Platelet Count 243 K/mcL (140-400); Red Blood Count 3.56 M/mcL (4.19-5.50); Red Cell Distribution Width 15.2 % (11.5-14.5); Segmented Neutrophils % 83.8 %
[2018-09-23 05:24] LABS: INR 2.7; Prothrombin Time 30.5 Seconds (9.4-12.1)
[2018-09-23 05:36] LABS: Calcium 8.4 mg/dL (8.6-10.3); Potassium 3.4 mEq/L (3.5-5.1)
[2018-09-23] MEDS: 0.9 % Sodium Chloride 1,000 ML IVC SCH ×2 (07:23→21:10)
[2018-09-23] MEDS: Budesonide/Formoterol 80/4.5 MDI IH SCH ×2 (07:48→20:51)
[2018-09-23] MEDS: Insulin LISPRO 300 UNITS/3 ML VIAL SQ SCH ×4 (08:09→22:19)
[2018-09-23] MEDS: cefTRIAXone 2,000 MG in Water for inj. (sterile) 20 ML 20 ML IVP SCH (08:09)
[2018-09-23] MEDS: Diltiazem CD (24hr) 120 MG CAPSULE PO SCH (08:10)
--- NOTE | 2018-09-23 08:58 | Oncology Inp Progress Note ---
<Roosevelt Schulte Bouchra - Last Filed: 09/23/18 10:03> Date of Encounter: 09/23/18 Time of Encounter: 09:45 (1) History of colon cancer Current Visit: No Status: Chronic Assessment and plan: Reported history of colon cancer s/p resection and colostomy. patient is unsure of dates, but reports initial cancer resection was near 30 years ago. A revision colostomy was done 1.5 years ago, with no findings of recurrence on pathology. He does not follow with an oncologist. New CT abdomen with increasing size retrocrural lymph node Interval increase in size of right retrocrural lymph node at 1.1 x 1.9 cm from 0.8 x 1.3 cm. Plan: Continue to follow CEA Consider outpatient PET imaging, and possibly GI consult for EUS guided biopsy if indicated. (2) UTI (urinary tract infection) Current Visit: Yes Status: Acute Assessment and plan: Acute UTI in the setting of urinary incontinence and frequent catheterization. History of multiple UTIs. Urinary incontinence since prostate cancer treatment, s/p prostatectomy and Lupron, does not follow with oncologist. Symptoms persisting but improved since initiation of abx therapy. Qualifiers: Urinary tract infection type: catheter-associated UTI Indwelling urinary catheter type: indwelling urethral catheter Encounter type: initial encounter Qualified Code(s): T83.511A - Infection and inflammatory reaction due to indwelling urethral catheter, initial encounter; N39.0 - Urinary tract infection, site not specified (3) Renal failure (ARF), acute on chronic Current Visit: No Status: Acute Assessment and plan: Acute worsening of renal failure believed to be due to dehydration and UTI. Urology following. Improved creatinine since admission however is not yet at baseline. Qualifiers: Acute renal failure type: with other specified pathological lesion Chronic kidney disease stage: stage 3 (moderate) Qualified Code(s): N17.8 - Other acute kidney failure; N18.3 - Chronic kidney disease, stage 3 (moderate) (4) Prostate cancer Current Visit: No Status: Chronic Assessment and plan: History of prostate cancer with urinary incontinence post-prostatectomy. PSA <0.01, patient is on Lupron. Oncology: Subj Interval history: Patient seen and evaluated at the bedside. No new complaints. Reports improvement in right flank pain. Denies fever, chills, nausea, or vomiting. - Constitutional Vitals: Vital Signs Temp Pulse Resp BP Pulse Ox 09/23/18 08:17 93 09/23/18 07:48 16 93 09/23/18 07:27 98.0 F 91 145/76 92 09/23/18 04:29 100 18 151/77 95 09/23/18 01:35 97 16 144/78 94 09/22/18 19:53 16 95 09/22/18 18:43 98.2 F 95 15 146/95 97 09/22/18 16:26 98.1 F 88 146/106 94 09/22/18 11:00 98 F 85 14 148/83 94 Intake and Output 09/22/18 09/23/18 09/23/18 23:59 07:59 15:59 Intake Total 1000 / 1000 Output Total 200 / 200 1900 / 1900 Balance -200 / -200 -900 / -900 Intake: IV Fluids 1000 / 1000 0.9 % Sodium Chloride 1,000 ML 1000 / 1000 @ 75 mls/hr IVC .[id number] [facility] Rx #:[id number] Output: Stool 200 / 200 Catheter 1900 / 1900 Other: Weight 105.5 kg Blood Glucose* 306 277 Patient Weight 09/23/18 23:59 Weight 105.5 kg General appearance: no acute distress, obese - Head Head exam: Present: atraumatic, normocephalic - Eye Eye exam: Present: PERRL, conjuntiva pink - ENT ENT exam: Present: mucous membranes moist - Neck Neck exam: Present: full ROM. Absent: lymphadenopathy, tenderness - Respiratory Respiratory exam: Present: CTAB - Cardiovascular Cardiovascular exam: Present: RRR, +S1, +S2 - GI/Abdominal GI/Abdominal exam: Present: normal bowel sounds, soft, tenderness (diffuse mild tenderness to palpation). Absent: distended, rigid - exam: Present: normal inspection (with Graves catheter in place) - Extremities Exam Additional comments: Mild lower extremity edema bilaterally. Small areas of ecchymosis of the upper extremities. - Back Exam Back exam: Present: normal inspection. Absent: CVA tenderness (L), CVA tenderness (R) - Neurological Exam Neurological exam: Present: CN II-XII intact, oriented X3 - Skin Skin exam: Present: dry, intact, normal color Oncology: Obj Data - Labs CBC & Chem 7: 09/23/18 04:52 09/23/18 04:52 Labs: Laboratory Results - last 24 hr 09/22/18 09/22/18 09/22/18 00:47 06:06 08:08 WBC RBC Hgb Hct MCV MCH MCHC RDW Plt Count MPV Immature Gran % Seg Neutrophils % Lymphocytes % Monocytes % Eosinophils % Basophils % Neutrophils # Lymphocytes # Monocytes # Eosinophils # Basophils # PT INR Sodium Potassium Chloride Carbon Dioxide BUN Creatinine Est GFR ( Amer) Est GFR (Non-Af Amer) BUN/Creatinine Ratio Glucose POC Glucose 225 H 183 H 177 H Calculated Osmolality Calcium 09/22/18 09/22/18 09/22/18 11:23 18:39 20:57 WBC RBC Hgb Hct MCV MCH MCHC RDW Plt Count MPV Immature Gran % Seg Neutrophils % Lymphocytes % Monocytes % Eosinophils % Basophils % Neutrophils # Lymphocytes # Monocytes # Eosinophils # Basophils # PT INR Sodium Potassium Chloride Carbon Dioxide BUN Creatinine Est GFR ( Amer) Est GFR (Non-Af Amer) BUN/Creatinine Ratio Glucose POC Glucose 283 H 321 H 306 H Calculated Osmolality Calcium 09/23/18 09/23/18 09/23/18 04:52 04:52 04:52 WBC 11.7 H RBC 3.56 L Hgb 10.2 L Hct 32.9 L MCV 92.4 MCH 28.7 MCHC 31.0 L RDW 15.2 H Plt Count 243 MPV 10.3 Immature Gran % 0.7 Seg Neutrophils % 83.8 Lymphocytes % 5.5 Monocytes % 8.8 Eosinophils % 0.8 Basophils % 0.4 Neutrophils # 9.8 H Lymphocytes # 0.7 Monocytes # 1.0 Eosinophils # 0.1 Basophils # 0.1 PT 30.5 H INR 2.7 Sodium 135 L Potassium 3.4 L Chloride 107 Carbon Dioxide 16 L BUN 23 Creatinine 2.22 H Est GFR ( Amer) 36 L Est GFR (Non-Af Amer) 29 L BUN/Creatinine Ratio 10 Glucose 281 H POC Glucose Calculated Osmolality 294 Calcium 8.4 L - Impressions Impressions Abdomen/Pelvis CT 09/21/18 17:26 IMPRESSION: 1. Multiple gas bubbles within a partially distended urinary bladder concerning for underlying infection. There is also infiltration of the perinephric fat in the right kidney and adjacent to the renal pelvis concerning for infection. No hydronephrosis. Nonobstructive right-sided nephrolithiasis is again noted. 2. Stable changes of subtotal colectomy with right lower quadrant colostomy. No distended bowel loops or significant inflammatory changes. Stable parastomal hernia. 3. Hepatic steatosis. 4. Interval increase in size of right retrocrural lymph node, concerning for either metastatic disease or esophageal neoplasm. 5. Stable infiltration of the fat planes in the low pelvis, presumably post treatment change. D/ / 09/21/2018 18:36:46 Jay Ferrara MD / damon Interpreting Provider: Jay Ferrara MD - ABG Interpretation ABG results: PT/INR, D-dimer PT 30.5 Seconds (9.4-12.1) H 09/23/18 04:52 Consult Discharge Plan - Plan Referrals: Guillermo Garibay MD [Primary Care Provider] - <Patrice Mock S - Last Filed: 09/23/18 18:20> Date of Encounter: 09/23/18 - Constitutional Vitals: Vital Signs Temp Pulse Resp BP Pulse Ox 09/23/18 14:55 97.7 F 88 162/94 96 09/23/18 11:41 97.8 F 88 130/80 09/23/18 08:17 93 09/23/18 07:48 16 93 09/23/18 07:27 98.0 F 91 145/76 92 09/23/18 04:29 100 18 151/77 95 09/23/18 01:35 97 16 144/78 94 09/22/18 19:53 16 95 09/22/18 18:43 98.2 F 95 15 146/95 97 Intake and Output 09/23/18 09/23/18 09/23/18 07:59 15:59 23:59 Intake Total 1000 / 1000 260 / 260 Output Total 1900 / 1900 Balance -900 / -900 260 / 260 Intake: IV Fluids 1000 / 1000 0.9 % Sodium Chloride 1,000 ML 1000 / 1000 @ 75 mls/hr IVC .[id number] [facility] Rx #:[id number] Rocephin 2,000 MG In Water for 20 inj. (sterile) 20 ML @ 600 mls/ hr IVP Q24H [facility] Rx#:[id number] Oral 240 / 240 Output: Catheter 1900 / 1900 Other: Meal Breakfast Percent of Meal Consumed 100% Weight 105.5 kg Blood Glucose* 277 250 279 Patient Weight 09/23/18 23:59 Weight 105.5 kg Oncology: Obj Data - Labs CBC & Chem 7: 09/23/18 04:52 09/23/18 04:52 Labs: Laboratory Results - last 24 hr 09/22/18 09/22/18 09/22/18 08:08 11:23 18:39 WBC RBC Hgb Hct MCV MCH MCHC RDW Plt Count MPV Immature Gran % Seg Neutrophils % Lymphocytes % Monocytes % Eosinophils % Basophils % Neutrophils # Lymphocytes # Monocytes # Eosinophils # Basophils # PT INR Sodium Potassium Chloride Carbon Dioxide BUN Creatinine Est GFR ( Amer) Est GFR (Non-Af Amer) BUN/Creatinine Ratio Glucose POC Glucose 177 H 283 H 321 H Calculated Osmolality Calcium 09/22/18 09/23/18 09/23/18 20:57 04:52 04:52 WBC 11.7 H RBC 3.56 L Hgb 10.2 L Hct 32.9 L MCV 92.4 MCH 28.7 MCHC 31.0 L RDW 15.2 H Plt Count 243 MPV 10.3 Immature Gran % 0.7 Seg Neutrophils % 83.8 Lymphocytes % 5.5 Monocytes % 8.8 Eosinophils % 0.8 Basophils % 0.4 Neutrophils # 9.8 H Lymphocytes # 0.7 Monocytes # 1.0 Eosinophils # 0.1 Basophils # 0.1 PT 30.5 H INR 2.7 Sodium Potassium Chloride Carbon Dioxide BUN Creatinine Est GFR ( Amer) Est GFR (Non-Af Amer) BUN/Creatinine Ratio Glucose POC Glucose 306 H Calculated Osmolality Calcium 09/23/18 09/23/18 09/23/18 04:52 07:33 11:49 WBC RBC Hgb Hct MCV MCH MCHC RDW Plt Count MPV Immature Gran % Seg Neutrophils % Lymphocytes % Monocytes % Eosinophils % Basophils % Neutrophils # Lymphocytes # Monocytes # Eosinophils # Basophils # PT INR Sodium 135 L Potassium 3.4 L Chloride 107 Carbon Dioxide 16 L BUN 23 Creatinine 2.22 H Est GFR ( Amer) 36 L Est GFR (Non-Af Amer) 29 L BUN/Creatinine Ratio 10 Glucose 281 H POC Glucose 277 H 250 H Calculated Osmolality 294 Calcium 8.4 L 09/23/18 16:20 WBC RBC Hgb Hct MCV MCH MCHC RDW Plt Count MPV Immature Gran % Seg Neutrophils % Lymphocytes % Monocytes % Eosinophils % Basophils % Neutrophils # Lymphocytes # Monocytes # Eosinophils # Basophils # PT INR Sodium Potassium Chloride Carbon Dioxide BUN Creatinine Est GFR ( Amer) Est GFR (Non-Af Amer) BUN/Creatinine Ratio Glucose POC Glucose 279 H Calculated Osmolality Calcium - ABG Interpretation ABG results: PT/INR, D-dimer PT 30.5 Seconds (9.4-12.1) H 09/23/18 04:52 - Attending Attestation I examined this patient and my medical decision-making was reviewed with the Advanced Practice Nurse. I agree with the documented findings, disposition and treatment plan as described except to the extent set forth below. 1. Oncology consult for enlarging retrocrural lymph node 1.5-2 cm. This may be amenable for EUS and biopsy. May also consider PET scan as an outpatient. 2. Remote history of colon cancer. We will repeat CEA. CEA 3.5 in 2014. 3. Prostate cancer currently on Lupron through Dr. Toussaint. PSA suppressed below 0.01 on 09/22/2018 4. Acute on chronic kidney disease. Current creatinine around 2.2 in baseline around 1.5 5. Anemia. Multifactorial. Chronic kidney disease is playing a role. Lupron may be playing a role as well Iron levels normal. B12 borderline normal at 280. Folate TSH normal in the past
--- NOTE | 2018-09-23 10:26 | Urology Progress Note ---
Addendum entered and electronically signed by Pierce Henao MD 09/23/18 16:54: Patient was seen and examined with the physician's respiratory therapy assistant. I agree with the assessment and plan. His creatinine is improving. Urine culture was mixed. I would continue on antibiotic for now. We will follow the creatinine. PSA is okay today. Continue Graves catheter. Original Note: Date of Encounter: 09/23/18 Time of Encounter: 10:24 - Assessment and Plan (1) UTI (urinary tract infection) Current Visit: Yes Status: Acute Assessment and plan: Patient is a 72-year-old male who presents with a history of urinary tract infection. Patient has been placed on IV Rocephin. Vital signs are stable and afebrile. Urine is draining well and is clear. Urine culture is positive for mixed luiza. Blood cultures are pending. Qualifiers: Urinary tract infection type: site unspecified Hematuria presence: without hematuria Qualified Code(s): N39.0 - Urinary tract infection, site not specified (2) Hydronephrosis Current Visit: No Status: Acute Assessment and plan: Patient is 72-year-old male who presents the history of hydronephrosis. We discussed if renal function continued to decline, a possible retrograde pyel ogram and stent placement would be considered. At this time, creatinine has improved, and we will continue to follow. Qualifiers: Hydronephrosis type: other Qualified Code(s): N13.39 - Other hydronephrosis (3) Prostate cancer Current Visit: No Status: Chronic Assessment and plan: Patient is a 72-year-old male who presents the history of prostate cancer. PSA is pending. Progress Note Subjective: no new complaints, feels better Narrative: Patient seen and examined sitting upright in bed in no apparent distress. Patient is tolerating normal diet without nausea or vomiting. Patient denies catheter discomfort or feeling of obstruction. Graves catheter is indwelling and draining clear urine into bedside bag. Objective Initial Vital Signs Temp Pulse Resp BP Pulse Ox 97.9 F 79 20 150/85 100 09/21/18 17:12 09/21/18 17:12 09/21/18 17:12 09/21/18 17:12 09/21/18 17:12 - General physical appearance Present: well developed, well nourished, no distress, no pain - Respiratory Present: normal expansion, normal respiratory effort - Abdomen Present: soft, non tender - Genitourinary Urine Appearance: Present: Clear - Integumentary Present: no rash, no abnormal pigmentation - Musculoskeletal Present: normal posture - Psychiatric Present: oriented to time, oriented to person, oriented to place, speech is normal, memory intact - Labs 09/23/18 04:52 09/23/18 04:52 Diabetes panel 09/23/18 Range/Units 04:52 Sodium 135 L (136-145) mEq/L Potassium 3.4 L (3.5-5.1) mEq/L Chloride 107 (98-107) mEq/L Carbon Dioxide 16 L (23-29) mEq/L BUN 23 (8-23) mg/dL Creatinine 2.22 H (0.70-1.30) mg/dL Glucose 281 H (70-105) mg/dL Calcium 8.4 L (8.6-10.3) mg/dL Calcium panel 09/23/18 Range/Units 04:52 Calcium 8.4 L (8.6-10.3) mg/dL Pituitary panel 09/23/18 Range/Units 04:52 Sodium 135 L (136-145) mEq/L Potassium 3.4 L (3.5-5.1) mEq/L Chloride 107 (98-107) mEq/L Carbon Dioxide 16 L (23-29) mEq/L BUN 23 (8-23) mg/dL Creatinine 2.22 H (0.70-1.30) mg/dL Glucose 281 H (70-105) mg/dL Calcium 8.4 L (8.6-10.3) mg/dL Adrenal panel 09/23/18 Range/Units 04:52 Sodium 135 L (136-145) mEq/L Potassium 3.4 L (3.5-5.1) mEq/L Chloride 107 (98-107) mEq/L Carbon Dioxide 16 L (23-29) mEq/L BUN 23 (8-23) mg/dL Creatinine 2.22 H (0.70-1.30) mg/dL Glucose 281 H (70-105) mg/dL Calcium 8.4 L (8.6-10.3) mg/dL Consult Discharge Plan - Plan Referrals: Guillermo Garibay MD [Primary Care Provider] -
--- NOTE | 2018-09-23 12:22 | Internal Med Progress Note ---
Hospitalist Progress Note - Encounter Date of Encounter: 09/23/18 Time of Encounter: 12:20 - Subjective Interval History: Patient with history of asthma,atrial l fibrillation, DVT, diabetes, high cholesterol, hypertension, prostate cancer and colon cancer has a colostomy bag patient admitted with left flank pain nausea vomiting and some chills diagnosed with UTI mild left hydronephrosis he was seen by oncology patient also seen by urology and the plan is to continue observation with IV antibiotic and IV hydration and may decide on cystoscopy for possible stent placement follow-up today patient said he feels better no fever or chills creatinine has improved from 2.76-2.2 - Exam Vitals: Temp Pulse Resp BP Pulse Ox 97.8 F 88 16 130/80 93 09/23/18 11:41 09/23/18 11:41 09/23/18 07:48 09/23/18 11:41 09/23/18 08:17 Exam: ill-appearing; non-toxic; moderately dehydrated - Assessment and Plan (1) Nausea and vomiting Current Visit: No Status: Resolved Assessment and Plan: Resolved (2) Diabetes mellitus Current Visit: No Status: Chronic Assessment and Plan: Chronic we will continue on current sliding scale (3) Hypertension Current Visit: No Status: Chronic Assessment and Plan: Chronic and well controlled (4) DM type 2 (diabetes mellitus, type 2) Current Visit: No Status: Chronic (5) Sepsis Current Visit: No Status: Resolved (6) UTI (urinary tract infection) Current Visit: Yes Status: Acute Assessment and Plan: We will continue on Rocephin follow-up evaluation by neurology appreciated (7) Atrial fibrillation Current Visit: No Status: Chronic (8) EUGENIO (acute kidney injury) Current Visit: Yes Status: Acute Assessment and Plan: Likely due to UTI and dehydration hydronephrosis is mild will continue IV antibiotic and IV hydration - Time Spent with Patient Total time spent is greater than 50% in coordination of care (as documented) at patient's floor/unit and/or counseling patient: Internal Medicine: Result - Labs CBC & Chem 7: 09/23/18 04:52 09/23/18 04:52 Labs: Short CBC 09/23/18 Range/Units 04:52 WBC 11.7 H (4.3-11.1) K/mcL Hgb 10.2 L (12.9-16.9) g/dL Hct 32.9 L (37.5-50.1) % Plt Count 243 (140-400) K/mcL Neutrophils # 9.8 H (1.6-8.9) K/mcL BMP 09/23/18 04:52 Sodium 135 L Potassium 3.4 L Chloride 107 Carbon Dioxide 16 L BUN 23 Creatinine 2.22 H Glucose 281 H Calcium 8.4 L - ABG Interpretation ABG results: PT/INR, D-dimer PT 30.5 Seconds (9.4-12.1) H 09/23/18 04:52 - Impressions Impressions Abdomen/Pelvis CT 09/21/18 17:26 IMPRESSION: 1. Multiple gas bubbles within a partially distended urinary bladder concerning for underlying infection. There is also infiltration of the perinephric fat in the right kidney and adjacent to the renal pelvis concerning for infection. No hydronephrosis. Nonobstructive right-sided nephrolithiasis is again noted. 2. Stable changes of subtotal colectomy with right lower quadrant colostomy. No distended bowel loops or significant inflammatory changes. Stable parastomal hernia. 3. Hepatic steatosis. 4. Interval increase in size of right retrocrural lymph node, concerning for either metastatic disease or esophageal neoplasm. 5. Stable infiltration of the fat planes in the low pelvis, presumably post treatment change. D/ / 09/21/2018 18:36:46 Jay Ferrara MD / damon Interpreting Provider: Jay Ferrara MD Consult Discharge Plan - Plan Referrals: Guillermo gonsales MD [Primary Care Provider] - (1) Nausea and vomiting Qualifiers: Vomiting type: unspecified (2) Diabetes mellitus Qualifiers: Diabetes mellitus type: type 2 Diabetes mellitus longterm insulin use: without director long term care use Diabetes mellitus complication status: with unspecified complications Qualified Code(s): E11.8 - Type 2 diabetes mellitus with unspecified complications (3) Hypertension Qualifiers: Hypertension type: essential hypertension Qualified Code(s): I10 - Essential (primary) hypertension (4) DM type 2 (diabetes mellitus, type 2) Qualifiers: Diabetes mellitus director long term care insulin use: without director long term care use Diabetes mellitus complication status: without complication Qualified Code(s): E11.9 - Type 2 diabetes mellitus without complications (5) Sepsis Qualifiers: Sepsis type: sepsis due to unspecified organism Qualified Code(s): A41.9 - Sepsis, unspecified organism (6) UTI (urinary tract infection) Qualifiers: Urinary tract infection type: site unspecified Hematuria presence: without hematuria Qualified Code(s): N39.0 - Urinary tract infection, site not specified (7) Atrial fibrillation Qualifiers: Atrial fibrillation type: paroxysmal Qualified Code(s): I48.0 - Paroxysmal atrial fibrillation
[2018-09-23] MEDS ORDERED: *HR* Warfarin 2.5 MG TABLET PO ONE (18:00)
[2018-09-24 05:05] LABS: INR 2.2; Prothrombin Time 24.4 Seconds (9.4-12.1)
[2018-09-24 05:16] LABS: Calcium 8.3 mg/dL (8.6-10.3); Potassium 3.3 mEq/L (3.5-5.1)
[2018-09-24] MEDS: Insulin LISPRO 300 UNITS/3 ML VIAL SQ SCH ×4 (08:31→20:57)
--- NOTE | 2018-09-24 08:31 | Internal Med Progress Note ---
<Jessika Yadav - Last Filed: 09/24/18 14:26> Hospitalist Progress Note - Encounter Date of Encounter: 09/24/18 Time of Encounter: 08:27 - Subjective Interval History: 72M with hx of prostate cancer, Afib, HTN, CKD3, colon cancer, DM, LLE DVT on warfarin, presenting with RUQ Abd Pain on 09/21/18 to [facility] [place] [facility]. Dx with EUGENIO, UTI, sepsis, hydronephrosis, admitted for IV Abx. Urology consult, oncology consult. On Abx for UTI, trending Cr - today 2.07, down from 2.76 at admit. Potassium 3.3 today, up from 3.1 at admit. BC pending from 09/21/18, UC positive for mixed luiza from 09/22/18, on Ceftriaxone 1G daily. No acute events overnight, pt sitting comfortably in bed eating lunch during exam. ROS positive for exertional SOB, some nausea earlier with 2 episodes of "white mucousy" emesis. ROS otherwise negative. - Exam Vitals: Temp Pulse Resp BP Pulse Ox 98.2 F 81 15 151/73 94 09/24/18 06:57 09/24/18 06:57 09/24/18 06:57 09/24/18 06:57 09/24/18 06:57 Exam: Gen: well nourished obese male HENT: mucous membranes moist, non-scleral icterus, head normocephalic nontraumatic Cardio: Irregularly irregular, no m/r/g Pulm: CTAB, no wheezes/rales/ronchi Abd: Colostomy bag present in LLQ, filled with nonbloody, green feculent liquid. Soft, non-tender, non-rigid, no guarding/rebound Extremities: LLE has brown discoloration on lower medial side with skin flaking present, RLE without discoloration, rashes/erythema. Full ROM. Skin: Warm, dry, intact with exception of small ulcer present on LLE medial side, proximal to medial malleolus Neuro: Easily engaged in conversation, mentating well, A&O x 3, no facial droop - Assessment and Plan (1) UTI (urinary tract infection) Current Visit: Yes Status: Acute Assessment and Plan: -Present at admission - has chronic marrufo catheter in place - changed during this admission and replaced with coude catheter - UC showed mixed luiza - 1g rochephin - followed by urology (2) EUGENIO (acute kidney injury) Current Visit: Yes Status: Acute Assessment and Plan: CKD3 Baseline creatinine 1.4 Admit 2.76, today 2.07 Dehydration and UTI contributing will continue hydration and IV Abx (3) Diabetes mellitus Current Visit: No Status: Chronic Assessment and Plan: Low dose correction scale goal sugar <180 Admit A1c 9.7 Encourage control at d/c with outpt f/u (4) Hypertension Current Visit: No Status: Chronic Assessment and Plan: Most values have been <150/90 On diltiazem for Afib Add prn meds as needed continue to monitor DVT Prophylaxis: Pt on warfarin for Afib, last INR 2.2 this AM - Time Spent with Patient Total time spent is greater than 50% in coordination of care (as documented) at patient's floor/unit and/or counseling patient: less than 15 minutes Plan of Care Discussed with: patient Internal Medicine: Result - Labs CBC & Chem 7: 09/23/18 04:52 09/24/18 04:30 Labs: BMP 09/24/18 04:30 Sodium 137 Potassium 3.3 L Chloride 110 H Carbon Dioxide 19 L BUN 21 Creatinine 2.07 H Glucose 258 H Calcium 8.3 L - ABG Interpretation ABG results: PT/INR, D-dimer PT 24.4 Seconds (9.4-12.1) H 09/24/18 04:30 Consult Discharge Plan - Plan Referrals: Guillermo Garibay MD [Primary Care Provider] - <Johnathan Gautam - Last Filed: 09/24/18 15:19> Hospitalist Progress Note - Encounter Date of Encounter: 09/24/18 - Exam Vitals: Temp Pulse Resp BP Pulse Ox 97.9 F 86 15 141/73 93 09/24/18 11:07 09/24/18 11:07 09/24/18 11:07 09/24/18 11:07 09/24/18 11:07 - Assessment and Plan (1) Colon cancer Current Visit: Yes Status: Chronic (2) Acute renal failure Current Visit: Yes Status: Suspected Assessment and Plan: from obstruction (3) EUGEINO (acute kidney injury) Current Visit: Yes Status: Acute (4) UTI (urinary tract infection) Current Visit: Yes Status: Acute (5) Sepsis Current Visit: Yes Status: Resolved (6) DVT prophylaxis Current Visit: Yes Status: Acute (7) Chronic diastolic CHF (congestive heart failure) Current Visit: No Status: Chronic (8) Diabetes Current Visit: No Status: Chronic (9) Atrial fibrillation Current Visit: No Status: Chronic (10) Hypertension Current Visit: No Status: Chronic - Time Spent with Patient Total time spent is greater than 50% in coordination of care (as documented) at patient's floor/unit and/or counseling patient: Internal Medicine: Result - Labs CBC & Chem 7: 09/23/18 04:52 09/24/18 04:30 Labs: BMP 09/24/18 04:30 Sodium 137 Potassium 3.3 L Chloride 110 H Carbon Dioxide 19 L BUN 21 Creatinine 2.07 H Glucose 258 H Calcium 8.3 L - ABG Interpretation ABG results: PT/INR, D-dimer PT 24.4 Seconds (9.4-12.1) H 09/24/18 04:30 - Attending Attestation I examined this patient and my medical decision-making was reviewed with the Resident Physician on 09/24/18. I agree with the documented findings, disposition and treatment plan as described except to the extent set forth below. Mr Mccain is currently admitted for CAUTI - present on admission. He remains moderate to high risk due to potential for worsening clinical status. Mr Mccain is having some back pain from sitting up in chair. No fever or chills. No CP or SOB. No GI issues. Wants to go home. Exam alert Comfortable Mucus membranes dry Heart not tachy No wheeze at this time Abd soft and nontender Moves all extremities I/P 1. CAUTI - present on admit. On abx. 2. Acute renal failure - slowly improving. Monitor tonight and anticipate d/c tomorrow if stable. Further diagnoses and plan as above. __ <Jessika Yadav Bushra - Last Filed: 09/24/18 14:26> (1) UTI (urinary tract infection) Qualifiers: Urinary tract infection type: catheter-associated UTI Indwelling urinary catheter type: indwelling urethral catheter Encounter type: subsequent encounter Qualified Code(s): T83.511D - Infection and inflammatory reaction due to indwelling urethral catheter, subsequent encounter; N39.0 - Urinary tract infection, site not specified (3) Diabetes mellitus Qualifiers: Diabetes mellitus type: type 2 Diabetes mellitus assisted insulin use: without assisted use Diabetes mellitus complication status: with unspecified complications Qualified Code(s): E11.8 - Type 2 diabetes mellitus with unspecified complications (4) Hypertension Qualifiers: Hypertension type: essential hypertension Qualified Code(s): I10 - Essential (primary) hypertension <Johnathan Gautam - Last Filed: 09/24/18 15:19> (1) Colon cancer Qualifiers: Colon location: unspecified part of colon Qualified Code(s): C18.9 - Malignant neoplasm of colon, unspecified (2) Acute renal failure Qualifiers: Acute 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 Qualified Code(s): N17.2 - Acute kidney failure with medullary necrosis (4) UTI (urinary tract infection) Qualifiers: Urinary tract infection type: catheter-associated UTI Indwelling urinary catheter type: indwelling urethral catheter Encounter type: subsequent encoun ter Qualified Code(s): T83.511D - Infection and inflammatory reaction due to indwelling urethral catheter, subsequent encounter; N39.0 - Urinary tract infection, site not specified (5) Sepsis Qualifiers: Sepsis type: sepsis due to unspecified organism Qualified Code(s): A41.9 - Sepsis, unspecified organism (8) Diabetes Qualifiers: Diabetes mellitus type: type 2 Diabetes mellitus assisted insulin use: without watermaster use Diabetes mellitus complication status: without complication Qualified Code(s): E11.9 - Type 2 diabetes mellitus without complications (9) Atrial fibrillation Qualifiers: Atrial fibrillation type: chronic Qualified Code(s): I48.2 - Chronic atrial fibrillation (10) Hypertension Qualifiers: Hypertension type: essential hypertension Qualified Code(s): I10 - Essential (primary) hypertension
[2018-09-24] MEDS: Diltiazem CD (24hr) 120 MG CAPSULE PO SCH (08:32)
[2018-09-24] MEDS: cefTRIAXone 2,000 MG in Water for inj. (sterile) 20 ML 20 ML IVP SCH (08:32)
--- NOTE | 2018-09-24 09:12 | Urology Progress Note ---
Addendum entered and electronically signed by Pierce Henao MD 09/24/18 12:48: Patient seen and examined with the PA. Agree with assessment and plan. Urology will sign off today. He can follow up with Dr. Huerta to continue with routine catheter changes. Original Note: Date of Encounter: 09/24/18 Time of Encounter: 08:50 - Assessment and Plan (1) UTI (urinary tract infection) Current Visit: Yes Status: Acute Assessment and plan: Patient is a 72-year-old male with a chronic indwelling Graves catheter presents the history of urinary tract infection. Urine culture was positive for mixed luiza. Patient is placed on IV Rocephin. Vital signs are stable and afebrile. Qualifiers: Qualified Code(s): N39.0 - Urinary tract infection, site not specified (2) Hydronephrosis Current Visit: No Status: Acute Assessment and plan: Patient is a 72-year-old male who presents the history of hydronephrosis. At this time, renal function seems to be improving, and we will continue to follow creatinine. There is no surgical intervention indicated at this time. Qualifiers: Qualified Code(s): N13.39 - Other hydronephrosis (3) Prostate cancer Current Visit: No Status: Chronic Assessment and plan: Patient is a 72-year-old male who presents the history of prostate cancer. There is a small retroperitoneal lymph node identified on CT scan. Dr. Henao has reviewed PSA. Progress Note Subjective: no new complaints, feels better Narrative: Patient seen and examined sitting upright in chair eating breakfast with at bedside. Patient denies no new concerns. Patient states Graves catheter is comfortable and draining well. Patient denies fever, chills, flank pain, gross hematuria. Objective Initial Vital Signs Temp Pulse Resp BP Pulse Ox 97.9 F 79 20 150/85 100 09/21/18 17:12 09/21/18 17:12 09/21/18 17:12 09/21/18 17:12 09/21/18 17:12 - General physical appearance Present: well developed, well nourished, no distress, no pain - Respiratory Present: normal expansion, normal respiratory effort - Abdomen Present: soft, non tender - Genitourinary Urine Appearance: Present: Clear - Integumentary Present: no rash, no abnormal pigmentation - Musculoskeletal Present: normal posture - Psychiatric Present: oriented to time, oriented to person, oriented to place, speech is normal, memory intact - Labs 09/23/18 04:52 09/24/18 04:30 Diabetes panel 09/24/18 Range/Units 04:30 Sodium 137 (136-145) mEq/L Potassium 3.3 L (3.5-5.1) mEq/L Chloride 110 H (98-107) mEq/L Carbon Dioxide 19 L (23-29) mEq/L BUN 21 (8-23) mg/dL Creatinine 2.07 H (0.70-1.30) mg/dL Glucose 258 H (70-105) mg/dL Calcium 8.3 L (8.6-10.3) mg/dL Calcium panel 09/24/18 Range/Units 04:30 Calcium 8.3 L (8.6-10.3) mg/dL Pituitary panel 09/24/18 Range/Units 04:30 Sodium 137 (136-145) mEq/L Potassium 3.3 L (3.5-5.1) mEq/L Chloride 110 H (98-107) mEq/L Carbon Dioxide 19 L (23-29) mEq/L BUN 21 (8-23) mg/dL Creatinine 2.07 H (0.70-1.30) mg/dL Glucose 258 H (70-105) mg/dL Calcium 8.3 L (8.6-10.3) mg/dL Adrenal panel 09/24/18 Range/Units 04:30 Sodium 137 (136-145) mEq/L Potassium 3.3 L (3.5-5.1) mEq/L Chloride 110 H (98-107) mEq/L Carbon Dioxide 19 L (23-29) mEq/L BUN 21 (8-23) mg/dL Creatinine 2.07 H (0.70-1.30) mg/dL Glucose 258 H (70-105) mg/dL Calcium 8.3 L (8.6-10.3) mg/dL Consult Discharge Plan - Plan Referrals: Guillermo Garibay MD [Primary Care Provider] -
[2018-09-24] MEDS: *HR* HYDROcodone/Acet 5/325 mg TABLET PO PRN (09:35)
[2018-09-24] MEDS ORDERED: Potassium Chloride Elixir 20 MEQ/15 ML UDC PO ONE (09:46)
[2018-09-24 09:58] LABS: Magnesium 1.5 mg/dL (1.6-2.6)
[2018-09-24] MEDS: Budesonide/Formoterol 80/4.5 MDI IH SCH ×2 (10:22→20:08)
[2018-09-24] MEDS: 0.9 % Sodium Chloride 1,000 ML IVC SCH (11:00)
[2018-09-24] MEDS: Famotidine 20 MG TABLET PO SCH (17:14)
[2018-09-24] MEDS ORDERED: *HR* Warfarin 3 MG TABLET PO ONE (18:00)
[2018-09-25] MEDS: 0.9 % Sodium Chloride 1,000 ML IVC SCH (01:01)
[2018-09-25 05:08] LABS: Basophils # 0.1 K/mcL (0.0-0.2); Basophils % 0.7 %; Eosinophils # 0.2 K/mcL (0.0-0.6); Hematocrit 29.6 % (37.5-50.1); Hemoglobin 9.3 g/dL (12.9-16.9); Immature Granulocytes % 1.2 % (0-4); Lymphocytes # 0.7 K/mcL (0.6-4.6); Lymphocytes % 9.9 %; Mean Corpuscular HGB Conc 31.4 g/dL (31.6-35.5); Mean Corpuscular Volume 92.2 fL (83.0-100.0); Monocytes # 0.7 K/mcL (0.0-1.3); Monocytes % 9.5 %; Neutrophils # 5.5 K/mcL (1.6-8.9); Platelet Count 272 K/mcL (140-400); Red Blood Count 3.21 M/mcL (4.19-5.50); Red Cell Distribution Width 15.3 % (11.5-14.5); Segmented Neutrophils % 75.7 %
[2018-09-25 05:18] LABS: Prothrombin Time 23.1 Seconds (9.4-12.1)
[2018-09-25 05:26] LABS: Calcium 8.2 mg/dL (8.6-10.3); Potassium 3.7 mEq/L (3.5-5.1)
[2018-09-25 07:05] LABS: Magnesium 1.4 mg/dL (1.6-2.6)
[2018-09-25] MEDS: Budesonide/Formoterol 80/4.5 MDI IH SCH (07:58)
[2018-09-25] MEDS: Insulin LISPRO 300 UNITS/3 ML VIAL SQ SCH ×3 (08:03→18:09)
[2018-09-25] MEDS ORDERED: cefTRIAXone 1,000 MG in Water for inj. (sterile) 20 ML 10 ML IVP SCH (09:00)
[2018-09-25] MEDS ORDERED: Folic Acid 1 MG TABLET PO SCH (09:00)
--- NOTE | 2018-09-25 09:03 | Urology Progress Note ---
Date of Encounter: 09/25/18 Time of Encounter: 08:45 - Assessment and Plan (1) UTI (urinary tract infection) Current Visit: Yes Status: Acute Assessment and plan: Patient is a 72-year-old male who presents with an indwelling Graves catheter and significant history of prostate cancer, urinary tract infection and hydronephrosis. Renal function has returned to baseline. There was concern for catheter leaking around urethral meatus. Patient states he is unsure if the catheter was pulled on displacing it into the prostate. There is no hematuria observed. I asked patient bear down and cough, and there was no urinary leakage observed. Patient is being prepared for discharge today. He will follow up routinely for catheter maintenance and will call if any concerns arise sooner. Qualifiers: Urinary tract infection type: catheter-associated UTI Indwelling urinary catheter type: indwelling urethral catheter Encounter type: subsequent enco unter Qualified Code(s): T83.511D - Infection and inflammatory reaction due to indwelling urethral catheter, subsequent encounter; N39.0 - Urinary tract infection, site not specified (2) Hydronephrosis Current Visit: No Status: Acute Qualifiers: Hydronephrosis type: other Qualified Code(s): N13.39 - Other hydronephrosis (3) Prostate cancer Current Visit: No Status: Chronic Progress Note Narrative: Patient seen and examined sitting upright in bed in no apparent distress. Patient reports catheter was leaking last night after coughing. Nurse deflated Graves balloon and advanced Graves catheter filling it with 20 mL of fluid. P atient reports no further leakage or catheter discomfort. Urine is clear and draining into bedside bag. Objective Initial Vital Signs Temp Pulse Resp BP Pulse Ox 97.9 F 79 20 150/85 100 09/21/18 17:12 09/21/18 17:12 09/21/18 17:12 09/21/18 17:12 09/21/18 17:12 - General physical appearance Present: well developed, no distress, no pain - Respiratory Present: normal expansion, normal respiratory effort - Abdomen Present: soft, non tender - Genitourinary Urine Appearance: Present: Clear - Integumentary Present: no rash, no abnormal pigmentation - Musculoskeletal Present: normal posture - Psychiatric Present: oriented to time, oriented to person, oriented to place, speech is normal, memory intact - Labs 09/25/18 04:35 09/25/18 04:35 Diabetes panel 09/24/18 09/25/18 Range/Units 04:30 04:35 Sodium 137 139 (136-145) mEq/L Potassium 3.3 L 3.7 (3.5-5.1) mEq/L Chloride 110 H 113 H (98-107) mEq/L Carbon Dioxide 19 L 16 L (23-29) mEq/L BUN 21 19 (8-23) mg/dL Creatinine 2.07 H 1.82 H (0.70-1.30) mg/dL Glucose 258 H 265 H (70-105) mg/dL Calcium 8.3 L 8.2 L (8.6-10.3) mg/dL Calcium panel 09/24/18 09/25/18 Range/Units 04:30 04:35 Calcium 8.3 L 8.2 L (8.6-10.3) mg/dL Pituitary panel 09/24/18 09/25/18 Range/Units 04:30 04:35 Sodium 137 139 (136-145) mEq/L Potassium 3.3 L 3.7 (3.5-5.1) mEq/L Chloride 110 H 113 H (98-107) mEq/L Carbon Dioxide 19 L 16 L (23-29) mEq/L BUN 21 19 (8-23) mg/dL Creatinine 2.07 H 1.82 H (0.70-1.30) mg/dL Glucose 258 H 265 H (70-105) mg/dL Calcium 8.3 L 8.2 L (8.6-10.3) mg/dL Adrenal panel 09/24/18 09/25/18 Range/Units 04:30 04:35 Sodium 137 139 (136-145) mEq/L Potassium 3.3 L 3.7 (3.5-5.1) mEq/L Chloride 110 H 113 H (98-107) mEq/L Carbon Dioxide 19 L 16 L (23-29) mEq/L BUN 21 19 (8-23) mg/dL Creatinine 2.07 H 1.82 H (0.70-1.30) mg/dL Glucose 258 H 265 H (70-105) mg/dL Calcium 8.3 L 8.2 L (8.6-10.3) mg/dL Consult Discharge Plan - Plan Referrals: Guillermo Garibay MD [Primary Care Provider] -
[2018-09-25] MEDS: Famotidine 20 MG TABLET PO SCH (10:28)
[2018-09-25] MEDS: Diltiazem CD (24hr) 120 MG CAPSULE PO SCH (10:29)
--- NOTE | 2018-09-25 10:41 | Discharge Summary ---
<Jessika Yadav - Last Filed: 09/25/18 15:26> - NOTES TO OUTPATIENT PROVIDER Notes to Outpatient Provider: 1. Pt was admitted for CAUTI at admission, treated with 5 days of 1g Ceftriaxone, followed by Urology who recommends f/u with their office for routine catheter maintenance or sooner if concerns arise. 2. Pt was placed on Oxybutynin 5mg TID PRN as needed for bladder spasm as this may be contributing to leakage around the catheter. Pt was given a 7 day supply at discharge. Orders not resulted at time of discharge: Pending orders 09/21/18 19:46 Culture,Blood [BC] Stat 09/22/18 02:31 ECG 12 lead ECG [ECG] Routine 09/26/18 04:00 Basic Metabolic Panel AM 0400 Complete Blood Count [HEME] AM 0400 09/27/18 04:00 Basic Metabolic Panel AM 0400 Complete Blood Count [HEME] AM 0400 09/28/18 04:00 Basic Metabolic Panel AM 0400 Complete Blood Count [HEME] AM 0400 09/29/18 04:00 Basic Metabolic Panel AM 0400 Complete Blood Count [HEME] AM 0400 09/30/18 04:00 Basic Metabolic Panel AM 0400 Complete Blood Count [HEME] AM 0400 Date of Encounter: 09/25/18 Time of Encounter: 10:41 - Discharge Diagnosis (1) UTI (urinary tract infection) Priority: Primary Status: Acute Assessment and Plan: Pt was admitted with CAUTI and treated with 5 days of Ceftriaxone, followed by Urology, who recommends outpt routine catheter maintenance or f/u earlier if needed. Qualifiers: Urinary tract infection type: catheter-associated UTI Indwelling urinary catheter type: indwelling urethral catheter Encounter type: subsequent encounter Qualified Code(s): T83.511D - Infection and inflammatory reaction d ue to indwelling urethral catheter, subsequent encounter; N39.0 - Urinary tract infection, site not specified (2) EUGENIO (acute kidney injury) Priority: Secondary Status: Acute Assessment and Plan: Pt has CKD3, baseline Creatinine 1.4, admitted with Cr 2.76. Cr at discharge 1.82. Continue to monitor outpatient. (3) Diabetes mellitus Priority: Secondary Status: Chronic Qualifiers: Diabetes mellitus type: type 2 Diabetes mellitus custodial insulin use: without chimney construction supervisor use Diabetes mellitus complication status: with unspecified complications Qualified Code(s): E11.8 - Type 2 diabetes mellitus with unspecified complications (4) Hypertension Priority: Secondary Status: Chronic Assessment and Plan: Most values have been <150/90 On diltiazem for Afib Add prn meds as needed continue to monitor Qualifiers: Hypertension type: essential hypertension Qualified Code(s): I10 - Essential (primary) hypertension Hospital course: Mr. Mccain is a 72 year old male admitted with pre-existing CAUTI and catheter problems. Catheter was replaced by Urology at bedside. Pt received 5 days of IV Rocephin 1g each day and was felt well enough to go home on 09/25/18. During the morning of discharge, he experienced some leakage around his catheter when standing so catheter was advanced and balloon was injected with an additional 5mL of fluid. There was one episode of leakage after this, but upon re- examination at 1530, there was no leakage noted either supine or upon standing. Urology was consulted and they felt that this was due to bladder spasm and suggested he be sent home with oxybutynin 5mg Q8 PRN as long as bladder scan showed no evidence of urine in the bladder. Discharge discussed with: patient Time spent discussing smoking cessation with patient: 3 to 10 minutes - Time Spent with Patient Total time spent providing and/or coordinating discharge services: Less than 30 minutes - Discharge Medications Prescriptions: Oxybutynin [Ditropan] 5 mg PO TID #21 tablet Home Medications: Atorvastatin [Lipitor] 40 mg PO HS 07/15/18 [History] Docusate Sodium [Dok] 100 mg PO BID PRN 07/15/18 [History] Ferrous Sulfate 325 mg PO BID 07/15/18 [History] Fluticasone/Salmeterol [Advair Hfa 115-21 Mcg Inhaler] 2 puff IH BID 07/15/18 [History] Folic Acid 1 mg PO DAILY 07/15/18 [History] Metoprolol [Lopressor] 12.5 mg PO BID 07/15/18 [History] Ranitidine HCl [Acid Rice Farmworker] 150 mg PO BID 07/15/18 [History] dilTIAZem HCl [Diltiazem 24Hr ER] 120 mg PO DAILY 07/15/18 [History] Glimepiride [Amaryl] 4 mg PO DAILY 07/16/18 [History] SitaGLIPtin [Januvia] 100 mg PO DAILY 07/16/18 [History] Warfarin [Coumadin] 1.5 mg PO MOWEFRSA 07/18/18 [History] Warfarin [Coumadin] 3 mg PO SUTUTH 07/18/18 [History] Oxybutynin [Ditropan] 5 mg PO TID #21 tablet 09/25/18 [Rx] Allergies/Adverse Reactions: Allergy/AdvReac Type Severity Reaction Status Date / Time No Known Allergies Allergy Verified 07/15/18 21:22 Date of admission: 09/22/18 02:31 Primary care physician: Guillermo Garibay MD Consults: 09/21/18 19:16 Consult to Urology [CONS] Stat Consulting Provider: [facility] Reason for Consult: UTI, BUBBLES IN BLADDER, EUGENIO Time Notified: 19:16 Call Completed: Yes 09/21/18 22:02 Consult to Nutrition [CONS] Routine Comment: Consulting Provider: NUTRITION Reason for Dietary Consult: Other 09/22/18 02:36 Consult to Physician [CONS] Routine Consulting Provider: Pierce Henao Reason for Consult: prostate CA; chronic Graves; pyelonephritis Call Completed: Yes 09/22/18 03:44 Consult to Oncology [CONS] Routine Consulting Provider: [facility] [place] Reason for Consult: colon cancer and prostate cancer now with enlarging retrocrural lymph node concerning for metastatic disease. Call Completed: No - Constitutional Vitals: Temp Pulse Resp BP Pulse Ox 98.1 F 81 17 152/74 94 09/25/18 06:38 09/25/18 06:38 09/25/18 06:38 09/25/18 06:38 09/25/18 06:38 General appearance: Present: cooperative, mild distress, A&O X 3, pleasant, answers questions appropriately Exam: Gen: well nourished obese male HENT: mucous membranes moist, non-scleral icterus, head normocephalic nontraumatic Cardio: Irregularly irregular, no m/r/g Pulm: CTAB, no wheezes/rales/ronchi Abd: Colostomy bag present in LLQ, filled with nonbloody, green feculent liquid. Soft, non-tender, non-rigid, no guarding/rebound Extremities: LLE has brown discoloration on lower medial side with skin flaking present, RLE without discoloration, rashes/erythema. Full ROM. Skin: Warm, dry, intact with exception of small ulcer present on LLE medial si de, proximal to medial malleolus Neuro: Easily engaged in conversation, mentating well, A&O x 3, no facial droop Catheter: Catheter in place, no evidence of erosion, no leakage around catheter, no leakage upon standing or moving. Bag contains cloudy fluid. - Patient Status Disposition: Home, Self-Care Condition: Fair Overall status at discharge: patient is progressing back to baseline - Ambulatory Orders Ambulatory Orders: PET CT skull to thigh DX/initi [PE] Time Frame: 10/01/18, Facility: [facility], Location: Radiology - Discharge Instructions Follow Up With: Guillermo Garibay MD [Primary Care Provider] - 10/02/18 2:00 pm Pierce Henao MD [Partnered Physician] - 10/06/18 2:15 pm (patient has already scheduled apt will do follow up then) - Diet and Activity Activity: as per physical therapy Diet: diabetic diet <Johnathan Gautam - Last Filed: 09/25/18 17:21> Orders not resulted at time of discharge: Pending orders 09/21/18 19:46 Culture,Blood [BC] Stat 09/26/18 04:00 Basic Metabolic Panel AM 0400 Complete Blood Count [HEME] AM 0400 09/27/18 04:00 Basic Metabolic Panel AM 0400 Complete Blood Count [HEME] AM 0400 09/28/18 04:00 Basic Metabolic Panel AM 0400 Complete Blood Count [HEME] AM 0400 09/29/18 04:00 Basic Metabolic Panel AM 0400 Complete Blood Count [HEME] AM 0400 09/30/18 04:00 Basic Metabolic Panel AM 0400 Complete Blood Count [HEME] AM 0400 Date of Encounter: 09/25/18 - Discharge Diagnosis (1) Colon cancer Priority: Secondary Status: Chronic Qualifiers: Colon location: unspecified part of colon Qualified Code(s): C18.9 - Malignant neoplasm of colon, unspecified (2) Acute renal failure Priority: Primary Status: Suspected Qualifiers: Acute 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 Qualified Code(s): N17.2 - Acute kidney failure with medullary necrosis (3) EUGENIO (acute kidney injury) Status: Acute (4) UTI (urinary tract infection) Priority: Primary Status: Resolved Qualifiers: Urinary tract infection type: catheter-associated UTI Indwelling urinary catheter type: indwelling urethral catheter Encounter type: subsequent encounter Qualified Code(s): T83.511D - Infection and inflammatory reaction due to indwelling urethral catheter, subsequent encounter; N39.0 - Urinary tract infection, site not specified (5) Sepsis Priority: Secondary Status: Resolved Qualifiers: Sepsis type: sepsis due to unspecified organism Qualified Code(s): A41.9 - Sepsis, unspecified organism (6) DVT prophylaxis Priority: Secondary Status: Acute (7) Chronic diastolic CHF (congestive heart failure) Priority: Secondary Status: Chronic (8) Diabetes Priority: Secondary Status: Chronic Qualifiers: Diabetes mellitus type: type 2 Diabetes mellitus custodial insulin use: without chimney construction supervisor use Diabetes mellitus complication status: without complication Qualified Code(s): E11.9 - Type 2 diabetes mellitus without complications (9) Atrial fibrillation Priority: Secondary Status: Chronic Qualifiers: Atrial fibrillation type: chronic Qualified Code(s): I48.2 - Chronic atrial fibrillation (10) Hypertension Status: Chronic Qualifiers: Hypertension type: essential hypertension Qualified Code(s): I10 - Essential (primary) hypertension (11) Decubitus ulcer Priority: Secondary Status: Chronic Assessment and Plan: Bilateral Qualifiers: Pressure injury location: buttock Pressure injury stage: stage 2 Laterality: unspecified laterality Qualified Code(s): L89.302 - Pressure ulcer of unspecified buttock, stage 2 Hospital course: Mr. Mccain is a 72 year old male 37min - Time Spent with Patient Total time spent providing and/or coordinating discharge services: Date of admission: 09/22/18 02:31 Primary care physician: Guillermo Garibay MD Consults: 09/21/18 19:16 Consult to Urology [CONS] Stat Consulting Provider: U[facility] Reason for Consult: UTI, BUBBLES IN BLADDER, EUGENIO Time Notified: 19:16 Call Completed: Yes 09/21/18 22:02 Consult to Nutrition [CONS] Routine Comment: Consulting Provider: NUTRITION Reason for Dietary Consult: Other 09/22/18 02:36 Consult to Physician [CONS] Routine Consulting Provider: Pierce Henao Reason for Consult: prostate CA; chronic Graves; pyelonephritis Call Completed: Yes 09/22/18 03:44 Consult to Oncology [CONS] Routine Consulting Provider: [facility] Reason for Consult: colon cancer and prostate cancer now with enlarging retr ocrural lymph node concerning for metastatic disease. Call Completed: No - Constitutional Vitals: Temp Pulse Resp BP Pulse Ox 97.8 F 79 12 140/77 97 09/25/18 15:20 09/25/18 15:20 09/25/18 15:20 09/25/18 15:20 09/25/18 15:20 - Attending Attestation I examined this patient and my medical decision-making was reviewed with the Resident Physician on 09/25/18. I agree with the documented findings, disposition and treatment plan as described except to the extent set forth below. Mr Mccain has been admitted for sepsis related to acute CAUTI. He is now afebrile and ready for discharge. He has received IV abx and will complete course of PO. He has had some bladder spasms and has been started on Oxybutinin. Exam alert comfortable Mucus membranes dry Heart reg No wheeze abd soft Plan D/C home today.
[2018-09-25 15:23] VITALS: BP 140/77
--- NOTE | 2018-09-25 17:24 | Physician Discharge Referral ---
Home Health/Hosp Referral Info Transfer to: Home Health Provider in Charge Post Discharge: PCP - Diagnosis (1) Colon cancer Priority: Secondary Status: Chronic (2) Acute renal failure Priority: Secondary Status: Suspected (3) EUGENIO (acute kidney injury) Priority: Secondary Status: Resolved (4) UTI (urinary tract infection) Priority: Primary Status: Resolved (5) Sepsis Priority: Secondary Status: Resolved (6) Chronic diastolic CHF (congestive heart failure) Priority: Secondary Status: Chronic (7) Diabetes Priority: Secondary Status: Chronic (8) Atrial fibrillation Priority: Secondary Status: Chronic (9) Hypertension Priority: Secondary Status: Chronic (10) Decubitus ulcer Priority: Secondary Status: Chronic - Respiratory Orders None Smoking Cessation: Smoking cessation has been advised. For more information, call the [place] Tobacco Quit Line at 1-229-NHYY-NOW. - Diet/Nutrition Diet/Nutrition Orders: Cardiac, No Concentrated Sweets - Activity Activity Orders: Up ad hailey, Ambulate - Services Needed Following services are medically necessary services: Nursing, Physical Therapy, Occupational Therapy - Transfer Medications Prescriptions: Oxybutynin [Ditropan] 5 mg PO TID #21 tablet Home Medications: Atorvastatin [Lipitor] 40 mg PO HS 07/15/18 [History] Docusate Sodium [Dok] 100 mg PO BID PRN 07/15/18 [History] Ferrous Sulfate 325 mg PO BID 07/15/18 [History] Fluticasone/Salmeterol [Advair Hfa 115-21 Mcg Inhaler] 2 puff IH BID 07/15/18 [History] Folic Acid 1 mg PO DAILY 07/15/18 [History] Metoprolol [Lopressor] 12.5 mg PO BID 07/15/18 [History] Ranitidine HCl [Acid Manager Dish] 150 mg PO BID 07/15/18 [History] dilTIAZem HCl [Diltiazem 24Hr ER] 120 mg PO DAILY 07/15/18 [History] Glimepiride [Amaryl] 4 mg PO DAILY 07/16/18 [History] SitaGLIPtin [Januvia] 100 mg PO DAILY 07/16/18 [History] Warfarin [Coumadin] 1.5 mg PO MOWEFRSA 07/18/18 [History] Warfarin [Coumadin] 3 mg PO SUTUTH 07/18/18 [History] Oxybutynin [Ditropan] 5 mg PO TID #21 tablet 09/25/18 [Rx] Allergies/Adverse Reactions: Allergy/AdvReac Type Severity Reaction Status Date / Time No Known Allergies Allergy Verified 07/15/18 21:22 Certification: Further, I certify that my clinical findings support that this patient is homebound (i.e. absences from home require considerable and taxing effort and are for medical reasons or hindu services or infrequently or short duration when for other reasons) because: Homebound Reason: Patient requires assistance of a person or device to safely leave home, Severity of cardiac or pulmonary status limits activity tolerance Attestation: My signature below is to certify that this patient is under my care and that I, or nurse practitioner, or a physician's child and youth program assistant working with me, has a [id number] encounter with this patient.
[2018-09-25] MEDS ORDERED: *HR* Warfarin 3 MG TABLET PO SCH (18:00)
[2018-09-26] MEDS ORDERED: Famotidine 20 MG TABLET PO SCH (09:00)
== END 2018-09-25 18:28 | disposition home or self-care (01) | DRG 698 ==
LOC: 2NENU 17:08 → EMEROOARM 17:08 → 2NENU 20:48 → SUATTDRO 09-22 02:31
PROVIDERS: ADMIT Pediatrics; ATTEND Internal Medicine

== ENCOUNTER 2019-11-27 07:52 | Inpatient (IN) ==
[2019-11-27] MEDS ORDERED: Albuterol 2.5 MG/3 ML NEBULIZER IH PRN (08:36)
[2019-11-27] MEDS ORDERED: CeFAZolin Syr 2,000MG/20 ML 2,000 MG/20 ML SYRINGE IVPB ONE (08:36)
[2019-11-27] MEDS ORDERED: MetroNIDAZOLE 500 MG/100 ML 500 MG/100 ML BAG IVPB ONE (08:37)
[2019-11-27] MEDS ORDERED: Ringers Solution, Lactated 1,000 ML IVC SCH ×2 (08:45→15:54)
[2019-11-27] MEDS ORDERED: *HR* FentaNYL (PF) 100 MCG/2 ML VIAL ONE (09:01)
[2019-11-27] MEDS ORDERED: *HR* Propofol 200 MG/20 ML VIAL IVP ONE (09:01)
[2019-11-27] MEDS ORDERED: *HR* Midazolam HCl 2 MG/2 ML VIAL ONE (09:01)
[2019-11-27] MEDS ORDERED: *HR* Rocuronium Bromide 50 MG/5 ML VIAL ONE (09:03)
[2019-11-27] MEDS ORDERED: Lidocaine -MPF 2% 2 ML VIAL ONE (09:03)
[2019-11-27] MEDS ORDERED: Lidocaine -MPF 4% 5 ML AMPUL ONE (09:03)
[2019-11-27] MEDS ORDERED: Dexamethasone 4 MG/ML VIAL ONE (09:03)
[2019-11-27] MEDS ORDERED: *HR* Succinylcholine 200 MG/10 ML VIAL IVP ONE (09:03)
[2019-11-27] MEDS ORDERED: *HR* OxyCODONE Immed Rel 5 MG TABLET PO PRN ×2 (09:04→15:54)
[2019-11-27] MEDS ORDERED: Ondansetron 4 MG/2 ML VIAL IVP ONE (09:04)
[2019-11-27] MEDS ORDERED: cefOXitin 1,000 MG, Sodium Chloride IRRigation 1,000 ML IR ONE (09:50)
[2019-11-27] MEDS ORDERED: *HR* PHENYLEPHRINE 1,000 MCG/10 ML SYRINGE IVP ONE (10:41)
[2019-11-27] MEDS ORDERED: *HR* Metoprolol 5 MG/5 ML VIAL IVP ONE (11:52)
[2019-11-27] MEDS ORDERED: CefOXitin 2,000 MG VIAL ONE (12:03)
[2019-11-27] MEDS ORDERED: Neostigmine Methylsulfate 3 MG/3 ML SYRINGE ONE (12:51)
[2019-11-27] MEDS ORDERED: *HR* HYDROMORPHONE 2 MG/ML VIAL ONE (13:08)
[2019-11-27] MEDS: *HR* HYDROmorphone (PF) 1 MG/ML SYRINGE IVP PRN ×4 (13:27→13:55)
[2019-11-27] MEDS ORDERED: Naloxone 0.4 MG/ML INJ IVP PRN (15:54)
[2019-11-27 17:09] LABS: Basophils % 0.3 %
[2019-11-27 17:11] LABS: Basophils # 0.1 K/mcL (0.0-0.2); Hematocrit 30.8 % (37.5-50.1); Hemoglobin 9.8 g/dL (12.9-16.9); Immature Granulocytes % 0.5 % (0-4); Lymphocytes # 0.3 K/mcL (0.6-4.6); Lymphocytes % 1.2 %; Mean Corpuscular HGB Conc 31.8 g/dL (31.6-35.5); Mean Corpuscular Hemoglobin 28.7 pg (28.0-33.3); Mean Corpuscular Volume 90.3 fL (83.0-100.0); Monocytes # 1.5 K/mcL (0.0-1.3); Monocytes % 5.8 %; Neutrophils # 24.1 K/mcL (1.6-8.9); Platelet Count 412 K/mcL (140-400); Red Blood Count 3.41 M/mcL (4.19-5.50); Red Cell Distribution Width 16.7 % (11.5-14.5); Segmented Neutrophils % 92.2 %; White Blood Count 26.1 K/mcL (4.3-11.1)
[2019-11-27 17:13] LABS: Calcium 8.2 mg/dL (8.6-10.3); Potassium 3.7 mEq/L (3.5-5.1)
[2019-11-27 17:54] LABS: Platelet Estimate Normal (Normal)
[2019-11-27] MEDS: Ringers Solution, Lactated 1,000 ML IVC SCH (18:05)
[2019-11-27] MEDS: *HR* Glimepiride 4 MG TABLET PO SCH (18:05)
[2019-11-27 18:38] LABS: INR 1.3
[2019-11-27] MEDS: Insulin LISPRO 300 UNITS/3 ML VIAL SQ SCH ×2 (19:41→21:19)
[2019-11-27] MEDS: Famotidine 20 MG TABLET PO SCH (20:03)
[2019-11-27] MEDS: Budesonide/Formoterol 80/4.5 1 PUFF INH IH SCH (20:10)
[2019-11-27] MEDS: Piperacillin/Tazobactam 3.375 GM in 0.9 % Sodium Chloride Mini Bag 100 ML IVPB SCH (23:00)
[2019-11-28 05:40] LABS: Bilirubin,Urine Negative (Negative); Blood,Urine Large (Negative); Clarity,Urine Turbid (Clear); Color,Urine Yellow (Yellow); Glucose,Urine (UA) 100 mg/dL (Normal); Ketones,Urine Negative (Negative); Leukocyte Esterase,Urine Large (Negative); Nitrite,Urine Negative (Negative); Protein,Urine 100 mg/dL (Neg-Trace); Specific Gravity,Urine 1.014 (1.010-1.025); Urobilinogen,Urine Normal (Normal)
[2019-11-28 05:43] LABS: Bacteria,Urine Many per hpf (None-Few); Hyaline Casts,Urine None Seen per lpf (None-Few); Squamous Epithelial Cell,Urine Many per lpf (None-Few); WBC,Urine TNTC per hpf (0-3)
[2019-11-28 06:03] LABS: Basophils % 0.2 %; Hematocrit 29.2 % (37.5-50.1); Hemoglobin 9.1 g/dL (12.9-16.9); Immature Granulocytes % 0.5 % (0-4); Lymphocytes # 0.7 K/mcL (0.6-4.6); Mean Corpuscular HGB Conc 31.2 g/dL (31.6-35.5); Mean Corpuscular Hemoglobin 28.4 pg (28.0-33.3); Mean Corpuscular Volume 91.3 fL (83.0-100.0); Mean Platelet Volume 10.2 fL (9.4-12.4); Monocytes # 1.8 K/mcL (0.0-1.3); Monocytes % 7.6 %; Platelet Count 437 K/mcL (140-400); Red Cell Distribution Width 16.6 % (11.5-14.5); Segmented Neutrophils % 88.7 %; White Blood Count 23.6 K/mcL (4.3-11.1)
[2019-11-28] MEDS: Ringers Solution, Lactated 1,000 ML IVC SCH ×2 (06:18→18:42)
[2019-11-28 06:24] LABS: Calcium 7.8 mg/dL (8.6-10.3); Phosphorous 4.1 mg/dL (2.7-4.5); Potassium 3.6 mEq/L (3.5-5.1)
[2019-11-28] MEDS ORDERED: Morphine Sulfate 2 MG/ML SYRINGE IVP ONE (06:38)
[2019-11-28] MEDS: Budesonide/Formoterol 80/4.5 1 PUFF INH IH SCH ×2 (07:48→21:56)
[2019-11-28] MEDS ORDERED: Furosemide 40 MG TABLET PO SCH (09:00)
[2019-11-28] MEDS: *HR* Glimepiride 4 MG TABLET PO SCH ×2 (10:03→17:00)
[2019-11-28] MEDS: Diltiazem CD (24hr) 120 MG CAPSULE PO SCH (10:03)
[2019-11-28] MEDS: Famotidine 20 MG TABLET PO SCH (10:03)
[2019-11-28] MEDS: Piperacillin/Tazobactam 3.375 GM in 0.9 % Sodium Chloride Mini Bag 100 ML IVPB SCH ×2 (10:04→17:01)
[2019-11-28] MEDS: Insulin LISPRO 300 UNITS/3 ML VIAL SQ SCH ×4 (10:04→20:39)
[2019-11-28] MEDS: Acetaminophen IV 1,000 MG/100 ML INFUS..BTL IVPB SCH ×2 (12:18→17:01)
[2019-11-28] MEDS: *HR* Heparin 5,000 UNIT/ML VIAL SQ SCH (12:19)
[2019-11-28] MEDS: Insulin DETEMIR 100 UNIT/ML X5UNITS SQ SCH (20:38)
[2019-11-29] MEDS: Piperacillin/Tazobactam 3.375 GM in 0.9 % Sodium Chloride Mini Bag 100 ML IVPB SCH ×3 (00:13→17:29)
[2019-11-29] MEDS: Acetaminophen IV 1,000 MG/100 ML INFUS..BTL IVPB SCH ×4 (00:13→17:32)
[2019-11-29 04:17] LABS: Basophils # 0.1 K/mcL (0.0-0.2); Basophils % 0.2 %; Hematocrit 25.8 % (37.5-50.1); Immature Granulocytes % 0.9 % (0-4); Lymphocytes # 0.8 K/mcL (0.6-4.6); Lymphocytes % 3.7 %; Mean Corpuscular Hemoglobin 29.3 pg (28.0-33.3); Mean Corpuscular Volume 94.5 fL (83.0-100.0); Monocytes # 1.6 K/mcL (0.0-1.3); Monocytes % 7.7 %; Neutrophils # 18.4 K/mcL (1.6-8.9); Platelet Count 330 K/mcL (140-400); Red Blood Count 2.73 M/mcL (4.19-5.50); Red Cell Distribution Width 16.7 % (11.5-14.5); Segmented Neutrophils % 87.5 %; White Blood Count 21.1 K/mcL (4.3-11.1)
[2019-11-29 04:35] LABS: Calcium 7.4 mg/dL (8.6-10.3)
[2019-11-29] MEDS: *HR* Heparin 5,000 UNIT/ML VIAL SQ SCH ×2 (05:56→17:28)
[2019-11-29] MEDS: Insulin LISPRO 300 UNITS/3 ML VIAL SQ SCH ×4 (07:59→20:36)
[2019-11-29] MEDS: *HR* Glimepiride 4 MG TABLET PO SCH ×2 (08:00→17:30)
[2019-11-29] MEDS: Famotidine 20 MG TABLET PO SCH (08:00)
[2019-11-29] MEDS: Budesonide/Formoterol 80/4.5 1 PUFF INH IH SCH ×2 (08:24→19:57)
[2019-11-29] MEDS: Diltiazem CD (24hr) 120 MG CAPSULE PO SCH (10:41)
[2019-11-29] MEDS: Ondansetron 4 MG/2 ML VIAL IVP PRN ×3 (10:48→23:49)
[2019-11-29] MEDS ORDERED: 0.9 % Sodium Chloride 1,000 ML IVC SCH (16:30)
[2019-11-29] MEDS: Insulin DETEMIR 100 UNIT/ML X5UNITS SQ SCH (20:35)
[2019-11-30] MEDS: Piperacillin/Tazobactam 3.375 GM in 0.9 % Sodium Chloride Mini Bag 100 ML IVPB SCH ×4 (00:07→23:38)
[2019-11-30] MEDS: Acetaminophen IV 1,000 MG/100 ML INFUS..BTL IVPB SCH ×5 (00:08→23:34)
[2019-11-30] MEDS ORDERED: *HR* Metoprolol 5 MG/5 ML VIAL IVP ONE ×2 (00:34→00:37)
[2019-11-30 00:46] LABS: Sodium, Urine 13.5 mEq/L
[2019-11-30] MEDS ORDERED: Amiodarone Premix 150 MG/100 ML BAG IVPB ONE (00:47)
[2019-11-30] MEDS ORDERED: Amiodarone Premix 360 MG/200 ML BAG IVC ONE (01:00)
[2019-11-30 01:37] LABS: Nucleated Red Blood Cells 0.1 /100 WBC (0); Red Cell Distribution Width 16.8 % (11.5-14.5)
[2019-11-30 01:38] LABS: Basophils % 0.1 %; Hemoglobin 8.3 g/dL (12.9-16.9); Immature Granulocytes % 2.4 % (0-4); Lymphocytes # 0.6 K/mcL (0.6-4.6); Lymphocytes % 2.1 %; Mean Corpuscular HGB Conc 30.7 g/dL (31.6-35.5); Mean Corpuscular Hemoglobin 29.3 pg (28.0-33.3); Mean Corpuscular Volume 95.4 fL (83.0-100.0); Mean Platelet Volume 9.9 fL (9.4-12.4); Monocytes # 1.5 K/mcL (0.0-1.3); Monocytes % 5.5 %; Neutrophils # 24.4 K/mcL (1.6-8.9); Platelet Count 425 K/mcL (140-400); Red Blood Count 2.83 M/mcL (4.19-5.50); Segmented Neutrophils % 89.9 %; White Blood Count 27.1 K/mcL (4.3-11.1)
[2019-11-30 01:51] LABS: BUN/Creatinine Ratio 13 (6-26); Blood Urea Nitrogen 36 mg/dL (8-23); Calcium 7.5 mg/dL (8.6-10.3); Carbon Dioxide 20 mEq/L (23-29); Chloride 95 mEq/L (98-107); Glucose 230 mg/dL (70-105); Magnesium 2.1 mg/dL (1.6-2.6); Osmolality,Calculated 282 (280-300); Phosphorous 4.3 mg/dL (2.7-4.5); Potassium 3.1 mEq/L (3.5-5.1); Sodium 128 mEq/L (136-145); Troponin I < 0.03 ng/mL (< 0.04); eGFR For African Americans 28 (> 60); eGFR For Non-African Americans 23 (> 60)
[2019-11-30] MEDS ORDERED: Potassium Chloride 40 MEQ, Lidocaine 1% 2 ML in 0.9 % Sodium Chloride 500 ML IVPB ONE (01:51)
[2019-11-30] MEDS: *HR* Heparin 5,000 UNIT/ML VIAL SQ SCH (05:35)
[2019-11-30 05:36] LABS: Basophils % 0.2 %; Lymphocytes % 2.5 %; Mean Corpuscular Hemoglobin 28.5 pg (28.0-33.3); Monocytes % 5.4 %
[2019-11-30 05:37] LABS: Basophils # 0.1 K/mcL (0.0-0.2); Hematocrit 28.8 % (37.5-50.1); Immature Granulocytes % 4.4 % (0-4); Lymphocytes # 0.8 K/mcL (0.6-4.6); Mean Corpuscular HGB Conc 31.3 g/dL (31.6-35.5); Mean Corpuscular Volume 91.1 fL (83.0-100.0); Mean Platelet Volume 9.6 fL (9.4-12.4); Monocytes # 1.7 K/mcL (0.0-1.3); Neutrophils # 26.7 K/mcL (1.6-8.9); Nucleated Red Blood Cells 0.1 /100 WBC (0); Platelet Count 449 K/mcL (140-400); Red Blood Count 3.16 M/mcL (4.19-5.50); Red Cell Distribution Width 16.7 % (11.5-14.5); Segmented Neutrophils % 87.5 %
[2019-11-30] MEDS: Ondansetron 4 MG/2 ML VIAL IVP PRN ×2 (05:43→08:54)
[2019-11-30 05:53] LABS: White Blood Count 30.5 K/mcL (4.3-11.1)
[2019-11-30 06:00] LABS: Calcium 7.6 mg/dL (8.6-10.3); Potassium 3.8 mEq/L (3.5-5.1)
[2019-11-30] MEDS ORDERED: Amiodarone Premix 360 MG/200 ML BAG IVC SCH (07:00)
[2019-11-30] MEDS: Budesonide/Formoterol 80/4.5 1 PUFF INH IH SCH ×2 (07:44→19:36)
[2019-11-30] MEDS: Diltiazem CD (24hr) 120 MG CAPSULE PO SCH (08:55)
[2019-11-30] MEDS: Insulin LISPRO 300 UNITS/3 ML VIAL SQ SCH ×4 (08:56→20:38)
[2019-11-30] MEDS: Famotidine 20 MG TABLET PO SCH (08:56)
[2019-11-30] MEDS: *HR* Glimepiride 4 MG TABLET PO SCH ×2 (08:56→10:32)
[2019-11-30] MEDS ORDERED: *HR* Heparin 5,000 UNIT/ML VIAL IVP PRN ×2 (12:31)
[2019-11-30] MEDS ORDERED: Heparin 25,000 UNIT/250 ML D5W 25,000 UNIT/250 ML IV.SOLN IVC SCH (12:45)
[2019-11-30] MEDS ORDERED: *HR* Amiodarone 150 MG/3 ML VIAL IVPB ONE (13:39)
[2019-11-30] MEDS ORDERED: *HR* Amiodarone Premix 360 MG/200 ML BAG IVC ONE (13:39)
[2019-11-30 13:46] LABS: Mean Platelet Volume 9.8 fL (9.4-12.4)
[2019-11-30 13:48] LABS: Hematocrit 29.6 % (37.5-50.1); Hemoglobin 9.2 g/dL (12.9-16.9); Mean Corpuscular HGB Conc 31.1 g/dL (31.6-35.5); Mean Corpuscular Hemoglobin 28.9 pg (28.0-33.3); Mean Corpuscular Volume 93.1 fL (83.0-100.0); Platelet Count 504 K/mcL (140-400); Red Blood Count 3.18 M/mcL (4.19-5.50); Red Cell Distribution Width 17.1 % (11.5-14.5)
[2019-11-30 14:02] LABS: White Blood Count 33.6 K/mcL (4.3-11.1)
[2019-11-30 14:06] LABS: INR 1.6; Prothrombin Time 17.9 Seconds (9.4-12.1)
[2019-11-30] MEDS ORDERED: Fluconazole 400 MG/200 ML 400 MG/200 ML BAG IVPB ONE (16:43)
[2019-11-30] MEDS ORDERED: Vancomycin 1 EACH in 0.9 % Sodium Chloride 250 ML IVPB SCH (17:00)
[2019-11-30] MEDS: Insulin DETEMIR 100 UNIT/ML X5UNITS SQ SCH (20:58)
[2019-12-01 05:00] LABS: Basophils % 0.2 %; Eosinophils % 0.2 %; Hematocrit 26.8 % (37.5-50.1); Hemoglobin 8.1 g/dL (12.9-16.9); Lymphocytes # 0.9 K/mcL (0.6-4.6); Lymphocytes % 4.5 %; Mean Corpuscular HGB Conc 30.2 g/dL (31.6-35.5); Mean Corpuscular Hemoglobin 28.4 pg (28.0-33.3); Mean Platelet Volume 9.5 fL (9.4-12.4); Monocytes # 1.2 K/mcL (0.0-1.3); Monocytes % 6.5 %; Neutrophils # 16.3 K/mcL (1.6-8.9); Nucleated Red Blood Cells 0.3 /100 WBC (0); Platelet Count 396 K/mcL (140-400); Red Blood Count 2.85 M/mcL (4.19-5.50); Segmented Neutrophils % 86.6 %; White Blood Count 18.8 K/mcL (4.3-11.1)
[2019-12-01 05:27] LABS: Albumin 2.3 g/dL (3.5-5.7); Albumin/Globulin Ratio 0.7 (1.1-2.2); Bilirubin,Total 0.3 mg/dL (0.3-1.0); Calcium 7.3 mg/dL (8.6-10.3); Globulin 3.4 g/dL (2.4-3.5); Magnesium 2.2 mg/dL (1.6-2.6); Potassium 3.4 mEq/L (3.5-5.1); Total Protein 5.7 g/dL (6.4-8.9)
[2019-12-01] MEDS: Acetaminophen IV 1,000 MG/100 ML INFUS..BTL IVPB SCH (05:47)
[2019-12-01] MEDS: Insulin LISPRO 300 UNITS/3 ML VIAL SQ SCH ×4 (08:01→19:49)
[2019-12-01] MEDS: Famotidine 20 MG TABLET PO SCH (08:28)
[2019-12-01] MEDS: Diltiazem CD (24hr) 120 MG CAPSULE PO SCH (08:28)
[2019-12-01] MEDS: Piperacillin/Tazobactam 3.375 GM in 0.9 % Sodium Chloride Mini Bag 100 ML IVPB SCH ×3 (08:28→23:48)
[2019-12-01] MEDS ORDERED: Aminoglycoside Consult 1 EACH MC ONE (08:34)
[2019-12-01] MEDS: Budesonide/Formoterol 80/4.5 1 PUFF INH IH SCH ×2 (08:35→20:02)
[2019-12-01] MEDS ORDERED: Acetaminophen 325 MG TABLET PO PRN (11:36)
[2019-12-01] MEDS ORDERED: Potassium Chloride 20 MEQ, Lidocaine 1% 2 ML in 0.9 % Sodium Chloride 250 ML IVPB ONE (11:37)
[2019-12-01] MEDS: 0.9 % Sodium Chloride 1,000 ML IVC SCH ×2 (13:02→19:48)
[2019-12-01] MEDS: *HR* Heparin 5,000 UNIT/ML VIAL SQ SCH ×2 (13:05→19:48)
[2019-12-01] MEDS: Fluconazole 200 MG/100 ML 200 MG/100 ML BAG IVPB SCH (17:23)
[2019-12-01] MEDS: Insulin DETEMIR 100 UNIT/ML X5UNITS SQ SCH (19:48)
[2019-12-02] MEDS ORDERED: *HR* Dextrose 50 % in Water (Syg) 50 ML SYRINGE IVP PRN ×2 (03:17→18:25)
[2019-12-02] MEDS: *HR* Heparin 5,000 UNIT/ML VIAL SQ SCH ×2 (05:13→18:18)
[2019-12-02] MEDS: 0.9 % Sodium Chloride 1,000 ML IVC SCH ×2 (05:13→21:03)
[2019-12-02 06:43] LABS: Uric Acid 7.6 mg/dL (2.3-7.6)
[2019-12-02 07:01] LABS: Basophils % 0.3 %; Eosinophils % 0.1 %; Hematocrit 26.2 % (37.5-50.1); Hemoglobin 7.9 g/dL (12.9-16.9); Immature Granulocytes % 1.9 % (0-4); Lymphocytes # 0.7 K/mcL (0.6-4.6); Lymphocytes % 4.5 %; Mean Corpuscular HGB Conc 30.2 g/dL (31.6-35.5); Mean Corpuscular Hemoglobin 28.8 pg (28.0-33.3); Mean Corpuscular Volume 95.6 fL (83.0-100.0); Mean Platelet Volume 9.3 fL (9.4-12.4); Monocytes % 6.5 %; Nucleated Red Blood Cells 0.7 /100 WBC (0); Platelet Count 342 K/mcL (140-400); Red Blood Count 2.74 M/mcL (4.19-5.50); Red Cell Distribution Width 17.4 % (11.5-14.5); Segmented Neutrophils % 86.7 %
[2019-12-02] MEDS: Budesonide/Formoterol 80/4.5 1 PUFF INH IH SCH ×2 (07:13→20:21)
[2019-12-02 07:21] LABS: Calcium 7.5 mg/dL (8.6-10.3); Potassium 3.6 mEq/L (3.5-5.1)
[2019-12-02] MEDS: Insulin LISPRO 300 UNITS/3 ML VIAL SQ SCH ×4 (07:34→21:02)
[2019-12-02] MEDS: Diltiazem CD (24hr) 120 MG CAPSULE PO SCH (08:05)
[2019-12-02] MEDS: Famotidine 20 MG TABLET PO SCH (08:05)
[2019-12-02] MEDS: Piperacillin/Tazobactam 3.375 GM in 0.9 % Sodium Chloride Mini Bag 100 ML IVPB SCH ×2 (08:06→15:01)
[2019-12-02 08:17] LABS: Albumin 2.3 g/dL (3.5-5.7); Albumin/Globulin Ratio 0.7 (1.1-2.2); Bilirubin,Total 0.2 mg/dL (0.3-1.0); Globulin 3.3 g/dL (2.4-3.5); Magnesium 2.1 mg/dL (1.6-2.6); Total Protein 5.6 g/dL (6.4-8.9)
[2019-12-02] MEDS ORDERED: 0.9 % Sodium Chloride 1,000 ML IVC SCH (10:57)
[2019-12-02] MEDS: Fluconazole 200 MG/100 ML 200 MG/100 ML BAG IVPB SCH (14:38)
[2019-12-02] MEDS ORDERED: Acetaminophen 325 MG TABLET PO PRN (18:25)
[2019-12-02] MEDS ORDERED: Ondansetron 4 MG/2 ML VIAL IVP PRN (18:25)
[2019-12-02] MEDS ORDERED: Insulin LISPRO 300 UNITS/3 ML VIAL SQ SCH (21:00)
[2019-12-02] MEDS: Insulin DETEMIR 100 UNIT/ML X5UNITS SQ SCH (21:03)
[2019-12-03] MEDS: Piperacillin/Tazobactam 3.375 GM in 0.9 % Sodium Chloride Mini Bag 100 ML IVPB SCH ×3 (00:03→15:50)
[2019-12-03 04:44] LABS: Basophils # 0.1 K/mcL (0.0-0.2); Basophils % 0.5 %; Eosinophils # 0.1 K/mcL (0.0-0.6); Eosinophils % 0.3 %; Hematocrit 28.5 % (37.5-50.1); Hemoglobin 8.4 g/dL (12.9-16.9); Immature Granulocytes % 3.1 % (0-4); Lymphocytes # 0.8 K/mcL (0.6-4.6); Lymphocytes % 5.1 %; Mean Corpuscular HGB Conc 29.5 g/dL (31.6-35.5); Mean Corpuscular Hemoglobin 28.4 pg (28.0-33.3); Mean Corpuscular Volume 96.3 fL (83.0-100.0); Mean Platelet Volume 9.8 fL (9.4-12.4); Monocytes # 1.2 K/mcL (0.0-1.3); Monocytes % 7.6 %; Neutrophils # 12.8 K/mcL (1.6-8.9); Platelet Count 372 K/mcL (140-400); Red Blood Count 2.96 M/mcL (4.19-5.50); Red Cell Distribution Width 17.5 % (11.5-14.5); Segmented Neutrophils % 83.4 %; White Blood Count 15.3 K/mcL (4.3-11.1)
[2019-12-03 05:20] LABS: Calcium 7.7 mg/dL (8.6-10.3); Potassium 3.5 mEq/L (3.5-5.1)
[2019-12-03 05:39] LABS: Anisocytosis 1+ (Not Present); Platelet Estimate Normal (Normal); Poikilocytosis 1+ (Not Present); Polychromasia 1+ (Not Present)
[2019-12-03] MEDS: 0.9 % Sodium Chloride 1,000 ML IVC SCH ×2 (05:40→20:20)
[2019-12-03] MEDS ORDERED: *HR* Heparin 5,000 UNIT/ML VIAL SQ SCH (06:00)
[2019-12-03] MEDS: Famotidine 20 MG TABLET PO SCH (07:39)
[2019-12-03] MEDS: Budesonide/Formoterol 80/4.5 1 PUFF INH IH SCH ×2 (07:41→20:31)
[2019-12-03] MEDS ORDERED: Diltiazem CD (24hr) 120 MG CAPSULE PO SCH (09:00)
[2019-12-03] MEDS ORDERED: *HR* Metoprolol 5 MG/5 ML VIAL IVP ONE ×3 (12:54→13:41)
[2019-12-03] MEDS ORDERED: Potassium Chloride 40 MEQ, Lidocaine 1% 2 ML in 0.9 % Sodium Chloride 500 ML IVPB ONE (13:40)
[2019-12-03] MEDS ORDERED: *HR* Heparin 5,000 UNIT/ML VIAL IVP PRN ×2 (14:28)
[2019-12-03] MEDS ORDERED: Heparin 25,000 UNIT/250 ML D5W 25,000 UNIT/250 ML IV.SOLN IVC SCH (14:30)
[2019-12-03 14:55] LABS: Phosphorous 3.9 mg/dL (2.7-4.5); Troponin I < 0.03 ng/mL (< 0.04)
[2019-12-03] MEDS: Fluconazole 200 MG/100 ML 200 MG/100 ML BAG IVPB SCH (15:50)
[2019-12-03 16:09] LABS: INR 1.7; Prothrombin Time 19.1 Seconds (9.4-12.1)
[2019-12-03 16:11] LABS: Activated Partial Thrombo Time 43.5 Seconds (26.0-36.0)
[2019-12-03 17:49] LABS: Hemoglobin 7.6 g/dL (12.9-16.9); Mean Corpuscular HGB Conc 29.2 g/dL (31.6-35.5); Mean Corpuscular Hemoglobin 28.7 pg (28.0-33.3); Mean Corpuscular Volume 98.1 fL (83.0-100.0); Mean Platelet Volume 9.8 fL (9.4-12.4); Platelet Count 352 K/mcL (140-400); Red Blood Count 2.65 M/mcL (4.19-5.50); Red Cell Distribution Width 17.5 % (11.5-14.5); White Blood Count 13.6 K/mcL (4.3-11.1)
[2019-12-03] MEDS ORDERED: *HR* Metoprolol 5 MG/5 ML VIAL IVP PRN (19:23)
[2019-12-03] MEDS: Melatonin 3 MG TABLET PO SCH (19:56)
[2019-12-03] MEDS: Insulin DETEMIR 100 UNIT/ML X5UNITS SQ SCH (19:56)
[2019-12-03] MEDS: Insulin LISPRO 300 UNITS/3 ML VIAL SQ SCH (20:19)
[2019-12-03 20:24] LABS: Calcium 7.8 mg/dL (8.6-10.3); Hematocrit 27.3 % (37.5-50.1); Hemoglobin 7.9 g/dL (12.9-16.9); Potassium 4.1 mEq/L (3.5-5.1)
[2019-12-04] MEDS: Piperacillin/Tazobactam 3.375 GM in 0.9 % Sodium Chloride Mini Bag 100 ML IVPB SCH ×4 (00:11→23:32)
[2019-12-04 02:46] LABS: Hematocrit 25.7 % (37.5-50.1); Hemoglobin 7.3 g/dL (12.9-16.9)
[2019-12-04 03:03] LABS: Calcium 7.8 mg/dL (8.6-10.3); Potassium 3.8 mEq/L (3.5-5.1)
[2019-12-04] MEDS: Budesonide/Formoterol 80/4.5 1 PUFF INH IH SCH ×2 (08:07→20:28)
[2019-12-04] MEDS: Famotidine 20 MG TABLET PO SCH (08:13)
[2019-12-04] MEDS: Diltiazem CD (24hr) 120 MG CAPSULE PO SCH (11:51)
[2019-12-04] MEDS: 0.9 % Sodium Chloride 1,000 ML IVC SCH ×2 (12:58→21:26)
[2019-12-04] MEDS: Fluconazole 200 MG/100 ML 200 MG/100 ML BAG IVPB SCH (16:13)
[2019-12-04] MEDS: Insulin DETEMIR 100 UNIT/ML X5UNITS SQ SCH (20:54)
[2019-12-04] MEDS: Melatonin 3 MG TABLET PO SCH (20:54)
[2019-12-04] MEDS: Insulin LISPRO 300 UNITS/3 ML VIAL SQ SCH (20:55)
[2019-12-05 01:07] LABS: Hematocrit 24.3 % (37.5-50.1)
[2019-12-05 01:25] LABS: Calcium 7.9 mg/dL (8.6-10.3); Potassium 3.7 mEq/L (3.5-5.1)
[2019-12-05] MEDS: Budesonide/Formoterol 80/4.5 1 PUFF INH IH SCH ×2 (07:43→21:03)
[2019-12-05] MEDS: Famotidine 20 MG TABLET PO SCH (08:14)
[2019-12-05] MEDS: Piperacillin/Tazobactam 3.375 GM in 0.9 % Sodium Chloride Mini Bag 100 ML IVPB SCH ×3 (08:14→23:45)
[2019-12-05] MEDS: Diltiazem CD (24hr) 120 MG CAPSULE PO SCH (08:14)
[2019-12-05] MEDS ORDERED: 0.9 % Sodium Chloride 250 ML ONE (11:32)
[2019-12-05] MEDS: 0.9 % Sodium Chloride 1,000 ML IVC SCH (15:50)
[2019-12-05] MEDS: Fluconazole 200 MG/100 ML 200 MG/100 ML BAG IVPB SCH (16:06)
[2019-12-05] MEDS: Insulin LISPRO 300 UNITS/3 ML VIAL SQ SCH (20:28)
[2019-12-05] MEDS: Insulin DETEMIR 100 UNIT/ML X5UNITS SQ SCH (20:28)
[2019-12-05] MEDS: Melatonin 3 MG TABLET PO SCH (20:29)
[2019-12-06 05:33] LABS: Hematocrit 33.6 % (37.5-50.1); Hemoglobin 10.1 g/dL (12.9-16.9)
[2019-12-06] MEDS: Budesonide/Formoterol 80/4.5 1 PUFF INH IH SCH ×2 (07:26→19:41)
[2019-12-06] MEDS: Diltiazem CD (24hr) 120 MG CAPSULE PO SCH (07:52)
[2019-12-06] MEDS: 0.9 % Sodium Chloride 1,000 ML IVC SCH ×2 (07:52→15:54)
[2019-12-06] MEDS: Famotidine 20 MG TABLET PO SCH (07:52)
[2019-12-06] MEDS: Piperacillin/Tazobactam 3.375 GM in 0.9 % Sodium Chloride Mini Bag 100 ML IVPB SCH ×3 (07:53→23:36)
[2019-12-06] MEDS: Fluconazole 200 MG/100 ML 200 MG/100 ML BAG IVPB SCH (15:26)
[2019-12-06 15:45] LABS: INR 1.5; Prothrombin Time 17.4 Seconds (9.4-12.1)
[2019-12-06] MEDS ORDERED: *HR* Warfarin 3 MG TABLET PO ONE (18:00)
[2019-12-06] MEDS ORDERED: Warfarin perPT PO PRN (18:00)
[2019-12-06] MEDS: Melatonin 3 MG TABLET PO SCH (19:51)
[2019-12-06] MEDS: Insulin LISPRO 300 UNITS/3 ML VIAL SQ SCH (21:23)
[2019-12-06] MEDS: Insulin DETEMIR 100 UNIT/ML X5UNITS SQ SCH (21:23)
[2019-12-07] MEDS: 0.9 % Sodium Chloride 1,000 ML IVC SCH (03:36)
[2019-12-07 03:44] LABS: Hematocrit 32.4 % (37.5-50.1)
[2019-12-07 03:50] LABS: INR 1.5; Prothrombin Time 17.1 Seconds (9.4-12.1)
[2019-12-07 04:04] LABS: Calcium 8.2 mg/dL (8.6-10.3); Potassium 4.1 mEq/L (3.5-5.1)
[2019-12-07] MEDS: Budesonide/Formoterol 80/4.5 1 PUFF INH IH SCH (07:39)
[2019-12-07] MEDS: Famotidine 20 MG TABLET PO SCH (07:51)
[2019-12-07] MEDS: Diltiazem CD (24hr) 120 MG CAPSULE PO SCH (07:52)
[2019-12-07] MEDS: Piperacillin/Tazobactam 3.375 GM in 0.9 % Sodium Chloride Mini Bag 100 ML IVPB SCH ×2 (07:53→15:31)
[2019-12-07 11:34] VITALS: BP 115/99
[2019-12-07] MEDS: Fluconazole 200 MG/100 ML 200 MG/100 ML BAG IVPB SCH (15:31)
[2019-12-07] MEDS ORDERED: *HR* Warfarin 3 MG TABLET PO ONE (18:00)
== END 2019-12-07 18:09 | DRG 329 ==
LOC: SAMDAY 07:52 → SUATTDRO 15:34 → 3ANU 15:34 → ICNU 11-30 01:41 → 2NNU 12-03 21:30
PROVIDERS: ADMIT Surgery; ATTEND Surgery
PROC: IRDRAIN (2019-11-30 16:55)

== ENCOUNTER 2019-12-18 12:16 | Inpatient (IN) ==
[2019-12-18] MEDS ORDERED: Isovue-370 500 ML BOTTLE IVP ONE (12:26)
[2019-12-18] MEDS ORDERED: 0.9 % Sodium Chloride 250 ML IVC ONE (12:27)
[2019-12-18 12:58] LABS: Basophils # 0.1 K/mcL (0.0-0.2); Eosinophils # 0.1 K/mcL (0.0-0.6); Eosinophils % 1.3 %; Hematocrit 36.2 % (37.5-50.1); Lymphocytes % 11.7 %; Mean Corpuscular HGB Conc 30.9 g/dL (31.6-35.5); Mean Corpuscular Volume 90.5 fL (83.0-100.0); Mean Platelet Volume 10.3 fL (9.4-12.4); Monocytes # 1.1 K/mcL (0.0-1.3); Platelet Count 465 K/mcL (140-400); Red Cell Distribution Width 15.9 % (11.5-14.5); White Blood Count 8.4 K/mcL (4.3-11.1)
[2019-12-18 12:59] LABS: Hemoglobin 11.2 g/dL (12.9-16.9)
[2019-12-18 13:00] LABS: Bilirubin,Urine Negative (Negative); Blood,Urine Moderate (Negative); Clarity,Urine Turbid (Clear); Color,Urine Yellow (Yellow); Glucose,Urine (UA) Normal (Normal); Ketones,Urine Negative (Negative); Leukocyte Esterase,Urine Large (Negative); Nitrite,Urine Negative (Negative); Protein,Urine 100 mg/dL (Neg-Trace); Specific Gravity,Urine 1.015 (1.010-1.025); Urobilinogen,Urine Normal (Normal)
[2019-12-18 13:03] LABS: Bacteria,Urine Many per hpf (None-Few); Hyaline Casts,Urine Few per lpf (None-Few); RBC,Urine 15-30 per hpf (0-3); Squamous Epithelial Cell,Urine Many per lpf (None-Few); WBC,Urine TNTC per hpf (0-3)
[2019-12-18 13:19] LABS: Albumin 2.8 g/dL (3.5-5.7); Albumin/Globulin Ratio 0.5 (1.1-2.2); Bilirubin,Total 0.3 mg/dL (0.3-1.0); Calcium 8.8 mg/dL (8.6-10.3); Globulin 5.4 g/dL (2.4-3.5); Potassium 4.8 mEq/L (3.5-5.1); Total Protein 8.2 g/dL (6.4-8.9)
[2019-12-18] MEDS ORDERED: Isovue-370 500 ML BOTTLE PO ONE (15:44)
[2019-12-18] MEDS ORDERED: Ondansetron 4 MG/2 ML VIAL IVP PRN (16:29)
[2019-12-18] MEDS ORDERED: Naloxone 0.4 MG/ML INJ IVP PRN (16:29)
[2019-12-18] MEDS ORDERED: 0.9 % Sodium Chloride 1,000 ML IVC SCH (16:30)
[2019-12-18] MEDS ORDERED: *HR* Dextrose 50 % in Water (Syg) 50 ML SYRINGE IVP PRN (16:48)
[2019-12-18] MEDS ORDERED: D5% in Water 1,000 ML IVC PRN (16:48)
[2019-12-18] MEDS ORDERED: Dextrose Gel 15 GM/37.5 ML TUBE PO PRN ×2 (16:48)
[2019-12-18] MEDS: Insulin LISPRO 300 UNITS/3 ML VIAL SQ SCH (18:40)
[2019-12-18] MEDS: Piperacillin/Tazobactam 3.375 GM in 0.9 % Sodium Chloride Mini Bag 100 ML IVPB SCH (18:40)
[2019-12-19] MEDS: Insulin LISPRO 300 UNITS/3 ML VIAL SQ SCH ×4 (00:10→17:35)
[2019-12-19] MEDS: Piperacillin/Tazobactam 3.375 GM in 0.9 % Sodium Chloride Mini Bag 100 ML IVPB SCH ×3 (02:40→20:34)
[2019-12-19 05:01] LABS: INR 1.6; Prothrombin Time 18.2 Seconds (9.4-12.1)
[2019-12-19 05:10] LABS: Hematocrit 31.2 % (37.5-50.1); Mean Corpuscular HGB Conc 30.8 g/dL (31.6-35.5); Mean Corpuscular Hemoglobin 28.2 pg (28.0-33.3); Mean Corpuscular Volume 91.5 fL (83.0-100.0); Mean Platelet Volume 9.9 fL (9.4-12.4); Platelet Count 409 K/mcL (140-400); Red Blood Count 3.41 M/mcL (4.19-5.50); Red Cell Distribution Width 15.9 % (11.5-14.5); White Blood Count 7.9 K/mcL (4.3-11.1)
[2019-12-19 05:14] LABS: Hemoglobin 9.6 g/dL (12.9-16.9)
[2019-12-19 05:25] LABS: Calcium 8.1 mg/dL (8.6-10.3); Potassium 4.6 mEq/L (3.5-5.1)
[2019-12-19] MEDS ORDERED: DilTIAZem CD (24hr) 120 MG CAP.ER.24H PO SCH (11:45)
[2019-12-19] MEDS ORDERED: *HR* Metoprolol 5 MG/5 ML VIAL IVP PRN (11:58)
[2019-12-19] MEDS ORDERED: *HR* Heparin 5,000 UNIT/ML VIAL IVP ONE (12:21)
[2019-12-19] MEDS ORDERED: *HR* Heparin 5,000 UNIT/ML VIAL IVP PRN (12:21)
[2019-12-19 12:57] LABS: Hematocrit 35.1 % (37.5-50.1); Hemoglobin 10.8 g/dL (12.9-16.9); Mean Corpuscular HGB Conc 30.8 g/dL (31.6-35.5); Mean Corpuscular Hemoglobin 27.9 pg (28.0-33.3); Mean Corpuscular Volume 90.7 fL (83.0-100.0); Mean Platelet Volume 9.6 fL (9.4-12.4); Platelet Count 468 K/mcL (140-400); Red Blood Count 3.87 M/mcL (4.19-5.50); Red Cell Distribution Width 15.9 % (11.5-14.5); White Blood Count 10.4 K/mcL (4.3-11.1)
[2019-12-19 13:03] LABS: INR 1.6; Prothrombin Time 18.5 Seconds (9.4-12.1)
[2019-12-19 13:05] LABS: Heparin anti-factor XA UFH 0.01 IU/mL (0.30-0.70)
[2019-12-19] MEDS: Heparin 25,000 UNIT/250 ML D5W 25,000 UNIT/250 ML IV.SOLN IVC SCH (13:40)
[2019-12-19] MEDS: Acetaminophen IV 1,000 MG/100 ML INFUS..BTL IVPB SCH ×2 (13:43→18:16)
[2019-12-19] MEDS: Budesonide/Formoterol 80/4.5 1 PUFF INH IH SCH (20:00)
[2019-12-20] MEDS: Insulin LISPRO 300 UNITS/3 ML VIAL SQ SCH ×4 (00:02→17:37)
[2019-12-20] MEDS: Piperacillin/Tazobactam 3.375 GM in 0.9 % Sodium Chloride Mini Bag 100 ML IVPB SCH ×2 (03:59→12:40)
[2019-12-20] MEDS: *HR* Heparin 5,000 UNIT/ML VIAL IVP PRN ×2 (04:10→17:37)
[2019-12-20 07:32] LABS: Hematocrit 32.1 % (37.5-50.1); Hemoglobin 9.5 g/dL (12.9-16.9); Mean Corpuscular HGB Conc 29.6 g/dL (31.6-35.5); Mean Corpuscular Hemoglobin 27.6 pg (28.0-33.3); Mean Corpuscular Volume 93.3 fL (83.0-100.0); Platelet Count 463 K/mcL (140-400); Red Blood Count 3.44 M/mcL (4.19-5.50); Red Cell Distribution Width 15.9 % (11.5-14.5); White Blood Count 8.8 K/mcL (4.3-11.1)
[2019-12-20] MEDS: Acetaminophen IV 1,000 MG/100 ML INFUS..BTL IVPB SCH ×5 (07:40→23:34)
[2019-12-20 07:41] LABS: Calcium 8.4 mg/dL (8.6-10.3); Potassium 4.6 mEq/L (3.5-5.1)
[2019-12-20] MEDS: Budesonide/Formoterol 80/4.5 1 PUFF INH IH SCH ×2 (07:45→19:20)
[2019-12-20] MEDS: Heparin 25,000 UNIT/250 ML D5W 25,000 UNIT/250 ML IV.SOLN IVC SCH ×2 (08:13→23:30)
[2019-12-20] MEDS ORDERED: Cyanocobalamin (B-12) 1,000 MCG TABLET PO SCH (09:00)
[2019-12-20] MEDS ORDERED: Folic Acid 1 MG TABLET PO SCH (09:00)
[2019-12-20] MEDS ORDERED: Cholecalciferol (D-3) 1,000 UNIT (25MCG) TABLET PO SCH (09:00)
[2019-12-20] MEDS ORDERED: Furosemide 40 MG TABLET PO SCH (09:00)
[2019-12-20] MEDS ORDERED: 0.9 % Sodium Chloride 500 ML IVC ONE (10:47)
[2019-12-20] MEDS: 0.9 % Sodium Chloride 1,000 ML IVC SCH ×2 (12:39→23:33)
[2019-12-21 00:29] LABS: Hematocrit 31.6 % (37.5-50.1); Hemoglobin 9.5 g/dL (12.9-16.9); Mean Corpuscular HGB Conc 30.1 g/dL (31.6-35.5); Mean Corpuscular Hemoglobin 27.8 pg (28.0-33.3); Mean Corpuscular Volume 92.4 fL (83.0-100.0); Mean Platelet Volume 9.6 fL (9.4-12.4); Platelet Count 426 K/mcL (140-400); Red Blood Count 3.42 M/mcL (4.19-5.50); Red Cell Distribution Width 16.1 % (11.5-14.5); White Blood Count 7.8 K/mcL (4.3-11.1)
[2019-12-21 00:33] LABS: Potassium 4.5 mEq/L (3.5-5.1)
[2019-12-21] MEDS: Insulin LISPRO 300 UNITS/3 ML VIAL SQ SCH ×5 (01:36→21:04)
[2019-12-21] MEDS: Acetaminophen IV 1,000 MG/100 ML INFUS..BTL IVPB SCH (06:08)
[2019-12-21 07:33] LABS: Magnesium 1.9 mg/dL (1.6-2.6); Phosphorous 5.7 mg/dL (2.7-4.5)
[2019-12-21] MEDS ORDERED: Piperacillin/Tazobactam 3.375 GM in 0.9 % Sodium Chloride Mini Bag 100 ML IVPB SCH ×2 (08:00)
[2019-12-21] MEDS ORDERED: Acetaminophen IV 1,000 MG/100 ML INFUS..BTL IVPB PRN (08:49)
[2019-12-21] MEDS: Budesonide/Formoterol 80/4.5 1 PUFF INH IH SCH ×2 (11:16→20:03)
[2019-12-21] MEDS: 0.9 % Sodium Chloride 1,000 ML IVC SCH ×2 (11:27→22:39)
[2019-12-21] MEDS: Octreotide 400 MCG in 0.9 % Sodium Chloride 100 ML IVC SCH (11:49)
[2019-12-21] MEDS ORDERED: Heparin 1,000 UNITS/500 mL 500 ML ONE (12:21)
[2019-12-21] MEDS ORDERED: D10% in Water 500 ML IVC PRN (12:26)
[2019-12-21] MEDS ORDERED: *HR* FentaNYL (PF) 100 MCG/2 ML VIAL IVP ONE (13:08)
[2019-12-21] MEDS ORDERED: *HR* Midazolam HCl 2 MG/2 ML VIAL IVP ONE (13:08)
[2019-12-21] MEDS ORDERED: 0.9 % Sodium Chloride 500 ML ONE (13:12)
[2019-12-21] MEDS ORDERED: Clinimix 5%-20% SOLUTION 2,000 ML with MVI, adult with vitamin K 10 ML, Sodium Acetat... IVC SCH (17:00)
[2019-12-21] MEDS ORDERED: Clinimix E 5%-20% SOLUTION 2,000 ML with MVI, adult with vitamin K 10 ML IVC SCH (17:00)
[2019-12-21] MEDS ORDERED: Amoxicillin/Clavulanate 500 MG TABLET PO SCH (17:00)
[2019-12-21] MEDS: Heparin 25,000 UNIT/250 ML D5W 25,000 UNIT/250 ML IV.SOLN IVC SCH (17:50)
[2019-12-21] MEDS ORDERED: Ampicillin/Sulbactam 3,000 MG in 0.9 % Sodium Chloride Mini Bag 100 ML IVPB SCH (18:00)
[2019-12-21] MEDS: Ampicillin/Sulbactam 3,000 MG in 0.9 % Sodium Chloride Mini Bag 100 ML IVPB SCH (18:48)
[2019-12-21] MEDS: *HR* Heparin 5,000 UNIT/ML VIAL IVP PRN (21:38)
[2019-12-22] MEDS: Insulin LISPRO 300 UNITS/3 ML VIAL SQ SCH ×6 (00:31→20:23)
[2019-12-22] MEDS: Octreotide 400 MCG in 0.9 % Sodium Chloride 100 ML IVC SCH ×2 (03:54→20:22)
[2019-12-22 03:57] LABS: Hematocrit 27.4 % (37.5-50.1); Hemoglobin 8.9 g/dL (12.9-16.9); Mean Corpuscular HGB Conc 32.5 g/dL (31.6-35.5); Mean Corpuscular Hemoglobin 30.5 pg (28.0-33.3); Mean Corpuscular Volume 93.8 fL (83.0-100.0); Mean Platelet Volume 9.6 fL (9.4-12.4); Platelet Count 385 K/mcL (140-400); Red Blood Count 2.92 M/mcL (4.19-5.50); Red Cell Distribution Width 16.2 % (11.5-14.5); White Blood Count 7.1 K/mcL (4.3-11.1)
[2019-12-22 05:54] LABS: Calcium 7.6 mg/dL (8.6-10.3); Magnesium 1.7 mg/dL (1.6-2.6); Phosphorous 4.1 mg/dL (2.7-4.5); Potassium 4.3 mEq/L (3.5-5.1)
[2019-12-22] MEDS: Ampicillin/Sulbactam 3,000 MG in 0.9 % Sodium Chloride Mini Bag 100 ML IVPB SCH ×2 (06:24→17:11)
[2019-12-22] MEDS: Budesonide/Formoterol 80/4.5 1 PUFF INH IH SCH ×2 (07:06→19:51)
[2019-12-22] MEDS: Heparin 25,000 UNIT/250 ML D5W 25,000 UNIT/250 ML IV.SOLN IVC SCH ×2 (08:26→20:44)
[2019-12-22] MEDS: 0.9 % Sodium Chloride 1,000 ML IVC SCH ×2 (09:41→20:19)
[2019-12-22] MEDS ORDERED: Clinimix E 5%-15% SOLUTION 2,000 ML with MVI, adult with vitamin K 10 ML IVC SCH (17:00)
[2019-12-23] MEDS: Insulin LISPRO 300 UNITS/3 ML VIAL SQ SCH ×4 (00:42→12:46)
[2019-12-23 04:04] LABS: Hematocrit 29.6 % (37.5-50.1); Hemoglobin 8.7 g/dL (12.9-16.9); Mean Corpuscular HGB Conc 29.4 g/dL (31.6-35.5); Mean Corpuscular Hemoglobin 27.6 pg (28.0-33.3); Mean Platelet Volume 9.5 fL (9.4-12.4); Platelet Count 351 K/mcL (140-400); Red Blood Count 3.15 M/mcL (4.19-5.50); White Blood Count 8.6 K/mcL (4.3-11.1)
[2019-12-23 04:21] LABS: Magnesium 1.5 mg/dL (1.6-2.6); Phosphorous 2.8 mg/dL (2.7-4.5)
[2019-12-23 04:23] LABS: Calcium 7.7 mg/dL (8.6-10.3); Potassium 3.9 mEq/L (3.5-5.1)
[2019-12-23] MEDS: Ampicillin/Sulbactam 3,000 MG in 0.9 % Sodium Chloride Mini Bag 100 ML IVPB SCH (06:10)
[2019-12-23] MEDS: Budesonide/Formoterol 80/4.5 1 PUFF INH IH SCH (07:49)
[2019-12-23] MEDS: 0.9 % Sodium Chloride 1,000 ML IVC SCH (08:15)
[2019-12-23 11:21] VITALS: BP 161/80
[2019-12-23] MEDS: *HR* Heparin 5,000 UNIT/ML VIAL IVP PRN (11:42)
[2019-12-23] MEDS: Octreotide 400 MCG in 0.9 % Sodium Chloride 100 ML IVC SCH (13:19)
[2019-12-23] MEDS ORDERED: Clinimix E 5%-15% SOLUTION 2,000 ML with MVI, adult with vitamin K 10 ML IVC SCH (17:00)
== END 2019-12-23 16:11 | disposition short-term general hospital (02) | DRG 393 ==
LOC: EMEROOARM 12:16 → 2ANU 12:16 → SUATTDRO 15:59 → 2ANU 16:50
PROVIDERS: ADMIT Family Medicine; ATTEND Family Medicine

== ENCOUNTER 2020-01-18 16:48 | Inpatient (IN) ==
[2020-01-18 18:03] LABS: Red Cell Distribution Width 19.9 % (11.5-14.5)
[2020-01-18 18:05] LABS: Basophils # 0.1 K/mcL (0.0-0.2); Basophils % 0.6 %; Eosinophils % 0.4 %; Hematocrit 28.9 % (37.5-50.1); Hemoglobin 8.6 g/dL (12.9-16.9); Immature Granulocytes % 0.6 % (0-4); Lymphocytes # 1.2 K/mcL (0.6-4.6); Lymphocytes % 15.4 %; Mean Corpuscular HGB Conc 29.8 g/dL (31.6-35.5); Mean Corpuscular Hemoglobin 30.3 pg (28.0-33.3); Mean Corpuscular Volume 101.8 fL (83.0-100.0); Mean Platelet Volume 11.1 fL (9.4-12.4); Monocytes % 13.3 %; Platelet Count 264 K/mcL (140-400); Red Blood Count 2.84 M/mcL (4.19-5.50); Segmented Neutrophils % 69.7 %; White Blood Count 7.8 K/mcL (4.3-11.1)
[2020-01-18 18:08] LABS: INR 3.5; Prothrombin Time 40.4 Seconds (9.4-12.1)
[2020-01-18 18:11] LABS: Activated Partial Thrombo Time 60.5 Seconds (26.0-36.0)
[2020-01-18 18:12] LABS: Neutrophils # 5.4 K/mcL (1.6-8.9)
[2020-01-18] MEDS: 0.9 % Sodium Chloride 1,000 ML IVC SCH ×3 (18:12→18:50)
[2020-01-18 18:47] LABS: Bilirubin,Urine Large (Negative); Blood,Urine Large (Negative); Clarity,Urine Cloudy (Clear); Color,Urine Red (Yellow); Glucose,Urine (UA) >=1000 mg/dL (Normal); Ketones,Urine 15 mg/dL (Negative); Leukocyte Esterase,Urine Large (Negative); Nitrite,Urine Positive (Negative); PH,Urine 6.5 pH Units (5.0-8.0); Protein,Urine >=300 mg/dL (Neg-Trace); Specific Gravity,Urine 1.026 (1.010-1.025); Urobilinogen,Urine Normal (Normal)
[2020-01-18 18:58] LABS: ABG Base Excess 4 mEq/L (-2 to 3); ABG HCO3 29 mEq/L (21-27); ABG Oxygen Saturation 87 % (95-98); ABG PCO2 45 mmHg (35-45); ABG PH 7.41 pH Units (7.32-7.45); ABG PO2 53 mmHg (85-104); ABG TCO2 30 mEq/L (20-26)
[2020-01-18 19:01] LABS: Alanine Aminotransferase 14 Units/L (7-52); Albumin 2.4 g/dL (3.5-5.7); Albumin/Globulin Ratio 0.5 (1.1-2.2); Alkaline Phosphatase 108 Units/L (34-104); Aspartate Amino Transferase 20 Units/L (13-39); BUN/Creatinine Ratio 30 (6-26); Bilirubin,Direct 0.3 mg/dL (0.0-0.2); Bilirubin,Total 0.3 mg/dL (0.3-1.0); Blood Urea Nitrogen 64 mg/dL (8-23); Carbon Dioxide 28 mEq/L (23-29); Chloride 90 mEq/L (98-107); Globulin 4.6 g/dL (2.4-3.5); Glucose 827 mg/dL (70-105); Magnesium 2.2 mg/dL (1.6-2.6); Osmolality,Calculated 327 (280-300); Phosphorous 3.8 mg/dL (2.7-4.5); Potassium 5.1 mEq/L (3.5-5.1); Sodium 129 mEq/L (136-145); Troponin I < 0.03 ng/mL (< 0.04); eGFR For African Americans 37 (> 60); eGFR For Non-African Americans 31 (> 60)
[2020-01-18] MEDS ORDERED: Insulin Human Regular 10 UNIT in 0.9 % Sodium Chloride 10 ML IV ONE (19:15)
[2020-01-18] MEDS ORDERED: cefTRIAXone 1,000 MG in 0.9 % Sodium Chloride Mini Bag 100 ML IVPB ONE (19:15)
[2020-01-18 20:34] LABS: Hypochromasia Present (Not Present); Polychromasia 1+ (Not Present)
[2020-01-18 20:36] LABS: Anisocytosis 2+ (Not Present); Macrocytosis Present (Not Present); Microcytosis Present (Not Present); Platelet Estimate Normal (Normal)
[2020-01-18] MEDS ORDERED: Naloxone 0.4 MG/ML INJ IVP PRN (23:39)
[2020-01-18] MEDS ORDERED: Dextrose Gel 15 GM/37.5 ML TUBE PO PRN ×2 (23:48)
[2020-01-18] MEDS ORDERED: D5% in Water 1,000 ML IVC PRN (23:48)
[2020-01-18] MEDS ORDERED: *HR* Dextrose 50 % in Water (Syg) 50 ML SYRINGE IVP PRN (23:48)
[2020-01-18] MEDS ORDERED: Insulin LISPRO 300 UNITS/3 ML VIAL SQ ONE (23:50)
[2020-01-19] MEDS ORDERED: Insulin LISPRO 300 UNITS/3 ML VIAL SQ SCH
[2020-01-19] MEDS ORDERED: Insulin Human Regular 5 UNIT in 0.9 % Sodium Chloride 10 ML IV ONE (00:45)
[2020-01-19] MEDS ORDERED: Ipratropium/Albuterol Neb 3 ML IH PRN (01:08)
[2020-01-19 03:14] LABS: Basophils % 0.4 %; Eosinophils # 0.1 K/mcL (0.0-0.6); Eosinophils % 1.1 %; Hemoglobin 8.3 g/dL (12.9-16.9); INR 3.5; Immature Granulocytes % 0.4 % (0-4); Lymphocytes # 0.9 K/mcL (0.6-4.6); Lymphocytes % 10.1 %; Mean Corpuscular HGB Conc 30.7 g/dL (31.6-35.5); Mean Corpuscular Volume 97.5 fL (83.0-100.0); Mean Platelet Volume 10.8 fL (9.4-12.4); Monocytes # 0.9 K/mcL (0.0-1.3); Monocytes % 9.3 %; Neutrophils # 7.3 K/mcL (1.6-8.9); Platelet Count 249 K/mcL (140-400); Prothrombin Time 39.3 Seconds (9.4-12.1); Red Blood Count 2.77 M/mcL (4.19-5.50); Red Cell Distribution Width 19.8 % (11.5-14.5); Segmented Neutrophils % 78.7 %; White Blood Count 9.2 K/mcL (4.3-11.1)
[2020-01-19] MEDS: Insulin LISPRO 300 UNITS/3 ML VIAL SQ SCH ×5 (03:41→21:39)
[2020-01-19] MEDS: Ipratropium/Albuterol Neb 3 ML IH SCH ×5 (03:43→20:12)
[2020-01-19 03:45] LABS: Albumin 2.2 g/dL (3.5-5.7); Albumin/Globulin Ratio 0.5 (1.1-2.2); Bilirubin,Total 0.2 mg/dL (0.3-1.0); Calcium 7.8 mg/dL (8.6-10.3); Globulin 4.4 g/dL (2.4-3.5); Magnesium 1.9 mg/dL (1.6-2.6); Phosphorous 3.7 mg/dL (2.7-4.5); Potassium 4.2 mEq/L (3.5-5.1); Total Protein 6.6 g/dL (6.4-8.9)
[2020-01-19] MEDS: Budesonide/Formoterol 80/4.5 1 PUFF INH IH SCH ×3 (07:48→21:19)
[2020-01-19] MEDS: Piperacillin/Tazobactam 3.375 GM in 0.9 % Sodium Chloride Mini Bag 100 ML IVPB SCH ×3 (08:26→23:45)
[2020-01-19] MEDS: Folic Acid 1 MG TABLET PO SCH (08:27)
[2020-01-19] MEDS: DilTIAZem CD (24hr) 120 MG CAP.ER.24H PO SCH (08:27)
[2020-01-19] MEDS: Sennosides/Docusate Sodium TABLET PO SCH ×2 (08:27→21:38)
[2020-01-19] MEDS ORDERED: Famotidine 20 MG TABLET PO SCH (09:00)
[2020-01-19] MEDS: Insulin DETEMIR 100 UNIT/ML X5UNITS SQ SCH (21:39)
[2020-01-20] MEDS: *HR* OxyCODONE Immed Rel 5 MG TABLET PO PRN (04:07)
[2020-01-20 04:45] LABS: Basophils # 0.1 K/mcL (0.0-0.2); Basophils % 0.7 %; Eosinophils # 0.3 K/mcL (0.0-0.6); Eosinophils % 3.4 %; Hematocrit 27.5 % (37.5-50.1); Immature Granulocytes % 0.6 % (0-4); Lymphocytes # 1.4 K/mcL (0.6-4.6); Lymphocytes % 16.2 %; Mean Corpuscular HGB Conc 29.1 g/dL (31.6-35.5); Mean Corpuscular Hemoglobin 29.2 pg (28.0-33.3); Mean Corpuscular Volume 100.4 fL (83.0-100.0); Mean Platelet Volume 10.9 fL (9.4-12.4); Monocytes % 10.8 %; Platelet Count 263 K/mcL (140-400); Red Blood Count 2.74 M/mcL (4.19-5.50); Segmented Neutrophils % 68.3 %; White Blood Count 8.8 K/mcL (4.3-11.1)
[2020-01-20 04:48] LABS: INR 2.9; Prothrombin Time 32.5 Seconds (9.4-12.1)
[2020-01-20 05:10] LABS: Calcium 8.1 mg/dL (8.6-10.3); Potassium 4.3 mEq/L (3.5-5.1)
[2020-01-20] MEDS: Budesonide/Formoterol 80/4.5 1 PUFF INH IH SCH ×2 (07:32→20:47)
[2020-01-20] MEDS: Piperacillin/Tazobactam 3.375 GM in 0.9 % Sodium Chloride Mini Bag 100 ML IVPB SCH ×2 (08:51→16:25)
[2020-01-20] MEDS: Sennosides/Docusate Sodium TABLET PO SCH ×2 (08:53→21:29)
[2020-01-20] MEDS: Famotidine 20 MG TABLET PO SCH (08:53)
[2020-01-20] MEDS: Folic Acid 1 MG TABLET PO SCH (08:54)
[2020-01-20] MEDS: DilTIAZem CD (24hr) 120 MG CAP.ER.24H PO SCH (08:54)
[2020-01-20] MEDS: Insulin LISPRO 300 UNITS/3 ML VIAL SQ SCH ×4 (08:55→21:29)
[2020-01-20] MEDS ORDERED: Aspirin Enteric Coated 81 MG Tablet PO SCH (09:00)
[2020-01-20] MEDS: Fluconazole 200 MG/100 ML 100 MG/50 ML BAG IVPB SCH (11:13)
[2020-01-20] MEDS: Insulin DETEMIR 100 UNIT/ML X5UNITS SQ SCH (21:29)
[2020-01-21] MEDS: Piperacillin/Tazobactam 3.375 GM in 0.9 % Sodium Chloride Mini Bag 100 ML IVPB SCH ×3 (00:27→16:33)
[2020-01-21 04:45] LABS: INR 2.1; Prothrombin Time 24.2 Seconds (9.4-12.1)
[2020-01-21 04:51] LABS: Basophils # 0.1 K/mcL (0.0-0.2); Basophils % 0.7 %; Eosinophils # 0.4 K/mcL (0.0-0.6); Eosinophils % 4.4 %; Hematocrit 24.6 % (37.5-50.1); Hemoglobin 7.5 g/dL (12.9-16.9); Immature Granulocytes % 0.6 % (0-4); Lymphocytes # 1.6 K/mcL (0.6-4.6); Lymphocytes % 18.7 %; Mean Corpuscular HGB Conc 30.5 g/dL (31.6-35.5); Mean Corpuscular Hemoglobin 30.2 pg (28.0-33.3); Mean Corpuscular Volume 99.2 fL (83.0-100.0); Mean Platelet Volume 10.7 fL (9.4-12.4); Monocytes # 0.8 K/mcL (0.0-1.3); Monocytes % 9.4 %; Neutrophils # 5.6 K/mcL (1.6-8.9); Platelet Count 253 K/mcL (140-400); Red Blood Count 2.48 M/mcL (4.19-5.50); Red Cell Distribution Width 19.2 % (11.5-14.5); Segmented Neutrophils % 66.2 %; White Blood Count 8.4 K/mcL (4.3-11.1)
[2020-01-21 05:08] LABS: Calcium 8.1 mg/dL (8.6-10.3); Potassium 4.6 mEq/L (3.5-5.1)
[2020-01-21] MEDS: Budesonide/Formoterol 80/4.5 1 PUFF INH IH SCH ×2 (07:57→20:06)
[2020-01-21] MEDS: Sennosides/Docusate Sodium TABLET PO SCH ×2 (08:15→21:17)
[2020-01-21] MEDS: Famotidine 20 MG TABLET PO SCH (08:15)
[2020-01-21] MEDS: DilTIAZem CD (24hr) 240 MG CAP.ER.24H PO SCH (08:15)
[2020-01-21] MEDS: Insulin LISPRO 300 UNITS/3 ML VIAL SQ SCH ×4 (08:17→21:18)
[2020-01-21] MEDS: Fluconazole 200 MG/100 ML 100 MG/50 ML BAG IVPB SCH (08:17)
[2020-01-21] MEDS: Ondansetron 4 MG/2 ML VIAL IVP PRN (14:15)
[2020-01-21] MEDS: *HR* OxyCODONE Immed Rel 5 MG TABLET PO PRN (18:29)
[2020-01-21] MEDS ORDERED: Ondansetron 4 MG/2 ML VIAL IVP ONE (18:34)
[2020-01-21] MEDS: Insulin DETEMIR 100 UNIT/ML X5UNITS SQ SCH (21:18)
[2020-01-21 22:25] LABS: Hematocrit 27.6 % (37.5-50.1); Hemoglobin 8.3 g/dL (12.9-16.9)
[2020-01-22] MEDS: Piperacillin/Tazobactam 3.375 GM in 0.9 % Sodium Chloride Mini Bag 100 ML IVPB SCH ×4 (00:06→23:50)
[2020-01-22 01:31] LABS: Adenovirus F 40/41 PCR Not detected (Not detect); Astrovirus PCR Not detected (Not detect); C.difficile Toxin A/B Gene PCR Not detected (Not detect); Campylobacter by PCR Not detected (Not detect); Cryptosporidium by PCR Not detected (Not detect); Cyclospora cayetanensis PCR Not detected (Not detect); E. coli O157 by PCR Not detected (Not detect); Entamoeba histolytica PCR Not detected (Not detect); Enteroaggregative E.coli(EAEC) Not detected (Not detect); Enteropathogenic E.coli(EPEC) Not detected (Not detect); Enterotoxigenic E.coli (ETEC) Not detected (Not detect); Giardia lamblia PCR Not detected (Not detect); Norovirus GI/GII PCR Not detected (Not detect); Plesiomonas shigelloides PCR Not detected (Not detect); Rotavirus A PCR Not detected (Not detect); Salmonella PCR Not detected (Not detect); Sapovirus PCR Not detected (Not detect); Shig/EnteroinvasiveE coli EIEC Not detected (Not detect); Shigalike tox-prod E coli STEC Not detected (Not detect); Vibrio PCR Not detected (Not detect); Vibrio cholerae PCR Not detected (Not detect); Yersinia enterocolitica PCR Not detected (Not detect)
[2020-01-22 06:25] LABS: Basophils % 0.4 %; Eosinophils # 0.2 K/mcL (0.0-0.6); Eosinophils % 3.4 %; Hematocrit 28.5 % (37.5-50.1); Hemoglobin 8.5 g/dL (12.9-16.9); Immature Granulocytes % 0.9 % (0-4); Lymphocytes # 1.2 K/mcL (0.6-4.6); Lymphocytes % 16.5 %; Mean Corpuscular HGB Conc 29.8 g/dL (31.6-35.5); Mean Corpuscular Hemoglobin 29.9 pg (28.0-33.3); Mean Corpuscular Volume 100.4 fL (83.0-100.0); Mean Platelet Volume 10.7 fL (9.4-12.4); Monocytes # 0.6 K/mcL (0.0-1.3); Monocytes % 8.8 %; Neutrophils # 4.9 K/mcL (1.6-8.9); Platelet Count 284 K/mcL (140-400); Red Blood Count 2.84 M/mcL (4.19-5.50); Red Cell Distribution Width 18.8 % (11.5-14.5)
[2020-01-22 06:39] LABS: INR 1.7; Prothrombin Time 19.7 Seconds (9.4-12.1)
[2020-01-22 06:52] LABS: Calcium 8.3 mg/dL (8.6-10.3); Potassium 4.6 mEq/L (3.5-5.1)
[2020-01-22] MEDS: Insulin LISPRO 300 UNITS/3 ML VIAL SQ SCH ×4 (08:31→21:15)
[2020-01-22] MEDS: Famotidine 20 MG TABLET PO SCH (08:33)
[2020-01-22] MEDS: DilTIAZem CD (24hr) 240 MG CAP.ER.24H PO SCH (08:33)
[2020-01-22] MEDS: Sennosides/Docusate Sodium TABLET PO SCH ×2 (08:34→21:13)
[2020-01-22] MEDS: Fluconazole 200 MG/100 ML 100 MG/50 ML BAG IVPB SCH (08:34)
[2020-01-22] MEDS: Budesonide/Formoterol 80/4.5 1 PUFF INH IH SCH (10:20)
[2020-01-22] MEDS ORDERED: Aminoglycoside Consult 1 EACH MC ONE (15:01)
[2020-01-22] MEDS: Ondansetron 4 MG/2 ML VIAL IVP PRN (17:54)
[2020-01-22] MEDS: Insulin DETEMIR 100 UNIT/ML X5UNITS SQ SCH (21:13)
[2020-01-22] MEDS: *HR* OxyCODONE Immed Rel 5 MG TABLET PO PRN (21:29)
[2020-01-23 06:53] LABS: Hemoglobin 8.6 g/dL (12.9-16.9)
[2020-01-23] MEDS: Insulin LISPRO 300 UNITS/3 ML VIAL SQ SCH ×2 (08:21→12:55)
[2020-01-23] MEDS ORDERED: Aspirin Enteric Coated 81 MG Tablet PO SCH (09:00)
[2020-01-23] MEDS: Piperacillin/Tazobactam 3.375 GM in 0.9 % Sodium Chloride Mini Bag 100 ML IVPB SCH (09:16)
[2020-01-23] MEDS: Famotidine 20 MG TABLET PO SCH (09:16)
[2020-01-23] MEDS: Sennosides/Docusate Sodium TABLET PO SCH (09:16)
[2020-01-23] MEDS: DilTIAZem CD (24hr) 240 MG CAP.ER.24H PO SCH (09:17)
[2020-01-23] MEDS: Fluconazole 200 MG/100 ML 100 MG/50 ML BAG IVPB SCH (09:17)
[2020-01-23] MEDS: *HR* OxyCODONE Immed Rel 5 MG TABLET PO PRN (09:17)
[2020-01-23 11:02] VITALS: BP 138/77
[2020-01-24] MEDS ORDERED: Fluconazole 100 MG TABLET PO SCH (09:00)
== END 2020-01-23 15:02 | DRG 698 ==
LOC: EMEROOARM 16:48 → 3ANU 16:48 → SUATTDRO 01-19 11:21
PROVIDERS: ADMIT Internal Medicine; ATTEND Internal Medicine

== ENCOUNTER 2020-01-25 14:09 | Observation (INO) ==
[2020-01-25] MEDS ORDERED: Ondansetron 4 MG/2 ML VIAL IVP STA (14:26)
[2020-01-25] MEDS ORDERED: Morphine Sulfate 2 MG/ML SYRINGE IVP ONE (14:26)
[2020-01-25] MEDS ORDERED: Isovue-370 500 ML BOTTLE IVP ONE (14:27)
[2020-01-25 14:53] LABS: Basophils % 0.2 %; Eosinophils % 0.2 %; Hematocrit 35.6 % (37.5-50.1); Hemoglobin 10.5 g/dL (12.9-16.9); Immature Granulocytes % 0.5 % (0-4); Lymphocytes # 0.9 K/mcL (0.6-4.6); Lymphocytes % 4.5 %; Mean Corpuscular HGB Conc 29.5 g/dL (31.6-35.5); Mean Corpuscular Hemoglobin 29.7 pg (28.0-33.3); Mean Corpuscular Volume 100.6 fL (83.0-100.0); Mean Platelet Volume 10.5 fL (9.4-12.4); Monocytes # 0.5 K/mcL (0.0-1.3); Monocytes % 2.7 %; Platelet Count 462 K/mcL (140-400); Red Blood Count 3.54 M/mcL (4.19-5.50); Red Cell Distribution Width 19.2 % (11.5-14.5); Segmented Neutrophils % 91.9 %
[2020-01-25 14:54] LABS: Neutrophils # 17.7 K/mcL (1.6-8.9); White Blood Count 19.3 K/mcL (4.3-11.1)
[2020-01-25 17:28] LABS: Calcium 9.1 mg/dL (8.6-10.3); Potassium 5.9 mEq/L (3.5-5.1)
[2020-01-25] MEDS ORDERED: Ondansetron 4 MG/2 ML VIAL IVP ONE (17:45)
[2020-01-25] MEDS ORDERED: 0.9 % Sodium Chloride 1,000 ML IVC ONE (19:15)
[2020-01-25] MEDS ORDERED: Naloxone 0.4 MG/ML INJ IVP PRN (19:23)
[2020-01-25] MEDS ORDERED: Ipratropium/Albuterol Neb 3 ML IH PRN (19:33)
[2020-01-25] MEDS ORDERED: *HR* Dextrose 50 % in Water (Syg) 50 ML SYRINGE IVP PRN (19:36)
[2020-01-25] MEDS ORDERED: Dextrose Gel 15 GM/37.5 ML TUBE PO PRN ×2 (19:36)
[2020-01-25] MEDS ORDERED: D5% in Water 1,000 ML IVC PRN (19:36)
[2020-01-25] MEDS: Ondansetron 4 MG/2 ML VIAL IVP PRN (20:56)
[2020-01-25] MEDS ORDERED: Ertapenem 1,000 MG in 0.9 % Sodium Chloride Mini Bag 100 ML IVPB SCH (21:00)
[2020-01-25 21:03] LABS: Albumin/Globulin Ratio 0.6 (1.1-2.2); Bilirubin,Direct 0.3 mg/dL (0.0-0.2); Bilirubin,Total 0.3 mg/dL (0.3-1.0); Globulin 4.9 g/dL (2.4-3.5); Total Protein 7.9 g/dL (6.4-8.9)
[2020-01-25] MEDS: Insulin LISPRO 300 UNITS/3 ML VIAL SQ SCH (21:08)
[2020-01-25] MEDS: Lactobacillus 1 EACH CAP.SPRINK PO SCH (21:10)
[2020-01-25] MEDS: Famotidine 20 MG TABLET PO SCH (21:10)
[2020-01-25] MEDS: Ringers Solution, Lactated 1,000 ML IVC SCH (22:16)
[2020-01-25] MEDS ORDERED: *HR* Promethazine 25 MG/ML VIAL IVP PRN (22:36)
[2020-01-26] MEDS: *HR* Heparin 5,000 UNIT/ML VIAL SQ SCH ×3 (05:12→21:38)
[2020-01-26 06:17] LABS: Basophils % 0.2 %; Eosinophils # 0.1 K/mcL (0.0-0.6); Eosinophils % 0.6 %; Hematocrit 29.8 % (37.5-50.1); Immature Granulocytes % 0.5 % (0-4); Lymphocytes # 1.7 K/mcL (0.6-4.6); Lymphocytes % 12.1 %; Mean Corpuscular HGB Conc 30.2 g/dL (31.6-35.5); Mean Corpuscular Volume 99.3 fL (83.0-100.0); Monocytes # 0.7 K/mcL (0.0-1.3); Monocytes % 4.8 %; Neutrophils # 11.2 K/mcL (1.6-8.9); Platelet Count 412 K/mcL (140-400); Red Cell Distribution Width 19.3 % (11.5-14.5); Segmented Neutrophils % 81.8 %; White Blood Count 13.7 K/mcL (4.3-11.1)
[2020-01-26 06:21] LABS: INR 1.3; Prothrombin Time 15.1 Seconds (9.4-12.1)
[2020-01-26 06:33] LABS: Calcium 8.8 mg/dL (8.6-10.3); Magnesium 1.7 mg/dL (1.6-2.6); Potassium 4.5 mEq/L (3.5-5.1)
[2020-01-26 06:43] LABS: % Iron Saturation 10 % (20-55); Iron 22 mcg/dL (65-175); Transferrin 165 mg/dL (203-362)
[2020-01-26 06:53] LABS: Ferritin 298 ng/mL (20-250)
[2020-01-26 06:58] LABS: Folate 15.7 ng/mL (3.0-16.0)
[2020-01-26] MEDS ORDERED: Insulin DETEMIR 100 UNIT/ML X5UNITS SQ SCH (09:00)
[2020-01-26] MEDS: Aspirin Enteric Coated 81 MG Tablet PO SCH (09:09)
[2020-01-26] MEDS: Cholecalciferol (D-3) 1,000 UNIT (25MCG) TABLET PO SCH (09:09)
[2020-01-26] MEDS: Lactobacillus 1 EACH CAP.SPRINK PO SCH ×2 (09:09→21:38)
[2020-01-26] MEDS: Furosemide 40 MG TABLET PO SCH (09:09)
[2020-01-26] MEDS: DilTIAZem CD (24hr) 240 MG CAP.ER.24H PO SCH (09:09)
[2020-01-26] MEDS: Fluconazole 100 MG TABLET PO SCH (09:09)
[2020-01-26] MEDS: Ringers Solution, Lactated 1,000 ML IVC SCH (09:10)
[2020-01-26] MEDS: Famotidine 20 MG TABLET PO SCH (09:12)
[2020-01-26] MEDS: Insulin LISPRO 300 UNITS/3 ML VIAL SQ SCH ×3 (09:12→22:20)
[2020-01-26] MEDS: Piperacillin/Tazobactam 3.375 GM in 0.9 % Sodium Chloride Mini Bag 100 ML IVPB SCH ×2 (15:40→23:19)
[2020-01-26] MEDS ORDERED: Insulin LISPRO 300 UNITS/3 ML VIAL SQ SCH (18:00)
[2020-01-26] MEDS: *HR* OxyCODONE Immed Rel 5 MG TABLET PO PRN (21:38)
[2020-01-27] MEDS: Ringers Solution, Lactated 1,000 ML IVC SCH (05:03)
[2020-01-27] MEDS: *HR* Heparin 5,000 UNIT/ML VIAL SQ SCH ×2 (05:09→14:07)
[2020-01-27 06:35] LABS: Basophils % 0.4 %; Eosinophils # 0.1 K/mcL (0.0-0.6); Eosinophils % 1.4 %; Hematocrit 28.8 % (37.5-50.1); Hemoglobin 8.9 g/dL (12.9-16.9); Immature Granulocytes % 0.8 % (0-4); Lymphocytes # 1.3 K/mcL (0.6-4.6); Lymphocytes % 14.6 %; Mean Corpuscular HGB Conc 30.9 g/dL (31.6-35.5); Mean Corpuscular Hemoglobin 30.5 pg (28.0-33.3); Mean Corpuscular Volume 98.6 fL (83.0-100.0); Mean Platelet Volume 9.7 fL (9.4-12.4); Monocytes # 0.6 K/mcL (0.0-1.3); Monocytes % 6.3 %; Platelet Count 404 K/mcL (140-400); Red Blood Count 2.92 M/mcL (4.19-5.50); Red Cell Distribution Width 19.1 % (11.5-14.5); Segmented Neutrophils % 76.5 %; White Blood Count 9.2 K/mcL (4.3-11.1)
[2020-01-27 06:50] LABS: Calcium 8.6 mg/dL (8.6-10.3); Potassium 4.2 mEq/L (3.5-5.1)
[2020-01-27] MEDS ORDERED: Insulin LISPRO 300 UNITS/3 ML VIAL SQ SCH (07:30)
[2020-01-27] MEDS: DilTIAZem CD (24hr) 240 MG CAP.ER.24H PO SCH (09:11)
[2020-01-27] MEDS: Cholecalciferol (D-3) 1,000 UNIT (25MCG) TABLET PO SCH (09:11)
[2020-01-27] MEDS: Lactobacillus 1 EACH CAP.SPRINK PO SCH ×2 (09:12→20:49)
[2020-01-27] MEDS: Furosemide 40 MG TABLET PO SCH (09:12)
[2020-01-27] MEDS: Fluconazole 100 MG TABLET PO SCH (09:12)
[2020-01-27] MEDS: Aspirin Enteric Coated 81 MG Tablet PO SCH (09:12)
[2020-01-27] MEDS ORDERED: 0.9 % Sodium Chloride 1,000 ML IVC SCH (09:15)
[2020-01-27] MEDS: Piperacillin/Tazobactam 3.375 GM in 0.9 % Sodium Chloride Mini Bag 100 ML IVPB SCH ×2 (09:16→15:25)
[2020-01-27] MEDS: Famotidine 20 MG TABLET PO SCH (09:18)
[2020-01-27] MEDS: Insulin DETEMIR 100 UNIT/ML X5UNITS SQ SCH (09:19)
[2020-01-27] MEDS: Acetaminophen 325 MG TABLET PO PRN (09:19)
[2020-01-27] MEDS ORDERED: Aminoglycoside Consult 1 EACH MC ONE (19:32)
[2020-01-27] MEDS: Budesonide/Formoterol 80/4.5 1 PUFF INH IH SCH (20:36)
[2020-01-27] MEDS: *HR* OxyCODONE Immed Rel 5 MG TABLET PO PRN (20:42)
[2020-01-27] MEDS: Insulin LISPRO 300 UNITS/3 ML VIAL SQ SCH (20:48)
[2020-01-28] MEDS: Piperacillin/Tazobactam 3.375 GM in 0.9 % Sodium Chloride Mini Bag 100 ML IVPB SCH ×2 (00:47→09:20)
[2020-01-28] MEDS: *HR* Heparin 5,000 UNIT/ML VIAL SQ SCH ×4 (00:48→21:11)
[2020-01-28 06:15] LABS: Hematocrit 29.1 % (37.5-50.1); Hemoglobin 8.8 g/dL (12.9-16.9); Mean Corpuscular HGB Conc 30.2 g/dL (31.6-35.5); Mean Corpuscular Hemoglobin 29.9 pg (28.0-33.3); Mean Platelet Volume 9.7 fL (9.4-12.4); Platelet Count 420 K/mcL (140-400); Red Blood Count 2.94 M/mcL (4.19-5.50); Red Cell Distribution Width 18.8 % (11.5-14.5); White Blood Count 7.2 K/mcL (4.3-11.1)
[2020-01-28 06:34] LABS: Calcium 8.1 mg/dL (8.6-10.3)
[2020-01-28] MEDS: Aspirin Enteric Coated 81 MG Tablet PO SCH (09:20)
[2020-01-28] MEDS: Lactobacillus 1 EACH CAP.SPRINK PO SCH ×2 (09:20→21:10)
[2020-01-28] MEDS: DilTIAZem CD (24hr) 240 MG CAP.ER.24H PO SCH (09:20)
[2020-01-28] MEDS: Fluconazole 100 MG TABLET PO SCH (09:20)
[2020-01-28] MEDS: Cholecalciferol (D-3) 1,000 UNIT (25MCG) TABLET PO SCH (09:20)
[2020-01-28] MEDS: Furosemide 40 MG TABLET PO SCH (09:21)
[2020-01-28] MEDS: Acetaminophen 325 MG TABLET PO PRN ×2 (09:21→21:10)
[2020-01-28] MEDS: Famotidine 20 MG TABLET PO SCH (09:22)
[2020-01-28] MEDS: Insulin DETEMIR 100 UNIT/ML X5UNITS SQ SCH (09:23)
[2020-01-28] MEDS: Budesonide/Formoterol 80/4.5 1 PUFF INH IH SCH (09:48)
[2020-01-28] MEDS: Ondansetron 4 MG/2 ML VIAL IVP PRN (12:31)
[2020-01-28] MEDS ORDERED: Ondansetron ODT 4 MG TAB.RAPDIS SL ONE (12:43)
[2020-01-28] MEDS ORDERED: Ondansetron ODT 4 MG TAB.RAPDIS SL PRN (12:43)
[2020-01-28] MEDS: Amoxicillin/Clavulanate 500 MG TABLET PO SCH (16:17)
[2020-01-28] MEDS: Insulin LISPRO 300 UNITS/3 ML VIAL SQ SCH (21:11)
[2020-01-29] MEDS: *HR* Heparin 5,000 UNIT/ML VIAL SQ SCH ×2 (06:02→15:29)
[2020-01-29] MEDS ORDERED: Scopolamine Patch 1.5 MG PATCH.TD72 TD ONE (07:30)
[2020-01-29] MEDS ORDERED: Isovue-370 500 ML BOTTLE IVP ONE (07:46)
[2020-01-29] MEDS: Furosemide 40 MG TABLET PO SCH (08:18)
[2020-01-29] MEDS: Famotidine 20 MG TABLET PO SCH (08:18)
[2020-01-29] MEDS: DilTIAZem CD (24hr) 240 MG CAP.ER.24H PO SCH (08:18)
[2020-01-29] MEDS: Aspirin Enteric Coated 81 MG Tablet PO SCH (08:18)
[2020-01-29] MEDS: Amoxicillin/Clavulanate 500 MG TABLET PO SCH (08:18)
[2020-01-29] MEDS: Cholecalciferol (D-3) 1,000 UNIT (25MCG) TABLET PO SCH (08:18)
[2020-01-29] MEDS: Lactobacillus 1 EACH CAP.SPRINK PO SCH (08:18)
[2020-01-29] MEDS: *HR* OxyCODONE Immed Rel 5 MG TABLET PO PRN (08:26)
[2020-01-29] MEDS: Insulin DETEMIR 100 UNIT/ML X5UNITS SQ SCH (08:28)
[2020-01-29 09:41] LABS: Basophils % 0.4 %; Eosinophils # 0.1 K/mcL (0.0-0.6); Eosinophils % 0.6 %; Hematocrit 33.8 % (37.5-50.1); Hemoglobin 10.1 g/dL (12.9-16.9); Immature Granulocytes % 0.6 % (0-4); Lymphocytes # 1.5 K/mcL (0.6-4.6); Lymphocytes % 18.3 %; Mean Corpuscular HGB Conc 29.9 g/dL (31.6-35.5); Mean Corpuscular Hemoglobin 29.2 pg (28.0-33.3); Mean Corpuscular Volume 97.7 fL (83.0-100.0); Monocytes # 0.6 K/mcL (0.0-1.3); Monocytes % 7.2 %; Neutrophils # 6.1 K/mcL (1.6-8.9); Platelet Count 490 K/mcL (140-400); Red Blood Count 3.46 M/mcL (4.19-5.50); Red Cell Distribution Width 18.6 % (11.5-14.5); Segmented Neutrophils % 72.9 %; White Blood Count 8.4 K/mcL (4.3-11.1)
[2020-01-29 10:04] LABS: Magnesium 1.6 mg/dL (1.6-2.6); Phosphorous 4.1 mg/dL (2.7-4.5); Potassium 4.3 mEq/L (3.5-5.1)
[2020-01-29] MEDS ORDERED: Lidocaine -MPF 1% 5 ML AMPUL INFILT ONE (13:10)
[2020-01-29] MEDS ORDERED: D10% in Water 500 ML IVC PRN (13:26)
[2020-01-29] MEDS ORDERED: 0.9 % Sodium Chloride 1,000 ML IVC SCH (14:00)
[2020-01-29 14:28] VITALS: BP 139/82
[2020-01-29] MEDS ORDERED: Insulin LISPRO 300 UNITS/3 ML VIAL SQ SCH ×2 (16:00→18:00)
[2020-01-29] MEDS ORDERED: Clinimix E 5%-15% SOLUTION 2,000 ML with MVI, adult with vitamin K 10 ML IVC SCH (17:00)
[2020-01-30] MEDS ORDERED: Clinimix E 5%-15% SOLUTION 2,000 ML with MVI, adult with vitamin K 10 ML IVC SCH (17:00)
[2020-01-31] MEDS ORDERED: Clinimix E 5%-15% SOLUTION 2,000 ML with MVI, adult with vitamin K 10 ML IVC SCH (17:00)
== END 2020-01-29 17:39 | disposition short-term general hospital (02) ==
LOC: 3ANU 14:09 → EMEROOARM 14:09 → SUATTDRO 19:31 → 3ANU 20:02
PROVIDERS: ADMIT Pharmacist; ATTEND Internal Medicine
PROC: IRDRAIN (2020-01-26 14:00)

== ENCOUNTER 2020-02-18 11:09 | Inpatient (IN) ==
[~2020-02-18 11:09] MED LIST: Aminoglycoside Consult 1 EACH MC ONE
[2020-02-18 11:41] LABS: Hematocrit 30.9 % (37.5-50.1); Hemoglobin 9.5 g/dL (12.9-16.9); Mean Corpuscular HGB Conc 30.7 g/dL (31.6-35.5); Mean Corpuscular Hemoglobin 29.2 pg (28.0-33.3); Mean Corpuscular Volume 95.1 fL (83.0-100.0); Platelet Count 517 K/mcL (140-400); Red Blood Count 3.25 M/mcL (4.19-5.50); Red Cell Distribution Width 17.8 % (11.5-14.5)
[2020-02-18 11:49] LABS: White Blood Count 17.7 K/mcL (4.3-11.1)
[2020-02-18 12:02] LABS: Alanine Aminotransferase 36 Units/L (7-52); Albumin 3.1 g/dL (3.5-5.7); Albumin/Globulin Ratio 0.6 (1.1-2.2); Alkaline Phosphatase 143 Units/L (34-104); Aspartate Amino Transferase 46 Units/L (13-39); BUN/Creatinine Ratio 45 (6-26); Bilirubin,Direct 0.2 mg/dL (0.0-0.2); Bilirubin,Indirect 0.1 mg/dL (0.0-1.0); Bilirubin,Total 0.3 mg/dL (0.3-1.0); Blood Urea Nitrogen 110 mg/dL (8-23); Calcium 9.9 mg/dL (8.6-10.3); Carbon Dioxide 22 mEq/L (23-29); Chloride 96 mEq/L (98-107); Globulin 5.3 g/dL (2.4-3.5); Glucose 289 mg/dL (70-105); Lipase 64 Units/L (11-82); Osmolality,Calculated 325 (280-300); Potassium 4.3 mEq/L (3.5-5.1); Sodium 135 mEq/L (136-145); Total Protein 8.4 g/dL (6.4-8.9); eGFR For African Americans 31 (> 60); eGFR For Non-African Americans 26 (> 60)
[2020-02-18 12:03] LABS: Bilirubin,Urine Negative (Negative); Blood,Urine Large (Negative); Clarity,Urine Turbid (Clear); Color,Urine Yellow (Yellow); Glucose,Urine (UA) Normal (Normal); Ketones,Urine Negative (Negative); Leukocyte Esterase,Urine Large (Negative); Nitrite,Urine Negative (Negative); PH,Urine 5.5 pH Units (5.0-8.0); Protein,Urine 100 mg/dL (Neg-Trace); Urobilinogen,Urine Normal (Normal)
[2020-02-18 12:06] LABS: Bacteria,Urine Many per hpf (None-Few); Hyaline Casts,Urine None Seen per lpf (None-Few); RBC,Urine TNTC per hpf (0-3); Squamous Epithelial Cell,Urine Moderate per lpf (None-Few); WBC,Urine TNTC per hpf (0-3)
[2020-02-18 12:18] LABS: Yeast,Urine Few per hpf (None Seen)
[2020-02-18] MEDS ORDERED: Ondansetron 4 MG/2 ML VIAL IVP ONE (12:30)
[2020-02-18] MEDS ORDERED: *HR* HYDROmorphone 2 MG/ML SYRINGE IVP ONE (12:31)
[2020-02-18] MEDS ORDERED: 0.9 % Sodium Chloride 500 ML IVC ONE (12:43)
[2020-02-18] MEDS ORDERED: *HR* HYDROmorphone (PF) 1 MG/ML SYRINGE IVP ONE (12:45)
[2020-02-18 13:31] LABS: Troponin I < 0.03 ng/mL (< 0.04)
[2020-02-18] MEDS ORDERED: Piperacillin/Tazobactam 3.375 GM in 0.9 % Sodium Chloride Mini Bag 100 ML IVPB ONE (13:54)
[2020-02-18 14:05] LABS: INR 1.3; Prothrombin Time 14.6 Seconds (9.4-12.1)
[2020-02-18] MEDS ORDERED: Naloxone 0.4 MG/ML INJ IVP PRN (14:28)
[2020-02-18] MEDS ORDERED: 0.9 % Sodium Chloride 1,000 ML IVC SCH ×2 (14:30→14:55)
[2020-02-18] MEDS ORDERED: Oxymetazoline Nasal SPRAY BOTTLE NS PRN (14:30)
[2020-02-18] MEDS ORDERED: Dextrose Gel 15 GM/37.5 ML TUBE PO PRN ×2 (14:53)
[2020-02-18] MEDS ORDERED: *HR* Dextrose 50 % in Water (Syg) 50 ML SYRINGE IVP PRN (14:53)
[2020-02-18] MEDS ORDERED: D5% in Water 1,000 ML IVC PRN (14:53)
[2020-02-18] MEDS ORDERED: Saline Nasal Spray 44 ML BOTTLE NS PRN (15:05)
[2020-02-18] MEDS: *HR* Heparin 5,000 UNIT/ML VIAL SQ SCH (16:34)
[2020-02-18] MEDS: Insulin LISPRO 300 UNITS/3 ML VIAL SQ SCH ×2 (16:34→22:01)
[2020-02-18] MEDS: Piperacillin/Tazobactam 3.375 GM in 0.9 % Sodium Chloride Mini Bag 100 ML IVPB SCH ×3 (16:41→23:15)
[2020-02-18] MEDS: Ondansetron 4 MG/2 ML VIAL IVP PRN ×2 (17:47→23:54)
[2020-02-18] MEDS: Levalbuterol Neb 1.25 MG/3 ML IH SCH ×2 (17:52→20:21)
[2020-02-18] MEDS ORDERED: *HR* Warfarin 4 MG TABLET PO ONE (18:00)
[2020-02-18] MEDS ORDERED: Warfarin perPT PO PRN (18:00)
[2020-02-18] MEDS: Budesonide/Formoterol 80/4.5 1 PUFF INH IH SCH (20:20)
[2020-02-18 20:44] LABS: Basophils % 0.2 %; Hemoglobin 9.1 g/dL (12.9-16.9); Lymphocytes % 2.8 %; Mean Platelet Volume 11.2 fL (9.4-12.4)
[2020-02-18 20:46] LABS: Basophils # 0.1 K/mcL (0.0-0.2); Hematocrit 30.1 % (37.5-50.1); Immature Granulocytes % 0.7 % (0-4); Lymphocytes # 0.7 K/mcL (0.6-4.6); Mean Corpuscular HGB Conc 30.2 g/dL (31.6-35.5); Mean Corpuscular Hemoglobin 29.3 pg (28.0-33.3); Mean Corpuscular Volume 96.8 fL (83.0-100.0); Monocytes # 0.7 K/mcL (0.0-1.3); Monocytes % 2.6 %; Platelet Count 528 K/mcL (140-400); Red Blood Count 3.11 M/mcL (4.19-5.50); Red Cell Distribution Width 17.9 % (11.5-14.5); Segmented Neutrophils % 93.7 %; White Blood Count 25.8 K/mcL (4.3-11.1)
[2020-02-18 20:49] LABS: Neutrophils # 24.2 K/mcL (1.6-8.9)
[2020-02-18] MEDS ORDERED: *HR* Promethazine 25 MG/ML VIAL IVP ONE (20:57)
[2020-02-18 21:06] LABS: C-Reactive Protein 65 mg/L (Less than 10); Creatine Kinase < 10 Units/L (30-223)
[2020-02-18 21:08] LABS: Platelet Estimate Increased (Normal)
[2020-02-18] MEDS ORDERED: 0.9 % Sodium Chloride 1,000 ML IVC ONE (21:17)
[2020-02-18 21:39] LABS: Adenovirus Not Detected (Not Detect); Bordetella Pertussis Not Detected (Not Detect); Chlamydophila pneumoniae Not Detected (Not Detect); Coronavirus 229E Not Detected (Not Detect); Coronavirus HKU1 Not Detected (Not Detect); Coronavirus NL63 Not Detected (Not Detect); Coronavirus OC43 Not Detected (Not Detect); Human Metapneumovirus Not Detected (Not Detect); Human Rhinovirus/Enterovirus Not Detected (Not Detect); Influenza A Subtype 2009 H1 Not Detected (Not Detect); Influenza B Not Detected (Not Detect); Mycoplasma pneumoniae Not Detected (Not Detect); Parainfluenza Virus 1 Not Detected (Not Detect); Parainfluenza Virus 2 Not Detected (Not Detect); Parainfluenza Virus 3 Not Detected (Not Detect); Parainfluenza Virus 4 Not Detected (Not Detect); Respiratory Syncytial Virus Not Detected (Not Detect)
[2020-02-18] MEDS ORDERED: Vancomycin (wt based) 1,000 MG VIAL IVPB SCH (22:00)
[2020-02-19 03:09] LABS: INR 1.3; Prothrombin Time 14.8 Seconds (9.4-12.1)
[2020-02-19] MEDS: Levalbuterol Neb 1.25 MG/3 ML IH SCH (03:09)
[2020-02-19 03:25] LABS: Albumin 2.8 g/dL (3.5-5.7); Albumin/Globulin Ratio 0.6 (1.1-2.2); Bilirubin,Total 0.3 mg/dL (0.3-1.0); Calcium 8.8 mg/dL (8.6-10.3); Globulin 4.7 g/dL (2.4-3.5); Magnesium 1.8 mg/dL (1.6-2.6); Phosphorous 5.1 mg/dL (2.7-4.5); Potassium 4.8 mEq/L (3.5-5.1); Total Protein 7.5 g/dL (6.4-8.9)
[2020-02-19] MEDS ORDERED: Ondansetron ODT 4 MG TAB.RAPDIS SL ONE (03:31)
[2020-02-19 03:35] LABS: Acinetobacter baumannii by PCR Not Detected (Not Detect); Candida albicans by PCR Not Detected (Not Detect); Candida glabrata by PCR Not Detected (Not Detect); Candida krusei by PCR Not Detected (Not Detect); Candida parapsilosis by PCR Not Detected (Not Detect); Candida tropicalis by PCR Not Detected (Not Detect); Enterobacter cloacae Cmplx PCR Not Detected (Not Detect); Enterococcus by PCR Not Detected (Not Detect); Escherichia coli by PCR DETECTED (Not Detect); Klebsiella oxytoca by PCR Not Detected (Not Detect); Klebsiella pneumoniae by PCR Not Detected (Not Detect); Proteus by PCR Not Detected (Not Detect); Pseudomonas aeruginosa by PCR Not Detected (Not Detect); Serratia marcescens by PCR Not Detected (Not Detect); Staphylococcus aureus by PCR Not Detected (Not Detect); Staphylococcus by PCR Not Detected (Not Detect); Streptococcus agalactiae(B)PCR Not Detected (Not Detect); Streptococcus by PCR Not Detected (Not Detect); Streptococcus pneumoniae PCR Not Detected (Not Detect); Streptococcus pyogenes (A) PCR Not Detected (Not Detect); blaKPC Carbapenem-Resist Gene Not Detected (Not Detect); mecA Methicillin-Resist Gene Not Detected (Not Detect); vanA/B Vancomycin-Resist Genes Not Detected (Not Detect)
[2020-02-19 04:14] LABS: Basophils # 0.1 K/mcL (0.0-0.2); Basophils % 0.3 %; Eosinophils % 0.1 %; Hematocrit 28.3 % (37.5-50.1); Hemoglobin 8.4 g/dL (12.9-16.9); Immature Granulocytes % 0.6 % (0-4); Lymphocytes % 4.9 %; Mean Corpuscular HGB Conc 29.7 g/dL (31.6-35.5); Mean Corpuscular Hemoglobin 29.1 pg (28.0-33.3); Mean Corpuscular Volume 97.9 fL (83.0-100.0); Mean Platelet Volume 11.6 fL (9.4-12.4); Monocytes # 0.7 K/mcL (0.0-1.3); Monocytes % 3.4 %; Neutrophils # 18.7 K/mcL (1.6-8.9); Platelet Count 476 K/mcL (140-400); Red Blood Count 2.89 M/mcL (4.19-5.50); Segmented Neutrophils % 90.7 %; White Blood Count 20.6 K/mcL (4.3-11.1)
[2020-02-19] MEDS: *HR* Heparin 5,000 UNIT/ML VIAL SQ SCH ×2 (05:02→16:43)
[2020-02-19] MEDS ORDERED: INSULIN GLARGINE 15 UNIT SQ SCH (09:00)
[2020-02-19] MEDS ORDERED: Insulin DETEMIR 100 UNIT/ML X5UNITS SQ SCH (09:00)
[2020-02-19] MEDS ORDERED: Furosemide 40 MG TABLET PO SCH (09:00)
[2020-02-19] MEDS: DilTIAZem CD (24hr) 240 MG CAP.ER.24H PO SCH (09:11)
[2020-02-19] MEDS: Insulin LISPRO 300 UNITS/3 ML VIAL SQ SCH ×4 (09:11→20:08)
[2020-02-19] MEDS: Aspirin Enteric Coated 81 MG Tablet PO SCH (09:11)
[2020-02-19] MEDS: Piperacillin/Tazobactam 3.375 GM in 0.9 % Sodium Chloride Mini Bag 100 ML IVPB SCH ×3 (09:13→23:21)
[2020-02-19] MEDS: Insulin DETEMIR 100 UNIT/ML X5UNITS SQ SCH (09:13)
[2020-02-19] MEDS: Levalbuterol 1 PUFF INHALER IH SCH ×3 (11:09→21:46)
[2020-02-19] MEDS: Budesonide/Formoterol 80/4.5 1 PUFF INH IH SCH ×2 (11:10→21:50)
[2020-02-19] MEDS: *HR* HYDROcodone/Acet 5/325 mg TABLET PO PRN (17:57)
[2020-02-19] MEDS ORDERED: *HR* Warfarin 4 MG TABLET PO ONE (18:00)
[2020-02-19] MEDS: Acetaminophen 325 MG TABLET PO PRN (20:27)
[2020-02-19] MEDS: Ondansetron 4 MG/2 ML VIAL IVP PRN (20:28)
[2020-02-20 01:15] LABS: INR 1.4; Prothrombin Time 15.9 Seconds (9.4-12.1)
[2020-02-20 01:18] LABS: Hematocrit 29.9 % (37.5-50.1); Mean Corpuscular HGB Conc 30.1 g/dL (31.6-35.5); Mean Corpuscular Hemoglobin 29.6 pg (28.0-33.3); Mean Corpuscular Volume 98.4 fL (83.0-100.0); Mean Platelet Volume 10.6 fL (9.4-12.4); Platelet Count 429 K/mcL (140-400); Red Blood Count 3.04 M/mcL (4.19-5.50); Red Cell Distribution Width 18.1 % (11.5-14.5); White Blood Count 12.7 K/mcL (4.3-11.1)
[2020-02-20 01:37] LABS: Calcium 8.9 mg/dL (8.6-10.3); Magnesium 1.7 mg/dL (1.6-2.6); Potassium 4.1 mEq/L (3.5-5.1)
[2020-02-20] MEDS: *HR* HYDROcodone/Acet 5/325 mg TABLET PO PRN ×4 (02:48→23:47)
[2020-02-20] MEDS: Levalbuterol 1 PUFF INHALER IH SCH ×4 (04:00→22:20)
[2020-02-20] MEDS: *HR* Heparin 5,000 UNIT/ML VIAL SQ SCH ×2 (05:17→18:19)
[2020-02-20] MEDS: Piperacillin/Tazobactam 3.375 GM in 0.9 % Sodium Chloride Mini Bag 100 ML IVPB SCH (08:11)
[2020-02-20] MEDS: DilTIAZem CD (24hr) 240 MG CAP.ER.24H PO SCH (08:22)
[2020-02-20] MEDS: Aspirin Enteric Coated 81 MG Tablet PO SCH (08:22)
[2020-02-20] MEDS: Insulin DETEMIR 100 UNIT/ML X5UNITS SQ SCH (08:22)
[2020-02-20] MEDS: Insulin LISPRO 300 UNITS/3 ML VIAL SQ SCH ×4 (08:23→20:38)
[2020-02-20] MEDS ORDERED: Ertapenem 1,000 MG in 0.9 % Sodium Chloride Mini Bag 100 ML IVPB SCH (09:00)
[2020-02-20] MEDS: Ringers Solution, Lactated 1,000 ML IVC SCH ×2 (09:44→18:19)
[2020-02-20] MEDS: Budesonide/Formoterol 80/4.5 1 PUFF INH IH SCH ×2 (10:50→22:21)
[2020-02-20] MEDS ORDERED: *HR* Warfarin 4 MG TABLET PO ONE (18:00)
[2020-02-20] MEDS: Ondansetron 4 MG/2 ML VIAL IVP PRN ×2 (18:21→23:47)
[2020-02-21] MEDS: Levalbuterol 1 PUFF INHALER IH SCH ×4 (03:57→22:18)
[2020-02-21 05:00] LABS: INR 1.5; Prothrombin Time 17.6 Seconds (9.4-12.1)
[2020-02-21 05:14] LABS: Hematocrit 26.3 % (37.5-50.1); Hemoglobin 7.9 g/dL (12.9-16.9); Mean Corpuscular Hemoglobin 29.3 pg (28.0-33.3); Mean Corpuscular Volume 97.4 fL (83.0-100.0); Mean Platelet Volume 10.8 fL (9.4-12.4); Platelet Count 393 K/mcL (140-400)
[2020-02-21 05:33] LABS: Potassium 3.8 mEq/L (3.5-5.1)
[2020-02-21] MEDS: *HR* Heparin 5,000 UNIT/ML VIAL SQ SCH ×2 (06:00→17:04)
[2020-02-21] MEDS ORDERED: Benzonatate 100 MG CAPSULE PO PRN (07:41)
[2020-02-21] MEDS: DilTIAZem CD (24hr) 240 MG CAP.ER.24H PO SCH (10:00)
[2020-02-21] MEDS: Aspirin Enteric Coated 81 MG Tablet PO SCH (10:00)
[2020-02-21] MEDS: Insulin DETEMIR 100 UNIT/ML X5UNITS SQ SCH (10:00)
[2020-02-21] MEDS: Insulin LISPRO 300 UNITS/3 ML VIAL SQ SCH ×4 (10:01→20:57)
[2020-02-21] MEDS: *HR* HYDROcodone/Acet 5/325 mg TABLET PO PRN (10:28)
[2020-02-21] MEDS: Budesonide/Formoterol 80/4.5 1 PUFF INH IH SCH ×2 (11:07→22:23)
[2020-02-21] MEDS: Ringers Solution, Lactated 1,000 ML IVC SCH (13:10)
[2020-02-21] MEDS ORDERED: Isovue-370 500 ML BOTTLE PO ONE (14:12)
[2020-02-21] MEDS: Ondansetron 4 MG/2 ML VIAL IVP SCH (17:05)
[2020-02-21] MEDS ORDERED: *HR* Warfarin 3 MG TABLET PO ONE (18:00)
[2020-02-21] MEDS: Acetaminophen 325 MG TABLET PO PRN (21:18)
[2020-02-22] MEDS: Ringers Solution, Lactated 1,000 ML IVC SCH (02:26)
[2020-02-22] MEDS: Levalbuterol 1 PUFF INHALER IH SCH ×2 (03:42→10:05)
[2020-02-22] MEDS: *HR* Heparin 5,000 UNIT/ML VIAL SQ SCH ×2 (05:50→16:44)
[2020-02-22] MEDS: Insulin DETEMIR 100 UNIT/ML X5UNITS SQ SCH (07:38)
[2020-02-22] MEDS: Aspirin Enteric Coated 81 MG Tablet PO SCH (07:38)
[2020-02-22] MEDS: Ondansetron 4 MG/2 ML VIAL IVP SCH ×3 (07:38→12:25)
[2020-02-22] MEDS: DilTIAZem CD (24hr) 240 MG CAP.ER.24H PO SCH (07:38)
[2020-02-22] MEDS: Insulin LISPRO 300 UNITS/3 ML VIAL SQ SCH ×4 (07:39→22:09)
[2020-02-22] MEDS: *HR* HYDROcodone/Acet 5/325 mg TABLET PO PRN (08:12)
[2020-02-22 08:30] LABS: Hemoglobin 8.4 g/dL (12.9-16.9)
[2020-02-22 08:31] LABS: Hematocrit 28.3 % (37.5-50.1); Mean Corpuscular HGB Conc 29.7 g/dL (31.6-35.5); Mean Corpuscular Hemoglobin 29.2 pg (28.0-33.3); Mean Corpuscular Volume 98.3 fL (83.0-100.0); Mean Platelet Volume 10.8 fL (9.4-12.4); Platelet Count 404 K/mcL (140-400); Red Blood Count 2.88 M/mcL (4.19-5.50); Red Cell Distribution Width 17.9 % (11.5-14.5); White Blood Count 29.6 K/mcL (4.3-11.1)
[2020-02-22 08:50] LABS: Calcium 9.9 mg/dL (8.6-10.3)
[2020-02-22] MEDS: Budesonide/Formoterol 80/4.5 1 PUFF INH IH SCH ×2 (10:06→20:13)
[2020-02-22] MEDS ORDERED: Levalbuterol 1 PUFF INHALER IH PRN (13:45)
[2020-02-22] MEDS ORDERED: 0.9 % Sodium Chloride 1,000 ML IVC SCH (14:15)
[2020-02-22] MEDS: Haloperidol Lactate 5 MG/ML VIAL IVP SCH (14:21)
[2020-02-22 14:23] LABS: Hematocrit 28.6 % (37.5-50.1); Hemoglobin 8.5 g/dL (12.9-16.9); Mean Corpuscular HGB Conc 29.7 g/dL (31.6-35.5); Mean Corpuscular Hemoglobin 29.6 pg (28.0-33.3); Mean Corpuscular Volume 99.7 fL (83.0-100.0); Mean Platelet Volume 11.2 fL (9.4-12.4); Platelet Count 407 K/mcL (140-400); Red Blood Count 2.87 M/mcL (4.19-5.50); Red Cell Distribution Width 17.7 % (11.5-14.5)
[2020-02-22 14:24] LABS: White Blood Count 33.8 K/mcL (4.3-11.1)
[2020-02-22 14:41] LABS: Lymphocytes # 1.4 K/mcL (0.6-4.6); Monocytes # 0.7 K/mcL (0.0-1.3); Neutrophils # 31.8 K/mcL (1.6-8.9); Platelet Estimate Normal (Normal)
[2020-02-22 14:42] LABS: Anisocytosis 1+ (Not Present)
[2020-02-22] MEDS ORDERED: Acetaminophen IV 1,000 MG/100 ML INFUS..BTL IVPB ONE (16:13)
[2020-02-22] MEDS ORDERED: *HR* Metoprolol 5 MG/5 ML VIAL IVP PRN (22:09)
[2020-02-22] MEDS ORDERED: Levalbuterol Neb 1.25 MG/3 ML IH ONE (22:18)
[2020-02-22] MEDS ORDERED: 0.9 % Sodium Chloride 250 ML ONE (22:31)
[2020-02-23] MEDS ORDERED: *HR* Metoprolol 5 MG/5 ML VIAL IVP ONE (00:15)
[2020-02-23] MEDS ORDERED: DilTIAZem 50 MG in 0.9 % Sodium Chloride 40 ML IVC SCH (02:45)
[2020-02-23] MEDS: Haloperidol Lactate 5 MG/ML VIAL IVP SCH ×5 (03:35→16:13)
[2020-02-23] MEDS ORDERED: 0.9 % Sodium Chloride 250 ML IVC ONE (04:38)
[2020-02-23] MEDS: *HR* Heparin 5,000 UNIT/ML VIAL SQ SCH (06:02)
[2020-02-23] MEDS ORDERED: 0.9 % Sodium Chloride 1,000 ML IVC SCH (07:30)
[2020-02-23] MEDS: Budesonide/Formoterol 80/4.5 1 PUFF INH IH SCH ×2 (07:52→19:51)
[2020-02-23] MEDS: Aspirin Enteric Coated 81 MG Tablet PO SCH (08:26)
[2020-02-23] MEDS: Insulin LISPRO 300 UNITS/3 ML VIAL SQ SCH (08:28)
[2020-02-23] MEDS: Insulin DETEMIR 100 UNIT/ML X5UNITS SQ SCH (08:28)
[2020-02-23 08:48] LABS: Mean Corpuscular HGB Conc 30.1 g/dL (31.6-35.5); Mean Corpuscular Volume 98.6 fL (83.0-100.0); Mean Platelet Volume 10.9 fL (9.4-12.4)
[2020-02-23 08:49] LABS: Hematocrit 27.2 % (37.5-50.1); Hemoglobin 8.2 g/dL (12.9-16.9); Mean Corpuscular Hemoglobin 29.7 pg (28.0-33.3); Platelet Count 355 K/mcL (140-400); Red Blood Count 2.76 M/mcL (4.19-5.50); Red Cell Distribution Width 17.6 % (11.5-14.5)
[2020-02-23 08:53] LABS: Calcium 8.9 mg/dL (8.6-10.3); Potassium 4.1 mEq/L (3.5-5.1)
[2020-02-23 09:27] LABS: Nucleated Red Blood Cells 0.1 /100 WBC (0)
[2020-02-23] MEDS ORDERED: Morphine Sulfate 2 MG/ML SYRINGE IVP PRN (10:00)
[2020-02-23] MEDS ORDERED: Atropine Sulfate 1% 40 DROP/2 ML BOTTLE SL PRN (10:01)
[2020-02-23] MEDS ORDERED: Haloperidol Lactate 5 MG/ML VIAL IVP PRN (10:02)
[2020-02-23] MEDS ORDERED: *HR* LORazepam 2 MG/ML VIAL IVP PRN (10:02)
[2020-02-23 10:19] LABS: Lymphocytes # 2.2 K/mcL (0.6-4.6); Monocytes # 3.6 K/mcL (0.0-1.3); Neutrophils # 30.2 K/mcL (1.6-8.9); Platelet Estimate Normal (Normal)
[2020-02-23] MEDS ORDERED: Insulin LISPRO 300 UNITS/3 ML VIAL SQ SCH (12:00)
[2020-02-23] MEDS: Morphine Sulfate Oral CONC 10 MG/0.5 ML ORAL.SYG SL SCH ×3 (13:30→19:46)
[2020-02-24] MEDS: Morphine Sulfate Oral CONC 10 MG/0.5 ML ORAL.SYG SL SCH ×3 (00:17→10:06)
[2020-02-24] MEDS: Haloperidol Lactate 5 MG/ML VIAL IVP SCH ×2 (00:18→06:06)
[2020-02-24 07:16] VITALS: BP 89/59
[2020-02-24] MEDS: Budesonide/Formoterol 80/4.5 1 PUFF INH IH SCH (07:58)
== END 2020-02-24 11:00 | disposition hospice, inpatient (51) | DRG 698 ==
LOC: EMEROOARM 11:09 → 2NNU 11:09 → SUATTDRO 16:23 → 2NNU 02-19 18:15 → 2ANU 02-19 23:04
PROVIDERS: ADMIT Internal Medicine; ATTEND Internal Medicine

== ENCOUNTER 2020-02-24 09:52 | Inpatient (IN) ==
[~2020-02-24 09:52] MED LIST changes: -Aminoglycoside Consult 1 EACH MC ONE; +Atropine Sulfate 1% 40 DROP/2 ML BOTTLE SL PRN
[2020-02-24] MEDS ORDERED: Acetaminophen 650 MG RECTAL SUPP RC PRN (09:58)
[2020-02-24] MEDS ORDERED: Scopolamine Patch 1.5 MG PATCH.TD72 TD SCH (10:00)
[2020-02-24] MEDS ORDERED: Ipratropium/Albuterol Neb 3 ML IH PRN (10:01)
[2020-02-24] MEDS ORDERED: *HR* LORazepam 2 MG/ML VIAL IVP PRN (10:01)
[2020-02-24] MEDS ORDERED: Morphine Sulfate 2 MG/ML SYRINGE IVP PRN (10:03)
[2020-02-24] MEDS ORDERED: Haloperidol Lactate 5 MG/ML VIAL IVP PRN (10:05)
[2020-02-24] MEDS: Morphine Sulfate Oral CONC 10 MG/0.5 ML ORAL.SYG SL SCH ×3 (12:16→22:11)
[2020-02-24] MEDS: Haloperidol Oral Conc 10 MG/5 ML UDC PO SCH ×3 (12:17→22:11)
[2020-02-25] MEDS: Haloperidol Oral Conc 10 MG/5 ML UDC PO SCH ×4 (04:04→22:05)
[2020-02-25] MEDS: Morphine Sulfate Oral CONC 10 MG/0.5 ML ORAL.SYG SL SCH ×6 (04:24→20:01)
[2020-02-25] MEDS ORDERED: Scopolamine Patch 1.5 MG PATCH.TD72 TD ONE (17:02)
[2020-02-26] MEDS: Morphine Sulfate Oral CONC 10 MG/0.5 ML ORAL.SYG SL SCH ×4 (00:10→11:59)
[2020-02-26] MEDS: Haloperidol Oral Conc 10 MG/5 ML UDC PO SCH ×2 (04:06→09:04)
[2020-02-26 07:22] VITALS: BP 104/71
== END 2020-02-26 12:45 | disposition hospice, inpatient (51) ==
LOC: 2ANU 10:53
PROVIDERS: ADMIT Internal Medicine Hospice and Palliative Medicine; ATTEND Internal Medicine Hospice and Palliative Medicine